=== PATIENT | male | born 1960 | race Caucasian/White ===

== ENCOUNTER 2020-04-20 14:35 | Emergency (ER) | payer MEDICARE, MEDICAID, SELFPAY ==
[2020-04-20] VITALS (29 sets, daily range): BP systolic 116–184; BP diastolic 58–103; PULSE 65–108; RESP 13–32; TEMP 36.7; O2SAT 97–100
[2020-04-20] MEDS: Naloxone 0.4 MG/ML VIAL (14:45)
--- NOTE | 2020-04-20 14:45 | DI.CT_ITS ---
EXAM: CT CHEST/ABD/PEL WO CLINICAL HISTORY: Unresponsive, trauma TECHNIQUE: COMPARISON: No exams were available for comparison FINDINGS: CT examination of the chest, abdomen, and pelvis was performed without contrast administration. No a cute fracture identified. No intrapulmonary infiltrate. No pneumothorax or hemothorax. No mediasti nal hematoma. Tracheobronchial tree appears intact. Liver, spleen, and pancreas grossly unremarkable by noncontrast criteria. Significant motion artifac t noted. Gallbladder and bile ducts grossly unremarkable. Kidneys grossly unremarkable as are the a drenals. No focal bowel pathology. No free intraperitoneal air or free intraperitoneal fluid. No e vidence of bowel obstruction. Normal appendix. No evidence of diverticulitis. Brewster catheter noted in urinary bladder. IMPRESSION: Limited scan secondary to motion and lack of IV contrast. No acute abnormality seen.
--- NOTE | 2020-04-20 14:45 | DI.CT_ITS ---
EXAM: CT HEAD CERVICAL SPINE WO CLINICAL HISTORY: Unresponsive, trauma TECHNIQUE: COMPARISON: No exams were available for comparison FINDINGS: CT examination cervical spine was performed without contrast administration. Old C6-7 anterior fusio n noted. No evidence of acute fracture or dislocation. No cervical mass or adenopathy. Tracheolary ngeal structures appear intact. Noncontrast cranial CT was performed. There is a large intraventricular hemorrhage involving predomi nantly right lateral ventricle but also with hemorrhage in left lateral ventricle 3rd ventricle and 4 th ventricle. There is mild hydrocephalus. The intraventricular hemorrhage is likely to arise from a right-sided basal ganglia hemorrhage which of appears to arise in the caudate head on the right. No calvarial fracture. Unremarkable appearance of paranasal sinuses, mastoid air cells, orbital and temporal bone structures. IMPRESSION: No cervical spine injury seen. Large intraventricular hemorrhage, probably arising in right basal ganglia, findings suggesting hydro cephalus secondary to the intra ventricular blood.
[2020-04-20] MEDS: Ondansetron 4 MG/2 ML VIAL IVP (14:54)
[2020-04-20] MEDS: Normal Saline 1,000 ML 1000 ML IV ×2 (14:54→15:40)
--- NOTE | 2020-04-20 14:55 | ED.GENADUL_ITS ---
Discharge Plan Disposition Patient Disposition: [facility] Condition: Serious Discharge Details Chief Complaint: OD/Poison Clinical Impression: Intracranial hemorrhage Primary Care Provider: Mackenzie Oneal ED Provider: Linden Hendrickson Home Meds and New Rx's Prescriptions: No Action omeprazole 40 mg capsule,delayed release(DR/EC) 40 mg PO DAILY RF: 0 ibuprofen 600 mg tablet 600 mg PO TID PRN PRNRF: 0 Medical Decision Making <EMBER Angel - Last Filed: 04/20/20 16:27> This is a 60-year-old gentleman presenting to the ER via EMS for altered mental status, last known normal time approximately 1 hour ago. Patient is a known alcoholic, has been sober for a few months until drinking again the last 2 weeks. Last drink yesterday. He did snort Ritalin today. Patient presents nonverbal, does seem to move all extremities although does not follow command. Does occasionally open his eyes but again not to command. Given the contusion on his forehead, altered mental status, will initiate a trauma work-up, obtain 2 large-bore IVs, give IV fluid, banana bag. Case was immediately discussed with Dr. Dennis. She did personally evaluate the patient, please see her note. I received a call from radiology regarding his head CT. Appears to have a large intracranial hemorrhage. Given this images were pushed to [facility] and I reached out to [facility] transfer center. I first spoke with Dr. Moreno regarding the case, neurosurgery. He wanted to be sure that coags have been drawn and addressed, at this time they are pending but not resulted. He recommends 1 g IV Keppra. I then discussed the case with Dr. Guerra, ER attending, who accepts care of the patient. All appropriate paperwork was completed As patient returned from CT plan is to intubate. Please see note from Dr. Dennis. Upon return he was no longer opening his eyes spontaneously. He did continue to withdraw from pain, moving all 4 extremities but not on command. I did once again speak with the patient's daughter, Dana, she is aware of the gravity of the situation. Patient is now intubated and awaiting transfer to [facility] for intracranial hemorrhage. Blood pressure after intubation, upon discharge, 140/63. CT of abdomen, pelvis. No acute vascular or visceral or bony injury evident in the chest. Both lungs are well aerated. The heart size is normal, old chronic healed fractures of ribs 8 and 9. Anterior wedge compression fracture of T8, chronic. No acute vascular, visceral, bony injury evident in the abdomen or pelvis. No free intraperitoneal air or fluid. A Brewster catheter is present. No evidence of diverticulitis. X-ray of chest status post intubation reveals distal tip of endotracheal tube lies 6.6 m above the liya at the level of the heads of both clavicles. NG tube placed. Right upper lobe and lower lobe patchy density, could be early foci of acute viral or atypical pneumonia versus pneumonitis versus interstitial pulmonary edema Medical Records Medical records reviewed: Yes I reviewed the patient's medical records. Imaging Data Radiologic Study: Attestation: I personally reviewed and interpreted this imaging study as follows: Imaging: CT Scan My impression: Intracranial hemorrhage including the right basal ganglia and extension into the ventricles with some suggestion of some developing hydrocephalus. No evidence of acute bony injury. I currently do not have a read for the chest, abdomen, pelvis. Lab Data Lab results reviewed: Yes I reviewed the patient's lab results. Lab results narrative: Laboratory Tests Range/Units 04/20/20 04/20/20 04/20/20 14:50 14:50 14:50 WBC (4.4-10.8) k/cumm RBC (4.50-6.00) m/cumm Hgb (13.5-17.5) g/dL Hct (40.0-50.0) % MCV (80-95) fL MCH (27.0-33.0) pg MCHC (32.0-36.0) g/dL RDW (11.8-14.1) % Plt Count (130-400) x1000/uL MPV (8.0-11.0) fL Immature Gran % % Neutrophils % Lymphocytes % Monocytes % Eosinophils % Basophils % Absolute Neutrophils (1.2-6.7) k/cumm Absolute Lymphocytes (1.2-3.4) k/cumm Absolute Monocytes (0.11-0.7) k/cumm Absolute Eosinophils (0.0-0.7) k/cumm Absolute Basophils (0.0-0.2) k/cumm Sodium (136-145) mmol/L 135 L Potassium (3.5-5.1) mmol/L 4.3 Chloride (98-107) mmol/L 99 Carbon Dioxide (21.0-32.0) mmol/L 25.6 Anion Gap (3-11) mmol/L 10.4 BUN (7-18) mg/dL 12 Creatinine (0.70-1.30) mg/dL 0.78 Estimated GFR/1.73 m2 (mL/min/1.73m2) >= 60.00 Glucose (74-106) mg/dL 102 Lactate (0.6-1.4) mmol/L 1.4 Calcium (8.5-10.1) mg/dL 9.0 Magnesium (1.8-2.4) mg/dL 1.8 Total Bilirubin (0.2-1.0) mg/dL 0.8 AST (15-37) U/L 166 H ALT (16-63) U/L 199 H Alkaline Phosphatase (46-116) U/L 80 Troponin I (<0.06) ng/mL < 0.05 Total Protein (6.4-8.2) g/dL 8.5 H Albumin (3.4-5.0) g/dL 4.3 Urine Color (Yellow) Urine Clarity (Clear) Urine pH (5-8) Ur Specific [place] (1.005-1.025) Urine Protein (Negative) mg/dL Urine Ketones (Negative) mg/dL Urine Blood (Negative) Urine Nitrite (Negative) Urine Bilirubin (Negative) Urine Urobilinogen (Up TO 0.2) EU/dL Ur Leukocyte Esterase (Negative) Urine Glucose (Negative) mg/dL Salicylates (2.8-20.0) mg/dL 3.6 Urine Opiates Screen (Negative) Urine Methadone Screen (Negative) Acetaminophen (10-30) ug/mL < 2 Ur Barbiturates Screen (Negative) Ur Tricyclics Screen (Negative) Ur Amphetamines Screen (Negative) U Benzodiazepines Scrn (Negative) Urine Cocaine Screen (Negative) Ur THC Screen (Negative) Ethyl Alcohol (<3) mg/dL < 3.0 Range/Units 04/20/20 04/20/20 04/20/20 14:50 14:50 14:50 WBC (4.4-10.8) k/cumm 6.14 RBC (4.50-6.00) m/cumm 4.55 Hgb (13.5-17.5) g/dL 15.4 Hct (40.0-50.0) % 43.8 MCV (80-95) fL 96.3 H MCH (27.0-33.0) pg 33.8 H MCHC (32.0-36.0) g/dL 35.2 RDW (11.8-14.1) % 12.5 Plt Count (130-400) x1000/uL 183 MPV (8.0-11.0) fL 9.0 Immature Gran % % 0.0 Neutrophils % 74.2 Lymphocytes % 20.2 Monocytes % 5.2 Eosinophils % 0.2 Basophils % 0.2 Absolute Neutrophils (1.2-6.7) k/cumm 4.56 Absolute Lymphocytes (1.2-3.4) k/cumm 1.24 Absolute Monocytes (0.11-0.7) k/cumm 0.32 Absolute Eosinophils (0.0-0.7) k/cumm 0.01 Absolute Basophils (0.0-0.2) k/cumm 0.01 Sodium (136-145) mmol/L Potassium (3.5-5.1) mmol/L Chloride (98-107) mmol/L Carbon Dioxide (21.0-32.0) mmol/L Anion Gap (3-11) mmol/L BUN (7-18) mg/dL Creatinine (0.70-1.30) mg/dL Estimated GFR/1.73 m2 (mL/min/1.73m2) Glucose (74-106) mg/dL Lactate (0.6-1.4) mmol/L Calcium (8.5-10.1) mg/dL Magnesium (1.8-2.4) mg/dL Total Bilirubin (0.2-1.0) mg/dL AST (15-37) U/L ALT (16-63) U/L Alkaline Phosphatase (46-116) U/L Troponin I (<0.06) ng/mL Total Protein (6.4-8.2) g/dL Albumin (3.4-5.0) g/dL Urine Color (Yellow) Yellow Urine Clarity (Clear) Clear Urine pH (5-8) 6.0 Ur Specific [place] (1.005-1.025) 1.025 Urine Protein (Negative) mg/dL Negative Urine Ketones (Negative) mg/dL 80 H Urine Blood (Negative) Negative Urine Nitrite (Negative) Negative Urine Bilirubin (Negative) Negative Urine Urobilinogen (Up TO 0.2) EU/dL 1.0 H Ur Leukocyte Esterase (Negative) Negative Urine Glucose (Negative) mg/dL Negative Salicylates (2.8-20.0) mg/dL Urine Opiates Screen (Negative) Negative Urine Methadone Screen (Negative) Negative Acetaminophen (10-30) ug/mL Ur Barbiturates Screen (Negative) Negative Ur Tricyclics Screen (Negative) Negative Ur Amphetamines Screen (Negative) Negative U Benzodiazepines Scrn (Negative) Negative Urine Cocaine Screen (Negative) Negative Ur THC Screen (Negative) Positive A Ethyl Alcohol (<3) mg/dL ECG Data Attestation: I personally reviewed and interpreted this ECG (s) as follows: Interpretation: EKG performed at 1441, reviewed and interpreted Dr. Dennis. Sinus rhythm, ventricular rate of 80. No STEMI. <Khadijah Dennis, DO - Last Filed: 04/20/20 18:21> I have seen and examined this patient from the moment of arrival to the ED and participated throughout his stay in the ED. Blood pressure hypertensive, remainder vitals within normal limits on arrival. He has a positive gag reflex, was responsive to painful stimuli and voice but did not open his eyes or speak. GCS 6. No response to Narcan 0.4 mg x 1. Patient sent directly to CT. Patient noted to have large intracranial hemorrhage right basal ganglia with extension into the ventricles. Shortly after return from CT, still with positive gag reflex and normal vitals, plan for intubation given GCS 6 in setting of intracranial hemorrhage. Patient was given 20 mg of etomidate and 80 mg of succinylcholine. Intubation first attempted by EMBER Hendrickson without visualization of the cords. I was able to intubate him on first attempt with visualization of the cords. Tube initially placed with 28cm at the teeth but diminished breath sounds noted equally on auscultation. Tube then pulled back to 23cm at the teeth and breath sounds improved. ET tube confirmed by portable chest x-ray. Suspect possibly acute cva secondary to hypertensive emergency status post acute ritalin intoxication. I discussed case and reviewed note with the PA and I agree with plan and note as documented. Medical Records Medical records reviewed: Yes I reviewed the patient's medical records. HPI <EMBER Angel - Last Filed: 04/20/20 16:27> General Mode of arrival: EMS . Date/Time Provider Initiated Documentation: 04/20/20 14:37 . Limitations to Documentation: altered mental status . Information obtained by: family (Significant other spoke with EMS) and EMS . HPI Narrative: This is a 60-year-old gentleman with history of GERD, alcohol abuse, presenting to the ER via EMS. Apparently last known normal time was approximately 1 hour ago although this timeframe is not certain. His significant other found him unresponsive. Apparently per her he has not been drinking alcohol today but has been snorting Ritalin. Unknown other drug use. Extremely limited initial HPI. I was able to speak with his daughter and power of assistant city attorney Dana Burnett. She reports that he has been sober since November, just starting to drink over the past 2-3 weeks. He does occasionally use marijuana but she is not aware of any other drug use. She is unaware of recent illness. Apparently roughly 1 week ago while intoxicated he did fall striking his head. Related Data Home Medications Medication Instructions Recorded Confirmed ibuprofen 600 mg PO TID PRN PRN 04/20/20 04/20/20 omeprazole 40 mg PO DAILY 04/20/20 04/20/20 Allergies Allergy/AdvReac Type Severity Reaction Status Date / Time No Known Allergies Allergy Unverified 04/20/20 14:47 General Stated Complaint: OD/Poison NELDA: 2 Review of Systems <EMBER Angel - Last Filed: 04/20/20 16:27> Unobtainable due to mental status PFSH <EMBER Angel - Last Filed: 04/20/20 16:27> Social History Smoking/Tobacco Use Status: Current every day Alcohol Intake: current Substance use type: marijuana and other Details: Ritalin-snorting Exam <EMBER Angel - Last Filed: 04/20/20 16:27> Const General: acute distress Orientation: obtunded (Patient does withdrawal from pain, occasionally opens eyes) Limitations: altered mental status HENWY Head: no palpable skull fracture, normocephalic and contusion (Across the forehead) General nose exam: external nose normal Mouth: oral mucosae normal and moist mucous membranes Teeth and gingiva: poor dentition Throat: posterior oropharynx normal Eyes General: appearance normal, both eyes and all related structures Alignment and Position: alignment normal Periorbital: periorbital findings normal Eyelids: eyelids normal Conjunctivae: conjunctivae normal Sclera: sclerae normal Cornea: corneas normal Pupils: PERRL Direct ophthalmoscopy: normal light reflex Neck Neck: normal visual inspection, no lymphadenopathy, trachea midline and supple Chest Chest: normal inspection of the chest and normal palpation of entire chest wall Resp Effort & Inspection: normal respiratory effort Auscultation: clear to auscultation bilaterally Cardio Rate: regular rate Rhythm: regular rhythm GI Inspection: normal to inspection Palpation: soft, not firm, no guarding and not rigid Auscultation: normal bowel sounds Back/Spine/Pelvis Back: No back tenderness Skin General skin exam: no rashes or lesions noted Neuro General: moves all extremities and other (Patient is obtunded, occasionally opens eyes.) Cognition: abnormal cognition Speech: other (Unable to assess. Extremely limited neuro exam) Extrem General: normal to inspection, capillary refill normal and no pedal edema Psych Appearance: grossly normal Mental Status: mental status grossly normal Course <Linden Hendrickson PA - Last Filed: 04/20/20 16:27> Vital Signs Vital signs: Vital Signs Pulse Oximetry 99 04/20/20 14:30 Temperature 36.7 C 04/20/20 14:35 Temperature Source Temporal Artery Scan 04/20/20 14:35 Pulse 82 04/20/20 14:35 Respiratory Rate 23 04/20/20 14:35 Respiratory Effort Non-Labored 04/20/20 14:40 Blood Pressure 184/87 H 04/20/20 14:35 Blood Pressure Position Supine 04/20/20 14:35 Pulse Oximetry 99 04/20/20 14:35 Oxygen Delivery Method Non-Rebreather 04/20/20 14:35 Oxygen Flow Rate 10 04/20/20 14:35 <Khadijah Dennis DO - Last Filed: 04/20/20 18:21> Intubation Time out performed: Yes sedative: Etomidate Mg Given: 20 paralytic: Succinylcholine Mg Given: 80 Laryngoscope: Denisha ET Tube Size: 7.5 ET Tube Uncuffed: No Tube Secured Depth (cm): 23 Tube Secured Location: teeth Tube Placement Confirmation: visualized tube passing through cords, equal breath sounds bilaterally, no breath sounds over epigastrum and confirmation by capnometry Patient Tolerated Procedure: well Intubation Complications: none Critical Care Time <EMBER Angel - Last Filed: 04/20/20 16:27> Critical Care Time Critical Care Time: Yes Total Critical Care Time: 40 Attestation: Upon my evaluation, this patient had a high probability of clinically significant, life-threatening deterioration due to their current medical conditions, which required my direct attention, intervention, and personal management. I have personally provided greater than 30 minutes of crit ical care time exclusive of the time spend on separately billable procedures. Time includes obtaining a history, examining the patient, pulse oximetry, review of laboratory data, radiology results, discussion with consultants, arranging urgent treatment with development of a management plan, evaluation of patient's response to treatment, and monitoring for potential decompensation. Interventions were performed as documented above.
[2020-04-20 14:57] LABS: Lactate 1.4 mmol/L (0.6-1.4)
[2020-04-20 15:01] LABS: Absolute Basophil Count 0.01 k/cumm (0.0-0.2); Absolute Eosinophil Count 0.01 k/cumm (0.0-0.7); Absolute Lymphocyte Count 1.24 k/cumm (1.2-3.4); Absolute Monocyte Count 0.32 k/cumm (0.11-0.7); Absolute Neutrophil Count 4.56 k/cumm (1.2-6.7); Basophils % 0.2; Eosinophils % 0.2; HCT 43.8 % (40.0-50.0); HGB 15.4 g/dL (13.5-17.5); Lymphocytes % 20.2; Mean Corp. HGB Concentration 35.2 g/dL (32.0-36.0); Mean Corpuscular Hemoglobin 33.8 pg (27.0-33.0); Mean Corpuscular Volume 96.3 fL (80-95); Monocytes % 5.2; Neutrophils % 74.2; Platelet Count 183 x1000/uL (130-400); RBC 4.55 m/cumm (4.50-6.00); RBC Distribution Width 12.5 % (11.8-14.1); White Blood Cell Count 6.14 k/cumm (4.4-10.8)
[2020-04-20 15:03] LABS: Bilirubin Negative (Negative); Blood Negative (Negative); Clarity Clear (Clear); Glucose Negative (Negative); Ketones 80 mg/dL (Negative); Leukocyte Esterase Negative (Negative); Nitrite Negative (Negative); Specific Gravity 1.025 (1.005-1.025)
[2020-04-20 15:11] LABS: Tricyclic Antidepressants Negative (Negative)
[2020-04-20 15:19] LABS: *AMPHETAMINES SCREEN URINE Negative (Negative); *BARBITURATES SCREEN URINE Negative (Negative); *BENZODIAZEPINES SCREEN URINE Negative (Negative); Cannabinoids THC POSITIVE (Negative); Cocaine Screen,Urine Negative (Negative); METHADONE URINE SCREEN Negative (Negative); OPIATES URINE SCREEN Negative (Negative)
[2020-04-20 15:20] LABS: ALT 199 U/L (16-63); AST 166 U/L (15-37); Albumin 4.3 g/dL (3.4-5.0); Alkaline Phosphatase 80 U/L (46-116); Anion Gap 10.4 mmol/L (3-11); BUN 12 mg/dL (7-18); Bilirubin, Total 0.8 mg/dL (0.2-1.0); CO2 25.6 mmol/L (21.0-32.0); CREATININE 0.78 mg/dL (0.70-1.30); Chloride 99 mmol/L (98-107); Glucose 102 mg/dL (74-106); Magnesium 1.8 mg/dL (1.8-2.4); Potassium 4.3 mmol/L (3.5-5.1); Sodium 135 mmol/L (136-145); Total Protein 8.5 g/dL (6.4-8.2)
[2020-04-20 15:21] LABS: Troponin I < 0.05 ng/mL (<0.06)
[2020-04-20 15:33] LABS: Acetaminophen < 2 ug/mL (10-30); Salicylate 3.6 mg/dL (2.8-20.0)
[2020-04-20 15:36] LABS: ETHANOL BLOOD < 3.0 mg/dL (<3)
[2020-04-20] MEDS: Succinylcholine 200 MG/10 ML VIAL 80 MG IVP (15:49)
--- NOTE | 2020-04-20 15:52 | DI.VRAD_ITS ---
Addendum created by Mohamud Singh MD on 04/20/2020 4:08:05 PM EDT THIS REPORT CONTAINS FINDINGS THAT MAY BE CRITICAL TO PATIENT CARE. The findings were verbally communicated via telephone conference with Linden Hendrickson at 4:08 PM EDTon 04/20/2020The findings were acknowledged and understood. Initial report created on 04/20/2020 3:51:52 PM EDT PROCEDURE INFORMATION: Exam: CT Head Without Contrast Exam date and time: 04/20/2020 3:18 PM Age: 60 years old Clinical indication: Other: Unresponsive, trauma TECHNIQUE: Imaging protocol: Computed tomography of the head without contrast. Radiation optimization: All CT scans at this facility use at least one of these dose optimization techniques: automated exposure control; mA and/or kV adjustment per patient size (includes targeted exams where dose is matched to clinical indication); or iterative reconstruction. COMPARISON: No relevant prior studies available. FINDINGS: What appears to be a small right basal ganglia intraparenchymal hemorrhage with extensive extension into the ventricles including extending down into the 4th ventricle most likely with some developing hydrocephalus. Periventricular deep white matter disease consistent with small vessel ischemia. No definite evidence of acute ischemia. Skull appears intact. IMPRESSION: Intra cranial hemorrhage including the right basal ganglia and extension into the ventricles with some suggestion of some developing hydrocephalus. PROCEDURE INFORMATION: Exam: CT Cervical Spine Without Contrast Exam date and time: 04/20/2020 3:18 PM Age: 60 years old Clinical indication: Other: Unresponsive, trauma TECHNIQUE: Imaging protocol: Computed tomography images of the cervical spine without contrast. Radiation optimization: All CT scans at this facility use at least one of these dose optimization techniques: automated exposure control; mA and/or kV adjustment per patient size (includes targeted exams where dose is matched to clinical indication); or iterative reconstruction. COMPARISON: No relevant prior studies available. FINDINGS: Prior anterior interbody fusion at C6-C7. Mild diffuse degenerative disc and facet disease. No evidence of acute fracture. No focal subluxation. IMPRESSION: No evidence of acute bony injury. Dictated and Authenticated by: Mohamud Singh MD. Ordering:BENOIT Cheatham MD
[2020-04-20] MEDS: PROPOFOL 500 MG/50 ML BTL 20.91 MG IVPB (16:02)
[2020-04-20] MEDS: MAGNESIUM SULFATE 8.12 MEQ, MULTIVITAMIN 10 ML, THIAMINE 100 MG, FOLIC ACID 1 MG in Nor... 168.867 MG IV (16:06)
[2020-04-20] MEDS: Etomidate 20 MG/10 ML VIAL IVP (16:08)
[2020-04-20] MEDS: levETIRAcetam 1,000 MG in Normal Saline 100 ML 400 MG IVPB (16:10)
[2020-04-20 16:14] LABS: INR 1.1 (0.9-1.1); PTT Activated 22.5 sec (21.0-31.4); Prothrombin Time 11.4 sec (9.3-11.0)
--- NOTE | 2020-04-20 16:16 | DI.VRAD_ITS ---
PROCEDURE INFORMATION: Exam: CT Chest Without Contrast Exam date and time: 04/20/2020 3:27 PM Age: 60 years old Clinical indication: Other: Unresponsive, trauma TECHNIQUE: Imaging protocol: Computed tomography of the chest without contrast. Radiation optimization: All CT scans at this facility use at least one of these dose optimization techniques: automated exposure control; mA and/or kV adjustment per patient size (includes targeted exams where dose is matched to clinical indication); or iterative reconstruction. COMPARISON: No relevant prior studies available. FINDINGS: Lungs: Both lungs are well-aerated. Pleural space: Unremarkable. No pneumothorax. No pleural effusion. Heart: The heart size is normal. Minimal coronary artery calcification is present. Aorta: Unremarkable. No aortic aneurysm. Lymph nodes: Unremarkable. No enlarged lymph nodes. Bones/joints: No acute bony injury evident in the chest. Old chronic healed fractures of the posterior and posterolateral right ribs 8 and 9 are present. An old chronic anterior wedge compression fracture of the superior endplate of T8 is present with anterior and central height loss of approximately 25%. Soft tissues: Unremarkable. IMPRESSION: 1. No acute vascular, visceral or bony injury evident in the chest. 2. Both lungs are well-aerated. 3. The heart size is normal. Minimal coronary artery calcification is present. 4. Old chronic healed fractures of the posterior and posterolateral right ribs 8 and 9 are present. 5. An old chronic anterior wedge compression fracture of the superior endplate of T8 is present with anterior and central height loss of approximately 25%. PROCEDURE INFORMATION: Exam: CT Abdomen And Pelvis Without Contrast Exam date and time: 04/20/2020 3:27 PM Age: 60 years old Clinical indication: Other: Unresponsive, trauma TECHNIQUE: Imaging protocol: Computed tomography of the abdomen and pelvis without contrast. Radiation optimization: All CT scans at this facility use at least one of these dose optimization techniques: automated exposure control; mA and/or kV adjustment per patient size (includes targeted exams where dose is matched to clinical indication); or iterative reconstruction. COMPARISON: No relevant prior studies available. FINDINGS: Liver: Normal. No mass. Gallbladder and bile ducts: Normal. No calcified stones. No ductal dilation. Pancreas: Normal. No ductal dilation. Spleen: Normal. No splenomegaly. Adrenals: Normal. No mass. Kidneys and ureters: Normal. No hydronephrosis. Stomach and bowel: Moderate distal colonic diverticulosis is present, with no evidence of acute diverticulitis. Appendix: No evidence of appendicitis. Intraperitoneal space: No free intraperitoneal air or fluid. Vasculature: No acute vascular, visceral or bony injury evident in the abdomen or pelvis. Lymph nodes: Unremarkable. No enlarged lymph nodes. Bladder: A Brewster catheter is present within the urinary bladder. Reproductive: Unremarkable as visualized. Bones/joints: An old chronic anterior wedge compression fracture of the superior endplate of L5 is present with anterior and central height loss of approximately 30-35%. Soft tissues: Unremarkable. IMPRESSION: 1. No acute vascular, visceral or bony injury evident in the abdomen or pelvis. 2. No free intraperitoneal air or fluid. 3. Moderate distal colonic diverticulosis is present, with no evidence of acute diverticulitis. 4. A Brewster catheter is present within the urinary bladder. 5. An old chronic anterior wedge compression fracture of the superior endplate of L5 is present with anterior and central height loss of approximately 30-35%. Dictated and Authenticated by: Hakan Chiang MD. Ordering:BENOIT Cheatham MD
--- NOTE | 2020-04-20 16:17 | DI.RAD_ITS ---
EXAM: XR PORTABLE CHEST AP POST LINE CLINICAL HISTORY: s/p intubation TECHNIQUE: COMPARISON: CR CHEST 2 VIEWS PA,LAT from 03/03/2015 FINDINGS: Portable AP chest was performed in supine position. Cardiac size within normal limits. Lungs are gr ossly clear. ET tube noted about 7 cm above the liya. NG tube noted in position. IMPRESSION:
--- NOTE | 2020-04-20 16:20 | DI.VRAD_ITS ---
Addendum created by Hakan Chiang MD on 04/20/2020 4:21:46 PM EDT The accompanying CT chest exam shows no evidence of abnormal lung parenchyma in the right upper and right lower lobes, however. These likely represent radiographic artifact on the chest x-ray. Initial report created on 04/20/2020 4:20:23 PM EDT PROCEDURE INFORMATION: Exam: XR Chest, 1 View Exam date and time: 04/20/2020 4:09 PM Age: 60 years old Clinical indication: Device placement; Other: S/P intubation TECHNIQUE: Imaging protocol: XR of the chest Views: 1 view. COMPARISON: No relevant prior studies available. FINDINGS: Tubes, catheters and devices: The distal tip of an endotracheal tube lies 6.6 cm above the liya at the level of the heads of both clavicles. An esophagogastric tube is present with the distal tip of the tube below the diaphragm outside the field of view of the radiograph. Lungs: Small patchy areas of increased interstitial density are seen in the right upper lobe and right lower lobe. These could represent early foci of acute viral or atypical pneumonia/pneumonitis versus interstitial pulmonary edema. Pleural space: Unremarkable. No pleural effusion. No pneumothorax. Heart/Mediastinum: Unremarkable. No cardiomegaly. Bones/joints: Plate and screw fixation metallic hardware is seen in the lower cervical spine. IMPRESSION: 1. The distal tip of an endotracheal tube lies 6.6 cm above the liya at the level of the heads of both clavicles. 2. An esophagogastric tube is present with the distal tip of the tube below the diaphragm outside the field of view of the radiograph. 3. Small patchy areas of increased interstitial density are seen in the right upper lobe and right lower lobe. These could represent early foci of acute viral or atypical pneumonia/pneumonitis versus interstitial pulmonary edema. Dictated and Authenticated by: Hakan Chiang MD. Ordering:BENOIT Cheatham MD
[2020-04-20] MEDS: Normal Saline Flush 10 ML SYR IVP (17:12)
[2020-04-20] MEDS: PROPOFOL 500 MG/50 ML BTL IVPB (18:07)
--- NOTE | 2020-04-20 18:08 | NUR.NOTE ---
versed drip not given. DART did not want to use it.Nursing Note:
--- NOTE | 2020-04-21 14:22 | NUR.NOTE ---
30 propofol started at 5/mcg and increased to 40 mcg/kg/min. 2 boluses of 20mg given.Nursing Note:
== END 2020-04-20 16:45 | disposition short-term general hospital (02) ==
PROVIDERS: Emergency Provider Physician Assistant; PCP Nurse Practitioner Family
DX: T43.631A Poisoning by methylphenidate, accidental (unintentional), initial encounter (principal); I62.9 Nontraumatic intracranial hemorrhage, unspecified; S00.83XA Contusion of other part of head, initial encounter; W19.XXXA Unspecified fall, initial encounter; F10.20 Alcohol dependence, uncomplicated; F15.10 Other stimulant abuse, uncomplicated; I10 Essential (primary) hypertension; R40.2432 Glasgow coma scale score 3-8, at arrival to emergency department
CPT/HCPCS: 31500; 36415; 36416; 51702; 71045; 71250; 80053; 80307; 82962; 93005; 96361; 96365; 96368; 96374; 96375; 96376; 99291; 70450; 72125; 74176; 80320; 80329; 81003; 83605; 83735; 84484; 85025; 85610; 85730; 93010; J1953; J2310; J2405

== ENCOUNTER 2020-06-28 16:39 | Outpatient (REF) | payer MEDICARE, MEDICAID, SELFPAY ==
[2020-06-28 17:59] LABS: HCT 41.9 % (40.0-50.0); HGB 14.1 g/dL (13.5-17.5); MCH 33.7 pg (27.0-33.0); MCHC 33.7 % (32.0-36.0); MPV 9.3 fL (8.0-11.0); Platelet Count 290 10^3/uL (130-400); RBC 4.19 10^6/uL (4.36-5.78); RDW 12.8 % (11.8-14.1); RDW-SD 47.2 fL
[2020-06-28 18:00] LABS: Anion Gap 7.3 mmol/L (3-11); BUN 10 mg/dL (7-18); CO2 29.7 mmol/L (21.0-32.0); CREATININE 0.74 mg/dL (0.70-1.30); Calcium 9.4 mg/dL (8.5-10.1); Chloride 101 mmol/L (98-107); Glucose 99 mg/dL (74-106); Potassium 4.5 mmol/L (3.5-5.1); Sodium 138 mmol/L (136-145); TSH (W/Ref FT4) 2.36 uIU/mL (0.36-3.74)
[2020-06-28 19:08] LABS: ESR 21 mm/hr (1-20)
== END 2020-06-28 16:59 ==
LOC: NCHCN 16:39
PROVIDERS: PCP Nurse Practitioner Family; Visit Provider Nurse Practitioner Family
DX: R51 Headache (principal); I10 Essential (primary) hypertension
CPT/HCPCS: 80048; 85027; 85652; 83735; 84443

== ENCOUNTER 2020-07-05 12:23 | Outpatient (REF) | payer MEDICARE, MEDICAID, SELFPAY ==
[2020-07-05 20:35] LABS: INR 1.1 (0.9-1.1); Prothrombin Time 10.9 sec (9.3-11.0)
[2020-07-05 20:56] LABS: ALT 46 U/L (16-63); AST 34 U/L (15-37); Albumin 3.7 g/dL (3.4-5.0); Alkaline Phosphatase 74 U/L (46-116); Bilirubin, Direct 0.12 mg/dL (0.00-0.20); Bilirubin, Total 0.4 mg/dL (0.2-1.0); Total Protein 7.5 g/dL (6.4-8.2)
[2020-07-08 09:11] LABS: HBs Antibody, Quant <3.1 mIU/mL (See Note); Hepatitis B Surface Ab Negative (See Note)
[2020-07-08 09:21] LABS: Hepatitis B Surface Ag Negative (Negative)
[2020-07-08 10:33] LABS: HIV-1/2 Ag & Ab Screen Negative (Negative)
[2020-07-08 10:36] LABS: Hep A Total Ab w Rflx IgM Positive (Negative)
[2020-07-08 13:45] LABS: HCV RNA Detection Quantitative 10719 IU/mL (Undetected); HCV RNA Qualitative Detected (Undetected)
[2020-07-08 14:29] LABS: Hep A Antibody IgM Negative (Negative)
[2020-07-12 14:43] LABS: ALT 36 U/L (7-55); ActiTest Grade A1; ActiTest Interpretation minimal activity; ActiTest Score 0.29; Alpha-2-Macroglobulin 448 mg/dL (100 - 280); Apoliprotein A1 124 mg/dL (>=120); Bilirubin, Total 0.3 mg/dL (<=1.2); FibroTest Interpretation advanced fibrosis; FibroTest Score 0.68; FibroTest Stage F3; GGT 73 U/L (8 - 61); Haptoglobin 172 mg/dL (30 - 200)
== END 2020-07-05 12:43 ==
LOC: NCHCN 12:23
PROVIDERS: PCP Nurse Practitioner Family; Visit Provider Family Medicine
DX: B18.2 Chronic viral hepatitis C (principal); Z11.4 Encounter for screening for human immunodeficiency virus [HIV]
CPT/HCPCS: 80076; 81596; 86706; 86709; 87340; 87389; 87522; 85610; 86704; 87521

== ENCOUNTER 2023-03-08 13:41 | Outpatient (REF) | payer MEDICARE, MEDICAID, SELFPAY ==
[2023-03-08 15:23] LABS: HCT 42.3 % (40.0-50.0); MCH 33.9 pg (27.0-33.0); MCHC 35.5 % (32.0-36.0); MCV 96 fL (80-95); MPV 9.2 fL (8.0-11.0); Platelet Count 169 10^3/uL (130-400); RBC 4.43 10^6/uL (4.36-5.78); RDW 12.6 % (11.8-14.1); RDW-SD 44.6 fL; WBC 5.03 10^3/uL (4.4-10.8)
[2023-03-08 15:34] LABS: ALT 75 U/L (16-63); AST 96 U/L (15-37); Albumin 3.4 g/dL (3.4-5.0); Alkaline Phosphatase 102 U/L (46-116); Anion Gap 7.3 mmol/L (3-11); BUN 9 mg/dL (7-18); Bilirubin, Total 0.7 mg/dL (0.2-1.0); CO2 28.7 mmol/L (21.0-32.0); CREATININE 0.9 mg/dL (0.70-1.30); Calcium 8.8 mg/dL (8.5-10.1); Calculated LDL 127 mg/dL (<100); Chloride 102 mmol/L (98-107); Cholesterol 191 mg/dL (<200); Estimated GFR 95.37 (mL/min/1.73m2); Glucose 93 mg/dL (74-106); HDL Cholesterol 46 mg/dL (40-60); Sodium 138 mmol/L (136-145); Total Protein 7.5 g/dL (6.4-8.2); Triglyceride 94 mg/dL (<150)
[2023-03-09 21:04] LABS: Hepatitis C Ab w Rflx HCV PCR Reactive (Negative)
[2023-03-10 17:17] LABS: HCV RNA Detection Quantitative 64700 IU/mL (Undetected); HCV RNA Qualitative Detected (Undetected)
== END 2023-03-08 13:42 | disposition home or self-care (01) ==
LOC: NCHCN 13:41
PROVIDERS: PCP Physician Assistant; Visit Provider Physician Assistant
DX: I10 Essential (primary) hypertension (principal); B18.2 Chronic viral hepatitis C; F10.10 Alcohol abuse, uncomplicated
CPT/HCPCS: 80053; 80061; 85027; 86803; 87522

== ENCOUNTER 2024-07-28 21:06 | Emergency (ER) | payer MEDICARE, MEDICAID, SELFPAY ==
[2024-07-28] VITALS (25 sets, daily range): BP systolic 132–163; BP diastolic 63–88; PULSE 68–90; RESP 11–27; O2SAT 91–96
--- NOTE | 2024-07-28 21:15 | RT.EKG_ITS ---
APPROVED REPORT Exam: Resting ECG Reason for Exam: baseline/screening Patient Location: E HR:83 bpm ECG Measurements Heart Rate 83 AXIS NV 172 P 85 QRSd 107 QRS 52 QT 402 T 82 QTc 472 Conclusion Sinus rhythm, rate 83 Intervals normal, no ectopy No STEMI T-wave inversion Lead aVL No priors available for comparison
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
[2024-07-28 21:38] LABS: Abs Immature Grans 0.01 10^3/uL (0.0-0.06); HCT 39.8 % (40.0-50.0); HGB 13.8 g/dL (13.5-17.5); MCH 34.7 pg (27.0-33.0); MCHC 34.7 % (32.0-36.0); MCV 100 fL (80-95); MPV 8.4 fL (8.0-11.0); Platelet Count 158 10^3/uL (130-400); RBC 3.98 10^6/uL (4.36-5.78); RDW 12.5 % (11.8-14.1); RDW-SD 46.5 fL; WBC 4.52 10^3/uL (4.4-10.8)
[2024-07-28 21:55] LABS: ALT 87 U/L (16-63); AST 110 U/L (15-37); Albumin 3.3 g/dL (3.4-5.0); Alkaline Phosphatase 96 U/L (46-116); Anion Gap 11.1 mmol/L (3-11); BUN 7 mg/dL (7-18); Bilirubin, Direct 0.2 mg/dL (0.0-0.2); Bilirubin, Total 0.29 mg/dL (0.2-1.0); CO2 23.9 mmol/L (21.0-32.0); CREATININE 0.7 mg/dL (0.70-1.30); Calcium 8.3 mg/dL (8.5-10.1); Chloride 100 mmol/L (98-107); Creatine Kinase 175 U/L (39-308); ETHANOL BLOOD 264.8 mg/dL (<10); Estimated GFR 102.25 (mL/min/1.73m2); Glucose 97 mg/dL (74-106); Lipase 160 U/L (16-77); Magnesium 2.1 mg/dL (1.8-2.4); Potassium 3.5 mmol/L (3.5-5.1); Sodium 135 mmol/L (136-145); Troponin I 9 ng/L (4-76)
[2024-07-28 22:05] LABS: Absolute Eosinophil Count 0.05 10^3/uL (0.0-0.7); Absolute Lymphocyte Count 2.08 10^3/uL (1.2-3.4); Absolute Monocyte Count 0.54 10^3/uL (0.1-0.8); Absolute Neutrophil Count 1.85 10^3/uL (1.2-6.7); Atypical Lymphocytes % 3 %; Diff Comment Manual Differential; RBC Morphology Normal
[2024-07-28 22:09] LABS: Ammonia 14 umol/L (11-32)
[2024-07-28] MEDS: MAGNESIUM SULFATE 8.12 MEQ, MULTIVITAMIN 10 ML, THIAMINE 100 MG, FOLIC ACID 1 MG in Nor... 168.867 MG IV (22:18)
--- NOTE | 2024-07-28 22:20 | NUR.NOTE ---
Nursing Note: assumed care of pt. pt was out of bed urinating in the garbage and then crawled back into bed. C collar on the floor. pt is slurring his words so bad it is hard to understand what he is saying. He said he had a little to drink tonight when asked. Asked if he snorted any ritalin he just laughed
[2024-07-28 22:22] LABS: Procalcitonin < 0.1 ng/mL
[2024-07-28] MEDS: Omnipaque 350 MG/ML 100 ML BTL IJ (22:26)
[2024-07-28] MEDS: Normal Saline Flush 10 ML SYR IVP (22:27)
[2024-07-28] MEDS: Normal Saline - Diluent 50 ML VIAL IJ (22:27)
--- OUTSIDE RECORDS SUMMARY | 2024-07-28 22:42 | XMS_ITS | Encounter Summary ---
Author Organization [facility] [place] [address] Care Team Providers Care Wind Farm Designer Name Role Phone Andrea Coker DNP Primary Care Provider Encounter Details Date Type Department Care Team (Latest Contact Info) Description 05/10/2020 1:55 PM EDT - 05/31/2020 3:15 PM EDT Hospital Encounter [facility] [place] [address] [place] [phone] Penelope Melendez MD [address] [place] [address] Chronic hepatitis C without hepatic coma; Intraventricular hemorrhage; Hypertension, unspecified type; Hemiparesis of left nondominant side due to cerebrovascular disease Discharge Disposition: Home with VNA Social History Tobacco Use Types Packs/Day Years Used Date Smoking Tobacco: Every Day Smokeless Tobacco: Never Alcohol Use Standard Drinks/Week Comments Yes 0 (1 standard drink = 0.6 oz pur e alcohol) Sex and Gender Information Value Date Recorded Sex Assigned at Not on file Gender Identity Not on file Sexual Orientation Not on file documented as of this encounter Last Filed Vital Signs Vital Sign Reading Time Taken Comments Blood Pressure 109/68 05/31/2020 10:57 AM EDT Pulse 94 05/28/2020 4:00 PM EDT Temperature 36.6 ??C (97.8 ??F) 05/31/2020 9:13 AM ED T Respiratory Rate 16 05/31/2020 9:13 AM EDT Oxygen Saturation 96% 05/31/2020 9:13 AM EDT Inhaled Oxygen Concentration - - Weight 58.8 kg (129 lb 9.6 oz) 05/25/2020 9:00 A M EDT Height 172.7 cm (5' 8) 05/10/2020 2:08 PM EDT Body Mass Index 19.71 05/10/2020 2:08 PM EDT documented in this encounter Discharge Summaries * Penelope Melendez MD - 05/31/2020 11:08 AM EDT Discharge Summary Patient Name: Yaritza Burnett Sr. Patient Age: 60 y.o. Language: [place] Race: White Ethnicity: Not nor Admit date: 05/10/2020 Discharge date and time: 05/31/2020 Attending Physician: Penelope Melendez MD Discharge Physician: PENELOPE MELENDEZ MD Follow-up Recommendations for Providers: 1. Patient needs follow-up with primary care or gastroenterology regarding definitive treatment forhepatitis C. Discharge Diagnoses (Hospital Problems) and Secondary Diagnoses (Chronic Problems): Active Hospital Problems Diagnosis ??? Hepatitis C virus infection without hepatic coma ??? Intraparenchymal hematoma of brain ??? Hypertension ??? Hemiparesis of left nondominant side due to cerebrovascular disease ??? Dysphagia due to recent cerebrovascular accident ??? SIADH (syndrome of inappropriate ADH production) ??? DVT (deep venous thrombosis) LLE ??? Superficial venous thrombosis of arm, bilateral ??? Intraventricular hemorrhage Resolved Hospital Problems No resolved problems to display. Active Non-Hospital Problems Diagnosis ??? Drug abuse ??? Pneumonia due to Haemophilus influenzae ??? Compression of brain due to spontaneous cerebral hemorrhage Operations/Major Procedures: Operations: Other Major Procedures: History of Presentation: ID: Yaritza Burnett Sr. is a 60 y.o. male who presents to [facility] with left hemiparesis (nondominant) secondary to stroke. ?? History of Present Illness: Patient is a 60-year-old right-handed male patient who is not able to tell me who his primary care providers who on 04/20/2020 was brought to [facility] with acute mental status changes. CT scan there showed very large intraventricular hemorrhage. He was transferred to [facility] for neurosurgical evaluation. ?? CT/CTA 04/20/2020 showed right caudate intraparenchymal hemorrhage with intraventricular extension; supratentorial hydrocephalus; no aneurysm or large vessel occlusion. MRI brain 04/21/2020 showed right basal ganglia hemorrhage with intraventricular extension and ventricular enlargement; no underlying mass. MRI brain 04/23/2020 showed scattered punctate central and white matter infarcts likely microembolic right greater than left; known basal ganglia hemorrhage. CT of the brain 05/01/2020 showed improvement of intraventricular hemorrhage with stable right intraparenchymal hemorrhage. MRI/MRA brain 05/03/2020 showed persistent ventriculomegaly and extensive intraventricular hemorrhage; no new changes; no changes from prior study. ?? Transthoracic echocardiogram 04/22/2020 showed normal left ventricular size and motion with ejection fraction 60%. Venous duplex bilateral lower extremities 04/29/2020 showed right was negative for DVT; left subacute/chronic nonocclusive DVT. Venous duplex bilateral upper extremity 05/01/2020 showed right acute superficial thrombosis; left nonocclusive DVT subclavian vein; acute superficial thrombus basilic vein left upper extremity. Venous duplex bilateral lower extremity 05/06/2020 showed no change. ?? He was diagnosed with SIADH and was on fluid restriction. This has since resolved. He was also treated for an H. influenzae pneumonia. Preadmission Functional Status: Max assist to dependent for ADLs. Dependent for bed mobility transfers. Social/Functional History: Patient states he is and lives in a trailer with no steps the front door. He was independent with his ambulation ADLs. He denies any bowel or bladder complaints. He states he does not drive and does not have a handicap placard. Hospital Course: Left hemiparesis (nondominant) secondary to stroke: Patient has done extremely well. At the time ofdischarge he was independent in his room. Follow-up with primary care. He has had excellent recovery. Etiology was felt to be hypertensive bleed. His blood pressure was well controlled and will be discussed further below. Hypertension: Patient came to rehab on lisinopril and amlodipine. His blood pressure medications were frequently held because of hypotension and they were eventually both discontinued. He did well off of them up until just before discharge. Couple days prior to discharge his blood pressure was again registering in the 130s and 140s systolically. He was restarted on amlodipine at 10 mg however hispressures then dropped back down into the low 100s or even less than 100 systolically. His amlodipine then was decreased to 5 mg and he will go home on that. Talked with the patient about getting a blood pressure cuff and monitor his pressures so we can better communicate with primary care. Home [facility] nursing will also be monitoring his blood pressure. Dysphagia: He did well. Modified barium swallow that showed relatively normal functioning. His dietwas advanced to mechanical soft and thin liquids. Patient however chose to be on a pur??ed diet because of poor dentition not because of swallowing difficulties. Dysphonia/cognition: He is done well. His voice volume has significantly improved. He initially presented with a very soft whisper type of voice. At this point he can have normal functioning voice sometimes needing prompting. Comprehension and expression are both supervision. Problem solving and memory are mod to max assist however. Left lower extremity nonocclusive DVT: Doppler studies done prior to coming to rehab suggested thiswas chronic. No further intervention was required. DVT prophylaxis: He continued on Lovenox 40 mg daily until his mobility improved. Hepatitis C: Patient was noted to have elevated transaminitis which was also occurring prior to coming here. Hepatitis panel was done that was positive for hepatitis C. His hepatitis C PCR showed a significant viral load at [phone]. In talk with the patient he states he was diagnosed a couple months ago with hepatitis C. Gastroenterology saw the patient and actually was able to learn he was probably diagnosed as far back as 2010. Does not appear the patient had any follow-up. He deftly should have follow-up with primary care or gastroenterology in his area to look at definitive treatment. Of note his hepatitis A antibody was also positive but the hepatitis A IgM was negative. Smoking: Patient was advised against returning to smoking. He decided to use the nicotine patch here at 21 mg daily. He should continue on that at home and taper down. He should follow-up with primary care. Rehab Course: Patient is independent to modified independent with his mobility and his ADLs. Vital Signs at Discharge: BP: 109/68, Heart Rate: 94, Temp: 36.6 ??C (97.8 ??F), Resp: 16, BMI (Calculated): 18.94 Height: 172.7 cm (5' 8) (05/10/20 1408) Weight: 58.8 kg (129 lb 9.6 oz) (05/25/20 0900) Important Studies and Lab Data: Labs: Last 3 wbc, hgb, hct plt Recent Labs 05/11/20 0652 05/09/20 0931 05/08/20 0542 WBC 5.6 7.5 8.4 HGB 13.4* 12.9* 12.6* HCT 40.6 37.8* 37.2* PLATELET 492* 506* 468* Last 3 Lytes Recent Labs 05/17/20 0654 05/11/20 0652 05/09/20 0529 NA 135 134* 136 K 4.3 3.6 4.2 CL 99 100 102 CO2 28 22 21* BUN 15 19 14 CREATININE 0.65* 0.52* 0.53* Component Latest Ref Rng & Units 05/20/2020 05/13/2020 05/12/2020 Total Protein 6.1 - 8.0 gm/dL 7.4 Albumin 3.2 - 5.2 gm/dL 3.5 AST 0 - 39 unit/L 106 (H) ALT 0 - 55 unit/L 146 (H) Alk Phos 40 - 130 unit/L 104 Total Bilirubin 0.2 - 1.3 mg/dL 0.6 Bili, Direct 0.0 - 0.3 mg/dL 0.2 Iron 45 - 160 mcg/dL 101 TIBC 250 - 450 mcg/dL 203 (L) Iron Saturation 20 - 50 % 50 25-OH Vit D Total 21 - 100 ng/mL 25-OH Vit D Interp HepB Surface Ab Quant IU/L HepB Surface Ab HCV Viral Load IU/mL 769,842 HCV Viral Load Result: 126378 IU/mL . . . Prealbumin 20 - 40 mg/dL Hepatitis A IgM Negative HepB Surface Ag Negative Hep B Core Ab Negative Hepatitis C Ab Negative Hepatitis A Ab Negative Ammonia 16 - 60 mcmol/L 14 (L) Ferritin 30 - 400 ng/mL 637 (H) Component Latest Ref Rng & Units 05/11/2020 Total Protein 6.1 - 8.0 gm/dL Albumin 3.2 - 5.2 gm/dL AST 0 - 39 unit/L ALT 0 - 55 unit/L Alk Phos 40 - 130 unit/L Total Bilirubin 0.2 - 1.3 mg/dL Bili, Direct 0.0 - 0.3 mg/dL Iron 45 - 160 mcg/dL TIBC 250 - 450 mcg/dL Iron Saturation 20 - 50 % 25-OH Vit D Total 21 - 100 ng/mL 24 25-OH Vit D Interp Insufficient HepB Surface Ab Quant IU/L <3.5 HepB Surface Ab Negative HCV Viral Load IU/mL HCV Viral Load Prealbumin 20 - 40 mg/dL 17 (L) Hepatitis A IgM Negative Negative HepB Surface Ag Negative Negative Hep B Core Ab Negative Negative Hepatitis C Ab Negative Positive (A) Hepatitis A Ab Negative Positive (A) Ammonia 16 - 60 mcmol/L Ferritin 30 - 400 ng/mL Studies: US Abdomen Complete IMPRESSION Limited study due to patient inability to perform breath holds and lie decubitus. Limitations as stated above. No acute findings appreciated. Mild atherosclerotic disease of the aorta. Common bile duct is not identified but there is no abnormal ductal dilatation. No gallstones. ?? Thank you for letting us participate in the care of this patient. For questions regarding this report, please contact the number below. ?? Electronically signed by: KEVIN MONTALVO, [facility] ([phone]), at 05/11/2020 2:50 PM ?? Kevin Montalvo, Staff Physician Electronically Signed Final Report 05/11/2020 02:57 pm EXAMINATION: XR FLUORO MODIFIED BARIUM SWALLOW ?? CLINICAL HISTORY: dysphagia ? TECHNIQUE: The examination was performed in conjunction with speech pathology. Varying consistencies of barium were administered under lateral fluoroscopic observation. ?? Fluoro time: 2 minutes ?? COMPARISON: None ?? FINDINGS: Patient has a delayed oral phase. There is spillage and delayed swallowing present but no aspiration or significant penetration with thin or soft content. ?? IMPRESSION No aspiration or penetration. Delayed swallowing and pooling in the vallecula. Signed report ?? Thank you for letting us participate in the care of this patient. For questions regarding this report, please contact the number below. Electronically signed by: HUSSEIN TYLER, [facility] ([phone]), at 05/17/2020 10:55 AM [facility] Speech Language Pathology Modified Barium Swallowing Evaluation ASSESSMENT SUMMARY: ? This patient presented with moderately oral and mild pharyngeal dysphagia. The oral phase was characterized by disorganized mastication, moderate oral residue, and delayed swallow initiation up to 20 seconds. The pharyngeal phase was typified by trace-minimal amounts of residue within the valleculae due to partial tongue base retraction and pharyngeal stripping wave. There was no penetration or aspiration seen at the time ofthis evaluation. Recommend a level two diet with thin liquids; patient would benefit from small bites/sips, extra sauces/gravies, cues to clear oral residue, and alternating solids/liquids. ?? RECOMMENDATIONS Diet recommendations Consistencies: Solids: mechanical soft diet Liquids: thin Medications: whole in pureed Compensatory strategies: small, single bites/sips, check for pocketing, alternate solids/liquids, extra sauces/gravies. ?? Patient and RN were consulted regarding these assessment results, implications, and recommendations. ? Lisa Buenrostro M.S., CCC-HOSPICE CARE SALES CONSULTANT, MBSImP Certified Cinician Speech Language Pathologist Pending Studies and Lab Data: Discharge Conditions/Prognosis: Good Discharge to: Home with home health services. Only follow-up with primary care. Updated Allergies/ADRs: No Known Allergies Immunizations Given this Hospitalization: There is no immunization history on file for this patient. Discharge Medications: Your Medications New Medications Dose Details nicotine 21 mg/24 hr Pt24 Commonly known as: NICODERM CQ Change 1 patch on the skin daily. Start taking on: June 01, 2020 1 patch Quantity: 28 patch Refills: 0 Continued medications with new dosing Dose Details amLODIPine 5 mg Tab Commonly known as: Norvasc Take 1 tablet by mouth daily. Start taking on: June 01, 2020 What changed: ?? medication strength ?? how much to take 5 mg Quantity: 30 tablet Refills: 0 Continued medications, unchanged Dose Details famotidine 40 mg Tab Commonly known as: Pepcid Take 1 tablet by mouth daily. 40 mg Quantity: 30 tablet Refills: 0 folic acid 1 mg Tab Commonly known as: Folvite Take 1 tablet by mouth daily. 1,000 mcg Quantity: 30 tablet Refills: 0 multivitamin with minerals 9 mg iron-400 mcg Tab Commonly known as: THERA-M Take 1 tablet by mouth daily. 1 tablet Refills: 0 thiamine Commonly known as: Vitamin B1 Take 1 tablet by mouth daily. 100 mg Quantity: 30 tablet Refills: 0 STOPPED Medications acetaminophen 500 mg Tab Commonly known as: Tylenol enoxaparin 40 mg/0.4 mL Syrg Commonly known as: LOVENOX lisinopriL 40 mg Tab Commonly known as: Prinivil;Zestril modafiniL 100 mg Tab Commonly known as: Provigil propranoloL 40 mg Tab Commonly known as: Inderal Silvadene 1 % Crea Generic drug: silver sulfADIAZINE TylenoL 325 mg Tab Generic drug: acetaminophen Vicodin 5-500 mg Tab Generic drug: HYDROcodone-acetaminophen Smoking Status at Discharge: Social History Tobacco Use Smoking Status Current Every Day Smoker Smokeless Tobacco Never Used Instructions Given to Patient at Discharge: There are no outpatient Patient Instructions on file for this admission. General Instructions Nursing Remember to take your medications as prescribed by the doctor Crush meds in applesauce or pudding. Remember to come for booked appointments Check your blood pressure twice a day before taking your blood pressure medications. PT: Independent with bed mobility Independent with transfers Independent walking short distances (indoors) without walker, if going longer distances than would recommend using walker On the stairs use the railings Future Appointments and Orders Future Orders Complete By Expires Referral to Home Health - at DISCHARGE [[id number] CPT(R)] As directed Process Instructions: Scheduling Instructions: Comments: DOCUMENTATION FOR VNA SERVICES (INCLUDING THOSE PATIENTS WITH MEDICARE COVERAGE REQUIRING HOME VNA SERVICES AND/OR HOSPICE SERVICES) PATIENT'S LOCATION: Yaritza Burnett . [address] [place] [address] [address] [facility] [phone] (home) Cell: No relevant phone numbers on file. Charger Operator's Name: pt's daughter In discussion with the attending physician, it is certified that this patient is under their care and that they, or a Nurse Practitioner,Clinical Nurse specialist or Physician Lawn And Garden Technician who is working directly with them, had a face to face encounter that meets the physician face to face encounter requirements with this patient on 05/31/2020 The encounter with the patient was in whole, or in part, for the following medical condition, whichis the primary reason for home health care services: Monitoring of medical condition post hospilization; med management; strengthening In discussion with the provider, it is certified that, based on their findings, the following services are medically necessary for home health services. To provide the following care/treatments with the clinical findings supporting the need for services as follows: HOME CARE ORDERS: RN ORDERS:Assess wound or incision, vital signs, cardiopulmonary status, nutrition, hydration, elimination, meds effectiveness and management; reinforce education re health issues PT ORDERS: Continue rehab for endurance, gait stability and strength with mobility and transfers. Home safety evaluation. Home exercise program if appropriate. OT: assess and continue rehab for managing ADL's. Speech HOME HEALTH CARE AGENCY: [facility] Start of care: 24-48 hours after d/c. FOR MEDICARE ONLY: (please delete this section if not Medicare) In discussion with the attending physician, it is certified that the clinical findings support thatthis patient is homebound because absences from home require considerable and taxing effort due to:Decreased strength and endurance. Please note that any additional orders needs or changes will need to be obtained from this patient's PCP: [address] / [facility] [phone] All A agencies which cover the area of patient's residence have been reviewed, either verbally glory writing, and patient/family have chosen the home health care agency noted Questions: Agency name and contact information: [facility] Patient location post discharge: Home What services are requested: Registered Nurse Physical Therapy Occupational Therapy Speech Therapy Start date: Responsible MD post discharge contact info: Andrea Coker APRN [id number] / [facility] [phone] Walker standard [EQ135 Custom] As directed Process Instructions: Scheduling Instructions: Comments: DX; gait insatiability; weakness Dispense; two wheeled walker Height; 5'8 Weight; 120lb Questions: Vendor Name/Contact information: [facility] Discharge References/Attachments Hypertension ([place]) Click refresh button immediately prior to signing DCS to ensure all lazaro are updated. PENELOPE MELENDEZ MD 05/31/2020 11:22 AM documented in this encounter Discharge Instructions * Discharge Instructions* Jessica Garcia RN - 05/31/2020 1:14 PM EDT Nursing Remember to take your medications as prescribed by the doctor Crush meds in applesauce or pudding. Remember to come for booked appointments Check your blood pressure twice a day before taking your blood pressure medications. Modified food consistency pureed food and thin liquids. PT: Independent with bed mobility Independent with transfers Independent walking short distances (indoors) without walker, if going longer distances than would recommend using walker On the stairs use the railings OT: Independent with ADL's Supervision for car transfers. * Attachments The following attachments cannot be sent through Care Everywhere. * Hypertension ([place]) documented in this encounter Medications at Time of Discharge Medication Sig Dispensed Refills Start Date End Date nicotine (NICODERM CQ) 21 mg/24 hr Patch 24 hr Change 1 patch on the skin daily. 28 patch 06/01/2020 famotidine (Pepcid) 40 mg Tablet Take 1 tablet by mouth daily. 30 tablet 05/31/2020 folic acid (Folvite) 1 mg Tablet Take 1 tablet by mouth daily. 30 tablet 05/31/2020 thiamine (Vitamin B1) Take 1 tablet by mouth daily. 30 tablet 05/31/2020 multivitamin with minerals (THERA-M) 9 mg iron-400 mcg Tablet Take 1 tablet by mouth daily. 05/31/2020 amLODIPine (Norvasc) 5 mg Tablet Take 1 tablet by mouth daily. 30 tablet 06/01/2020 nicotine (NICODERM CQ) 21 mg/24 hr Patch 24 hr Change 1 patch on the skin daily. 28 patch 06/01/2020 06/01/2020 documented as of this encounter Progress Notes * Jessica Garcia RN - 05/31/2020 3:40 PM EDT Reviewed discharge instructions with pt. and caregiver/daughter. No issues or concerns noted. Pt. is medically stable and able to discharge to home with services. Escorted to vehicle via wheelchair by staff. * Hayley Easton, RN - 05/31/2020 1:31 PM EDT Weekly follow up for wound care and skin assessment. Patients skin is warm, dry and intact per staff electronic warfare officer. When admitted, patient's Bismark score was low, now is 19, which gives him no risk for pressureinjury. Plan of care for patient to discharge home today with home health care services. * Penelope Melendez MD - 05/31/2020 11:06 AM EDT Subjective: Yaritza Burnett Sr. is a 60 y.o. male admitted to inpatient rehabilitation for left hemiparesis (nondominant) secondary to stroke. Met with patient in his room. He is ready to go home today. No new questions or complaints. The patient's medical records have been reviewed. Review of Systems Pertinent items are noted in HPI. Objective: Patient Vitals for the past 24 hrs: BP Temp Temp src Resp SpO2 05/31/20 1057 109/68 -- -- -- -- 05/31/20 0915 109/71 -- -- -- -- 05/31/20 0913 94/57 36.6 ??C (97.8 ??F) Oral 16 96 % 05/31/20 0611 112/67 37.5 ??C (99.5 ??F) Temporal -- 98 % 05/30/20 1542 123/75 36.7 ??C (98.1 ??F) Oral 16 98 % Labs Lab Results Component Value Date CREATININE 0.65 (L) 05/17/2020 BUN 15 05/17/2020 NA 135 05/17/2020 K 4.3 05/17/2020 CL 99 05/17/2020 CO2 28 05/17/2020 Lab Results Component Value Date WBC 5.6 05/11/2020 HGB 13.4 (L) 05/11/2020 MCV 100.5 (H) 05/11/2020 Lab Results Component Value Date PTT 27 04/21/2020 Lab Results Component Value Date INR 1.1 04/21/2020 INR 1.2 04/20/2020 Assessment/Plan: Hemiparesis of left nondominant side due to cerebrovascular disease [I67.9, G81.94] Patient is doing well. We will plan to discharge him home today. He will continue with home health services. Only follow-up with primary care. 2. ??Hypertension:??Rehab nursing will do vitals every shift and will adjust medication as appropriate. -Blood pressure looks controlled. -Blood pressure has been low. ??His oral intake has been low. ??We will check a BMP to assess hydration. -His blood pressure meds have been adjusted secondary to hypotension. ??Currently lisinopril is 10 mg and amlodipine is 5 mg. ??Blood pressure control looks okay -Blood pressures have actually been hypotensive in the mornings. ??His blood pressure meds amlodipine and lisinopril have been held the last 2 days for systolic blood pressure less than 100. ??Duringthe rest the day his systolic blood pressure has been generally less than 110 and certainly less than 115. ??Will discontinue amlodipine. ??Will discontinue lisinopril as well and watch him off of blood pressure medications for now. -Systolic blood pressure has been less than 130 off of medications. -Blood pressures now are rising and we will restart the amlodipine at 10 mg. -Today his blood pressures again were on the soft side and hypotensive. Initially amlodipine was held. We will decrease his dose to 5 mg. ?? 3.?Dysphagia:??Speech therapy??will assess swallow function. Consider MBS. -will order MBS -Oral intake has been poor. ??We will recheck a BMP to assess hydration. ??Still waiting on MBS. -Did well on the modified barium swallow. ??Is on mechanical soft diet and thin liquids -Patient is on a pur??ed diet by his choice because of his poor dentition. ??He is on thin liquids. ?? 4. ??Dysphonia:??Patient speech seem to be appropriate when you could hear or understand it. ??He has a very soft whisper voice. ??Speech??therapy will assess his speech-language and cognitive functioning. -Comprehension is??supervision. ??Expression is??supervision. ??Problem solving memory are mod/max assistance. ?? 5. 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 ??No further intervention. ?? 6. ??Bilateral upper extremity superficial thrombosis and left nonocclusive subclavian DVT:??Monitor. ??No further intervention. ?? 7. ??DVT prophylaxis:??Continue Lovenox 40 mg daily. -Doing well will discontinue Lovenox. ?? 8. ??Bowel and bladder:??Rehab nursing will do postvoid residuals and clean intermittent catheterization as needed. ??He will be on bowel medication. ?? 9. ??Transaminitis:??Patient's LFTs have been elevated since admission to the hospital 04/20/2020. ??At that time his AST was 107 and his ALT was 105. ??I asked patient if he had a history of any liver problems and he said he thought so. ??When I asked him if he had a history of hepatitis he said yes. ??Not clear about the accuracy of the answers. ??Will check a hepatitis screen. ??We will check an abdominal ultrasound ?? 10. ??Hepatitis C:??Hepatitis panel is pending. ??We will add hepatitis C PCR to assess viral load -Hepatitis panel was positive for hepatitis C. ??Was also positive for hepatitis a but negative forhepatitis A IgM. ??Hepatitis C PCR still pending. ??Will get GI input. -Viral load is greatly elevated. ??Appreciate gastroenterology input. ??Needs follow-up as an outpatient to consider treatment. ?? 11. ??Hemochromatosis:??GI had recommend checking iron studies and ferritin. ??The ferritin level was elevated at 637. ??Will discuss with GI tomorrow. -I discussed with Dr. Quesada of gastroenterology who felt that the patient's current iron studies did not meet criteria for hemochromatosis. ??He recommended rechecking iron studies in several weeks. ?? 12. ??Smoking:??Patient would like to retry the nicotine patch and that has been ordered at 21 mg. Assessment and plan discussed and agreed with the following team members: . Estimated date of Discharge: Today 05/31/2020 Time spent on counseling/coordination of care: Total time spent with patient: PENELOPE MELENDEZ MD 05/31/2020 * Rachele Herrera - 05/31/2020 10:53 AM EDT Patient Name: Yaritza Burnett Sr. Patient Age: 60 y.o. Birthdate: 1960 Admit date: 05/10/2020 Attending Physician: Penelope Melendez MD Pt will d/c home with RN/PT/OT/Speech services through [facility]. Pt's daughter will be here at 2:00pm to pick him up at d/c. She will bring him clothes and shoes. Provided pt with the home healthcare agencies phone number. Provided pt with handicap parking placard form and explained the process of getting the placard. Pt will go home with a walker through [facility]. Call placed to [facility] to confirm they received orders and are all set to see the pt. They plan to admit the pt tomorrow. I provided them with the pt's updated phone number and let them know that the pt said that they could call his daughter if they cannot get in touch with him. * Sharri Vale, AILEEN - 05/30/2020 2:01 PM EDT Nutrition Follow-Up Current Diet: Regular diet Level 1 Pureed; To be delivered by nursing Subjective: Pt eating well 100%, per EMR. Per intake history pt eating a wide variety of supplements and pureedfoods: B- [place] smoothie with unjury, boost pudding, 2 pureed waffles, cranberry juice, coffee and peaches. L- Ensure enlive, magic cup, boost pudding, pureed meatloaf, 4 gravy, mashed potatoes, broccoli orellana, cranberry juice, rogelio alem, chocolate ice cream. Pt has gained 9 lbs since hospitalization. Anthropometrics Recent Weights: Patient Vitals for the past 168 hrs: Weight 05/25/20 0900 58.8 kg (129 lb 9.6 oz) Intake/Output Summary (Last 24 hours) at 05/30/2020 1402 Last data filed at 05/29/2020 1700 Gross per 24 hour Intake 240 ml Output -- Net 240 ml Labs: No results for input(s): GLUCOSE in the last 168 hours. Lab Results Component Value Date NA 135 05/17/2020 K 4.3 05/17/2020 CL 99 05/17/2020 CO2 28 05/17/2020 BUN 15 05/17/2020 CREATININE 0.65 (L) 05/17/2020 GLUCOSE 101 05/17/2020 CALCIUM 9.5 05/17/2020 ESTGFR 105 05/17/2020 ?? Intervention ?? Continue regular diet as prescribed, pt upgraded back to level 1 puree diet. ?? Continue high protein, calorie snacks at meal times and at HS ?? Monitoring and Evaluation ?? Energy intake ?? Weights ?? Re-Evaluation ?? Pt set to discharge tomorrow. ?? Sharri Jasso. NOE Vale, LD Inpatient Clinical Dietitian Ext. [phone] or Vocera * Penelope Melendez MD - 05/30/2020 12:26 PM EDT Subjective: Yaritza Burnett . is a 60 y.o. male admitted to inpatient rehabilitation for left hemiparesis (nondominant) secondary to stroke. Met with patient in the therapy gym. She is doing well. The patient's medical records have been reviewed. Review of Systems Pertinent items are noted in HPI. Objective: Patient Vitals for the past 24 hrs: BP Temp Temp src Resp SpO2 05/30/20 0833 138/77 36.6 ??C (97.8 ??F) Oral 20 99 % 05/30/20 0021 146/77 36.7 ??C (98.1 ??F) Temporal 17 98 % 05/29/20 1550 147/64 36.4 ??C (97.6 ??F) Oral 16 98 % Labs Lab Results Component Value Date CREATININE 0.65 (L) 05/17/2020 BUN 15 05/17/2020 NA 135 05/17/2020 K 4.3 05/17/2020 CL 99 05/17/2020 CO2 28 05/17/2020 Lab Results Component Value Date WBC 5.6 05/11/2020 HGB 13.4 (L) 05/11/2020 MCV 100.5 (H) 05/11/2020 Lab Results Component Value Date PTT 27 04/21/2020 Lab Results Component Value Date INR 1.1 04/21/2020 INR 1.2 04/20/2020 Assessment/Plan: Hemiparesis of left nondominant side due to cerebrovascular disease [I67.9, G81.94] Patient is doing well. He is doing a trial of independent in his room. Plan is for home tomorrow. 2. ??Hypertension:??Rehab nursing will do vitals every shift and will adjust medication as appropriate. -Blood pressure looks controlled. -Blood pressure has been low. ??His oral intake has been low. ??We will check a BMP to assess hydration. -His blood pressure meds have been adjusted secondary to hypotension. ??Currently lisinopril is 10 mg and amlodipine is 5 mg. ??Blood pressure control looks okay -Blood pressures have actually been hypotensive in the mornings. ??His blood pressure meds amlodipine and lisinopril have been held the last 2 days for systolic blood pressure less than 100. ??Duringthe rest the day his systolic blood pressure has been generally less than 110 and certainly less than 115. ??Will discontinue amlodipine. ??Will discontinue lisinopril as well and watch him off of blood pressure medications for now. -Systolic blood pressure has been less than 130 off of medications. -Blood pressures now are rising and we will restart the amlodipine at 10 mg. ?? 3.?Dysphagia:??Speech therapy??will assess swallow function. Consider MBS. -will order MBS -Oral intake has been poor. ??We will recheck a BMP to assess hydration. ??Still waiting on MBS. -Did well on the modified barium swallow. ??Is on mechanical soft diet and thin liquids -Patient is on a pur??ed diet by his choice because of his poor dentition. He is on thin liquids. ?? 4. ??Dysphonia:??Patient speech seem to be appropriate when you could hear or understand it. ??He has a very soft whisper voice. ??Speech??therapy will assess his speech-language and cognitive functioning. -Comprehension is??supervision. ??Expression is??supervision. ??Problem solving memory are mod/max assistance. ?? 5. 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 ??No further intervention. ?? 6. ??Bilateral upper extremity superficial thrombosis and left nonocclusive subclavian DVT:??Monitor. ??No further intervention. ?? 7. ??DVT prophylaxis:??Continue Lovenox 40 mg daily. -Doing well will discontinue Lovenox. ?? 8. ??Bowel and bladder:??Rehab nursing will do postvoid residuals and clean intermittent catheterization as needed. ??He will be on bowel medication. ?? 9. ??Transaminitis:??Patient's LFTs have been elevated since admission to the hospital 04/20/2020. ??At that time his AST was 107 and his ALT was 105. ??I asked patient if he had a history of any liver problems and he said he thought so. ??When I asked him if he had a history of hepatitis he said yes. ??Not clear about the accuracy of the answers. ??Will check a hepatitis screen. ??We will check an abdominal ultrasound ?? 10. ??Hepatitis C:??Hepatitis panel is pending. ??We will add hepatitis C PCR to assess viral load -Hepatitis panel was positive for hepatitis C. ??Was also positive for hepatitis a but negative forhepatitis A IgM. ??Hepatitis C PCR still pending. ??Will get GI input. -Viral load is greatly elevated. ??Appreciate gastroenterology input. ??Needs follow-up as an outpatient to consider treatment. ?? 11. ??Hemochromatosis:??GI had recommend checking iron studies and ferritin. ??The ferritin level was elevated at 637. ??Will discuss with GI tomorrow. -I discussed with Dr. Quesada of gastroenterology who felt that the patient's current iron studies did not meet criteria for hemochromatosis. He recommended rechecking iron studies in several weeks. ?? 12. ??Smoking:??Patient would like to retry the nicotine patch and that has been ordered at 21 mg. Assessment and plan discussed and agreed with the following team members: . Estimated date of Discharge: 05/31/2020 Time spent on counseling/coordination of care: 15 Minutes Total time spent with patient: 15 Minutes PENELOPE MELENDEZ MD 05/30/2020 * Rachele Herrera - 05/30/2020 11:30 AM EDT Patient Name: Yaritza Burnett Sr. Patient Age: 60 y.o. Birthdate: 1960 Admit date: 05/10/2020 Attending Physician: Penelope Melendez MD Spoke with pt about the home health care agencies in his area. He said that he would like to ask his family about the different agencies. Pt's daughter called and we reviewed the d/c plan. She explained that their mother uses [facility] and they like that agency. Pt would like to use that agency. She explained that she is now picking the pt up at d/c and they plan to be here for 2:00pm. * Penelope Melendez MD - 05/29/2020 1:09 PM EDT Subjective: Yaritza Burnett Sr. is a 60 y.o. male admitted to inpatient rehabilitation for left hemiparesis (nondominant) secondary to stroke. Met with patient in his room. Bedside team conference occurred. Patient's daughter and her boyfriend participated via phone. The patient's medical records have been reviewed. Review of Systems Pertinent items are noted in HPI. Objective: Patient Vitals for the past 24 hrs: BP Temp Temp src Pulse Resp SpO2 05/29/20 0939 122/72 37.1 ??C (98.7 ??F) Temporal -- 16 97 % 05/28/20 2330 133/78 36.7 ??C (98.1 ??F) Temporal -- 15 97 % 05/28/20 1600 -- -- -- 94 -- -- 05/28/20 1525 128/72 36.8 ??C (98.3 ??F) Oral -- 16 99 % Labs Lab Results Component Value Date CREATININE 0.65 (L) 05/17/2020 BUN 15 05/17/2020 NA 135 05/17/2020 K 4.3 05/17/2020 CL 99 05/17/2020 CO2 28 05/17/2020 Lab Results Component Value Date WBC 5.6 05/11/2020 HGB 13.4 (L) 05/11/2020 MCV 100.5 (H) 05/11/2020 Lab Results Component Value Date PTT 27 04/21/2020 Lab Results Component Value Date INR 1.1 04/21/2020 INR 1.2 04/20/2020 Assessment/Plan: Hemiparesis of left nondominant side due to cerebrovascular disease [I67.9, G81.94] Toileting is supervision. He is continent of bowel and bladder. He is supervision for eating. Grooming is independent. He is set up for upper body bathing and lower body bathing. He is independent upper body dressing. He is independent lower body dressing. He is independent with footwear. Bed ability is independent. Transfers have been supervision to independent. He is ambulating modified independent with a rolling walker. He is ambulating without assistive device and supervision. He is supervision on a flight of stairs. Patient doing extremely well and plan is to move up his discharge from to 05/31/2020. 2. ??Hypertension:??Rehab nursing will do vitals every shift and will adjust medication as appropriate. -Blood pressure looks controlled. -Blood pressure has been low. ??His oral intake has been low. ??We will check a BMP to assess hydration. -His blood pressure meds have been adjusted secondary to hypotension. ??Currently lisinopril is 10 mg and amlodipine is 5 mg. ??Blood pressure control looks okay -Blood pressures have actually been hypotensive in the mornings. ??His blood pressure meds amlodipine and lisinopril have been held the last 2 days for systolic blood pressure less than 100. ??Duringthe rest the day his systolic blood pressure has been generally less than 110 and certainly less than 115. ??Will discontinue amlodipine. ??Will discontinue lisinopril as well and watch him off of blood pressure medications for now. -Systolic blood pressure has been less than 130 off of medications. ?? 3.?Dysphagia:??Speech therapy??will assess swallow function. Consider MBS. -will order MBS -Oral intake has been poor. ??We will recheck a BMP to assess hydration. ??Still waiting on MBS. -Did well on the modified barium swallow. ??Is on mechanical soft diet and thin liquids -Patient is on a pur??ed diet by his choice because of his poor dentition. He is on thin liquids. ?? 4. ??Dysphonia:??Patient speech seem to be appropriate when you could hear or understand it. ??He has a very soft whisper voice. ??Speech??therapy will assess his speech-language and cognitive functioning. -Comprehension is??supervision. ??Expression is??supervision. ??Problem solving memory are mod/max assistance. ?? 5. 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 ??No further intervention. ?? 6. ??Bilateral upper extremity superficial thrombosis and left nonocclusive subclavian DVT:??Monitor. ??No further intervention. ?? 7. ??DVT prophylaxis:??Continue Lovenox 40 mg daily. -Doing well will discontinue Lovenox. ?? 8. ??Bowel and bladder:??Rehab nursing will do postvoid residuals and clean intermittent catheterization as needed. ??He will be on bowel medication. ?? 9. ??Transaminitis:??Patient's LFTs have been elevated since admission to the hospital 04/20/2020. ??At that time his AST was 107 and his ALT was 105. ??I asked patient if he had a history of any liver problems and he said he thought so. ??When I asked him if he had a history of hepatitis he said yes. ??Not clear about the accuracy of the answers. ??Will check a hepatitis screen. ??We will check an abdominal ultrasound ?? 10. ??Hepatitis C:??Hepatitis panel is pending. ??We will add hepatitis C PCR to assess viral load -Hepatitis panel was positive for hepatitis C. ??Was also positive for hepatitis a but negative forhepatitis A IgM. ??Hepatitis C PCR still pending. ??Will get GI input. -Viral load is greatly elevated. ??Appreciate gastroenterology input. ??Needs follow-up as an outpatient to consider treatment. ?? 11. ??Hemochromatosis:??GI had recommend checking iron studies and ferritin. ??The ferritin level was elevated at 637. ??Will discuss with GI tomorrow. -I discussed with Dr. Quesada of gastroenterology who felt that the patient's current iron studies did not meet criteria for hemochromatosis. He recommended rechecking iron studies in several weeks. ?? 12. ??Smoking:??Patient would like to retry the nicotine patch and that has been ordered at 21 mg. Assessment and plan discussed and agreed with the following team members: . Estimated date of Discharge: 05/31/2020 Time spent on counseling/coordination of care: 15 Minutes Total time spent with patient: 15 Minutes PENELOPE MELENDEZ MD 05/29/2020 * Rachele Herrera - 05/29/2020 12:09 PM EDT Patient Name: Yaritza Burnett Sr. Patient Age: 60 y.o. Birthdate: 1960 Admit date: 05/10/2020 Attending Physician: Penelope Melendez MD Team meeting held with pt, pt's daughter by phone and [facility] staff. Pt's d/c date was changed to this Thursday 05/31. The pt will go home with RN/PT/OT/Speech services. The pt does not have a local PCP but would like one set up through [facility]. Family will pick him up at 2:00pm on Wednesday. Call placed to [facility] to order pt a walker. Call placed to [facility] to see which providers are accepting new pt's. The pt expressed that he was hoping that Andrea Evans DNP, FNP-C was accepting new pt's. [facility] explained that the pt is already set up with MERRILL Velasquez FNP-C As a PCP. I set up follow up appointment for 06/17/20 at 10:30am. D/c summarywill need to be faxed to this clinic. * Penelope Melendez MD - 05/28/2020 4:00 PM EDT Subjective: Yaritza Burnett Sr. is a 60 y.o. male admitted to inpatient rehabilitation for left hemiparesis (nondominant) secondary to stroke. Met with patient in his room. He is doing well. His voice is much stronger. No particular complaints today. The patient's medical records have been reviewed. Review of Systems Pertinent items are noted in HPI. Objective: Patient Vitals for the past 24 hrs: BP Temp Temp src Pulse Resp SpO2 05/28/20 1525 128/72 36.8 ??C (98.3 ??F) Oral -- 16 99 % 05/28/20 0950 110/72 36.6 ??C (97.9 ??F) Temporal -- 15 99 % 05/28/20 0243 123/80 36.7 ??C (98 ??F) Oral -- 16 100 % 05/27/20 1615 -- -- -- 98 -- -- Labs Lab Results Component Value Date CREATININE 0.65 (L) 05/17/2020 BUN 15 05/17/2020 NA 135 05/17/2020 K 4.3 05/17/2020 CL 99 05/17/2020 CO2 28 05/17/2020 Lab Results Component Value Date WBC 5.6 05/11/2020 HGB 13.4 (L) 05/11/2020 MCV 100.5 (H) 05/11/2020 Lab Results Component Value Date PTT 27 04/21/2020 Lab Results Component Value Date INR 1.1 04/21/2020 INR 1.2 04/20/2020 Assessment/Plan: Hemiparesis of left nondominant side due to cerebrovascular disease [I67.9, G81.94] Progressing well. Team conference tomorrow. Question of discharge sooner than initial assessment. Will discuss at team. 2. ??Hypertension:??Rehab nursing will do vitals every shift and will adjust medication as appropriate. -Blood pressure looks controlled. -Blood pressure has been low. ??His oral intake has been low. ??We will check a BMP to assess hydration. -His blood pressure meds have been adjusted secondary to hypotension. ??Currently lisinopril is 10 mg and amlodipine is 5 mg. ??Blood pressure control looks okay -Blood pressures have actually been hypotensive in the mornings. ??His blood pressure meds amlodipine and lisinopril have been held the last 2 days for systolic blood pressure less than 100. ??Duringthe rest the day his systolic blood pressure has been generally less than 110 and certainly less than 115. ??Will discontinue amlodipine. ??Will discontinue lisinopril as well and watch him off of blood pressure medications for now. ?? 3.?Dysphagia:??Speech therapy??will assess swallow function. Consider MBS. -will order MBS -Oral intake has been poor. ??We will recheck a BMP to assess hydration. ??Still waiting on MBS. -Did well on the modified barium swallow. ??Is on mechanical soft diet and thin liquids ?? 4. ??Dysphonia:??Patient speech seem to be appropriate when you could hear or understand it. ??He has a very soft whisper voice. ??Speech??therapy will assess his speech-language and cognitive functioning. -Comprehension is??supervision. ??Expression is??mod??assistance. ??Problem solving memory are max assistance. ?? 5. 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 ??No further intervention. ?? 6. ??Bilateral upper extremity superficial thrombosis and left nonocclusive subclavian DVT:??Monitor. ??No further intervention. ?? 7. ??DVT prophylaxis:??Continue Lovenox 40 mg daily. ?? 8. ??Bowel and bladder:??Rehab nursing will do postvoid residuals and clean intermittent catheterization as needed. ??He will be on bowel medication. ?? 9. ??Transaminitis:??Patient's LFTs have been elevated since admission to the hospital 04/20/2020. ??At that time his AST was 107 and his ALT was 105. ??I asked patient if he had a history of any liver problems and he said he thought so. ??When I asked him if he had a history of hepatitis he said yes. ??Not clear about the accuracy of the answers. ??Will check a hepatitis screen. ??We will check an abdominal ultrasound ?? 10. ??Hepatitis C:??Hepatitis panel is pending. ??We will add hepatitis C PCR to assess viral load -Hepatitis panel was positive for hepatitis C. ??Was also positive for hepatitis a but negative forhepatitis A IgM. ??Hepatitis C PCR still pending. ??Will get GI input. -Viral load is greatly elevated. ??Appreciate gastroenterology input. ??Needs follow-up as an outpatient to consider treatment. ?? 11. ??Hemochromatosis:??GI had recommend checking iron studies and ferritin. ??The ferritin level was elevated at 637. ??Will discuss with GI tomorrow. ?? 12. ??Smoking:??Patient would like to retry the nicotine patch and that has been ordered at 21 mg. Assessment and plan discussed and agreed with the following team members: . Estimated date of Discharge: 06/07/2020 Time spent on counseling/coordination of care: 15 Minutes Total time spent with patient: 15 Minutes PENELOPE MELENDEZ MD 05/28/2020 * Penelope Melendez MD - 05/27/2020 4:07 PM EDT Subjective: Yaritza Burnett . is a 60 y.o. male admitted to inpatient rehabilitation for left hemiparesis (nondominant) secondary to stroke. Met with patient in his room. Had observed him in therapy earlier. Heis overall doing well. He states he thinks his daughter has found an apartment for them to transition to. The patient's medical records have been reviewed. Review of Systems Pertinent items are noted in HPI. Objective: Patient Vitals for the past 24 hrs: BP Temp Temp src Resp SpO2 05/27/20 1520 107/64 36.5 ??C (97.7 ??F) Oral 17 100 % 05/27/20 0802 110/77 36.7 ??C (98 ??F) Oral 16 100 % 05/26/20 2232 145/76 36.8 ??C (98.3 ??F) Temporal 16 97 % Labs Lab Results Component Value Date CREATININE 0.65 (L) 05/17/2020 BUN 15 05/17/2020 NA 135 05/17/2020 K 4.3 05/17/2020 CL 99 05/17/2020 CO2 28 05/17/2020 Lab Results Component Value Date WBC 5.6 05/11/2020 HGB 13.4 (L) 05/11/2020 MCV 100.5 (H) 05/11/2020 Lab Results Component Value Date PTT 27 04/21/2020 Lab Results Component Value Date INR 1.1 04/21/2020 INR 1.2 04/20/2020 Assessment/Plan: Hemiparesis of left nondominant side due to cerebrovascular disease [I67.9, G81.94] He is progressing well. I observed him ambulating without an assistive device. He is limited by back pain. His gait was slightly wide-based 2. ??Hypertension:??Rehab nursing will do vitals every shift and will adjust medication as appropriate. -Blood pressure looks controlled. -Blood pressure has been low. ??His oral intake has been low. ??We will check a BMP to assess hydration. -His blood pressure meds have been adjusted secondary to hypotension. ??Currently lisinopril is 10 mg and amlodipine is 5 mg. ??Blood pressure control looks okay -Blood pressures have actually been hypotensive in the mornings. ??His blood pressure meds amlodipine and lisinopril have been held the last 2 days for systolic blood pressure less than 100. ??Duringthe rest the day his systolic blood pressure has been generally less than 110 and certainly less than 115. ??Will discontinue amlodipine. ??Will discontinue lisinopril as well and watch him off of blood pressure medications for now. ?? 3.?Dysphagia:??Speech therapy??will assess swallow function. Consider MBS. -will order MBS -Oral intake has been poor. ??We will recheck a BMP to assess hydration. ??Still waiting on MBS. -Did well on the modified barium swallow. ??Is on mechanical soft diet and thin liquids ?? 4. ??Dysphonia:??Patient speech seem to be appropriate when you could hear or understand it. ??He has a very soft whisper voice. ??Speech??therapy will assess his speech-language and cognitive functioning. -Comprehension is??supervision. ??Expression is??mod??assistance. ??Problem solving memory are max assistance. ?? 5. 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 ??No further intervention. ?? 6. ??Bilateral upper extremity superficial thrombosis and left nonocclusive subclavian DVT:??Monitor. ??No further intervention. ?? 7. ??DVT prophylaxis:??Continue Lovenox 40 mg daily. ?? 8. ??Bowel and bladder:??Rehab nursing will do postvoid residuals and clean intermittent catheterization as needed. ??He will be on bowel medication. ?? 9. ??Transaminitis:??Patient's LFTs have been elevated since admission to the hospital 04/20/2020. ??At that time his AST was 107 and his ALT was 105. ??I asked patient if he had a history of any liver problems and he said he thought so. ??When I asked him if he had a history of hepatitis he said yes. ??Not clear about the accuracy of the answers. ??Will check a hepatitis screen. ??We will check an abdominal ultrasound ?? 10. ??Hepatitis C:??Hepatitis panel is pending. ??We will add hepatitis C PCR to assess viral load -Hepatitis panel was positive for hepatitis C. ??Was also positive for hepatitis a but negative forhepatitis A IgM. ??Hepatitis C PCR still pending. ??Will get GI input. -Viral load is greatly elevated. ??Appreciate gastroenterology input. ??Needs follow-up as an outpatient to consider treatment. ?? 11. ??Hemochromatosis:??GI had recommend checking iron studies and ferritin. ??The ferritin level was elevated at 637. ??Will discuss with GI tomorrow. ?? 12. ??Smoking:??Patient would like to retry the nicotine patch and that has been ordered at 21 mg. Assessment and plan discussed and agreed with the following team members: . Estimated date of Discharge: 06/07/2020 Time spent on counseling/coordination of care: 15 Minutes Total time spent with patient: 15 Minutes PENELOPE MELENDEZ MD 05/27/2020 * Jesse Llamas Jr., MD - 05/25/2020 9:08 AM EDT Subjective: Yaritza Burnett Sr. is a 60 y.o. male admitted to inpatient rehabilitation for CVA with left hemiparesis. Patient has been participating in therapies and making gains. Today's only complaint was he feels things are weird with him being here and discharge plan later this month. Apparently there is some conflict between his daughter and his girlfriend. He tells me that the eventual plan is to discharge home to live with his girlfriend. he had no new physical complaints today on exam. The patient's medical records have been reviewed. Review of Systems Pertinent items are noted in HPI. Objective: Patient Vitals for the past 24 hrs: BP Temp Temp src Resp SpO2 05/24/20 2350 129/78 36.6 ??C (97.9 ??F) Temporal 17 97 % 05/24/20 1532 115/83 36.7 ??C (98 ??F) Oral 16 99 % Cachectic man awake alert no distress Speech: Volume close to normal, usually intelligible Heart: Regular rate and rhythm no murmur no gallop Lungs: Clear without wheeze rales rhonchi Abdomen: Soft nontender Labs Lab Results Component Value Date CREATININE 0.65 (L) 05/17/2020 BUN 15 05/17/2020 NA 135 05/17/2020 K 4.3 05/17/2020 CL 99 05/17/2020 CO2 28 05/17/2020 Lab Results Component Value Date WBC 5.6 05/11/2020 HGB 13.4 (L) 05/11/2020 MCV 100.5 (H) 05/11/2020 Lab Results Component Value Date PTT 27 04/21/2020 Lab Results Component Value Date INR 1.1 04/21/2020 INR 1.2 04/20/2020 Assessment/Plan: Hemiparesis of left nondominant side due to cerebrovascular disease [I67.9, G81.94] Multidisciplinary team meeting held 05/22/2020 ?? Toileting is min to max assistance per RN but contact-guard with OT. ??He is continent and incontinent of bladder. ??He is continent of bowel. ??Eating is set up. ??Grooming is set up. ??Dressing andbathing is set up supervision upper and lower body. ??Bed mobility is min assist to get out and modassist to get into bed. ??Transfers are contact-guard. ??He is ambulating contact-guard with a rolling walker 30 to 70 feet. ??He has not yet done stairs. ??He is supervision with wheelchair skills ?? 2. ??Hypertension:??Rehab nursing will do vitals every shift and will adjust medication as appropriate. Has had blood pressure meds held several times for low readings. ??Currently both amlodipine and lisinopril are on hold. Blood pressure reasonable ?? 3.?Dysphagia:??Speech therapy??will assess swallow function.?Modified barium swallow done today, 04/16/2020. ??Currently on level 2 diet with thin liquids. ?? 4. ??Dysphonia:??Patient speech seem to be appropriate when you could hear or understand it. ??He had a very soft whisper voice. ??Speech??therapy has??assessed??his speech-language and cognitive functioning. Voice is much stronger at this point -Comprehension is moderate assistance. ??Expression is max assistance. ??Problem solving memory aremax assistance. ?? 5. 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 ??No further intervention. ?? 6. ??Bilateral upper extremity superficial thrombosis and left nonocclusive subclavian DVT:??Monitor. ??No further intervention. ?? 7. ??DVT prophylaxis:??Continue Lovenox 40 mg daily. ?? 8. ??Bowel and bladder:??Rehab nursing will do postvoid residuals and clean intermittent catheterization as needed. ??He will be on bowel medication. ?? 9. ??Transaminitis:??Apparently due to hepatitis C? 10. ??Hepatitis C:??Hep C PCR??viral load [phone].?Diagnosis dates back to 2010. ??Seen in consultation by GI 05/18/2020. ??Only recommending treatment if he is able to be abstinent after dischargeand his general health improves.?They??have recommended checking iron and ferritin levels due to question in the past of hemochromatosis. Reviewed elevated ferritin with Dr Quesada-GI, he recommends recheck in 2 months after abstaining from Etoh? 11. ??Severe protein calorie malnutrition:??Dietary following, encourage po ?? 12. Hemochromatosis: Ferritin was moderately elevated at 637. I have reviewed this with Dr. Quesada from gastroenterology. He recommends repeat 2 months after discharge and abstaining from alcohol ? Assessment and plan discussed and agreed with the following team members: nursing. Estimated date of Discharge:06/07/2020 Time spent on counseling/coordination of care: 15 Minutes Total time spent with patient: 30 Minutes JESSE LLAMAS JR, MD 05/25/2020 * Jesse Llamas Jr., MD - 05/24/2020 1:13 PM EDT Subjective: Yaritza Burnett Sr. is a 60 y.o. male admitted to inpatient rehabilitation for CVA with left hemiparesis. Patient has been participating quite actively in therapy and making gains. He has no complaints today on review of systems. No new issues noted by nursing. The patient's medical records have been reviewed. Review of Systems Pertinent items are noted in HPI. Objective: Patient Vitals for the past 24 hrs: BP Temp Temp src Pulse Resp SpO2 05/24/20 0906 110/72 36.8 ??C (98.2 ??F) Oral -- 12 98 % 05/24/20 0304 122/75 36.9 ??C (98.4 ??F) Oral -- 16 98 % 05/23/20 1800 -- -- -- 86 -- -- 05/23/20 1606 105/70 36.6 ??C (97.9 ??F) Oral -- 17 97 % Awake alert no distress Speech: Voice much stronger than previous Psych: Affect appropriate, cheerful Labs Lab Results Component Value Date CREATININE 0.65 (L) 05/17/2020 BUN 15 05/17/2020 NA 135 05/17/2020 K 4.3 05/17/2020 CL 99 05/17/2020 CO2 28 05/17/2020 Lab Results Component Value Date WBC 5.6 05/11/2020 HGB 13.4 (L) 05/11/2020 MCV 100.5 (H) 05/11/2020 Lab Results Component Value Date PTT 27 04/21/2020 Lab Results Component Value Date INR 1.1 04/21/2020 INR 1.2 04/20/2020 Assessment/Plan: Hemiparesis of left nondominant side due to cerebrovascular disease [I67.9, G81.94] Multidisciplinary team meeting held 05/22/2020 Toileting is min to max assistance per RN but contact-guard with OT. He is continent and incontinent of bladder. He is continent of bowel. Eating is set up. Grooming is set up. Dressing and bathing is set up supervision upper and lower body. Bed mobility is min assist to get out and mod assist to get into bed. Transfers are contact-guard. He is ambulating contact-guard with a rolling walker 30 to70 feet. He has not yet done stairs. He is supervision with wheelchair skills 2. ??Hypertension:??Rehab nursing will do vitals every shift and will adjust medication as appropriate. Has had blood pressure meds held several times for low readings. ??Currently both amlodipine and lisinopril are on hold. Blood pressure reasonable 3.?Dysphagia:??Speech therapy??will assess swallow function.?Modified barium swallow done today, 04/16/2020. ??Currently on level 2 diet with thin liquids. ?? 4. ??Dysphonia:??Patient speech seem to be appropriate when you could hear or understand it. ??He has a very soft whisper voice. ??Speech??therapy has??assessed??his speech-language and cognitive functioning. Voice is much stronger at this point -Comprehension is moderate assistance. ??Expression is max assistance. ??Problem solving memory aremax assistance. ?? 5. 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 ??No further intervention. ?? 6. ??Bilateral upper extremity superficial thrombosis and left nonocclusive subclavian DVT:??Monitor. ??No further intervention. ?? 7. ??DVT prophylaxis:??Continue Lovenox 40 mg daily. ?? 8. ??Bowel and bladder:??Rehab nursing will do postvoid residuals and clean intermittent catheterization as needed. ??He will be on bowel medication. ?? 9. ??Transaminitis:??Apparently due to hepatitis C? 10. ??Hepatitis C:??Hep C PCR??viral load [phone].?Diagnosis dates back to 2010. ??Seen in consultation by GI 05/18/2020. ??Only recommending treatment if he is able to be abstinent after dischargeand his general health improves. ??They have recommended checking iron and ferritin levels due to question in the past of hemochromatosis. Reviewed elevated ferritin with Dr Quesada-FRANCISCO, he recommends recheck in 2 months after abstaining from Etoh ?? 11. ??Severe protein calorie malnutrition:??Dietary following, encourage po 12. Hemochromatosis: Ferritin was moderately elevated at 637. I have reviewed this with Dr. Quesada from gastroenterology. He recommends repeat 2 months after discharge and abstaining from alcohol ? Assessment and plan discussed and agreed with the following team members: Nursing, PT. Estimated date of Discharge: 06/07/2020 Time spent on counseling/coordination of care: 15 Minutes Total time spent with patient: 30 Minutes JESSE LLAMAS JR, MD 05/24/2020 * Penelope Melendez MD - 05/23/2020 4:20 PM EDT Subjective: Yaritza Burnett . is a 60 y.o. male admitted to inpatient rehabilitation for left hemiparesis (nondominant) secondary to stroke. Met with patient in his room. Had observed him and therapy earlier. The patient's medical records have been reviewed. Review of Systems Pertinent items are noted in HPI. Objective: Patient Vitals for the past 24 hrs: BP Temp Temp src Resp SpO2 05/23/20 1606 105/70 36.6 ??C (97.9 ??F) Oral 17 97 % 05/23/20 0859 116/77 36.7 ??C (98 ??F) Oral 16 98 % 05/22/20 2347 120/75 36.7 ??C (98.1 ??F) Oral 18 98 % Watched him ambulate with PT. He actually is doing quite well. Slow but good normal gait with a slightly wide base of support. Labs Lab Results Component Value Date CREATININE 0.65 (L) 05/17/2020 BUN 15 05/17/2020 NA 135 05/17/2020 K 4.3 05/17/2020 CL 99 05/17/2020 CO2 28 05/17/2020 Lab Results Component Value Date WBC 5.6 05/11/2020 HGB 13.4 (L) 05/11/2020 MCV 100.5 (H) 05/11/2020 Lab Results Component Value Date PTT 27 04/21/2020 Lab Results Component Value Date INR 1.1 04/21/2020 INR 1.2 04/20/2020 Assessment/Plan: Hemiparesis of left nondominant side due to cerebrovascular disease [I67.9, G81.94] Doing encouragingly well. 2. ??Hypertension:??Rehab nursing will do vitals every shift and will adjust medication as appropriate. -Blood pressure looks controlled. -Blood pressure has been low. ??His oral intake has been low. ??We will check a BMP to assess hydration. -His blood pressure meds have been adjusted secondary to hypotension. ??Currently lisinopril is 10 mg and amlodipine is 5 mg. ??Blood pressure control looks okay -Blood pressures have actually been hypotensive in the mornings. His blood pressure meds amlodipineand lisinopril have been held the last 2 days for systolic blood pressure less than 100. During therest the day his systolic blood pressure has been generally less than 110 and certainly less than 115. Will discontinue amlodipine. Will discontinue lisinopril as well and watch him off of blood pressure medications for now. ?? 3.?Dysphagia:??Speech therapy??will assess swallow function. Consider MBS. -will order MBS -Oral intake has been poor. ??We will recheck a BMP to assess hydration. ??Still waiting on MBS. -Did well on the modified barium swallow. ??Is on mechanical soft diet and thin liquids ?? 4. ??Dysphonia:??Patient speech seem to be appropriate when you could hear or understand it. ??He has a very soft whisper voice. ??Speech??therapy will assess his speech-language and cognitive functioning. -Comprehension is supervision. ??Expression is mod assistance. ??Problem solving memory are max assistance. ?? 5. 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 ??No further intervention. ?? 6. ??Bilateral upper extremity superficial thrombosis and left nonocclusive subclavian DVT:??Monitor. ??No further intervention. ?? 7. ??DVT prophylaxis:??Continue Lovenox 40 mg daily. ?? 8. ??Bowel and bladder:??Rehab nursing will do postvoid residuals and clean intermittent catheterization as needed. ??He will be on bowel medication. ?? 9. ??Transaminitis:??Patient's LFTs have been elevated since admission to the hospital 04/20/2020. ??At that time his AST was 107 and his ALT was 105. ??I asked patient if he had a history of any liver problems and he said he thought so. ??When I asked him if he had a history of hepatitis he said yes. ??Not clear about the accuracy of the answers. ??Will check a hepatitis screen. ??We will check an abdominal ultrasound ?? 10. ??Hepatitis C:??Hepatitis panel is pending. ??We will add hepatitis C PCR to assess viral load -Hepatitis panel was positive for hepatitis C. ??Was also positive for hepatitis a but negative forhepatitis A IgM. ??Hepatitis C PCR still pending. ??Will get GI input. -Viral load is greatly elevated. ??Appreciate gastroenterology input. ??Needs follow-up as an outpatient to consider treatment. ?? 11. ??Hemochromatosis:??GI had recommend checking iron studies and ferritin. ??The ferritin level was elevated at 637. ??Will discuss with GI tomorrow. ?? 12. ??Smoking:??Patient would like to retry the nicotine patch and that has been ordered at 21 mg. Assessment and plan discussed and agreed with the following team members: . Estimated date of Discharge: 06/07/2020 Time spent on counseling/coordination of care: 15 Minutes Total time spent with patient: 15 Minutes PENELOPE MELENDEZ MD 05/23/2020 * Sharri Vale RD - 05/23/2020 3:03 PM EDT Nutrition Follow-Up Current Diet: Regular diet Level 1 Pureed; To be delivered by nursing Subjective: Pt seen in meal group today, reports his appetite is getting better. This can be verified via the EMR with 100% intake over the past few days. Davin is receiving severalhigh protein, high calorie supplements on his trays. Yaritza has gained 4 lbs since our last follow up. Will continue to follow. Anthropometrics Recent Weights: Patient Vitals for the past 168 hrs: Weight 05/21/20 1000 56.3 kg (124 lb 3.2 oz) 05/19/20 1227 54.7 kg (120 lb 8 oz) 05/18/20 0631 54.7 kg (120 lb 8 oz) Intake/Output Summary (Last 24 hours) at 05/23/2020 1503 Last data filed at 05/23/2020 0534 Gross per 24 hour Intake 360 ml Output 450 ml Net -90 ml Labs: Recent Labs 05/17/20 0654 GLUCOSE 101 Lab Results Component Value Date NA 135 05/17/2020 K 4.3 05/17/2020 CL 99 05/17/2020 CO2 28 05/17/2020 BUN 15 05/17/2020 CREATININE 0.65 (L) 05/17/2020 GLUCOSE 101 05/17/2020 CALCIUM 9.5 05/17/2020 ESTGFR 105 05/17/2020 Intervention ?? Continue regular diet as prescribed, pt upgraded back to level 1 puree diet. ?? Continue high protein, calorie snacks at meal times and at HS ?? Monitoring and Evaluation ?? Energy intake ?? Weights ?? Re-Evaluation ?? Reassessment within??5 days? Sharri Vale RDN, LD Inpatient Clinical Dietitian Ext. [phone] or Vocera * Penelope Melendez MD - 05/22/2020 1:02 PM EDT Subjective: Yaritza Burnett . is a 60 y.o. male admitted to inpatient rehabilitation for left hemiparesis (nondominant) secondary to stroke. Met with patient in his room. Bedside team conference occurred. Patient's daughter participated via phone. The patient's medical records have been reviewed. Review of Systems Pertinent items are noted in HPI. Objective: Patient Vitals for the past 24 hrs: BP Temp Temp src Resp SpO2 05/22/20 0858 99/60 37 ??C (98.6 ??F) Oral 16 98 % 05/22/20 0108 108/66 36.9 ??C (98.4 ??F) Temporal 14 99 % 05/21/20 1553 112/74 36.6 ??C (97.8 ??F) Oral 16 99 % Labs Lab Results Component Value Date CREATININE 0.65 (L) 05/17/2020 BUN 15 05/17/2020 NA 135 05/17/2020 K 4.3 05/17/2020 CL 99 05/17/2020 CO2 28 05/17/2020 Lab Results Component Value Date WBC 5.6 05/11/2020 HGB 13.4 (L) 05/11/2020 MCV 100.5 (H) 05/11/2020 Lab Results Component Value Date PTT 27 04/21/2020 Lab Results Component Value Date INR 1.1 04/21/2020 INR 1.2 04/20/2020 Assessment/Plan: Hemiparesis of left nondominant side due to cerebrovascular disease [I67.9, G81.94] Toileting is min to max assistance per RN but contact-guard with OT. He is continent and incontinent of bladder. He is continent of bowel. Eating is set up. Grooming is set up. Dressing and bathing is set up supervision upper and lower body. Bed mobility is min assist to get out and mod assist to get into bed. Transfers are contact-guard. He is ambulating contact-guard with a rolling walker 30 to70 feet. He has not yet done stairs. He is supervision with wheelchair skills. Discussed with patient and daughter regarding discharge plans. He currently lives in one small roomthat has a shared bathroom. He does not have a kitchen although he does have a microwave and hot plate. Not clear if he has a refrigerator. Daughter lives in the same building in the third floor and would be able to assist with meals. She is hoping to get an apartment that they can all live in. 2. ??Hypertension:??Rehab nursing will do vitals every shift and will adjust medication as appropriate. -Blood pressure looks controlled. -Blood pressure has been low. ??His oral intake has been low. ??We will check a BMP to assess hydration. -His blood pressure meds have been adjusted secondary to hypotension. Currently lisinopril is 10 mgand amlodipine is 5 mg. Blood pressure control looks okay -Blood pressures have actually been hypotensive in the mornings. His blood pressure meds amlodipineand lisinopril have been held the last 2 days for systolic blood pressure less than 100. During therest the day his systolic blood pressure has been generally less than 110 and certainly less than 115. Will discontinue amlodipine. Will discontinue lisinopril as well and watch him off of blood pressure medications for now. ?? 3.?Dysphagia:??Speech therapy??will assess swallow function. Consider MBS. -will order MBS -Oral intake has been poor. ??We will recheck a BMP to assess hydration. ??Still waiting on MBS. -Did well on the modified barium swallow. Is on mechanical soft diet and thin liquids ?? 4. ??Dysphonia:??Patient speech seem to be appropriate when you could hear or understand it. ??He has a very soft whisper voice. ??Speech??therapy will assess his speech-language and cognitive functioning. -Comprehension is supervision. ??Expression is mod assistance. ??Problem solving memory are max assistance. ?? 5. 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 ??No further intervention. ?? 6. ??Bilateral upper extremity superficial thrombosis and left nonocclusive subclavian DVT:??Monitor. ??No further intervention. ?? 7. ??DVT prophylaxis:??Continue Lovenox 40 mg daily. ?? 8. ??Bowel and bladder:??Rehab nursing will do postvoid residuals and clean intermittent catheterization as needed. ??He will be on bowel medication. ?? 9. ??Transaminitis:??Patient's LFTs have been elevated since admission to the hospital 04/20/2020. ??At that time his AST was 107 and his ALT was 105. ??I asked patient if he had a history of any liver problems and he said he thought so. ??When I asked him if he had a history of hepatitis he said yes. ??Not clear about the accuracy of the answers. ??Will check a hepatitis screen. ??We will check an abdominal ultrasound ?? 10. ??Hepatitis C:??Hepatitis panel is pending. ??We will add hepatitis C PCR to assess viral load -Hepatitis panel was positive for hepatitis C. ??Was also positive for hepatitis a but negative forhepatitis A IgM. ??Hepatitis C PCR still pending. ??Will get GI input. -Viral load is greatly elevated. Appreciate gastroenterology input. Needs follow-up as an outpatient to consider treatment. ?? 11. Hemochromatosis: GI had recommend checking iron studies and ferritin. The ferritin level was elevated at 637. Will discuss with GI tomorrow. ?? 12. Smoking: Patient would like to retry the nicotine patch and that has been ordered at 21 mg. Assessment and plan discussed and agreed with the following team members: . Estimated date of Discharge: 06/07/2020 Time spent on counseling/coordination of care: 15 Minutes Total time spent with patient: 15 Minutes PENELOPE MELENDEZ MD 05/22/2020 * Rachele Herrera - 05/22/2020 11:37 AM EDT Patient Name: Yaritza Burnett Sr. Patient Age: 60 y.o. Birthdate: 1960 Admit date: 05/10/2020 Attending Physician: Penelope Melendez MD Team meeting held with pt, pt's daughter by phone and [facility] staff. D/c date continues to be 06/07/20 for now. * Penelope Melendez MD - 05/21/2020 5:40 PM EDT Subjective: Yaritza Burnett Sr. is a 60 y.o. male admitted to inpatient rehabilitation for left hemiparesis (nondominant) secondary to stroke. Met with patient in his room. He is having issues with craving cigarettes. He states he tried nicotine patch in the past and did not feel like they did much for him. The patient's medical records have been reviewed. Review of Systems Pertinent items are noted in HPI. Objective: Patient Vitals for the past 24 hrs: BP Temp Temp src Resp SpO2 Weight 05/21/20 1553 112/74 36.6 ??C (97.8 ??F) Oral 16 99 % -- 05/21/20 1000 -- -- -- -- -- 56.3 kg (124 lb 3.2 oz) 05/21/20 0820 99/66 36.4 ??C (97.5 ??F) Oral 16 98 % -- 05/21/20 0500 126/70 36.8 ??C (98.2 ??F) Tympanic -- 96 % -- Labs Lab Results Component Value Date CREATININE 0.65 (L) 05/17/2020 BUN 15 05/17/2020 NA 135 05/17/2020 K 4.3 05/17/2020 CL 99 05/17/2020 CO2 28 05/17/2020 Lab Results Component Value Date WBC 5.6 05/11/2020 HGB 13.4 (L) 05/11/2020 MCV 100.5 (H) 05/11/2020 Lab Results Component Value Date PTT 27 04/21/2020 Lab Results Component Value Date INR 1.1 04/21/2020 INR 1.2 04/20/2020 EXAMINATION: XR FLUORO MODIFIED BARIUM SWALLOW ?? CLINICAL HISTORY: dysphagia ? TECHNIQUE: The examination was performed in conjunction with speech pathology. Varying consistencies of barium were administered under lateral fluoroscopic observation. ?? Fluoro time: 2 minutes ?? COMPARISON: None ?? FINDINGS: Patient has a delayed oral phase. There is spillage and delayed swallowing present but no aspiration or significant penetration with thin or soft content. ?? IMPRESSION No aspiration or penetration. Delayed swallowing and pooling in the vallecula. Signed report ?? Thank you for letting us participate in the care of this patient. For questions regarding this report, please contact the number below. Electronically signed by: HUSSEIN TYLER, [facility] ([phone]), at 05/17/2020 10:55 AM [facility] Speech Language Pathology Modified Barium Swallowing Evaluation ASSESSMENT SUMMARY: ? This patient presented with moderately oral and mild pharyngeal dysphagia. The oral phase was characterized by disorganized mastication, moderate oral residue, and delayed swallow initiation up to 20 seconds. The pharyngeal phase was typified by trace-minimal amounts of residue within the valleculae due to partial tongue base retraction and pharyngeal stripping wave. There was no penetration or aspiration seen at the time ofthis evaluation. Recommend a level two diet with thin liquids; patient would benefit from small bites/sips, extra sauces/gravies, cues to clear oral residue, and alternating solids/liquids. ?? RECOMMENDATIONS Diet recommendations Consistencies: Solids: mechanical soft diet Liquids: thin Medications: whole in pureed Compensatory strategies: small, single bites/sips, check for pocketing, alternate solids/liquids, extra sauces/gravies. ?? Patient and RN were consulted regarding these assessment results, implications, and recommendations. ? Lisa Buenrostro M.S., CCC-HOSPICE CARE SALES CONSULTANT, [id number] Certified Cinician Speech Language Pathologist Assessment/Plan: Hemiparesis of left nondominant side due to cerebrovascular disease [I67.9, G81.94] Working with therapies. He is now doing some walking. Will observe that tomorrow. 2. ??Hypertension:??Rehab nursing will do vitals every shift and will adjust medication as appropriate. -Blood pressure looks controlled. -Blood pressure has been low. ??His oral intake has been low. ??We will check a BMP to assess hydration. -His blood pressure meds have been adjusted secondary to hypotension. Currently lisinopril is 10 mgand amlodipine is 5 mg. Blood pressure control looks okay. ?? 3.?Dysphagia:??Speech therapy??will assess swallow function. Consider MBS. -will order MBS -Oral intake has been poor. We will recheck a BMP to assess hydration. Still waiting on MBS. -Did well on the modified barium swallow. Is on mechanical soft diet and thin liquids ?? 4. ??Dysphonia:??Patient speech seem to be appropriate when you could hear or understand it. ??He has a very soft whisper voice. ??Speech??therapy will assess his speech-language and cognitive functioning. -Comprehension is moderate assistance. ??Expression is max assistance. ??Problem solving memory aremax assistance. ?? 5. 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 ??No further intervention. ?? 6. ??Bilateral upper extremity superficial thrombosis and left nonocclusive subclavian DVT:??Monitor. ??No further intervention. ?? 7. ??DVT prophylaxis:??Continue Lovenox 40 mg daily. ?? 8. ??Bowel and bladder:??Rehab nursing will do postvoid residuals and clean intermittent catheterization as needed. ??He will be on bowel medication. ?? 9. ??Transaminitis:??Patient's LFTs have been elevated since admission to the hospital 04/20/2020. ??At that time his AST was 107 and his ALT was 105. ??I asked patient if he had a history of any liver problems and he said he thought so. ??When I asked him if he had a history of hepatitis he said yes. ??Not clear about the accuracy of the answers. ??Will check a hepatitis screen. ??We will check an abdominal ultrasound ?? 10. ??Hepatitis C:??Hepatitis panel is pending. ??We will add hepatitis C PCR to assess viral load -Hepatitis panel was positive for hepatitis C. ??Was also positive for hepatitis a but negative forhepatitis A IgM. ??Hepatitis C PCR still pending. ??Will get GI input. -Viral load is greatly elevated. Appreciate gastroenterology input. Needs follow-up as an outpatient to consider treatment. 11. Hemochromatosis: GI had recommend checking iron studies and ferritin. The ferritin level was elevated at 637. Will discuss with GI tomorrow. 12. Smoking: Patient would like to retry the nicotine patch and that has been ordered at 21 mg. Assessment and plan discussed and agreed with the following team members: . Estimated date of Discharge: 06/06/2020 Time spent on counseling/coordination of care: 15 Minutes Total time spent with patient: 15 Minutes PENELOPE MELENDEZ MD 05/21/2020 * Hayley Easton, RN - 05/21/2020 12:18 PM EDT Wound consult placed on patient r/t Bismark score of 13. Per staff electronic warfare officer Jennifer, patient's skin is warm, dry and intact with no skin issues. Patient is on Isoflex standard hospital bed surface, repositioned every 2 hours, with skin assessment completed every shift. * Sharri Vale, AILEEN - 05/20/2020 3:24 PM EDT Nutrition Follow-Up Current Diet: Regular diet Level 1 Pureed; To be delivered by nursing Subjective: Pt seen in meal rounds, he reports he is hungry on occasion but often feels like he doesn't have the energy to eat. Calorie count was not completed, however, per discussion with MD and nursing patient is clearly not eating <50% of his needed calories daily. Patient states that he will continue drinking and focusing energy on high protein supplements being sent at meal times. Will add high-calorie protein shake at night. Pt weight down 3 lbs since last assessment. Anthropometrics Recent Weights: Patient Vitals for the past 168 hrs: Weight 05/19/20 1227 54.7 kg (120 lb 8 oz) 05/18/20 0631 54.7 kg (120 lb 8 oz) Intake/Output Summary (Last 24 hours) at 05/20/2020 1524 Last data filed at 05/20/2020 1400 Gross per 24 hour Intake 120 ml Output 775 ml Net -655 ml Labs: Recent Labs 05/17/20 0654 GLUCOSE 101 Lab Results Component Value Date NA 135 05/17/2020 K 4.3 05/17/2020 CL 99 05/17/2020 CO2 28 05/17/2020 BUN 15 05/17/2020 CREATININE 0.65 (L) 05/17/2020 GLUCOSE 101 05/17/2020 CALCIUM 9.5 05/17/2020 ESTGFR 105 05/17/2020 ?? Intervention ?? Continue regular diet as prescribed, pt upgraded back to level 1 puree diet. Continue high protein, calorie snacks at meal times and at HS ?? Monitoring and Evaluation ?? Energy intake Weights ?? Re-Evaluation ?? Reassessment within 3-4 days ?? Sharri Jasso. NOE Vale, LD Inpatient Clinical Dietitian Ext. [phone] or Vocera * Jesse Llamas Jr., MD - 05/20/2020 1:08 PM EDT Subjective: Yaritza Burnett Sr. is a 60 y.o. male admitted to inpatient rehabilitation for CVA with left hemiparesis. Patient continues to have poor p.o. intake and dietary and nursing will be working on strategies to help increase this. Ferritin level came back quite elevated and will be asking GI for their input.. The patient's medical records have been reviewed. Review of Systems Pertinent items are noted in HPI. Objective: Patient Vitals for the past 24 hrs: BP Temp Temp src Resp SpO2 05/20/20 0931 121/75 36.6 ??C (97.9 ??F) Oral 17 98 % 05/20/20 0155 137/74 36.6 ??C (97.9 ??F) Oral 18 98 % 05/19/20 1525 101/67 (!) 34.7 ??C (94.5 ??F) Oral 16 98 % Patient is seen in his room while he is working with physical therapy Awake alert no distress Labs Lab Results Component Value Date CREATININE 0.65 (L) 05/17/2020 BUN 15 05/17/2020 NA 135 05/17/2020 K 4.3 05/17/2020 CL 99 05/17/2020 CO2 28 05/17/2020 Lab Results Component Value Date WBC 5.6 05/11/2020 HGB 13.4 (L) 05/11/2020 MCV 100.5 (H) 05/11/2020 Lab Results Component Value Date PTT 27 04/21/2020 Lab Results Component Value Date INR 1.1 04/21/2020 INR 1.2 04/20/2020 Recent Results (from the past 24 hour(s)) Lavender Tube HOLD Result Value Ref Range Lavender Hold Sample in lab. Iron and TIBC Result Value Ref Range Iron 101 45 - 160 mcg/dL TIBC 203 (L) 250 - 450 mcg/dL Iron Saturation 50 20 - 50 % Ferritin Result Value Ref Range Ferritin 637 (H) 30 - 400 ng/mL Assessment/Plan: Hemiparesis of left nondominant side due to cerebrovascular disease [I67.9, G81.94] Participating with therapies but progress has been slow. ?2. ??Hypertension:??Rehab nursing will do vitals every shift and will adjust medication as appropriate. Has had blood pressure meds held several times for low readings. ??Will decrease lisinopril to 20 mg daily, amlodipine to 5 mg daily, continue to monitor.?BP still somewhat low. ??Will decrease lisinopril to 10 mg daily. BP control quite good today, not hypotensive. ?? 3.?Dysphagia:??Speech therapy??will assess swallow function.?Modified barium swallow done today, 04/16/2020. ??Currently on level 2 diet with thin liquids. ?? 4. ??Dysphonia:??Patient speech seem to be appropriate when you could hear or understand it. ??He has a very soft whisper voice. ??Speech??therapy has??assessed??his speech-language and cognitive functioning. -Comprehension is moderate assistance. ??Expression is max assistance. ??Problem solving memory aremax assistance. ?? 5. 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 ??No further intervention. ?? 6. ??Bilateral upper extremity superficial thrombosis and left nonocclusive subclavian DVT:??Monitor. ??No further intervention. ?? 7. ??DVT prophylaxis:??Continue Lovenox 40 mg daily. ?? 8. ??Bowel and bladder:??Rehab nursing will do postvoid residuals and clean intermittent catheterization as needed. ??He will be on bowel medication. ?? 9. ??Transaminitis:??Apparently due to hepatitis C? 10. ??Hepatitis C:??Hep C PCR??viral load 769,842. Diagnosis dates back to 2010. Seen in consultation by GI 05/18/2020. Only recommending treatment if he is able to be abstinent after discharge and his general health improves. They have recommended checking iron and ferritin levels due to question in the past of hemochromatosis. Reviewed elevated ferritin with Dr Washburn, he recommends recheck in 2 months after abstaining from Etoh ?? 11. Severe protein calorie malnutrition: Dietary following, encourage po ?? Assessment and plan discussed and agreed with the following team members: nursing, GI, dietary, PT. Estimated date of Discharge:06/06/2020 Time spent on counseling/coordination of care: 15 Minutes Total time spent with patient: 30 Minutes JESSE LLAMAS JR, MD 05/20/2020 * Farzana Decker RN - 05/19/2020 12:29 PM EDT Patient is still not eating well. Mostly Ensre and Magic Cups consumed over the weekend. Breakfast was refused and patient also refused to get up for meal group. Patient remains lethargic and would prefer to be in bed most of the time. Patient did communicate more this shift then previously recorded. His medications had to be crushed due to inability to manage an appropriate swallowing technique.Will continue to monitor and advise the oncoming shift. * Jesse Llamas Jr., MD - 05/19/2020 11:11 AM EDT Subjective: Yaritza Burnett is a 60 y.o. male admitted to inpatient rehabilitation for CVA with left hemiparesis. He has no specific complaints today on review of systems. He was seen yesterday by gastroenterology in consultation and they are not recommending treatment for his hep C while he is an inpatient. The patient's medical records have been reviewed. Review of Systems Pertinent items are noted in HPI. Objective: Cachectic man awake alert no distress Patient Vitals for the past 24 hrs: BP Temp Temp src Resp SpO2 05/19/20 0914 108/68 36.7 ??C (98.1 ??F) Oral 12 98 % 05/19/20 0132 111/69 36.6 ??C (97.9 ??F) Oral 18 97 % 05/18/20 1547 100/67 36.6 ??C (97.9 ??F) Oral 17 99 % Labs Lab Results Component Value Date CREATININE 0.65 (L) 05/17/2020 BUN 15 05/17/2020 NA 135 05/17/2020 K 4.3 05/17/2020 CL 99 05/17/2020 CO2 28 05/17/2020 Lab Results Component Value Date WBC 5.6 05/11/2020 HGB 13.4 (L) 05/11/2020 MCV 100.5 (H) 05/11/2020 Lab Results Component Value Date PTT 27 04/21/2020 Lab Results Component Value Date INR 1.1 04/21/2020 INR 1.2 04/20/2020 Assessment/Plan: Hemiparesis of left nondominant side due to cerebrovascular disease [I67.9, G81.94] Participating with therapies but progress has been slow. ?2. ??Hypertension:??Rehab nursing will do vitals every shift and will adjust medication as appropriate. Has had blood pressure meds held several times for low readings. ??Will decrease lisinopril to 20 mg daily, amlodipine to 5 mg daily, continue to monitor. BP still somewhat low. Will decrease lisinopril to 10 mg daily. BP control quite good today, not hypotensive. ?? 3.?Dysphagia:??Speech therapy??will assess swallow function.?Modified barium swallow done today, 04/16/2020. ??Currently on level 2 diet with thin liquids. ?? 4. ??Dysphonia:??Patient speech seem to be appropriate when you could hear or understand it. ??He has a very soft whisper voice. ??Speech??therapy has??assessed??his speech-language and cognitive functioning. -Comprehension is moderate assistance. ??Expression is max assistance. ??Problem solving memory aremax assistance. ?? 5. 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 ??No further intervention. ?? 6. ??Bilateral upper extremity superficial thrombosis and left nonocclusive subclavian DVT:??Monitor. ??No further intervention. ?? 7. ??DVT prophylaxis:??Continue Lovenox 40 mg daily. ?? 8. ??Bowel and bladder:??Rehab nursing will do postvoid residuals and clean intermittent catheterization as needed. ??He will be on bowel medication. ?? 9. ??Transaminitis:??Apparently due to hepatitis C? 10. ??Hepatitis C:??Hep C PCR viral load 769,842. Diagnosis dates back to 2010. Seen in consultation by GI 05/18/2020. Only recommending treatment if he is able to be abstinent after discharge and hisgeneral health improves. I have recommended checking iron and ferritin levels due to question in the past of hemochromatosis 11. Severe protein calorie malnutrition: Dietary following Assessment and plan discussed and agreed with the following team members: Nursing. Estimated date of Discharge: 06/06/2020 Time spent on counseling/coordination of care: 15 Minutes Total time spent with patient: 30 Minutes JESSE LLAMAS JR, MD 05/19/2020 * Jesse Llamas Jr., MD - 05/18/2020 9:43 AM EDT Subjective: Yaritza Burnett Sr. is a 60 y.o. male admitted to inpatient rehabilitation for CVA with left hemiparesis. Yesterday during therapy he had of a discomfort. Unclear if this was chest or upper abdomen. By the time I got to evaluate him it had passed and reexam was unremarkable. Today he denies any chest pain, abdominal pain, no shortness of breath. No other issues noted by nursing. The patient's medical records have been reviewed. Review of Systems Pertinent items are noted in HPI. Objective: Patient Vitals for the past 24 hrs: BP Temp Temp src Resp SpO2 Weight 05/18/20 0904 102/68 36.6 ??C (97.9 ??F) Oral 12 98 % -- 05/18/20 0631 -- -- -- -- -- 54.7 kg (120 lb 8 oz) 05/18/20 0002 97/63 36.6 ??C (97.8 ??F) Oral 16 97 % -- 05/17/20 1552 112/74 37.1 ??C (98.7 ??F) Oral 16 98 % -- 05/17/20 1157 112/75 36.9 ??C (98.4 ??F) Temporal 20 97 % -- 05/17/20 1145 96/70 37.1 ??C (98.8 ??F) Oral 22 99 % -- Awake alert no distress Speech: Voice a soft whisper barely audible Heart: Regular rate and rhythm no murmur no gallop Lungs: Clear without wheeze rales or rhonchi Abdomen: Soft nontender Labs Lab Results Component Value Date CREATININE 0.65 (L) 05/17/2020 BUN 15 05/17/2020 NA 135 05/17/2020 K 4.3 05/17/2020 CL 99 05/17/2020 CO2 28 05/17/2020 Lab Results Component Value Date WBC 5.6 05/11/2020 HGB 13.4 (L) 05/11/2020 MCV 100.5 (H) 05/11/2020 Lab Results Component Value Date PTT 27 04/21/2020 Lab Results Component Value Date INR 1.1 04/21/2020 INR 1.2 04/20/2020 Component Value Ref Range & Units Status HCV Viral Load 769,842 IU/mL Final HCV Viral Load Final Result: [id number] IU/mL Assessment/Plan: Hemiparesis of left nondominant side due to cerebrovascular disease [I67.9, G81.94] ?? Participating with therapies but progress has been slow. ?? 2. ??Hypertension:??Rehab nursing will do vitals every shift and will adjust medication as appropriate. Has had blood pressure meds held several times for low readings. Will decrease lisinopril to 20 mg daily, amlodipine to 5 mg daily, continue to monitor. BP still somewhat low. Will decrease lisinopril to 10 mg daily ?? 3.?Dysphagia:??Speech therapy??will assess swallow function. Modified barium swallow done today,04/16/2020. Currently on level 2 diet with thin liquids. ?? 4. ??Dysphonia:??Patient speech seem to be appropriate when you could hear or understand it. ??He has a very soft whisper voice. ??Speech??therapy has assessed his speech-language and cognitive functioning. -Comprehension is moderate assistance. ??Expression is max assistance. ??Problem solving memory aremax assistance. ?? 5. 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 ??No further intervention. ?? 6. ??Bilateral upper extremity superficial thrombosis and left nonocclusive subclavian DVT:??Monitor. ??No further intervention. ?? 7. ??DVT prophylaxis:??Continue Lovenox 40 mg daily. ?? 8. ??Bowel and bladder:??Rehab nursing will do postvoid residuals and clean intermittent catheterization as needed. ??He will be on bowel medication. ?? 9. ??Transaminitis:??Apparently due to hepatitis C ?? 10. ??Hepatitis C: Hep C PCR viral load 769,842. Await GI input after that is back for treatment. Suspect will be treated as outpatient if needed. ?? Assessment and plan discussed and agreed with the following team members: Nursing. Estimated date of Discharge: 06/06/2020 Time spent on counseling/coordination of care: 15 Minutes Total time spent with patient: 30 Minutes JESSE LLAMAS JR, MD 05/18/2020 * Sharri Vale, RD - 05/17/2020 4:52 PM EDT Nutrition Follow-Up Current Diet: Regular diet Level 2 Mechanically Altered; To be delivered by nursing Subjective: Pt seen in his room where he is laying in bed. He reports he is trying to eat but it is difficult and he does not like the altered food consistency. He has been upgraded to a level 2 with thin liquids. This real estate underwriter hopes this will improve his intake. He has an open Ensure Enlive and Magic Cup at the bedside. Anthropometrics Recent Weights: Patient Vitals for the past 168 hrs: Weight 05/12/20 1917 56.2 kg (123 lb 14.4 oz) Intake/Output Summary (Last 24 hours) at 05/17/2020 1653 Last data filed at 05/17/2020 1400 Gross per 24 hour Intake 480 ml Output 450 ml Net 30 ml Labs: Recent Labs 05/17/20 0654 GLUCOSE 101 Lab Results Component Value Date NA 135 05/17/2020 K 4.3 05/17/2020 CL 99 05/17/2020 CO2 28 05/17/2020 BUN 15 05/17/2020 CREATININE 0.65 (L) 05/17/2020 GLUCOSE 101 05/17/2020 CALCIUM 9.5 05/17/2020 ESTGFR 105 05/17/2020 Intervention Initiated 3 day calorie count to assess intake Monitoring and Evaluation Energy intake Re-Evaluation Reassessment within 3-4 days Sharri Vale RDN, LD Inpatient Clinical Dietitian Ext. [phone] or Vocera * Jesse Llamas Jr., MD - 05/17/2020 9:52 AM EDT Subjective: Yaritza Burnett Sr. is a 60 y.o. male admitted to inpatient rehabilitation for CVA with left hemiparesis. Patient has no particular complaints today. He did well on his modified barium swallow today. Nurses have noted borderline low blood pressures the last few mornings so we are decreasing his lisinopril and amlodipine today. No other issues noted by nursing. The patient's medical records have been reviewed. Review of Systems Pertinent items are noted in HPI. Objective: Patient Vitals for the past 24 hrs: BP Temp Temp src Resp SpO2 05/17/20 0943 102/64 37.1 ??C (98.8 ??F) Temporal 16 98 % 05/17/20 0110 118/79 36.4 ??C (97.5 ??F) Temporal 16 97 % 05/16/20 1616 119/75 36.4 ??C (97.5 ??F) Oral 18 98 % 05/16/20 1412 113/75 -- -- -- 98 % 05/16/20 1008 110/69 -- -- -- 97 % 05/16/20 1007 118/80 -- -- -- 98 % Awake alert no distress Speech: No dysarthria but very soft whispering voice Heart: Regular rate and rhythm no murmur no gallop Lungs: Clear without wheeze rales or rhonchi Labs Lab Results Component Value Date CREATININE 0.65 (L) 05/17/2020 BUN 15 05/17/2020 NA 135 05/17/2020 K 4.3 05/17/2020 CL 99 05/17/2020 CO2 28 05/17/2020 Lab Results Component Value Date WBC 5.6 05/11/2020 HGB 13.4 (L) 05/11/2020 MCV 100.5 (H) 05/11/2020 Lab Results Component Value Date PTT 27 04/21/2020 Lab Results Component Value Date INR 1.1 04/21/2020 INR 1.2 04/20/2020 Assessment/Plan: Hemiparesis of left nondominant side due to cerebrovascular disease [I67.9, G81.94] Participating with therapies but progress has been slow. 2. ??Hypertension:??Rehab nursing will do vitals every shift and will adjust medication as appropriate. Has had blood pressure meds held several times for low readings. Will decrease lisinopril to 20 mg daily, amlodipine to 5 mg daily, continue to monitor ?? 3.?Dysphagia:??Speech therapy??will assess swallow function. Modified barium swallow done today,04/16/2020. Currently on level 2 diet with thin liquids. 4. ??Dysphonia:??Patient speech seem to be appropriate when you could hear or understand it. ??He has a very soft whisper voice. ??Speech??therapy has assessed his speech-language and cognitive functioning. -Comprehension is moderate assistance. ??Expression is max assistance. ??Problem solving memory aremax assistance. ?? 5. 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 ??No further intervention. ?? 6. ??Bilateral upper extremity superficial thrombosis and left nonocclusive subclavian DVT:??Monitor. ??No further intervention. ?? 7. ??DVT prophylaxis:??Continue Lovenox 40 mg daily. ?? 8. ??Bowel and bladder:??Rehab nursing will do postvoid residuals and clean intermittent catheterization as needed. ??He will be on bowel medication. ?? 9. ??Transaminitis:??Apparently due to hepatitis C 10. ??Hepatitis C: Hep C PCR pending. Await GI input after that is back for treatment. Suspect willbe treated as outpatient if needed. Assessment and plan discussed and agreed with the following team members: Nursing. Estimated date of Discharge: 06/06/2020 Time spent on counseling/coordination of care: 15 Minutes Total time spent with patient: 30 Minutes JESSE LLAMAS JR, MD 05/17/2020 * Lisa Buenrostro, HOSPICE CARE SALES CONSULTANT - 05/17/2020 8:41 AM EDT [facility] Speech Language Pathology Modified Barium Swallowing Evaluation HISTORY: Yaritza Burnett Sr. is a 60 y.o. male who was referred for a modified barium swallowing evaluation to assess his safety during PO intake and to identify the compensatory strategies and/or food/liquid consistencies which would enhance swallowing safety. Yaritza Burnett Sr. has a past medical history of DVT (deep venous thrombosis) LLE (05/02/2020), ETOH abuse, Hemochromatosis, Hypertension, Intraparenchymal hematoma of brain (05/10/2020), Intraventricular hemorrhage (04/20/2020), SIADH (syndrome of inappropriate ADH production) (05/02/2020), and Superficial venous thrombosis of arm, bilateral (05/02/2020). GENERAL OBSERVATIONS: This patient presented as alert, motivated, and able to understand the questions and directions related to this assessment. EVALUATION: Speech: Intelligible for conversation Voice: Significantly hypophonic Language: Functional for general conversation. Cognition: Patient presents with significant cognitive impairments; patient scored a 12/50 on the Brief Cognitive Assessment Tool. Oral Motor Functioning: This patient???s lingual and bilabial ROM and coordination were WFL. Lingual strength and speed is mildly reduced. Pt has a couple of teeth in poor condition. Oral motor functioning was judged to be adequate to support speech and swallowing. SWALLOWING ABILITY This patient was seated with 90 degrees of hip flexion and positioned for lateral projection. He was presented with thin liquid, pureed, ground food, soft solids and bread consistencies. Presentationamounts ranged from level tsp to single sips for liquids and tsp amounts for non-liquids. The following was reflective of this patient???s swallowing functioning. Oral Phase: Impaired for soft solids, ground meat, and bread consistencies. Lip closure, lingual motion, and tongue control during bolus hold were WNL. Bolus preparation/mastication for solids was disorganized and prolonged likely due, in part, to missing and poor condition of dentition. Initiationof the pharyngeal swallow occurred at the valleculae with solids after 6-20 seconds and inconsistently at the pyriform sinus with liquids. Presentations of ground were swallowed after 20 seconds. Trials of ground meat also resulted in minimal to no clearance of the bolus from the oral cavity. The patient required multiple attempts to clear the oral cavity and was asked to expectorate the remainder of the residue. He was able to clear presentation of soft with multiple swallows. Normal oral transit time = within 1-2 seconds. Pharyngeal Phase: Pharyngeal phase of the swallow was assessed to be WFL for all consistencies.Softpalate elevation, laryngeal elevation, anterior hyoid excursion, epiglottic movement, laryngeal vestibular closure, and the esophogeal sphincter opening were WNL across trials. Presentations of soft solids, ground meat and bread consistencies resulted in trace-min amounts of residue within the valleculae due to partially reduced tongue base retraction characterized by a narrow column of contrast between the tongue base and pharyngeal wall and a partial pharyngeal stripping wave. This residue was cleared with a dry swallow. There was no aspiration or penetration seen at the time of this evaluation. Pharyngeal contraction and esophogeal clearance were not assessed during this study. Pharyngeal delay - norm less than 1 second Pharyngeal transit time - norm 1 sec. Penetration-Aspiration Scale (RosenporshakPHIL., et al. 1996). Patient score in BOLD text 1. Material does not enter airway 2. Material enters the airway, remains above the vocal folds, and is ejected from the airway. 3. Material enters the airway, remains above the vocal folds, and is not ejected from the airway. 4 Material enters the airway, contacts the vocal folds, and is ejected from the airway. 5. Material enters the airway, contacts the vocal folds, and is not ejected from the airway. 6. Material enters the airway, passes below the vocal folds, and is ejected into the larynx or out of the airway. 7. Material enters the airway, passes below the vocal folds, and is not ejected from the trachea despite effort. 8. Material enters the airway, passes below the vocal folds, and no effort is made to eject. ASSESSMENT SUMMARY: This patient presented with moderately oral and mild pharyngeal dysphagia. The oral phase was characterized by disorganized mastication, moderate oral residue, and delayed swallow initiation up to 20seconds. The pharyngeal phase was typified by trace-minimal amounts of residue within the valleculae due to partial tongue base retraction and pharyngeal stripping wave. There was no penetration or aspiration seen at the time of this evaluation. Recommend a level two diet with thin liquids; patientwould benefit from small bites/sips, extra sauces/gravies, cues to clear oral residue, and alternating solids/liquids. RECOMMENDATIONS Diet recommendations Consistencies: Solids: mechanical soft diet Liquids: thin Medications: whole in pureed Compensatory strategies: small, single bites/sips, check for pocketing, alternate solids/liquids, extra sauces/gravies. Patient and RN were consulted regarding these assessment results, implications, and recommendations. Lisa Buenrostro M.S., CCC-HOSPICE CARE SALES CONSULTANT, [facility] Certified Cinician Speech Language Pathologist * Penelope Melendez MD - 05/16/2020 5:26 PM EDT Subjective: Yaritza Burnett Sr. is a 60 y.o. male admitted to inpatient rehabilitation for left hemiparesis (nondominant) secondary to stroke. Met with patient in his room. Participating with therapy. The patient's medical records have been reviewed. Review of Systems Pertinent items are noted in HPI. Objective: Patient Vitals for the past 24 hrs: BP Temp Temp src Resp SpO2 05/16/20 1616 119/75 36.4 ??C (97.5 ??F) Oral 18 98 % 05/16/20 1412 113/75 -- -- -- 98 % 05/16/20 1008 110/69 -- -- -- 97 % 05/16/20 1007 118/80 -- -- -- 98 % 05/16/20 0953 102/72 -- -- -- 99 % 05/16/20 0818 145/89 36.7 ??C (98.1 ??F) Oral 16 98 % 05/16/20 0104 124/76 36.7 ??C (98.1 ??F) Oral 15 98 % Labs Lab Results Component Value Date CREATININE 0.52 (L) 05/11/2020 BUN 19 05/11/2020 NA 134 (L) 05/11/2020 K 3.6 05/11/2020 CL 100 05/11/2020 CO2 22 05/11/2020 Lab Results Component Value Date WBC 5.6 05/11/2020 HGB 13.4 (L) 05/11/2020 MCV 100.5 (H) 05/11/2020 Lab Results Component Value Date PTT 27 04/21/2020 Lab Results Component Value Date INR 1.1 04/21/2020 INR 1.2 04/20/2020 Assessment/Plan: Hemiparesis of left nondominant side due to cerebrovascular disease [I67.9, G81.94] Continues with therapy. Going slow. Doing okay off of Provigil. 2. ??Hypertension:??Rehab nursing will do vitals every shift and will adjust medication as appropriate. -Blood pressure looks controlled. -Blood pressure has been low. ??His oral intake has been low. ??We will check a BMP to assess hydration. ?? 3.?Dysphagia:??Speech therapy??will assess swallow function. Consider MBS. -will order MBS -Oral intake has been poor. We will recheck a BMP to assess hydration. Still waiting on MBS. ?? 4. ??Dysphonia:??Patient speech seem to be appropriate when you could hear or understand it. ??He has a very soft whisper voice. Speech therapy will assess his speech-language and cognitive functioning. -Comprehension is moderate assistance. Expression is max assistance. Problem solving memory are maxassistance. ?? 5. 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 ??No further intervention. ?? 6. ??Bilateral upper extremity superficial thrombosis and left nonocclusive subclavian DVT:??Monitor. ??No further intervention. ?? 7. ??DVT prophylaxis:??Continue Lovenox 40 mg daily. ?? 8. ??Bowel and bladder:??Rehab nursing will do postvoid residuals and clean intermittent catheterization as needed. ??He will be on bowel medication. ?? 9. ??Transaminitis:??Patient's LFTs have been elevated since admission to the hospital 04/20/2020. ??At that time his AST was 107 and his ALT was 105. ??I asked patient if he had a history of any liver problems and he said he thought so. ??When I asked him if he had a history of hepatitis he said yes. ??Not clear about the accuracy of the answers. ??Will check a hepatitis screen. ??We will check an abdominal ultrasound ?? 10. ??Hepatitis C:??Hepatitis panel is pending. ??We will add hepatitis C PCR to assess viral load -Hepatitis panel was positive for hepatitis C. ??Was also positive for hepatitis a but negative forhepatitis A IgM. ??Hepatitis C PCR still pending. ??Will get GI input. Assessment and plan discussed and agreed with the following team members: . Estimated date of Discharge: 06/06/2020 Time spent on counseling/coordination of care: 15 Minutes Total time spent with patient: 15 Minutes PENELOPE MELENDEZ MD 05/16/2020 * Penelope Melendez MD - 05/15/2020 1:30 PM EDT Subjective: Yaritza Burnett Sr. is a 60 y.o. male admitted to inpatient rehabilitation for left hemiparesis (nondominant) secondary to stroke. Met with patient in his room. Bedside team conference occurred. His daughter participated via phone. Patient without any new complaints. The patient's medical records have been reviewed. Review of Systems Pertinent items are noted in HPI. Objective: Patient Vitals for the past 24 hrs: BP Temp Temp src Resp SpO2 05/15/20 0800 110/80 36.3 ??C (97.4 ??F) Oral 16 98 % 05/14/20 2344 151/81 36.8 ??C (98.2 ??F) Oral 15 98 % Labs Lab Results Component Value Date CREATININE 0.52 (L) 05/11/2020 BUN 19 05/11/2020 NA 134 (L) 05/11/2020 K 3.6 05/11/2020 CL 100 05/11/2020 CO2 22 05/11/2020 Lab Results Component Value Date WBC 5.6 05/11/2020 HGB 13.4 (L) 05/11/2020 MCV 100.5 (H) 05/11/2020 Lab Results Component Value Date PTT 27 04/21/2020 Lab Results Component Value Date INR 1.1 04/21/2020 INR 1.2 04/20/2020 Assessment/Plan: Hemiparesis of left nondominant side due to cerebrovascular disease [I67.9, G81.94] Toileting is dependent. She is continent and incontinent of both bowel and bladder. Bathing is set up. Grooming is min assist. Bathing upper and lower body is initially max assist but now was min assist. Upper body dressing initially was max assist but now with set up. Lower body dressing initiallywas dependent but now is max assist. He was max assist for footwear initially but now with set up. Bed mobility mod assist for supine to sit independent for sit to supine. Transfers were dependent initially but now are mod to max assist. Sit to stand required assist of 2 but now is mod assist of 1.He is taken 4 steps in the parallel bars x2. Wheelchair mobility is min mod assistance for 50 feet. He is not having issues with drowsiness or sleepiness. We will trial him off Provigil. 2. ??Hypertension:??Rehab nursing will do vitals every shift and will adjust medication as appropriate. -Blood pressure looks controlled. -Blood pressure has been low. ??His oral intake has been low. ??We will check a BMP to assess hydration. ?? 3.?Dysphagia:??Speech therapy??will assess swallow function. Consider MBS. -will order MBS ?? 4. ??Dysphonia:??Patient speech seem to be appropriate when you could hear or understand it. ??He has a very soft whisper voice. Speech therapy will assess his speech-language and cognitive functioning. -Comprehension is moderate assistance. Expression is max assistance. Problem solving memory are maxassistance. ?? 5. 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 ??No further intervention. ?? 6. ??Bilateral upper extremity superficial thrombosis and left nonocclusive subclavian DVT:??Monitor. ??No further intervention. ?? 7. ??DVT prophylaxis:??Continue Lovenox 40 mg daily. ?? 8. ??Bowel and bladder:??Rehab nursing will do postvoid residuals and clean intermittent catheterization as needed. ??He will be on bowel medication. ?? 9. ??Transaminitis:??Patient's LFTs have been elevated since admission to the hospital 04/20/2020. ??At that time his AST was 107 and his ALT was 105. ??I asked patient if he had a history of any liver problems and he said he thought so. ??When I asked him if he had a history of hepatitis he said yes. ??Not clear about the accuracy of the answers. ??Will check a hepatitis screen. ??We will check an abdominal ultrasound ?? 10. ??Hepatitis C:??Hepatitis panel is pending. ??We will add hepatitis C PCR to assess viral load -Hepatitis panel was positive for hepatitis C. Was also positive for hepatitis a but negative for hepatitis A IgM. Hepatitis C PCR still pending. Will get GI input. Assessment and plan discussed and agreed with the following team members: . Estimated date of Discharge:06/06/20 Time spent on counseling/coordination of care: 15 Minutes Total time spent with patient: 15 Minutes PENELOPE MELENDEZ MD 05/15/2020 * Rachele Herrera - 05/15/2020 11:41 AM EDT Patient Name: Yaritza Burnett Sr. Patient Age: 60 y.o. Birthdate: 1960 Admit date: 05/10/2020 Attending Physician: Penelope Melendez MD Team meeting held with pt, pt's daughter and [facility] staff. His d/c date was set for 06/07/20. He will need a handicap placard at d/c. * Penelope Melendez MD - 05/14/2020 7:10 PM EDT Subjective: Yaritza Burnett Sr. is a 60 y.o. male admitted to inpatient rehabilitation for left hemiparesis (nondominant) secondary to stroke. Met with patient in his room. Doing okay. No particular complaints. The patient's medical records have been reviewed. Review of Systems Pertinent items are noted in HPI. Objective: Patient Vitals for the past 24 hrs: BP Temp Temp src Pulse Resp SpO2 05/14/20 0700 100/70 36.7 ??C (98.1 ??F) Oral -- -- -- 05/14/20 0230 130/62 36.6 ??C (97.9 ??F) Oral 86 12 97 % Labs Lab Results Component Value Date CREATININE 0.52 (L) 05/11/2020 BUN 19 05/11/2020 NA 134 (L) 05/11/2020 K 3.6 05/11/2020 CL 100 05/11/2020 CO2 22 05/11/2020 Lab Results Component Value Date WBC 5.6 05/11/2020 HGB 13.4 (L) 05/11/2020 MCV 100.5 (H) 05/11/2020 Lab Results Component Value Date PTT 27 04/21/2020 Lab Results Component Value Date INR 1.1 04/21/2020 INR 1.2 04/20/2020 Component Latest Ref Rng & Units 05/11/2020 HepB Surface Ab Quant IU/L <3.5 HepB Surface Ab Negative Hepatitis A IgM Negative Negative HepB Surface Ag Negative Negative Hep B Core Ab Negative Negative Hepatitis C Ab Negative Positive (A) Hepatitis A Ab Negative Positive (A) Assessment/Plan: Hemiparesis of left nondominant side due to cerebrovascular disease [I67.9, G81.94] Initial team conference tomorrow. 2. ??Hypertension:??Rehab nursing will do vitals every shift and will adjust medication as appropriate. -Blood pressure looks controlled. -Blood pressure has been low. His oral intake has been low. We will check a BMP to assess hydration. ?? 3.?Dysphagia:??Speech therapy??will assess swallow function. Consider MBS. ?? 4. ??Dysphonia:??Patient speech seem to be appropriate when you could hear or understand it. ??He has a very soft whisper voice. ??His therapy will assess his speech-language and cognitive functioning. ?? 5. 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 ??No further intervention. ?? 6. ??Bilateral upper extremity superficial thrombosis and left nonocclusive subclavian DVT:??Monitor. ??No further intervention. ?? 7. ??DVT prophylaxis:??Continue Lovenox 40 mg daily. ?? 8. ??Bowel and bladder:??Rehab nursing will do postvoid residuals and clean intermittent catheterization as needed. ??He will be on bowel medication. ?? 9. ??Transaminitis:??Patient's LFTs have been elevated since admission to the hospital 04/20/2020. ??At that time his AST was 107 and his ALT was 105. ??I asked patient if he had a history of any liver problems and he said he thought so. ??When I asked him if he had a history of hepatitis he said yes. ??Not clear about the accuracy of the answers. ??Will check a hepatitis screen. ??We will check an abdominal ultrasound ?? 10. ??Hepatitis C:??Hepatitis panel is pending. ??We will add hepatitis C PCR to assess viral load -Hepatitis panel was positive for hepatitis C. Was also positive for hepatitis a but negative for hepatitis A IgM. Hepatitis C PCR still pending. Will get GI input. Assessment and plan discussed and agreed with the following team members: . Estimated date of Discharge: To be determined Time spent on counseling/coordination of care: 15 Minutes Total time spent with patient: 15 Minutes PENELOPE MELENDEZ MD 05/14/2020 * Rachele Herrera - 05/14/2020 3:09 PM EDT Patient Name: Yaritza Burnett . Patient Age: 60 y.o. Birthdate: 1960 Admit date: 05/10/2020 Attending Physician: Penelope Melendez MD Attempted to call pt's daughter Susanna to invite her to attend pt's team meeting by phone. I received a message saying that the pt's voicemail box is full. I was unable to leave a message. * Jessica Wilder RN - 05/13/2020 11:37 PM EDT When HS meds given, pt ate container of apple sauce and chocolate ice cream. He needed to be moris these foods. * Penelope Melendez MD - 05/13/2020 5:20 PM EDT Subjective: Yaritza Burnett Sr. is a 60 y.o. male admitted to inpatient rehabilitation for left hemiparesis (nondominant) secondary to stroke. Met with patient in his room. He is awake alert. The patient's medical records have been reviewed. Review of Systems Pertinent items are noted in HPI. Objective: Patient Vitals for the past 24 hrs: BP Temp Temp src Pulse Resp SpO2 Weight 05/13/20 1550 121/70 36.7 ??C (98.1 ??F) Oral -- 18 99 % -- 05/13/20 1100 90/75 -- -- -- -- -- -- 05/13/20 0900 100/70 36.6 ??C (97.8 ??F) Oral -- 16 98 % -- 05/12/20 2325 128/75 36.5 ??C (97.7 ??F) Oral 87 16 96 % -- 05/12/20 1917 -- -- -- -- -- -- 56.2 kg (123 lb 14.4 oz) Labs Lab Results Component Value Date CREATININE 0.52 (L) 05/11/2020 BUN 19 05/11/2020 NA 134 (L) 05/11/2020 K 3.6 05/11/2020 CL 100 05/11/2020 CO2 22 05/11/2020 Lab Results Component Value Date WBC 5.6 05/11/2020 HGB 13.4 (L) 05/11/2020 MCV 100.5 (H) 05/11/2020 Lab Results Component Value Date PTT 27 04/21/2020 Lab Results Component Value Date INR 1.1 04/21/2020 INR 1.2 04/20/2020 Assessment/Plan: Hemiparesis of left nondominant side due to cerebrovascular disease [I67.9, G81.94] Therapies ongoing. Team conference midweek. 2. ??Hypertension:??Rehab nursing will do vitals every shift and will adjust medication as appropriate. -Blood pressure looks controlled. -Blood pressure has been low. His oral intake has been low. We will check a BMP to assess hydration. ?? 3.?Dysphagia:??Speech therapy??will assess swallow function. Consider MBS. ?? 4. ??Dysphonia:??Patient speech seem to be appropriate when you could hear or understand it. ??He has a very soft whisper voice. ??His therapy will assess his speech-language and cognitive functioning. ?? 5. 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 ??No further intervention. ?? 6. ??Bilateral upper extremity superficial thrombosis and left nonocclusive subclavian DVT:??Monitor. ??No further intervention. ?? 7. ??DVT prophylaxis:??Continue Lovenox 40 mg daily. ?? 8. ??Bowel and bladder:??Rehab nursing will do postvoid residuals and clean intermittent catheterization as needed. ??He will be on bowel medication. ?? 9. ??Transaminitis:??Patient's LFTs have been elevated since admission to the hospital 04/20/2020. ??At that time his AST was 107 and his ALT was 105. ??I asked patient if he had a history of any liver problems and he said he thought so. ??When I asked him if he had a history of hepatitis he said yes. ??Not clear about the accuracy of the answers. ??Will check a hepatitis screen. ??We will check an abdominal ultrasound ?? 10. Probable hepatitis C: Hepatitis panel is pending. We will add hepatitis C PCR to assess viral load. Assessment and plan discussed and agreed with the following team members: . Estimated date of Discharge: To be determined Time spent on counseling/coordination of care: 15 Minutes Total time spent with patient: 15 Minutes PENELOPE MELENDEZ MD 05/13/2020 * Sharri Vale, RD - 05/13/2020 12:58 PM EDT Nutrition Assessment Reason for Assessment: Prioritization of Care Yaritza Burnett Sr. Age:60 y.o. Sex: Male Admitting Diagnosis: Hemiparesis of left nondominant side due to cerebrovascular disease [I67.9, G81.94] Anthropometrics Current Weight: Weight: 56.2 kg (123 lb 14.4 oz) Height: Ht Readings from Last 1 Encounters: 05/10/20 172.7 cm (5' 8) Body mass index is 18.84 kg/m??. Diet History Current Diet: Regular diet Level 2 Mechanically Altered Nutrition Support: Food/Nutrition Related Hx: Pt seen in his room where he was undergoing an assessment with HOSPICE CARE SALES CONSULTANT. Pt appears thin and malnourished. Pt has dysphonia and struggles with the volume of his voice which is very low. Pt mostly responds with yes/no answers but is able to tell me that he has always been thin and that his UBW is 155 lbs. (20% weight loss in an unspecified period of time). Per nursing report patient needs complete help with feeding, however, per MICROFILM MACHINE OPERATOR report pt does well with self feeding, however, he requires extra time between bites and chews slowly. HOSPICE CARE SALES CONSULTANT will continue to monitor. Allergies: No Known Allergies Past Medical History: Diagnosis Date ??? DVT (deep venous thrombosis) LLE 05/02/2020 ??? ETOH abuse ??? Hemochromatosis ??? Hypertension ??? Intraparenchymal hematoma of brain 05/10/2020 ??? Intraventricular hemorrhage 04/20/2020 Admitted 04/20/2020 [email or web address]@ Extended Emergency Contact Information Primary Emergency Contact: Ervin Burnettsa Mobile Relation: Child Right caudate and IVH Antithrombotic stroke prevention N/A Statin therapy N/A Blood Pressure goals/control Glycemic control No results found for: HA1C Smoking/tobacco Social History Tobacco Use Smoking Status Current Every Day Smoker V ??? SIADH (syndrome of inappropriate ADH production) 05/02/2020 2/2 ICH ??? Superficial venous thrombosis of arm, bilateral 05/02/2020 Labs: Recent Labs 05/11/20 0652 GLUCOSE 105 Lab Results Component Value Date NA 134 (L) 05/11/2020 K 3.6 05/11/2020 CL 100 05/11/2020 CO2 22 05/11/2020 BUN 19 05/11/2020 CREATININE 0.52 (L) 05/11/2020 GLUCOSE 105 05/11/2020 CALCIUM 8.9 05/11/2020 ESTGFR 115 05/11/2020 Lab Results Component Value Date HA1C 5.4 05/03/2020 Nutrition Related Problems Intake/Digestive/Other Problems: Swallowing problem , pt on level 2 dysphagia diet Physical & Mental Status: dysphonia Nutrition Focused Physical Exam: Pt observed during NFPE as follows: Body fat loss Orbital: moderate Triceps: moderate Ribcage: not assessed Muscle mass loss Temples: Severe Clavicles: Not observed Shoulder: Not observed Scapula: Not observed Thigh: Severe Calf: Severe Estimated Nutrition Requirements Energy Requirements: [id number] Jeor x 1.1-1.3 AF/SF. Protein Requirements: 68-82 gms using 1-1.2 gm/kg Upper-end IBW. Nutrition Diagnosis Statements Involuntary weight loss related to: HPI evidenced by: pt with 20% significant weight loss in unknown time period, pt reports UBW of 155 lbs, BMI 18, pt requiring level 2 diet which can cause patientsto eat less Nutrition Status Patient meets criteria for severe malnutrition in context of acute illness as evidenced by less than<75% estimated energy requirement for >7 days, 20% weight loss in an unspecified period of time, and severe loss of fat/muscle mass based on nutrition-focused physical exam: Severe loss of muscle in the temples, thighs and calves. Level of Care High Intervention Recommend regular level 2 diet as prescribed with diet advancement as medically able Patient agreeable to supplementation of high calorie protein foods which can easily be managed as follows: Ensure Enlive 8 oz on trays BID at L,D providing 350 kcal and 20g protein per serving [place]/banana smoothie at breakfast with 1 scoop Unjury protein powder to provide 350 kcal and 30g protein Magic cups at L, D to provide 210 kcal and 9g protein per serving Monitoring and Evaluation Intake of meals and supplements Weights Goal of Therapy Demonstrate improvement in PO intake Re-Evaluation Reassessment within 3-4 days Sharri Vale RDN, LD Inpatient Clinical Dietitian Ext. [phone] or Vocera * Marquita Webber RN - 05/12/2020 10:14 PM EDT Patient OOB for supper for one hour. Is able to drink from cup by himself, but needs help with feeding. Unable to assess if patient is alert & oriented x 3, he appears at times to understand, then will say random comments that does not make sense. Attempted to get out of wheel chair, stated he wanted to get up and do things in the room. got a call from significant other Shwetha, per daughter Susanna, when asked if she was his girlfriend he stated no and shook his head no. Got irritated when being fed. When doing oral care he stated don't piss me off. When MICROFILM MACHINE OPERATOR would ask question, he would look at her, then look away and not answer. Repositioned often, minimum of 2 hours. * Jessica Wilder RN - 05/12/2020 2:44 PM EDT Pt assisted with washing his hair today. MICROFILM MACHINE OPERATOR reports having black specks in the sink after washing his hair that look like coffee grounds. Sink had already been cleaned so unable to assess. I saw nothing on his scalp or in his hair other than dandruff. * Penelope Melendez MD - 05/12/2020 12:28 PM EDT Subjective: Yaritza Burnett . is a 60 y.o. male admitted to inpatient rehabilitation for left hemiparesis (nondominant) secondary to stroke. Met with patient in his room. Continues with a soft whisper. He againreconfirmed that he does have a history of hepatitis. When I asked him what type he stated hepatitis C diagnosed a few months ago. The patient's medical records have been reviewed. Review of Systems Pertinent items are noted in HPI. Objective: Patient Vitals for the past 24 hrs: BP Temp Temp src Resp SpO2 05/12/20 0912 117/73 36.9 ??C (98.5 ??F) Temporal -- 98 % 05/11/20 2300 124/72 37 ??C (98.6 ??F) Oral 14 92 % 05/11/20 1600 122/77 36.8 ??C (98.2 ??F) Oral 16 98 % Labs Lab Results Component Value Date CREATININE 0.52 (L) 05/11/2020 BUN 19 05/11/2020 NA 134 (L) 05/11/2020 K 3.6 05/11/2020 CL 100 05/11/2020 CO2 22 05/11/2020 Lab Results Component Value Date WBC 5.6 05/11/2020 HGB 13.4 (L) 05/11/2020 MCV 100.5 (H) 05/11/2020 Lab Results Component Value Date PTT 27 04/21/2020 Lab Results Component Value Date INR 1.1 04/21/2020 INR 1.2 04/20/2020 Assessment/Plan: Hemiparesis of left nondominant side due to cerebrovascular disease [I67.9, G81.94] Therapy eval's ongoing. Team conference later in the week. He is awake and alert. May not need Provigil but would like to wait until team conference before deciding about withdrawing it. 2. ??Hypertension:??Rehab nursing will do vitals every shift and will adjust medication as appropriate. -Blood pressure looks controlled. ?? 3.?Dysphagia:??Speech therapy??will assess swallow function. Consider MBS. ?? 4. ??Dysphonia:??Patient speech seem to be appropriate when you could hear or understand it. ??He has a very soft whisper voice. ??His therapy will assess his speech-language and cognitive functioning. ?? 5. 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 ??No further intervention. ?? 6. ??Bilateral upper extremity superficial thrombosis and left nonocclusive subclavian DVT:??Monitor. ??No further intervention. ?? 7. ??DVT prophylaxis:??Continue Lovenox 40 mg daily. ?? 8. ??Bowel and bladder:??Rehab nursing will do postvoid residuals and clean intermittent catheterization as needed. ??He will be on bowel medication. ?? 9. Transaminitis: Patient's LFTs have been elevated since admission to the hospital 04/20/2020. At that time his AST was 107 and his ALT was 105. I asked patient if he had a history of any liver problems and he said he thought so. When I asked him if he had a history of hepatitis he said yes. Not clear about the accuracy of the answers. Will check a hepatitis screen. We will check an abdominal ultrasound 10. Probable hepatitis C: Hepatitis panel is pending. We will add hepatitis C PCR to assess viral load. Assessment and plan discussed and agreed with the following team members: . Estimated date of Discharge: To be determined Time spent on counseling/coordination of care: 15 Minutes Total time spent with patient: 15 Minutes PENELOPE MELENDEZ MD 05/12/2020 * Marquita Webber RN - 05/11/2020 10:23 PM EDT Patient took only bites at meal, stated I'm not hungry. Drank 680cc of fluids this shift. Took pills with apple sauce. Several food options offered. Educated on importance of eating. Repositioned often. On Isoflex gel low air loss bed. * Penelope Melendez MD - 05/11/2020 1:28 PM EDT Subjective: Yaritza Burnett . is a 60 y.o. male admitted to inpatient rehabilitation for left hemiparesis (nondominant) secondary to stroke. Met with patient in his room. His voice is still a soft whisper. The patient's medical records have been reviewed. Review of Systems Pertinent items are noted in HPI. Objective: Patient Vitals for the past 24 hrs: BP Temp Temp src Resp SpO2 Height Weight 05/11/20 0854 120/76 36.7 ??C (98 ??F) Oral 14 99 % -- -- 05/10/20 2358 142/82 36.7 ??C (98 ??F) Temporal 18 98 % -- -- 05/10/20 1408 118/72 36.9 ??C (98.5 ??F) Temporal 18 99 % 172.7 cm (5' 8) 56.5 kg (124 lb 9.6 oz) Labs Lab Results Component Value Date CREATININE 0.52 (L) 05/11/2020 BUN 19 05/11/2020 NA 134 (L) 05/11/2020 K 3.6 05/11/2020 CL 100 05/11/2020 CO2 22 05/11/2020 Lab Results Component Value Date WBC 5.6 05/11/2020 HGB 13.4 (L) 05/11/2020 MCV 100.5 (H) 05/11/2020 Lab Results Component Value Date PTT 27 04/21/2020 Lab Results Component Value Date INR 1.1 04/21/2020 INR 1.2 04/20/2020 Assessment/Plan: Hemiparesis of left nondominant side due to cerebrovascular disease [I67.9, G81.94] Therapy eval's ongoing. Bedside team conference mid next week. 2. Hypertension: Rehab nursing will do vitals every shift and will adjust medication as appropriate. -Blood pressure looks controlled. ?? 3. Dysphagia: Speech therapy will assess swallow function. Consider MBS. ?? 4. Dysphonia: Patient speech seem to be appropriate when you could hear or understand it. He has a very soft whisper voice. His therapy will assess his speech-language and cognitive functioning. ?? 5. Left lower extremity nonocclusive DVT: Duplex study suggests that chronic. No further intervention. ?? 6. Bilateral upper extremity superficial thrombosis and left nonocclusive subclavian DVT: Monitor. No further intervention. ?? 7. DVT prophylaxis: Continue Lovenox 40 mg daily. ?? 8. Bowel and bladder: Rehab nursing will do postvoid residuals and clean intermittent catheterization as needed. He will be on bowel medication. 9. Transaminitis: Patient's LFTs have been elevated since admission to the hospital 04/20/2020. At that time his AST was 107 and his ALT was 105. I asked patient if he had a history of any liver problems and he said he thought so. When I asked him if he had a history of hepatitis he said yes. Not clear about the accuracy of the answers. Will check a hepatitis screen. We will check an abdominal ultrasound. Bilirubins are normal. We will check an ammonia level as well. Assessment and plan discussed and agreed with the following team members: . Estimated date of Discharge: To be determined Time spent on counseling/coordination of care: 15 Minutes Total time spent with patient: 30 Minutes PENELOPE MELENDEZ MD 05/11/2020 documented in this encounter H&P Notes * Penelope Melendez MD - 05/10/2020 4:15 PM EDT History and Physical Exam Post-Admission Physician Evaluation Problem List: Active Hospital Problems Diagnosis ??? Intraparenchymal hematoma of brain ??? Hypertension ??? Hemiparesis of left nondominant side due to cerebrovascular disease ??? Dysphagia due to recent cerebrovascular accident ??? SIADH (syndrome of inappropriate ADH production) ??? DVT (deep venous thrombosis) LLE ??? Superficial venous thrombosis of arm, bilateral ??? Intraventricular hemorrhage Resolved Hospital Problems No resolved problems to display. Active Non-Hospital Problems Diagnosis ??? Drug abuse ??? Pneumonia due to Haemophilus influenzae ??? Compression of brain due to spontaneous cerebral hemorrhage ID: Yaritza Burnett . is a 60 y.o. male who presents to [facility] with left hemiparesis (nondominant) secondary to stroke. History of Present Illness: Patient is a 60-year-old right-handed male patient who is not able to tell me who his primary care providers who on 04/20/2020 was brought to [facility] with acute mental status changes. CT scan there showed very large intraventricular hemorrhage. He was transferred to [facility] for neurosurgical evaluation. CT/CTA 04/20/2020 showed right caudate intraparenchymal hemorrhage with intraventricular extension; supratentorial hydrocephalus; no aneurysm or large vessel occlusion. MRI brain 04/21/2020 showed right basal ganglia hemorrhage with intraventricular extension and ventricular enlargement; no underlying mass. MRI brain 04/23/2020 showed scattered punctate central and white matter infarcts likely microembolic right greater than left; known basal ganglia hemorrhage. CT of the brain 05/01/2020 showed improvement of intraventricular hemorrhage with stable right intraparenchymal hemorrhage. MRI/MRA brain 05/03/2020 showed persistent ventriculomegaly and extensive intraventricular hemorrhage; no new changes; no changes from prior study. Transthoracic echocardiogram 04/22/2020 showed normal left ventricular size and motion with ejection fraction 60%. Venous duplex bilateral lower extremities 04/29/2020 showed right was negative for DVT; left subacute/chronic nonocclusive DVT. Venous duplex bilateral upper extremity 05/01/2020 showed right acute superficial thrombosis; left nonocclusive DVT subclavian vein; acute superficial thrombus basilic vein left upper extremity. Venous duplex bilateral lower extremity 05/06/2020 showed no change. He was diagnosed with SIADH and was on fluid restriction. This has since resolved. He was also treated for an H. influenzae pneumonia. Preadmission Functional Status: Max assist to dependent for ADLs. Dependent for bed mobility transfers. Social/Functional History: Patient states he is and lives in a trailer with no steps the front door. He was independent with his ambulation ADLs. He denies any bowel or bladder complaints. He states he does not drive and does not have a handicap placard. Past Medical and Surgical History: Past Medical History: Diagnosis Date ??? DVT (deep venous thrombosis) LLE 05/02/2020 ??? ETOH abuse ??? Hemochromatosis ??? Hypertension ??? Intraparenchymal hematoma of brain 05/10/2020 ??? Intraventricular hemorrhage 04/20/2020 Admitted 04/20/2020 @ADDRESSFULL@ Extended Emergency Contact Information Primary Emergency Contact: Susanna Burnett Mobile Relation: Child Right caudate and IVH Antithrombotic stroke prevention N/A Statin therapy N/A Blood Pressure goals/control Glycemic control No results found for: HA1C Smoking/tobacco Social History Tobacco Use Smoking Status Current Every Day Smoker V ??? SIADH (syndrome of inappropriate ADH production) 05/02/2020 2/2 ICH ??? Superficial venous thrombosis of arm, bilateral 05/02/2020 Past Surgical History: Procedure Laterality Date ??? HERNIA REPAIR ??? LUMBAR PUNCTURE 05/03/2020 ??? PRO PERM OCCLUSION/EMBOLIZATION, PERCUT, WELDING ROD COATER N/A 04/22/2020 @TRANSCATHETER OCCLUSION/EMBOLIZATION FOR TUMOR DESTRUCTION performed by Ronda Garrison MD at [facility] Immunizations: There is no immunization history on file for this patient. Prior To Admission Medications: Medications Prior to Admission Medication Sig Dispense Refill Last Dose ??? amLODIPine (Norvasc) 10 mg Tablet Take 1 tablet by mouth daily. 90 tablet 3 05/10/2020 at Unknown time ??? enoxaparin (LOVENOX) 40 mg/0.4 mL Syringe Inject 0.4 mLs subcutaneously every evening. For DVT ppx 05/09/2020 at Unknown time ??? famotidine (Pepcid) 40 mg Tablet Take 1 tablet by mouth daily. 30 tablet 12 05/10/2020 at Unknown time ??? folic acid (Folvite) 1 mg Tablet Take 1 tablet by mouth daily. 90 tablet 3 05/10/2020 at Unknowntime ??? lisinopriL (Prinivil;Zestril) 40 mg Tablet Take 1 tablet by mouth daily. 90 tablet 3 05/10/2020 at Unknown time ??? modafiniL (Provigil) 100 mg Tablet Take 1 tablet by mouth 2 times daily. 05/10/2020 at Unknown time ??? multivitamin with minerals (THERA-M) 9 mg iron-400 mcg Tablet Take 1 tablet by mouth daily. 05/10/2020 at Unknown time ??? thiamine (Vitamin B1) Take 1 tablet by mouth daily. 05/10/2020 at Unknown time ??? acetaminophen (Tylenol) 500 mg Tablet Take 1 tablet by mouth every 6 hours as needed for Pain. 30 tablet 1 Unknown at Unknown time ??? propranoloL (Inderal) 40 mg Tablet Take 1 tablet by mouth every 8 hours as needed. Unknown at Unknown time Allergies: No Known Allergies Review of Systems: Negative supports mentioned above Physical Exam: Last Set of Vitals and range of vitals over past 24 hours: Last value Range last 24 hrs Temperature Temp: 36.9 ??C (98.5 ??F) Temp: [36.4 ??C (97.5 ??F)-37 ??C (98.6 ??F)] Heart Rate Heart Rate: [72-74] Blood Pressure BP: 118/72 BP: (116-137)/(59-83) Respiratory Rate Resp: 18 Resp: [16-18] SpO2 SpO2: 99 % SpO2: [96 %-99 %] Body mass index is 18.95 kg/m??. HEENT: Atraumatic normocephalic sclera are clear nonicteric conjunctiva clear noninjected oropharynx is pink moist intact. Neck: Supple with a full range of motion. Cardiovascular: Regular rate and rhythm and no murmur. Pulmonary: Lungs are clear to auscultation percussion. No wheezes rales or rhonchi. Genital: Normal circumcised male. Rectal: Not indicated this time. Extremities: No gross deformity or significant edema. Skin: No pressure sores or open wounds or rashes. Neuro: Patient is awake and alert. He is a very soft voice or whisper. Difficult to hear. Follows commands well. Cranial nerves II through XII are otherwise intact. Strength of his right upper and lower extremity was 5/5 throughout. Strength of the left upper extremity shows a weak curtain hemmer automatic. Biceps andtriceps were both 4/5. Left lower extremity hamstrings 4-/5. Quadriceps 1/5. Dorsiflexion 3/5. Deeptendon reflexes were +2 and plantar responses were downgoing. Laboratory (Last 24 Hours): No results found for this or any previous visit (from the past 24 hour(s)). Microbiology: Blood Cultures: Urine Cultures: Radiology: CXR - CT - Ultrasound - MRI - Other Studies: EKG - Echocardiogram - Vascular Studies - Pulmonary Report - Endoscopy - Assessment: 1. Left hemiparesis (nondominant) secondary to stroke with ambulatory and ADL dysfunction: Patient will require a comprehensive integrated interdisciplinary acute inpatient rehabilitation program. Their preadmission documentation and transfer materials were reviewed and they are consistent with theinformation that was read. They will require physical therapy for bed mobility, transfers, ambulation et cetera. Occupational therapy for functional mobility, dressing, bathing etc. Rehab nursing forpain control, wound management, follow through with therapies etc. 2. Hypertension: Rehab nursing will do vitals every shift and will adjust medication as appropriate. 3. Dysphagia: Speech therapy will assess swallow function. Consider MBS. 4. Dysphonia: Patient speech seem to be appropriate when you could hear or understand it. He has a very soft whisper voice. His therapy will assess his speech-language and cognitive functioning. 5. Left lower extremity nonocclusive DVT: Duplex study suggests that chronic. No further intervention. 6. Bilateral upper extremity superficial thrombosis and left nonocclusive subclavian DVT: Monitor. No further intervention. 7. DVT prophylaxis: Continue Lovenox 40 mg daily. 8. Bowel and bladder: Rehab nursing will do postvoid residuals and clean intermittent catheterization as needed. He will be on bowel medication. Plan: ?? Admit to acute inpatient rehabilitation ?? DVT Prophylaxis ?? If currently a smoker - advised about smoking cessation and will provide smoking cessation material and support. ?? Pneumovax and Influenza Immunizations given as needed. ?? Discussed Advanced Directives and Code Status. The patient wishesto be Full Code. Rehab Goals: 1. Independent bed mobility 2. Modified independent transfers 3. Modified independent ADLs 4. Modified independent ambulation 5. Independent bowel bladder management Estimated Length of Stay: 4 to 6 weeks Disposition: Home with home health services versus outpatient. Patient does not have a living well desires to be a full code. A copy of this document will be sent to the patient's Primary Care Physician and/or Referring Physician. PENELOPE MELENDEZ MD 05/10/2020 documented in this encounter Miscellaneous Notes * Consult Note - Brien Quesada MD - 05/18/2020 11:30 AM EDT Patient Name: Yaritza Burnett Sr. Patient Age: 60 y.o. Birthdate: 1960 Admit date: 05/10/2020 Attending Physician: Penelope Melendez MD Subjective: Yaritza Burnett Sr., is a 60 y.o. patient with elevated transaminases, positive for hepatitis C witha PCR count of [phone] international unit/mL. GI service is asked for an opinion. Have information in EMR and pertinent outside information scanned into EMR reviewed. Mr. Burnett is known for tobaccoism, alcoholism, hypertension and drug abuse. He suffered a massive intracerebral bleed April 20 with left hemiparesis, he had been admitted to [facility] May 10 for rehabilitation. May 12, AST was 106 and ALT 146. Recent abdominal ultrasound describes a coarse liver parenchyma. According to scanned material hepatitis C is known at least since 2010. Ferritin at that time was with 597 ng/mL just mildly elevated. (Upper limit of normal 365). A diagnosis of hemochromatosis was given. I cannot find on what additional information this diagnosis had been based on. Review of Systems: Not collected. Patient Active Problem List Diagnosis Code ??? Intraventricular hemorrhage I61.5 ??? Compression of brain due to spontaneous cerebral hemorrhage G93.5, I61.9 ??? SIADH (syndrome of inappropriate ADH production) E22.2 ??? Dysphagia due to recent cerebrovascular accident I69.391 ??? Drug abuse F19.10 ??? Pneumonia due to Haemophilus influenzae J14 ??? DVT (deep venous thrombosis) LLE I82.409 ??? Superficial venous thrombosis of arm, bilateral I82.613 ??? Intraparenchymal hematoma of brain S06.360A ??? Hypertension I10 ??? Hemiparesis of left nondominant side due to cerebrovascular disease I67.9, G81.94 Past Surgical History: Procedure Laterality Date ??? HERNIA REPAIR ??? LUMBAR PUNCTURE 05/03/2020 ??? PRO PERM OCCLUSION/EMBOLIZATION, PERCUT, WELDING ROD COATER N/A 04/22/2020 @TRANSCATHETER OCCLUSION/EMBOLIZATION FOR TUMOR DESTRUCTION performed by Ronda Garrison MD at [facility] No current facility-administered medications on file prior to encounter. Current Outpatient Medications on File Prior to Encounter Medication Sig Dispense Refill ??? amLODIPine (Norvasc) 10 mg Tablet Take 1 tablet by mouth daily. 90 tablet 3 ??? enoxaparin (LOVENOX) 40 mg/0.4 mL Syringe Inject 0.4 mLs subcutaneously every evening. For DVT ppx ??? famotidine (Pepcid) 40 mg Tablet Take 1 tablet by mouth daily. 30 tablet 12 ??? folic acid (Folvite) 1 mg Tablet Take 1 tablet by mouth daily. 90 tablet 3 ??? lisinopriL (Prinivil;Zestril) 40 mg Tablet Take 1 tablet by mouth daily. 90 tablet 3 ??? modafiniL (Provigil) 100 mg Tablet Take 1 tablet by mouth 2 times daily. ??? multivitamin with minerals (THERA-M) 9 mg iron-400 mcg Tablet Take 1 tablet by mouth daily. ??? thiamine (Vitamin B1) Take 1 tablet by mouth daily. ??? acetaminophen (Tylenol) 500 mg Tablet Take 1 tablet by mouth every 6 hours as needed for Pain. 30 tablet 1 ??? propranoloL (Inderal) 40 mg Tablet Take 1 tablet by mouth every 8 hours as needed. No Known Allergies No family history on file. Social History Tobacco Use ??? Smoking status: Current Every Day Smoker ??? Smokeless tobacco: Never Used Substance Use Topics ??? Alcohol use: Yes ??? Drug use: Yes : Results for orders placed during the hospital encounter of 04/20/20 XR Abdomen 1 view (Generic) Narrative EXAMINATION: XR ABDOMEN 1 VIEW (GENERIC) CLINICAL HISTORY: s/p DHT placement 60-year-old male TECHNIQUE: A single supine view of the upper abdomen. COMPARISON: 04/25/2020 FINDINGS: Exchange of enteric tube with Dobbhoff type catheter, wire remains in place, tip overlying the expected location of the gastric body. Multiple overlying leads. Air-filled loops of small bowel prominent are prominent, with air-filled loops of surrounding colon. Impression 1. Enteric tube exchange, Dobbhoff tip, as above. 2. Prominent loops of air-filled bowel, supine only view. Thank you for letting us participate in the care of this patient. For questions regarding this report, please contact the number below. Electronically signed by: Casey Grove [facility] ([phone]), at 04/26/2020 12:51 PM Results for orders placed during the hospital encounter of 05/10/20 US Abdomen Complete Narrative Abdominal (Signed Final 05/11/2020 02:57 pm) PATIENT INFO: ID #: [id number] : [birth year] (60 yrs)(M) Name: YARITZA BURNETT Visit Date: 05/11/2020 02:27 pm PERFORMED BY: Performed By: Bailey Zaragoza RDMS Attending: Kevin Montalvo MD Referred By: PENELOPE MELENDEZ Location: [place] SERVICE(S) PROVIDED: [facility] - Abdominal Complete Survey - [id number] INDICATIONS: persistant elevated LFTs ------ LIVER: ------ Right Lobe Length: 16.0 cm Echogenicity/Echotexture: Coarse parenchyma GALLBLADDER: Cholelithiasis: No stones visualized Focal Tenderness: Negative sonographic Ortiz's sign BILIARY TRACT: Intrahepatic Ducts: Normal Extrahepatic Ducts: Not visualized --------- PANCREAS: --------- Head: Normal Tail: Poorly visualized due to overlying bowel Body: Normal ------- SPLEEN: ------- Size (cm) L: 8.0 AP: 4.4 TV: 2.4 Vol (ml): 44.9 Comment: limited visualization RIGHT KIDNEY: Size (cm) L: 10.0 AP: 4.1 TV: 4.3 Cortical Thickness: Normal Cortical Echogenicity: Normal Hydronephrosis: No sonographic evidence LEFT KIDNEY: Size (cm) L: 10.0 AP: 6.1 TV: 4.5 Cortical Thickness: Normal Cortical Echogenicity: Normal Hydronephrosis: No sonographic evidence Comment: Limited visualization ------ AORTA: ------ Measurements (cm): Proximal AP: 1.9 Mid AP: 1.8 Comment: Normal in caliber where visualized ---- IVC: ---- Normal in caliber where visualized Impression Limited study due to patient inability to perform breath holds and lie decubitus. Limitations as stated above. No acute findings appreciated. Mild atherosclerotic disease of the aorta. Common bile duct is not identified but there is no abnormal ductal dilatation. No gallstones. Thank you for letting us participate in the care of this patient. For questions regarding this report, please contact the number below. Electronically signed by: KEVIN MONTALVO, [facility] ([phone]), at 05/11/2020 2:50 PM Kevin Montalvo, Staff Physician Electronically Signed Final Report 05/11/2020 02:57 pm WBC Date Value Ref Range Status 05/11/2020 5.6 4.0 - 9.5 x10(3)/mcL Final 05/09/2020 7.5 4.0 - 9.5 x10(3)/mcL Final 05/08/2020 8.4 4.0 - 9.5 x10(3)/mcL Final Hemoglobin Date Value Ref Range Status 05/11/2020 13.4 (L) 13.7 - 16.5 gm/dL Final 05/09/2020 12.9 (L) 13.7 - 16.5 gm/dL Final 05/08/2020 12.6 (L) 13.7 - 16.5 gm/dL Final Hematocrit Date Value Ref Range Status 05/11/2020 40.6 40.5 - 48.5 % Final 05/09/2020 37.8 (L) 40.5 - 48.5 % Final 05/08/2020 37.2 (L) 40.5 - 48.5 % Final MCV Date Value Ref Range Status 05/11/2020 100.5 (H) 82.9 - 93.1 fL Final 05/09/2020 99.0 (H) 82.9 - 93.1 fL Final 05/08/2020 98.9 (H) 82.9 - 93.1 fL Final Platelets Date Value Ref Range Status 05/11/2020 492 (H) 145 - 357 x10(3)/mcL Final 05/09/2020 506 (H) 145 - 357 x10(3)/mcL Final 05/08/2020 468 (H) 145 - 357 x10(3)/mcL Final AST Date Value Ref Range Status 05/12/2020 106 (H) 0 - 39 unit/L Final 05/11/2020 136 (H) 0 - 39 unit/L Final 05/09/2020 73 (H) 0 - 39 unit/L Final ALT Date Value Ref Range Status 05/12/2020 146 (H) 0 - 55 unit/L Final 05/11/2020 164 (H) 0 - 55 unit/L Final 05/09/2020 118 (H) 0 - 55 unit/L Final Alk Phos Date Value Ref Range Status 05/12/2020 104 40 - 130 unit/L Final 05/11/2020 105 40 - 130 unit/L Final 05/09/2020 90 40 - 130 unit/L Final Total Bilirubin Date Value Ref Range Status 05/12/2020 0.6 0.2 - 1.3 mg/dL Final 05/11/2020 0.6 0.2 - 1.3 mg/dL Final 05/09/2020 0.5 0.2 - 1.3 mg/dL Final Bili, Direct Date Value Ref Range Status 05/12/2020 0.2 0.0 - 0.3 mg/dL Final 05/09/2020 0.2 0.0 - 0.3 mg/dL Final 05/09/2020 0.2 0.0 - 0.3 mg/dL Final Albumin Date Value Ref Range Status 05/12/2020 3.5 3.2 - 5.2 gm/dL Final 05/11/2020 3.4 3.2 - 5.2 gm/dL Final 05/09/2020 3.2 3.2 - 5.2 gm/dL Final Total Protein Date Value Ref Range Status 05/12/2020 7.4 6.1 - 8.0 gm/dL Final 05/11/2020 7.4 6.1 - 8.0 gm/dL Final 05/09/2020 6.8 6.1 - 8.0 gm/dL Final PT Date Value Ref Range Status 04/21/2020 12.9 (H) 9.4 - 12.5 sec Final INR Date Value Ref Range Status 04/21/2020 1.1 Final Comment: An INR <2.0 indicates adequate procoagulant activity for hemostasis in most patients without underlying bleeding disorders, though the INR may not adequately reflect hemostatic capacity in patients with liver disease and synthetic impairment. The recommended target INR range for therapeutic anticoagulation is 2.0 - 3.0 for most applications, though lower and higher ranges may be appropriate depending on clinical circumstances. PTT Date Value Ref Range Status 04/21/2020 27 25 - 37 sec Final Comment: The PTT is NOT appropriate for heparin monitoring. Use the Anti-Xa level for heparin monitoring (HEP UFH) or LMWH monitoring (HEP LMW). A PTT less than 37 seconds generally indicates adequate hemostasis. Data Review: Lab Results Component Value Date WBC 5.6 05/11/2020 HGB 13.4 (L) 05/11/2020 HCT 40.6 05/11/2020 MCV 100.5 (H) 05/11/2020 Lab Results Component Value Date NA 135 05/17/2020 K 4.3 05/17/2020 CO2 28 05/17/2020 @BRIEFABLCREATINE@ Lab Results Component Value Date ALT 146 (H) 05/12/2020 AST 106 (H) 05/12/2020 PHOS 2.8 05/09/2020 BILITOT 0.6 05/12/2020 Objective: BP 102/68 (BP Location (NBP): Right arm, Patient Position: Sitting) Pulse 86 Temp 36.6 ??C (97.9 ??F) (Oral) Resp 12 Ht 172.7 cm (5' 8) Wt 54.7 kg (120 lb 8 oz) SpO2 98% BMI 18.32 kg/m?? BP Readings from Last 3 Encounters: 05/18/20 102/68 05/10/20 121/69 Wt Readings from Last 3 Encounters: 05/18/20 54.7 kg (120 lb 8 oz) 05/08/20 53.4 kg (117 lb 11.6 oz) 05/03/20 55.5 kg (122 lb 5.7 oz) Body mass index is 18.32 kg/m??. Assessment and Plan: Mr. Burnett is a cachectic 60 years old patient with a long history of significant unphysiologic lifestyle habits. He is known for chronic hepatitis C at least since 2010. Chronic liver disease may be assumed, certainly not yet decompensated liver cirrhosis based on available information. There is no urgent need for hepatitis C therapy which however shall be considered if patient recovers well from the recent event and he remains alcohol and drug free. Regarding the prior diagnosis of hemochromatosis recommend to check ferritin and iron studies. Thank you for that consultation. * Initial Assessments - Rachele Herrera - 05/13/2020 2:34 PM EDT Office of Care Management Initial Assessment Rachele Herrera reviewed record and discussed patient with Care Team. Source of Information: Chart Review (attemped to see pt but he was unavailable) Introduced self/reviewed role; services accepted. Reason for Hospitalization: Reason for Admission as Stated by Patient: I don't know Past Medical History: Diagnosis Date ??? DVT (deep venous thrombosis) LLE 05/02/2020 ??? ETOH abuse ??? Hemochromatosis ??? Hypertension ??? Intraparenchymal hematoma of brain 05/10/2020 ??? Intraventricular hemorrhage 04/20/2020 Admitted 04/20/2020 @ADDRESSFULL@ Extended Emergency Contact Information Primary Emergency Contact: Susanna Burnett Mobile Relation: Child Right caudate and IVH Antithrombotic stroke prevention N/A Statin therapy N/A Blood Pressure goals/control Glycemic control No results found for: HA1C Smoking/tobacco Social History Tobacco Use Smoking Status Current Every Day Smoker V ??? SIADH (syndrome of inappropriate ADH production) 05/02/2020 2/2 ICH ??? Superficial venous thrombosis of arm, bilateral 05/02/2020 Hospitalizations Within the Past 30 Days: 04/20-05/10 [facility] Anticipated Length Of Stay (If known): Expected Length of Hospitalization: 4 to 6 weeks Current Decision-Making Capacity: Pt has capacity to make decisions related to healthcare at baseline. Advance Care Planning: On file Current Functional Ability: Needs assistance. Functional Status Prior to Admission: Per H&P Max assist to dependent for ADLs. Dependent for bed mobility transfers. Home Environment: Pt lives in [place], [place]. Pt lives in small room in boarding home. He did not use any DME before coming to the hospital (per chart review) Social & Family Supports/Community Resources/Identified primary caregiver: Susanna Burnett (Child) [phone] (M) Yoko Sanchez (Significant) [phone] (M) Hussein Burnett (Child) [phone] (M) Behavioral Health History: Not known Substance Use/Abuse: ETOH abuse per chart. Health/Prescription Coverage: Primary Insurance: MEDICARE Secondary Insurance: MEDICAID [place] Primary Care Provider: None None Patient/Caregiver Goals of Treatment: Return home with home health care services. Potential Needs for Transition of Care: Rehab/SNF: TBD Home Health: TBD DME:TBD Transportation: Check closer to d/c. Assessment: 60 y.o. male who presents to [facility] with left hemiparesis (nondominant) secondary to stroke. Plan: Return home with home health care services. A member of the Care Management team will continue to monitor progress, follow for continuity of care and assist with transition of care planning. Rachele Herrera documented in this encounter Plan of Treatment Not on file documented as of this encounter Procedures Procedure Name Priority Date/Time Associated Diagnosis Comments HC VENIPUNCTURE Routine 05/20/2020 6:57 AM EDT HC FERRITIN, SERUM Routine 05/20/2020 6: 57 AM EDT LAVENDER TUBE HOLD Routine 05/20/2020 6: 57 AM EDT XR FLUORO BARIUM SWALLOW (MODIFIED/VIDEO SWALLOW PHARYNX) Routine 05/17/2020 8:30 AM EDT HC VENIPUNCTURE Routine 05/17/2020 6:54 AM EDT BLUE TUBE HOLD Routine 05/17/2020 6:54 AM EDT LAVENDER TUBE HOLD Routine 05/17/2020 6: 54 AM EDT HC VENIPUNCTURE Routine 05/13/2020 6:26 AM EDT GOLD TUBE HOLD Routine 05/13/2020 6:26 AM EDT LAVENDER TUBE HOLD Routine 05/13/2020 6: 26 AM EDT LAVENDER TUBE HOLD Routine 05/12/2020 6: 50 AM EDT HC AMMONIA, PLASMA Routine 05/12/2020 6: 50 AM EDT HC VENIPUNCTURE Routine 05/12/2020 6:50 AM EDT GOLD TUBE HOLD Routine 05/12/2020 6:50 AM EDT BLUE TUBE HOLD Routine 05/12/2020 6:50 AM EDT LAVENDER TUBE HOLD Routine 05/12/2020 6: 50 AM EDT US ABDOMEN COMPLETE Routine 05/11/2020 2 :30 PM EDT HEMOGRAM Routine 05/11/2020 6:52 AM EDT DIFFERENTIAL, AUTOMATED Routine 05/11/2020 6:52 AM EDT HEPATITIS C ANTIBODY Routine 05/11/2020 6:52 AM EDT HEPATITIS A ANTIBODY, IGM Routine 05/11/2020 6:52 AM EDT HEPATITIS A ANTIBODY, TOTAL Routine 05/11/2020 6:52 AM EDT HEPATITIS B CORE ANTIBODY, TOTAL Routine 05/11/2020 6:52 AM EDT HC VITAMIN D TOTAL-25 HYDROXY Routine 05/11/2020 6:52 AM EDT HEPATITIS B SURFACE ANTIBODY Routine 05/11/2020 6:52 AM EDT HEPATITIS B SURFACE ANTIGEN Routine 05/11/2020 6:52 AM EDT HC VENIPUNCTURE Routine 05/11/2020 6:52 AM EDT HC PREALBUMIN, SERUM Routine 05/11/2020 6:52 AM EDT COMPREHENSIVE METABOLIC PANEL Routine 05/11/2020 6:52 AM EDT BLUE TUBE HOLD Routine 05/11/2020 6:52 AM EDT documented in this encounter Results * (ABNORMAL) Ferritin (05/20/2020 6:57 AM EDT) [facility] Signature Ferritin 637(H) 30 - 400 ng/mL [facility] Comment: Pediatric reference ranges not verified at [facility], interpret with caution. Reference ranges for females greater than 50 years of age approach values for men, i.e., 30-400 ng/mL. Blood specimen (specimen) 05/20/2020 6:57 AM EDT 05/20/2020 7:24 AM EDT Narrative Resulting Agency Comment Spec In Lab Jesse Llamas Jr., MD CHEMISTRY MARZENA PEDRAZA Performing Organization Address [facility] de Phone Number [facility] [address] [place] [address] * (ABNORMAL) Iron and TIBC (05/20/2020 6:57 AM EDT) Iron 101 45 - 160 mcg/dL [facility] TIBC 203(L) 250 - 450 mcg/dL [facility] Iron Saturation 50 20 - 50 % [facility] Blood specimen (specimen) 05/20/2020 6:57 AM EDT 05/20/2020 7:24 AM EDT Narrative Resulting Agency Comment Spec In Lab Jesse Llamas Jr., MD CHEMISTRY MARZENA PEDRAZA Performing Organization Address [facility] de Phone Number [facility] [address] [place] [address] * Lavender Tube HOLD (05/20/2020 6:57 AM EDT) Lavender Hold Sample in lab. [facility] Blood specimen (specimen) Venous Draw / Unknown 05/20/2020 6:57 AM EDT 05/20/2020 9:53 AM EDT Jesse Llamas Jr., MD HEMATOLOGY ORD ERABLES Performing Organization Address [facility] de Phone Number [facility] [address] [place] [address] * XR Fluoro Modified Barium Swallow (05/17/2020 8:30 AM EDT) Anatomical Region Laterality Modality N/A Computed Radiogr aphy Impressions 05/17/2020 10:55 AM EDT No aspiration or penetration. Delayed swallowing and pooling in the vallecula. Signed report Thank you for letting us participate in the care of this patient. For questions regarding this report, please contact the number below. ? Electronically signed by: HUSSEIN TYLER, [facility] ([phone]), at 05/17/2020 10:55 AM Narrative 05/17/2020 10:55 AM EDT EXAMINATION: XR FLUORO MODIFIED BARIUM SWALLOW CLINICAL HISTORY: dysphagia TECHNIQUE: The examination was performed in conjunction with speech pathology. ??Varying consistencies of barium were administered under lateral fluoroscopic observation. Fluoro time: 2 minutes COMPARISON: None FINDINGS: Patient has a delayed oral phase. There is spillage and delayed swallowing present but no aspiration or significant penetration with thin or soft content. Procedure Note Hussein Tyler MD - 05/17/2020 EXAMINATION: XR FLUORO MODIFIED BARIUM SWALLOW CLINICAL HISTORY: dysphagia TECHNIQUE: The examination was performed in conjunction with speech pathology.Varying consistencies of barium were administered under lateral fluoroscopic observation. Fluoro time: 2 minutes COMPARISON: None FINDINGS: Patient has a delayed oral phase. There is spillage and delayedswallowing present but no aspiration or significant penetration with thin or softcontent. IMPRESSION No aspiration or penetration. Delayed swallowing and pooling in the vallecula. Signed report Thank you for letting us participate in the care of this patient. Forquestions regarding this report, please contact the number below. Electronically signed by: HUSSEIN TYLER, [facility]([phone]), at 05/17/2020 10:55 AM Penelope Melendez MD IM FLUORO ORDERABLE S * (ABNORMAL) Basic Metabolic Panel (non-fasting) (05/17/2020 6:54 AM EDT) Glucose 101 65 - 199 mg/dL [facility] Comment:Diabetes: >=200 mg/d L plus symptoms Blood Urea Nitrogen 15 10 - 20 mg/dL [facility] Creatinine 0.65(L) 0.80 - 1.50 mg/dL [facility] Sodium 135 135 - 145 mmol/L [facility] Potassium 4.3 3.5 - 5.0 mmol/L [facility] Comment: Please note: ??Patients with WBC >100,000 may have falsely elevated Potassium levels. ??For accurate Potassium quantification in these patients send serum separator tube (gold top) for subsequent determinations. ??Contact the Clinical Chemistry Laboratory if there are any questions. Chloride 99 98 - 107 mmol/L [facility] Carbon Dioxide 28 22 - 31 mmol/L [facility] Anion Gap 8 5 - 15 mmol/L [facility] Calcium 9.5 8.5 - 10.5 mg/dL [facility] Est Glomerular Filtration Rate 105 >=60 mL/min/1. 73 m?? [facility] Comment: The eGFR was calculated using the CKD-EPI equation. As with all creatinine based estimates of kidney function, eGFR values calculated with the CKD-EPI equation are not accurate in patients with acute kidney failure, extremes of body mass or the acutely ill. [email or web address]/[facility] eGFR 122 >=60 mL/min/1. 73 m?? [facility] Comment: The eGFR was calculated using the CKD-EPI equation. As with all creatinine based estimates of kidney function, eGFR values calculated with the CKD-EPI equation are not accurate in patients with acute kidney failure, extremes of body mass or the acutely ill. http://Jalbum/[facility] Blood specimen (specimen) 05/17/2020 6:54 AM EDT 05/17/2020 7:30 AM EDT Narrative Resulting Agency Comment Spec In Lab Penelope Melendez MD CHEMISTRY ORDERABLES [facility] [address] [place] [address] * Lavender Tube HOLD (05/17/2020 6:54 AM EDT) Lavender Hold Sample in lab. [facility] Blood specimen (specimen) Venous Draw / Unknown 05/17/2020 6:54 AM EDT 05/17/2020 9:24 AM EDT Penelope Melendez MD HEMATOLOGY ORDERABLE S Performing Organization Address [facility] Co de Phone Number [facility] [address] [place] [address] * Blue Tube HOLD (05/17/2020 6:54 AM EDT) Blue Hold Sample in lab. [facility] Blood specimen (specimen) Venous Draw / Unknown 05/17/2020 6:54 AM EDT 05/17/2020 9:25 AM EDT Penelope Melendez MD HEMATOLOGY ORDERABLE S Performing Organization Address [facility] Phone Number [facility] [address] [place] [address] * Hepatitis C RNA, quantitative, PCR (05/13/2020 6:26 AM EDT) HCV Viral Load 769,842 IU/mL [facility] HCV Viral Load Result: [id number] IU/mL Indication for Study: Hepatitis C Infection Analysis: The Francis RealTime HCV assay is an in vitro reverse sand mill operator facing sand polymerase chain reaction (RT-PCR)for the quantitation of hepatitis C viral (HCV) RNA in human serum or plasma (EDTA) from HCV-infected individuals. Sample: plasma (0.7 mL minimum volume) Method: [employer] RealTime HCV Assay Linear Range: 12 IU/mL - 100,000,000IU/mL Note: The [employer] RealTime HCV Assay has been approved by the U.S. Food and Drug Administration. [facility] Comment: [VERIFIED DATE]05.18.20 Verified By:Indira Garcia (Electronic Signature) Blood specimen (specimen) 05/13/2020 6:26 AM EDT 05/17/2020 3:27 PM EDT Narrative Resulting Agency Comment Spec In Lab Penelope Melendez MD MOLECULAR ORDERABLES Performing Organization Address City/[facility] Co de Phone Number [facility] [place] [address] * Lavender Tube HOLD (05/13/2020 6:26 AM EDT) Lavender Hold Sample in lab. [facility] Blood specimen (specimen) No Charge / Unknown 05/13/2020 6:26 AM EDT 05/13/2020 7:32 AM EDT Penelope Melendez MD HEMATOLOGY ORDERABLE S Performing Organization Address City/[facility] Co de Phone Number [facility] [address] [place] [address] * Gold Tube HOLD (05/13/2020 6:26 AM EDT) Gold Hold Sample in lab. [facility] Blood specimen (specimen) Venous Draw / Unknown 05/13/2020 6:26 AM EDT 05/13/2020 7:31 AM EDT Penelope Melendez MD CHEMISTRY ORDERABLES Performing Organization Address [facility] Co de Phone Number [facility] [address] [place] [address] * Lavender Tube HOLD (05/12/2020 6:50 AM EDT) Lavender Hold Sample in lab. [facility] Blood specimen (specimen) Venous Draw / Unknown 05/12/2020 6:50 AM EDT 05/12/2020 6:59 AM EDT Penelope Melendez MD HEMATOLOGY ORDERABLE S Performing Organization Address [facility] Co de Phone Number [facility] [address] [place] [address] * (ABNORMAL) Ammonia (05/12/2020 6:50 AM EDT) Ammonia 14(L) 16 - 60 mcmol/L [facility] Blood specimen (specimen) 05/12/2020 6:50 AM EDT 05/12/2020 6:59 AM EDT Narrative Resulting Agency Comment Spec In Lab Penelope Melendez MD CHEMISTRY ORDERABLES Performing Organization Address [facility] Co de Phone Number [facility] [address] [place] [address] * (ABNORMAL) Hepatic Function Panel (05/12/2020 6:50 AM EDT) Protein, Total 7.4 6.1 - 8.0 gm/dL [facility] Albumin 3.5 3.2 - 5.2 gm/dL [facility] Aspartate Aminotransferase 106(H) 0 - 39 unit/L [facility] Alanine Aminotransferase 146(H) 0 - 55 unit/L [facility] Alkaline Phosphatase 104 40 - 130 unit/L [facility] Bilirubin, Total 0.6 0.2 - 1.3 mg/dL [facility] Bilirubin, Direct 0.2 0.0 - 0.3 mg/dL [facility] Blood specimen (specimen) 05/12/2020 6:50 AM EDT 05/12/2020 6:59 AM EDT Narrative Resulting Agency Comment Spec In Lab Penelope Melendez MD CHEMISTRY ORDERABLES Performing Organization Address [facility] Co de Phone Number [facility] [address] [place] [address] * Lavender Tube HOLD (05/12/2020 6:50 AM EDT) Lavender Hold Sample in lab. [facility] Blood specimen (specimen) No Charge / Unknown 05/12/2020 6:50 AM EDT 05/12/2020 7:11 AM EDT Penelope Melendez MD HEMATOLOGY ORDERABLE S Performing Organization Address [facility] Co de Phone Number [facility] [address] [place] [address] * Gold Tube HOLD (05/12/2020 6:50 AM EDT) Gold Hold Sample in lab. [facility] Blood specimen (specimen) Venous Draw / Unknown 05/12/2020 6:50 AM EDT 05/12/2020 7:08 AM EDT Penelope Melendez MD CHEMISTRY ORDERABLES Performing Organization Address [facility] Co de Phone Number [facility] [address] [place] [address] * Blue Tube HOLD (05/12/2020 6:50 AM EDT) Blue Hold Sample in lab. [facility] Blood specimen (specimen) Venous Draw / Unknown 05/12/2020 6:50 AM EDT 05/12/2020 7:08 AM EDT Penelope Melendez MD HEMATOLOGY ORDERABLE S Performing Organization Address [facility] Phone Number [facility] [address] [place] [address] * US Abdomen Complete (05/11/2020 2:30 PM EDT) Anatomical Region Laterality Modality Abdomen, Vascular Ultrasound 05/11/2020 2:27 PM EDT Impressions 05/11/2020 2:58 PM EDT ?? Limited study due to patient inability to perform breath holds and lie decubitus. Limitations as stated above. No acute findings appreciated. Mild atherosclerotic disease of the aorta. Common bile duct is not identified but there is no abnormal ductal dilatation. No gallstones. Thank you for letting us participate in the care of this patient. For questions regarding this report, please contact the number below. Electronically signed by: KEVIN MONTALVO, [facility] ([phone]), at 05/11/2020 2:50 PM ? Kevin Montalvo, Staff Physician Electronically Signed Final Report ?? 05/11/2020 02:57 pm Narrative 05/11/2020 2:58 PM EDT Abdominal ? (Signed Final 05/11/2020 02:57 pm) PATIENT INFO: ID #: ? [id number] ?: ??[birth year] (60 yrs)(M) Name: ? YARITZA Ceja BURNETT ? Visit Date: 05/11/2020 02:27 pm PERFORMED BY: Performed By: ? Bailey Zaragoza RDMS Attending: ?Asad CORTES, Kevin Fox Referred By: ?PENELOPE MELENDEZ Location: ? [place] SERVICE(S) PROVIDED: ??UABD - Abdominal Complete Survey - [id number] INDICATIONS: ??persistant elevated LFTs ------ LIVER: ------ Right Lobe Length: ?? 16.0 ?? cm Echogenicity/Echotexture: ?? Coarse parenchyma GALLBLADDER: Cholelithiasis: ?No stones visualized Focal Tenderness: ?Negative sonographic Ortiz's sign BILIARY TRACT: Intrahepatic Ducts: ?? Normal Extrahepatic Ducts: ?? Not visualized --------- PANCREAS: --------- Head: ? Normal Tail: ? Poorly visualized due to overlying bowel Body: ? Normal ------- SPLEEN: ------- Size (cm) ?L: ??8.0 ? AP: ??4.4 ? TV: ??2.4 Vol (ml): ?44.9 Comment: ?limited visualization RIGHT KIDNEY: Size (cm) ?L: ??10.0 ?AP: ??4.1 ? TV: ??4.3 Cortical Thickness: ?Normal Cortical Echogenicity: ?? Normal Hydronephrosis: ?No sonographic evidence LEFT KIDNEY: Size (cm) ?L: ??10.0 ?AP: ??6.1 ? TV: ??4.5 Cortical Thickness: ?Normal Cortical Echogenicity: ?? Normal Hydronephrosis: ?No sonographic evidence Comment: ?Limited visualization ------ AORTA: ------ Measurements (cm): Proximal ? AP: ?? 1.9 Mid ?AP: ?? 1.8 Comment: ?Normal in caliber where visualized ---- IVC: ---- Normal in caliber where visualized Procedure Note Kevin Montalvo MD - 05/11/2020 Abdominal (Signed Final 05/11/2020 02:57 pm) PATIENT INFO: ID #: [id number] : [birth year] (60 yrs)(M) Name: YARITZA BURNETT Visit Date: 05/11/2020 02:27 pm PERFORMED BY: Performed By: Bailey Zaragoza RDMS Attending: Kevin Montalvo MD Referred By: PENELOPE MELENDEZ Location: [facility] SERVICE(S) PROVIDED: [facility] - Abdominal Complete Survey - [id number] INDICATIONS: persistant elevated LFTs ------ LIVER: ------ Right Lobe Length: 16.0 cm Echogenicity/Echotexture: Coarse parenchyma GALLBLADDER: Cholelithiasis: No stones visualized Focal Tenderness: Negative sonographic Otriz's sign BILIARY TRACT: Intrahepatic Ducts: Normal Extrahepatic Ducts: Not visualized --------- PANCREAS: --------- Head: Normal Tail: Poorly visualized due to overlying bowel Body: Normal ------- SPLEEN: ------- Size (cm) L: 8.0 AP: 4.4 TV: 2.4 Vol (ml): 44.9 Comment: limited visualization RIGHT KIDNEY: Size (cm) L: 10.0 AP: 4.1 TV: 4.3 Cortical Thickness: Normal Cortical Echogenicity: Normal Hydronephrosis: No sonographic evidence LEFT KIDNEY: Size (cm) L: 10.0 AP: 6.1 TV: 4.5 Cortical Thickness: Normal Cortical Echogenicity: Normal Hydronephrosis: No sonographic evidence Comment: Limited visualization ------ AORTA: ------ Measurements (cm): Proximal AP: 1.9 Mid AP: 1.8 Comment: Normal in caliber where visualized ---- IVC: ---- Normal in caliber where visualized IMPRESSION Limited study due to patient inability to perform breath holds and lie decubitus. Limitations as stated above. No acute findings appreciated. Mild atherosclerotic disease of the aorta. Common bile duct is not identified but there is no abnormal ductal dilatation. No gallstones. Thank you for letting us participate in the care of this patient. For questions regarding this report, please contact the number below. Electronically signed by: KEVIN MONTALVO, [facility] ([phone]), at 05/11/2020 2:50 PM Kevin Montalvo, Staff Physician Electronically Signed Final Report 05/11/2020 02:57 pm Penelope Melendez MD [facility] GEN ORDERABLE S * (ABNORMAL) Hepatitis A Antibody, Total (05/11/2020 6:52 AM EDT) Hepatitis A ANTIBODY, TOTAL Positive(A ) Negative [facility] Blood specimen (specimen) Venous Draw / Unknown 05/11/2020 6:52 AM EDT 05/11/2020 7:12 AM EDT Narrative Resulting Agency Comment Spec In Lab Penelope Melendez MD CHEMISTRY ORDERABLES Performing Organization Address [facility] Co de Phone Number [facility] [address] [place] [address] * (ABNORMAL) Hepatitis C Antibody (05/11/2020 6:52 AM EDT) Hepatitis C Antibody Positive(A ) Negative [facility] Blood specimen (specimen) Venous Draw / Unknown 05/11/2020 6:52 AM EDT 05/11/2020 7:12 AM EDT Narrative Resulting Agency Comment Spec In Lab Penelope Melendez MD CHEMISTRY ORDERABLES Performing Organization Address [facility] Co de Phone Number [facility] [address] [place] [address] * Hepatitis B Core Antibody, Total (05/11/2020 6:52 AM EDT) Hepatitis B Core Antibody Negative Negative [facility] Blood specimen (specimen) Venous Draw / Unknown 05/11/2020 6:52 AM EDT 05/11/2020 7:12 AM EDT Narrative Resulting Agency Comment Spec In Lab Penelope Melendez MD CHEMISTRY ORDERABLES Performing Organization Address [facility] Phone Number [facility] [address] [place] [address] * Hepatitis B Surface Antigen (05/11/2020 6:52 AM EDT) Hepatitis B Surface Antigen Negative Negative [facility] Blood specimen (specimen) Venous Draw / Unknown 05/11/2020 6:52 AM EDT 05/11/2020 7:12 AM EDT Narrative Resulting Agency Comment Spec In Lab Penelope Melendez MD CHEMISTRY ORDERABLES Performing Organization Address [facility] [address] [place] [address] * Hepatitis B Surface Antibody (05/11/2020 6:52 AM EDT) Hepatitis B Surface Antibody, Quantitative <3.5 IU/L [facility] Comment: HepB Surface Ab Quant: Unvaccinated: < 8.5 IU/L Vaccinated: > 11.5 IU/L Hepatitis B Surface Antibody Negative [facility] Comment: Patient is presumed to be not vaccinated or immune to HBV infection. Expected Results: Vaccinated: Positive Unvaccinated: Negative Blood specimen (specimen) Venous Draw / Unknown 05/11/2020 6:52 AM EDT 05/11/2020 7:12 AM EDT Narrative Resulting Agency Comment Spec In Lab Penelope Melendez MD CHEMISTRY ORDERABLES Performing Organization Address [facility] [address] [place] [address] * Hepatitis A Antibody, IgM (05/11/2020 6:52 AM EDT) Hepatitis A Antibody, IgM Negative Negative [facility] Blood specimen (specimen) Venous Draw / Unknown 05/11/2020 6:52 AM EDT 05/11/2020 7:12 AM EDT Narrative Resulting Agency Comment Spec In Lab Penelope Melendez MD CHEMISTRY ORDERABLES [facility] [address] [place] [address] * Differential, Automated (05/11/2020 6:52 AM EDT) Pathologist [facility] Neutrophil % 47.8 % [facility] Neutrophil Absolute 2.70 1.70 - 6.10 x10(3)/[facility] Lymph % 34.5 % [facility] Lymphocytes Abs 2.0 0.9 - 3.2 x10(3)/[facility] Monocyte % 14.5 % [facility] Monocyte Abs 0.8 0.3 - 0.9 x10(3)/[facility] Eos % 2.3 % [facility] Eosinophils Abs 0.1 0.0 - 0.4 x10(3)/[facility] Basophil % 0.5 % [facility] Baso Absolute 0.0 0.0 - 0.1 x10(3)/[facility] Immature Gran % 0.40 % [facility] Comment: Immature granulocytes(IG's)percentage and absolute count will include metamyelocytes, myelocytes, and promyelocytes. Blood smears from CBCs yielding IG's will be scanned manually for concordance. If this scan disagrees with the automated IG or if promyelocytes are noted, a manual differential will be performed. Immature Gran Absolute 0.02 0.00 - 0.04 x10(3)/[facility] Blood specimen (specimen) 05/11/2020 6:52 AM EDT 05/11/2020 7:12 AM EDT Narrative Resulting Agency Comment Spec In Lab Penelope Melendez MD HEMATOLOGY ORDERABLE S Performing Organization Address City/[facility]/ZIP Co de Phone Number [facility] [address] [place] [address] * (ABNORMAL) Hemogram (05/11/2020 6:52 AM EDT) White Blood Cell 5.6 4.0 - 9.5 x10(3)/mc L [facility] Red Blood Cell 4.04(L) 4.58 - 5.54 x10(6)/mc L [facility] Hemoglobin 13.4(L) 13.7 - 16.5 gm/dL [facility] Hematocrit 40.6 40.5 - 48.5 % [facility] Mean Cell Volume 100.5(H) 82.9 - 93.1 fL [facility] Mean Cell Hemoglobin 33.2(H) 27.5 - 32.1 pg [facility] Mean Cell Hemoglobin Concentration 33.0 32.0 - 35.7 gm/dL [facility] Platelet 492(H) 145 - 357 x10(3)/mc L [facility] RDW Standard Deviation 49.6(H) 36.0 - 45.0 fL [facility] RDW coefficient of variation 13.7 11.4 - 13.8 % [facility] Mean Platelet Volume 9.1 7.6 - 12.9 fL [facility] NRBC% auto 0.0 % [facility] NRBC Absolute 0.000 0.000 - 0.000 x10(3)/mc L [facility] Blood specimen (specimen) 05/11/2020 6:52 AM EDT 05/11/2020 7:12 AM EDT Narrative Resulting Agency Comment Spec In Lab Penelope Melendez MD HEMATOLOGY ORDERABLE S Performing Organization Address City/[facility]/ZIP Co de Phone Number [facility] [address] [place] [address] * (ABNORMAL) Prealbumin (05/11/2020 6:52 AM EDT) Prealbumin 17(L) 20 - 40 mg/dL [facility] Comment: Prealbumin levels are generally lower in the pediatric population; adult concentrations are usually attained near puberty. Blood specimen (specimen) 05/11/2020 6:52 AM EDT 05/11/2020 7:12 AM EDT Narrative Resulting Agency Comment Spec In Lab Penelope Melendez MD CHEMISTRY ORDERABLES Performing Organization Address [facility] de Phone Number [facility] [address] [place] [address] * Vitamin D, 25-Hydroxy (05/11/2020 6:52 AM EDT) Pathologist [facility] [place] Vitamin D Total 25 OH 24 21 - 100 ng/mL [facility] Comment: Please note, effective March 27, 2020, additional result field for Vitamin D Interpretation, and updated flagging notification. Vit D Interp Insufficient [facility] Blood specimen (specimen) 05/11/2020 6:52 AM EDT 05/11/2020 7:12 AM EDT Narrative Resulting Agency Comment Spec In Lab Penelope Melendez MD CHEMISTRY ORDERABLES Performing Organization Address [facility] Phone Number [facility] [address] [place] [address] * (ABNORMAL) Comprehensive metabolic panel (non-fasting) (05/11/2020 6:52 AM EDT) Glucose 105 65 - 199 mg/dL [facility] Comment:Diabetes: >=200 mg/d L plus symptoms Blood Urea Nitrogen 19 10 - 20 mg/dL [facility] Creatinine 0.52(L) 0.80 - 1.50 mg/dL [facility] Sodium 134(L) 135 - 145 mmol/L [facility] Potassium 3.6 3.5 - 5.0 mmol/L [facility] Comment: Please note: ??Patients with WBC >100,000 may have falsely elevated Potassium levels. ??For accurate Potassium quantification in these patients send serum separator tube (gold top) for subsequent determinations. ??Contact the Clinical Chemistry Laboratory if there are any questions. Chloride 100 98 - 107 mmol/L [facility] Carbon Dioxide 22 22 - 31 mmol/L [facility] Anion Gap 12 5 - 15 mmol/L [facility] Calcium 8.9 8.5 - 10.5 mg/dL [facility] Protein, Total 7.4 6.1 - 8.0 gm/dL [facility] Albumin 3.4 3.2 - 5.2 gm/dL [facility] Aspartate Aminotransferase 136(H) 0 - 39 unit/L [facility] Alanine Aminotransferase 164(H) 0 - 55 unit/L [facility] Alkaline Phosphatase 105 40 - 130 unit/L [facility] Bilirubin, Total 0.6 0.2 - 1.3 mg/dL [facility] Est Glomerular Filtration Rate 115 >=60 mL/min/1. 73 m?? [facility] Comment: The eGFR was calculated using the CKD-EPI equation. As with all creatinine based estimates of kidney function, eGFR values calculated with the CKD-EPI equation are not accurate in patients with acute kidney failure, extremes of body mass or the acutely ill. [email or web address] CITYnkf eGFR 133 >=60 mL/min/1. 73 m?? [facility] Comment: The eGFR was calculated using the CKD-EPI equation. As with all creatinine based estimates of kidney function, eGFR values calculated with the CKD-EPI equation are not accurate in patients with acute kidney failure, extremes of body mass or the acutely ill. [email or web address] Blood specimen (specimen) 05/11/2020 6:52 AM EDT 05/11/2020 7:12 AM EDT Narrative Resulting Agency Comment Spec In Lab Penelope Melendez MD CHEMISTRY ORDERABLES [facility] [address] [place] [address] * Blue Tube HOLD (05/11/2020 6:52 AM EDT) Blue Hold Sample in lab. [facility] Blood specimen (specimen) Venous Draw / Unknown 05/11/2020 6:52 AM EDT 05/11/2020 7:53 AM EDT Penelope Melendez MD HEMATOLOGY ORDERABLE S [facility] [address] [place] [address] documented in this encounter Visit Diagnoses Diagnosis Chronic hepatitis C without hepatic coma Intraventricular hemorrhage Intracerebral hemorrhage Hypertension, unspecified type Hemiparesis of left nondominant side due to cerebrovascular disease Intraventricular hemorrhage Intracerebral hemorrhage Intraparenchymal hematoma of brain Dysphagia due to recent cerebrovascular accident Dysphagia, late effect of cerebrovascular disease SIADH (syndrome of inappropriate ADH production) Other disorders of neurohypophysis Hypertension Unspecified essential hypertension DVT (deep venous thrombosis) LLE Acute venous embolism and thrombosis of unspecified deep vessels of lower extremity Superficial venous thrombosis of arm, bilateral Hemiparesis of left nondominant side due to cerebrovascular disease Hepatitis C virus infection without hepatic coma documented in this encounter Admitting Diagnoses Diagnosis Hemiparesis of left nondominant side due to cerebrovascular disease documented in this encounter Administered Medications Inactive Administered Medications - up to 3 most recent administrations Medication Order MAR Action Action Date Dose Rate Site acetaminophen (Tylenol) tablet 487.5 mg 487.5 mg (rounded from 500 mg), Oral, EVERY 6 HOURS PRN, Starting on Wed05/10/20 at 1624, Until Wed05/31/20 at 1750, Pain, Maximum dose of acetaminophen is 4000 mg from all sources in 24 hours., Routine Given 05/29/2020 8:32 PM EDT 487.5 mg Given 05/29/2020 9:46 AM EDT 487.5 mg Given 05/28/2020 6:51 PM EDT 487.5 mg amLODIPine (Norvasc) tablet 10 mg 10 mg, Oral, DAILY, First dose on 05/11/20 at 0900, Until Discontinued, Hold for Systolic Blood Pressure less than 100 or Heart Rate less than 50, Routine Given 05/15/2020 9:00 AM EDT 10 mg Given 05/12/2020 9:14 AM EDT 10 mg Given 05/11/2020 9:10 AM EDT 10 mg amLODIPine (Norvasc) tablet 10 mg 10 mg, Oral, DAILY, First dose on [place] 05/30/20 at 1315, Until Discontinued, Hold for Systolic bBP LESS than 100 OR Heart rate less than 50., Routine Given 05/30/2020 2:08 PM EDT 10 mg amLODIPine (Norvasc) tablet 5 mg 5 mg, Oral, DAILY, First dose (after last modification) on Wed05/17/20 at 1045, Until Discontinued, Hold for Systolic Blood Pressure less than 100 or Heart Rate less than 50, Routine Given 05/20/2020 9:32 AM EDT 5 mg Given 05/19/2020 9:22 AM EDT 5 mg Given 05/18/2020 9:14 AM EDT 5 mg amLODIPine (Norvasc) tablet 5 mg 5 mg, Oral, DAILY, First dose (after last modification) on 06/01/20 at 0900, Until Discontinued, Hold for Systolic bBP LESS than 100 OR Heart rate less than 50., Routine docusate sodium (Colace) capsule 100 mg 100 mg, Oral, 2 TIMES DAILY, First dose on Wed05/10/20 at 2100, Until Discontinued, Routine Given 05/14/2020 9:01 PM EDT 100 mg Given 05/14/2020 8:14 AM EDT 100 mg Given 05/13/2020 9:31 PM EDT 100 mg docusate sodium (Colace) capsule 100 mg 100 mg, Oral, 2 TIMES DAILY PRN, Starting on Wed05/15/20 at 1400, Until Wed05/31/20 at 1750, Constipation, Routine Given 05/28/2020 3:21 PM EDT 100 mg enoxaparin (LOVENOX) injection 40 mg 40 mg, Subcutaneous, NIGHTLY, First dose (after last modification) on Wed05/10/20 at 2100, Until Discontinued, Routine Given 05/28/2020 8:09 PM EDT 40 mg Given 05/27/2020 8:07 PM EDT 40 mg Given 05/26/2020 8:27 PM EDT 40 mg famotidine (Pepcid) tablet 40 mg 40 mg, Oral, DAILY, First dose on 05/11/20 at 0900, Until Discontinued, Routine Given 05/31/2020 10:09 AM EDT 40 mg Given 05/30/2020 10:05 AM EDT 40 mg Given 05/29/2020 9:44 AM EDT 40 mg folic acid (Folvite) tablet 1,000 mcg 1,000 mcg (1 mg), Oral, DAILY, First dose on 05/11/20 at 0900, Until Discontinued, Routine Given 05/31/2020 9:17 AM EDT 1,000 mcg Given 05/30/2020 10:05 AM EDT 1,000 mcg Given 05/29/2020 9:44 AM EDT 1,000 mcg lisinopriL (Prinivil;Zestril) tablet 20 mg 20 mg, Oral, DAILY, First dose (after last modification) on Wed05/17/20 at 1045, Until Discontinued, Hold for Systolic Blood Pressure less than 100, Routine Given 05/20/2020 9:31 AM EDT 20 mg Given 05/19/2020 9:23 AM EDT 20 mg Given 05/18/2020 9:13 AM EDT 20 mg lisinopriL (Prinivil;Zestril) tablet 40 mg 40 mg, Oral, DAILY, First dose on Wed05/11/20 at 0900, Until Discontinued, Hold for Systolic Blood Pressure less than 100, Routine Given 05/15/2020 9:02 AM EDT 40 mg Given 05/12/2020 9:14 AM EDT 40 mg Given 05/11/2020 9:11 AM EDT 40 mg modafiniL (Provigil) tablet 100 mg 100 mg, Oral, 2 TIMES DAILY, First dose on 05/11/20 at 0700, Until Discontinued, Routine Given 05/15/2020 12:09 PM EDT 100 mg Given 05/15/2020 6:40 AM EDT 100 mg Given 05/14/2020 11:23 AM EDT 100 mg multivitamin with minerals (THERA-M) tablet 1 tablet 1 tablet, Oral, DAILY, First dose on 05/11/20 at 0900, Until Discontinued, Routine Given 05/31/2020 9:17 AM EDT 1 tablet Given 05/30/2020 10:05 AM EDT 1 tablet Given 05/29/2020 9:44 AM EDT 1 tablet naloxone (NARCAN) injection 0.2 mg 0.2 mg, Intravenous, EVERY 2 MIN PRN, Starting on Wed05/10/20 at 1623, Until Wed05/31/20 at 1750, Opioid Reversal, Naloxone (NARCAN) 0.2 mg = 0.2 mL Intravenous PRN RESP RATE <10 OR SEDATION >/=3, Clinician Dir. IF PATIENT ON OPIOIDS NEEDED FOR RESPIRATORY RATE LESS THAN 10 OR PARSECO 4 OR MINIMALLY RESPONSIVE TO VERBAL OR PHYSICAL STIMULATION, Routine naloxone (NARCAN) injection 1 mg/mL 2 mg 2 mg, Intra-nasally with adaptor , EVERY 2 MIN PRN, Starting on Wed05/10/20 at 1623, Until Wed05/31/20 at 1750, Opioid Reversal, naloxone (NARCAN) 2 mg = 2 mL Nasally PRN RESP < 10/SEDATATION SCALE >/=3,Clinician Dir IF ON AN OPIOID naloxone (NARCAN) 0.2 mg IV PRN RESP RATE <10 OR PASERO 4, Routine nicotine (NICODERM CQ) 21 mg/24 hr patch 21 mg 21 mg (1 patch), Transdermal, DAILY, First dose on Wed05/22/20 at 0900, Until Discontinued, Routine Patch Applied 05/31/2020 9:16 AM EDT 21 mg 04- Shoulder (Right) Patch Applied 05/30/2020 10:05 AM EDT 21 mg 06- Back Upper (Right) Patch Applied 05/29/2020 9:44 AM EDT 21 mg 03- Shoulder (Left) nicotine (NICODERM CQ) 21 mg/24 hr patch Patch Removal Transdermal, NIGHTLY, First dose on Wed05/22/20 at 1745, Until Discontinued, Remove nicotine 21 mg/24 hr patch nicotine (NICODERM CQ) 21 mg/24 hr patch Patch Verification Transdermal, 2 TIMES DAILY, First dose on Wed05/22/20 at 0545, Until Discontinued, Verify nicotine 21 mg/24 hr patch senna (Senokot) tablet 17.2 mg 17.2 mg, Oral, NIGHTLY, First dose on Wed05/10/20 at 2100, Until Discontinued, Routine Given 05/14/2020 9:01 PM EDT 17.2 mg Given 05/13/2020 9:25 PM EDT 17.2 mg Given 05/12/2020 8:21 PM EDT 17.2 mg senna (Senokot) tablet 17.2 mg 17.2 mg, Oral, NIGHTLY PRN, Starting on Wed05/15/20 at 1400, Until Wed05/31/20 at 1750, Constipation, Routine thiamine (Vitamin B1) tablet 100 mg 100 mg, Oral, DAILY, First dose on 05/11/20 at 0900, Until Discontinued, Routine Given 05/31/2020 9:17 AM EDT 100 mg Given 05/30/2020 10:06 AM EDT 100 mg Given 05/29/2020 9:44 AM EDT 100 mg documented in this encounter Active and Recently Administered Medications Times are shown in EDT. Scheduled Medication Order 05/29/2020 05/30/2020 05/31/2020 amLODIPine (Norvasc) tablet 10 mg (CANCELED) 10 mg, Oral, DAILY, First dose on [place] 05/30/20 at 1315, Until Discontinued, Hold for Systolic bBP LESS than 100 OR Heart rate less than 50., Routine 1408 (Given - Provider: Jennifer Giles RN) 0900 (Not Given - Provider: Jessica Garcia RN - Reason: Order parameters not met) amLODIPine (Norvasc) tablet 5 mg 5 mg, Oral, DAILY, First dose (after last modification) on 06/01/20 at 0900, Until Discontinued, Hold for Systolic bBP LESS than 100 OR Heart rate less than 50., Routine famotidine (Pepcid) tablet 40 mg 40 mg, Oral, DAILY, First dose on 05/11/20 at 0900, Until Discontinued, Routine 0944 (Given - Provider: Jennifer Giles RN) 1005 (Given - Provider: Slime Bishop RN) 1009 (Given - Provider: Jessica Garcia RN - Comment: medication not avail) folic acid (Folvite) tablet 1,000 mcg 1,000 mcg (1 mg), Oral, DAILY, First dose on 05/11/20 at 0900, Until Discontinued, Routine 0944 (Given - Provider: Jennifer Giles RN) 1005 (Given - Provider: Slime Bishop RN) 0917 (Given - Provider: Jessica Garcia RN) multivitamin with minerals (THERA-M) tablet 1 tablet 1 tablet, Oral, DAILY, First dose on 05/11/20 at 0900, Until Discontinued, Routine 0944 (Given - Provider: Jennifer Giles RN) 1005 (Given - Provider: Slime Bishop RN) 0917 (Given - Provider: Jessica Garcia RN) nicotine (NICODERM CQ) 21 mg/24 hr patch 21 mg(Linked Group 1) 21 mg (1 patch), Transdermal, DAILY, First dose on Wed05/22/20 at 0900, Until Discontinued, Routine 0944 (Patch Applied - Provider: Jennifer Giles RN) 1005 (Patch Applied - Provider: Slime Bishop RN) 0916 (Patch Applied - Provider: Jessica Garcia RN) nicotine (NICODERM CQ) 21 mg/24 hr patch Patch Removal(Linked Group 1) Transdermal, NIGHTLY, First dose on Wed05/22/20 at 1745, Until Discontinued, Remove nicotine 21 mg/24 hr patch 2100 (Patch Removed - Provider: Jessica Wilder RN) 2099 (Patch Removed - Provider: Sheryl Singh RN) nicotine (NICODERM CQ) 21 mg/24 hr patch Patch Verification(Linked Group 1) Transdermal, 2 TIMES DAILY, First dose on Wed05/22/20 at 0545, Until Discontinued, Verify nicotine 21 mg/24 hr patch 0900 (Patch (dose and location) verified - Provider: Jennifer Giles RN)2099 (Patch (dose and location) verified - Provider: Jessica Wilder RN) 09 (Patch (dose and location) verified - Provider: Slime Bishop RN)2099 (Patch (dose and location) verified - Provider: Sheryl Singh RN) 09 (Patch (dose and location) verified - Provider: Jessica Garcia RN) thiamine (Vitamin B1) tablet 100 mg 100 mg, Oral, DAILY, First dose on Wed05/11/20 at 0900, Until Discontinued, Routine 0944 (Given - Provider: Jennifer Giles RN) 1006 (Given - Provider: Slime Bishop RN) 0917 (Given - Provider: Jessica Garcia RN) PRN Medication Order 05/29/2020 05/30/2020 05/31/2020 acetaminophen (Tylenol) tablet 487.5 mg 487.5 mg (rounded from 500 mg), Oral, EVERY 6 HOURS PRN, Starting on Wed05/10/20 at 1624, Until Wed05/31/20 at 1750, Pain, Maximum dose of acetaminophen is 4000 mg from all sources in 24 hours., Routine 945 (Given - Provider: Jennifer Giles RN)2031 (Given - Provider: Jessica Wilder RN - Comment: headache) alum-mag hydroxide-simeth (Maalox) (40 mg-40 mg-4 mg/mL) oral liquid 30 mL 30 mL, Oral, EVERY 4 HOURS PRN, Starting on Wed05/10/20 at 1623, Until Wed05/31/20 at 1750, Heartburn, Indigestion, Routine bisacodyL (Dulcolax) suppository 10 mg 10 mg, Rectal, DAILY PRN, Starting on Wed05/10/20 at 1623, Until Wed05/31/20 at 1750, Constipation, Administer if needed per patient's routine or if no bowel movement within 48 hours to achieve: 1) One bowel movement at least every 48 hours, AND 2) Without straining., Routine bisacodyl EC (Dulcolax) tablet 10 mg 10 mg, Oral, DAILY PRN, Starting on Wed05/10/20 at 1623, Until Wed05/31/20 at 1750, Constipation, Administer if needed per patient's routine or if no bowel movement within 48 hours to achieve: 1) One bowel movement at least every 48 hours, AND 2) Without straining., Routine docusate sodium (Colace) capsule 100 mg 100 mg, Oral, 2 TIMES DAILY PRN, Starting on Wed05/15/20 at 1400, Until Wed05/31/20 at 1750, Constipation, Routine naloxone (NARCAN) injection 0.2 mg(Linked Group 2) 0.2 mg, Intravenous, EVERY 2 MIN PRN, Starting on Wed05/10/20 at 1623, Until Wed05/31/20 at 1750, Opioid Reversal, Naloxone (NARCAN) 0.2 mg = 0.2 mL Intravenous PRN RESP RATE <10 OR SEDATION >/=3, Clinician Dir. IF PATIENT ON OPIOIDS NEEDED FOR RESPIRATORY RATE LESS THAN 10 OR PARSECO 4 OR MINIMALLY RESPONSIVE TO VERBAL OR PHYSICAL STIMULATION, Routine naloxone (NARCAN) injection 1 mg/mL 2 mg(Linked Group 2) 2 mg, Intra-nasally with adaptor , EVERY 2 MIN PRN, Starting on Wed05/10/20 at 1623, Until Wed05/31/20 at 1750, Opioid Reversal, naloxone (NARCAN) 2 mg = 2 mL Nasally PRN RESP < 10/SEDATATION SCALE >/=3,Clinician Dir IF ON AN OPIOID naloxone (NARCAN) 0.2 mg IV PRN RESP RATE <10 OR PASERO 4, Routine senna (Senokot) tablet 17.2 mg 17.2 mg, Oral, NIGHTLY PRN, Starting on Wed05/15/20 at 1400, Until Wed05/31/20 at 1750, Constipation, Routine Linked Groups Order Group 1: nicotine (NICODERM CQ) 21 mg/24 hr patch 21 mgJump to med 21 mg (1 patch), Transdermal, DAILY, First dose on Wed05/22/20 at 0900, Until Discontinued, Routine And nicotine (NICODERM CQ) 21 mg/24 hr patch Patch VerificationJump to med Transdermal, 2 TIMES DAILY, First dose on Wed05/22/20 at 0545, Until Discontinued, Verify nicotine 21 mg/24 hr patch And nicotine (NICODERM CQ) 21 mg/24 hr patch Patch RemovalJump to med Transdermal, NIGHTLY, First dose on Wed05/22/20 at 1745, Until Discontinued, Remove nicotine 21 mg/24 hr patch Group 2: naloxone (NARCAN) injection 1 mg/mL 2 mgJump to med 2 mg, Intra-nasally with adaptor , EVERY 2 MIN PRN, Starting on Wed05/10/20 at 1623, Until Wed05/31/20 at 1750, Opioid Reversal, naloxone (NARCAN) 2 mg = 2 mL Nasally PRN RESP < 10/SEDATATION SCALE >/=3,Clinician Dir IF ON AN OPIOID naloxone (NARCAN) 0.2 mg IV PRN RESP RATE <10 OR PASERO 4, Routine Or naloxone (NARCAN) injection 0.2 mgJump to med 0.2 mg, Intravenous, EVERY 2 MIN PRN, Starting on Wed05/10/20 at 1623, Until Wed05/31/20 at 1750, Opioid Reversal, Naloxone (NARCAN) 0.2 mg = 0.2 mL Intravenous PRN RESP RATE <10 OR SEDATION >/=3, Clinician Dir. IF PATIENT ON OPIOIDS NEEDED FOR RESPIRATORY RATE LESS THAN 10 OR PARSECO 4 OR MINIMALLY RESPONSIVE TO VERBAL OR PHYSICAL STIMULATION, Routine documented in this encounter Additional Health Concerns Infection Onset Date Last Indicated Resolved Time Rule Out Hepatitis A 05/11/2020 05/11/2020 020 11:41 AM EDT documented as of this encounter Care Teams [employer] Relationship 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
--- OUTSIDE RECORDS SUMMARY | 2024-07-28 22:42 | XMS_ITS | Clinical Summary ---
Author Organization [facility] [place] [address] Care Team Providers Care Welding Engineer Name Role Phone Andrea Coker DNP Primary Care Provider [phone] Allergies No known active allergies Medications Medication Sig Dispensed Refills Start Date End Date Status famotidine (Pepcid) 40 mg Tablet Take 1 tablet by mouth daily. 30 tablet 05/31/2020 Active folic acid (Folvite) 1 mg Tablet Take 1 tablet by mouth daily. 30 tablet 05/31/2020 Active thiamine (Vitamin B1) Take 1 tablet by mouth daily. 30 tablet 05/31/2020 Active multivitamin with minerals (THERA-M) 9 mg iron-400 mcg Tablet Take 1 tablet by mouth daily. 05/31/2020 Active amLODIPine (Norvasc) 5 mg Tablet Take 1 tablet by mouth daily. 30 tablet 06/01/2020 Active nicotine (NICODERM CQ) 21 mg/24 hr Patch 24 hr Change 1 patch on the skin daily. 28 patch 06/01/2020 Active Active Problems Problem Noted Date Diagnosed Date Hepatitis C virus infection without hepatic coma 05/31/2020 Intraparenchymal hematoma of brain 05/10/2020 Hypertension 05/10/2020 Hemiparesis of left nondomin ant side due to cerebrovascular disease 05/10/2020 SIADH (syndrome of inappropriate ADH production) 05/02/2020 Overview (05/02/2020): 2/2 ICH Dysphagia due to recent cerebrovascular accident 05/02/2020 Drug abuse 05/02/2020 Pneumonia due to Haemophilus influenzae 05/02/20 20 DVT (deep venous thrombosis) LLE 05/02/2020 Superficial venous thrombosis of arm, bilateral 05/02/2020 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 Admitted 04/20/2020 @ADDRESSFULL@ Extended Emergency Contact Information Primary Emergency Contact: Susanna Burnett Mobile Relation: Child Antithrombotic stroke prevention Statin therapy Blood Pressure goals/control Glycemic control No results found for: HA1C Smoking/tobacco Social History Tobacco Use Smoking Status Current Every Day Smoker VTE ppx Fluids Nutrition NPO diet (Give Meds) Discharge barriers (eg., guardianship, advance directive, insurance) Mobility Last BM 04/25/20 Review standing lab orders Educational packet given and specific education provided today NIHSS (approx 36 hour post t-PA and intervention) Intraventricular hemorrhage 04/20/2020 Overview (05/07/2020): Admitted 04/20/2020 @ADDRESSFULL@ Extended Emergency Contact Information Primary Emergency Contact: Susanna Burnett Mobile Relation: Child Right caudate and IVH Antithrombotic stroke prevention N/A Statin therapy N/A Blood Pressure goals/control Glycemic control No results found for: HA1C Smoking/tobacco Social History Tobacco Use Smoking Status Current Every Day Smoker VTE ppx Fluids Nutrition NPO diet (Give Meds) Discharge barriers (eg., guardianship, advance directive, insurance) Mobility Last BM 04/30/20 Review standing lab orders Educational packet given and specific education provided today Needs, patient not able to absorb now NIHSS (approx 36 hour post t-PA and intervention) N/A Social History Tobacco Use Types Packs/Day Years Used Date Smoking Tobacco: Every Day Smokeless Tobacco: Never Alcohol Use Standard Drinks/Week Comments Yes 0 (1 standard drink = 0.6 oz pur e alcohol) Sex and Gender Information Value Date Recorded Sex Assigned at Not on file Gender Identity Not on file Sexual Orientation Not on file Last Filed Vital Signs Vital Sign Reading [...] Mass Index 19.71 05/10/2020 2:08 PM EDT Plan of Treatment Health Maintenance Due Date Last Done Comments CT Colonography 1959 Colonoscopy 1959 Colorectal Cancer Screening 1959 FIT DNA 1959 FIT 1959 Sigmoidoscopy (10 year) with FIT yearly 1959 Sigmoidoscopy 1959 Pneumoccocal Vaccine: 65+ (1 of 2 - PCV) 1965 HIV screen 1977 Tdap adult 1978 Tetanus vaccine 1978 Zoster vaccine (1 of 2) 2009 Covid-19 Vaccine (1 - season) 2024 Influenza (Flu) vaccine (1 o f 1 - Influenza standard series) 07/23/2024 Lipid Screening 05/03/2025 05/03/2020 Procedures Procedure Name Priority Date/Time Associated Diagnosis Comments LIPID PANEL (NO REFLEX) Routine 05/03/2020 1:14 AM EDT from Last 3 Months or Most Recently Relevant to Health Maintenance Results * Lipid Panel (No Reflex) (05/03/2020 1:14 AM EDT) Cholesterol, Total 138 mg/dL [facility] Comment: Lower Risk: <200 mg/dL Average Risk: 200-239 mg/dL Higher Risk: >dv=988 mg/dL Triglyceride 150 mg/dL [facility] Comment: Average Risk/Lower Risk: <150 mg/dL Borderline High Risk: 150-199 mg/dL High Risk: 200-499 mg/dL Very High Risk: >lh=376 mg/dL HDL Cholesterol 30 mg/dL [facility] Comment: Males: ?? Higher Risk: <40 mg/dL Females: ?? HIgher Risk: <50 mg/dL LDL Cholesterol 78 mg/dL [facility] Comment: Lowest Risk: <100 mg/dL Lower Risk: 100-129 mg/dL Borderline High Risk: 130-159 mg/dL High Risk: 160-189 mg/dL Very High Risk: >qb=405 mg/dL Cholesterol/HDL Ratio 4.6 ratio [facility] Lipid Interpretation See Note [facility] Comment: Lipid management should be guided by a patient? s ASCVD risk, goals and preferences. ACC/AHA Guidelines recommend high intensity statin if clinical ASCVD or LDL greater than or equal to 190 mg/dL. http://Edvert.com/MRF-KDU-Yymwwkxvi Adults aged 40-75 with LDL 70-189 mg/dL should have their 10 year ASCVD risk estimated with the ACC/AHA ASCVD risk drapery estimator http://tools.acc.org/NOBUC-Jdbs-Nhbjrezlq/ Statin should be discussed if risk greater than or equal to 7.5% in non-diabetics. With diabetes, moderate intensity statin is recommended if risk less than 7.5%, high intensity if risk greater than or equal to 7.5%. Annual lipid monitoring on statins is not necessary. Evaluate secondary causes of Triglycerides greater than 500 mg/dL or LDL greater than 190 mg/dL: See table 6 of ACC/AHA Guideline. Lifestyle modification is a critical component of ASCVD risk reduction. 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 Advance Directives and Livin g Will 05/08/2020 3:20 PM 05/08/2020 * Full Code (Latest Code Status on File) Date Activated Date Inactivated Comments 05/10/2020 4:13 PM 05/31/2020 5:55 PM Question Answer Comments Does patient have capacity to make decision: Yes * Full Code Date Activated Date Inactivated Comments 04/20/2020 10:31 PM 05/10/2020 1:55 PM Question Answer Comments Does patient have capacity to make decision: No Code Status decision being made per: Attending o f Record Care Teams Welding Engineer Relationship Specialty Start Date End Date Andrea Coker DNP PCP - General Family Medicine 05/10/20
--- OUTSIDE RECORDS SUMMARY | 2024-07-28 22:42 | XMS_ITS | Encounter Summary ---
Author Organization [facility] [place] [address] Care Team Providers Care Cognos Analyst Name Role Phone Andrea Coker Dylonsarita DNP Primary Care Provider [phone] Encounter Details Date Type Department Care Team (Latest Contact Info) Description 05/11/2020 1:30 PM EDT - 05/11/2020 11:59 PM EDT Hospital Encounter Ultrasound at [address] [id number] Discharge Disposition: Home Social History Tobacco Use Types Packs/Day Years Used Date Smoking Tobacco: Every Day Smokeless Tobacco: Never Alcohol Use Standard Drinks/Week Comments Yes 0 (1 standard drink = 0.6 oz pur e alcohol) Sex and Gender Information Value Date Recorded Sex Assigned at Not on file Gender Identity Not on file Sexual Orientation Not on file documented as of this encounter Medications at Time of Discharge [...] the skin daily. 28 patch 06/01/2020 06/01/2020 acetaminophen (Tylenol) 500 mg Tablet Take 1 tablet by mouth every 6 hours as needed for Pain. 30 tablet 1 05/09/2020 05/31/2020 amLODIPine (Norvasc) 10 mg Tablet Take 1 tablet by mouth daily. 90 tablet 3 05/10/2020 05/31/2020 enoxaparin (LOVENOX) 40 mg/0.4 mL Syringe Inject 0.4 mLs subcutaneously every evening. For DVT ppx 05/09/2020 05/31/2020 famotidine (Pepcid) 40 mg Tablet Take 1 tablet by mouth daily. 30 tablet 12 05/10/2020 05/31/2020 folic acid (Folvite) 1 mg Tablet Take 1 tablet by mouth daily. 90 tablet 3 05/10/2020 05/31/2020 lisinopriL (Prinivil;Zestril) 40 mg Tablet Take 1 tablet by mouth daily. 90 tablet 3 05/10/2020 05/31/2020 modafiniL (Provigil) 100 mg Tablet Take 1 tablet by mouth 2 times daily. 05/09/2020 05/31/2020 multivitamin with minerals (THERA-M) 9 mg iron-400 mcg Tablet Take 1 tablet by mouth daily. 05/10/2020 05/31/2020 propranoloL (Inderal) 40 mg Tablet Take 1 tablet by mouth every 8 hours as needed. 05/09/2020 05/31/2020 thiamine (Vitamin B1) Take 1 tablet by mouth daily. 05/10/2020 05/31/2020 documented as of this encounter Plan of Treatment Not on file documented as of this encounter Procedures Procedure Name Priority Date/Time Associated Diagnosis Comments US ABDOMEN COMPLETE Routine 05/11/2020 2 :30 PM EDT documented in this encounter Results * US Abdomen Complete (05/11/2020 2:30 PM [...] contact the number below. Electronically signed by: VALERIE KAMARA, [facility] ([phone]), at 05/11/2020 2:50 PM ? Valerie Kamara, Staff Physician Electronically Signed Final Report ?? 05/11/2020 02:57 pm Narrative 05/11/2020 2:58 PM EDT Abdominal ? (Signed Final 05/11/2020 02:57 pm) PATIENT INFO: ID #: ? [id number] ?: ??[birth year] (60 yrs)(M) Name: ? YARITZA BURNETT ? Visit Date: 05/11/2020 02:27 pm PERFORMED BY: Performed By: ? Bailey Zaragoza RDMS Attending: ?Asad CORTES, Valerie Fox Referred By: ?PENELOPE MELENDEZ Location: ? [facility] SERVICE(S) PROVIDED: ??[facility] - Abdominal Complete Survey - [id number] ?[id number] INDICATIONS: ??persistant elevated LFTs ------ LIVER: ------ [...] Normal in caliber where visualized Procedure Note Valerie Kamara MD - 05/11/2020 Abdominal (Signed Final 05/11/2020 02:57 pm) PATIENT INFO: ID #: [id number] : [birth year] (60 yrs)(M) Name: YARITZA BURNETT Visit Date: 05/11/2020 02:27 pm PERFORMED BY: Performed By: Bailey Zaragoza RDMS Attending: Valerie Kamara MD Referred By: PENELOPE MELENDEZ Location: [facility] SERVICE(S) PROVIDED: [facility] - Abdominal Complete Survey - [id number] INDICATIONS: persistant elevated LFTs ------ LIVER: ------ [...] contact the number below. Electronically signed by: VALERIE KAMARA, [facility] ([phone]), at 05/11/2020 2:50 PM Valerie Kamara, Staff Physician Electronically Signed Final Report 05/11/2020 02:57 pm Penelope Melendez MD IMG US GEN ORDERABLE S documented in this encounter Visit Diagnoses Not on filedocumented in this encounter Additional Health Concerns Infection Onset Date Last Indicated Resolved Time Rule Out Hepatitis A 05/11/2020 05/11/2020 020 11:41 AM EDT documented as of this encounter Care Teams Cognos Analyst Relationship 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
[2024-07-28 22:45] LABS: COVID-19 PCR Negative (Negative); Influenza A PCR Negative (Negative); Influenza B PCR Negative (Negative); RSV PCR Negative (Negative)
--- OUTSIDE RECORDS SUMMARY | 2024-07-28 22:45 | XMS_ITS | Encounter Summary ---
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 Role Phone Andrea Coker DNP Primary Care Provider [phone] Reason for Visit * Reason Comments Hospital Transfer Altered Mental Status found down at home * Auth/Cert Specialty Diagnoses / Procedures Referred By Contac t Referred To Contact Diagnoses Intraventricular hemorrhage patient found unresponsive Referral ID Status Reason Start Date Expiration Date Visits Re quested Visits Authorized [id number] 1 1 Encounter Details Date Type Department Care Team (Latest Contact Info) Description 04/20/2020 5:24 PM EDT - 05/10/2020 12:42 PM EDT Hospital Encounter [address] [place] [address] Raul Krishnan MD [facility] [place] [address] Jana Trinh MD [facility] [place] [address] Casey Jiménez MD [facility] [place] [address] Patricia Arias MD [facility] [address] Nontraumatic intracerebral hemorrhage, unspecified cerebral location, unspecified laterality; Intraventricular hemorrhage; Deep vein thrombosis (DVT) of left lower extremity, unspecified chronicity, unspecified vein Discharge Disposition: Rehab Center in a Facility Social History Tobacco Use Types Packs/Day Years [...] Sign Reading Time Taken Comments Blood Pressure 121/69 05/10/2020 7:20 AM EDT Pulse 72 05/10/2020 7:20 AM EDT Temperature 36.6 ??C (97.9 ??F) 05/10/2020 7:20 AM ED T Respiratory Rate 16 05/10/2020 7:20 AM EDT Oxygen Saturation 97% 05/10/2020 7:20 AM EDT Inhaled Oxygen Concentration - - Weight 53.4 kg (117 lb 11.6 oz) 05/08/2020 5:35 AM EDT Height 168 cm (5' 6.14) 04/20/2020 11: 00 PM EDT Body Mass Index 18.92 04/20/2020 11:00 PM EDT documented in this encounter Discharge Summaries * Melissa Cohen MD - 05/10/2020 11:24 AM EDT Images from the original note were not included. Discharge Summary Patient Name: Ollie Burnett Sr. Patient Age: 60 y.o. Language: [place]orese Race: White Ethnicity: Not nor Admit date: 04/20/2020 Discharge date and time: 05/09/2012:26 PM Attending Physician: Casey Jiménez MD Discharge Physician: Dr. Pizano Follow-up Recommendations for Providers: -Stroke clinic follow-up will be made for 4-6 weeks -Patient will be discharged with new anti-hypertensive medications (Amlodipine and Propanolol) -Please wean off modafinil has alertness improves. Inpatient Provider Contact Information: For questions regarding this document or issues related to this hospitalization on the Neurology Service, please contact the author(s) of this discharge summary through the [facility] Respiratory Therapy Assistant . Discharge Diagnoses: Right caudate + intraventricular hemorrhage s/p EVD in setting of HTN and drugabuse Active Hospital Problems Diagnosis ??? SIADH (syndrome of inappropriate ADH production) ??? Dysphagia as late effect of cerebrovascular disease ??? Drug abuse ??? Pneumonia due to Haemophilus influenzae ??? DVT (deep venous thrombosis) LLE ??? Superficial venous thrombosis of arm, bilateral ??? 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 Intraventricular hemorrhage Resolved Hospital Problems No resolved problems to display. Past medical History: History reviewed. No pertinent past medical history. Active Non Hospital Problems: There are no active non-hospital problems to display for this patient. History of Presentation: Ollie Burnett Sr. is a 60 y.o. male with a past medical history of ETOH abuse and hemochromatosis presenting to [facility] today with spontaneous ICH. Per [facility], he was last known normal around 1400 today and was found down by after reportedly snorting Ritalin. He was reportedly brought to OSH unresponsive but initially maintaining airway. Initial vital signs: 159/65, HR 81, RR 18, 100% on NRB mask, afebrile. Per chart review, he had a poor neuro exam and was subsequently intubated. Of note, he reportedly has an old contusion on his forehead about 1 week old per family. ?? Intracranial imaging revealed right caudate ICH with massive intraventricular extension and casted right lateral, 3rd, and 4th ventricles. Emergent EVD was placed in ED. He was then admitted to the Neurocritical Care team for close neurologic monitoring. Patient was rapid-tested for COVID in ED prior to admission to the unit and was noted to be negative. Physical Exam at Admission: Vitals: Temp: [36.4 ??C (97.5 ??F)-37.3 ??C (99.1 ??F)] Heart Rate: [72-89] Resp: [12-19] BP: (94-137)/(51-72) SpO2: [97 %-100 %] Heart Rate from SpO2: [72 bpm-94 bpm] Gen: Patient of apparent stated age, well nourished, well developed, awake, alert, NAD Neck: Supple, no meningismus Ext: No edema. No bony deformity Neuro Exam: MS: Awake, eyes closed Follows simple commands on RUE CN: PERRL, EOMI, visual lazaro full + VOR, + corneals No facial asymmetry Hearing intact to voice + cough, + gag Motor: Normal bulk and tone RUE: squeezes hand on command, antigravity purposeful strength LUE: withdraws from noxious stimuli, localizes RLE: withdraws from noxious stimuli, localizes LLE: antigravity purposeful strength Sensation: withdraws from noxious stimuli throughout Reflexes: DTRs 2+ R, 2+ L Biceps 2+ R, 2+ L Brachioradialis 2+ R, 2+ L Triceps 2+ R, 2+ L Patellar 2+ R, 2+ L Achilles tendon Toes - R down, L down Coordination: Unable to assess, no tremor Gait: Unable to assess ?? NIH Stroke Scale: (bold applicable choices) NIH Stroke Scale at Initial Evaluation: ?? 1.a. Level of consciousness: 0-Alert 1-Not alert, but arousable with minimal stimulation 2-Not alert, requires repeat stimulation to attend 3-Coma 1.b. Ask patient the month and their age: 0-Answers both correctly 1-Answers one correctly 2-Both incorrect 1.c. Ask patient to open and close eyes: 0-Obeys both correctly 1-Obeys one correctly 2-Both incorrect 2. Best gaze (horizontal eye movement): 0-Normal 1-Partial gaze palsy 2-Forced deviation 3. Visual field testin-No visual field loss 1-Partial hemianopia 2-Complete hemianopia 3-Bilateral hemianopia (blind including cortical blindness) 4. Facial paresis (Ask patient to show teeth or raise eyebrows and close eyes tightly): 0-Normal symmetrical movement 1-Minor paralysis (flattened nasolabial fold, asymmetry on smiling) 2-Partial paralysis (total or near paralysis of lower face) 3-Complete paralysis of one or both sides (absence of facial movement in the upper and lower face) 5. Motor function right arm: 0-Normal (extends arm 90 degrees for 10 seconds without drift) 1-Drift 2-Some effort against gravity 3-No effort against gravity 4-No movement UT-Untestable (Joint fused or limb amputated) 5. Motor function- left arm: 0-Normal (extends arm 90 degrees for 10 seconds without drift) 1-Drift 2-Some effort against gravity 3-No effort against gravity (but baseline) 4-No movement UT-Untestable (Joint fused or limb amputated) 6. Motor function right le-Normal (extends leg 30 degrees for 5 seconds without drift) 1-Drift 2-Some effort against gravity 3-No effort against gravity 4-No movement UT-Untestable (Joint fused or limb amputated) 6. Motor function-left le-Normal (extends leg 30 degrees for 5 seconds without drift) 1-Drift 2-Some effort against gravity 3-No effort against gravity 4-No movement UT-Untestable (Joint fused or limb amputated) 7. Limb ataxia: 0-No ataxia 1-Present in one limb 2-Present in two limbs 8. Sensory (Use pinprick to test arms, legs, trunk and face compare side to side): 0-Normal 1-Mild to moderate decrease in sensation 2-Severe to total sensory loss 9. Best language (describe picture, name items, read sentences): 0-No aphasia 1-Mild to moderate aphasia 2-Severe aphasia 3-Mute 10. Dysarthria (read several words): 0-Normal articulation 1-Mild to moderate slurring of words 2-Near unintelligible or unable to speak UT-Intubated or other physical barrier 11. Extinction and inattention: 0-Normal 1-Inattention or extinction to bilateral simultaneous in one of the sensory modalities 2-Severe tae-inattention or tae-inattention to more than one modality ?? TOTAL SCORE: 13 ? ICH Score: GCS 2: 3-4 1: 5-12 0: 13-15 ICH volume 1: > 30 cm3 0: < 30 cm3 Interventricular hemorrhage 1: yes 0: no Infratentorial origin of ICH 1: yes 0: no Age 1: > 80 years 0: < 80 years TOTAL 3 ?? Interpretation: ICH score 0 1 2 3 4 5 6 30 day mortality No mortality 13% 26% 72% 97% 100% Estimated 100% Hospital Course:: Ollie Burnett Sr. is a 60 y.o. male who was admitted to the neurology service for further evaluation of intraventricular hemorrhage found on OSH CT scan. #ICH Davin was admitted to NCCU with neurosurgery consulting. Intubated at OSH prior to arrival. EVD was placed in the ED at [facility] on arrival. Neuro exam on admission showed conjugate gaze, not following commands, not localizing, +withdrawal X4 to noxious stimuli and strong spontaneous cough. CTA head unrevealing for underlying aneurysm or vascular malformation. EEG unrevealing for any epileptiform activity. DSA performed on 04/22, unrevealing for underlying etiology. Repeat MRI on 04/23 showed new punctate foci of slow diffusion scattered throughout the right>left cortical cerebri. ICPs remained stable, EVD was weaned over 10 days. Serial head CTs showed improvement of intraventricular blood and improved supratentorial hydrocephalus. EVD removed on 04/30. Pt had waxing and waning mental status as well as left sided weakness throughout hospitalization. On 05/01 pt was started on modafinil to help with alertness. TTE showed EF 60%, no LV WMA, no PFO noted with agitated saline. Most likely etiology of hemorrhage was hypertension/vasospasm secondary to drug abuse. #SIADH On HD#8, pt noted to be dumping large amounts of urine and became hyponatremic. Urine and serum studies suggested SIADH. Pt placed on fluid restriction and fludrocortisone with improvement in sodium.Medications weaned off, no further issues. #Dysphagia NGT placed for nutrition and medication use. Cleared for puree/thin liquids 05/05 Patient increased his oral intake of food and diet advanced to dysphagia soft. NGT removed 05/08 and he was tolerating a diet well with excellent PO intake. #Drug abuse, withdrawal concern - MVI, thiamine, and folate given. COMPLETED 04/25??PHB protocol for ETOH withdrawal and he had no evidence of substance withdrawal throughout the extent of his hospital stay #H.Flu PNA Pt had LP on 05/03 for persistent fevers with no other clear source and uptrending WBC count, tachycardia. This was unrevealing. Repeat blood cultures, UA, CXR COVID19 negative. Treated with short course of ceftriaxone and vanc. Respiratory cx showed h.flu, for which he was treated with 7 day courseof Zosyn. CXR and O2 sat showed improvement. #DVTs, superficial thrombus, fevers Pt had several low grade fevers on 04/30-05/02. DVT studies showed focal sub-acute to chronic left lower extremity DVT non-occlusive thrombus. Anticoagulation contraindicated at this time. This was monitored with repeat duplex on 05/06 was stable. Also, BUE DVT studies performed on 05/01, pt had notableredness and swelling for RUE. This showed acute superficial thrombus in R, no evidence of DVT or IJthrombus and a focal non-occlusive DVT in the left subclavian vein (of note had left SC central line in ICU) and an acute, superficial thrombus in the basilic vein of LUE. Repeat DVT studies were performed on 05/06 and showed stability of the clots and continued with DVT ppx and SCDs. #Leukocytosis #Infectious NOS Upon transfer to the stroke service, Davin had waxing/waning mental status with fevers and elevated WCC. A full infectious work-up including blood cultures, CBC/LFTs/BMP/LP all of which were negative.After the LP, he was empirically started on piperacillin/tazobactam in addition to vancomycin. Afterwards his white count normalized and his mental status cleared and his antibiotic course was completed 05/09. #Cigarette Smoker (2 PPD per daughter). NRT with Nicotine patch 21mg/day initiated 05/02/2020 and then decreased to 14mg/day Patient was evaluated by rehabilitation services and deemed appropriate for Rehab. Operations & Procedures: EVD DSA Dobhoff tube Consultations: 1. PT/OT/SL Diagnostic Tests & Neuroimaging: Date Study Results 04/23 MRI wwout ??IMPRESSION 1. Scattered punctate cortical and white matter acute infarcts, likely microembolic, RIGHT greater than LEFT. 2. Redemonstrated large amount of intraventricular hemorrhage dissecting from the RIGHT caudate head and globus pallidus, with persistent hydrocephalus and regional mass effect as described above. 04/21 MRI brain wwout IMPRESSION Right basal ganglia parenchymal hemorrhage with intraventricular extension and ventricular enlargement. No evidence of underlying parenchymal enhancing mass. 04/20 CT Head and CTA head HEAD CT: ?? There is a 1.5 cm high attenuation intraparenchymal hemorrhage involving the right caudate head (axial series 2 image 22) with intraventricular extension of hemorrhage. There is extensive high attenuation blood products within the right lateral ventricle, crossing the foramen of Monro into the inferior left lateral ventricle with dependently layering blood products in the posterior ventricles. Blood products are present within the dilated third ventricle, cerebral aqueduct and fourth ventricle. The overall volume of intraparenchymal and intraventricular blood products is unchanged when compared to the earlier examination allowing for redistribution within the ventricular system. ?? Unchanged ventriculomegaly. There is low-attenuation within the periventricular white matter, concerning for transependymal CSF flow in the setting of hydrocephalus. Basal cisterns are patent. ?? Orbits are unremarkable. Endotracheal and enteric tube are present. Mucosal thickening of the anterior ethmoid sinuses. There are retained secretions within the posterior nasopharynx and oropharynx. Multiple sites of dental caries and advanced endodontal disease involving maxillary and mandibular teeth. Mastoid air cells are clear. No suspicious osseous lesions. No calvarial fracture. There is a 6 mm exophytic nodule within the left face (axial series 4 image 21). There is a 7 mm rounded nodule within the posterior superficial left parotid gland (axial series 3 image 17). ?? CT ANGIOGRAM OF THE [place]: ?? Mild narrowing of the bilateral cavernous ICAs due to atherosclerotic disease. Normal anterior cerebral arteries. Normal anterior communicating artery. Normal right and left middle cerebral arteries. Left posterior communicating artery is patent. The right posterior communicating artery is diminutive but patent. Normal posterior cerebral arteries. Normal basilar artery. Small caliber of the intradural vertebral arteries which are patent. ?? No aneurysm. No evidence of arteriovenous malformation in the region of hemorrhage. ?? IMPRESSION Head CT: 1. Right caudate intraparenchymal hemorrhage with intraventricular extension of blood products. 2. Supratentorial hydrocephalus and transependymal CSF flow. 3. Advanced dental caries and endodontal disease. ?? CT angiogram of the [place]: 1. No aneurysm or evidence of AVM. 2. No large vessel occlusion. 05/01 CT head ??IMPRESSION 1. Improvement of intraventricular hemorrhage and roughly stable adjacent right intraparenchymal periventricular hemorrhage. 2. Similar appearance of right to left subfalcine herniation. 3. No new hemorrhage. 04/22 TTE ??SUMMARY: ?? 1. The left ventricular chamber size is normal. Left ventricular wall thickness is normal. There are no left ventricular segmental wall motion abnormalities. There is normal global left ventricular systolic function. Ejection fraction is estimated to be 60%. 2. The right ventricle is normal in size. Right ventricular global systolic function is normal. 3. There is no hemodynamically significant valve disease. 4. Pulmonary artery hypertension could not be assessed due to inadequate tricuspid regurgitation jet. 5. There is no evidence of a patent foramen ovale with agitated saline contrast. 6. See remainder of report for additional findings. 04/29 BLE DVT Interpretation: ?? RIGHT: ??No evidence of lower extremity deep venous thrombosis. ?? LEFT: Focal sub-acute to chronic lower extremity deep venous non-occlusive thrombosis. ?? Comparison: ?? No previous study in our vascular lab database for comparison. 05/01 BUE DVT Interpretation: ?? Right: Acute, superficial thrombus in the median cubital vein just distal to the antecubital fossa. No evidence of upper extremity deep venous thrombus. No evidence of internal jugular vein thrombus. ? Left: Focal, non-occlusive deep venous thrombosis in the subclavian vein. Acute, superficial thrombus in the basilic vein of the upper arm. ?? Comparison: ??No previous study in our vascular lab database for comparison. Labs: Lipid Panel Lab Results Component Value Date CHLPL 138 05/03/2020 HDL 30 05/03/2020 CHOLHDL 4.6 05/03/2020 TRIG 150 05/03/2020 LDLCHOL 78 05/03/2020 Lab Results Component Value Date HA1C 5.4 05/03/2020 Pending Studies and Lab Data: The patient will need the following test completed on: 04/20/2020 1. IR Arteriogram Cerebral Diagnosis: Authorizing Provider: Jana Trinh MD Vital Signs at Discharge: BP: 132/70, Heart Rate: 68, Temp: 36.6 ??C (97.9 ??F), Resp: 16, Height: 168 cm (5' 6.14) (04/20/20 2300) Weight: 53.4 kg (117 lb 11.6 oz) (05/08/20 0535) Functional and Cognitive Status: Needs assistance Physical Exam at Discharge: Vitals: Temp: [36.4 ??C (97.5 ??F)-37 ??C (98.6 ??F)] Heart Rate: [72-74] Resp: [16] BP: (116-137)/(59-83) SpO2: [96 %-98 %] Heart Rate from SpO2: [63 bpm-74 bpm] Gen: Appears older than stated age, thin. Awakens to voice Neuro Exam: MS: Alert, speaking in a whisper but understandable Follows simple appendicular and midline commands CN: PERRL, right gaze preference, tracks examiner across room No facial asymmetry, poor dentition Hearing grossly intact to voice, deformity of left external ear noted Motor: Normal bulk and tone RUE: 5/5 LUE: 3/5 RLE: 5/5 LLE: 2/5 Sensation: Withdraws from noxious stimulus in left LE Reflexes: Babinski down on right, UP on left Coordination: not assessed Gait: Unable to assess Discharge Conditions/Prognosis: Stable Discharge to: Rehab Updated Allergies/ADRs: No Known Allergies Immunizations Given this Hospitalization: There is no immunization history on file for this patient. Discharge Medications: Your Medications New Medications Dose Details amLODIPine 10 mg Tab Commonly known as: Norvasc Take 1 tablet by mouth daily. Start taking on: May 10, 2020 10 mg Quantity: 90 tablet Refills: 3 enoxaparin 40 mg/0.4 mL Syrg Commonly known as: LOVENOX Inject 0.4 mLs subcutaneously every evening. For DVT ppx 40 mg Refills: 0 famotidine 40 mg Tab Commonly known as: Pepcid Take 1 tablet by mouth daily. Start taking on: May 10, 2020 40 mg Quantity: 30 tablet Refills: 12 folic acid 1 mg Tab Commonly known as: Folvite Take 1 tablet by mouth daily. Start taking on: May 10, 2020 1,000 mcg Quantity: 90 tablet Refills: 3 lisinopriL 40 mg Tab Commonly known as: Prinivil;Zestril Take 1 tablet by mouth daily. Start taking on: May 10, 2020 40 mg Quantity: 90 tablet Refills: 3 modafiniL 100 mg Tab Commonly known as: Provigil Take 1 tablet by mouth 2 times daily. 100 mg Refills: 0 multivitamin with minerals 9 mg iron-400 mcg Tab Commonly known as: THERA-M Take 1 tablet by mouth daily. Start taking on: May 10, 2020 1 tablet Refills: 0 propranoloL 40 mg Tab Commonly known as: Inderal Take 1 tablet by mouth every 8 hours as needed. 40 mg Refills: 0 thiamine Commonly known as: Vitamin B1 Take 1 tablet by mouth daily. Start taking on: May 10, 2020 100 mg Refills: 0 Continued medications with new dosing Dose Details acetaminophen 500 mg Tab Commonly known as: Tylenol Take 1 tablet by mouth every 6 hours as needed for Pain. What changed: ?? medication strength ?? See the new instructions. 500 mg Quantity: 30 tablet Refills: 1 STOPPED Medications Silvadene 1 % Crea Generic drug: silver sulfADIAZINE Vicodin 5-500 mg Tab Generic drug: HYDROcodone-acetaminophen Smoking Status at Discharge: Social History Tobacco Use Smoking Status Current Every Day Smoker SECONDARY STROKE PREVENTION: Preventative measure Antithrombotic agent for stroke prevention (aspirin,clopidogrel, ticagrelor, therapeutic anticoagulation etc...) was not initiated due to IVH. If documented history of atrial fibrillation/flutter, anticoagulation therapy was not prescribed due to No afib seen for stroke prevention. Cholesterol-lowering medication (including statins) was not prescribed due to not indicated Smoking cessation: If patient smoked within the past year, smoking cessation counseling was performed. Nicotine supplements were provided to the patient/caregiver. Education: Stroke information packet provided to patient and/or family, which included personal modifiable risk factors for stroke, stroke warning signs and symptoms, how to activate EMS for stroke, and need for follow-up after discharge was performed. Modified Fenwick Score (MRS) on discharge Score Description 0 No symptoms at all 1 No significant disability despite symptoms; able to carry out all usual duties and activities 2 Slight disability; unable to carry out all previous activities, but able to look after own affairs without assistance 3 Moderate disability; requiring some help, but able to walk without assistance 4 Moderately severe disability; unable to walk without assistance 5 Severe disability; bedridden, incontinent and requiring constant nursing care and attention 6 Total Score: 4 NIH Stroke Scale at Discharge Evaluation: 1.a. Level of consciousness: 0-Alert 1-Not alert, but arousable with minimal stimulation 2-Not alert, requires repeat stimulation to attend 3-Coma 1.b. Ask patient the month and their age: 0-Answers both correctly 1-Answers one correctly 2-Both incorrect 1.c. Ask patient to open and close eyes: 0-Obeys both correctly 1-Obeys one correctly 2-Both incorrect 2. Best gaze (horizontal eye movement): 0-Normal 1-Partial gaze palsy 2-Forced deviation 3. Visual field testin-No visual field loss 1-Partial hemianopia 2-Complete hemianopia 3-Bilateral hemianopia (blind including cortical blindness) 4. Facial paresis (Ask patient to show teeth or raise eyebrows and close eyes tightly): 0-Normal symmetrical movement 1-Minor paralysis (flattened nasolabial fold, asymmetry on smiling) 2-Partial paralysis (total or near paralysis of lower face) 3-Complete paralysis of one or both sides (absence of facial movement in the upper and lower face) 5. Motor function right arm: 0-Normal (extends arm 90 degrees for 10 seconds without drift) 1-Drift 2-Some effort against gravity 3-No effort against gravity 4-No movement 9-Untestable (Joint fused or limb amputated) 5. Motor function- left arm: 0-Normal (extends arm 90 degrees for 10 seconds without drift) 1-Drift 2-Some effort against gravity 3-No effort against gravity 4-No movement 9-Untestable (Joint fused or limb amputated) 6. Motor function right le-Normal (extends leg 30 degrees for 5 seconds without drift) 1-Drift 2-Some effort against gravity 3-No effort against gravity 4-No movement 9-Untestable (Joint fused or limb amputated) 6. Motor function-left le-Normal (extends leg 30 degrees for 5 seconds without drift) 1-Drift 2-Some effort against gravity 3-No effort against gravity 4-No movement 9-Untestable (Joint fused or limb amputated) 7. Limb ataxia: 0-No ataxia 1-Present in one limb 2-Present in two limbs 8. Sensory (Use pinprick to test arms, legs, trunk and face compare side to side): 0-Normal 1-Mild to moderate decrease in sensation 2-Severe to total sensory loss 9. Best language (describe picture, name items, read sentences): 0-No aphasia 1-Mild to moderate aphasia 2-Severe aphasia 3-Mute 10. Dysarthria (read several words): 0-Normal articulation 1-Mild to moderate slurring of words 2-Near unintelligible or unable to speak 9-Intubated or other physical barrier 11. 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 - maintain bowel reg FEN/ - SIADH - maintain euvolemia, I=O - Goal Na 135-145, K > 4, Mg > 1 - ICU potassium repletion protocol - Fludricort Heme - - goal Hgb > 7, INR < 1.5, Platelets > 50k - SCDs, SQH for DVT ppx Endo - - goal glucose 120-180 --> No ISS ID - H.Flu PNA - for temp > 101F --> UA, CXR, blood cx, sputum cx - Tylenol PRN - Ceftriaxone Day 04/04 Core: Code status: FULL Lines: PIVs, midline Tubes: [place], flexiseal Drains: EVD Glu: SSI Positioning: HOB>30 YES Mouth care ordered YES GI ppx: H2B DVT ppx: SQH Skin integrity: Intact Family communication: Pending PT/OT: Consulted Dispo - ICU //////////////////////////////////////////////////////////////////////////////// //////////////////// /////////////////////////////////////////////////Attestation: IS PATIENT CRITICALLY ILL ? Is there a high potential of sudden, clinically significant, or life threatening deterioration? No Fanny Zaldivar MD 04/29/2020 4:16 PM * Isi Abdi, RD - 04/29/2020 12:52 PM EDT Nutrition Progress Note Ollie Burnett Sr. is a 60 y.o. male admitted with right BG bleed and IVH with HC (s/p EVD), relevant medical history includes ETOH abuse and hemochromatosis. Reason for intervention: ICU Tube-feeding Nutrition Recommendations: For a more concentrated formula, suggest Nutren 2.0. Goal rate would be 45 ml/hr plus 4 scoops protein powder daily (2 scoops BID). Rate adjusted to compensate for unplanned time off TFs 2/2 treatments, procedures, etc At goal: 900 ml, 1900 calories, 99 grams protein, 623 ml water from formula + 200 ml with protein powder administration and 100% RDIs for vitamins and minerals. Monitor Mg and Phos at least twice weekly please. Monitor hydration status on above TFs as they are concentrated. Pt may need additional fluids depending on IVFs, med flushes, etc. Biweekly weights appreciated. Paged [phone] about the above. All Active TF Orders: Promote with a goal rate of 85 ml per hour. This rate is calculated to compensate for unplanned time off feedings due to potential procedures, etc. At goal, this will provide 1700 ml formula, 1700 calories, 106 grams protein, 1426 ml water from formula + 0 ml water from protein powder administration and 100% of RDI's for vitamins and minerals. Enteral access: OGT Oxygen Therapy/airway: O2 Device: None (Room air) Lab Results Component Value Date NA 134 (L) 04/29/2020 K 3.6 04/29/2020 CL 98 04/29/2020 CO2 23 04/29/2020 BUN 21 (H) 04/29/2020 CREATININE 0.57 (L) 04/29/2020 GFRAA 128 04/29/2020 MAGNESIUM 0.85 04/29/2020 CALCIUM 8.8 04/29/2020 PHOS 3.8 04/29/2020 AST 69 (H) 04/22/2020 ALT 84 (H) 04/22/2020 ALKPHOS 50 04/22/2020 BILITOT 0.9 04/22/2020 BILIDIR 0.5 (H) 04/22/2020 IRON 96 04/21/2020 No results found for: POCGLU Skin Status: Shift Pressure Injury Prevention Occiput: No Injury Thoracic Spine: No Injury Sacral: No Injury Ischial - left: No Injury Ischial - right: No Injury Heel - left: No Injury Heel - right: No Injury Elbow - left: No Injury Elbow - right: No Injury Device Sites: NGT, O2 sat monitor, oxygen tubing, IV sites, ECG Leads, Flexiseal Other Sites: EVD Relevant medications: pepcid, folvite, MVI with minerals, bowel meds, thiamine, liquid tylenol, others noted. Last Bowel Movement: 04/28/20 I/O from last 2 shifts: Intake/Output Summary (Last 24 hours) at 04/29/2020 1252 Last data filed at 04/29/2020 1200 Gross per 24 hour Intake 2713 ml Output 3768 ml Net -1055 ml Admit Weight: 62.6 kg Estimated body mass index is 21.83 kg/m?? as calculated from the following: Height as of this encounter: 168 cm (5' 6.14). Weight as of this encounter: 61.6 kg (135 lb 12.9 oz). Bryant Body Weight: n/a Usual Body Weight: n/a Wt Readings from Last 10 Encounters: 04/29/20 61.6 kg (135 lb 12.9 oz) Patient Vitals for the past 168 hrs: Weight 04/29/20 0429 61.6 kg (135 lb 12.9 oz) 04/27/20 2100 66 kg (145 lb 8.1 oz) 04/23/20 0100 65.6 kg (144 lb 10 oz) Assessment: Nutrition intake and intake history/Interview: n/a Estimated needs: Calories: 3751-3864 (25-30 kcal/kg) Protein: 99 grams (1.5 g/kg) Average tube feeding provision over past 3 days; 1363mL vs daily goal volume of 1700 mL formula (80% of goal) Tolerance or barriers to meeting needs:tolerating well now, however team would like to concentrate feeds. Nutrition Focused Physical Exam (NFPE): Not performed Protein-calorie Malnutrition: Not identified (Cora, JPEN J Parenteral Enteral Nutr. 2012 March; 36(3): [phone]) Nutrition to continue to follow up while inpatient JEANETTE LÓPEZ Pager #:[phone] * Rachele Cole MSW - 04/29/2020 11:57 AM EDT Recent notes reviewed and case discussed with NCC Team and Neurosurgery. Patient remains extubated and at times is able to follow commands and respond appropriately. PT andOT will hopefully see him today VISUAL TRAINING AIDE contacted patient's daughter, Susanna, who voiced appreciation for the call as she had been getting different reports from the nurses and I'm not sure who to believe. VISUAL TRAINING AIDE provided education on waxing/waning mental status and explained frequency of neuro checks while in ICU. Susanna reports she is hoping to have a 1 pm virtual visit with patient today but has not heard back from the coordinator on what she needs to download. VISUAL TRAINING AIDE agreed to send email to see if we could confirm time of visit and details. Susanna also expressed interest in visiting with patient. VISUAL TRAINING AIDE explained current visitor guideline. Discussed need for rehab and Susanna was unsure of her preference between [facility] and [facility] and would like patient to be able to express his preferences. She was agreeable to both referrals being sent out at this time. (Rn-CM informed) Spoke to Neurosurgery later who feels it is likely that patient will need a guardian appointed as he may not clear before transition to rehab. VISUAL TRAINING AIDE will discuss further with NCC team after they finishrounding Office of Case Management- Social Work Note KYE Ch, [facility] Pager [phone] * Cassandra Mejía RN - 04/29/2020 10:22 AM EDT OFFICE OF CARE MANAGEMENT Roll Line Operator Follow-up Note Patient plan of care discussed in multidisciplinary rounds and assessment for continuing care and discharge needs. [facility]: Day 8 Per Lisa Mckay's note dated 04/29/2020: ID: Ollie Burnett . is a 60 y.o. male with spontaneous R BG IPH with IVH leading to hydrocephalus s/p L EVD placement. ??INTERVAL Hx: -Neurologically stable -EVD open at 20 cm H2O -Febrile; Tmax 38.9 C. VISUAL TRAINING AIDE Rachele Cole and I talked with pt's daughter Susanna Burnett today; updates provided. Rachele is working with NCCU nursing to set up video chat for Susanna and Ollie (pt). We also talked about Ollie's potential need for acute/snf rehab at discharge, pending PT/OT evaluations. ?? I reviewed the different levels of rehab including SNF, swing, acute and LTAC with the Susanna. ?? I have requested that the Susanna provide at least three choices for referral. She chose two: 1. [facility] Acute Rehabilitation and Sub-Acute (Swing) Rehab Levels of Care [address] [place] [address] ?? 2. [facility] ([facility]) [address] [place] [address] ?? [phone] ?? Expected date of discharge: Possibly within one week. Transportation to be determined. Note routed to Director Experimental Medicine who will communicate referrals to facilities and provide any required information. Patient continues to require hospitalization NCCU level of care. Roll Line Operator to follow with team and family to assist with discharge needs when patient ready for discharge. Cassandra Mejía RN NCCU and [facility] [phone] Pager # [phone] * Lisa Mckay APRN - 04/29/2020 8:54 AM EDT NEUROSURGERY PROGRESS NOTE ID: Ollie Burnett Sr. is a 60 y.o. male with spontaneous R BG IPH with IVH leading to hydrocephalus s/p L EVD placement. INTERVAL Hx: -Neurologically stable -EVD open at 20 cm H2O -Febrile; Tmax 38.9 C MEDICATIONS: Scheduled Meds: ??? famotidine 40 mg Per NG tube Daily ??? fludrocortisone 0.1 mg Oral Daily ??? acetaminophen 1,000 mg Oral Q6H JOSE ??? valproic acid 500 mg Oral Q8H JOSE ??? propranolol 40 mg Oral Q8H JOSE ??? cefTRIAXone 2 g Intravenous Q24H ??? lisinopriL 20 mg Oral Daily ??? amLODIPine 10 mg Oral Daily ??? polyethylene glycol (MIRALAX)oral powder 17 g Oral Daily ??? magnesium hydroxide 10 mL Oral Nightly ??? heparin (Porcine) 5,000 Units Subcutaneous Q8H JOSE ??? thiamine 100 mg Oral Daily ??? folic acid 1 mg Oral Daily ??? multivitamin with minerals 1 tablet Oral Daily ??? senna-docusate 2 tablet Oral BID Continuous Infusions: ??? tube feeding diet 85 mL/hr at 04/28/20 0600 PRN: albuteroL, 2 puff, Q6H PRN Potassium supplement in solution, 20-60 mEq, Q4H PRN labetalol, 10-20 mg, Q15 Min PRN bisacodyL, 10 mg, Daily PRN fentaNYL (PF), 25 mcg, Q30 Min PRN EXAM: Temp: [36.5 ??C (97.7 ??F)-38.9 ??C (102 ??F)] Heart Rate: [73-101] Resp: [14-27] BP: (127-175)/(52-80) SpO2: [96 %-100 %] Heart Rate from SpO2: [70 bpm-97 bpm] I/O: Intake/Output Summary (Last 24 hours) at 04/29/2020 0854 Last data filed at 04/29/2020 0800 Gross per 24 hour Intake 2514.2 ml Output 3209 ml Net -694.8 ml Drains: L frontal EVD @ 20 cm H2O, output = 45 cc x 24h (bloody output) ICPs 4-14 NEURO: Awake, alert. Eyes open spontaneously. Intermittently cooperative with exam. Does not answer orientation questions. PERRL MOTOR: RUE: Follows commands, thumbs up LUE: Moves spontaneously, not following commands RLE: Follow commands, wiggles toes LLE: Moves spontaneously, not following commands LABS: Recent Labs 04/29/20 0019 04/28/20 0430 04/27/20 0215 WBC 9.6* 8.4 7.0 HGB 12.1* 13.1* 11.3* PLATELET 264 244 189 Recent Labs 04/29/20 0019 04/28/20 1652 04/28/20 1053 04/28/20 0430 04/27/20 0215 NA 134* 134* 130* 131* < > 133* K 3.6 -- -- 4.1 -- 3.8 CL 98 -- -- 98 -- 99 CO2 23 -- -- 20* -- 23 BUN 21* -- -- 17 -- 12 CREATININE 0.57* -- -- 0.43* -- 0.42* < > = values in this interval not displayed. No results for input(s): PT, INR in the last 72 hours. IMAGING: MRI brain wo 04/23 1. Scattered punctate cortical and white matter acute infarcts, likely microembolic, RIGHT greater than LEFT. 2. Redemonstrated large amount of intraventricular hemorrhage dissecting from the RIGHT caudate head and globus pallidus, with persistent hydrocephalus and regional mass effect as described above. CT head 04/22 IMPRESSION No significant interval change. MRI brain 04/21 IMPRESSION Right basal ganglia parenchymal hemorrhage with intraventricular extension and ventricular enlargement. No evidence of underlying parenchymal enhancing mass. CTH 04/27: IMPRESSION 1. Grossly stable right basal ganglia hemorrhage with intraventricular extension with some interval redistribution of the hemorrhage within the third and fourth ventricle. Unchanged lateral ventriculomegaly with stable right to left midline shift. 2. Scattered punctate cortical infarcts corresponding to recent MR. No new large territorial infarct. Assessment: Ollie Burnett Sr. is a 60 y.o. male with R BG IPH with IVH leading to hydrocephalus s/p L EVD placement. DSA 04/22 without aneurysm or vascular malformation. With change in neuro exam post DSA and having been started on phenobarbital for ETOH withdrawal, repeat CT head stable. MRI with tiny scattered acute infarcts does not provide explanation for change in exam. Patient was extubated on 04/26. Today patient continues to follow commands in the right and is not cooperative with left side examination. Problem List: Possible cerebral salt wasting Hyponatremia UTI S/p EVD placement on 04/20 R BG IPH IVH Hydrocephalus Brain compression Cerebral edema Encephalopathy, improving Respiratory failure, resolved Feeding difficulty Plan: -Q1 neuro checks -SBP<160 -EVD open at 20 cm H2O, monitor output hourly -ICP monitoring hourly. Call Neurosurgery for ICP>20mmHg for >15 minutes without stimulation -DVT ppx: SCDs; SQH okay -Keppra 500 mg BID for seizure ppx -Follow-up on CSF cx: NGTD -Continue Florinef, Q6 lytes -Daily weight checks -Advance diet as tolerated -Further care per Neuro ICU For questions please call NSGY pager [phone] Lisa Mckay APRN 04/29/2020 8:54 AM Clinical Documentation Improvement: Active Hospital Problems Diagnosis ??? 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 Intraventricular hemorrhage Resolved Hospital Problems No resolved problems to display. * Rajiv Xavier MD - 04/28/2020 3:19 PM EDT NEUROCRITICAL CARE PROGRESS NOTE Date of Admission: 04/20/2020 5:24 PM LOS: 8 ICU LOS: 7d 16h 24 Hour Events: -remains extubated -lethargic yesterday evening--stat head CT, 3rd and 4th appear open -left frontal EVD raised -Hyponatremic, fludrocortisone started -Sedation weaned -Nicardipine overnight Active Medications: ??? niCARdipine Stopped (04/28/20 0952) ??? tube feeding diet 85 mL/hr at 04/28/20 0600 ??? famotidine 40 mg Per NG tube Daily ??? potassium, sodium phosphates 3 g Per NG tube Q4H JOSE ??? fludrocortisone 0.1 mg Oral Daily ??? propranolol 20 mg Oral BID ??? lisinopriL 20 mg Oral Daily ??? amLODIPine 10 mg Oral Daily ??? cefTRIAXone 2 g Intravenous Q24H ??? polyethylene glycol (MIRALAX)oral powder 17 g Oral Daily ??? magnesium hydroxide 10 mL Oral Nightly ??? heparin (Porcine) 5,000 Units Subcutaneous Q8H JOSE ??? thiamine 100 mg Oral Daily ??? folic acid 1 mg Oral Daily ??? multivitamin with minerals 1 tablet Oral Daily ??? senna-docusate 2 tablet Oral BID ??? levETIRAcetam 500 mg Intravenous 2 times per day hydrALAZINE, albuteroL, Potassium supplement in solution, labetalol, enalaprilat, bisacodyL, [DISCONTINUED] acetaminophen OR acetaminophen OR [DISCONTINUED] acetaminophen, fentaNYL (PF) Vitals: Vital Sign Ranges: Last value Range last 24 hrs Temperature Temp: 37.5 ??C (99.5 ??F) Temp: [36.6 ??C (97.9 ??F)-38.1 ??C (100.6 ??F)] Heart Rate Heart Rate: 80 Heart Rate: [72-106] Blood Pressure BP: 149/65 BP: (127-199)/(52-79) Respiratory Rate Resp: 21 Resp: [18-25] SpO2 SpO2: 98 % SpO2: [95 %-98 %] Art BP BP (Arterial Line): 135/52 BP (Arterial Line): -- Intake/Output: I/O / 0701 - / 0700 / 0701 - 04/27 0700 / 0701 - 04/28 0700 / 0701 - 04/29 0700 P.O. 0 0 0 I.V. (mL/kg/hr) 2436.2 (1.5) 2518 (1.6) 993 (0.6) 126.2 (0.2) Blood Other 60 150 NG/GT 866 1223 1700 484 IV Piggyback 200 150 Total Intake(mL/kg) 3502.2 (53.4) 3741 (57) 2753 (41.7) 910.2 (13.8) Urine (mL/kg/hr) 2925 (1.9) 1175 (0.7) 675 (0.4) 775 (1.4) Emesis/NG output 0 0 Other 194 163 137 37 Stool 0 350 0 Total Output(mL/kg) 3119 (47.5) 1338 (20.4) 1162 (17.6) 812 (12.3) Net +383.2 +2403 +1591 +98.2 Urine Occurrence 8 x 4 x Stool Occurrence 2 x 0 x Emesis Occurrence 0 x 0 x Lines/Drains/Airways: Percutaneous Central Line - Triple Lumen 04/20/20 2050 subclavian vein, left (Active) Indication/Daily Review of Necessity Medications known to cause phlebitis (vasopressors, concentrated electrolytes, TPN, chemotherapy) 04/22/2020 8:00 AM Site Preparation/Maintenance dressing: dry and intact 04/22/2020 8:00 AM Needleless Connector change due 04/25/20 04/22/2020 4:00 AM Securement sutures, secured with 04/22/2020 8:00 AM Distal Patency/Maintenance needleless connector changed 04/22/2020 4:00 AM Medial Patency/Maintenance needleless connector changed 04/22/2020 4:00 AM Proximal Patency/Maintenance needleless connector changed 04/22/2020 4:00 AM Phlebitis 0-->no symptoms 04/22/2020 2:00 PM Infiltration 0-->no symptoms 04/22/2020 2:00 PM Site Signs/Symptoms no redness;no warmth;no swelling;no pain 04/22/2020 8:00 AM Peripheral IV Line - Single Lumen 04/20/20 1817 median cubital vein (antecubital fossa), left 18 gauge (Active) Indication/Daily Review of Necessity medication therapy continuous 04/22/2020 8:00 AM Site Preparation/Maintenance dressing: dry and intact 04/22/2020 8:00 AM Securement catheter stabilization device, secured with 04/22/2020 8:00 AM Patency/Maintenance flushed without difficulty;blood return, able to obtain;alcohol impregnated capapplied 04/22/2020 8:00 AM Phlebitis 0-->no symptoms 04/22/2020 12:00 PM Infiltration 0-->no symptoms 04/22/2020 12:00 PM Site Signs/Symptoms no redness;no warmth;no swelling;no pain;no palpable cord;no streak formation;no drainage 04/21/2020 8:00 PM Peripheral IV Line - Single Lumen 04/20/20 1831 median cubital vein (antecubital fossa), right 18 gauge (Active) Indication/Daily Review of Necessity medication therapy intermittent 04/22/2020 8:00 AM Site Preparation/Maintenance dressing: dry and intact 04/22/2020 8:00 AM Securement catheter stabilization device, secured with 04/22/2020 8:00 AM Patency/Maintenance flushed without difficulty;blood return, able to obtain;alcohol impregnated capapplied 04/22/2020 8:00 AM Phlebitis 0-->no symptoms 04/22/2020 2:00 PM Infiltration 0-->no symptoms 04/22/2020 2:00 PM Site Signs/Symptoms no swelling;no warmth;no redness;no pain;no palpable cord;no streak formation;no drainage 04/21/2020 8:00 PM External Catheter 04/21/20 1823 (Active) Securement secured to upper leg with adhesive device 04/21/2020 8:00 PM Skin no redness;no breakdown;penis/scrotum cleansed with soap and water;skin barrier applied 04/21/2020 8:00 PM Tolerance no signs/symptoms of discomfort 04/21/2020 8:00 PM Urine Output (mL) 120 04/22/2020 6:00 AM Naso/Oral Tube 04/20/20 1800 center mouth (Active) Placement Check Methods distal length tube measured 04/21/2020 8:00 PM Catheter Depth (cm) 60 cm 04/22/2020 8:00 AM Tolerance no adverse signs/symptoms 04/22/2020 8:00 AM Securement taped to ETT 04/22/2020 8:00 AM Clamp Status/Tolerance unclamped 04/22/2020 8:00 AM Suction Setting/Drainage Method low suction;continuous setting 04/22/2020 8:00 AM Drainage Color brown, light 04/21/2020 7:54 AM Drainage Consistency thin 04/21/2020 7:54 AM Insertion Site Appearance no warmth;no redness;no tenderness;no skin breakdown;no drainage 04/21/2020 7:54 AM Flush/Irrigation flushed with;water;flushed with ease 04/21/2020 8:00 PM Tube Intake (mL) 0 04/22/2020 12:00 PM General Intake (mL) 0 04/22/2020 8:00 AM General Output (mL) 0 04/22/2020 2:00 PM EVD (External Ventricular Drain) 04/20/201999 (Active) Distance Above Site (cm H2O) 0.1 m (3.94) 04/22/2020 8:00 AM Ventricular Drainage red 04/22/2020 8:00 AM Insertion Site dressing dry and intact 04/22/2020 8:00 AM Insertion Site Drainage dried 04/22/2020 8:00 AM Interventions open;zeroed 04/22/2020 8:00 AM General Output (mL) 26 04/22/2020 2:00 PM ETT Airway (Active) Airway Size Verification 7.5 mm 04/22/2020 11:15 AM Site center of mouth 04/22/2020 11:15 AM Appearance clean 04/22/2020 11:15 AM Tube Securement endotracheal (ET) tube swenson 04/22/2020 11:15 AM Tube Reference Point teeth 04/22/2020 11:15 AM Airway Tube Secured At (cm) 26 04/22/2020 11:15 AM Cuff Pressure (cm H2O/mLH2O) 24 04/22/2020 6:35 AM Tube Securement Date 04/20/20 04/22/2020 4:16 AM Bite Block none 04/22/2020 4:16 AM Manual Resuscitator at bedside Yes 04/22/2020 11:15 AM Arterial Line 04/20/202047 other (see comments) radial artery, left (Active) Dressing dressing dry and intact 04/22/2020 8:00 AM Arterial Catheter Securement catheter securement device utilized 04/22/2020 8:00 AM Lumen Patency/Care flushed without difficulty 04/22/2020 8:00 AM Phlebitis 0-->no symptoms 04/22/2020 2:00 PM Infiltration 0-->no symptoms 04/22/2020 2:00 PM Waveform normal 04/22/2020 8:00 AM Site Signs/Symptoms no redness;no swelling;no warmth;no pain 04/22/2020 8:00 AM Incision 04/22/20 0938 Right wrist non-laparascopic puncture (Active) Labs: No results found for: PHART, PO2ART, [id number] Recent Labs 04/28/20 0430 WBC 8.4 RBC 3.90* HGB 13.1* HCT 37.3* MCV 95.6* MCH 33.6* MCHC 35.1 PLATELET 244 RDWCV 12.3 Recent Labs 04/28/20 1053 04/28/20 0430 NA 130* 131* K -- 4.1 CL -- 98 CO2 -- 20* BUN -- 17 CREATININE -- 0.43* GLUCOSE -- 149 Imaging: No new Physical Exam: Gen Extubated, sitting upright in bed, NAD Neuro Eyes open spontaneously, requires stimulation for exam, oriented to person PERRL +Corneals +Cough MOTOR: RUE: squeezes, thumbs up to command LUE: follows, wiggles RLE: wiggles toes to command LLE: follows, wiggles COR RRR PUL Clear ABD soft. Mildly distended EXT cool, pulses present ASSESSMENT & PLAN: 60 year-old man with Right BG bleed and IVH with hydrocephalus (s/p EVD). # Neuro-?? > spontaneous??ICH: R caudate IPH with IVH > ETOH/substance abuse: UDS + cannabinoids and oxycodone - q2h neuro checks, VS - Keppra 500mg BID (received 1Gm load) - HOB > 30 deg -??EVD open/raised to 20 cmH2O, trend ICP/CPP; mgt per NSY - Stroke Neurology consult - analgesia: PRN Tylenol, Fentanyl -wean off precedex as tolerated ?? # CV - - SBP goal < 160 -norvac at 10, lisinopril 20 -nicardipine gtt prn -has prn labetalol ? # Pulm - -pulmonary toilet - Hflu PNA--c/w ceftriaxone ?? # GI - - resume enteral nutrition post extubation via NGT - IMPREGNATOR eval post-extubation -??maintain??bowel reg - GI ppx: pepcid IVP ?? # FEN/ - - hyponatremia. Serum/urine osm reviewed, possible SIADH vs HAT COPYIST, Fludrocortisone started by neurosurgery. Trial of fluid restriction yesterday without sig improvement in Na ?? # Heme - > hemochromatosis - goal Hgb > 7, INR < 1.5, Platelets > 100k -??daily CBC, check iron=96 - DVT ppx: SCDs - SQH ?? # Endo - - goal glucose 120-180 --> ISS??PRN # ID - - Low grade fever, will weathers-culture. -H Flu in sputum, CXR (04/28) without infiltrate. C/w ceftriaxone ?? # ICU Bundle Feeding: enteral feeds Analgesia: PRN Tylenol Sedation: None Thromboprophylaxis: SQH/SCDs ?? HOB > 30 degrees Ulcer prophylaxis: H2B Glycemic Control: goal glucose 120-180, ISS PRN SBT: yes ?? Bowel Reg: RBO Indwelling Catheters/Lines/Tubes: PIV x2, OGT (04/20), brewster (04/20-), ETT (04/20), left frontal EVD(04/20)--have d/c'd central line and zaira. De-escalate Antibiotics: Pending culture data ?? Code Status - Full Code ?? Dispo - ICU //////////////////////////////////////////////////////////////////////////////// //// Attestation: IS PATIENT CRITICALLY ILL ? Is there a high potential of sudden, clinically significant, or life threatening deterioration? YES Is there a need for direct personal assessment and management to treat/prevent multiple vital organfailure/deterioration? NO If this patient is not critically ill, the reason for continued hospitalization is: Intracerebral hemorrhage Intraventricular hemorrhage Altered mental status Alcohol withdrawal Hyponatremia I personally performed 25 minutes of aggregate care time exclusive of procedures and teaching. Thisincludes time spent during direct patient evaluation and reassessment, interpreting diagnostic tests, directing life and/or organ supporting interventions and documentation on the unit. * Alida Villarreal MD - 04/28/2020 8:18 AM EDT NEUROSURGERY PROGRESS NOTE ID: Ollie Burnett . is a 60 y.o. male with spontaneous R BG IPH with IVH leading to hydrocephalus s/p L EVD placement. INTERVAL Hx: Not as brisk and following commands in the left after 12 AM. Also not as verbal. This morning after some stimulation briskly followed commands on the right, was cursing when requested to follow commands on the left. MEDICATIONS: Scheduled Meds: ??? famotidine 40 mg Per NG tube Daily ??? potassium, sodium phosphates 3 g Per NG tube Q4H JOSE ??? lisinopriL 20 mg Oral Daily ??? amLODIPine 10 mg Oral Daily ??? cefTRIAXone 2 g Intravenous Q24H ??? polyethylene glycol (MIRALAX)oral powder 17 g Oral Daily ??? magnesium hydroxide 10 mL Oral Nightly ??? heparin (Porcine) 5,000 Units Subcutaneous Q8H JOSE ??? thiamine 100 mg Oral Daily ??? folic acid 1 mg Oral Daily ??? multivitamin with minerals 1 tablet Oral Daily ??? senna-docusate 2 tablet Oral BID ??? levETIRAcetam 500 mg Intravenous 2 times per day Continuous Infusions: ??? niCARdipine 7.5 mg/hr (04/28/20 0600) ??? tube feeding diet 85 mL/hr at 04/28/20 0600 PRN: hydrALAZINE, 5 mg, Q4H PRN albuteroL, 2 puff, Q6H PRN Potassium supplement in solution, 20-60 mEq, Q4H PRN labetalol, 10-20 mg, Q15 Min PRN enalaprilat, 1.25 mg, Q6H PRN bisacodyL, 10 mg, Daily PRN acetaminophen, 975 mg, Q6H PRN fentaNYL (PF), 25 mcg, Q30 Min PRN EXAM: Temp: [36.6 ??C (97.9 ??F)-38.1 ??C (100.6 ??F)] Heart Rate: [72-106] Resp: [14-25] BP: (137-199)/(58-85) SpO2: [95 %-99 %] Heart Rate from SpO2: [62 bpm-103 bpm] I/O: Intake/Output Summary (Last 24 hours) at 04/28/2020 0818 Last data filed at 04/28/2020 0800 Gross per 24 hour Intake 2641 ml Output 1228 ml Net 1413 ml Drains: L frontal EVD @ 10 cm H2O, output = 125 cc x 24h (bloody output) ICPs 3-11 NEURO: AOx1 (self) E3 M6 V3 PERRL MOTOR: RUE: follows commands, thumbs up LUE: No M6 but moves spontaneously RLE: follow commands, wiggles toes LLE: No M6 but moves spontaneously LABS: Recent Labs 04/28/20 0430 04/27/20 0215 04/26/20 0150 WBC 8.4 7.0 8.5 HGB 13.1* 11.3* 11.6* PLATELET 244 189 157 Recent Labs 04/28/20 0430 04/27/20 2224 04/27/20 1430 04/27/20 0215 04/26/20 0640 04/26/20 0150 NA 131* 133* 133* < > 133* -- 136 K 4.1 -- -- -- 3.8 3.6 3.7 CL 98 -- -- -- 99 -- 103 CO2 20* -- -- -- 23 -- 25 BUN 17 -- -- -- 12 -- 13 CREATININE 0.43* -- -- -- 0.42* -- 0.43* < > = values in this interval not displayed. No results for input(s): PT, INR in the last 72 hours. IMAGING: MRI brain wo 04/23 1. Scattered punctate cortical and white matter acute infarcts, likely microembolic, RIGHT greater than LEFT. 2. Redemonstrated large amount of intraventricular hemorrhage dissecting from the RIGHT caudate head and globus pallidus, with persistent hydrocephalus and regional mass effect as described above. CT head 04/22 IMPRESSION No significant interval change. MRI brain 04/21 IMPRESSION Right basal ganglia parenchymal hemorrhage with intraventricular extension and ventricular enlargement. No evidence of underlying parenchymal enhancing mass. CTH 04/27: IMPRESSION 1. Grossly stable right basal ganglia hemorrhage with intraventricular extension with some interval redistribution of the hemorrhage within the third and fourth ventricle. Unchanged lateral ventriculomegaly with stable right to left midline shift. 2. Scattered punctate cortical infarcts corresponding to recent MR. No new large territorial infarct. Assessment: Ollie Burnett Sr. is a 60 y.o. male with R BG IPH with IVH leading to hydrocephalus s/p L EVD placement. DSA 04/22 without aneurysm or vascular malformation. With change in neuro exam post DSA and having been started on phenobarbital for ETOH withdrawal, repeat CT head stable. MRI with tiny scattered acute infarcts does not provide explanation for change in exam. Patient was extubated on 04/26. Today patient continues to follow commands in the right and is not cooperative with left side examination. Problem List: Possible cerebral salt wasting Hyponatremia UTI S/p EVD placement on 04/20 R BG IPH IVH Hydrocephalus Brain compression Cerebral edema Encephalopathy, improving Respiratory failure, resolved Feeding difficulty Plan: -Q1 neuro checks -SBP<160 -EVD open at 20 cm H2O, monitor output -ICP monitoring hourly. Call Neurosurgery for ICP>20mmHg for >15mins without stimulation -DVT ppx: SCDs; SQH -Keppra 500 mg BID for seizure ppx -Follow-up on CSF cx: NGTD -? Start fludrocortisone -q6 lytes -Daily weight checks -Minimize sedation -CTH from yesterday revealed significant interventricular hemorrhage burden but without change frombefore For questions please call NSGY pager [phone] Saad Guaman DO 04/28/2020 8:18 AM Clinical Documentation Improvement: Active Hospital Problems Diagnosis ??? 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 Intraventricular hemorrhage Resolved Hospital Problems No resolved problems to display. * Harry Malloy, RN - 04/28/2020 8:06 AM EDT OUTCOME EVALUATION NOTE: OUTCOME SUMMARY: -Worsening neuro exam in AM. Pt increasingly lethargic at 0000, Precedex off. Requiring significantpainful stimuli to arouse and not following commands on LUE/LLE. Exam variable in AM hours but pt remains lethargic and follows commands intermittently. -Strong cough. Does expectorate but swallows sputum before it can be assessed. No O2 demands overnight. -Slightly tachycardic to 110 with Precedex off. Started on Nicardipine for SBP refractory to Labetalol/Fentanyl/Hydralazine. -UOP decreased overnight but still more than adequate. Na continues to be low, 131 in AM. -Updated DTR Susanna in AM. She reiterated that she would like nrs to help facilitate a video callwith pt at 1300 today. Discussed this in report with oncoming RN. PLAN MOVING FORWARD: -Q2hr neuro exams -EVD open at 10cm, ICP Q1hr, Drain Q2hr -Q6hr Na -Keep SBP <160 -Assist family with virtual visit * Cecille Amaya RN - 04/27/2020 7:49 PM EDT OUTCOME EVALUATION NOTE: OUTCOME SUMMARY: Neuro exam remains unchanged, however patient continues to be lethargic despite beginning to wean Precedex. EVD remains open @ 10, ICPS <10 and drainage 3-20mL Q2. NSGY notified for outputs <10mL. CT pending to assess for changes. PRNs given to maintain SBP goals. Condom catheter removed after it was not effectively catching urine, briefs used intermittently and linen changed frequently. Daughter updated, requested for video call with patient tomorrow @ 1300. Message passed along to oncoming RN. PLAN MOVING FORWARD: Head CT SBP <160 Q6 Sodium Q1 ICPS/Q2 drainage INDIVIDUALIZED FALL PREVENTION INTERVENTIONS: Patient-specific fall risk factors per assessment: [current deficits]: Generalized weakness, EVD, IV lines Assistance [level of assistance required for transfers and ambulation]: X2 assist Supervision [direct monitoring required during toileting and ADLs]: X2 assist Surveillance [continuous indirect monitoring]: Purposeful Gerry padron monitoring * Rajiv Xavier MD - 04/27/2020 11:28 AM EDT NEUROCRITICAL CARE PROGRESS NOTE Date of Admission: 04/20/2020 5:24 PM LOS: 7 ICU LOS: 6d 13h 24 Hour Events: -extubated -neuro exam improved -left frontal EVD remains open @10 -Hyponatremic Active Medications: ??? dexmedetomidine 0.4 mcg/kg/hr (04/27/20 0600) ??? tube feeding diet 85 mL/hr at 04/27/20 0600 ??? potassium, sodium phosphates 3 g Per NG tube Q4H JOSE ??? [START ON 04/28/2020] lisinopriL 20 mg Oral Daily ??? lisinopriL 10 mg Oral Once ??? amLODIPine 10 mg Oral Daily ??? cefTRIAXone 2 g Intravenous Q24H ??? polyethylene glycol (MIRALAX)oral powder 17 g Oral Daily ??? magnesium hydroxide 10 mL Oral Nightly ??? heparin (Porcine) 5,000 Units Subcutaneous Q8H JOSE ??? thiamine 100 mg Oral Daily ??? folic acid 1 mg Oral Daily ??? multivitamin with minerals 1 tablet Oral Daily ??? senna-docusate 2 tablet Oral BID ??? famotidine 20 mg Intravenous 2 times per day ??? levETIRAcetam 500 mg Intravenous 2 times per day hydrALAZINE, albuteroL, Potassium supplement in solution, labetalol, enalaprilat, bisacodyL, [DISCONTINUED] acetaminophen OR acetaminophen OR [DISCONTINUED] acetaminophen, fentaNYL (PF) Vitals: Vital Sign Ranges: Last value Range last 24 hrs Temperature Temp: 37.5 ??C (99.5 ??F) Temp: [36.5 ??C (97.7 ??F)-37.5 ??C (99.5 ??F)] Heart Rate Heart Rate: 73 Heart Rate: [67-85] Blood Pressure BP: 156/70 BP: (124-188)/(61-90) Respiratory Rate Resp: 21 Resp: [13-28] SpO2 SpO2: 97 % SpO2: [93 %-100 %] Art BP BP (Arterial Line): 135/52 BP (Arterial Line): -- Intake/Output: I/O / 0701 - /04 0700 06/04 0701 - 06/05 0700 06/05 0701 - / 0700 06/06 0701 - /07 0700 P.O. 0 0 0 I.V. (mL/kg/hr) 2958.8 (1.9) 2436.2 (1.5) 2518 (1.6) 131 (0.4) Blood 0 Other 0 60 NG/GT 4965 249 8373 125 IV Piggyback 600 200 Total Intake(mL/kg) 5087.8 (77.6) 3502.2 (53.4) 3741 (57) 316 (4.8) Urine (mL/kg/hr) 3500 (2.2) 2925 (1.9) 1175 (0.7) 175 (0.6) Emesis/NG output 0 0 Other 100 194 163 20 Stool 0 0 0 Blood Total Output(mL/kg) 3600 (54.9) 3119 (47.5) 1338 (20.4) 195 (3) Net +1487.8 +383.2 +2403 +121 Urine Occurrence 8 x 1 x Stool Occurrence 1 x 2 x 0 x Emesis Occurrence 0 x 0 x Lines/Drains/Airways: Percutaneous Central Line - Triple Lumen 04/20/202049 subclavian vein, left (Active) Indication/Daily Review of Necessity Medications known to cause phlebitis (vasopressors, concentrated electrolytes, TPN, chemotherapy) 04/22/2020 8:00 AM Site Preparation/Maintenance dressing: dry and intact 04/22/2020 8:00 AM Needleless Connector change due 04/25/20 04/22/2020 4:00 AM Securement sutures, secured with 04/22/2020 8:00 AM Distal Patency/Maintenance needleless connector changed 04/22/2020 4:00 AM Medial Patency/Maintenance needleless connector changed 04/22/2020 4:00 AM Proximal Patency/Maintenance needleless connector changed 04/22/2020 4:00 AM Phlebitis 0-->no symptoms 04/22/2020 2:00 PM Infiltration 0-->no symptoms 04/22/2020 2:00 PM Site Signs/Symptoms no redness;no warmth;no swelling;no pain 04/22/2020 8:00 AM Peripheral IV Line - Single Lumen 04/20/20 1817 median cubital vein (antecubital fossa), left 18 gauge (Active) Indication/Daily Review of Necessity medication therapy continuous 04/22/2020 8:00 AM Site Preparation/Maintenance dressing: dry and intact 04/22/2020 8:00 AM Securement catheter stabilization device, secured with 04/22/2020 8:00 AM Patency/Maintenance flushed without difficulty;blood return, able to obtain;alcohol impregnated capapplied 04/22/2020 8:00 AM Phlebitis 0-->no symptoms 04/22/2020 12:00 PM Infiltration 0-->no symptoms 04/22/2020 12:00 PM Site Signs/Symptoms no redness;no warmth;no swelling;no pain;no palpable cord;no streak formation;no drainage 04/21/2020 8:00 PM Peripheral IV Line - Single Lumen 04/20/20 1831 median cubital vein (antecubital fossa), right 18 gauge (Active) Indication/Daily Review of Necessity medication therapy intermittent 04/22/2020 8:00 AM Site Preparation/Maintenance dressing: dry and intact 04/22/2020 8:00 AM Securement catheter stabilization device, secured with 04/22/2020 8:00 AM Patency/Maintenance flushed without difficulty;blood return, able to obtain;alcohol impregnated capapplied 04/22/2020 8:00 AM Phlebitis 0-->no symptoms 04/22/2020 2:00 PM Infiltration 0-->no symptoms 04/22/2020 2:00 PM Site Signs/Symptoms no swelling;no warmth;no redness;no pain;no palpable cord;no streak formation;no drainage 04/21/2020 8:00 PM External Catheter 04/21/20 1823 (Active) Securement secured to upper leg with adhesive device 04/21/2020 8:00 PM Skin no redness;no breakdown;penis/scrotum cleansed with soap and water;skin barrier applied 04/21/2020 8:00 PM Tolerance no signs/symptoms of discomfort 04/21/2020 8:00 PM Urine Output (mL) 120 04/22/2020 6:00 AM Naso/Oral Tube 04/20/20 1800 center mouth (Active) Placement Check Methods distal length tube measured 04/21/2020 8:00 PM Catheter Depth (cm) 60 cm 04/22/2020 8:00 AM Tolerance no adverse signs/symptoms 04/22/2020 8:00 AM Securement taped to ETT 04/22/2020 8:00 AM Clamp Status/Tolerance unclamped 04/22/2020 8:00 AM Suction Setting/Drainage Method low suction;continuous setting 04/22/2020 8:00 AM Drainage Color brown, light 04/21/2020 7:54 AM Drainage Consistency thin 04/21/2020 7:54 AM Insertion Site Appearance no warmth;no redness;no tenderness;no skin breakdown;no drainage 04/21/2020 7:54 AM Flush/Irrigation flushed with;water;flushed with ease 04/21/2020 8:00 PM Tube Intake (mL) 0 04/22/2020 12:00 PM General Intake (mL) 0 04/22/2020 8:00 AM General Output (mL) 0 04/22/2020 2:00 PM EVD (External Ventricular Drain) 04/20/201999 (Active) Distance Above Site (cm H2O) 0.1 m (3.94) 04/22/2020 8:00 AM Ventricular Drainage red 04/22/2020 8:00 AM Insertion Site dressing dry and intact 04/22/2020 8:00 AM Insertion Site Drainage dried 04/22/2020 8:00 AM Interventions open;zeroed 04/22/2020 8:00 AM General Output (mL) 26 04/22/2020 2:00 PM ETT Airway (Active) Airway Size Verification 7.5 mm 04/22/2020 11:15 AM Site center of mouth 04/22/2020 11:15 AM Appearance clean 04/22/2020 11:15 AM Tube Securement endotracheal (ET) tube swenson 04/22/2020 11:15 AM Tube Reference Point teeth 04/22/2020 11:15 AM Airway Tube Secured At (cm) 26 04/22/2020 11:15 AM Cuff Pressure (cm H2O/mLH2O) 24 04/22/2020 6:35 AM Tube Securement Date 04/20/20 04/22/2020 4:16 AM Bite Block none 04/22/2020 4:16 AM Manual Resuscitator at bedside Yes 04/22/2020 11:15 AM Arterial Line 04/20/202047 other (see comments) radial artery, left (Active) Dressing dressing dry and intact 04/22/2020 8:00 AM Arterial Catheter Securement catheter securement device utilized 04/22/2020 8:00 AM Lumen Patency/Care flushed without difficulty 04/22/2020 8:00 AM Phlebitis 0-->no symptoms 04/22/2020 2:00 PM Infiltration 0-->no symptoms 04/22/2020 2:00 PM Waveform normal 04/22/2020 8:00 AM Site Signs/Symptoms no redness;no swelling;no warmth;no pain 04/22/2020 8:00 AM Incision 04/22/20 0938 Right wrist non-laparascopic puncture (Active) Labs: No results found for: PHART, PO2ART, HXL1CFF Recent Labs 04/27/20 0215 WBC 7.0 RBC 3.37* HGB 11.3* HCT 33.0* MCV 97.9* MCH 33.5* MCHC 34.2 PLATELET 189 RDWCV 12.3 Recent Labs 04/27/20 0635 04/27/20 0215 NA 129* 133* K -- 3.8 CL -- 99 CO2 -- 23 BUN -- 12 CREATININE -- 0.42* GLUCOSE -- 137 Imaging: No new Physical Exam: Gen Extubated, NAD Neuro Eyes open to voice, awakens easily oriented to person PERRL +Corneals +Cough MOTOR: RUE: squeezes, thumbs up to command LUE: follows, wiggles RLE: wiggles toes to command LLE: follows, wiggles COR RRR PUL Clear ABD soft. Mildly distended EXT cool, pulses present ASSESSMENT & PLAN: 60 year-old man with Right BG bleed and IVH with hydrocephalus (s/p EVD). # Neuro-?? > spontaneous??ICH: R caudate IPH with IVH > ETOH/substance abuse: UDS + cannabinoids and oxycodone - q2h neuro checks, VS - Keppra 500mg BID (received 1Gm load) - HOB > 30 deg -??EVD open at??[id number], trend ICP/CPP; mgt per NSY - Stroke Neurology consult - analgesia: PRN Tylenol, Fentanyl -wean off precedex as tolerated ?? # CV - - SBP goal < 160 -norvac at 10, will increase lisinopril to 20 -has prn labetalol ? # Pulm - -pulmonary toilet - Hflu PNA--c/w ceftriaxone ?? # GI - - resume enteral nutrition post extubation via NGT - IMPREGNATOR eval post-extubation -??maintain??bowel reg - GI ppx: pepcid IVP ?? # FEN/ - - hyponatremia. Serum/urine osm reviewed, possible SIADH, Will trial fluid restriction and repeat Na today. ?? # Heme - > hemochromatosis - goal Hgb > 7, INR < 1.5, Platelets > 100k -??daily CBC, check iron=96 - DVT ppx: SCDs - SQH ?? # Endo - - goal glucose 120-180 --> ISS??PRN # ID - - H Flu in sputum, CXR without infiltrate. C/w ceftriaxone ?? # ICU Bundle Feeding: enteral feeds Analgesia: PRN Tylenol Sedation: None Thromboprophylaxis: SQH/SCDs ?? HOB > 30 degrees Ulcer prophylaxis: H2B Glycemic Control: goal glucose 120-180, ISS PRN SBT: yes ?? Bowel Reg: RBO Indwelling Catheters/Lines/Tubes: PIV x2, OGT (04/20), brewster (04/20-), ETT (04/20), left frontal EVD(04/20)--have d/c'd central line and zaira. De-escalate Antibiotics: Pending culture data ?? Code Status - Full Code ?? Dispo - ICU //////////////////////////////////////////////////////////////////////////////// //// Attestation: IS PATIENT CRITICALLY ILL ? Is there a high potential of sudden, clinically significant, or life threatening deterioration? YES Is there a need for direct personal assessment and management to treat/prevent multiple vital organfailure/deterioration? NO If this patient is not critically ill, the reason for continued hospitalization is: Intracerebral hemorrhage Intraventricular hemorrhage Altered mental status Alcohol withdrawal Hyponatremia I personally performed 25 minutes of aggregate care time exclusive of procedures and teaching. Thisincludes time spent during direct patient evaluation and reassessment, interpreting diagnostic tests, directing life and/or organ supporting interventions and documentation on the unit. * Harry Malloy, RN - 04/27/2020 8:39 AM EDT OUTCOME EVALUATION NOTE: OUTCOME SUMMARY: -Neuro exam improved overnight. Pt conversing appropriately but remains intermittently confused andconsistently attempts to pull at L/T/D. Starting to move LUE/LLE more consistently and following commands well. ICPs stable, EVD drsg changed r/t dislodgement and dried drainage. -Weaned off O2 in AM, O2 sat >95% on RA. -Continues to by hypertensive, requiring Labetalol PRN x4. -Voiding large amts clear yellow urine. Condom catheter left off for several hours r/t skin irritation. Back on in AM for specimen collection and urinary diversion. Changed bed linens x7 overnight. -Updated DTR Susanna in AM. They would like to video call with pt today if possible. Notified oncoming RN. PLAN MOVING FORWARD: -Q2hr neuro exams -Keep SBP <160 -EVD open at 10cm, measure ICPs hourly and drainage Q2hrs -Frequent reorientation for confusion. -Attempt accurate urine monitoring for low Na and high output. * Saad Guaman, DO - 04/27/2020 8:02 AM EDT NEUROSURGERY PROGRESS NOTE ID: Ollie Burnett Sr. is a 60 y.o. male with spontaneous R BG IPH with IVH leading to hydrocephalus s/p L EVD placement. INTERVAL Hx: Much more awake this morning Following commands in all 4 extremities, less so in the left lower extremity Per report was conversive with the nurse overnight MEDICATIONS: Scheduled Meds: ??? potassium, sodium phosphates 3 g Per NG tube Q4H JOSE ??? lisinopriL 10 mg Oral Daily ??? amLODIPine 10 mg Oral Daily ??? cefTRIAXone 2 g Intravenous Q24H ??? polyethylene glycol (MIRALAX)oral powder 17 g Oral Daily ??? magnesium hydroxide 10 mL Oral Nightly ??? heparin (Porcine) 5,000 Units Subcutaneous Q8H JOSE ??? thiamine 100 mg Oral Daily ??? folic acid 1 mg Oral Daily ??? multivitamin with minerals 1 tablet Oral Daily ??? senna-docusate 2 tablet Oral BID ??? famotidine 20 mg Intravenous 2 times per day ??? levETIRAcetam 500 mg Intravenous 2 times per day Continuous Infusions: ??? sodium chloride 0.9% 75 mL/hr (04/27/20599) ??? dexmedetomidine 0.4 mcg/kg/hr (04/27/20599) ??? tube feeding diet 85 mL/hr at 04/27/20599 PRN: hydrALAZINE, 5 mg, Q4H PRN albuteroL, 2 puff, Q6H PRN Potassium supplement in solution, 20-60 mEq, Q4H PRN labetalol, 10-20 mg, Q15 Min PRN enalaprilat, 1.25 mg, Q6H PRN bisacodyL, 10 mg, Daily PRN acetaminophen, 975 mg, Q6H PRN fentaNYL (PF), 25 mcg, Q30 Min PRN EXAM: Temp: [36.5 ??C (97.7 ??F)-37.4 ??C (99.3 ??F)] Heart Rate: [67-85] Resp: [13-28] BP: (124-188)/(61-90) SpO2: [93 %-100 %] Heart Rate from SpO2: [58 bpm-83 bpm] I/O: Intake/Output Summary (Last 24 hours) at 04/27/2020 0802 Last data filed at 04/27/2020 0600 Gross per 24 hour Intake 3566 ml Output 1271 ml Net 2295 ml Drains: L frontal EVD @ 10 cm H2O, output = 155cc x 24h (bloody output) ICPs 3-11 NEURO: E4 M6 V2 PERRL MOTOR: RUE: follows commands, thumbs up LUE: follows commands , thumbs up RLE: follow commands, wiggles toes LLE: Follows commands, wiggles toes LABS: Recent Labs 04/27/20 0215 04/26/20 0150 04/25/20 0110 WBC 7.0 8.5 11.3* HGB 11.3* 11.6* 12.0* PLATELET 189 157 141* Recent Labs 04/27/20 0635 04/27/20 0215 04/26/20 0640 04/26/20 0150 04/25/20 0110 NA 129* 133* -- 136 138 K -- 3.8 3.6 3.7 3.7 CL -- 99 -- 103 104 CO2 -- 23 -- 25 24 BUN -- 12 -- 13 14 CREATININE -- 0.42* -- 0.43* 0.43* No results for input(s): PT, INR in the last 72 hours. IMAGING: MRI brain wo 04/23 1. Scattered punctate cortical and white matter acute infarcts, likely microembolic, RIGHT greater than LEFT. 2. Redemonstrated large amount of intraventricular hemorrhage dissecting from the RIGHT caudate head and globus pallidus, with persistent hydrocephalus and regional mass effect as described above. CT head 04/22 IMPRESSION No significant interval change. MRI brain 04/21 IMPRESSION Right basal ganglia parenchymal hemorrhage with intraventricular extension and ventricular enlargement. No evidence of underlying parenchymal enhancing mass. Assessment: Ollie Burnett Sr. is a 60 y.o. male with R BG IPH with IVH leading to hydrocephalus s/p L EVD placement. DSA 04/22 without aneurysm or vascular malformation. With change in neuro exam post DSA and having been started on phenobarbital for ETOH withdrawal, repeat CT head stable. MRI with tiny scattered acute infarcts does not provide explanation for change in exam. Patient was extubated on 04/26. Today patient is much more awake and following commands. Problem List: UTI S/p EVD placement on 04/20 R BG IPH IVH Hydrocephalus Brain compression Cerebral edema Encephalopathy, improving Respiratory failure, resolved Feeding difficulty Plan: -Q1 neuro checks -SBP<160 -EVD open at 10 cm H2O, monitor output -ICP monitoring hourly. Call Neurosurgery for ICP>20mmHg for >15mins without stimulation -DVT ppx: SCDs; SQH -Keppra 500 mg BID for seizure ppx -Follow-up on CSF cx: NGTD -No new Rec For questions please call NSGY pager [phone] Saad Guaman DO 04/27/2020 8:02 AM Clinical Documentation Improvement: Active Hospital Problems Diagnosis ??? 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 Intraventricular hemorrhage Resolved Hospital Problems No resolved problems to display. Associated attestation - Jana Trinh MD - 04/27/2020 11:00 AM EDT I saw and examined the patient independently. I agree with Dr. Guaman's assessment and plan. Mr. Burnett is neurologically improved. He is now extubated and following commands briskly. He is confused and conversant. We will continue EVD today, will likely try to wean the EVD over the next few days if he remains clinically stable. * Isi Abdi RD - 04/26/2020 4:00 PM EDT Nutrition Progress Note Ollie Burnett Sr. is a 60 y.o. male admitted with right BG bleed and IVH with HC (s/p EVD), relevant medical history includes ETOH abuse and hemochromatosis. Reason for intervention: ICU Tube-feeding Nutrition Recommendations: If unable to advance diet, then continue enteral feeds at goal rate, limiting holds as able. Patient has only averaged 53% of goal volumes the last 3 days. Monitor Mg and Phos at least twice weekly please. Biweekly weights appreciated. All Active TF Orders: Promote with a goal rate of 85 ml per hour. This rate is calculated to compensate for unplanned time off feedings due to potential procedures, etc. At goal, this will provide 1700 ml formula, 1700 calories, 106 grams protein, 1426 ml water from formula + 0 ml water from protein powder administration and 100% of RDI's for vitamins and minerals. Enteral access: OGT Oxygen Therapy/airway: O2 Device: Ventilator Lab Results Component Value Date NA 136 04/26/2020 K 3.6 04/26/2020 CL 103 04/26/2020 CO2 25 04/26/2020 BUN 13 04/26/2020 CREATININE 0.43 (L) 04/26/2020 GFRAA 144 04/26/2020 MAGNESIUM 0.78 04/26/2020 CALCIUM 7.9 (L) 04/26/2020 PHOS 3.1 04/26/2020 AST 69 (H) 04/22/2020 ALT 84 (H) 04/22/2020 ALKPHOS 50 04/22/2020 BILITOT 0.9 04/22/2020 BILIDIR 0.5 (H) 04/22/2020 IRON 96 04/21/2020 No results found for: POCGLU Skin Status: Shift Pressure Injury Prevention Occiput: No Injury Thoracic Spine: No Injury Sacral: No Injury Ischial - left: No Injury Ischial - right: No Injury Heel - left: No Injury Heel - right: No Injury Elbow - left: No Injury Elbow - right: No Injury Device Sites: ETT, OG, O2 sat monitor, wrist restraints, IV sites Other Sites: EVD Relevant medications: pepcid, folvite, MVI with minerals, bowel meds, thiamine, liquid tylenol, others noted. Last Bowel Movement: 04/25/20 I/O from last 2 shifts: Intake/Output Summary (Last 24 hours) at 04/26/2020 1600 Last data filed at 04/26/2020 1400 Gross per 24 hour Intake 1560 ml Output 2483 ml Net -923 ml Admit Weight: 62.6 kg Estimated body mass index is 23.24 kg/m?? as calculated from the following: Height as of this encounter: 168 cm (5' 6.14). Weight as of this encounter: 65.6 kg (144 lb 10 oz). Bryant Body Weight: n/a Usual Body Weight: n/a Wt Readings from Last 10 Encounters: 04/23/20 65.6 kg (144 lb 10 oz) Patient Vitals for the past 168 hrs: Weight 04/23/20 0100 65.6 kg (144 lb 10 oz) 04/22/20 0400 65.9 kg (145 lb 4.5 oz) 04/20/20 2102 62.6 kg (138 lb) Assessment: Nutrition intake and intake history/Interview: n/a Estimated needs: Calories: 8795-9097 (25-30 kcal/kg) Protein: 99 grams (1.5 g/kg) Average tube feeding provision over past 3 days; 903mL vs daily goal volume of 1700 mL formula (53%of goal) Tolerance or barriers to meeting needs: holds on TFs. Nutrition Focused Physical Exam (NFPE): Not performed Protein-calorie Malnutrition: Not identified (Cora, JPEN J Parenteral Enteral Nutr. 2011; 36(3): 273-83) Nutrition to continue to follow up while inpatient JEANETTE LÓPEZ Pager #:[phone] * Rajiv Xavier MD - 04/26/2020 3:42 PM EDT NEUROCRITICAL CARE PROGRESS NOTE Date of Admission: 04/20/2020 5:24 PM LOS: 6 ICU LOS: 5d 17h 24 Hour Events: -improved neuro exam; more alert and now moving LUE -Passed SBT, extubated today -sputum grew HFLU -left frontal EVD @10 -several BM overnight Active Medications: ??? sodium chloride 0.9% 75 mL/hr (04/25/202011) ??? dexmedetomidine 0.8 mcg/kg/hr (04/26/20 0732) ??? tube feeding diet Stopped (04/25/20 1400) ??? lisinopriL 10 mg Oral Daily ??? amLODIPine 10 mg Oral Daily ??? cefTRIAXone 2 g Intravenous Q24H ??? polyethylene glycol (MIRALAX)oral powder 17 g Oral Daily ??? magnesium hydroxide 10 mL Oral Nightly ??? heparin (Porcine) 5,000 Units Subcutaneous Q8H JOSE ??? thiamine 100 mg Oral Daily ??? folic acid 1 mg Oral Daily ??? multivitamin with minerals 1 tablet Oral Daily ??? senna-docusate 2 tablet Oral BID ??? chlorhexidine 15 mL Oral BID ??? famotidine 20 mg Intravenous 2 times per day ??? levETIRAcetam 500 mg Intravenous 2 times per day albuteroL, Potassium supplement in solution, labetalol, enalaprilat, bisacodyL, [DISCONTINUED] acetaminophen OR acetaminophen OR [DISCONTINUED] acetaminophen, fentaNYL (PF) Vitals: Vital Sign Ranges: Last value Range last 24 hrs Temperature Temp: 37 ??C (98.6 ??F) Temp: [36.5 ??C (97.7 ??F)-38 ??C (100.4 ??F)] Heart Rate Heart Rate: 80 Heart Rate: [61-96] Blood Pressure BP: 140/71 BP: (134-188)/(63-98) Respiratory Rate Resp: 20 Resp: [18-32] SpO2 SpO2: 100 % SpO2: [93 %-100 %] Art BP BP (Arterial Line): 135/52 BP (Arterial Line): -- Intake/Output: I/O 06/02 0701 - 06/03 0700 06/03 0701 - /04 0700 06/04 0701 - / 0700 06/05 0701 - 06/ 0700 P.O. 0 0 0 I.V. (mL/kg/hr) 2339.1 (1.5) 2958.8 (1.9) 2436.2 (1.5) Blood 0 0 Other 0 0 NG/GT 943 1529 866 175 IV Piggyback 941 600 200 Total Intake(mL/kg) 4223.1 (64.4) 5087.8 (77.6) 3502.2 (53.4) 175 (2.7) Urine (mL/kg/hr) 2215 (1.4) 3500 (2.2) 2925 (1.9) 600 (1.1) Emesis/NG output 0 0 Other 193 100 194 61 Stool 0 0 0 Blood 0 Total Output(mL/kg) 2408 (36.7) 3600 (54.9) 3119 (47.5) 661 (10.1) Net +1815.1 +1487.8 +383.2 -486 Urine Occurrence 3 x Stool Occurrence 0 x 1 x 2 x Emesis Occurrence 0 x 0 x Lines/Drains/Airways: Percutaneous Central Line - Triple Lumen 04/20/202049 subclavian vein, left (Active) Indication/Daily Review of Necessity Medications known to cause phlebitis (vasopressors, concentrated electrolytes, TPN, chemotherapy) 04/22/2020 8:00 AM Site Preparation/Maintenance dressing: dry and intact 04/22/2020 8:00 AM Needleless Connector change due 04/25/20 04/22/2020 4:00 AM Securement sutures, secured with 04/22/2020 8:00 AM Distal Patency/Maintenance needleless connector changed 04/22/2020 4:00 AM Medial Patency/Maintenance needleless connector changed 04/22/2020 4:00 AM Proximal Patency/Maintenance needleless connector changed 04/22/2020 4:00 AM Phlebitis 0-->no symptoms 04/22/2020 2:00 PM Infiltration 0-->no symptoms 04/22/2020 2:00 PM Site Signs/Symptoms no redness;no warmth;no swelling;no pain 04/22/2020 8:00 AM Peripheral IV Line - Single Lumen 04/20/201816 median cubital vein (antecubital fossa), left 18 gauge (Active) Indication/Daily Review of Necessity medication therapy continuous 04/22/2020 8:00 AM Site Preparation/Maintenance dressing: dry and intact 04/22/2020 8:00 AM Securement catheter stabilization device, secured with 04/22/2020 8:00 AM Patency/Maintenance flushed without difficulty;blood return, able to obtain;alcohol impregnated capapplied 04/22/2020 8:00 AM Phlebitis 0-->no symptoms 04/22/2020 12:00 PM Infiltration 0-->no symptoms 04/22/2020 12:00 PM Site Signs/Symptoms no redness;no warmth;no swelling;no pain;no palpable cord;no streak formation;no drainage 04/21/2020 8:00 PM Peripheral IV Line - Single Lumen 04/20/20 1831 median cubital vein (antecubital fossa), right 18 gauge (Active) Indication/Daily Review of Necessity medication therapy intermittent 04/22/2020 8:00 AM Site Preparation/Maintenance dressing: dry and intact 04/22/2020 8:00 AM Securement catheter stabilization device, secured with 04/22/2020 8:00 AM Patency/Maintenance flushed without difficulty;blood return, able to obtain;alcohol impregnated capapplied 04/22/2020 8:00 AM Phlebitis 0-->no symptoms 04/22/2020 2:00 PM Infiltration 0-->no symptoms 04/22/2020 2:00 PM Site Signs/Symptoms no swelling;no warmth;no redness;no pain;no palpable cord;no streak formation;no drainage 04/21/2020 8:00 PM External Catheter 04/21/20 1823 (Active) Securement secured to upper leg with adhesive device 04/21/2020 8:00 PM Skin no redness;no breakdown;penis/scrotum cleansed with soap and water;skin barrier applied 04/21/2020 8:00 PM Tolerance no signs/symptoms of discomfort 04/21/2020 8:00 PM Urine Output (mL) 120 04/22/2020 6:00 AM Naso/Oral Tube 04/20/20 1800 center mouth (Active) Placement Check Methods distal length tube measured 04/21/2020 8:00 PM Catheter Depth (cm) 60 cm 04/22/2020 8:00 AM Tolerance no adverse signs/symptoms 04/22/2020 8:00 AM Securement taped to ETT 04/22/2020 8:00 AM Clamp Status/Tolerance unclamped 04/22/2020 8:00 AM Suction Setting/Drainage Method low suction;continuous setting 04/22/2020 8:00 AM Drainage Color brown, light 04/21/2020 7:54 AM Drainage Consistency thin 04/21/2020 7:54 AM Insertion Site Appearance no warmth;no redness;no tenderness;no skin breakdown;no drainage 04/21/2020 7:54 AM Flush/Irrigation flushed with;water;flushed with ease 04/21/2020 8:00 PM Tube Intake (mL) 0 04/22/2020 12:00 PM General Intake (mL) 0 04/22/2020 8:00 AM General Output (mL) 0 04/22/2020 2:00 PM EVD (External Ventricular Drain) 04/20/201999 (Active) Distance Above Site (cm H2O) 0.1 m (3.94) 04/22/2020 8:00 AM Ventricular Drainage red 04/22/2020 8:00 AM Insertion Site dressing dry and intact 04/22/2020 8:00 AM Insertion Site Drainage dried 04/22/2020 8:00 AM Interventions open;zeroed 04/22/2020 8:00 AM General Output (mL) 26 04/22/2020 2:00 PM ETT Airway (Active) Airway Size Verification 7.5 mm 04/22/2020 11:15 AM Site center of mouth 04/22/2020 11:15 AM Appearance clean 04/22/2020 11:15 AM Tube Securement endotracheal (ET) tube swenson 04/22/2020 11:15 AM Tube Reference Point teeth 04/22/2020 11:15 AM Airway Tube Secured At (cm) 26 04/22/2020 11:15 AM Cuff Pressure (cm H2O/mLH2O) 24 04/22/2020 6:35 AM Tube Securement Date 04/20/20 04/22/2020 4:16 AM Bite Block none 04/22/2020 4:16 AM Manual Resuscitator at bedside Yes 04/22/2020 11:15 AM Arterial Line 04/20/202047 other (see comments) radial artery, left (Active) Dressing dressing dry and intact 04/22/2020 8:00 AM Arterial Catheter Securement catheter securement device utilized 04/22/2020 8:00 AM Lumen Patency/Care flushed without difficulty 04/22/2020 8:00 AM Phlebitis 0-->no symptoms 04/22/2020 2:00 PM Infiltration 0-->no symptoms 04/22/2020 2:00 PM Waveform normal 04/22/2020 8:00 AM Site Signs/Symptoms no redness;no swelling;no warmth;no pain 04/22/2020 8:00 AM Incision 04/22/20 0938 Right wrist non-laparascopic puncture (Active) Labs: No results found for: PHART, PO2ART, [id number] Recent Labs 04/26/20 0150 WBC 8.5 RBC 3.46* HGB 11.6* HCT 33.8* MCV 97.7* MCH 33.5* MCHC 34.3 PLATELET 157 RDWCV 12.6 Recent Labs 04/26/20 0640 04/26/20 0150 NA -- 136 K 3.6 3.7 CL -- 103 CO2 -- 25 BUN -- 13 CREATININE -- 0.43* GLUCOSE -- 105 Imaging: KUB 04/26 Exchange of enteric tube with Dobbhoff type catheter, wire remains in place, tip overlying the expected location of the gastric body. Multiple overlying leads. ?? Air-filled loops of small bowel prominent are prominent, with air-filled loops of surrounding colon. ?? IMPRESSION 1. Enteric tube exchange, Dobbhoff tip, as above. 2. Prominent loops of air-filled bowel, supine only view. Physical Exam: Gen intubated, no sedation Neuro Eyes open to voice PERRL +Corneals +Cough MOTOR: RUE: squeezes, thumbs up to command LUE: withdraws to stimulation RLE: wiggles toes to command LLE: withdraws to stimulation COR RRR PUL Clear ABD soft. Mildly distended EXT cool, pulses present ASSESSMENT & PLAN: 60 year-old man with Right BG bleed and IVH with hydrocephalus (s/p EVD). # Neuro-?? > spontaneous??ICH: R caudate IPH with IVH > ETOH/substance abuse: UDS + cannabinoids and oxycodone - q2h neuro checks, VS - cvEEG-replaced, will discuss D/C with neurosurgical team - Keppra 500mg BID (received 1Gm load) - HOB > 30 deg -??EVD open at??[id number], trend ICP/CPP; mgt per NSY - obtain STAT NCHCT for any change in neuro status - MRI ??brain done 04/23 - Stroke Neurology consult - analgesia: PRN Tylenol, Fentanyl -weaned off of precedex today ?? # CV - - SBP goal < 160 -increase norvasc, wean nicardipine for SBP >160 -add lisinopril ?- labetalol, hydralazine prn ? # Pulm - -??Passed SBT, extubated earlier today, appears to be tolerating - Hflu PNA--c/w ceftriaxone ?? # GI - - resume enteral nutrition post extubation via NGT - IMPREGNATOR eval post-extubation -??maintain??bowel reg - GI ppx: pepcid IVP ?? # FEN/ - - maintain euvolemia - avoid hypotonic fluids - Goal Na 135-145, K > 4, Mg > 1 - ICU potassium repletion protocol - external catheter in place ?? # Heme - > hemochromatosis - goal Hgb > 7, INR < 1.5, Platelets > 100k -??daily CBC, check iron=96 - DVT ppx: SCDs - SQH ?? # Endo - - goal glucose 120-180 --> ISS??PRN # ID - - H Flu in sputum, CXR without infiltrate. Started on broad spectrum and will narrow depending on our nomogram. Follow up culture data from 04/23 ?? # ICU Bundle Feeding: enteral feeds Analgesia: PRN Tylenol Sedation: None Thromboprophylaxis: SQH/SCDs ?? HOB > 30 degrees Ulcer prophylaxis: H2B Glycemic Control: goal glucose 120-180, ISS PRN SBT: yes ?? Bowel Reg: RBO Indwelling Catheters/Lines/Tubes: PIV x2, OGT (04/20), brewster (04/20-), ETT (04/20), left frontal EVD(04/20)--have d/c'd central line and zaira. De-escalate Antibiotics: Pending culture data ?? Code Status - Full Code ?? Dispo - ICU //////////////////////////////////////////////////////////////////////////////// //// Attestation: IS PATIENT CRITICALLY ILL ? Is there a high potential of sudden, clinically significant, or life threatening deterioration? YES Is there a need for direct personal assessment and management to treat/prevent multiple vital organfailure/deterioration? YES If this patient is not critically ill, the reason for continued hospitalization is n/a. PATIENT IS CRITICALLY ILL WITH THESE DIAGNOSES BEING MANAGED BY [facility] TEAM: Intracerebral hemorrhage Intraventricular hemorrhage Altered mental status Alcohol withdrawal Intubated for airway protection I personally performed 30 minutes of aggregate critical care time exclusive of procedures and teaching. This includes time spent during direct patient evaluation and reassessment, interpreting diagnostic tests, directing life and/or organ supporting interventions and documentation on the unit. * Dean Sharp APRN - 04/26/2020 7:25 AM EDT NEUROSURGERY PROGRESS NOTE ID: Ollie Burnett SrTony is a 60 y.o. male with spontaneous R BG IPH with IVH leading to hydrocephalus s/p L EVD placement. INTERVAL Hx: - LEFT frontal EVD open at 10 cm H2O - Neuro stable - Now following commands in LUE MEDICATIONS: Scheduled Meds: ??? [START ON 04/26/2020] amLODIPine 10 mg Oral Daily ??? cefTRIAXone 2 g Intravenous Q24H ??? polyethylene glycol (MIRALAX)oral powder 17 g Oral Daily ??? magnesium hydroxide 10 mL Oral Nightly ??? heparin (Porcine) 5,000 Units Subcutaneous Q8H JOSE ??? thiamine 100 mg Oral Daily ??? folic acid 1 mg Oral Daily ??? multivitamin with minerals 1 tablet Oral Daily ??? senna-docusate 2 tablet Oral BID ??? chlorhexidine 15 mL Oral BID ??? famotidine 20 mg Intravenous 2 times per day ??? levETIRAcetam 500 mg Intravenous 2 times per day Continuous Infusions: ??? sodium chloride 0.9% 75 mL/hr (04/25/20 1651) ??? dexmedetomidine 0.6 mcg/kg/hr (04/25/20 1447) ??? tube feeding diet Stopped (04/25/20 1400) PRN: albuteroL, 6 puff, Q6H PRN Potassium supplement in solution, 20-60 mEq, Q4H PRN labetalol, 10-20 mg, Q15 Min PRN enalaprilat, 1.25 mg, Q6H PRN bisacodyL, 10 mg, Daily PRN acetaminophen, 975 mg, Q6H PRN fentaNYL (PF), 25 mcg, Q30 Min PRN EXAM: Temp: [36.5 ??C (97.7 ??F)-37.7 ??C (99.9 ??F)] Heart Rate: [63-115] Resp: [18-32] BP: (147-176)/(65-95) SpO2: [94 %-100 %] Heart Rate from SpO2: [63 bpm-114 bpm] I/O: Intake/Output Summary (Last 24 hours) at 04/25/20202003 Last data filed at 04/25/2020 1800 Gross per 24 hour Intake 5540.2 ml Output 2926 ml Net 2614.2 ml Drains: L frontal EVD @ 10 cm H2O, output = 94cc x 24h ICPs 6-12 NEURO: Intubated. Off sedation. Eyes do not open to voice or noxious stimuli PERRL MOTOR: RUE: follows simple commands LUE: follows simple commands RLE: follow simple commands LLE: withdrawals to noxious stimuli LABS: Recent Labs 04/25/20 0110 04/24/20 0215 04/23/20 0350 WBC 11.3* 10.1* 9.2 HGB 12.0* 12.3* 11.7* PLATELET 141* 143* 124* Recent Labs 04/25/20 0110 04/24/20 1130 04/24/20 0215 04/23/20 0350 NA 138 -- 138 -- 140 K 3.7 3.7 3.4* < > 3.8 CL 104 -- 102 -- 107 CO2 24 -- 26 -- 26 BUN 14 -- 9* -- 10 CREATININE 0.43* -- 0.45* -- 0.36* < > = values in this interval not displayed. No results for input(s): PT, INR in the last 72 hours. IMAGING: MRI brain wo 04/23 1. Scattered punctate cortical and white matter acute infarcts, likely microembolic, RIGHT greater than LEFT. 2. Redemonstrated large amount of intraventricular hemorrhage dissecting from the RIGHT caudate head and globus pallidus, with persistent hydrocephalus and regional mass effect as described above. CT head 04/22 IMPRESSION No significant interval change. MRI brain 04/21 IMPRESSION Right basal ganglia parenchymal hemorrhage with intraventricular extension and ventricular enlargement. No evidence of underlying parenchymal enhancing mass. Assessment: This is a 60 y.o. male with R BG IPH with IVH leading to hydrocephalus s/p L EVD placement. DSA 04/22 without aneurysm or vascular malformation. With change in neuro exam post DSA and having been started on phenobarbital for ETOH withdrawal, repeat CT head stable. MRI with tiny scattered acute infarcts does not provide explanation for change in exam. Problem List: R BG IPH with IVH Hydrocephalus Plan: -Q1 neuro checks -SBP<160 -EVD open at 10 cm H2O, monitor output -ICP monitoring hourly. Call Neurosurgery for ICP>20mmHg for >15mins without stimulation -DVT ppx: SCDs; SQH -Stroke neurology following -Keppra 500 mg BID for seizure ppx -follow-up vEEG -Follow-up on CSF cx: NGTD -Rest of care per [facility] For questions please call [email or web address] pager [phone] Andres Goddard MD 04/25/2020 8:04 PM Clinical Documentation Improvement: Active Hospital Problems Diagnosis ??? 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 Intraventricular hemorrhage Resolved Hospital Problems No resolved problems to display. * Nella Forrest RT - 04/25/2020 11:15 PM EDT AMV Protocol: Yes SBT Protocol: Yes SBT: Passed Vent Settings: Ventilator Mode: PS/CPAP PEEP Set: 5 FiO2: 25 % PSV: 8 Ventilator Measurements: Resp: 25 Vt Spontaneous: 509 Ve: 13.3 SpO2: 99 % EtCO2: 29 mmHg Airway: 7.5 @ 26 cm at the Teeth. Skin Integrity: WDL MDI Inhaled Medications: Albuterol Breath Sounds: rhonchi Secretions: mod thick yates Assessment / Events / Plan of the Day: Received pt on PSV 8/5 25%. Passed SBT w/o incident. Pt following commands and expected to extubate in morning. RT Aletha * Tai Pineda RCP - 04/25/2020 4:18 PM EDT AMV Protocol: Yes SBT Protocol: Yes Vent Settings: Ventilator Mode: PS/CPAP PEEP Set: 5 FiO2: 40 % PSV: 8 Ventilator Measurements: Resp: (!) 32 Vt Spontaneous: 509 Ve: 11.4 SpO2: 100 % EtCO2: 27 mmHg Airway: 7.5 @ 26 cm at the Teeth. Skin Integrity: WDL MDI Inhaled Medications: Albuterol Breath Sounds: Diminshed/rhonchi/insp wheeze Secretions: mod amount thick yates Assessment / Events / Plan of the Day: Pt remains on PSV today, alb 6p ordered PRN. Plan top SBT and assess for extubation in morning. Tai Pineda RCP * Rajiv Xavier MD - 04/25/2020 2:52 PM EDT NEUROCRITICAL CARE PROGRESS NOTE Date of Admission: 04/20/2020 5:24 PM LOS: 5 ICU LOS: 4d 16h 24 Hour Events: -waxing and waning neuro exam -Remains intubated for airway protection -sputum grew HFLU -left frontal EVD @10 --required several flushes overnight -MRI done -cvEEG replaced Active Medications: ??? dexmedetomidine 0.6 mcg/kg/hr (04/25/20 1447) ??? tube feeding diet Stopped (04/25/20 1400) ??? fentaNYL Stopped (04/24/20 1200) ??? sodium chloride 0.9% 75 mL/hr (04/25/20 0638) ??? [START ON 04/26/2020] amLODIPine 10 mg Oral Daily ??? cefTRIAXone 2 g Intravenous Q24H ??? polyethylene glycol (MIRALAX)oral powder 17 g Oral Daily ??? heparin (Porcine) 5,000 Units Subcutaneous Q8H JOSE ??? thiamine 100 mg Oral Daily ??? folic acid 1 mg Oral Daily ??? multivitamin with minerals 1 tablet Oral Daily ??? shift total and Settings verification 1 each Intravenous 2 Times Daily - Shift Total ??? senna-docusate 2 tablet Oral BID ??? chlorhexidine 15 mL Oral BID ??? famotidine 20 mg Intravenous 2 times per day ??? levETIRAcetam 500 mg Intravenous 2 times per day albuteroL, Potassium supplement in solution, labetalol, enalaprilat, magnesium hydroxide, bisacodyL, [DISCONTINUED] acetaminophen OR acetaminophen OR [DISCONTINUED] acetaminophen, fentaNYL (PF) Vitals: Vital Sign Ranges: Last value Range last 24 hrs Temperature Temp: 36.6 ??C (97.9 ??F) Temp: [36.5 ??C (97.7 ??F)-37.7 ??C (99.9 ??F)] Heart Rate Heart Rate: 84 Heart Rate: [63-115] Blood Pressure BP: 164/73 BP: (164)/(73) Respiratory Rate Resp: 26 Resp: [18-31] SpO2 SpO2: 100 % SpO2: [94 %-100 %] Art BP BP (Arterial Line): 135/52 BP (Arterial Line): (90-181)/(36-71) Intake/Output: I/O 06/01 0701 - 06/02 0700 06/02 0701 - 06/03 0700 06/03 0701 - 06/04 0700 06/04 0701 - 06/05 0700 P.O. 0 0 0 0 I.V. (mL/kg/hr) 2903 (1.8) 2339.1 (1.5) 2958.8 (1.9) 1044.2 (2) Blood 0 0 Other 0 0 0 NG/GT 638 006 4728 866 IV Piggyback 100 941 600 Total Intake(mL/kg) 3610 (55) 4223.1 (64.4) 5087.8 (77.6) 1910.2 (29.1) Urine (mL/kg/hr) 1000 (0.6) 2215 (1.4) 3500 (2.2) 950 (1.8) Emesis/NG output 0 0 0 Other 280 193 100 20 Stool 0 0 0 Blood 0 Total Output(mL/kg) 1280 (19.5) 2408 (36.7) 3600 (54.9) 970 (14.8) Net +2330 +1815.1 +1487.8 +940.2 Urine Occurrence 6 x 3 x Stool Occurrence 0 x 0 x 1 x Emesis Occurrence 0 x 0 x 0 x Lines/Drains/Airways: Percutaneous Central Line - Triple Lumen 04/20/202049 subclavian vein, left (Active) Indication/Daily Review of Necessity Medications known to cause phlebitis (vasopressors, concentrated electrolytes, TPN, chemotherapy) 04/22/2020 8:00 AM Site Preparation/Maintenance dressing: dry and intact 04/22/2020 8:00 AM Needleless Connector change due 04/25/20 04/22/2020 4:00 AM Securement sutures, secured with 04/22/2020 8:00 AM Distal Patency/Maintenance needleless connector changed 04/22/2020 4:00 AM Medial Patency/Maintenance needleless connector changed 04/22/2020 4:00 AM Proximal Patency/Maintenance needleless connector changed 04/22/2020 4:00 AM Phlebitis 0-->no symptoms 04/22/2020 2:00 PM Infiltration 0-->no symptoms 04/22/2020 2:00 PM Site Signs/Symptoms no redness;no warmth;no swelling;no pain 04/22/2020 8:00 AM Peripheral IV Line - Single Lumen 04/20/20 1817 median cubital vein (antecubital fossa), left 18 gauge (Active) Indication/Daily Review of Necessity medication therapy continuous 04/22/2020 8:00 AM Site Preparation/Maintenance dressing: dry and intact 04/22/2020 8:00 AM Securement catheter stabilization device, secured with 04/22/2020 8:00 AM Patency/Maintenance flushed without difficulty;blood return, able to obtain;alcohol impregnated capapplied 04/22/2020 8:00 AM Phlebitis 0-->no symptoms 04/22/2020 12:00 PM Infiltration 0-->no symptoms 04/22/2020 12:00 PM Site Signs/Symptoms no redness;no warmth;no swelling;no pain;no palpable cord;no streak formation;no drainage 04/21/2020 8:00 PM Peripheral IV Line - Single Lumen 04/20/20 1831 median cubital vein (antecubital fossa), right 18 gauge (Active) Indication/Daily Review of Necessity medication therapy intermittent 04/22/2020 8:00 AM Site Preparation/Maintenance dressing: dry and intact 04/22/2020 8:00 AM Securement catheter stabilization device, secured with 04/22/2020 8:00 AM Patency/Maintenance flushed without difficulty;blood return, able to obtain;alcohol impregnated capapplied 04/22/2020 8:00 AM Phlebitis 0-->no symptoms 04/22/2020 2:00 PM Infiltration 0-->no symptoms 04/22/2020 2:00 PM Site Signs/Symptoms no swelling;no warmth;no redness;no pain;no palpable cord;no streak formation;no drainage 04/21/2020 8:00 PM External Catheter 04/21/20 1823 (Active) Securement secured to upper leg with adhesive device 04/21/2020 8:00 PM Skin no redness;no breakdown;penis/scrotum cleansed with soap and water;skin barrier applied 04/21/2020 8:00 PM Tolerance no signs/symptoms of discomfort 04/21/2020 8:00 PM Urine Output (mL) 120 04/22/2020 6:00 AM Naso/Oral Tube 04/20/20 1800 center mouth (Active) Placement Check Methods distal length tube measured 04/21/2020 8:00 PM Catheter Depth (cm) 60 cm 04/22/2020 8:00 AM Tolerance no adverse signs/symptoms 04/22/2020 8:00 AM Securement taped to ETT 04/22/2020 8:00 AM Clamp Status/Tolerance unclamped 04/22/2020 8:00 AM Suction Setting/Drainage Method low suction;continuous setting 04/22/2020 8:00 AM Drainage Color brown, light 04/21/2020 7:54 AM Drainage Consistency thin 04/21/2020 7:54 AM Insertion Site Appearance no warmth;no redness;no tenderness;no skin breakdown;no drainage 04/21/2020 7:54 AM Flush/Irrigation flushed with;water;flushed with ease 04/21/2020 8:00 PM Tube Intake (mL) 0 04/22/2020 12:00 PM General Intake (mL) 0 04/22/2020 8:00 AM General Output (mL) 0 04/22/2020 2:00 PM EVD (External Ventricular Drain) 04/20/201999 (Active) Distance Above Site (cm H2O) 0.1 m (3.94) 04/22/2020 8:00 AM Ventricular Drainage red 04/22/2020 8:00 AM Insertion Site dressing dry and intact 04/22/2020 8:00 AM Insertion Site Drainage dried 04/22/2020 8:00 AM Interventions open;zeroed 04/22/2020 8:00 AM General Output (mL) 26 04/22/2020 2:00 PM ETT Airway (Active) Airway Size Verification 7.5 mm 04/22/2020 11:15 AM Site center of mouth 04/22/2020 11:15 AM Appearance clean 04/22/2020 11:15 AM Tube Securement endotracheal (ET) tube swenson 04/22/2020 11:15 AM Tube Reference Point teeth 04/22/2020 11:15 AM Airway Tube Secured At (cm) 26 04/22/2020 11:15 AM Cuff Pressure (cm H2O/mLH2O) 24 04/22/2020 6:35 AM Tube Securement Date 04/20/20 04/22/2020 4:16 AM Bite Block none 04/22/2020 4:16 AM Manual Resuscitator at bedside Yes 04/22/2020 11:15 AM Arterial Line 04/20/202047 other (see comments) radial artery, left (Active) Dressing dressing dry and intact 04/22/2020 8:00 AM Arterial Catheter Securement catheter securement device utilized 04/22/2020 8:00 AM Lumen Patency/Care flushed without difficulty 04/22/2020 8:00 AM Phlebitis 0-->no symptoms 04/22/2020 2:00 PM Infiltration 0-->no symptoms 04/22/2020 2:00 PM Waveform normal 04/22/2020 8:00 AM Site Signs/Symptoms no redness;no swelling;no warmth;no pain 04/22/2020 8:00 AM Incision 04/22/20 0938 Right wrist non-laparascopic puncture (Active) Labs: Lab Results Component Value Date pH Art 7.48 (H) 04/25/2020 pO2 Art 93 04/25/2020 pCO2 Art 32 (L) 04/25/2020 Recent Labs 04/25/20 0110 WBC 11.3* RBC 3.54* HGB 12.0* HCT 34.8* MCV 98.3* MCH 33.9* MCHC 34.5 PLATELET 141* RDWCV 12.7 Recent Labs 04/25/20 0110 NA 138 K 3.7 CL 104 CO2 24 BUN 14 CREATININE 0.43* GLUCOSE 200* Imaging: KUB 6/4 Mildly dilated air-filled loops of small bowel with relative paucity of gas seen in the colon. Findings may represent a developing diffuse small bowel ileus, however, a distal small bowel obstruction is not excluded. Physical Exam: Gen intubated, no sedation Neuro Eyes open to voice PERRL +Corneals +Cough MOTOR: RUE: squeezes, thumbs up to command LUE: flicker to no movement to stimulation RLE: wiggles toes to command LLE: withdraws to stimulation COR RRR PUL Clear ABD soft. Mildly distended EXT cool, pulses present ASSESSMENT & PLAN: 60 year-old man with Right BG bleed and IVH with hydrocephalus (s/p EVD). # Neuro-?? > spontaneous??ICH: R caudate IPH with IVH > ETOH/substance abuse: UDS + cannabinoids and oxycodone - q2h neuro checks, VS - cvEEG-replaced, will discuss D/C with neurosurgical team - Keppra 500mg BID (received 1Gm load) - HOB > 30 deg -??EVD open at??[id number], trend ICP/CPP; mgt per NSY - obtain STAT NCHCT for any change in neuro status - MRI ??brain done 04/23 - Stroke Neurology consult - analgesia: PRN Tylenol, Fentanyl ?? # CV - - SBP goal < 160 -increase norvasc, wean nicardipine for SBP >160 ?- labetalol, hydralazine prn ? # Pulm - -??Intubated for airway protection - fluctuating mental status and increase in secretions preclude extubation. Started on V/Z for GNR in sputum, then narrowed to ceftriaxone today ?? # GI - - resume enteral nutrition - IMPREGNATOR eval post-extubation -??maintain??bowel reg - GI ppx: pepcid IVP while intubated ?? # FEN/ - - maintain euvolemia - avoid hypotonic fluids - Goal Na 135-145, K > 4, Mg > 1 - ICU potassium repletion protocol - external catheter in place ?? # Heme - > hemochromatosis - goal Hgb > 7, INR < 1.5, Platelets > 100k -??daily CBC, check iron=96 - DVT ppx: SCDs - SQH ?? # Endo - - goal glucose 120-180 --> ISS??PRN # ID - - H Flu in sputum, CXR without infiltrate. Started on broad spectrum and will narrow depending on our nomogram. Follow up culture data from 04/23 ?? # ICU Bundle Feeding: NPO for extubation) Analgesia: PRN Tylenol Sedation: None Thromboprophylaxis: SQH/SCDs ?? HOB > 30 degrees Ulcer prophylaxis: H2B Glycemic Control: goal glucose 120-180, ISS PRN SBT: yes ?? Bowel Reg: RBO Indwelling Catheters/Lines/Tubes: PIV x2, OGT (04/20), brewster (04/20-), ETT (04/20), left frontal EVD(04/20)--have d/c'd central line and zaira. De-escalate Antibiotics: Pending culture data ?? Code Status - Full Code ?? Dispo - ICU //////////////////////////////////////////////////////////////////////////////// //// Attestation: IS PATIENT CRITICALLY ILL ? Is there a high potential of sudden, clinically significant, or life threatening deterioration? YES Is there a need for direct personal assessment and management to treat/prevent multiple vital organfailure/deterioration? YES If this patient is not critically ill, the reason for continued hospitalization is n/a. PATIENT IS CRITICALLY ILL WITH THESE DIAGNOSES BEING MANAGED BY [facility] TEAM: Intracerebral hemorrhage Intraventricular hemorrhage Altered mental status Alcohol abuse Intubated for airway protection I personally performed 31 minutes of aggregate critical care time exclusive of procedures and teaching. This includes time spent during direct patient evaluation and reassessment, interpreting diagnostic tests, directing life and/or organ supporting interventions and documentation on the unit. * Rachele Cole MSW - 04/25/2020 11:54 AM EDT Patient remains in NCCU. He continues on the ventilator and per team, no extubation today. VISUAL TRAINING AIDE contacted patient's daughter, Susanna, to offer support and assess her understanding of patient's condition. Unfortunately, Susanna was at the store, so conversation was very short. She reports she has been getting good updates when she calls in and denies any specific questions or concerns at this time. VISUAL TRAINING AIDE reminded her of the availability of social work and case management throughout patient's stay and encouraged her to reach out if any concerns/needs arise VISUAL TRAINING AIDE to follow up on Wednesday if patient remains in ICU Office of Case Management- Social Work Note KYE Ch, [facility] Pager [phone] * Shelley Santana PA - 04/25/2020 7:51 AM EDT NEUROSURGERY PROGRESS NOTE ID: Ollie Burnett Sr. is a 60 y.o. male with spontaneous R BG IPH with IVH leading to hydrocephalus s/p L EVD placement. INTERVAL Hx: - vEEG started OVN - EVD flushed x3 OVN - LEFT frontal EVD open at 10 cm H2O MEDICATIONS: Scheduled Meds: ??? potassium, sodium phosphates 3 g Per NG tube Q4H JOSE ??? piperacillin-tazobactam 3.375 g Intravenous Q8H ??? amLODIPine 5 mg Oral Daily ??? heparin (Porcine) 5,000 Units Subcutaneous Q8H JOSE ??? PHENobarbitaL 0.36 mg/kg/dose (Bryant) Oral BID Followed by ??? PHENobarbitaL 0.18 mg/kg/dose (Bryant) Oral BID ??? thiamine 100 mg Oral Daily ??? folic acid 1 mg Oral Daily ??? multivitamin with minerals 1 tablet Oral Daily ??? shift total and Settings verification 1 each Intravenous 2 Times Daily - Shift Total ??? senna-docusate 2 tablet Oral BID ??? chlorhexidine 15 mL Oral BID ??? famotidine 20 mg Intravenous 2 times per day ??? levETIRAcetam 500 mg Intravenous 2 times per day Continuous Infusions: ??? dexmedetomidine 0.6 mcg/kg/hr (04/25/20 0450) ??? tube feeding diet 85 mL/hr at 04/24/20 2000 ??? NORepinephrine Stopped (04/25/20 0100) ??? fentaNYL Stopped (04/24/20 1200) ??? niCARdipine Stopped (04/25/20 0503) ??? sodium chloride 0.9% 75 mL/hr (04/25/20 0638) PRN: Potassium supplement in solution, 20-60 mEq, Q4H PRN PHENobarbitaL, 3 mg/kg/dose (Bryant), Q30 Min PRN labetalol, 10-20 mg, Q15 Min PRN enalaprilat, 1.25 mg, Q6H PRN magnesium hydroxide, 10 mL, Nightly PRN bisacodyL, 10 mg, Daily PRN acetaminophen, 975 mg, Q6H PRN Or acetaminophen, 975 mg, Q6H PRN Or acetaminophen, 975 mg, Q6H PRN fentaNYL (PF), 25 mcg, Q30 Min PRN polyethylene glycol (MIRALAX)oral powder, 17 g, Daily PRN EXAM: Temp: [36.5 ??C (97.7 ??F)-38 ??C (100.4 ??F)] Heart Rate: [71-120] Resp: [18-31] BP: -- SpO2: [94 %-99 %] Heart Rate from SpO2: [71 bpm-120 bpm] I/O: Intake/Output Summary (Last 24 hours) at 04/25/2020 0751 Last data filed at 04/25/2020 0600 Gross per 24 hour Intake 5087.8 ml Output 3600 ml Net 1487.8 ml Drains: L frontal EVD @ 10 cm H2O, output = 100 cc x 24h ICPs 5-15 NEURO: Intubated. Off sedation Eyes do not open to voice or noxious stimuli PERRL MOTOR: RUE: follows simple commands LUE: withdraws to noxious stimuli RLE: follow simple commands LLE: withdrawals to noxious stimuli LABS: Recent Labs 04/25/20 0110 04/24/20 0215 04/23/20 0350 WBC 11.3* 10.1* 9.2 HGB 12.0* 12.3* 11.7* PLATELET 141* 143* 124* Recent Labs 04/25/20 0110 04/24/20 1130 04/24/20 0215 04/23/20 0350 NA 138 -- 138 -- 140 K 3.7 3.7 3.4* < > 3.8 CL 104 -- 102 -- 107 CO2 24 -- 26 -- 26 BUN 14 -- 9* -- 10 CREATININE 0.43* -- 0.45* -- 0.36* < > = values in this interval not displayed. No results for input(s): PT, INR in the last 72 hours. IMAGING: MRI brain wo 04/23 1. Scattered punctate cortical and white matter acute infarcts, likely microembolic, RIGHT greater than LEFT. 2. Redemonstrated large amount of intraventricular hemorrhage dissecting from the RIGHT caudate head and globus pallidus, with persistent hydrocephalus and regional mass effect as described above. CT head 04/22 IMPRESSION No significant interval change. MRI brain 04/21 IMPRESSION Right basal ganglia parenchymal hemorrhage with intraventricular extension and ventricular enlargement. No evidence of underlying parenchymal enhancing mass. Assessment: This is a 60 y.o. male with R BG IPH with IVH leading to hydrocephalus s/p L EVD placement. DSA 04/22 without aneurysm or vascular malformation. With change in neuro exam post DSA and having been started on phenobarbital for ETOH withdrawal, repeat CT head stable. MRI with tiny scattered acute infarcts does not provide explanation for change in exam. Problem List: R BG IPH with IVH Hydrocephalus Plan: -Q1 neuro checks -SBP<160 -EVD open at 10 cm H2O, monitor output -ICP monitoring hourly. Call Neurosurgery for ICP>20mmHg for >15mins without stimulation -DVT ppx: SCDs; SQH -Stroke neurology following -Keppra 500 mg BID for seizure ppx -follow-up vEEG -Follow-up on CSF cx: NGTD -Rest of care per NCCU For questions please call NSGY pager [phone] EMBER Herrera 04/25/2020 7:51 AM Clinical Documentation Improvement: Active Hospital Problems Diagnosis ??? 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 Intraventricular hemorrhage Resolved Hospital Problems No resolved problems to display. * Nella Forrest RT - 04/25/2020 3:47 AM EDT AMV Protocol: Yes SBT Protocol: Yes SBT: no performed due to sedation Vent Settings: Ventilator Mode: PS/CPAP PEEP Set: 5 FiO2: (S) 25 % PSV: (S) 10 Ventilator Measurements: Resp: 21 Vt Spontaneous: 509 Ve: 13.4 SpO2: 97 % EtCO2: 30 mmHg Airway: 7.5 @ 26 cm at the Teeth. Skin Integrity: WDL Breath Sounds: diminished bilaterally Secretions: moderate thick yellow Assessment / Events / Plan of the Day: Received pt on PSV 10/5 30%. Decreased FiO2 to 25%. @ 21:58 increased PS to 12 due to RR>30. Sedation increased and able to wean PS to 8 cmH20. RT Aletha * Rajiv Xavier MD - 04/24/2020 4:49 PM EDT NEUROCRITICAL CARE PROGRESS NOTE Date of Admission: 04/20/2020 5:24 PM LOS: 4 ICU LOS: 3d 18h 24 Hour Events: -waxing and waning neuro exam -Remains intubated for airway protection, though did pass an SBT -Increased sputum -left frontal EVD @10 (ICP3-10; 180/24 hr) -MRI done Active Medications: ??? dexmedetomidine 0.5 mcg/kg/hr (04/24/20 1614) ??? tube feeding diet 147 mL/hr at 04/24/20 1400 ??? NORepinephrine 0 mcg/min (04/23/20 0800) ??? fentaNYL Stopped (04/24/20 1200) ??? niCARdipine 2.5 mg/hr (04/24/20 0645) ??? sodium chloride 0.9% 75 mL/hr (04/23/20 0600) ??? piperacillin-tazobactam 3.375 g Intravenous Q8H ??? vancomycin 1 g Intravenous Q8H ??? [START ON 04/25/2020] Vancomycin Level - MAR Order Reminder NOT APPLICABLE Once ??? amLODIPine 5 mg Oral Daily ??? heparin (Porcine) 5,000 Units Subcutaneous Q8H JOSE ??? PHENobarbitaL 0.36 mg/kg/dose (Bryant) Oral BID Followed by ??? [START ON 04/25/2020] PHENobarbitaL 0.18 mg/kg/dose (Bryant) Oral BID ??? thiamine 100 mg Oral Daily ??? folic acid 1 mg Oral Daily ??? multivitamin with minerals 1 tablet Oral Daily ??? shift total and Settings verification 1 each Intravenous 2 Times Daily - Shift Total ??? senna-docusate 2 tablet Oral BID ??? chlorhexidine 15 mL Oral BID ??? famotidine 20 mg Intravenous 2 times per day ??? levETIRAcetam 500 mg Intravenous 2 times per day Potassium supplement in solution, PHENobarbitaL, labetalol, enalaprilat, magnesium hydroxide, bisacodyL, acetaminophen OR acetaminophen OR acetaminophen, fentaNYL (PF), polyethylene glycol (MIRALAX)oral powder Vitals: Vital Sign Ranges: Last value Range last 24 hrs Temperature Temp: 37.5 ??C (99.5 ??F) Temp: [36.5 ??C (97.7 ??F)-38.3 ??C (100.9 ??F)] Heart Rate Heart Rate: 92 Heart Rate: [76-120] Blood Pressure BP: 153/50 BP: (153)/(50) Respiratory Rate Resp: 23 Resp: [17-44] SpO2 SpO2: 99 % SpO2: [94 %-100 %] Art BP BP (Arterial Line): 130/51 BP (Arterial Line): (112-179)/(37-76) Intake/Output: I/O 04/21 07 - 04/22 0700 04/22 07 - 04/23 0700 04/23 07 - 04/24 0700 04/24 07 - 04/25 0700 P.O. 0 0 0 0 I.V. (mL/kg/hr) 3646.8 (2.3) 2903 (1.8) 2339.1 (1.5) 886.8 (1.4) Blood 0 0 0 Other 80 0 0 0 NG/GT 311 607 943 150 IV Piggyback 11.8 100 941 50 Total Intake(mL/kg) 4049.6 (61.5) 3610 (55) 4223.1 (64.4) 1086.8 (16.6) Urine (mL/kg/hr) 1045 (0.7) 1000 (0.6) 2215 (1.4) 1475 (2.3) Emesis/NG output 0 0 0 0 Other 253 280 193 49 Stool 0 0 0 Blood 0 Total Output(mL/kg) 1298 (19.7) 1280 (19.5) 2408 (36.7) 1524 (23.2) Net +2751.6 +2330 +1815.1 -437.2 Urine Occurrence 6 x 6 x 3 x Stool Occurrence 0 x 0 x 0 x Emesis Occurrence 0 x 0 x 0 x 0 x Lines/Drains/Airways: Percutaneous Central Line - Triple Lumen 04/20/20 205 subclavian vein, left (Active) Indication/Daily Review of Necessity Medications known to cause phlebitis (vasopressors, concentrated electrolytes, TPN, chemotherapy) 04/22/2020 8:00 AM Site Preparation/Maintenance dressing: dry and intact 04/22/2020 8:00 AM Needleless Connector change due 04/25/20 04/22/2020 4:00 AM Securement sutures, secured with 04/22/2020 8:00 AM Distal Patency/Maintenance needleless connector changed 04/22/2020 4:00 AM Medial Patency/Maintenance needleless connector changed 04/22/2020 4:00 AM Proximal Patency/Maintenance needleless connector changed 04/22/2020 4:00 AM Phlebitis 0-->no symptoms 04/22/2020 2:00 PM Infiltration 0-->no symptoms 04/22/2020 2:00 PM Site Signs/Symptoms no redness;no warmth;no swelling;no pain 04/22/2020 8:00 AM Peripheral IV Line - Single Lumen 04/20/20 1817 median cubital vein (antecubital fossa), left 18 gauge (Active) Indication/Daily Review of Necessity medication therapy continuous 04/22/2020 8:00 AM Site Preparation/Maintenance dressing: dry and intact 04/22/2020 8:00 AM Securement catheter stabilization device, secured with 04/22/2020 8:00 AM Patency/Maintenance flushed without difficulty;blood return, able to obtain;alcohol impregnated capapplied 04/22/2020 8:00 AM Phlebitis 0-->no symptoms 04/22/2020 12:00 PM Infiltration 0-->no symptoms 04/22/2020 12:00 PM Site Signs/Symptoms no redness;no warmth;no swelling;no pain;no palpable cord;no streak formation;no drainage 04/21/2020 8:00 PM Peripheral IV Line - Single Lumen 04/20/20 1831 median cubital vein (antecubital fossa), right 18 gauge (Active) Indication/Daily Review of Necessity medication therapy intermittent 04/22/2020 8:00 AM Site Preparation/Maintenance dressing: dry and intact 04/22/2020 8:00 AM Securement catheter stabilization device, secured with 04/22/2020 8:00 AM Patency/Maintenance flushed without difficulty;blood return, able to obtain;alcohol impregnated capapplied 04/22/2020 8:00 AM Phlebitis 0-->no symptoms 04/22/2020 2:00 PM Infiltration 0-->no symptoms 04/22/2020 2:00 PM Site Signs/Symptoms no swelling;no warmth;no redness;no pain;no palpable cord;no streak formation;no drainage 04/21/2020 8:00 PM External Catheter 04/21/20 1823 (Active) Securement secured to upper leg with adhesive device 04/21/2020 8:00 PM Skin no redness;no breakdown;penis/scrotum cleansed with soap and water;skin barrier applied 04/21/2020 8:00 PM Tolerance no signs/symptoms of discomfort 04/21/2020 8:00 PM Urine Output (mL) 120 04/22/2020 6:00 AM Naso/Oral Tube 04/20/20 1800 center mouth (Active) Placement Check Methods distal length tube measured 04/21/2020 8:00 PM Catheter Depth (cm) 60 cm 04/22/2020 8:00 AM Tolerance no adverse signs/symptoms 04/22/2020 8:00 AM Securement taped to ETT 04/22/2020 8:00 AM Clamp Status/Tolerance unclamped 04/22/2020 8:00 AM Suction Setting/Drainage Method low suction;continuous setting 04/22/2020 8:00 AM Drainage Color brown, light 04/21/2020 7:54 AM Drainage Consistency thin 04/21/2020 7:54 AM Insertion Site Appearance no warmth;no redness;no tenderness;no skin breakdown;no drainage 04/21/2020 7:54 AM Flush/Irrigation flushed with;water;flushed with ease 04/21/2020 8:00 PM Tube Intake (mL) 0 04/22/2020 12:00 PM General Intake (mL) 0 04/22/2020 8:00 AM General Output (mL) 0 04/22/2020 2:00 PM EVD (External Ventricular Drain) 04/20/201999 (Active) Distance Above Site (cm H2O) 0.1 m (3.94) 04/22/2020 8:00 AM Ventricular Drainage red 04/22/2020 8:00 AM Insertion Site dressing dry and intact 04/22/2020 8:00 AM Insertion Site Drainage dried 04/22/2020 8:00 AM Interventions open;zeroed 04/22/2020 8:00 AM General Output (mL) 26 04/22/2020 2:00 PM ETT Airway (Active) Airway Size Verification 7.5 mm 04/22/2020 11:15 AM Site center of mouth 04/22/2020 11:15 AM Appearance clean 04/22/2020 11:15 AM Tube Securement endotracheal (ET) tube swenson 04/22/2020 11:15 AM Tube Reference Point teeth 04/22/2020 11:15 AM Airway Tube Secured At (cm) 26 04/22/2020 11:15 AM Cuff Pressure (cm H2O/mLH2O) 24 04/22/2020 6:35 AM Tube Securement Date 04/20/20 04/22/2020 4:16 AM Bite Block none 04/22/2020 4:16 AM Manual Resuscitator at bedside Yes 04/22/2020 11:15 AM Arterial Line 04/20/202047 other (see comments) radial artery, left (Active) Dressing dressing dry and intact 04/22/2020 8:00 AM Arterial Catheter Securement catheter securement device utilized 04/22/2020 8:00 AM Lumen Patency/Care flushed without difficulty 04/22/2020 8:00 AM Phlebitis 0-->no symptoms 04/22/2020 2:00 PM Infiltration 0-->no symptoms 04/22/2020 2:00 PM Waveform normal 04/22/2020 8:00 AM Site Signs/Symptoms no redness;no swelling;no warmth;no pain 04/22/2020 8:00 AM Incision 04/22/20 0938 Right wrist non-laparascopic puncture (Active) Labs: No results found for: PHART, PO2ART, VFA4VYC Recent Labs 04/24/20 0215 WBC 10.1* RBC 3.69* HGB 12.3* HCT 36.4* MCV 98.6* MCH 33.3* MCHC 33.8 PLATELET 143* RDWCV 12.6 Recent Labs 04/24/20 1130 04/24/20 0215 NA -- 138 K 3.7 3.4* CL -- 102 CO2 -- 26 BUN -- 9* CREATININE -- 0.45* GLUCOSE -- 163 Imaging: CT 04/22 The large right basal ganglia hemorrhage that decompresses into the ventricular system is not significantly changed in size. Blood continues to cast the lateral third and fourth ventricles with moderate dilatation of the lateral and third ventricles. Left frontal approach ventricular catheter is in place. Physical Exam: Gen intubated, no sedation Neuro Eyes open to voice PERRL +Corneals +Cough MOTOR: RUE: squeezes, thumbs up to command LUE: flicker to no movement to stimulation RLE: wiggles toes to command LLE: withdraws to stimulation COR RRR PUL Clear ABD soft EXT cool, pulses present ASSESSMENT & PLAN: 60 year-old man with Right BG bleed and IVH with HC (s/p EVD). Neuro exam worsened, not moving leftarm, only withdraws left leg. CT obtained for neuroworsening showed no change # Neuro-?? > spontaneous??ICH: R caudate IPH with IVH > ETOH/substance abuse: UDS + cannabinoids and oxycodone - q1h neuro checks, VS - cvEEG--d/c'd-- can follow clinical exam - Keppra 500mg BID (received 1Gm load) - HOB > 30 deg -??EVD open at??[id number], trend ICP/CPP; mgt per NSY - obtain STAT NCHCT for any change in neuro status - MRI ??brain done 04/24 - Stroke Neurology consult - analgesia: PRN Tylenol, Fentanyl ?? # CV - - SBP goal < 160 -add norvasc, wean nicardipine for SBP >160 ?- labetalol, hydralazine prn ? # Pulm - -??Intubated for airway protection - passed SBT today; however, fluctuating mental status and increase in secretions preclude extubation. Started on V/Z for GNR in sputum. ?? # GI - - resume enteral nutrition - IMPREGNATOR eval post-extubation -??maintain??bowel reg - GI ppx: pepcid IVP while intubated ?? # FEN/ - - maintain euvolemia - avoid hypotonic fluids - Goal Na 135-145, K > 4, Mg > 1 - ICU potassium repletion protocol - external catheter in place ?? # Heme - > hemochromatosis - goal Hgb > 7, INR < 1.5, Platelets > 100k -??daily CBC, check iron=96 - DVT ppx: SCDs - SQH ?? # Endo - - goal glucose 120-180 --> ISS??PRN # ID - -low grade fever, GNR (H Flu)in sputum, CXR without infiltrate. Started on broad spectrum and will narrow depending on our nomogram. Follow up culture data from 04/23 ?? # ICU Bundle Feeding: NPO for extubation) Analgesia: PRN Tylenol Sedation: None Thromboprophylaxis: SQH/SCDs ?? HOB > 30 degrees Ulcer prophylaxis: H2B Glycemic Control: goal glucose 120-180, ISS PRN SBT: yes ?? Bowel Reg: RBO Indwelling Catheters/Lines/Tubes: PIV x2, OGT (04/20), brewster (04/20-), ETT (04/20), left frontal EVD(04/20)--have d/c'd central line and zaira. De-escalate Antibiotics: Pending culture data ?? Code Status - Full Code ?? Dispo - ICU //////////////////////////////////////////////////////////////////////////////// //// Attestation: IS PATIENT CRITICALLY ILL ? Is there a high potential of sudden, clinically significant, or life threatening deterioration? YES Is there a need for direct personal assessment and management to treat/prevent multiple vital organfailure/deterioration? YES If this patient is not critically ill, the reason for continued hospitalization is n/a. PATIENT IS CRITICALLY ILL WITH THESE DIAGNOSES BEING MANAGED BY [facility] TEAM: Intracerebral hemorrhage Intraventricular hemorrhage Altered mental status Alcohol abuse Intubated for airway protection I personally performed 33 minutes of aggregate critical care time exclusive of procedures and teaching. This includes time spent during direct patient evaluation and reassessment, interpreting diagnostic tests, directing life and/or organ supporting interventions and documentation on the unit. * Tyson Krishnan RCP - 04/24/2020 2:20 PM EDT AMV Protocol: Yes SBT Protocol: Yes Vent Settings: Ventilator Mode: PS/CPAP PEEP Set: 5 FiO2: 30 % PSV: 10 Ventilator Measurements: Resp: 24 Vt Spontaneous: 504 Ve: 13.4 SpO2: 99 % EtCO2: 33 mmHg Airway: 7.5 @ 26 cm at the Teeth. Skin Integrity: WDL Breath Sounds: diminished bilat with upper airway rhonchi clearing with suctioning Secretions: moderate pale yellow Assessment / Events / Plan of the Day: Continued on PSV, no extubation secondary to variable MS. Nomajor changes to vent support, continue current vent protocol TYSON KRISHNAN RCP * Isi Abdi RD - 04/24/2020 10:52 AM EDT Nutrition Progress Note Ollie Burnett Sr. is a 60 y.o. male admitted with right BG bleed and IVH with HC (s/p EVD), relevant medical history includes ETOH abuse and hemochromatosis. Reason for intervention: ICU Tube-feeding Nutrition Recommendations: Continue enteral feeds at goal rate, limiting holds as able. Continue to monitor K, Mg and Phos daily and replenish as needed - pt at higher risk for refeeding syndrome. Biweekly weights appreciated. I was not able to discuss with patient's provider. Team paged with nutrition recommendations. Pager# [phone]. All Active TF Orders: Promote with a goal rate of 85 ml per hour. This rate is calculated to compensate for unplanned time off feedings due to potential procedures, etc. At goal, this will provide 1700 ml formula, 1700 calories, 106 grams protein, 1426 ml water from formula + 0 ml water from protein powder administration and 100% of RDI's for vitamins and minerals. Enteral access: OGT Oxygen Therapy/airway: O2 Device: Ventilator Lab Results Component Value Date NA 138 04/24/2020 K 3.4 (L) 04/24/2020 CL 102 04/24/2020 CO2 26 04/24/2020 BUN 9 (L) 04/24/2020 CREATININE 0.45 (L) 04/24/2020 GFRAA 142 04/24/2020 MAGNESIUM 0.84 04/24/2020 CALCIUM 8.1 (L) 04/24/2020 PHOS 1.8 (L) 04/24/2020 AST 69 (H) 04/22/2020 ALT 84 (H) 04/22/2020 ALKPHOS 50 04/22/2020 BILITOT 0.9 04/22/2020 BILIDIR 0.5 (H) 04/22/2020 IRON 96 04/21/2020 Lab Results Component Value Date POCGLU 135 04/24/2020 Skin Status: Shift Pressure Injury Prevention Occiput: No Injury Thoracic Spine: No Injury Sacral: No Injury Ischial - left: No Injury Ischial - right: No Injury Heel - left: No Injury Heel - right: No Injury Elbow - left: No Injury Elbow - right: No Injury Device Sites: ETT, OG, O2 sat monitor, oxygen tubing, SCD's/venodynes, IV sites, ECG Leads, BP Cuff Other Sites: condom cath, EVD drain Relevant medications: pepcid, folvite, MVI with minerals, phenobarbital, bowel meds, thiamine, liquid tylenol, others noted. Last Bowel Movement: 04/19/20 I/O from last 2 shifts: Intake/Output Summary (Last 24 hours) at 04/24/2020 1052 Last data filed at 04/24/2020 0800 Gross per 24 hour Intake 3594 ml Output 2171 ml Net 1423 ml Admit Weight: 62.6 kg Estimated body mass index is 23.24 kg/m?? as calculated from the following: Height as of this encounter: 168 cm (5' 6.14). Weight as of this encounter: 65.6 kg (144 lb 10 oz). Bryant Body Weight: n/a Usual Body Weight: n/a Wt Readings from Last 10 Encounters: 04/23/20 65.6 kg (144 lb 10 oz) Patient Vitals for the past 168 hrs: Weight 04/23/20 0100 65.6 kg (144 lb 10 oz) 04/22/20 0400 65.9 kg (145 lb 4.5 oz) 04/20/20 2102 62.6 kg (138 lb) Assessment: Nutrition intake and intake history/Interview: n/a Estimated needs: Calories: 8848-2372 (25-30 kcal/kg) Protein: 99 grams (1.5 g/kg) Average tube feeding provision over past 2 days; 620mL vs daily goal volume of 1700 mL formula (36%of goal) Tolerance or barriers to meeting needs: holds on TFs, intermittent pressor use. Nutrition Focused Physical Exam (NFPE): Not performed Protein-calorie Malnutrition: Not identified (Chip garcia al, JPEN J Parenteral Enteral Nutr. 2012 March; 36(3): 273-83) Nutrition to continue to follow up while inpatient JEANETTE LÓPEZ Pager #:[phone] * Shelley Santana PA - 04/24/2020 6:59 AM EDT NEUROSURGERY PROGRESS NOTE ID: Ollie Burnett Sr. is a 60 y.o. male with spontaneous R BG IPH with IVH leading to hydrocephalus s/p L EVD placement. INTERVAL Hx: - TMax 38.6 with fever work-up sent. Started on vanc/zosyn. - MRI Brain shows small scattered acute infarcts - LEFT frontal EVD open at 10 cm H2O MEDICATIONS: Scheduled Meds: ??? piperacillin-tazobactam 3.375 g Intravenous Q8H ??? vancomycin 1 g Intravenous Q8H ??? [START ON 04/25/2020] Vancomycin Level - MAR Order Reminder NOT APPLICABLE Once ??? amLODIPine 5 mg Oral Daily ??? heparin (Porcine) 5,000 Units Subcutaneous Q8H JOSE ??? PHENobarbitaL 0.36 mg/kg/dose (Bryant) Oral BID Followed by ??? [START ON 04/25/2020] PHENobarbitaL 0.18 mg/kg/dose (Bryant) Oral BID ??? thiamine 100 mg Oral Daily ??? folic acid 1 mg Oral Daily ??? multivitamin with minerals 1 tablet Oral Daily ??? shift total and Settings verification 1 each Intravenous 2 Times Daily - Shift Total ??? senna-docusate 2 tablet Oral BID ??? chlorhexidine 15 mL Oral BID ??? famotidine 20 mg Intravenous 2 times per day ??? levETIRAcetam 500 mg Intravenous 2 times per day Continuous Infusions: ??? tube feeding diet 85 mL/hr at 04/24/20 1213 ??? NORepinephrine 0 mcg/min (04/23/20 0800) ??? fentaNYL 0 mcg/hr (04/23/20 0800) ??? niCARdipine 2.5 mg/hr (04/24/20 0645) ??? sodium chloride 0.9% 75 mL/hr (04/23/20 0600) PRN: Potassium supplement in solution, 20-60 mEq, Q4H PRN PHENobarbitaL, 3 mg/kg/dose (Bryant), Q30 Min PRN labetalol, 10-20 mg, Q15 Min PRN enalaprilat, 1.25 mg, Q6H PRN magnesium hydroxide, 10 mL, Nightly PRN bisacodyL, 10 mg, Daily PRN acetaminophen, 975 mg, Q6H PRN Or acetaminophen, 975 mg, Q6H PRN Or acetaminophen, 975 mg, Q6H PRN fentaNYL (PF), 25 mcg, Q30 Min PRN polyethylene glycol (MIRALAX)oral powder, 17 g, Daily PRN EXAM: Temp: [36.5 ??C (97.7 ??F)-38.6 ??C (101.4 ??F)] Heart Rate: [76-120] Resp: [17-44] BP: (153)/(50) SpO2: [94 %-100 %] Heart Rate from SpO2: [76 bpm-121 bpm] I/O: Intake/Output Summary (Last 24 hours) at 04/24/2020 1245 Last data filed at 04/24/2020 0800 Gross per 24 hour Intake 3240 ml Output 1845 ml Net 1395 ml Drains: L frontal EVD @ 10 cm H2O, output = 193 cc x 24h ICPs 4-12 NEURO: Intubated, recently received dose of fentanyl Eyes do not open to voice or noxious stimuli PERRL MOTOR: RUE: localizes to noxious stimuli (reported to give thumbs up to command prior to fentanyl) LUE: flaccid RLE: localizes to noxious stimuli (reported to weakly wiggles toes to command) LLE: withdrawals to noxious stimuli LABS: Recent Labs 04/24/20 0215 04/23/20 0350 04/22/20 0050 WBC 10.1* 9.2 7.7 HGB 12.3* 11.7* 11.9* PLATELET 143* 124* 129* Recent Labs 04/24/20 1130 04/24/20 0215 04/23/20 1000 04/23/20 0350 04/22/20 0050 NA -- 138 -- 140 -- 138 K 3.7 3.4* 4.0 3.8 < > 3.3* CL -- 102 -- 107 -- 103 CO2 -- 26 -- 26 -- 24 BUN -- 9* -- 10 -- 10 CREATININE -- 0.45* -- 0.36* -- 0.54* < > = values in this interval not displayed. No results for input(s): PT, INR in the last 72 hours. IMAGING: MRI brain wo 04/23 1. Scattered punctate cortical and white matter acute infarcts, likely microembolic, RIGHT greater than LEFT. 2. Redemonstrated large amount of intraventricular hemorrhage dissecting from the RIGHT caudate head and globus pallidus, with persistent hydrocephalus and regional mass effect as described above. CT head 04/22 IMPRESSION No significant interval change. MRI brain 04/21 IMPRESSION Right basal ganglia parenchymal hemorrhage with intraventricular extension and ventricular enlargement. No evidence of underlying parenchymal enhancing mass. Assessment: This is a 60 y.o. male with R BG IPH with IVH leading to hydrocephalus s/p L EVD placement. DSA 04/22 without aneurysm or vascular malformation. With change in neuro exam post DSA and having been started on phenobarbital for ETOH withdrawal, repeat CT head stable. MRI with tiny scattered acute infarcts does not provide explanation for change in exam. Problem List: R BG IPH with IVH Hydrocephalus Plan: -Q1 neuro checks -SBP<160 -EVD open at 10 cm H2O, monitor output -ICP monitoring hourly. Call Neurosurgery for ICP>20mmHg for >15mins without stimulation -DVT ppx: SCDs; SQH -Stroke neurology consult -Keppra 500 mg BID for seizure ppx -vEEG and AEDs per NCCU -Follow-up on CSF cx -Extubate as able per NCCU For questions please call NSGY pager [phone] EMBER Herrera 04/24/2020 12:45 PM Clinical Documentation Improvement: Active Hospital Problems Diagnosis ??? 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 Intraventricular hemorrhage Resolved Hospital Problems No resolved problems to display. * Myah Vleiz, KRYSTAL - 04/23/2020 8:17 PM EDT AMV Protocol: Yes SBT Protocol: Yes SBT: Passed SBT Assessment: Initial Vent Settings: PSV 8/5/30% Initial Measurements: HR:106 RR: 20 VT: 571 MV: 10.3 SpO2: 95 ETCO2: 32 RASS (Bonilla Agitation-Sedation Scale): -3-->moderate sedation Settings for SBT, if other than Protocol: CPAP SBT Vent Settings: FiO2: 30% and PEEP: 5 30 minute measurements: HR: 113 RR: 24 VT: 618 MV: 13.9 SpO2: 96 ETCO2: 33 Vent Settings: Ventilator Mode: PS/CPAP PEEP Set: 5 FiO2: 30 % PSV: (S) 8 Ventilator Measurements: Resp: 22 Vt Spontaneous: 618 Ve: 13.9 SpO2: 95 % EtCO2: 30 mmHg Airway: 7.5 @ 26 cm at the Teeth. Skin Integrity: WDL Breath Sounds: Diminished Secretions: Large thick yates Assessment / Events / Plan of the Day: Pt transported to MRI without incident. Pt required suctioning for large thick yates secretions a few times this shift, FiO2 was increased to 30% for desaturations without improvement post suctioning. Pt passed SBT and was replaced on PSV 8/30%. Will continue to monitor, awaiting possible extubation today, mental status has improved significantly. MYAH VELIZ, SCREENER AND BLENDER OPERATOR * Rajiv Xavier MD - 04/23/2020 12:58 PM EDT NEUROCRITICAL CARE PROGRESS NOTE Date of Admission: 04/20/2020 5:24 PM LOS: 3 ICU LOS: 2d 14h 24 Hour Events: -s/p DSA 04/22 negative for aneurysm or AVM -left frontal EVD @10 (ICP3-10; 180/24 hr) -Neuro exam worsened 04/22 afternoon, repeat head CT unchanged -Phenobarb load for etoh withdrawal, held for change in neuro exam -cvEEG no seizures Active Medications: ??? tube feeding diet 0 mL/hr at 04/23/20 0958 ??? NORepinephrine 0 mcg/min (04/23/20 0800) ??? fentaNYL 0 mcg/hr (04/23/20 0800) ??? niCARdipine Stopped (04/23/20 0938) ??? sodium chloride 0.9% 75 mL/hr (04/23/20 0600) ??? potassium phosphate 15 mmol Intravenous Q4H ??? heparin (Porcine) 5,000 Units Subcutaneous Q8H JOSE ??? PHENobarbitaL 0.72 mg/kg/dose (Bryant) Oral BID Followed by ??? [START ON 04/24/2020] PHENobarbitaL 0.36 mg/kg/dose (Bryant) Oral BID Followed by ??? [START ON 04/25/2020] PHENobarbitaL 0.18 mg/kg/dose (Bryant) Oral BID ??? thiamine 100 mg Oral Daily ??? folic acid 1 mg Oral Daily ??? multivitamin with minerals 1 tablet Oral Daily ??? shift total and Settings verification 1 each Intravenous 2 Times Daily - Shift Total ??? sodium chloride 0.9 % (flush) 5 mL Intravenous BID ??? senna-docusate 2 tablet Oral BID ??? chlorhexidine 15 mL Oral BID ??? famotidine 20 mg Intravenous 2 times per day ??? levETIRAcetam 500 mg Intravenous 2 times per day PHENobarbitaL, sodium chloride 0.9 % (flush), lidocaine, labetalol, enalaprilat, magnesium hydroxide, bisacodyL, acetaminophen OR acetaminophen OR acetaminophen, potassium chloride in water OR potassium chloride in water OR potassium chloride in water, fentaNYL (PF), polyethylene glycol (MIRALAX)oral powder Vitals: Vital Sign Ranges: Last value Range last 24 hrs Temperature Temp: 37.5 ??C (99.5 ??F) Temp: [36.4 ??C (97.5 ??F)-37.5 ??C (99.5 ??F)] Heart Rate Heart Rate: 84 Heart Rate: [59-91] Blood Pressure BP: 145/57 BP: (145)/(57) Respiratory Rate Resp: 21 Resp: [10-21] SpO2 SpO2: 95 % SpO2: [92 %-100 %] Art BP BP (Arterial Line): 142/50 BP (Arterial Line): (110-172)/(39-64) Intake/Output: I/O 04/20 07 - 04/21 0700 04/21 07 - 04/22 0700 06 07 - 04/23 0700 06/ 0701 - 03 0700 P.O. 0 0 0 I.V. (mL/kg/hr) 1395 3646.8 (2.3) 2903 (1.8) 495.1 (1.3) Blood 0 0 Other 80 0 0 NG/GT 311 607 272 IV Piggyback 11.8 100 356 Total Intake(mL/kg) 1395 (22.3) 4049.6 (61.5) 3610 (55) 1123.1 (17.1) Urine (mL/kg/hr) 2250 1045 (0.7) 1000 (0.6) 825 (2.1) Emesis/NG output 0 0 0 Other 252 253 280 59 Stool 0 0 Blood 0 Total Output(mL/kg) 2502 (40) 1298 (19.7) 1280 (19.5) 884 (13.5) Net -1107 +2751.6 +2330 +239.1 Urine Occurrence 6 x 6 x 0 x Stool Occurrence 0 x 0 x Emesis Occurrence 0 x 0 x 0 x Lines/Drains/Airways: Percutaneous Central Line - Triple Lumen 04/20/202049 subclavian vein, left (Active) Indication/Daily Review of Necessity Medications known to cause phlebitis (vasopressors, concentrated electrolytes, TPN, chemotherapy) 04/22/2020 8:00 AM Site Preparation/Maintenance dressing: dry and intact 04/22/2020 8:00 AM Needleless Connector change due 04/25/20 04/22/2020 4:00 AM Securement sutures, secured with 04/22/2020 8:00 AM Distal Patency/Maintenance needleless connector changed 04/22/2020 4:00 AM Medial Patency/Maintenance needleless connector changed 04/22/2020 4:00 AM Proximal Patency/Maintenance needleless connector changed 04/22/2020 4:00 AM Phlebitis 0-->no symptoms 04/22/2020 2:00 PM Infiltration 0-->no symptoms 04/22/2020 2:00 PM Site Signs/Symptoms no redness;no warmth;no swelling;no pain 04/22/2020 8:00 AM Peripheral IV Line - Single Lumen 04/20/20 1817 median cubital vein (antecubital fossa), left 18 gauge (Active) Indication/Daily Review of Necessity medication therapy continuous 04/22/2020 8:00 AM Site Preparation/Maintenance dressing: dry and intact 04/22/2020 8:00 AM Securement catheter stabilization device, secured with 04/22/2020 8:00 AM Patency/Maintenance flushed without difficulty;blood return, able to obtain;alcohol impregnated capapplied 04/22/2020 8:00 AM Phlebitis 0-->no symptoms 04/22/2020 12:00 PM Infiltration 0-->no symptoms 04/22/2020 12:00 PM Site Signs/Symptoms no redness;no warmth;no swelling;no pain;no palpable cord;no streak formation;no drainage 04/21/2020 8:00 PM Peripheral IV Line - Single Lumen 04/20/20 1831 median cubital vein (antecubital fossa), right 18 gauge (Active) Indication/Daily Review of Necessity medication therapy intermittent 04/22/2020 8:00 AM Site Preparation/Maintenance dressing: dry and intact 04/22/2020 8:00 AM Securement catheter stabilization device, secured with 04/22/2020 8:00 AM Patency/Maintenance flushed without difficulty;blood return, able to obtain;alcohol impregnated capapplied 04/22/2020 8:00 AM Phlebitis 0-->no symptoms 04/22/2020 2:00 PM Infiltration 0-->no symptoms 04/22/2020 2:00 PM Site Signs/Symptoms no swelling;no warmth;no redness;no pain;no palpable cord;no streak formation;no drainage 04/21/2020 8:00 PM External Catheter 04/21/20 1823 (Active) Securement secured to upper leg with adhesive device 04/21/2020 8:00 PM Skin no redness;no breakdown;penis/scrotum cleansed with soap and water;skin barrier applied 04/21/2020 8:00 PM Tolerance no signs/symptoms of discomfort 04/21/2020 8:00 PM Urine Output (mL) 120 04/22/2020 6:00 AM Naso/Oral Tube 04/20/20 1800 center mouth (Active) Placement Check Methods distal length tube measured 04/21/2020 8:00 PM Catheter Depth (cm) 60 cm 04/22/2020 8:00 AM Tolerance no adverse signs/symptoms 04/22/2020 8:00 AM Securement taped to ETT 04/22/2020 8:00 AM Clamp Status/Tolerance unclamped 04/22/2020 8:00 AM Suction Setting/Drainage Method low suction;continuous setting 04/22/2020 8:00 AM Drainage Color brown, light 04/21/2020 7:54 AM Drainage Consistency thin 04/21/2020 7:54 AM Insertion Site Appearance no warmth;no redness;no tenderness;no skin breakdown;no drainage 04/21/2020 7:54 AM Flush/Irrigation flushed with;water;flushed with ease 04/21/2020 8:00 PM Tube Intake (mL) 0 04/22/2020 12:00 PM General Intake (mL) 0 04/22/2020 8:00 AM General Output (mL) 0 04/22/2020 2:00 PM EVD (External Ventricular Drain) 04/20/201999 (Active) Distance Above Site (cm H2O) 0.1 m (3.94) 04/22/2020 8:00 AM Ventricular Drainage red 04/22/2020 8:00 AM Insertion Site dressing dry and intact 04/22/2020 8:00 AM Insertion Site Drainage dried 04/22/2020 8:00 AM Interventions open;zeroed 04/22/2020 8:00 AM General Output (mL) 26 04/22/2020 2:00 PM ETT Airway (Active) Airway Size Verification 7.5 mm 04/22/2020 11:15 AM Site center of mouth 04/22/2020 11:15 AM Appearance clean 04/22/2020 11:15 AM Tube Securement endotracheal (ET) tube swenson 04/22/2020 11:15 AM Tube Reference Point teeth 04/22/2020 11:15 AM Airway Tube Secured At (cm) 26 04/22/2020 11:15 AM Cuff Pressure (cm H2O/mLH2O) 24 04/22/2020 6:35 AM Tube Securement Date 04/20/20 04/22/2020 4:16 AM Bite Block none 04/22/2020 4:16 AM Manual Resuscitator at bedside Yes 04/22/2020 11:15 AM Arterial Line 04/20/202047 other (see comments) radial artery, left (Active) Dressing dressing dry and intact 04/22/2020 8:00 AM Arterial Catheter Securement catheter securement device utilized 04/22/2020 8:00 AM Lumen Patency/Care flushed without difficulty 04/22/2020 8:00 AM Phlebitis 0-->no symptoms 04/22/2020 2:00 PM Infiltration 0-->no symptoms 04/22/2020 2:00 PM Waveform normal 04/22/2020 8:00 AM Site Signs/Symptoms no redness;no swelling;no warmth;no pain 04/22/2020 8:00 AM Incision 04/22/20 0938 Right wrist non-laparascopic puncture (Active) Labs: No results found for: PHART, PO2ART, [id number] Recent Labs 04/23/20 0350 WBC 9.2 RBC 3.43* HGB 11.7* HCT 34.3* MCV 100.0* MCH 34.1* MCHC 34.1 PLATELET 124* RDWCV 13.0 Recent Labs 04/23/20 1000 04/23/20 0350 NA -- 140 K 4.0 3.8 CL -- 107 CO2 -- 26 BUN -- 10 CREATININE -- 0.36* GLUCOSE -- 146 Imaging: CT 04/22 The large right basal ganglia hemorrhage that decompresses into the ventricular system is not significantly changed in size. Blood continues to cast the lateral third and fourth ventricles with moderate dilatation of the lateral and third ventricles. Left frontal approach ventricular catheter is in place. Physical Exam: Gen intubated, no sedation Neuro Eyes open to voice PERRL +Corneals +Cough MOTOR: RUE: squeezes, thumbs up to command LUE: no movement to stimulation RLE: wiggles toes to command LLE: withdraws to stimulation COR RRR PUL Clear ABD soft EXT cool, pulses present ASSESSMENT & PLAN: 60 year-old man with Right BG bleed and IVH with HC (s/p EVD). Neuro exam worsened, not moving leftarm, only withdraws left leg. CT obtained for neuroworsening showed no change # Neuro-?? > spontaneous??ICH: R caudate IPH with IVH > ETOH/substance abuse: UDS + cannabinoids and oxycodone - q1h neuro checks, VS - cvEEG--no seizures, will consider d/c if extubated and can follow clinical exam - Keppra 500mg BID (received 1Gm load) - HOB > 30 deg -??EVD open at??[id number], trend ICP/CPP - obtain STAT NCHCT for any change in neuro status -DSA negative - MRI ??brain pending - Stroke Neurology consult - analgesia: PRN Tylenol, Fentanyl - PHB load per protocol for ETOH withdrawal, held for change in exam ?? # CV - - SBP goal < 160 ?- labetalol, hydralazine for SBP >??160 ?- if frequent use of PRNs, start nicardipine gtt - troponin neg - TTE with bubble study ?? # Pulm - -??Intubated for airway protection - passed SBT today, will wean to extubate after MRI ?? # GI - - NPO for extubation - IMPREGNATOR eval post-extubation -??maintain??bowel reg - GI ppx: pepcid IVP while intubated - consult Nutrition for TF recs ?? # FEN/ - - maintain euvolemia - avoid hypotonic fluids - Goal Na 135-145, K > 4, Mg > 1 - ICU potassium repletion protocol - external catheter in place ?? # Heme - > hemochromatosis - goal Hgb > 7, INR < 1.5, Platelets > 100k -??daily CBC, check iron=96 - DVT ppx: SCDs - SQH ?? # Endo - - goal glucose 120-180 --> ISS??PRN # ID - - for temp > 38.4 C --> UA, CXR, blood cx, sputum cx - tylenol PRN - Rapid COVID test:??negative ?? # ICU Bundle Feeding: NPO for extubation) Analgesia: PRN Tylenol Sedation: None Thromboprophylaxis: SQH/SCDs ?? HOB > 30 degrees Ulcer prophylaxis: H2B Glycemic Control: goal glucose 120-180, ISS PRN SBT: N/A ?? Bowel Reg: RBO Indwelling Catheters/Lines/Tubes: PIV x2, left radial art (04/20), LSC TLC (04/20), OGT (04/20), brewster(04/20-), ETT (04/20), left frontal EVD (04/20) De-escalate Antibiotics: N/A ?? Code Status - Full Code ?? Dispo - ICU //////////////////////////////////////////////////////////////////////////////// //// Attestation: IS PATIENT CRITICALLY ILL ? Is there a high potential of sudden, clinically significant, or life threatening deterioration? YES Is there a need for direct personal assessment and management to treat/prevent multiple vital organfailure/deterioration? YES If this patient is not critically ill, the reason for continued hospitalization is n/a. PATIENT IS CRITICALLY ILL WITH THESE DIAGNOSES BEING MANAGED BY [facility] TEAM: Intracerebral hemorrhage Intraventricular hemorrhage Altered mental status Alcohol abuse Intubated for airway protection I personally performed 32 minutes of aggregate critical care time exclusive of procedures and teaching. This includes time spent during direct patient evaluation and reassessment, interpreting diagnostic tests, directing life and/or organ supporting interventions and documentation on the unit. * Casey Quintanilla RCP - 04/23/2020 10:19 AM EDT Respiratory Mechanical Ventilation Note AM protocol with SBT. Vent settings: Mode: Pressure Support/CPAP PS Above PEEP (cm H2O): 8 Set PEEP (cm H2O): 5 Set FiO2: 21 % Vent Measurements: Tidal Volume Measured Exp.: 566 Mean Airway Pressure (cm H2O): 8.7 Minute Ventilation Total Exhaled (L/min): 11.1 Resp: 20 SpO2: 92 % Airway: 7.5 mm ETT, 26 cm @ Teeth/Gum. Lung sounds: Diminished and Clear Secretions: None noted. Assessment: Upon exam this AM pt was awake and reactive to cares per base line from previous exams.Pt had the above noted OETT in place with no observed oral facial break down. Pt had good bilateralchest rise. Pt care was transferred to [facility] Avi @ 1200, BIOMEDICAL ENGINEERING PROFESSORYen Quintanilla received pt care back at 1600. Upon exam this Afternoon pt was on above ntoed vents settings. Pt reportedly maintained well with no events. Plan per team to maintain current settings, possible extubation in the AM. Plan: Extubation. Respiratory Pager# [phone] * Shelley Santana PA - 04/23/2020 7:18 AM EDT NEUROSURGERY PROGRESS NOTE ID: Ollie Burnett Sr. is a 60 y.o. male with spontaneous R BG IPH with IVH leading to hydrocephalus s/p L EVD placement. INTERVAL Hx: - DSA yesterday showed no aneurysm or vascular malformation - Change in neuro exam post DSA and being started on phenobarbital for ETOH withdrawal. CT Head stable. MRI pending. Further doses of phenobarbital held. - vEEG without evidence of seizure - LEFT frontal EVD open at 10 cm H2O MEDICATIONS: Scheduled Meds: ??? potassium phosphate 15 mmol Intravenous Q4H ??? magnesium sulfate 2 g Intravenous Once ??? PHENobarbitaL 0.72 mg/kg/dose (Bryant) Oral BID Followed by ??? [START ON 04/24/2020] PHENobarbitaL 0.36 mg/kg/dose (Bryant) Oral BID Followed by ??? [START ON 04/25/2020] PHENobarbitaL 0.18 mg/kg/dose (Bryant) Oral BID ??? thiamine 100 mg Oral Daily ??? folic acid 1 mg Oral Daily ??? multivitamin with minerals 1 tablet Oral Daily ??? shift total and Settings verification 1 each Intravenous 2 Times Daily - Shift Total ??? sodium chloride 0.9 % (flush) 5 mL Intravenous BID ??? senna-docusate 2 tablet Oral BID ??? chlorhexidine 15 mL Oral BID ??? famotidine 20 mg Intravenous 2 times per day ??? levETIRAcetam 500 mg Intravenous 2 times per day Continuous Infusions: ??? NORepinephrine Stopped (04/22/20 1948) ??? tube feeding diet 50 mL/hr at 04/23/20 0600 ??? fentaNYL Stopped (04/22/20 1400) ??? niCARdipine Stopped (04/22/20 1734) ??? sodium chloride 0.9% 75 mL/hr (04/23/20 0600) ??? propofoL Stopped (04/22/20 1300) PRN: PHENobarbitaL, 3 mg/kg/dose (Bryant), Q30 Min PRN sodium chloride 0.9 % (flush), 5-20 mL, Q1 Min PRN lidocaine, 0.3 mL, Once PRN labetalol, 10-20 mg, Q15 Min PRN enalaprilat, 1.25 mg, Q6H PRN magnesium hydroxide, 10 mL, Nightly PRN bisacodyL, 10 mg, Daily PRN acetaminophen, 975 mg, Q6H PRN Or acetaminophen, 975 mg, Q6H PRN Or acetaminophen, 975 mg, Q6H PRN potassium chloride in water, 20 mEq, Q1H PRN Or potassium chloride in water, 20 mEq, Q1H PRN Or potassium chloride in water, 20 mEq, Q1H PRN fentaNYL (PF), 25 mcg, Q30 Min PRN polyethylene glycol (MIRALAX)oral powder, 17 g, Daily PRN EXAM: Temp: [35.4 ??C (95.7 ??F)-37.4 ??C (99.3 ??F)] Heart Rate: [59-93] Resp: [10-19] BP: (145)/(57) SpO2: [94 %-100 %] Heart Rate from SpO2: [59 bpm-93 bpm] I/O: Intake/Output Summary (Last 24 hours) at 04/23/2020 0718 Last data filed at 04/23/2020 0600 Gross per 24 hour Intake 3610 ml Output 1280 ml Net 2330 ml Drains: L frontal EVD @ 10 cm H2O, output = 180 cc x 24h ICPs 4-13 NEURO: Intubated, off sedation Eyes open to voice PERRL MOTOR: RUE: thumbs up to command LUE: flaccid RLE: weakly wiggles toes to command LLE: withdrawals to noxious stimuli LABS: Recent Labs 04/23/2034904/22/204904/21/2099 WBC 9.2 7.7 8.4 HGB 11.7* 11.9* 14.0 PLATELET 124* 129* 147 Recent Labs 04/23/2034904/22/20201004/22/204904/21/2099 NA 140 -- 138 141 K 3.8 3.0* 3.3* 4.1 CL 107 -- 103 105 CO2 26 -- 24 22 BUN 10 -- 10 9* CREATININE 0.36* -- 0.54* 0.54* Recent Labs 05/31/20 0100 05/30/20 1820 PT 12.9* 14.3* INR 1.1 1.2 IMAGING: MRI brain wo 04/[address] head 04/22 IMPRESSION No significant interval change. MRI brain 04/21 IMPRESSION Right basal ganglia parenchymal hemorrhage with intraventricular extension and ventricular enlargement. No evidence of underlying parenchymal enhancing mass. Assessment: This is a 60 y.o. male with R BG IPH with IVH leading to hydrocephalus s/p L EVD placement. DSA 04/22 without aneurysm or vascular malformation. With change in neuro exam post DSA and having been started on phenobarbital for ETOH withdrawal, repeat CT head stable. Neuro exam stable this AM as compared to post DSA. Problem List: R BG IPH with IVH Hydrocephalus Plan: -Q1 neuro checks -SBP<160 -EVD open at 10 cm H2O, monitor output -ICP monitoring hourly. Call Neurosurgery for ICP>20mmHg for >15mins without stimulation -DVT ppx: SCDs; ok to start SQH -Stroke neurology consult -Keppra 500 mg BID for seizure ppx -vEEG and AEDs per NCCU -MRI Brain wo pending -Extubate as able per NCCU For questions please call [facility] pager [phone] EMBER Herrera 04/23/2020 7:18 AM Clinical Documentation Improvement: Active Hospital Problems Diagnosis ??? Intraventricular hemorrhage Resolved Hospital Problems No resolved problems to display. * Myah Veliz, SCREENER AND BLENDER OPERATOR - 04/22/2020 7:53 PM EDT AMV Protocol: Yes SBT Protocol: Yes SBT: Passed SBT Assessment: Initial Vent Settings: PSV 8/5/30% Initial Measurements: HR:93 RR: 18 VT: 502 MV: 8.1 SpO2: 100 ETCO2: 40 RASS (Bonilla Agitation-Sedation Scale): -2-->light sedation Settings for SBT, if other than Protocol: CPAP SBT Vent Settings: FiO2: 30% and PEEP: 5 30 minute measurements: HR: 81 RR: 18 VT: 488 MV: 8.2 SpO2: 100 ETCO2: 38 Assessment during SBT: Unchanged Vent Settings: Ventilator Mode: PS/CPAP PEEP Set: 5 FiO2: 21 % PSV: (S) 8 Ventilator Measurements: Resp: 17 Vt Spontaneous: 488 Ve: 8.9 SpO2: 96 % EtCO2: 37 mmHg Airway: 7.5 @ 26 cm at the Teeth. Skin Integrity: WDL Breath Sounds: Diminished Secretions: Small thick yates Assessment / Events / Plan of the Day: Pt received on PSV 8/5/30%, Pt was able to pass SBT on CPAP 5/ 30%, post SBT was placed on PSV 8/5/21%. Awaiting possible MRI today for mental status/neuro exam. MYAH VELIZ, KRYSTAL * Isi Abdi RD - 04/22/2020 4:11 PM EDT Nutrition Progress Note Ollie Burnett Sr. is a 60 y.o. male admitted with right BG bleed and IVH with HC (s/p EVD), relevant medical history includes ETOH abuse and hemochromatosis. Reason for intervention: ICU Tube-feeding Nutrition Recommendations: Promote with a goal rate of 85 ml per hour. This rate is calculated to compensate for unplanned time off feedings due to potential procedures, etc. At goal, this will provide 1700 ml formula, 1700 calories, 106 grams protein, 1426 ml water from formula + 0 ml water from protein powder administration and 100% of RDI's for vitamins and minerals. Labs: monitor Mg and Phos daily, replenish as needed. I was not able to discuss with patient's provider. Team paged with nutrition recommendations. Pager# [phone]. All Active TF Orders: Tubefeeding Orders (From admission, onward) Start Dose/Rate Route Frequency Ordered Stop 04/21/20 1145 tube feeding diet Promote at 50 ml/hr 1,200 mL Per NG tube CONTINUOUS 04/21/20 1151 This rate is calculated to compensate for unplanned time off feedings due to potential procedures, etc. At goal, this will provide 1000 ml formula, 1000 calories, 62.5 grams protein, 839 ml water from formula + 0 ml water from protein powder administration and 100% of RDI's for vitamins and minerals. Enteral access: OGT Oxygen Therapy/airway: O2 Device: Ventilator Lab Results Component Value Date NA 138 04/22/2020 K 3.3 (L) 04/22/2020 CL 103 04/22/2020 CO2 24 04/22/2020 BUN 10 04/22/2020 CREATININE 0.54 (L) 04/22/2020 GFRAA 131 04/22/2020 MAGNESIUM 0.86 04/22/2020 CALCIUM 7.9 (L) 04/22/2020 PHOS 1.9 (L) 04/22/2020 AST 69 (H) 04/22/2020 ALT 84 (H) 04/22/2020 ALKPHOS 50 04/22/2020 BILITOT 0.9 04/22/2020 BILIDIR 0.5 (H) 04/22/2020 IRON 96 04/21/2020 No results found for: POCGLU Skin Status: Shift Pressure Injury Prevention Occiput: No Injury Thoracic Spine: No Injury Sacral: No Injury Ischial - left: No Injury Ischial - right: No Injury Heel - left: No Injury Heel - right: No Injury Elbow - left: No Injury Elbow - right: No Injury Device Sites: O2 sat monitor, IV sites, ECG Leads, BP Cuff, SCD's/venodynes Other Sites: EVD Relevant medications: pepcid, folvite, MVI with minerals, phenobarbital, bowel meds, thiamine, liquid tylenol, others noted. 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 as calculated from the following: Height as of this encounter: 168 cm (5' 6.14). Weight as of this encounter: 65.9 kg (145 lb 4.5 oz). Bryant Body Weight: n/a Usual Body Weight: n/a Wt Readings from Last 10 Encounters: 04/22/20 65.9 kg (145 lb 4.5 oz) Assessment: Nutrition intake and intake history/Interview: n/a Estimated needs: Calories: 1796-2123 (25-30 kcal/kg) Protein: 99 grams (1.5 g/kg) Tolerance or barriers to meeting needs: n/a Nutrition Focused Physical Exam (NFPE): Not performed Protein-calorie Malnutrition: Not identified (Cora, GERBER J Parenteral Enteral Nutr. 2012 March; 36(3): 273-83) Nutrition to continue to follow up while inpatient JEANETTE LÓPEZ Pager #:[phone] * Rajiv Xavier MD - 04/22/2020 3:27 PM EDT NEUROCRITICAL CARE PROGRESS NOTE Date of Admission: 04/20/2020 5:24 PM LOS: 2 ICU LOS: 1d 17h 24 Hour Events: -s/p DSA today -left frontal EVD @10 (ICP4-17; 253/24 hr) -Neuro exam unchanged Active Medications: ??? NORepinephrine Stopped (04/22/20 1239) ??? tube feeding diet Stopped (04/22/20 0328) ??? fentaNYL Stopped (04/22/20 1400) ??? niCARdipine 10 mg/hr (04/22/20 1509) ??? sodium chloride 0.9% 75 mL/hr (04/22/20 0039) ??? propofoL Stopped (04/22/20 1300) ??? PHENobarbitaL 3 mg/kg/dose (Bryant) Intravenous Q3H ??? [START ON 04/23/2020] PHENobarbitaL 0.72 mg/kg/dose (Bryant) Oral BID Followed by ??? [START ON 04/24/2020] PHENobarbitaL 0.36 mg/kg/dose (Bryant) Oral BID Followed by ??? [START ON 04/25/2020] PHENobarbitaL 0.18 mg/kg/dose (Bryant) Oral BID ??? thiamine 100 mg Oral Daily ??? folic acid 1 mg Oral Daily ??? multivitamin with minerals 1 tablet Oral Daily ??? shift total and Settings verification 1 each Intravenous 2 Times Daily - Shift Total ??? sodium chloride 0.9 % (flush) 5 mL Intravenous BID ??? senna-docusate 2 tablet Oral BID ??? chlorhexidine 15 mL Oral BID ??? famotidine 20 mg Intravenous 2 times per day ??? levETIRAcetam 500 mg Intravenous 2 times per day PHENobarbitaL, sodium chloride 0.9 % (flush), lidocaine, labetalol, enalaprilat, magnesium hydroxide, bisacodyL, acetaminophen OR acetaminophen OR acetaminophen, potassium chloride in water OR potassium chloride in water OR potassium chloride in water, fentaNYL (PF), polyethylene glycol (MIRALAX)oral powder Vitals: Vital Sign Ranges: Last value Range last 24 hrs Temperature Temp: 36.4 ??C (97.5 ??F) Temp: [35.4 ??C (95.7 ??F)-36.9 ??C (98.4 ??F)] Heart Rate Heart Rate: 65 Heart Rate: [59-103] Blood Pressure BP: 145/57 BP: (145-147)/(54-57) Respiratory Rate Resp: 12 Resp: [10-24] SpO2 SpO2: 96 % SpO2: [94 %-100 %] Art BP BP (Arterial Line): 139/55 BP (Arterial Line): (107-170)/(40-82) Intake/Output: I/O 04/19 701 - 04/20 0704/20 0704/21 07 - 04/22 0700 04/22 07 - 04/23 0700 P.O. 0 0 I.V. (mL/kg/hr) 1395 3646.8 (2.3) 947 (1.7) Blood 0 Other 80 0 NG/GT 311 100 IV Piggyback 11.8 Total Intake(mL/kg) 1395 (22.3) 4049.6 (61.5) 1047 (15.9) Urine (mL/kg/hr) 2250 1045 (0.7) 0 (0) Emesis/NG output 0 Other 252 253 156 Total Output(mL/kg) 2502 (40) 1298 (19.7) 156 (2.4) Net -1107 +2751.6 +891 Urine Occurrence 6 x 3 x Emesis Occurrence 0 x Lines/Drains/Airways: Percutaneous Central Line - Triple Lumen 04/20/202049 subclavian vein, left (Active) Indication/Daily Review of Necessity Medications known to cause phlebitis (vasopressors, concentrated electrolytes, TPN, chemotherapy) 04/22/2020 8:00 AM Site Preparation/Maintenance dressing: dry and intact 04/22/2020 8:00 AM Needleless Connector change due 04/25/20 04/22/2020 4:00 AM Securement sutures, secured with 04/22/2020 8:00 AM Distal Patency/Maintenance needleless connector changed 04/22/2020 4:00 AM Medial Patency/Maintenance needleless connector changed 04/22/2020 4:00 AM Proximal Patency/Maintenance needleless connector changed 04/22/2020 4:00 AM Phlebitis 0-->no symptoms 04/22/2020 2:00 PM Infiltration 0-->no symptoms 04/22/2020 2:00 PM Site Signs/Symptoms no redness;no warmth;no swelling;no pain 04/22/2020 8:00 AM Peripheral IV Line - Single Lumen 04/20/20 1817 median cubital vein (antecubital fossa), left 18 gauge (Active) Indication/Daily Review of Necessity medication therapy continuous 04/22/2020 8:00 AM Site Preparation/Maintenance dressing: dry and intact 04/22/2020 8:00 AM Securement catheter stabilization device, secured with 04/22/2020 8:00 AM Patency/Maintenance flushed without difficulty;blood return, able to obtain;alcohol impregnated capapplied 04/22/2020 8:00 AM Phlebitis 0-->no symptoms 04/22/2020 12:00 PM Infiltration 0-->no symptoms 04/22/2020 12:00 PM Site Signs/Symptoms no redness;no warmth;no swelling;no pain;no palpable cord;no streak formation;no drainage 04/21/2020 8:00 PM Peripheral IV Line - Single Lumen 04/20/20 1831 median cubital vein (antecubital fossa), right 18 gauge (Active) Indication/Daily Review of Necessity medication therapy intermittent 04/22/2020 8:00 AM Site Preparation/Maintenance dressing: dry and intact 04/22/2020 8:00 AM Securement catheter stabilization device, secured with 04/22/2020 8:00 AM Patency/Maintenance flushed without difficulty;blood return, able to obtain;alcohol impregnated capapplied 04/22/2020 8:00 AM Phlebitis 0-->no symptoms 04/22/2020 2:00 PM Infiltration 0-->no symptoms 04/22/2020 2:00 PM Site Signs/Symptoms no swelling;no warmth;no redness;no pain;no palpable cord;no streak formation;no drainage 04/21/2020 8:00 PM External Catheter 04/21/20 1823 (Active) Securement secured to upper leg with adhesive device 04/21/2020 8:00 PM Skin no redness;no breakdown;penis/scrotum cleansed with soap and water;skin barrier applied 04/21/2020 8:00 PM Tolerance no signs/symptoms of discomfort 04/21/2020 8:00 PM Urine Output (mL) 120 04/22/2020 6:00 AM Naso/Oral Tube 04/20/20 1800 center mouth (Active) Placement Check Methods distal length tube measured 04/21/2020 8:00 PM Catheter Depth (cm) 60 cm 04/22/2020 8:00 AM Tolerance no adverse signs/symptoms 04/22/2020 8:00 AM Securement taped to ETT 04/22/2020 8:00 AM Clamp Status/Tolerance unclamped 04/22/2020 8:00 AM Suction Setting/Drainage Method low suction;continuous setting 04/22/2020 8:00 AM Drainage Color brown, light 04/21/2020 7:54 AM Drainage Consistency thin 04/21/2020 7:54 AM Insertion Site Appearance no warmth;no redness;no tenderness;no skin breakdown;no drainage 04/21/2020 7:54 AM Flush/Irrigation flushed with;water;flushed with ease 04/21/2020 8:00 PM Tube Intake (mL) 0 04/22/2020 12:00 PM General Intake (mL) 0 04/22/2020 8:00 AM General Output (mL) 0 04/22/2020 2:00 PM EVD (External Ventricular Drain) 04/20/201999 (Active) Distance Above Site (cm H2O) 0.1 m (3.94) 04/22/2020 8:00 AM Ventricular Drainage red 04/22/2020 8:00 AM Insertion Site dressing dry and intact 04/22/2020 8:00 AM Insertion Site Drainage dried 04/22/2020 8:00 AM Interventions open;zeroed 04/22/2020 8:00 AM General Output (mL) 26 04/22/2020 2:00 PM ETT Airway (Active) Airway Size Verification 7.5 mm 04/22/2020 11:15 AM Site center of mouth 04/22/2020 11:15 AM Appearance clean 04/22/2020 11:15 AM Tube Securement endotracheal (ET) tube swenson 04/22/2020 11:15 AM Tube Reference Point teeth 04/22/2020 11:15 AM Airway Tube Secured At (cm) 26 04/22/2020 11:15 AM Cuff Pressure (cm H2O/mLH2O) 24 04/22/2020 6:35 AM Tube Securement Date 04/20/20 04/22/2020 4:16 AM Bite Block none 04/22/2020 4:16 AM Manual Resuscitator at bedside Yes 04/22/2020 11:15 AM Arterial Line 04/20/202047 other (see comments) radial artery, left (Active) Dressing dressing dry and intact 04/22/2020 8:00 AM Arterial Catheter Securement catheter securement device utilized 04/22/2020 8:00 AM Lumen Patency/Care flushed without difficulty 04/22/2020 8:00 AM Phlebitis 0-->no symptoms 04/22/2020 2:00 PM Infiltration 0-->no symptoms 04/22/2020 2:00 PM Waveform normal 04/22/2020 8:00 AM Site Signs/Symptoms no redness;no swelling;no warmth;no pain 04/22/2020 8:00 AM Incision 04/22/20 0938 Right wrist non-laparascopic puncture (Active) Labs: No results found for: PHART, PO2ART, [id number] Recent Labs 04/22/20 0050 WBC 7.7 RBC 3.54* HGB 11.9* HCT 35.7* MCV 100.8* MCH 33.6* MCHC 33.3 PLATELET 129* RDWCV 12.7 Recent Labs 04/22/20 0050 NA 138 K 3.3* CL 103 CO2 24 BUN 10 CREATININE 0.54* GLUCOSE 189 Imaging: No new imaging Physical Exam: Gen Sedated, intubated Neuro Eyes closed to voice and stimulation PERRL +Corneals +Cough MOTOR: RUE: squeezes to command LUE: squeezes to command RLE: wiggles toes to command LLE: wiggles toes to command ASSESSMENT & PLAN: 60 [id number] man with Right BG bleed and IVH with HC (s/p EVD). Neuro exam is improving. # Neuro-?? > spontaneous??ICH: R caudate IPH with IVH > ETOH/substance abuse: UDS + cannabinoids and oxycodone - q1h neuro checks, VS - cvEEG - Keppra 500mg BID (received 1Gm load) - HOB > 30 deg -??EVD open at??[id number], trend ICP/CPP - obtain STAT NCHCT for any change in neuro status -DSA negative - MRI ??brain w&wo for etiology of bleed: grossly negative - MVI, thiamine, and folate given substance abuse - Stroke Neurology consult - analgesia: PRN Tylenol, Fentanyl - start PHB protocol for ETOH withdrawal ?? # CV - - SBP goal < 140 ?- labetalol, hydralazine for SBP >??140 ?- if frequent use of PRNs, start nicardipine gtt - troponin neg - TTE with bubble study ?? # Pulm - -??Intubated for airway protection - goal O2 sats > 92%: wean vent support and work towards SBT - chest PT/pulm toileting - IS at bedside - WTE ?? # GI - - NPO diet (Give Meds) - start TF - IMPREGNATOR eval post-extubation -??maintain??bowel reg - GI ppx: pepcid IVP while intubated - consult Nutrition for TF recs ?? # FEN/ - - maintain euvolemia - avoid hypotonic fluids - Goal Na 135-145, K > 4, Mg > 1 - ICU potassium repletion protocol - external catheter in place ?? # Heme - > hemochromatosis - goal Hgb > 7, INR < 1.5, Platelets > 100k -??daily CBC, check iron=96 - DVT ppx: SCDs - hold SQH until PBD #2, confer with NSGY ?? # Endo - - goal glucose 120-180 --> ISS??PRN # ID - - for temp > 38.4 C --> UA, CXR, blood cx, sputum cx - tylenol PRN - Rapid COVID test:??negative ?? # ICU Bundle Feeding: NPO diet (Give Meds) Analgesia: PRN Tylenol, Fentanyl drip Sedation: Propofol drip (paused) Thromboprophylaxis: SCDs ?? HOB > 30 degrees Ulcer prophylaxis: H2B Glycemic Control: goal glucose 120-180, ISS PRN SBT: N/A ?? Bowel Reg: RBO Indwelling Catheters/Lines/Tubes: PIV x2, left radial art (04/20), LSC TLC (04/20), OGT (04/20), brewster(04/20-), ETT (04/20), left frontal EVD (04/20) De-escalate Antibiotics: N/A ?? Code Status - Full Code ?? Dispo - ICU //////////////////////////////////////////////////////////////////////////////// //// Attestation: IS PATIENT CRITICALLY ILL ? Is there a high potential of sudden, clinically significant, or life threatening deterioration? YES Is there a need for direct personal assessment and management to treat/prevent multiple vital organfailure/deterioration? YES If this patient is not critically ill, the reason for continued hospitalization is n/a. PATIENT IS CRITICALLY ILL WITH THESE DIAGNOSES BEING MANAGED BY [facility] TEAM: Intracerebral hemorrhage Intraventricular hemorrhage Altered mental status Alcohol abuse Intubated for airway protection I personally performed 31 minutes of aggregate critical care time exclusive of procedures and teaching. This includes time spent during direct patient evaluation and reassessment, interpreting diagnostic tests, directing life and/or organ supporting interventions and documentation on the unit. * Stormy Oliver, RN - 04/22/2020 10:50 AM EDT TR Band: Applied at: 1051 Balloon volume: 7cc * Casey Quintanilla RCP - 04/22/2020 9:41 AM EDT Respiratory Mechanical Ventilation Note AMV with SBT, production shift supervisor reported past SBT. Vent settings: Mode: Pressure Support/CPAP PS Above PEEP (cm H2O): 10 Set PEEP (cm H2O): 5 Set FiO2: 30 % Vent Measurements: Tidal Volume Measured Exp.: 609 Mean Airway Pressure (cm H2O): 7.9 Minute Ventilation Total Exhaled (L/min): 7.1 Resp: 16 SpO2: 100 % Airway: 7.5 mm ETT, cm @ 26 Teeth/Gum. OETT was secure in place with no observed oral facial break down. Lung sounds: Diminished Secretions: None noted. Assessment: Upon exam this AM pt was awake and reactive to cares. Pt had the above noted OETT in place. Pt had good bilateral chest rise with diminished breath sounds and no observed work of breathing. Pt maintained well t/o the afternoon. Pt had no ventilatory changes t/o the shift. Pt had a procedure preformed under sedation later this AM. Pt returned from procedure sedated, pt was transitionedto VC for the early afternoon. Pt was then transitioned to PSV, pt tolerated transport to CT later this afternoon well. Plan: Maintain current vent settings. Respiratory Pager# [phone] * Storym Oliver RN - 04/22/2020 9:38 AM EDT [facility] Name: OLLIE Ceja HORTENCIA GUTIERRES. Date of : 1960 AGE: 60 y.o. [address]: [address] [place] [address] [address] [place] [address] (home) Mobile: No relevant phone numbers on file. Referring Provider: Unknown REASON FOR VISIT: Order Questions Answers Is the patient on anticoagulant / anitplatelet therapy ? No Reason for exam and clinical history: spontaneous IPH, access for vascular lesion (DSA only) Does patient require sedation? GA No Known Allergies Pertinent PMH: Patient Active Problem List Diagnosis Code ??? Intraventricular hemorrhage I61.5 Date/Procedure Meds given/comments 04/22/20: Cerebral Angiogram ICU and ANES Laboratory Results: Lab Results Component Value Date INR 1.1 04/21/2020 Lab Results Component Value Date CREATININE 0.54 (L) 04/22/2020 Lab Results Component Value Date K 3.3 (L) 04/22/2020 Lab Results Component Value Date PLATELET 129 (L) 04/22/2020 * Anat Ibarra RCP - 04/22/2020 4:21 AM EDT AMV Protocol: Yes SBT Protocol: Yes SBT: Passed Vent Settings: Ventilator Mode: PS/CPAP PEEP Set: 5 FiO2: 30 % PSV: (S) 10 Ventilator Measurements: Resp: 18 Vt Spontaneous: 700 Ve: 13.5 SpO2: 100 % EtCO2: 39 mmHg Airway: 7.5 @ 26 cm at the Teeth. Skin Integrity: WDL Breath Sounds: Rhonchi clears with suctioning Secretions: Thick cloudy Assessment / Events / Plan of the Day: Stable overnight on PSV - Oral ETT secured with anchorfast. Ambu bag by bed. Large amounts of secretions suctioned early in the shift. Small amounts noted during third assessment. SBT done - passing results, no issues to report. Continue vent support with goalof extubation. Anat Ibarra RCP * Lisa Mckay APRN - 04/22/2020 1:12 AM EDT NEUROSURGERY PROGRESS NOTE ID: Ollie Burnett Sr. is a 60 y.o. male with spontaneous R BG IPH with IVH leading to hydrocephalus s/p L EVD placement. INTERVAL Hx: -MRI completed -RHYS overnight; neurologically stable MEDICATIONS: Scheduled Meds: ??? potassium phosphate 15 mmol Intravenous Once ??? multivitamin with minerals 1 tablet Oral Daily ??? thiamine 100 mg Intravenous Daily ??? folic acid 1 mg Intravenous Daily ??? shift total and Settings verification 1 each Intravenous 2 Times Daily - Shift Total ??? sodium chloride 0.9 % (flush) 5 mL Intravenous BID ??? senna-docusate 2 tablet Oral BID ??? chlorhexidine 15 mL Oral BID ??? famotidine 20 mg Intravenous 2 times per day ??? levETIRAcetam 500 mg Intravenous 2 times per day Continuous Infusions: ??? tube feeding diet Stopped (04/22/20327) ??? fentaNYL 75 mcg/hr (04/22/20 0600) ??? niCARdipine 5 mg/hr (04/22/20 0225) ??? sodium chloride 0.9% 75 mL/hr (04/22/20 0039) ??? propofoL Stopped (04/22/20 0545) PRN: sodium chloride 0.9 % (flush), 5-20 mL, Q1 Min PRN lidocaine, 0.3 mL, Once PRN labetalol, 10-20 mg, Q15 Min PRN enalaprilat, 1.25 mg, Q6H PRN magnesium hydroxide, 10 mL, Nightly PRN bisacodyL, 10 mg, Daily PRN acetaminophen, 975 mg, Q6H PRN Or acetaminophen, 975 mg, Q6H PRN Or acetaminophen, 975 mg, Q6H PRN potassium chloride in water, 20 mEq, Q1H PRN Or potassium chloride in water, 20 mEq, Q1H PRN Or potassium chloride in water, 20 mEq, Q1H PRN fentaNYL (PF), 25 mcg, Q30 Min PRN polyethylene glycol (MIRALAX)oral powder, 17 g, Daily PRN EXAM: Temp: [36.4 ??C (97.5 ??F)-37.2 ??C (99 ??F)] Heart Rate: [69-103] Resp: [11-24] BP: (147)/(54) SpO2: [97 %-100 %] Heart Rate from SpO2: [69 bpm-103 bpm] I/O: Intake/Output Summary (Last 24 hours) at 04/22/2020 0736 Last data filed at 04/22/2020 0600 Gross per 24 hour Intake 4049.59 ml Output 1298 ml Net 2751.59 ml Drains: L frontal EVD @ 10 cm H2O, output = 253 cc x 24h ICPs 4-17 NEURO: Intubated, off sedation Eyes open to voice PERRL +Corneals +Cough MOTOR: RUE: thumbs up to command LUE: thumbs up to command RLE: wiggles toes to command LLE: wiggles toes to command LABS: Recent Labs 04/22/204904/21/209904/20/20 1820 WBC 7.7 8.4 5.3 HGB 11.9* 14.0 12.5* PLATELET 129* 147 133* Recent Labs 04/22/204904/21/209904/20/20 1820 NA 138 141 138 K 3.3* 4.1 4.1 CL 103 105 104 CO2 24 22 21* BUN 10 9* 10 CREATININE 0.54* 0.54* 0.51* Recent Labs 04/21/209904/20/20 1820 PT 12.9* 14.3* INR 1.1 1.2 IMAGING: MRI brain 04/21 IMPRESSION Right basal ganglia parenchymal hemorrhage with intraventricular extension and ventricular enlargement. No evidence of underlying parenchymal enhancing mass. Assessment: This is a 60 y.o. male with R BG IPH with IVH leading to hydrocephalus s/p L EVD placement. Neuro improving. Will need formal DSA for further workup. Problem List: R BG IPH with IVH Hydrocephalus Plan: -Q1 neuro checks -SBP<160 -EVD open at 10 cm H2O, monitor output -ICP monitoring hourly. Call Neurosurgery for ICP>20mmHg for >15mins without stimulation -SCDs for DVT ppx, hold AP/AC -Stroke neurology consult -Keppra 500 mg BID for seizure ppx -VEEG and AEDs per NCCU -DSA pending; please hold tube feeds -Extubate as able per ICU For questions please call NSGY pager [phone] Lisa Mckay, PITCH FILLER 04/22/2020 7:36 AM Clinical Documentation Improvement: Active Hospital Problems Diagnosis ??? Intraventricular hemorrhage Resolved Hospital Problems No resolved problems to display. * Casey Quintanilla RCP - 04/21/2020 11:06 AM EDT Respiratory Mechanical Ventilation Note AMV protocol with SBT. Vent settings: Mode: Volume Control Tidal Volume Set: 510 Resp. Rate Set: 15 Set PEEP (cm H2O): 5 Set FiO2: 30 % VT/K Vent Measurements: Peak Inspiratory Pressure: 21 Tidal Volume Measured Exp.: 502 Resp: 16 Mean Airway Pressure (cm H2O): 7.9 Minute Ventilation Total Exhaled (L/min): 7.6 Plateau Pressure (cm H2O): 12 PEEP Total (cmH2O): 6 cmH20 Airway: 8 mm ETT, 26 cm @ teeth/gum. OETT was secure in place with no observed oral facial break down. Lung sounds: Clear Secretions: None noted. Assessment: Upon exam this AM pt was minimally responsive to cares. Pt had the above noted OETT in place. Pt had good bilateral chest rise with clear breath sounds t/o. Pt was on the above noted ventsettings. Pt lydia transport to MRI well no events observed. Pt was transitioned to PSV 10/5 post MRI transportpt lydia PS well t/o the afternoon. Plan: Transition to PSV. Respiratory Pager# [phone] * Rashida Felix MD - 04/21/2020 10:41 AM EDT ICU PROGRESS NOTE DOA: 04/20/2020 Room: [facility] Length of Stay: 1 ICU Length of Stay 12h Ollie Burnett Sr. ( ) is a 60 y.o. male with a past medical history of ETOH abuse andhemochromatosis presenting to [facility] today with spontaneous ICH. Per [facility] communication, he was last known normal around 1400 today and was found down by after reportedly snorting Ritalin. He was reportedly brought to OSH unresponsive but initially maintaining airway. Initial vital signs: 159/65, HR 81, RR 18, 100% on NRB mask, afebrile. Per chart review, he had a poor neuro exam and was subsequently intubated. Of note, he reportedly has an old contusion on his forehead about 1 week old per family. ?? Intracranial imaging revealed right caudate ICH with massive intraventricular extension and casted right lateral, 3rd, and 4th ventricles. Emergent EVD was placed in ED. He was then admitted to the Neurocritical Care team for close neurologic monitoring. Patient was rapid-tested for COVID in ED prior to admission to the unit and was noted to be negative. 24hr events: EVD placed, 15 L boluses for euvolemia, not requiring nicardipine Medications: Scheduled Meds: ??? multivitamin with minerals 1 tablet Oral Daily ??? thiamine 100 mg Intravenous Daily ??? folic acid 1 mg Intravenous Daily ??? sodium chloride 0.9 % (flush) 5 mL Intravenous BID ??? senna-docusate 2 tablet Oral BID ??? chlorhexidine 15 mL Oral BID ??? famotidine 20 mg Intravenous 2 times per day ??? levETIRAcetam 500 mg Intravenous 2 times per day Continuous Infusions: ??? niCARdipine Stopped (04/21/20 0904) ??? sodium chloride 0.9% 100 mL/hr (04/21/20 0855) ??? propofoL Stopped (04/21/20 0400) PRN Meds:.sodium chloride 0.9 % (flush), lidocaine, labetalol, enalaprilat, magnesium hydroxide, bisacodyL, acetaminophen OR acetaminophen OR acetaminophen, potassium chloride in water ORpotassium chloride in water OR potassium chloride in water, fentaNYL (PF), polyethylene glycol ( MIRALAX)oral powder Vitals: Temp: [36.4 ??C (97.5 ??F)-37.3 ??C (99.1 ??F)] Heart Rate: [72-89] Resp: [12-19] BP: (94-137)/(51-72) SpO2: [99 %-100 %] Heart Rate from SpO2: [72 bpm-94 bpm] Ventilator Settings: Physical Exam: Intubated, no sedation Cardiac: RRR Pulm: CTAB, no W/R/R GI: S/NT/ND, BS+ MSK: WWP, no C/C/E Neuro Exam: MS: Awake, CN: PERRL, Motor: Normal bulk and tone throughout RUE FC LUE withdraws ?FC RLE FC LLE withdraws I/Os: Intake/Output Summary (Last 24 hours) at 04/21/2020 1042 Last data filed at 04/21/2020 1000 Gross per 24 hour Intake 2553 ml Output 2952 ml Net -399 ml Labs: Last 3 wbc, hgb, hct plt Recent Labs 04/21/20 0100 04/20/20 1820 WBC 8.4 5.3 HGB 14.0 12.5* HCT 39.9* 36.5* PLATELET 147 133* Last 3 LFTs Recent Labs 04/21/20 0100 04/20/20 1820 AST 102* 107* ALT 110* 105* ALKPHOS 62 53 BILITOT 0.5 0.7 BILIDIR 0.2 0.3 Last Ca, Mg, Phos Recent Labs 04/21/20 0100 CALCIUM 8.1* PHOS 3.9 Imaging/Studies: CT/CTA Assessment/Plan: Neuro - - Keppra BID - Q1 neurochecks - EVD open at 10 - MRI Brain ordered - eeg in place, no seizure - MVT, thiamine, folate - stroke consult - Continue high intensity statin - PT/OT/IMPREGNATOR - Analgesia: prn acetaminophen - Home meds: none CV - - BP parameters as above - labetalol, hydralazine or Cardene infusion for SBP > 140 - if MAP sustained < 65, IVF, consider pressors - TTE ordered Pulm - - VC 30%, PEEP 5 RR16 TV 510 - SBBT to PS today - Goal PaO2 > 60, paCO2 35-45, O2 sats > 92% - VAP precautions GI - - TF today, hold at 0400 for extubation tomorrow - maintain bowel reg - GI ppx with H2B FEN/ - - maintain euvolemia, I=O - Goal Na 135-145, K > 4, Mg > 1 - ICU potassium repletion protocol - d/c brewster Heme - - goal Hgb > 7, INR < 1.5, Platelets > 50k - SCDs - known hemachromatosis Endo - - goal glucose 120-180 --> ISS ID - - for temp > 101F --> UA, CXR, blood cx, sputum cx - tylenol PRN - covid negative Core: Code status: full Lines: PIV x 2, L rad A-lilnne, L SCL Tubes: ETT 8-0 26 teeth Drains: condom cath Glu: SSI Positioning: HOB>30 YES Mouth care ordered YES GI ppx: H2B DVT ppx: SQH Skin integrity: Intact Family communication: PT/OT: Dispo - ICU //////////////////////////////////////////////////////////////////////////////// //// Attestation: critically ill, requiring vent wean and SBP monitoring for IVH, EVD monitoring IS PATIENT CRITICALLY ILL ? Is there a high potential of sudden, clinically significant, or life threatening deterioration? YES Is there a need for direct personal assessment and management to treat/prevent multiple vital organfailure/deterioration? YES If this patient is not critically ill, the reason for continued hospitalization is n/a. PATIENT IS CRITICALLY ILL WITH THESE DIAGNOSES BEING MANAGED BY CCS TEAM: IVH Respiratory failure I personally performed 50 minutes of aggregate critical care time exclusive of procedures and teaching. This includes time spent during direct patient evaluation and reassessment, interpreting diagnostic tests, directing life and/or organ supporting interventions and documentation on the unit. Rashida Felix MD 04/21/2020 10:42 AM * Lillian Cervantes MD - 04/21/2020 8:10 AM EDT NEUROSURGERY PROGRESS NOTE ID: Ollie Burnett SrTony is a 60 y.o. male with spontaneous R BG IPH with IVH leading to hydrocephalous s/p L EVD placement. INTERVAL Hx: -VEEG started -Repeat CTH completed -NAEON MEDICATIONS: Scheduled Meds: ??? multivitamin with minerals 1 tablet Oral Daily ??? thiamine 100 mg Intravenous Daily ??? folic acid 1 mg Intravenous Daily ??? sodium chloride 0.9 % (flush) 5 mL Intravenous BID ??? senna-docusate 2 tablet Oral BID ??? chlorhexidine 15 mL Oral BID ??? famotidine 20 mg Intravenous 2 times per day ??? levETIRAcetam 500 mg Intravenous 2 times per day Continuous Infusions: ??? niCARdipine 2.5 mg/hr (04/21/20 8998) ??? sodium chloride 0.9% 100 mL/hr (04/21/20 9277) ??? propofoL Stopped (04/21/20 0400) PRN: sodium chloride 0.9 % (flush), 5-20 mL, Q1 Min PRN lidocaine, 0.3 mL, Once PRN labetalol, 10-20 mg, Q15 Min PRN enalaprilat, 1.25 mg, Q6H PRN magnesium hydroxide, 10 mL, Nightly PRN bisacodyL, 10 mg, Daily PRN acetaminophen, 975 mg, Q6H PRN Or acetaminophen, 975 mg, Q6H PRN Or acetaminophen, 975 mg, Q6H PRN potassium chloride in water, 20 mEq, Q1H PRN Or potassium chloride in water, 20 mEq, Q1H PRN Or potassium chloride in water, 20 mEq, Q1H PRN fentaNYL (PF), 25 mcg, Q30 Min PRN polyethylene glycol (MIRALAX)oral powder, 17 g, Daily PRN EXAM: Temp: [36.4 ??C (97.5 ??F)-37.3 ??C (99.1 ??F)] Heart Rate: [72-89] Resp: [12-19] BP: (94-137)/(51-72) SpO2: [99 %-100 %] Heart Rate from SpO2: [72 bpm-94 bpm] I/O: Intake/Output Summary (Last 24 hours) at 04/21/2020 0814 Last data filed at 04/21/2020 0754 Gross per 24 hour Intake 1984 ml Output 2714 ml Net -730 ml Drains: L frontal EVD output = 102 cc ICPs 5-9 NEURO: Intubated, off sedation Eyes closed, frown to stim PERRL +Corneals +Cough MOTOR: RUE: squeezes and let go LUE: squeezes and let go RLE: follows commands (wiggles toes) LLE: follows commands (wiggles toes) LABS: Recent Labs 04/21/20 0100 04/20/20 1820 WBC 8.4 5.3 HGB 14.0 12.5* PLATELET 147 133* Recent Labs 04/21/20 0100 04/20/20 1820 NA 141 138 K 4.1 4.1 CL 105 104 CO2 22 21* BUN 9* 10 CREATININE 0.54* 0.51* Recent Labs 04/21/20 0100 04/20/20 1820 PT 12.9* 14.3* INR 1.1 1.2 IMAGING: [facility] 04/21 IMPRESSION 1. New left frontal approach ventriculostomy terminating near the foramen of Aguilar, with mildly decreased LEFT ventricular caliber. 2. Right caudate head hemorrhage with extensive intraventricular extension redemonstrated, with mildly decreased midline shift. Assessment: 60 y.o. male with R BG IPH with IVH leading to hydrocephalous s/p L EVD placement. Problem List: R BG IPH with IVH [place] Plan: -q1 neuro checks -SBP<140 -EVD open at 10cm -SCDs for DVT ppx, hold AP/AC -Stroke neurology consult -VEEG and AEDs per NCCU -MRI brain w/wo For question please call NSGY pager [phone] LILLIAN CERVANTES MD 04/21/2020 8:14 AM Clinical Documentation Improvement: Active Hospital Problems Diagnosis ??? Intraventricular hemorrhage Resolved Hospital Problems No resolved problems to display. Associated attestation - Jana Trinh MD - 04/21/2020 10:18 AM EDT I saw and examined the patient independently. I agree with Dr. Cervantes's assessment and plan. Mr Batista is improved neurologically with EVD placement. He is following commands x 4, not yet opening eyes. Plan for MRI/MRA and DSA for work-up. We will keep EVD @ 10 cm H20 for now. Appreciate neurology help with VEEG. * Parish Garcia - 04/21/2020 12:55 AM EDT PRELIM EEG: Mild generalized slowing slightly more on Left. No epileptiform abnormalities or seizures seen. CORRECTION: Generalized slowing only. No asymmetry seen. Jayjay Garcia MD * Prateek Kevin RT - 04/21/2020 12:04 AM EDT AMV Protocol: Yes SBT Protocol: Yes Vent Settings: Ventilator Mode: VC Tidal Volume Set: (S) 510 Resp Rate Set: 14 PEEP Set: 5 FiO2: (S) 50 % Ventilator Measurements: Resp: 14 Vt Exhaled: 510 PIP: 15 MAP: 8 Plateau Press: 12 Ve: 7.1 PEEP: 5 cmH20 SpO2: 100 % EtCO2: 37 mmHg Airway: 8.0 @ 23 cm at the Teeth. Skin Integrity: WDL Breath Sounds: Diminished Secretions: N/A Assessment / Events: Received patient in VCV 500/x12/+5/100%, patient has ongoing AMS and does not follow commands. 2204: CT trip occurred without complication 2228: Patient transferred to ICU Plan: Continue to support patient within AMV protocol. RT Ciera * Beronica Veloz, SCREENER AND BLENDER OPERATOR - 04/20/2020 11:56 PM EDT AMV Protocol: Yes SBT Protocol: Yes SBT: Not performed/Excluded: Unable to wean or do SBT do to sedation and ventilation requirements. Vent Settings: Ventilator Mode: VC Tidal Volume Set: (S) 510 Resp Rate Set: 14 PEEP Set: 5 FiO2: (S) 50 % Ventilator Measurements: Resp: 14 Vt Exhaled: 510 PIP: 15 MAP: 8 Plateau Press: 12 Ve: 7.1 PEEP: 5 cmH20 SpO2: 100 % EtCO2: 37 mmHg Airway: 8.0 @ 26 cm at the Teeth. Skin Integrity: WDL Breath Sounds: Secretions: Assessment / Events / Plan of the Day: Patient received from ED on VCV 14 Vt 500 +7 90% (23:10) VT changed to 510 (8 cc/kg) PEEP to decreased to 5 and FIO2 decreased to 50% PEER SPECIALIST/RN aware. ETT tube advanced from 23 to 26 @ teeth post CXR's (01:00) AB.34 39 226 21 (01:06) Post ABG RR increased to 16 and FIO2 decreased to 40% RN/PEER SPECIALIST aware. Unable to tolerate sedation wean do to agitation and biting ET tube. Cough reflex intact. Left on VCV do to sedation needs and ventilation requirements. (04:15) Patient went to CT scan tolerated well without event. Current vent settings: VC 16 Vt 510 FIO2 40% PEEP + 5 Plan to titrate sedation and manage within AMV protocol. Plan for MRI during day. BERONICA VELOZ RRT * Petty Sharp RCP - 04/20/2020 6:24 PM EDT Vent Settings: Ventilator Mode: VC Tidal Volume Set: 500 Resp Rate Set: 12 PEEP Set: 5 FiO2: 100 % Ventilator Measurements: Resp: 12 Vt Exhaled: 501 PIP: 18 MAP: 8 Plateau Press: Ve: 6 PEEP: SpO2: 100 % EtCO2: 15 mmHg Airway: 8.0 @ 23 cm at the Teeth. Skin Integrity: WDL Breath Sounds: Clear Assessment / Events / Plan of the Day: Pt brought in from OSH intubated, sedated and placed on above settings. Will continue to monitor closely. PETTY SHARP RCP documented in this encounter H&P Notes * Jacob Wilson PA - 04/20/2020 10:59 PM EDT NEUROCRITICAL CARE HISTORY & PHYSICAL Date of Admission: 04/20/2020 5:24 PM HPI: Ollie Burnett Sr. is a 60 y.o. male with a past medical history of ETOH abuse and hemochromatosis presenting to [facility] today with spontaneous ICH. Per Transfer Center communication, he was last known normal around 1400 today and was found down by after reportedly snorting Ritalin. He was reportedly brought to OSH unresponsive but initially maintaining airway. Initial vital signs: 159/65, HR 81, RR 18, 100% on NRB mask, afebrile. Per chart review, he had a poor neuro exam and was subsequently intubated. Of note, he reportedly has an old contusion onhis forehead about 1 week old per family. Intracranial imaging revealed right caudate ICH with massive intraventricular extension and casted right lateral, 3rd, and 4th ventricles. Emergent EVD was placed in ED. He was then admitted to the Neurocritical Care team for close neurologic monitoring. Patient was rapid-tested for COVID in ED prior to admission to the unit and was noted to be negative. ROS: Unable to obtain d/t patient intubated and sedated. Please see HPI for pertinent positive. No past medical history on file. No past surgical history on file. Social History Tobacco Use ??? Smoking status: Not on file Substance Use Topics ??? Alcohol use: Not on file Medications Prior to Admission Medication Sig Dispense Refill Last Dose ??? hydroCODone-acetaminophen (VICODIN) 5-500 mg per tablet 1-2 Tablet(s), PO, Q8H ??? acetaminophen (TYLENOL) 325 mg tablet 325m-2 Tablet(s), PO, Q4-6H,PRN ??? silver sulfADIAZINE (SILVADENE) 1 % cream 1 Appl(s), Top, BID Vital Sign Ranges: Last value Range last 24 hrs Temperature Temp: 36.6 ??C (97.9 ??F) Temp: [36.4 ??C (97.5 ??F)-36.6 ??C (97.9 ??F)] Heart Rate Heart Rate: 77 Heart Rate: [72-83] Blood Pressure BP: 112/67 BP: (94-137)/(51-72) Respiratory Rate Resp: 14 Resp: [12-17] SpO2 SpO2: 100 % SpO2: [99 %-100 %] Art BP BP (Arterial Line): 134/74 BP (Arterial Line): (111-143)/(64-75) Lines/Drains/Airways: Labs: Recent Results (from the past 24 hour(s)) COVID-19 PCR Result Value Ref Range Rapid SARS-CoV-2 RNA Not Detected Not Detected SARS-CoV-2 Source PEER SPECIALIST Swab Urinalysis with reflex Culture Result Value Ref Range Glucose UA Negative Negative mg/dL Protein UA Negative Negative mg/dL Bilirubin UA Negative Negative mg/dL Urobilinogen UA Normal Normal mg/dL pH UA 5.5 5.0 - 8.0 Blood UA Large (A) Negative mg/dL Ketones UA 40 (A) Negative mg/dL Nitrite UA Negative Negative Leukocytes UA Negative Negative mcL Appearance UA Clear Clear Spec [place] UA >=1.030 (A) 1.006 - 1.030 Color UA Yellow Yellow Culture Reflexed No Urinalysis Microscopic Exam Result Value Ref Range RBC UA 48 (H) 0 - 3 /HPF WBC UA 1 0 - 3 /HPF Squam Epith UA 1 <=4 /HPF BLOOD GAS 2 VENOUS Result Value Ref Range pH Michael 7.29 (CRIT) 7.32 - 7.42 pCO2 Michael 47 41 - 51 mmHg pO2 Michael 129 (H) 25 - 40 mmHg HCO3 Michael 22.1 mmol/L BE Michael -4.5 mmol/L Hgb Blood Gas 13.4 (L) 13.7 - 16.5 gm/dL O2HB Michael 96.6 % COHB Michael 1.0 % METHB Michael 0.3 <=1.5 % Na Whole Blood 134 (L) 135 - 145 mmol/L K Whole Blood 4.0 3.5 - 5.0 mmol/L ICa Whole Blood 1.10 (L) 1.15 - 1.33 mmol/L CL Whole Blood 107 98 - 107 mmol/L Gluc Whole Bld 86 65 - 199 mg/dL Lactate WB 1.2 0.5 - 2.2 mmol/L BGas Source Venous Rapid Drug Screen, Urine (TIM Request) Result Value Ref Range TIM Conf Requested No TIM Requested See Comment Rapid Drug Screen w/o Confirmation, Urine Result Value Ref Range U Barbiturates Screen None Detected None Detected U Benzodiazepines Screen Presumptive Pos (A) None Detected U Cocaine Screen None Detected None Detected U Methadone Metabolites Screen None Detected None Detected U Opiate Screen None Detected None Detected U Cannabinoid Screen Presumptive Pos (A) None Detected U Oxycodone Screen Presumptive Pos (A) None Detected U Buprenorphine Screen None Detected None Detected U Fentanyl Screen Presumptive Pos (A) None Detected U Tricyclics Screen None Detected None Detected U Ethanol Screen None Detected None Detected U Amphetamines Screen None Detected None Detected U Adulterants Screen None Detected None Detected Basic Metabolic Panel (non-fasting) Result Value Ref Range Glucose Lvl 92 65 - 199 mg/dL BUN 10 10 - 20 mg/dL Creatinine 0.51 (L) 0.80 - 1.50 mg/dL Sodium 138 135 - 145 mmol/L Potassium 4.1 3.5 - 5.0 mmol/L Chloride 104 98 - 107 mmol/L CO2 21 (L) 22 - 31 mmol/L Anion Gap 13 5 - 15 mmol/L Calcium 7.4 (L) 8.5 - 10.5 mg/dL eGFR 116 >=60 mL/min/1.73 m?? eGFR 134 >=60 mL/min/1.73 m?? Magnesium Result Value Ref Range Magnesium 0.77 0.69 - 1.07 mmol/L Phosphorus Result Value Ref Range Phosphorus 3.3 2.5 - 4.5 mg/dL Prothrombin Time Result Value Ref Range PT 14.3 (H) 9.4 - 12.5 sec INR 1.2 APTT Result Value Ref Range PTT 28 25 - 37 sec Hepatic Function Panel Result Value Ref Range Total Protein 5.8 (L) 6.1 - 8.0 gm/dL Albumin 3.3 3.2 - 5.2 gm/dL AST 107 (H) 0 - 39 unit/L ALT 105 (H) 0 - 55 unit/L Alk Phos 53 40 - 130 unit/L Total Bilirubin 0.7 0.2 - 1.3 mg/dL Bili, Direct 0.3 0.0 - 0.3 mg/dL ABO/Rh Typing Result Value Ref Range ABORh Type AB Pos Antibody screen Result Value Ref Range Ab Screen Interp Negative Expires at 2359 on: 04/23/2020 Hemogram Result Value Ref Range WBC 5.3 4.0 - 9.5 x10(3)/mcL RBC 3.70 (L) 4.58 - 5.54 x10(6)/mcL Hemoglobin 12.5 (L) 13.7 - 16.5 gm/dL Hematocrit 36.5 (L) 40.5 - 48.5 % MCV 98.6 (H) 82.9 - 93.1 fL MCH 33.8 (H) 27.5 - 32.1 pg MCHC 34.2 32.0 - 35.7 gm/dL Platelets 133 (L) 145 - 357 x10(3)/mcL RDWSD 45.1 (H) 36.0 - 45.0 fL RDWCV 12.5 11.4 - 13.8 % MPV 9.2 7.6 - 12.9 fL nRBC % Auto 0.0 % nRBC Abs Auto 0.000 0.000 - 0.000 x10(3)/mcL Differential, Automated Result Value Ref Range Neutrophils % 75.8 % Neutr Abs (ANC) 4.01 1.70 - 6.10 x10(3)/mcL Lymphocytes % 18.9 % Lymphocytes Abs 1.0 0.9 - 3.2 x10(3)/mcL Monocytes % 4.7 % Monocyte Abs 0.2 (L) 0.3 - 0.9 x10(3)/mcL Eosinophils % 0.0 % Eosinophils Abs 0.0 0.0 - 0.4 x10(3)/mcL Basophils % 0.2 % Basophils Abs 0.0 0.0 - 0.1 x10(3)/mcL Immature Gran % 0.40 % Fide Gran Abs 0.02 0.00 - 0.04 x10(3)/mcL Gold Tube HOLD Result Value Ref Range Gold Hold Sample in lab. Lee Tube Hold Result Value Ref Range Lee Hold Sample in lab. ABORH Recheck Status Result Value Ref Range ABORH Type Recheck Completed POCT Glucose Result Value Ref Range POC Glucose 87 65 - 199 mg/dL Imaging: EXAMINATION: CT HEAD WO CONTRAST And CT ANGIOGRAM [place] 04/20/2020 ?? CLINICAL HISTORY: Altered mental status ?? COMPARISON: Outside institution head CT 04/20/2020 at 1522 hours ?? FINDINGS: HEAD CT: ?? There is a 1.5 cm high attenuation intraparenchymal hemorrhage involving the right caudate head (axial series 2 image 22) with intraventricular extension of hemorrhage. There is extensive high attenuation blood products within the right lateral ventricle, crossing the foramen of [place]ro into the inferior left lateral ventricle with dependently layering blood products in the posterior ventricles. Blood products are present within the dilated third ventricle, cerebral aqueduct and fourth ventricle. The overall volume of intraparenchymal and intraventricular blood products is unchanged when compared to the earlier examination allowing for redistribution within the ventricular system. ?? Unchanged ventriculomegaly. There is low-attenuation within the periventricular white matter, concerning for transependymal CSF flow in the setting of hydrocephalus. Basal cisterns are patent. ?? Orbits are unremarkable. Endotracheal and enteric tube are present. Mucosal thickening of the anterior ethmoid sinuses. There are retained secretions within the posterior nasopharynx and oropharynx. Multiple sites of dental caries and advanced endodontal disease involving maxillary and mandibular teeth. Mastoid air cells are clear. No suspicious osseous lesions. No calvarial fracture. There is a 6 mm exophytic nodule within the left face (axial series 4 image 21). There is a 7 mm rounded nodule within the posterior superficial left parotid gland (axial series 3 image 17). ?? CT ANGIOGRAM OF THE [place]: ?? Mild narrowing of the bilateral cavernous ICAs due to atherosclerotic disease. Normal anterior cerebral arteries. Normal anterior communicating artery. Normal right and left middle cerebral arteries. Left posterior communicating artery is patent. The right posterior communicating artery is diminutive but patent. Normal posterior cerebral arteries. Normal basilar artery. Small caliber of the intradural vertebral arteries which are patent. ?? No aneurysm. No evidence of arteriovenous malformation in the region of hemorrhage. ?? IMPRESSION Head CT: 1. Right caudate intraparenchymal hemorrhage with intraventricular extension of blood products. 2. Supratentorial hydrocephalus and transependymal CSF flow. 3. Advanced dental caries and endodontal disease. ?? CT angiogram of the [place]: 1. No aneurysm or evidence of AVM. 2. No large vessel occlusion. EKG: No results found for this or any previous visit. Physical Exam: Physical Exam Vitals signs and nursing note reviewed. Constitutional: Appearance: Normal appearance. He is well-developed. Interventions: He is sedated and intubated. HENT: Head: Normocephalic. Eyes: General: Gaze aligned appropriately. Neck: Musculoskeletal: Neck supple. Cardiovascular: Rate and Rhythm: Normal rate and regular rhythm. Heart sounds: Normal heart sounds. Pulmonary: Effort: Pulmonary effort is normal. He is intubated. Breath sounds: Normal breath sounds. Abdominal: General: Abdomen is flat. Bowel sounds are decreased. Palpations: Abdomen is soft. Genitourinary: Comments: Brewster catheter in place Skin: General: Skin is warm and dry. Neurological: Mental Status: He is unresponsive. GCS: GCS eye subscore is 1. GCS verbal subscore is 1. GCS motor subscore is 4. Motor: Abnormal muscle tone present. Comments: Exam off sedation: Intubated PERRL, conjugate gaze Not following commands No attempt to localize BUE Withdraws x4 to noxious stim (weaker LUE) Strong spontaneous cough DH NIH STROKE SCALE ASSESSMENT & PLAN: Ollie Burnett Sr. is a 60 y.o. male presenting with spontaneous right caudate ICH with intraventricular extension in the setting of substance abuse (snorting Ritalin). ICH score III (GCS, IVH) # Neuro- > spontaneous ICH/IVH > ETOH/substance abuse: UDS + cannabinoids, bupenorphrine, and oxycodone - q1h neuro checks, VS - HOB > 30 deg - EVD open at [id number], trend ICP/CPP - obtain STAT NCHCT for any change in neuro status - if unclear etiology of ICH, plan for MRI brain w&wo - Anticipate formal angio to r/o vascular etiology: CTA COW negative. - Poor exam and increased tone with eyelid tremors: place on cEEG and continue keppra 500mg BID (patient was given 1Gm Keppra in ED) - MVI, thiamine, and folate given substance abuse # CV - - obtain baseline EKG - SBP goal < 160 - labetalol, hydralazine for SBP > 160 - if frequent use of PRNs, start nicardipine gtt - Check Troponin: if elevated trend q6h or until down trends # Pulm - - Intubated for airway protection - goal O2 sats > 92%: wean vent support and work towards SBT - chest PT/pulm toileting - IS at bedside # GI - - NPO diet (Hold Meds) - maintain bowel reg - GI ppx: pepcid IVP while intubated - consult Nutrition for TF recs # FEN/ - - maintain euvolemia, - avoid hypotonic fluids - Goal Na 135-145, K > 4, Mg > 1 - ICU potassium repletion protocol - NS while NPO # Heme - - goal Hgb > 7, INR < 1.5, Platelets > 100k - Hemachromatosis: daily CBC, check iron level - DVT ppx: SCDs - hold SQH until PBD #2 # Endo - - goal glucose 120-180 --> ISS PRN # ID - - for temp > 38.4 C --> UA, CXR, blood cx, sputum cx - tylenol PRN - Rapid COVID test: negative # ICU Bundle Feeding: NPO diet (Hold Meds) Analgesia: PRN fentanyl/ tylenol Sedation: Propofol Thromboprophylaxis: SCDs HOB > 30 degrees Ulcer prophylaxis: Pepcid Glycemic Control: goal glucose 120-180, ISS SBT: If able Bowel Reg: RBO Indwelling Catheters/Lines/Tubes: ETT, PIV, Brewster, left SC TLC, Radial A-Line De-escalate Antibiotics: N/A Code Status - Full Code Dispo - ICU //////////////////////////////////////////////////////////////////////////////// //// Attestation: IS PATIENT CRITICALLY ILL ? Is there a high potential of sudden, clinically significant, or life threatening deterioration? YES Is there a need for direct personal assessment and management to treat/prevent multiple vital organfailure/deterioration? YES If this patient is not critically ill, the reason for continued hospitalization is n/a. PATIENT IS CRITICALLY ILL WITH THESE DIAGNOSES BEING MANAGED BY CCS TEAM: Spontaneous ICH with intraventricular extension Hydrocephalus requiring EVD placement Ventilator management HTN I personally performed 40 minutes of aggregate critical care time exclusive of procedures and teaching. This includes time spent during direct patient evaluation and reassessment, interpreting diagnostic tests, directing life and/or organ supporting interventions and documentation on the unit. EMBER Ramon 04/20/2020 NCCU Team Pager #[phone] Associated attestation - Rashida Felix MD - 05/08/2020 11:22 AM EDT I have examined and evaluated this patient and agree with the note as written. * Obey Moreno MD - 04/20/2020 6:23 PM EDT Neurosurgery H&P / Consultation CC/Mechanism of Injury: IVH s/p snorting Ritalin Neurosurgery Attending: Flynn MORRISON: Asked by Raul Krishnan MD to see Ollie Ceja Hortencia Gutierres., a 60 y.o. male with PMH significant for EtOHabuse. Patient seen in transfer from OSH. Patient was found down earlier today. Per reports has a h/o EtOHabuse but may have stopped drinking. He may be snorting Ritalin. Intubated at OSH. GCS 3T on arrival. Taken to CT. No family available. Medical History: No past medical history on file. Surgical History: No past surgical history on file. Medications: (Not in a hospital admission) Allergies: No Known Allergies Family History: No family history on file. Social History: Social History Tobacco Use ??? Smoking status: Not on file Substance Use Topics ??? Alcohol use: Not on file ??? Drug use: Not on file Review of Systems: Physical Exam: Vital Signs: Patient Vitals for the past 24 hrs: Temp Pulse Resp BP SpO2 04/20/20 1725 -- -- 12 -- -- 04/20/20 1800 36.4 ??C (97.5 ??F) -- 12 -- -- 04/20/20 1815 -- 72 12 137/72 100 % BMI: GEN:NAD NEURO: Intubated on minimal sedation PERRL. MOTOR: No response to noxious Labs: No results for input(s): NA, K, CL, CO2, BUN, CREATININE, GLUCOSE in the last 72 hours. No results for input(s): WBC, HGB, PLATELET in the last 72 hours. No results for input(s): PT, INR in the last 72 hours. No results for input(s): AST, ALT, BILITOT, ALKPHOS, ALB, PROT, LIPASE, AMYLASE in the last 72 hours. Radiology: Head CT 04/20/2020: Compared to OSH CT from same date. Right lateral, third, and fourth vent IVH with obstruction and hydrocephalus. No evidence of vascular malformation on CTA. Films personally reviewed / reviewed with radiologist Impression: Ollie Burnett Sr. is a 60 y.o. male with IVH He has a poor neurological exam likely due to his hydrocephalus. There is strong indication for EVD placement for hydro management. No familyor POA available at listed number. Not treating hydrocephalus could be fatal. EVD will be placed due to medical necessity without consent. Problem List: IVH Respiratory failure Plan: - EVD placement - NCCU admission - Neuro checks: q1h - Seizure prophylaxis: Keppra 1g IV load; 500mg BID maintenance - DSA when able - goal SBP < 160 - anti-HTN: hydralazine, labetalol, nicardipine gtt PRN Discussed with Dr. Trinh. There are no hospital problems to display for this patient. Obey Moreno MD 04/20/2020 Associated attestation - Jana Trinh MD - 04/21/2020 10:35 AM EDT I have seen and examined the patient, providing weiss components as outlined below. I have reviewed the resident???s note; my evaluation of the patient is below: 60 y.o. gentleman with history of etoh abuse, ? Ritalin use presents after being found down with right basal ganglia hemorrhage and extensive IVH. His ventricles are large and there is evidence of transependymal flow. On exam, he is intubated, unresponsive, but has intact brainstem reflexes. We will admit for EVD placement, close neuro monitoring and further work-up with CTA, MRI and possible angiogram. His family was unable to be reached for consent so we will proceed with CSF diversion due tomedical necessity. documented in this encounter Procedure Notes * Melissa Cohen MD - 05/03/2020 4:50 PM EDTProcedure(s): LUMBAR PUNCTURE Neurology Procedure Note: Date: 05/03/20 Patient: Ollie Burnett Sr. : 1960 Procedure: lumbar puncture (diagnostic) Indications: Fevers Risk and benefits were explained to the patient and consent was obtained. Time out was preformed Patient was positioned on his left side in a position and then upright. The skin was prepped with iodine and draped in sterile fashion. 3cc lidocaine were used to numb the skin and insertion site. A 20-g 3.5 spinal needle was inserted into the space between L4 and L5. multiple attempts was made. Opening pressure 23 cm H2O was obtained Clear CSF was obtained and sent for cell count, protein, glucose, culture. A total of 15cc spinal fluid was removed. Patient tolerated the procedure well. There were no immediate complications observed. Patient will be monitored for headache. Blood Loss <1cc Melissa Cohen MD Neurology Resident * Thor Marx MD - 05/03/2020 11:58 AM EDTAssociated Order(s): EEG AWAKE, ASLEEP, DROWSY [facility] Department of Neurology Routine Outpatient EEG Report Name of the Patient: Ollie Burnett Sr. Date of : 1960 Date of Service: 05/03/2020 Referring physician: Lu Niño MD Interpreting physician: Thor Marx MD, Deon Presley MD BRIEF HISTORY: Ollie Burnett Sr. is a 60 y.o. year old patient with Right IPH with IVH, who is less responsive today. MEDICATIONS: Current Facility-Administered Medications Medication Dose Route Frequency Provider Last Rate Last Dose ??? nicotine (NICODERM CQ) 21 mg/24 hr patch 21 mg 1 patch Transdermal Daily Lu Niño MD 21 mg at 05/03/20 0850 And ??? nicotine (NICODERM CQ) 21 mg/24 hr patch Patch Verification 1 patch Transdermal BID Lu Niño MD And ??? nicotine (NICODERM CQ) 21 mg/24 hr patch Patch Removal 1 patch Transdermal Daily Lu Niño MD ??? enoxaparin (LOVENOX) injection 40 mg 40 mg Subcutaneous QPM Lu Niño MD 40 mg at 05/02/20 1637 ??? free water bolus 200 mL 200 mL Per NG tube 4 Times Daily Lu Niño MD 200 mL at 05/03/20 0900 ??? amLODIPine (Norvasc) tablet 10 mg 10 mg Per NG tube Daily Jana Oneill PITCH FILLER 10 mg at 05/03/20 0850 ??? folic acid (Folvite) tablet 1,000 mcg 1 mg Per NG tube Daily Jana Oneill PITCH FILLER 1,000 mcg at 05/03/20 0850 ??? lisinopriL (Prinivil;Zestril) tablet 40 mg 40 mg Per NG tube Daily Jana Oneill PITCH FILLER 40 mg at 05/03/20 0850 ??? modafiniL (Provigil) tablet 100 mg 100 mg Per NG tube BID Jana Oneill PITCH FILLER 100 mg at 05/03/20 1149 ??? propranolol (Inderal) (4 mg/mL) oral liquid 40 mg 40 mg Per NG tube Q8H JOSE Jana Oneill PITCH FILLER 40 mg at 05/03/20 0530 ??? thiamine (Vitamin B1) tablet 100 mg 100 mg Per NG tube Daily Jana Oneill PITCH FILLER 100 mg at 05/03/20 0850 ??? tube feeding diet 1,080 mL Per NG tube Continuous Lynnette Khan PITCH FILLER 45 mL/hr at 139 1,080 mL at 05/02/20 2139 ??? famotidine (Pepcid) tablet 40 mg 40 mg Per NG tube Daily Lu Niño MD 40 mg at 05/03/20 0850 ??? albuteroL 90 mcg/actuation inhaler 2 puff 2 puff Inhalation Q6H PRN Lu Niño MD ??? multivitamin with minerals (THERA-M) tablet 1 tablet 1 tablet Oral Daily Lu Niño MD 1 tablet at 05/03/20 0850 ??? labetalol (NORMODYNE,TRANDATE) injection 10-20 mg 10-20 mg Intravenous Q15 Min PRN Lu Niño MD 10 mg at 05/01/202201 METHODS: A 21 channel digitized electroencephalogram [place] [facility] [place] The 10/20 international system of electrode placement was used and bipolar and referential electrode montages were recorded. In addition to EEG the patient was monitored for EKG and lateral/vertical eye movements. Video was recorded during the session. The duration of the recording was 73 minutes. DIE CUTTER DIAMOND'S REPORT: Performed by: CM Patient was not sleep deprived. Patient's mental state during recording was stable. Sleep was not attained. Photic stimulation was not performed. Hyperventilation was not performed. Effort was n/a Movement and other artifact was not significant Comments: ELECTROENCEPHALOGRAPHER'S REPORT: Background The background was a mixture of delta, beta, and to a lesser extent, theta and alpha. There was a very mild asymmetry with somewhat lower frequencies seen on the right hemisphere. There was moderate anterior-posterior gradient. Sleep Stage II sleep was not obtained. Hyperventilation Hyperventilation was not performed. Photic Stimulation Photic stimulation was not performed. Abnormal EEG Activity Occasional sharp waves at T4, rare sharp waves at T3. EKG EKG revealed normal sinus rhythm. PRIOR EEG: No previous EEG reports were available. INTERPRETATION: This EEG is abnormal due to right greater than left sharp waves, as well as diffuse slowing, more pronounced in the right hemisphere. CLINICAL CORRELATION: This EEG demonstrates focal cerebral dysfunction in the right hemisphere, with a cortical irritability and propensity for seizures in this region, consistent with known intraparenchymal hemorrhage location. There is also a diffuse cerebral dysfunction of non-specific etiology. No seizures seen. Neurology Attending I have personally reviewed the EEG, and I agree with the details as written. The above report was formulated in discussion with me at the time of EEG reading, and I agree with it as documented. Thor Marx MD [place] [address] Pager: [phone], #[phone] Email: [email or web address] [facility] Deon Presley MD Clinical Neurophysiology Fellow Pager: [phone] 05/03/2020 * Thor Marx MD - 04/23/2020 10:53 AM EDT [facility] Department of Neurology Critical Care Continuous EEG Report Patient: Ollie Burnett Sr., [id number] Date: 04/23/20 Start Time: 04/22 07:38 End Time: 04/23 07:38 Fellow: Jayjay Garcia MD Attending: Thor Marx MD History: 60 yo M with right intraparenchymal hemorrhage with intraventricular extension. EEG to evaluate for seizures. Methods: A 21 channel digitized electroencephalogram was performed in the Neurologic Critical Care Unit by the [facility] Clinical Neurophysiology Laboratory. The 10/20 international system of electrode placement was used and bipolar and referential electrode montages were recorded. Video was recorded during the session. Background Symmetry Mild asymmetry (<50% amplitude, 0.5-1/s freq.) Continuity Continuous Breach Present Absent PDR Present 6-7Hz Background EEG Frequency Theta AP Gradient Present Present Variability Present Reactivity Present Voltage Normal Stage II Sleep Transients Absent Periodic/Rhythmic Patterns No Sporadic Epileptiform Discharges Prevalence Rare (<1/h) T4 sharp waves seen Interpretation Abnormal EEG due to the presence of: 1. Continuous generalized arrhythmic theta slowing, R>L. 2. Rare sharp waves seen on right (T4). 3. Sharply contoured theta discharges seen in left temporal lobe. Event of left arm stiffness around 3.30pm. No abnormal EEG correlate seen but shortly after leads were also taken off as patient was taken for head imaging. Clinical Correlation EEG suggestive of bi-temporal irritability which could raise risk of seizures and diffuse non-specific encephalopathy, with focal dysfunction on right in keeping with underlying structural abnormality. Overall, improvement in EEG since previous day. Parish Garcia MD [employer] Fellow #[phone] Neurology Attending I have personally reviewed the EEG, and I agree with the details as written. The above report was formulated in discussion with me at the time of EEG reading, and I agree with it as documented. Thor Marx MD Department [place] [address] Pager: [phone], #[phone] Email: [email or web address] [place] * Thor Marx MD - 04/22/2020 11:11 AM EDT [facility] Department of Neurology Critical Care Continuous EEG Report Patient: Ollie Burnett Sr., [id number] Date: 04/22/20 Start Time: 04/21 07:38 End Time: 04/22 07:38 Fellow: Jayjay Garcia MD Attending: Thor Marx MD History: 60 yo M with right intraparenchymal hemorrhage with intraventricular extension. EEG to evaluate for seizures. Methods: A 21 channel digitized electroencephalogram was performed in the Neurologic Critical Care Unit by the [facility] Clinical Neurophysiology Laboratory. The 10/20 international system of electrode placement was used and bipolar and referential electrode montages were recorded. Video was recorded during the session. Background Symmetry Mild asymmetry (<50% amplitude, 0.5-1/s freq.) Continuity Continuous Breach Present Absent PDR Present 6-7Hz Background EEG Frequency Theta AP Gradient Present Present Variability Present Reactivity Present Voltage Normal Stage II Sleep Transients Absent Periodic/Rhythmic Patterns No Sporadic Epileptiform Discharges Prevalence Rare (<1/h) T4 sharp waves seen Interpretation Abnormal EEG due to the presence of: 1. Continuous generalized arrhythmic theta slowing, R>L. 2. Rare sharp waves seen on right (T4). 3. Sharply contoured theta discharges seen in left temporal lobe. Clinical Correlation EEG suggestive of bi-temporal irritability which could raise risk of seizures. Overall, diffuse non-specific encephalopathy, with focal dysfunction on right in keeping with underlying structural abnormality. Parish Garcia MD [employer] Fellow #[phone] Neurology Attending I have personally reviewed the EEG, and I agree with the details as written. The above report was formulated in discussion with me at the time of EEG reading, and I agree with it as documented. Thor Marx MD [place] [address] Pager: [phone], #[phone] Email: [email or web address] [place] * Parish Garcia - 04/21/2020 11:26 AM EDT [facility] Department of Neurology Critical Care Continuous EEG Report Patient: Ollie Burnett ., [id number] Date: 04/21/20 Start Time: 04/21 00:39 End Time: 04/21 07:38 Fellow: Jayjay Garcia MD Attending: Sussy Lomeli MD History: 60 yo M with right intraparenchymal hemorrhage with intraventricular extension. EEG to evaluate for seizures. Methods: A 21 channel digitized electroencephalogram was performed in the Neurologic Critical Care Unit by the [facility] Clinical Neurophysiology Laboratory. The 10/20 international system of electrode placement was used and bipolar and referential electrode montages were recorded. Video was recorded during the session. Background Symmetry Symmetric Continuity Continuous Breach Present Absent PDR Present 6-7Hz Background EEG Frequency Theta AP Gradient Present Present Variability Present Reactivity Present Voltage Normal Stage II Sleep Transients Absent Periodic/Rhythmic Patterns No Sporadic Epileptiform Discharges Prevalence Rare (<1/h) T4 sharp waves seen Interpretation Abnormal EEG due to the presence of: 1. Continuous generalized arrhythmic theta slowing. 2. Rare sharp waves seen on right (T4). Clinical Correlation EEG suggestive of focal irritability on right keeping with underlying structural abnormality which could raise risk of seizures. Overall, diffuse non specific encephalopathy seen. Parish Garcia MD Associated attestation - Sussy Lomeli MD - 04/22/2020 4:20 PM EDT Epilepsy Attending I was the attending physician supervising the fellow in the above care. The videoEEG was reviewed in detail by me together with the fellow. I agree with above report. Sussy Lomeli MD Professor of Neurology [facility] Epilepsy [place] * Obey Moreno MD - 04/20/2020 7:34 PM EDTProcedure(s): TWIST DRILL HOLE, IMPLANT VENTRICULAR OR ICP MONITOR. CATH. Pre-Procedure Diagnose(s): Intraventricular hemorrhage Post-Procedure Diagnose(s): Intraventricular hemorrhage NEUROSURGERY PROCEDURE NOTE DATE OF PROCEDURE: 04/20/2020 ATTENDING SURGEON(S): Flynn RESIDENT SURGEON(S): Obey Moreno MD PREOPERATIVE DIAGNOSIS: IVH POSTOPERATIVE DIAGNOSIS: Same NAME OF OPERATION/PROCEDURE: Twist drill bur hole for placement of ventriculostomy on the left ANESTHESIA: Local anesthetic with lidocaine and epinephrine INDICATIONS FOR PROCEDURE: After multiple attempts to reach family at listed number there was no answer. Due the life threatening nature of the patient's condition it was decided to proceed under medical necessity without consent. Risks included but are not limited to infection, bleeding, CSF leak, injury to surrounding structures, weakness, paralysis, pain, scar, failure to improve symptoms, need for further surgery, coma, and . OPERATIVE FINDINGS: 1. Successful placement of ventricular catheter 2. 1 pass(es) DESCRIPTION OF PROCEDURE: After informed consent was obtained, patient's head was positioned in supine position. Hair around the area of of interest was clipped with electric clippers on the left side. Kocker's point was thenidentified and marked with a marking pen. Formal time out was completed. Preoperative antibiotics were given. Patient was prepped and draped in the usual sterile fashion. After skin was infiltrated with local anesthetic agent, a #15 blade was used to make a skin incision. Periosteum was further dissected with the back of the 15 blade. Twist drill was then used to make the bur hole craniotomy at Kocker's point. Bone chips were then removed with Adson's. Surgical cavity was irrigated with saline.The meninges were then incised with a sharp end of the trocar. Ventriculostomy catheter was then inserted to the depth of 6 centimeters. When the stylette was removed fluid was noted from the distal end of the ventricular catheter. The catheter was then tunneled in the posterior lateral direction. It was secured in place with 3-0 nylon suture. The incision was closed with skin natalya. The ventricular catheter was secured to the scalp with skin natalya. Drapes were removed. Scalp was cleaned with Ray-Rosalie sponge. Sterile dressing consisting of ointment and Tegaderm was applied. This marked andthe procedure. ESTIMATED BLOOD LOSS: Minimal COMPLICATIONS: None SPECIMENS: None IMPLANTS: Medtronic Leonid ventricular catheter INSTRUMENT COUNT: All instrument counts were correct at the end of the procedure. documented in this encounter ED Notes * Vivek Rascon RN - 04/20/2020 9:58 PM EDT Contents of EVD collection vessel have NOT been emptied since EVD was placed. Contents reflect total collection since EVD was placed. * Vivek Rascon RN - 04/20/2020 9:54 PM EDT Pt to CT 3. * Vivek Rascon RN - 04/20/2020 9:07 PM EDT Pt to ED 23 via EMS as hospital transfer from [facility]. Pt reportedly in normal state of health earliertoday. found pt down and unresponsive ~[address] at OSH shows large right sided ICH. Pt may have been snorting ritalin prior to being found down. Also positive for ETOH. Currently intubated, sedated on propofol at 50 mcg/kg/min. 65 mg mannitol infused. 1 gm keppra infused. Left radial a-line placed. Left sub-clavicular central placed. EVD placed. Vitals WDL. Family members at pt bedside. See RT note for vent settings. * Vivek Rascon RN - 04/20/2020 8:45 PM EDT 2 pt family members to visit pt. * Raul Krishnan MD - 04/20/2020 6:14 PM EDT Patient Name: Ollie Burnett Sr. Patient Age: 60 y.o. Birthdate: 1960 Admit date: 04/20/2020 Attending Physician: Raul Krishnan MD ED ATTENDING ATTESTATION NOTE The patient was seen in conjunction with Dr. Paz, the resident physician. I have independentlyperformed the weiss portions of the history and physical exam. I have reviewed all diagnostic studiespersonally including CT scan showing an IVH. Brief Summary: 60-year-old male sent from an outside hospital with an intraventricular hemorrhage. Intubated prior to transport and currently sedated on a propofol drip. Is hemodynamically stable with some movement of upper and lower extremities as well as spontaneous eye opening. ET tube in place.Pupils reactive bilateral. Bilateral breath sounds. Regular Cardiac exam. No evidence of trauma. Neurosurgery at the bedside. Mannitol given; going for CT/CTA followed by EVD and admission to the ICU. Raul Krishnan MD 04/20/20 1815 Raul Krishnan MD 04/22/20 1211 * Kike Horton MD - 04/20/2020 5:36 PM EDT Ollie Burnett Sr. is an 60 y.o. male who presents to the ED with: Chief Complaint Patient presents with ??? Hospital Transfer ??? Altered Mental Status found down at home HPI Ollie Burnett Sr. is a 60 y.o. male who presents to the Emergency Department in transfer after presenting to outside hospital for altered mental status. He was found to have a very large intraventricular hemorrhage, and was intubated for airway protection. He received 1 g of IV Keppra. He was intubated at outside hospital utilizing succinyl choline and etomidate without difficulty, with first-pass success. He was started on propofol for postintubation sedation. According to [facility], prior to transfer the patient was noted to move all 4 extremities spontaneously, and did have a cough and a gag reflex. Upon arrival, the patient was intubated, sedated on propofol. He did have a notable cough, and gag upon arrival. He was spontaneously moving his right upper extremity, bilateral lower extremities. Nomovement was noted of the left upper extremity however he was sedated utilizing propofol. Review of Systems: Review of Systems Unable to perform ROS: Intubated Patient Vitals for the past 8 hrs: BP Temp Temp src Pulse Resp SpO2 Height Weight 04/20/20 2310 -- -- -- -- 14 100 % -- -- 04/20/20 2300 -- -- -- 75 14 100 % 168 cm (5' 6.14) -- 04/20/200 -- -- -- 77 14 100 % -- -- 04/20/202114 112/67 -- -- 77 14 100 % -- -- 04/20/202101 -- -- -- -- -- -- -- 62.6 kg (138 lb) 04/20/202099 112/64 -- -- 75 14 100 % -- -- 04/20/202044 108/62 36.6 ??C (97.9 ??F) -- 76 14 100 % -- -- 04/20/202029 94/60 -- -- 77 14 100 % -- -- 04/20/202014 114/60 -- -- 78 14 100 % -- -- 04/20/201999 122/68 -- -- 79 14 100 % -- -- 04/20/20 194 106/61 -- -- 78 14 100 % -- -- 04/20/201932 -- -- -- -- 14 100 % -- -- 04/20/201929 101/55 -- -- 78 14 100 % -- -- 04/20/20 1915 110/51 -- -- 78 14 100 % -- -- 04/20/20 1900 121/54 -- -- 83 14 99 % -- -- 04/20/20 1845 124/55 -- -- 83 14 100 % -- -- 04/20/20 1830 133/62 -- -- 82 17 100 % -- -- 04/20/20 1815 137/72 -- -- 72 12 100 % -- -- 04/20/20 1800 -- 36.4 ??C (97.5 ??F) Axillary -- 12 -- -- -- 04/20/20 1725 -- -- -- -- 12 -- -- -- I have reviewed the vital signs, which demonstrates patient is hemodynamically stable, afebrile, saturating well on the ventilator and oxygen. Physical Exam: Physical Exam Vitals signs and nursing note reviewed. Constitutional: Comments: Patient intubated, sedated. HENT: Head: Normocephalic. Right Ear: External ear normal. Left Ear: External ear normal. Nose: Nose normal. Mouth/Throat: Mouth: Mucous membranes are moist. Eyes: General: No scleral icterus. Right eye: No discharge. Left eye: No discharge. Conjunctiva/sclera: Conjunctivae normal. Pupils: Pupils are equal, round, and reactive to light. Neck: Comments: Trachea midline Cardiovascular: Rate and Rhythm: Normal rate and regular rhythm. Pulses: Normal pulses. Comments: Radial, DP pulses 2+, symmetrical bilaterally. Pulmonary: Comments: Symmetrical breath sounds. Ventilator breath sounds. Abdominal: General: There is no distension. Palpations: Abdomen is soft. Musculoskeletal: General: No signs of injury. Right lower leg: No edema. Left lower leg: No edema. Skin: General: Skin is warm and dry. Capillary Refill: Capillary refill takes less than 2 seconds. Neurological: Comments: Pupils 3 mm, 2 mm, equal and reactive, round. Withdrawal to painful stimuli of right upper extremity, right lower extremity, left lower extremity. No withdrawal noted to left upper extremity sedation. Cough, gag noted. ED Course: - Patient was evaluated and discussed with Dr. Krishnan. - Medications, allergies, past medical history, surgical history, family history, and social history were reviewed ED Course as of Apr 21 10 Sat April 20, 2020 1833 Family contact attempted for procedural consent. Unable to contact family. Central venous and Arterial Lines will be placed for medical necessity. Medications niCARdipine 0.2 mg/mL (standard Adult and Pedi greater than 20 kg) infusion (0 mg/hr Intravenous Stopped 04/20/201899) fentaNYL (PF) 50 mcg/mL injection ( Not Given 04/20/20 185) sodium chloride 0.9 % (flush) flush 5 mL (5 mLs Intravenous Given 04/20/202354) sodium chloride 0.9 % (flush) flush 5-20 mL (has no administration in time range) lidocaine (XYLOCAINE) 10 mg/mL (1 %) injection 3 mg (has no administration in time range) labetalol (NORMODYNE,TRANDATE) injection 10-20 mg (has no administration in time range) enalaprilat (VASOTEC) injection (has no administration in time range) niCARdipine 0.2 mg/mL (standard Adult and Pedi greater than 20 kg) infusion (has no administration in time range) senna-docusate (Pericolace) 8.6-50 mg per tablet 2 tablet (2 tablets Oral Given 04/20/202354) magnesium hydroxide (Milk of Magnesia) (240 mg/mL) oral liquid 10 mL (has no administration in timerange) bisacodyL (Dulcolax) suppository 10 mg (has no administration in time range) acetaminophen (Tylenol) tablet 975 mg (has no administration in time range) Or acetaminophen (Tylenol) (32.02 mg/mL) oral liquid 975 mg (has no administration in time range) Or acetaminophen (Tylenol) suppository 975 mg (has no administration in time range) sodium chloride 0.9% infusion (100 mL/hr Intravenous Rate/Dose Change 04/20/202299) chlorhexidine (PERIDEX) 0.12 % oral solution 15 mL (15 mLs Oral Given 04/20/202354) propofol (DIPRIVAN) infusion (30 mcg/kg/min ?? 62.6 kg Intravenous Rate/Dose Change 04/20/202353) potassium chloride 20 mEq in 100 mL (has no administration in time range) Or potassium chloride 20 mEq in 100 mL (has no administration in time range) Or potassium chloride 20 mEq in 100 mL (has no administration in time range) fentaNYL (PF) 50mcg/mL injection (has no administration in time range) polyethylene glycoL (Miralax) packet 17 g (has no administration in time range) famotidine (PEPCID) injection 20 mg (20 mg Intravenous Given 04/20/202354) levETIRAcetam (KEPPRA) 500 mg in sodium chloride 0.82% 100 mL (500 mg Intravenous New Bag 5/30/20 2355) iohexoL (OMNIPAQUE) 350 mg/mL solution 0-200 mL (65 mLs Intravenous Given 04/20/20 1743) ceFAZolin (Ancef) 2g in dextrose 5% 100 mL (2 g Intravenous Given 04/20/20 1804) mannitol (50 grams and over) 100 g/500 mL (20%) infusion (65 g Intravenous New Bag 04/20/20 181) levETIRAcetam (KEPPRA) 1,000 mg in sodium chloride (ISO-OSM) 100 mL (1,000 mg Intravenous Given 04/20/201939) propofol (DIPRIVAN) 10 mg/mL bolus injection (Sedation) (3.1 mg Intravenous Given 04/20/202121) - I performed the following procedure(s): adult medical resuscitation. Assessment and Plan: MDM: 60 y.o. male who presents for altered mental status, intraventricular hemorrhage. Neurosurgerywas consulted in patient's care upon arrival. At the request, the patient was started on 1 g of mannitol per kilogram. Estimated weight of 65 kg was utilized for sedation as well as mannitol dosing. Subclavian central access as well as arterial line was placed, and the patient was started on nicardipine for blood pressure control. IVD was placed by neurosurgery in the emergency department. He will be admitted to the ICU post IVD placement. Central access, arterial line, IVDU was placed in the emergency department. The patient was startedon nicardipine drip to maintain blood pressure control. Additionally, he received mannitol, and Keppra as well as Ancef. He remained stable in the emergency department will be admitted to the ICU with neurosurgery. Assessment:60 y.o. male with intraventricular hemorrhage Plan: - Admit to ICU with neurosurgery for further evaluation and treatment. Kike Paz MD Resident 04/21/20 0010 Associated attestation - Raul Krishnan MD - 04/22/2020 12:11 PM EDT I have discussed the details of the case with Dr. Paz and agree with the assessment and plan as described in the resident note above unless noted otherwise below. documented in this encounter Miscellaneous Notes * Plan of Care - Scarlett Krishnan, RN - 05/10/2020 3:43 AM EDT Problem: Patient Care Overview Goal: Plan of Care Review Outcome: Ongoing (Interventions Implemented as Appropriate) 05/09/20 1312 05/09/201999 Coping/Psychosocial Plan Of Care Reviewed With -- patient Plan of Care Review Progress improving -- OUTCOME EVALUATION NOTE: ?? OUTCOME SUMMARY: Pt is alert and oriented to self, place and time occasionally. VSS. Pt denied pain at beginning of shift, when RN attempted to reposition pt, he complained stating ow indicating knees but would notgive a number, nonverbal scale used. When reassessed, pt stated no pain. Incontinence care providedas needed. Receiving scheduled Zosyn. Encouraged fluid intake when in room, pt would take sips of boost. Safety maintained. Pt was cooperative with staff. Will continue to monitor. ?? PLAN MOVING FORWARD: Continue to work with PT/OT, encourage fluid/nutrition intake, discharge planning ?? INDIVIDUALIZED FALL PREVENTION INTERVENTIONS: ?? Patient-specific fall risk factors per assessment: generalized weakness, IV abx infusing, hospital environment/equipment, mechanical lift, confusion ?? Assistance: 2 assist, Mechanical Lift ?? Supervision: Hands on ?? Surveillance: Bed locked in low position, call burnett within reach, purposeful hourly rounding, clutter free environment, bed alarm on ?? Patient-specific fall prevention interventions for sensory deficits provided: N/A ?? CPG GOAL OUTCOME EVALUATION:? Continue care plan as documented. Goal: Individualization & Mutuality Outcome: Ongoing (Interventions Implemented as Appropriate) 04/22/20 0742 05/08/20 1502 Mutuality/Individual Preferences What Anxieties, Fears or Concerns Do You Have About Your Health or Care? -- nothing What Questions Do You Have About Your Health or Care? -- do we know how I'm doing? What Information Would Help Us Give You More Personalized Care? ANTHONY -- Goal: Fall Prevention-Safe Patient Handling Outcome: Ongoing (Interventions Implemented as Appropriate) 05/08/20 0800 05/09/20199905/10/20 0200 Matias Fall Risk History of Falling -- 25 -- Secondary Diagnosis -- 15 -- Ambulatory Aids -- 0 -- Intravenous Therapy/Heparin/Saline Lock -- 20 -- Gait/Transferring -- 0 -- Mental Status -- 15 -- Score -- 75 -- OTHER Matias Fall Risk -- High -- Restraint Interventions Safety Promotion/Fall Prevention -- -- activity supervised;nonskid shoes/slippers when out of bed;safety round/check completed Positioning Body Position -- -- supine Daily Care Interventions Self-Care Promotion BADL personal objects within reach;meal setup provided -- -- Activity Activity Type -- activity adjusted per tolerance -- Activity Assistance Provided -- assistance, 2 people -- Assistive Device Utilized -- mechanical lift -- Goal: Infection Control Outcome: Ongoing (Interventions Implemented as Appropriate) 05/09/20199905/10/20 0200 Safety Interventions Isolation Precautions -- standard precautions maintained Infection Prevention -- environmental surveillance performed;single patient room provided Coping Strategies Supportive Measures active listening utilized;decision-making supported;positive reinforcement provided;self-care encouraged;verbalization of feelings encouraged -- Goal: Discharge Needs Assessment Outcome: Ongoing (Interventions Implemented as Appropriate) 04/22/20 0741 04/24/20 0249 04/28/20 1552 Discharge Needs Assessment Concerns To Be Addressed -- adjustment to diagnosis/illness concerns;basic needs concerns;cognitive/perceptual concerns;compliance issue concerns;coping/stress concerns;decision making concerns;discharge planning concerns;employment/school concerns;financial/insurance concerns;home safety concerns;medication concerns -- Readmission Within The Last 30 Days -- no previous admission in last 30 days -- Provider Choice List(s) Given -- yes -- Current Discharge Risk lives alone -- -- Discharge Disposition -- -- still a patient Goal: Interdisciplinary Rounds/Family Conf Outcome: Ongoing (Interventions Implemented as Appropriate) 05/10/20 0321 Interdisciplinary Rounds/Family Conf Participants field nurse case manager;nursing;patient;physical therapy;physician;occupational therapy Problem: Stroke (Hemorrhagic) (Adult) Goal: Signs and Symptoms of Listed Potential Problems Will be Absent, Minimized or Managed (Stroke) Signs and symptoms of listed potential problems will be absent, minimized or managed by discharge/transition of care (reference Stroke (Hemorrhagic) (Adult) CPG). Outcome: Ongoing (Interventions Implemented as Appropriate) 05/06/20 0639 Stroke (Hemorrhagic) Problems Assessed (Stroke (Hemorrhagic)) all Problems Present (Stroke (Hemorrhagic)) bladder/bowel dysfunction;communication impairment;motor/sensory impairment * Plan of Care - Dai Davis RN - 05/09/2020 7:25 PM EDT Problem: Patient Care Overview Goal: Plan of Care Review Problem: Patient Care Overview Goal: Plan of Care Review Outcome: Ongoing (Interventions Implemented as Appropriate) ? 05/08/20 2200 05/09/20 0643 Plan of Care Review Progress -- progress towards functional goals is fair Coping/Psychosocial Plan Of Care Reviewed With patient -- OUTCOME EVALUATION NOTE: ?? OUTCOME SUMMARY: ?? Pt is alert and oriented to person and place. Neuro wax and weens throughtout day. Towards end of sh, patient more alert, awake, able to converse without problem. Patient tolerated more PO intake with both lunch and dinner. Midline pulled out accidentally and new IV placed. VSS see charting. Patient able to have family skype meeting today. Patient still receiving IV zosyn, still tolerating taking pills w food. Incontinent of both stool and urine requiring multiple bed changes throughout day.Otherwise no s/s of distress ?? PLAN MOVING FORWARD: ??Eat more food, more calories, discharge planning INDIVIDUALIZED FALL PREVENTION INTERVENTIONS: ?? Patient-specific fall risk factors per assessment: acute pain, recent surgery, generalized weakness, hospital environment/surgery Assistance: Full assist, 2 person w lift ?? Supervision: Eyes on, Arms reach, Hands on ?? Surveillance: Bed locked in low position, call burnett within reach, purposeful hourly rounding, clutter free environment, bed alarm on ?? Patient-specific fall prevention interventions for sensory deficits provided: No ?? CPG GOAL OUTCOME EVALUATION: ?? Continue care plan as documented. * Plan of Care - Dai Davis RN - 05/09/2020 1:12 PM EDT Problem: Patient Care Overview Goal: Plan of Care Review 05/09/20 1312 Coping/Psychosocial Plan Of Care Reviewed With patient Plan of Care Review Progress improving * Plan of Care - Scarlett Krishnan RN - 05/09/2020 6:32 AM EDT Problem: Patient Care Overview Goal: Plan of Care Review Outcome: Ongoing (Interventions Implemented as Appropriate) 05/06/20 0639 05/08/201999 Coping/Psychosocial Plan Of Care Reviewed With -- patient Plan of Care Review Progress improving -- OUTCOME EVALUATION NOTE: ?? OUTCOME SUMMARY: Pt is alert and oriented to self only last night, VSS. No complaints of pain. Incontinent of urine throughout shift. First Neuro exam pupils were unequal. R pupil was greater than L. MD notified, notconcerned unless unreactive and other changes noted. The other two neuros, pupils were equal. Pt would attempt to scoot to bottom of bed rails stating the need to urinate and was attempting to stand up. Incontinence care, linen change provided as needed. Receiving scheduled Zosyn. Encouraged fluid intake when in room. Safety maintained. Cooperation was intermittent with staff, declining vital with NET APPLICATIONS DEVELOPER then accepting with RN. Will continue to monitor. ?? PLAN MOVING FORWARD: Continue to work with PT/OT, encourage fluid/nutrition intake, discharge planning ?? INDIVIDUALIZED FALL PREVENTION INTERVENTIONS: ?? Patient-specific fall risk factors per assessment: IV abx infusing, hospital environment/equipment,mechanical lift, confusion ?? Assistance: 2 assist, Mechanical Lift ?? Supervision: Hands on ?? Surveillance: Bed locked in low position, call burnett within reach, purposeful hourly rounding, clutter free environment, bed/chair alarm on ?? Patient-specific fall prevention interventions for sensory deficits provided: N/A ?? CPG GOAL OUTCOME EVALUATION: ?? Continue care plan as documented. ?? * Plan of Care - Damien Francis PT - 05/08/2020 3:43 PM EDT Physical Therapy Note Treatment Number PT: 6 Patient profile: Ollie Burnett Sr. is a 60 y.o. right handed male admitted on 04/20/[address] Jana Trinh MD transferred from [facility] ED after being found down with altered MS, Head CT howing IVH and hydrocephalus with poor neurological exam requiring intubation. COVID tested in ED and was negative. Emergent EVD placed for hydrocephalus and admitted to Neuro ICU. 04/22/20 CT angiogram without evidence of aneurysm or AVM. vEEG to evaluate for seizures. MRI complete showing small scattered acute infarct. Social History: Info obtained from chart & SW note as patient non-verbal with ETT on ventilatorday of eval. Lives in [place], [place]. Live in a tiny room @ a boarding home, no stove or refridgerator in his room, shared BR with other tenants @ home. He lives in ground floor room- no stairs. He uses public transport to get to store. Susanna lives in same building and reports he has multiple falls & doesn't always keep up with personal care Precautions/Special Considerations: Lines: L & RUE IV lines Activity Orders: act as tolerated, up with assist Mobility and Positioning Recommendations: ?? Pt can be mechanically lifted bed >< chair. Subjective: pt with hypophonic voice, stating I want to regarding standing up Objective: Patient seen for physical therapy and demonstrated the following: Pain: no c/o's Vital Signs: Stable on RA In chair upon arrival this session ?? Cognition ?? Eyes open during entire session ?? Alert ?? Conversing appropriately but with hypophonic voice today ?? Increase conversation compared to prior session ?? Bed mobility ?? Not performed this session ?? Therex ?? Ankle pumps B ?? Heel slides AAROM on B sides ?? SLR AAROM on B sides ?? Supine hip abd B sides ?? Transfers ?? Pt in chair and brought to the side of the bed with railing up and bed elevated ?? B knee blocks with hand over hand assistance to put both UE's on bed railing ?? Use of momentum and cuing ?? Pt able to stand x3 reps with modAx2 and maintain standing ~60s each time ?? Patient requested urinal and SUPERVISOR [employer]ING able to hold for patient to appropriately urinate ?? Was incontinent of bowel but SUPER[employer] able to assist with clean up ?? Sitting balance ?? With L sided lean sitting on edge of chair but able to maintain with cgA Education: Pt reminded where he is and importance of therapy Assessment: Ollie Burnett Sr. was seen today for physical therapy treatment session for continuation of POC. Patient alert during session with increased conversation. Able to demonstrate ability to perform sit to stands this session with initiation of movement. Would benefit from intensive skilledrehab upon discharge. Pt will benefit from ongoing therapeutic interventions to achieve therapy goals. Discharge Recommendations: Based on the current findings, Anticipated Discharge Disposition: inpatient acute rehabilitation when medically ready for hospital discharge. Consult Recommendations: CM for d/c planning Equipment needs: TBD @ rehab facility; ongoing assessments. Physical Therapy Goals: To be achieved by 06-10-20: ONGOING ?? 1. Pt able to stay alert with eyes open for entire therapy session & follow commands. 2. Pt to demonstrate understanding of self-assist exercises (R side helping L). 3. Pt. to perform bed mobility with min A. 4. Pt able to hold his head up and turn head s><s with cues, scanning both sides, able to track. 5. Pt able to tolerated mechanical lift transfers bed >< chair or tolerate ICU bed-chair position with supports on his L. 6. Pt able to maintain midline sitting balance with R arm to lean on with CGA x 1. 7. Pt able to move sit >< stand with 2 person assist, ^ WB on L side to stimulate return. 8. Pt able to stand-pivot transfer with 2 assist. 9. Pt to propel wheelchair x 20 ft. using any limbs independently and with supervision and verbal cues for steering & scanning L. 10. Pt will tolerate progression towards upright with stable vital signs. Plan: Therapy Frequency: 2-4 times/wk for as outlined in initial evaluation. Patient agrees with plan as stated. Time IN / OUT: 9190-7046 Total Evaluation Minutes, Physical Therapy: 31(PAUL x1; TEF x1) Damien Francis PT Pager: [phone] Physical Therapy Inpatient Rehabilitation Department * Plan of Care - Miguel Mendez, ANNA - 05/08/2020 3:13 PM EDT Problem: Patient Care Overview Goal: Plan of Care Review Outcome: Ongoing (Interventions Implemented as Appropriate) 05/06/20 0639 05/08/20 1000 Coping/Psychosocial Plan Of Care Reviewed With -- patient Plan of Care Review Progress improving -- Goal: Individualization & Mutuality Outcome: Ongoing (Interventions Implemented as Appropriate) 05/08/20 1502 Mutuality/Individual Preferences What Anxieties, Fears or Concerns Do You Have About Your Health or Care? nothing What Questions Do You Have About Your Health or Care? do we know how I'm doing? Goal: Fall Prevention-Safe Patient Handling Outcome: Ongoing (Interventions Implemented as Appropriate) 05/08/20 0805/08/20 1000 05/08/20 1200 Polly Fall Risk History of Falling -- 25 -- Secondary Diagnosis -- 15 -- Ambulatory Aids -- 0 -- Intravenous Therapy/Heparin/Saline Lock -- 20 -- Gait/Transferring -- 20 -- Mental Status -- 15 -- Score -- 95 -- OTHER Matias Fall Risk -- High -- Restraint Interventions Safety Promotion/Fall Prevention -- -- -- Positioning Body Position -- -- -- Daily Care Interventions Self-Care Promotion BADL personal objects within reach;meal setup provided -- -- Activity Activity Type -- -- stand at bedside Activity Assistance Provided -- -- assistance, 2 people Assistive Device Utilized -- -- gait belt 05/08/20 1437 05/08/20 1500 Matias Fall Risk History of Falling -- -- Secondary Diagnosis -- -- Ambulatory Aids -- -- Intravenous Therapy/Heparin/Saline Lock -- -- Gait/Transferring -- -- Mental Status -- -- Score -- -- OTHER Matias Fall Risk -- -- Restraint Interventions Safety Promotion/Fall Prevention -- safety round/check completed;nonskid shoes/slippers when out ofbed;activity supervised Positioning Body Position up in chair -- Daily Care Interventions Self-Care Promotion -- -- Activity Activity Type -- -- Activity Assistance Provided -- -- Assistive Device Utilized -- -- Goal: Infection Control Outcome: Ongoing (Interventions Implemented as Appropriate) 05/08/20 0805/08/20 1500 Safety Interventions Isolation Precautions -- standard precautions maintained Infection Prevention -- environmental surveillance performed Coping Strategies Supportive Measures verbalization of feelings encouraged -- Goal: Discharge Needs Assessment Outcome: Ongoing (Interventions Implemented as Appropriate) 04/22/20 0741 04/24/20 0249 04/28/20 1552 Discharge Needs Assessment Concerns To Be Addressed -- adjustment to diagnosis/illness concerns;basic needs concerns;cognitive/perceptual concerns;compliance issue concerns;coping/stress concerns;decision making concerns;discharge planning concerns;employment/school concerns;financial/insurance concerns;home safety concerns;medication concerns -- Readmission Within The Last 30 Days -- no previous admission in last 30 days -- Provider Choice List(s) Given -- yes -- Current Discharge Risk lives alone -- -- Discharge Disposition -- -- still a patient Goal: Interdisciplinary Rounds/Family Conf Outcome: Ongoing (Interventions Implemented as Appropriate) 04/28/20 1552 Interdisciplinary Rounds/Family Conf Participants patient;nursing;physician OUTCOME EVALUATION NOTE: OUTCOME SUMMARY: Pt is alert and oriented to self, place and intermittently time. VSS. OOB to chair with 2 person assist and mechanical lift. Worked with PT/OT did exercises and sat at the edge of the bed. Incontinence care provided, linens changed, dressed, complete bed bath. Complains of headache pain with tylenol with good effect. Receiving scheduled Zosyn. Pt is much more alert throughout the day compared to yesterday, more engaged in conversation. DHT removed, pt encouraged during meals, drinks a lot of milk/boost. Pt had family zoom meeting today and began to get emotional. Reassurance provided, per team pt medically ready for discharge pending placement in rehab? Safety maintained. Cooperative with staff. Will continue to monitor. PLAN MOVING FORWARD: Discharge planning ongoing Control pain Work with PT/OT Encourage eating, independence with meals, and water intake INDIVIDUALIZED FALL PREVENTION INTERVENTIONS: Patient-specific fall risk factors per assessment: Hospital setting, mechanical lift, IV tubing, moderately impaired Assistance: 2 assist, Mechanical Lift Supervision: Hands on Surveillance: Bed locked in low position, call burnett within reach, purposeful hourly rounding, clutter free environment, bed/chair alarm on, family at bedside Patient-specific fall prevention interventions for sensory deficits provided: N/A CPG GOAL OUTCOME EVALUATION: Continue care plan as documented. * Plan of Care - Kathryn Urban OTA - 05/08/2020 11:47 AM EDT Occupational Therapy Treatment Note Treatment Number OT: 5 Patient Dx: Ollie Burnett Sr. is a 60 y.o. male with R BG IPH with IVH leading to hydrocephalus s/p L EVD placement. DSA 04/22 without aneurysm or vascular malformation. With change in neuro exam postDSA and having been started on phenobarbital for ETOH withdrawal, repeat CT head stable. MRI with tiny scattered acute infarcts does not provide explanation for change in exam. Patient was extubated on 04/26. Precautions/Special Considerations: fall risk, up with assist, activity as tolerated, SBP <160, L hemiplegia Interval History, per MD note 05/08 - SBP 115-150mmHg, HR 60-70s on RA - LFT downtrending, WCC wnl -Last Bowel Movement: 05/08/20 Social History: Patient lives in a boarding home on the ground level with no WILLI. Home Setup: TBD DME: TBD Baseline ADL/Mobility: Pt was unable to provide details regarding social history or prior level of functioning secondary to somnolence. S: I need to pee while I am standing Pt with hypophonic speech, stated upon standing up O: Patient seen for skilled OT treatment, and demonstrated the following: ?? Self-care & Functional Mobility: ?? Pt received in chair working with PT ?? Pt practiced UB stroke exercises while seated, using RUE hand over hand for AAROM of LUE, cues and gestures ?? Pt handed chap stick, able to grasp in LUE, but switched to RUE to apply, pt able to place cap back on holding with LUE ?? Stood 3x from recliner, using bed rail, with mod Ax2, gait belt, good initiation, assist to keepLUE on bed rail. Pt asking to pee while standing, rest breaks required ?? Pt able to urinate while standing after urinal placed ?? Cognition: ?? Behavior / Mood: alert and cooperative ?? Alert and oriented to: person ?? Follows commands: 1 step, requires increased time and requires repetition ?? Attention: distractible, difficulty attending to task/directions and requires cues to redirect ?? Safety awareness: decreased insight into deficits, impulsive and moderate impairment ?? Vision: R inattention, improved ability to track to the Left today ?? Endurance: Decreased activity tolerance ?? Vitals: Stable per Masimo ?? Strength/ROM: L hemiplegia Pain: No complaints of pain. Education: Pt/family/caregiver education ongoing regarding: Role of occupational therapy/rehabilitation, Transfers, ADL, Exercise, Positioning, Safety, Precautions/Protocol, Balance, Recommendations and Discharge planning. Staff Communication: Patient status, treatment, and mobility recommendations discussed with nursing/other staff. ASSESSMENT: Pt was seen for skilled OT treatment to progress plan of care. Pt received in chair agreeable to work with therapy, continues to show increasing levels of alertness and ability to participate. Preformed lite ADL tasks and then sit<>stand with use of bed rail, Mod Ax2, gait belt. Recommend inpatient rehab placement upon discharge for continued skilled therapy to reach functional goals. Pt will benefit from ongoing therapeutic interventions to achieve Pt's and therapy goals. Anticipated Discharge Disposition: inpatient rehabilitation facility Equipment Recommendations: TBD Daily schedule / Staff Recommendations: ?? Utilize upright chair position using bed features or transfer to recliner chair as appropriate with mechanical lift ?? Encourage participation in ADL's by providing verbal cues and physical assist as needed Occupational Therapy Goals: To be achieved by May 24, 2020. Pt will effectively utilize compensatory strategies to achieve orientation x4 with min assist. Pt will maintain attention during simple tasks for >5 minutes with <3 verbal cues. Pt will be able to consistently track/scan to the L to locate items for self care task with <3 verbal cues. Pt will complete 1 grooming task with min assist and min cues. Pt will demonstrate fair seated balance at EOB for participation in self care tasks. Pt will participate in UE strength/ROM/coordination exercises as appropriate for improved participation in daily tasks. Goals in progress Therapy Frequency: 2-4 times/wk Total Evaluation Minutes, Occupational Therapy: 24(2x schm) Pager: [phone] CHRISTOPHER Sanchez Occupational Therapy Rehabilitation Department * Plan of Care - Zahra Panda RN - 05/08/2020 4:25 AM EDT Problem: Patient Care Overview Goal: Plan of Care Review Outcome: Ongoing (Interventions Implemented as Appropriate) 05/06/20 0639 05/07/201944 Coping/Psychosocial Plan Of Care Reviewed With -- patient Plan of Care Review Progress improving -- OUTCOME EVALUATION NOTE: OUTCOME SUMMARY: Patient alert, disoriented to time and situation overnight, no C/O pain, weight shift assistance provided, incontinence care performed, tube feeding resumed overnight (see MAR). No acute events to report, safety maintained. Patient resting comfortably between care. Will continue to monitor. PLAN MOVING FORWARD: Pending rehab placement, Encourage PO intake, DHT removal, weight shift assistance INDIVIDUALIZED FALL PREVENTION INTERVENTIONS: Patient-specific fall risk factors per assessment: Impaired mobility, Safety awareness, hospital environment Assistance: 2 assist, Mechanical Lift, w/ Q2hr turns Supervision: Hands on Surveillance: Bed locked in low position, call burnett within reach, purposeful hourly rounding, clutter free environment, bed/chair alarm on Patient-specific fall prevention interventions for sensory deficits provided: N/A CPG GOAL OUTCOME EVALUATION: Continue care plan as documented. * Plan of Care - Miguel Mendez RN - 05/07/2020 4:14 PM EDT Problem: Patient Care Overview Goal: Plan of Care Review Outcome: Ongoing (Interventions Implemented as Appropriate) 05/06/20 0639 05/07/20 0800 Coping/Psychosocial Plan Of Care Reviewed With -- patient Plan of Care Review Progress improving -- Goal: Individualization & Mutuality Outcome: Ongoing (Interventions Implemented as Appropriate) 04/22/20 0742 05/07/20 1603 Mutuality/Individual Preferences What Anxieties, Fears or Concerns Do You Have About Your Health or Care? ANTHONY -- What Questions Do You Have About Your Health or Care? -- am i getting better? What Information Would Help Us Give You More Personalized Care? ANTHONY -- Goal: Fall Prevention-Safe Patient Handling Outcome: Ongoing (Interventions Implemented as Appropriate) 05/06/20 2130 05/07/20 0800 05/07/20 1200 Matias Fall Risk History of Falling -- 25 -- Secondary Diagnosis -- 15 -- Ambulatory Aids -- 0 -- Intravenous Therapy/Heparin/Saline Lock -- 20 -- Gait/Transferring -- 0 -- Mental Status -- 15 -- Score -- 75 -- OTHER Matias Fall Risk High -- -- Restraint Interventions Safety Promotion/Fall Prevention -- -- -- Positioning Body Position -- -- independent Activity Activity Type -- activity adjusted per tolerance -- Activity Assistance Provided -- assistance, 2 people -- Assistive Device Utilized -- mechanical lift -- 05/07/20 1400 Matias Fall Risk History of Falling -- Secondary Diagnosis -- Ambulatory Aids -- Intravenous Therapy/Heparin/Saline Lock -- Gait/Transferring -- Mental Status -- Score -- OTHER Matias Fall Risk -- Restraint Interventions Safety Promotion/Fall Prevention safety round/check completed;nonskid shoes/slippers when out of bed;activity supervised Positioning Body Position -- Activity Activity Type -- Activity Assistance Provided -- Assistive Device Utilized -- Goal: Infection Control Outcome: Ongoing (Interventions Implemented as Appropriate) 05/07/20 0800 05/07/20 1400 Safety Interventions Isolation Precautions -- standard precautions maintained Infection Prevention -- environmental surveillance performed Coping Strategies Supportive Measures active listening utilized;decision-making supported;goal setting facilitated;positive reinforcement provided;problem solving facilitated;relaxation techniques promoted;self-care encouraged;verbalization of feelings encouraged -- Goal: Discharge Needs Assessment Outcome: Ongoing (Interventions Implemented as Appropriate) 04/22/20 0741 04/24/20 0249 04/28/20 1552 Discharge Needs Assessment Concerns To Be Addressed -- adjustment to diagnosis/illness concerns;basic needs concerns;cognitive/perceptual concerns;compliance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 accomodation. Asked family to call back during the day as visiting hours are [phone] therefore day discharge coordinator would have to make the exception. Also informed family that [employer] would most likely make the final decision. Family seemed satisfied with update and information on visitation and stated she will call later today. PLAN MOVING FORWARD: Continue to monitor Neuro status. Transfer to lower level of care when appropraite Discuss family visitation Have MD call patients daughter Susanna for update INDIVIDUALIZED FALL PREVENTION INTERVENTIONS: Patient-specific fall risk factors per assessment: [current deficits]: Confused. Severe decrease instrength/mobilization. Multiple lines and tubes. Incontinence. Unfamiliar environment. Assistance [level of assistance required for transfers and ambulation]: Total Assist x2 Supervision [direct monitoring required during toileting and ADLs]: Total Assist Surveillance [continuous indirect monitoring]: Garrett Monitor. Bed alarm. Patient-specific fall prevention interventions for sensory deficits provided, if applicable: [X] Yes CPG GOAL OUTCOME EVALUATION: Goal: Fall Prevention-Safe Patient Handling Outcome: Ongoing (Interventions Implemented as Appropriate) 05/03/20199905/05/20 2200 05/06/20 0615 Matias Fall Risk History of Falling -- 25 -- Secondary Diagnosis -- 15 -- Ambulatory Aids -- 0 -- Intravenous Therapy/Heparin/Saline Lock -- 20 -- Gait/Transferring -- 0 -- Mental Status -- 15 -- Score -- 75 -- OTHER Matias Fall Risk -- High -- Restraint Interventions Safety Promotion/Fall Prevention -- -- activity supervised;fall prevention program maintained;nonskid shoes/slippers when out of bed;safety round/check completed Positioning Body Position -- -- side-lying, left;upper extremity elevated, left;with 2- person assist Activity Activity Type -- -- activity adjusted per tolerance;activity encouraged Activity Assistance Provided -- -- assistance, 2 people Assistive Device Utilized mechanical lift -- -- Goal: Infection Control Outcome: Ongoing (Interventions Implemented as Appropriate) 05/05/20 0715 05/06/20 0615 Safety Interventions Isolation Precautions -- standard precautions maintained Infection Prevention -- environmental surveillance performed;rest/sleep promoted;single patient room provided Coping Strategies Supportive Measures positive reinforcement provided -- Goal: Discharge Needs Assessment Outcome: Ongoing (Interventions Implemented as Appropriate) 04/22/20 0741 04/24/20 0249 04/28/20 1552 Discharge Needs Assessment Concerns To Be Addressed -- adjustment to diagnosis/illness concerns;basic needs concerns;cognitive/perceptual concerns;compliance issue concerns;coping/stress concerns;decision making concerns;discharge planning concerns;employment/school concerns;financial/insurance concerns;home safety concerns;medication concerns -- Readmission Within The Last 30 Days -- no previous admission in last 30 days -- Provider Choice List(s) Given -- yes -- Current Discharge Risk lives alone -- -- Discharge Disposition -- -- still a patient Problem: Stroke (Hemorrhagic) (Adult) Goal: Signs and Symptoms of Listed Potential Problems Will be Absent, Minimized or Managed (Stroke) Signs and symptoms of listed potential problems will be absent, minimized or managed by discharge/transition of care (reference Stroke (Hemorrhagic) (Adult) CPG). Outcome: Ongoing (Interventions Implemented as Appropriate) 05/06/20 0639 Stroke (Hemorrhagic) Problems Assessed (Stroke (Hemorrhagic)) all Problems Present (Stroke (Hemorrhagic)) bladder/bowel dysfunction;communication impairment;motor/sensory impairment * Plan of Care - Ector Ramirez RN - 05/05/2020 4:16 PM EDT Problem: Skin Integrity Impairment, Risk/Actual (Adult) Goal: Identify Related Risk Factors and Signs and Symptoms Related risk factors and signs and symptoms are identified upon initiation of Human Response Clinical Practice Guideline (CPG) Outcome: Ongoing (Interventions Implemented as Appropriate) 04/22/20 0742 Skin Integrity Impairment, Risk/Actual Skin Integrity Impairment, Risk/Actual: Related Risk Factors age extremes Signs and Symptoms (Skin Integrity Impairment) edema Goal: Skin Integrity/Wound Healing Patient will demonstrate the desired outcomes by discharge/transition of care. Outcome: Ongoing (Interventions Implemented as Appropriate) 04/22/20 0742 Skin Integrity Impairment, Risk/Actual (Adult) Skin Integrity/Wound Healing making progress toward outcome Problem: Patient Care Overview Goal: Plan of Care Review Outcome: Ongoing (Interventions Implemented as Appropriate) 05/02/20 1726 05/04/201999 Coping/Psychosocial Plan Of Care Reviewed With -- patient Plan of Care Review Progress progress toward functional goals as expected -- OUTCOME EVALUATION NOTE: OUTCOME SUMMARY: Pt. becoming more alert, oriented to self and place, speech still garbled with weakness on the left, mittens to RUE Hand. Breathing spontaneously in room air and maintaining oxygenation. Hemodynamically stable, K 3.2; same replaced, NSR mainatined, IVF D/C, vanc trough taken with same WNL. Condom catheter insitu on free drain, abhishek urine adequate. Skin has scattered bruising. Seen by SPT, DH tube still instiu however TF held, pt tolerating pureed diet. Hygiene needs met. Daughter updated; Casemanager informed about concerns with visitation, same called pt daughter. PLAN MOVING FORWARD: Q2hrly neuros Q2hrly vitals Maintain safety Monitor I/O INDIVIDUALIZED FALL PREVENTION INTERVENTIONS: Patient-specific fall risk factors per assessment: hospital environment/ device Assistance: 1-2 assist, Mechanical Lift, Q2hr turns Supervision: Hands on Surveillance: Bed locked in low position, call burnett within reach, purposeful hourly rounding, clutter free environment, bed/chair alarm on, Patient-specific fall prevention interventions for sensory deficits provided: Yes CPG GOAL OUTCOME EVALUATION: Continue care plan as documented. Goal: Fall Prevention-Safe Patient Handling Outcome: Ongoing (Interventions Implemented as Appropriate) 05/03/20199905/05/20 0715 05/05/20 1400 Matias Fall Risk History of Falling -- 25 -- Secondary Diagnosis -- 15 -- Ambulatory Aids -- 0 -- Intravenous Therapy/Heparin/Saline Lock -- 20 -- Gait/Transferring -- 0 -- Mental Status -- 15 -- Score -- 75 -- OTHER Matias Fall Risk -- High -- Restraint Interventions Safety Promotion/Fall Prevention -- -- fall prevention program maintained;safety round/check completed;nonskid shoes/slippers when out of bed Positioning Body Position -- -- side-lying, right Activity Activity Type -- activity adjusted per tolerance -- Activity Assistance Provided assistance, 2 people -- -- Assistive Device Utilized mechanical lift -- -- Goal: Infection Control Outcome: Ongoing (Interventions Implemented as Appropriate) 05/05/20 0715 05/05/20 1400 Safety Interventions Isolation Precautions -- standard precautions maintained Infection Prevention -- single patient room provided;rest/sleep promoted Coping Strategies Supportive Measures positive reinforcement provided -- Problem: Stroke (Hemorrhagic) (Adult) Goal: Signs and Symptoms of Listed Potential Problems Will be Absent, Minimized or Managed (Stroke) Signs and symptoms of listed potential problems will be absent, minimized or managed by discharge/transition of care (reference Stroke (Hemorrhagic) (Adult) CPG). Outcome: Ongoing (Interventions Implemented as Appropriate) 05/02/20 0800 Stroke (Hemorrhagic) Problems Assessed (Stroke (Hemorrhagic)) all Problems Present (Stroke (Hemorrhagic)) fever;communication impairment;motor/sensory impairment * Plan of Care - Meaghan Preston, CHEN - 05/05/2020 10:41 AM EDT Speech Therapy Note Patient Profile: R Caudate hemorrhage 60 Y M with substance abuse admitted with R sided subcortical hemorrhage with IV extension. S/p EVD. Mentation slightly improved. Left sided weakness +, some movements+ On antibiotics for leucocytosis, unclear source of infection. Hydration. ?? Interval History: Yesterday pt noted to be more alert, speech remained difficult to understand but was following directions better. As per Neurology, improvement secondary to antibiotic tx for infection of unclear source, WBC trending down, pt w/ improved speech, cognition, and L side UE movements this AM. Subjective: My mouth feels gross Pt w/ large amounts of thick mucous sloughing off of upper palate w/ oral care prior to PO trials. Pt awake, following simple directions, speech intelligibility improved, responding to basic questions accurately. Objective: Pt seen for dysphagia management and demonstrated the following: Pain: pt denies Respiratory Status: Room air Current Diet: NPO w/ DHT Feeding / Oral Care Status: Pt is dependent Cognitive-Linguistic Status: Alert, oriented to self, able to retain some orientation information about place and situation given to him earlier by Neurology, pt was unaware previously that he had had a stroke Command Following: Follows single step commands, Requires repetition Positioning: HOB at 80 degrees Oral / Laryngeal Mechanism Clinical Assessment: oral ROM and sensation appear intact; extensive oral care provided, pt w/ good oral control, some missing teeth; voice quality WFL Bolus Presentation(s): ?? Ice chips ?? Thin liquid via spoon, via straw ?? [place] thickened liquid via spoon, via straw ?? Puree ?? Jello Oral Preparatory Phase: active opening and closing on utensils w/o spillage; bolus cohesion and A-Ppropulsion appear adequate at this time for amounts and consistencies provided when pt is fed and aspiration precautions are maintained Pharyngeal Phase: swallow initiation appears prompt; initially throat clearing noted during oral care, significant amount of thick phlegm brought up from mouth and throat; once cleared; pt did not demonstrate further throat clearing or coughing when aspiration precautions were maintained Esophageal Phase: no overt concerns noted at this time, PO trials were limited Education: Pt educated re: IMPREGNATOR role and basic aspiration precautions. Pt voicing understanding though likely remains limited and would continue w/ pt being a total feed / supervised w/ all PO at thistime until mental status clears further. Discussed w/ RN and Neuro Team before and after session. Assessment: Pt was seen today for a follow-up IMPREGNATOR visit. Pt AMS much improved, as his ability to remain alert and aware of bolus in mouth and throat. Basic oral motor ROM appear intact as does sensation; speech intelligibility improving. Mild oropharyngeal dysphagia noted due to generalized weakness, AMS (not back to baseline). Pt will benefit from continued therapeutic interventions to achieve therapy goals. Diagnosis: s/s mild oropharyngeal dysphagia secondary to deconditioning, fluctuating levels of alertness throughout day Recommendations: Diet: Puree, Thin liquids; suggest establishing pt's ability to remain alert and eat safely and adequately 24 hours prior to removal of DHT PO medications: crushed in bite of puree with approval from pharmacist Aspiration Precautions: One to one direct supervision during all PO intake to ensure feeding strategies are followed Feed only when alert Needs verbal cues to use recommended strategies Upright position during meals and for at least 30 mins following Small sips and bites while eating Slow rate; swallow between bites Check oral cavity frequently for pocketing used controlled straw sips (pinched straw method) Excellent oral care Speech Therapy Goals: Pt will tolerate least restrictive diet without evidence of dysphagia / aspiration. Pt / caregiver will be independent with aspiration precautions, diet modifications, and safe swallowing strategies. Plan: Therapy Frequency: 2-4 times/wk Pt./family are in agreement with treatment plan. Total Evaluation Minutes, Speech Language Pathology: 45 Meaghan Preston MA, [facility] Pager: [phone] Speech-Language Pathology Inpatient Rehabilitation Medicine * Plan of Care - Alana Hernandez RN - 05/04/2020 7:29 PM EDT Problem: Patient Care Overview Goal: Plan of Care Review Outcome: Ongoing (Interventions Implemented as Appropriate) 05/02/20 1726 05/04/20 0800 Coping/Psychosocial Plan Of Care Reviewed With -- patient Plan of Care Review Progress progress toward functional goals as expected -- OUTCOME EVALUATION NOTE: OUTCOME SUMMARY: Lethargic to alert, ANTHONY orientation. Non-purposeful movement in RUE, LUE, and RLE. Withdraws to pain in LLE. PERRLA, AVSS. Safety maintained. Condom cath in place. PLAN MOVING FORWARD: Q2 nc/vitals INDIVIDUALIZED FALL PREVENTION INTERVENTIONS: Patient-specific fall risk factors per assessment: Medical devices, hospital environment Assistance: Bedrest w/ Q2hr turns Supervision: Hands on Surveillance: Bed locked in low position, call burnett within reach, purposeful hourly rounding, clutter free environment, bed/chair alarm on Patient-specific fall prevention interventions for sensory deficits provided: Yes CPG GOAL OUTCOME EVALUATION: Continue care plan as documented. * Consult Note - Rylee Greer RN - 05/04/2020 11:16 AM EDT Life Safety Program Daily Assessment Note Ollie Burnett Sr. who is a 60 y.o.male is being followed by the Life Safety Program and the Neurosurgery service. Admission Date/Time: 04/20/2020 Hospital Day 14 days Problem List: Active Hospital Problems Diagnosis ??? SIADH (syndrome of inappropriate ADH production) ??? Dysphagia as late effect of cerebrovascular disease ??? Drug abuse ??? Pneumonia due to Haemophilus influenzae ??? DVT (deep venous thrombosis) LLE ??? Superficial venous thrombosis of arm, bilateral ??? 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 Intraventricular hemorrhage Resolved Hospital Problems No resolved problems to display. Transferred from Critical Care on: 05/01/20 Intake/Output Summary (Last 24 hours) at 05/04/2020 1116 Last data filed at 05/04/2020 1000 Gross per 24 hour Intake 3321 ml Output 1850 ml Net 1471 ml Laboratory: Lab Results Component Value Date WBC 16.0 (H) 05/04/2020 Hemoglobin 12.6 (L) 05/04/2020 Hematocrit 39.1 (L) 05/04/2020 Platelets 441 (H) 05/04/2020 Potassium 3.5 05/04/2020 Calcium 8.6 05/04/2020 CO2 26 05/04/2020 BUN 32 (H) 05/04/2020 Creatinine 0.65 (L) 05/04/2020 Current Medications: Infusions: ??? tube feeding diet 1,080 mL (05/03/20 2231) Scheduled medications: ??? free water bolus 300 mL Per NG tube 4 Times Daily ??? IV Vitamin and Mineral Replacement (banana bag) Intravenous Once ??? piperacillin-tazobactam 3.375 g Intravenous Q8H ??? vancomycin 750 mg Intravenous Q8H ??? nicotine 1 patch Transdermal Daily And ??? Patch Verification 1 patch Transdermal BID And ??? nicotine 1 patch Transdermal Daily ??? enoxaparin 40 mg Subcutaneous QPM ??? amLODIPine 10 mg Per NG tube Daily ??? folic acid 1 mg Per NG tube Daily ??? lisinopriL 40 mg Per NG tube Daily ??? modafiniL 100 mg Per NG tube BID ??? propranolol 40 mg Per NG tube Q8H JOSE ??? thiamine 100 mg Per NG tube Daily ??? famotidine 40 mg Per NG tube Daily ??? multivitamin with minerals 1 tablet Oral Daily PRN Medications: senna-docusate, acetaminophen, albuteroL, labetalol Assessment: Per documentation GCS waxing/waning between 6-9 overnight, overnight LSRN aware and following. On assessment this AM GCS 12, PERRL w/ R deviated gaze, followed commands in RLE, purposeful on RUE, withdrew on LUE/LLE. Incomprehensible speech. VSS on RA Plan: Continued Assessment indicated because of patient condition Connected w/ bedside RN, encouraged to reach out with any changes or concerns Rylee Greer RN 11:16 AM May 04, 2020 * Plan of Care - Jessie Moseley RN - 05/04/2020 5:00 AM EDT Problem: Patient Care Overview Goal: Plan of Care Review Outcome: Ongoing (Interventions Implemented as Appropriate) 05/02/20 1726 05/03/20 0715 Coping/Psychosocial Plan Of Care Reviewed With -- patient Plan of Care Review Progress progress toward functional goals as expected -- OUTCOME SUMMARY: ?? Patient obtunded entire shift. Needed noxious painful stimuli to withdraw. Seemed to improve a little by the end of the shift. Opened eyes to sternal rub at 0400. Right hand squeezes, but seems to bereflex rather than to command. Mitt applied because patient pulled at DHT with right arm. Non rebreather removed per charge due to it being on since 11 am, and patients worsening respiratory status. Improved when mask taken off. There were no orders for nonrebreather management and non were placed when this was questioned at the start of PM shift. MRI completed at start of shift. TF restarted at 45 ml/hr. Tmax of 38.4. Tylenol given, and temperature normalized. Otherwise VSS. PLAN MOVING FORWARD: ?? Q2hly neuros Q2hrly vitals Maintain safety Monitor I/O ?? INDIVIDUALIZED FALL PREVENTION INTERVENTIONS: ?? Patient-specific fall risk factors per assessment: hospital device/ environment ?? Assistance: 1-2 assist, Mechanical Lift, w/ Q2hr turns ?? Supervision: Hands on ?? Surveillance: Bed locked in low position, call burnett within reach, purposeful hourly rounding, clutter free environment, bed/chair alarm on, ?? Patient-specific fall prevention interventions for sensory deficits provided: Yes ?? CPG GOAL OUTCOME EVALUATION: ?? Continue care plan as documented. * Plan of Care - Ector Ramirez RN - 05/03/2020 6:47 PM EDT Problem: Skin Integrity Impairment, Risk/Actual (Adult) Goal: Identify Related Risk Factors and Signs and Symptoms Related risk factors and signs and symptoms are identified upon initiation of Human Response Clinical Practice Guideline (CPG) Outcome: Ongoing (Interventions Implemented as Appropriate) 04/22/20 0742 Skin Integrity Impairment, Risk/Actual Skin Integrity Impairment, Risk/Actual: Related Risk Factors age extremes Signs and Symptoms (Skin Integrity Impairment) edema Goal: Skin Integrity/Wound Healing Patient will demonstrate the desired outcomes by discharge/transition of care. Outcome: Ongoing (Interventions Implemented as Appropriate) 04/22/20 0742 Skin Integrity Impairment, Risk/Actual (Adult) Skin Integrity/Wound Healing making progress toward outcome Problem: Patient Care Overview Goal: Plan of Care Review Outcome: Ongoing (Interventions Implemented as Appropriate) 05/02/20 1726 05/03/20 0715 Coping/Psychosocial Plan Of Care Reviewed With -- patient Plan of Care Review Progress progress toward functional goals as expected -- OUTCOME EVALUATION NOTE: OUTCOME SUMMARY: Pt taken over lethargic with GCS (E4, V1, M5), PERRLA, at 930am pt became unresponsive and MD notified, CT done, Ativan given and EEG done. MD ordered NRB at 12L and same asked to continue. During CTpt became responsive however 1220 pt was unresponsive again, MD and LIFE SAFETY informed, TF stopped, IVF started at 100ml/hr, blood cultures taken. Remains somnulent to end of shift. Maintaining saturations, suction prn. Febrile; fan ordered and bath given MD informed; 6pm temp 37.1. hygiene needsmet. Antibiotics ordered and initiated. Condom catheter insitu on free drain with yellow urine noted. LP done, pt remain 2hrs flat as per MD orders. Skin dry and intact. PLAN MOVING FORWARD: Q2hly neuros Q2hrly vitals Maintain safety Monitor I/O INDIVIDUALIZED FALL PREVENTION INTERVENTIONS: Patient-specific fall risk factors per assessment: hospital device/ environment Assistance: 1-2 assist, Mechanical Lift, w/ Q2hr turns Supervision: Hands on Surveillance: Bed locked in low position, call burnett within reach, purposeful hourly rounding, clutter free environment, bed/chair alarm on, Patient-specific fall prevention interventions for sensory deficits provided: Yes CPG GOAL OUTCOME EVALUATION: Continue care plan as documented. Goal: Fall Prevention-Safe Patient Handling Outcome: Ongoing (Interventions Implemented as Appropriate) 04/30/20 1800 05/01/20 1800 05/03/20 0715 Polly Fall Risk History of Falling -- -- 25 Secondary Diagnosis -- -- 15 Ambulatory Aids -- -- 0 Intravenous Therapy/Heparin/Saline Lock -- -- 0 Gait/Transferring -- -- 20 Mental Status -- -- 15 Score -- -- 75 OTHER Matias Fall Risk -- -- High Restraint Interventions Safety Promotion/Fall Prevention -- -- -- Positioning Body Position -- -- -- Activity Activity Type -- -- -- Activity Assistance Provided -- assistance, 2 people -- Assistive Device Utilized mechanical lift -- -- 05/03/20 1200 05/03/20 1600 05/03/20 1800 Matias Fall Risk History of Falling -- -- -- Secondary Diagnosis -- -- -- Ambulatory Aids -- -- -- Intravenous Therapy/Heparin/Saline Lock -- -- -- Gait/Transferring -- -- -- Mental Status -- -- -- Score -- -- -- OTHER Matias Fall Risk -- -- -- Restraint Interventions Safety Promotion/Fall Prevention -- -- fall prevention program maintained;safety round/check completed;nonskid shoes/slippers when out of bed Positioning Body Position side-lying, right -- -- Activity Activity Type -- activity adjusted per tolerance -- Activity Assistance Provided -- -- -- Assistive Device Utilized -- -- -- Goal: Infection Control Outcome: Ongoing (Interventions Implemented as Appropriate) 05/03/2071405/03/201799 Safety Interventions Isolation Precautions -- standard precautions maintained Infection Prevention -- single patient room provided;rest/sleep promoted Coping Strategies Supportive Measures positive reinforcement provided -- Problem: Stroke (Hemorrhagic) (Adult) Goal: Signs and Symptoms of Listed Potential Problems Will be Absent, Minimized or Managed (Stroke) Signs and symptoms of listed potential problems will be absent, minimized or managed by discharge/transition of care (reference Stroke (Hemorrhagic) (Adult) CPG). Outcome: Ongoing (Interventions Implemented as Appropriate) 05/02/20 0800 Stroke (Hemorrhagic) Problems Assessed (Stroke (Hemorrhagic)) all Problems Present (Stroke (Hemorrhagic)) fever;communication impairment;motor/sensory impairment * Plan of Care - [place], Brenda, PT - 05/03/2020 1:10 PM EDT 05/03/20 1309 Rehab Evaluation Document Type contact Total Evaluation Minutes, Physical Therapy 0 Evaluation Not Performed Comment Life safety called this AM. Pt with decreased neurlogic status. PTto hold and f/u next week, as appropriate. * Plan of Care - Kathryn Urban OTA - 05/03/2020 9:18 AM EDT 05/03/20 0916 Rehab Evaluation Document Type contact Total Evaluation Minutes, Occupational Therapy 0 Evaluation Not Performed Comment Attempted to see pt this AM, pt received in bed somnolent and unable to be aroused to stimulus, RN notified Clinical Impression Therapy Frequency 2-4 times/wk Anticipated Discharge Disposition inpatient rehabilitation facility * Plan of Care - Joan Domínguez RN - 05/03/2020 5:10 AM EDT Problem: Patient Care Overview Goal: Plan of Care Review Outcome: Ongoing (Interventions Implemented as Appropriate) 05/02/20 1726 05/02/201999 Coping/Psychosocial Plan Of Care Reviewed With -- patient Plan of Care Review Progress progress toward functional goals as expected -- OUTCOME EVALUATION NOTE: OUTCOME SUMMARY: Pt doesn't seem to want to perform neuro assessment but is consistent with following commands with RUE . PLAN MOVING FORWARD: Reposition q2h, neuro Q2 INDIVIDUALIZED FALL PREVENTION INTERVENTIONS: Patient-specific fall risk factors per assessment: [current deficits]: ams Assistance [level of assistance required for transfers and ambulation]:x2 Supervision [direct monitoring required during toileting and ADLs]: Full Surveillance [continuous indirect monitoring]: tami Patient-specific fall prevention interventions for sensory deficits provided, if applicable: CPG GOAL OUTCOME EVALUATION: Goal: Fall Prevention-Safe Patient Handling Outcome: Ongoing (Interventions Implemented as Appropriate) 04/30/20 1800 05/01/20 1800 05/02/20 1800 Matias Fall Risk History of Falling -- -- -- Secondary Diagnosis -- -- -- Ambulatory Aids -- -- -- Intravenous Therapy/Heparin/Saline Lock -- -- -- Gait/Transferring -- -- -- Mental Status -- -- -- Score -- -- -- OTHER Matias Fall Risk -- -- -- Restraint Interventions Safety Promotion/Fall Prevention -- -- -- Positioning Body Position -- -- -- Activity Activity Type -- -- activity adjusted per tolerance;bedrest Activity Assistance Provided -- assistance, 2 people -- Assistive Device Utilized mechanical lift -- -- 05/02/20199905/03/20399 Mtaias Fall Risk History of Falling 25 -- Secondary Diagnosis 15 -- Ambulatory Aids 0 -- Intravenous Therapy/Heparin/Saline Lock 20 -- Gait/Transferring 0 -- Mental Status 15 -- Score 75 -- OTHER Matias Fall Risk High -- Restraint Interventions Safety Promotion/Fall Prevention -- safety round/check completed Positioning Body Position weight shift assistance provided -- Activity Activity Type -- -- Activity Assistance Provided -- -- Assistive Device Utilized -- -- Goal: Infection Control Outcome: Ongoing (Interventions Implemented as Appropriate) 05/02/20199905/03/20399 Safety Interventions Isolation Precautions -- standard precautions maintained Infection Prevention environmental surveillance performed -- Coping Strategies Supportive Measures goal setting facilitated -- * Plan of Care - Susanna Plaza RN - 05/02/2020 5:28 PM EDT Problem: Patient Care Overview Goal: Plan of Care Review Outcome: Ongoing (Interventions Implemented as Appropriate) 05/02/20 1726 Coping/Psychosocial Plan Of Care Reviewed With patient Plan of Care Review Progress progress toward functional goals as expected OUTCOME EVALUATION NOTE: OUTCOME SUMMARY: Spiked fever today. Neurology team with Dr. To aware. Increased antihypertensive medications with improved BP control noted. Right hand PIV removed by VAS RN as patient noted to have clots in his right arm. Per neuro team patient also has blood clots in his left arm. Right upper arm midline catheter remains intact with excellent blood return noted. Neuro assessments generally unchanged. However after patient received his midafinil medication he was noted to be more awake in bed. PT worked with patient. See their note for more information. Flexiseal removed. No further stool throughout the shift. Tolerating tube feeds with no residuals noted. Additional free water added to DHT fluids. PLAN MOVING FORWARD: Continue to closely monitor waxing and waning of neuro assessments. Notify if changed. May need repeat CT or MRI if warranted. INDIVIDUALIZED FALL PREVENTION INTERVENTIONS: Patient-specific fall risk factors per assessment: [current deficits]: As noted in EMR. Assistance [level of assistance required for transfers and ambulation]: As noted in EMR. Supervision [direct monitoring required during toileting and ADLs]: Eyes on hands on and as noted in EMR. Surveillance [continuous indirect monitoring]: Purposeful hourly rounding and as noted in EMR. Patient-specific fall prevention interventions for sensory deficits provided, if applicable: As noted in EMR. CPG GOAL OUTCOME EVALUATION: Goal: Individualization & Mutuality Outcome: Ongoing (Interventions Implemented as Appropriate) 04/22/20 0742 Mutuality/Individual Preferences What Anxieties, Fears or Concerns Do You Have About Your Health or Care? ANTHONY What Questions Do You Have About Your Health or Care? ANTHONY What Information Would Help Us Give You More Personalized Care? ANTHONY Goal: Fall Prevention-Safe Patient Handling Outcome: Ongoing (Interventions Implemented as Appropriate) 04/30/20 1800 05/01/20 1800 05/02/20 0800 Matias Fall Risk History of Falling -- -- 25 Secondary Diagnosis -- -- 15 Ambulatory Aids -- -- 0 Intravenous Therapy/Heparin/Saline Lock -- -- 20 Gait/Transferring -- -- 20 Mental Status -- -- 15 Score -- -- 95 OTHER Matias Fall Risk -- -- High Restraint Interventions Safety Promotion/Fall Prevention -- -- safety round/check completed;nonskid shoes/slippers when outof bed;activity supervised;fall prevention program maintained Positioning Body Position -- -- -- Activity Activity Type -- -- activity adjusted per tolerance;bedrest Activity Assistance Provided -- assistance, 2 people -- Assistive Device Utilized mechanical lift -- -- 05/02/20 1200 Matias Fall Risk History of Falling -- Secondary Diagnosis -- Ambulatory Aids -- Intravenous Therapy/Heparin/Saline Lock -- Gait/Transferring -- Mental Status -- Score -- OTHER Matias Fall Risk -- Restraint Interventions Safety Promotion/Fall Prevention -- Positioning Body Position side-lying, left Activity Activity Type -- Activity Assistance Provided -- Assistive Device Utilized -- Goal: Infection Control Outcome: Ongoing (Interventions Implemented as Appropriate) 05/01/20 2105 05/02/20 0800 Safety Interventions Isolation Precautions -- standard precautions maintained Infection Prevention -- environmental surveillance performed;rest/sleep promoted Coping Strategies Supportive Measures goal setting facilitated -- Goal: Discharge Needs Assessment Outcome: Ongoing (Interventions Implemented as Appropriate) 04/22/20 0741 04/24/20 0249 04/28/20 1552 Discharge Needs Assessment Readmission Within The Last 30 Days -- no previous admission in last 30 days -- Provider Choice List(s) Given -- yes -- Current Discharge Risk lives alone -- -- Discharge Disposition -- -- still a patient Goal: Interdisciplinary Rounds/Family Conf Outcome: Ongoing (Interventions Implemented as Appropriate) 04/28/20 1552 Interdisciplinary Rounds/Family Conf Participants patient;nursing;physician Problem: Stroke (Hemorrhagic) (Adult) Goal: Signs and Symptoms of Listed Potential Problems Will be Absent, Minimized or Managed (Stroke) Signs and symptoms of listed potential problems will be absent, minimized or managed by discharge/transition of care (reference Stroke (Hemorrhagic) (Adult) CPG). Outcome: Ongoing (Interventions Implemented as Appropriate) 05/02/20 0800 Stroke (Hemorrhagic) Problems Assessed (Stroke (Hemorrhagic)) all Problems Present (Stroke (Hemorrhagic)) fever;communication impairment;motor/sensory impairment * Plan of Care - Leonard Deleon, PT - 05/02/2020 2:14 PM EDT Physical Therapy Note Treatment Number PT: 4 Patient profile: Ollie Burnett SrTony is a 60 y.o. right handed male admitted on 04/20/[address] Jana Trinh MD transferred from [facility] ED after being found down with altered MS, Head CT howing IVH and hydrocephalus with poor neurological exam requiring intubation. COVID tested in ED and was negative. Emergent EVD placed for hydrocephalus and admitted to Neuro ICU. 04/22/20 CT angiogram without evidence of aneurysm or AVM. vEEG to evaluate for seizures. MRI complete showing small scattered acute infarct. Interval History: Neuro exam improved,Extubated 04/26, EVD remains, ICP less than 20, gradually more alert and following commands. 04/30 EVD clamped overnight, head CT 05/01, EVD discontinued 05/01, transferred from ICU to Neuro special care unit. Social History: Info obtained from chart & SW note as patient non-verbal with ETT on day of . Lives in [place], [place]. Live in a tiny room @ a boarding home, no stove or refridgerator in his room, shared BR with other tenants @ home. He lives in ground floor room- no stairs. He uses public transport to get to store. Susanna lives in same building and reports he has multiple falls & doesn't always keep up with personal care Precautions/Special Considerations: Lines: tube feeds with dobhnelida, brewster, flexiseal, L & RUE IV lines, (R) wrist soft restraint Activity Orders: act as tolerated, up with assist Diet: NPO, tube feedings Mobility and Positioning Recommendations: ?? Pt. to utilize bed into chair position with staff/nursing. ?? Pt can be mechanically lifted bed >< chair. ?? Hasn't followed commands to stand (max A x 2 on 05/01 to stand) Subjective: Pt opening eyes only a few times today but not talking today, very sleepy. Objective: Patient seen for physical therapy and demonstrated the following: Pain: no c/o's Vital Signs: HR=93 SpO2=95% RA TQ=823/73 ?? Patient resting in bed when I arrived, sleepy, aroused when rolled (RN going to remove flexiseal) ?? Patient assisted OOB to R side, assisted with sitting balance initially then he was able to maintain balance once on his own. Unfortunately closes eyes again-not much stamina today. ?? He has R gaze preference so assisted to rotate his head to midline/towards L but eyes not following. ?? While sitting washed his back and armpits and changed brandon top as he was sweaty. ?? Wiped his face with cool cloth and he did open eyes briefly again. He did hold balance again, very close supervision. ?? Sitting encouraged him to talk and move, he lifted R arm as if he had an itch but didn't make itto his head, not moving L side at all or following any commands. ?? Sit > supine: max A x 2, lifted towards HOB, positioned w/ pillows including a pillow to helpturn head to neutral, R wrist restraint applied. ?? Pt left in bed with HOB raised, tube feeds running with IV team entering room following therapy visit. Education: Pt reminded where he is and importance of therapy, expect he'll need reminders as he's not very responsive today; sleepy. Assessment: Ollie Burnett Sr. was seen today for physical therapy treatment session for continuation of POC. He's now extubated but not speaking much, has EVD out but sleepy today, only aroused withgross movements (rolling, sitting, balance EOB) Continued R gaze preference, continued L sided weakness, max assist for all mobility but he did briefly hold static sitting balance EOB today. Should move to a room with mechanical ceiling lift in it. Pt will benefit from ongoing therapeutic interventions to achieve therapy goals. Discharge Recommendations: Based on the current findings, Anticipated Discharge Disposition: inpatient acute rehabilitation when medically ready for hospital discharge. Consult Recommendations: CM for d/c planning Equipment needs: TBD @ rehab facility; ongoing assessments. Physical Therapy Goals: To be achieved by 05-11-20: ONGOING ?? 1. Pt able to stay alert with eyes open for entire therapy session & follow commands. 2. Pt to demonstrate understanding of self-assist exercises (R side helping L). 3. Pt. to perform bed mobility with min A. 4. Pt able to hold his head up and turn head s><s with cues, scanning both sides, able to track. 5. Pt able to tolerated mechanical lift transfers bed >< chair or tolerate ICU bed-chair position with supports on his L. 6. Pt able to maintain midline sitting balance with R arm to lean on with CGA x 1. 7. Pt able to move sit >< stand with 2 person assist, ^ WB on L side to stimulate return. 8. Pt able to stand-pivot transfer with 2 assist. 9. Pt to propel wheelchair x 20 ft. using any limbs independently and with supervision and verbal cues for steering & scanning L. 10. Pt will tolerate progression towards upright with stable vital signs. Plan: Therapy Frequency: 2-4 times/wk for as outlined in initial evaluation. Patient agrees with plan as stated. Time IN / OUT: 10:50-11:34 Total Evaluation Minutes, Physical Therapy: 44(TE-F x 3) LEONARD DELEON, PT Pager: [phone] Physical Therapy Inpatient Rehabilitation Department * Consult Note - Meagan Gomes RN - 05/02/2020 11:33 AM EDT Certified Wound Care Nurse Rounding Note Situation: Asked to see Ollie Burnett Sr. by nursing for low ludmila. No injuries are documented. Background: eD-H notes reviewed for history, admitting diagnosis and active problem list. Rounded on patient, discussed patient with RN. Reviewed assessment of all bony prominences and under devices for pressure ulcer development, ability to turn/reposition and if there are any barriers due to patient condition for routine care, turning schedules and or pressure ulcer prevention. RN reports the patient is tolerating every 2 hour turns/repositions using pillows and does not have any skin concerns at this time. ? Issues/concerns identified: NONE ? Current Wound Care Recommendations reviewed: Follow hospital standard for pressure injury prevention and skin care. Refer to adult/pediatric pressure ulcer prevention job aid in the clinical policy library. ? ? RN verbalized understanding and denied any skin/wound care issues. Wound care consult will be completed at this time. If the above plan of care is not effective or the patient develops new skin issues/concerns please reconsult. ? Discussed with RN: Susanna ? Please contact Meagan Gomes RN on pager [phone] or the wound care team at [phone] or pager [phone] with skin and wound care concerns or questions. * Plan of Care - Jes-Meaghan Guardado SLP - 05/02/2020 9:19 AM EDT Speech Therapy Note Patient Profile: ??? Compression of brain due to spontaneous cerebral hemorrhage ? 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 If he was thirsty but no other verbal or physical responses to questions or directions. Objective: Pt seen for dysphagia management and demonstrated the following: Pain: no overt s/s pain, pt does not respond to ? Re: pain Respiratory Status: Room air Current Diet: NPO diet (Give Meds), DHT Feeding / Oral Care Status: Pt is dependent Cognitive-Linguistic Status: confused and drowsy Command Following: Does not follow commands accurately Positioning: HOB at 80 degrees Oral / Laryngeal Mechanism Clinical Assessment: pt not responding to directions; opens mouth slightly to swab w/ oral care / stimulation to lips; when swab placed on tongue, pt bites down hard (phasic bite), dids not release for 30 seconds, release achieved only w/ clinician message of TMJ area andgentle pushing down of chin; no active sucking or other response to moist swab in mouth. No response to ice chip placed on lower lip or in anterior sucli Bolus Presentation(s): ?? Judged not safe for PO trials at this time Oral Preparatory Phase: NA Pharyngeal Phase: NA Esophageal Phase: NA Education: Unable to educate pt due to AMS. Discussed pt w/ RN before and after session. Assessment: Pt was seen today for a follow-up IMPREGNATOR visit. Pt reportedly has some periods when he is a bit more responsive but in general has not been judged alert or aware enough for PO trials to attempt more than oral care and small ice chips. Pt will benefit from continued therapeutic interventions to achieve therapy goals. Diagnosis: Severe dysphagia secondary to AMS Recommendations: Consider Goals of Care / Pallative Care consult at this time Diet: NPO PO medications: IV or other alternative means only Aspiration Precautions: Excellent oral care Speech Therapy Goals: Pt will initiate swallows within 1-2 given thermal / gustatory stimulation Pt will demonstrate effortful swallows with good execution Plan: Therapy Frequency: 1-3 times/wk Pt unable to give informed agreement with plan at this time due to decreased MS. Total Evaluation Minutes, Speech Language Pathology: 15 Meaghan Preston MA, [facility] Pager: [phone] Speech-Language Pathology Inpatient Rehabilitation Medicine * Plan of Care - Joan Domínguez RN - 05/02/2020 5:08 AM EDT Problem: Patient Care Overview Goal: Plan of Care Review Outcome: Ongoing (Interventions Implemented as Appropriate) 04/25/20182104/30/202199 Coping/Psychosocial Plan Of Care Reviewed With -- daughter Plan of Care Review Progress progress toward functional goals as expected -- OUTCOME EVALUATION NOTE: OUTCOME SUMMARY: Pt will follow commands But seems to not be as cooperative as night progressed. TF at goal. SR on monitor. labetalol given to keep sbp <160 PLAN MOVING FORWARD: Keep sbp <160, reposition q2h INDIVIDUALIZED FALL PREVENTION INTERVENTIONS: Patient-specific fall risk factors per assessment: [current deficits]: L weaker than R Assistance [level of assistance required for transfers and ambulation]: x2 Supervision [direct monitoring required during toileting and ADLs]: full Surveillance [continuous indirect monitoring]: tami Patient-specific fall prevention interventions for sensory deficits provided, if applicable: CPG GOAL OUTCOME EVALUATION: Goal: Fall Prevention-Safe Patient Handling Outcome: Ongoing (Interventions Implemented as Appropriate) 04/30/20179905/01/20179905/01/202104 Matias Fall Risk History of Falling -- -- 25 Secondary Diagnosis -- -- 15 Ambulatory Aids -- -- 0 Intravenous Therapy/Heparin/Saline Lock -- -- 20 Gait/Transferring -- -- 0 Mental Status -- -- 15 Score -- -- 75 OTHER Matias Fall Risk -- -- High Restraint Interventions Safety Promotion/Fall Prevention -- -- -- Positioning Body Position -- weight shift assistance provided -- Activity Activity Type -- -- -- Activity Assistance Provided -- assistance, 2 people -- Assistive Device Utilized mechanical lift -- -- 05/01/20213305/02/20399 Matias Fall Risk History of Falling -- -- Secondary Diagnosis -- -- Ambulatory Aids -- -- Intravenous Therapy/Heparin/Saline Lock -- -- Gait/Transferring -- -- Mental Status -- -- Score -- -- OTHER Matias Fall Risk -- -- Restraint Interventions Safety Promotion/Fall Prevention -- safety round/check completed Positioning Body Position -- -- Activity Activity Type activity adjusted per tolerance -- Activity Assistance Provided -- -- Assistive Device Utilized -- -- Goal: Infection Control Outcome: Ongoing (Interventions Implemented as Appropriate) 05/01/20210405/01/20213305/02/20399 Safety Interventions Isolation Precautions -- -- standard precautions maintained Infection Prevention -- rest/sleep promoted -- Coping Strategies Supportive Measures goal setting facilitated -- -- * Plan of Care - Rich Leonard M, PT - 05/01/2020 10:10 AM EDT Physical Therapy Note Treatment Number PT: 3 Patient profile: Ollie Burnett Sr. is a 60 y.o. right handed male admitted on 04/20/[address] Jana Trinh MD transferred from [facility] ED after being found down with altered MS, Head CT howing IVH and hydrocephalus with poor neurological exam requiring intubation. COVID tested in ED and was negative. Emergent EVD placed for hydrocephalus and admitted to Neuro ICU. 04/22/20 CT angiogram without evidence of aneurysm or AVM. vEEG to evaluate for seizures. MRI complete showing small scattered acute infarct. Interval History: Neuro exam improved,Extubated 04/26, EVD remains, ICP less than 20, gradually more alert and following commands. 04/30 EVD clamped overnight, will have head CT and may get EVD discontinued. Social History: Info obtained from chart & SW note as patient non-verbal with ETT on of eval. Lives in [place], [place]. Live in a tiny room @ a boarding home, no stove or refridgerator in his room, shared BR with other tenants @ home. He lives in ground floor room- no stairs. He uses public transport to get to store. Susanna lives in same building and reports he has multiple falls & doesn't always keep up with personal care Precautions/Special Considerations: EVD in place, RN to clamp for mobility Lines: tube feeds with dobhoff, brewster, flexiseal, L anticubital IV, L subclavian line, R IV lines, (R) wrist soft restraint Activity Orders: act as tolerated, up with assist Diet: NPO, tube feedings Mobility and Positioning Recommendations: ?? Pt. to utilize ICU bed into chair position with staff/nursing. ?? Pt can be mechanically lifted bed >< chair. Subjective: Pt opening eyes but not talking today; quiet, sleepy affect. Objective: Patient seen for physical therapy and demonstrated the following: Pain: no c/o's Vital Signs: HR=80 SpO2=97% RA AD=479/81 ?? Patient resting in bed when I arrived, able to arouse to participate, EVD clamped. ?? Patient moved into full bed-chair position with footboard removed and feet on floor, assisted tosit forwards & encouraged him to pull with bed railings: he did grab both railings but max A tosit up and maintain balance. ?? Assist to scoot forwards and pillow's placed behind his back for support: worked on ex's but he showed no initiation. Moving UE's more spontaneous than either LE. ?? He tends to close his eyes, able to keep aroused to stand. ?? Sit > stand: from end of bed with max A x 2, he was able to hold some wt but not standing very erect. ?? Pt left in bed/chair position reclined with soft wrist restraints back on R wrist following visit. Education: Pt reminded where he is and why(poor orientation) in addition to purpose of therapy while in the hospital and anticipate he'll need reminders each visit, not sure he'd retain. Assessment: Ollie Ceja Hortencia Gutierres. was seen today for physical therapy treatment session for continuation of POC. He's now extubated but not speaking much today but is able to speak, he's sleep today butable to arouse and keep eyes open, continues with L sided weakness, max assist to lean forward awayfrom bed, poor postural control, tried standing but again required 2 assist. He closed his eyes so returned to comfortable position in bed with soft wrist restraint on R hand. Continues to be dependent for all tasks currently. Pt will benefit from ongoing therapeutic interventions to achieve therapy goals. Discharge Recommendations: Based on the current findings, Anticipated Discharge Disposition: inpatient rehabilitation facility, swing bed, half-way facility when medically ready for hospital discharge. Consult Recommendations: CM for d/c planning Equipment needs: TBD @ rehab facility; ongoing assessments. Physical Therapy Goals: To be achieved by 05-11-20: ONGOING ?? 1. Pt able to stay alert with eyes open for entire therapy session & follow commands. 2. Pt to demonstrate understanding of self-assist exercises (R side helping L). 3. Pt. to perform bed mobility with min A. 4. Pt able to hold his head up and turn head s><s with cues, scanning both sides, able to track. 5. Pt able to tolerated mechanical lift transfers bed >< chair or tolerate ICU bed-chair position with supports on his L. 6. Pt able to maintain midline sitting balance with R arm to lean on with CGA x 1. 7. Pt able to move sit >< stand with 2 person assist, ^ WB on L side to stimulate return. 8. Pt able to stand-pivot transfer with 2 assist. 9. Pt to propel wheelchair x 20 ft. using any limbs independently and with supervision and verbal cues for steering & scanning L. 10. Pt will tolerate progression towards upright with stable vital signs. Plan: Therapy Frequency: 2-4 times/wk for as outlined in initial evaluation. Patient agrees with plan as stated. Time IN / OUT: 9:40-10:10 Total Evaluation Minutes, Physical Therapy: 30(TE-F x 2) LEONARD DELEON PT Pager: [phone] Physical Therapy Inpatient Rehabilitation Department * Plan of Care - Alison Arevalo OT - 05/01/2020 9:40 AM EDT Occupational Therapy Treatment Note Treatment Number OT: 3 Patient Dx: Ollie Burnett Sr. is a 60 y.o. male with R BG IPH with IVH leading to hydrocephalus s/p L EVD placement. DSA 04/22 without aneurysm or vascular malformation. With change in neuro exam postDSA and having been started on phenobarbital for ETOH withdrawal, repeat CT head stable. MRI with tiny scattered acute infarcts does not provide explanation for change in exam. Patient was extubated on 04/26. Precautions/Special Considerations: fall risk, up with assist, activity as tolerated, SBP <160, EVD (RN to clamp for activity), L hemiplegia Interval History: -RHYS OVN. Neurologically stable -EVD clamped Social History: Patient lives in a boarding home on the ground level with no WILLI. Home Setup: TBD DME: TBD Baseline ADL/Mobility: Pt was unable to provide details regarding social history or prior level of functioning secondary to somnolence. S: Pt presented as lethargic with minimal verbalizations. O: Patient seen for skilled OT treatment, and demonstrated the following: ?? Self-care: Pt engaged in seated balance activities in bed chair position. He continues to require dependent assist with self care activities. ?? Functional Mobility: Bed chair position initiated to increase alertness and engage Pt in seated balance activities and UE/LE exercises. ?? Cognition: ?? Behavior / Mood: alert, cooperative and confused ?? Alert and oriented to: person ?? Follows commands: 1 step and 50% of the time ?? Attention: distractible, difficulty attending to task/directions and requires cues to redirect ?? Safety awareness: decreased insight into deficits, impulsive and moderate impairment ?? Vision: R gaze preference ?? Endurance: Fair ?? Vitals: SpO2 97%, HR 82 bpm, BP 145/81 ?? Strength/ROM: L hemiplegia Pain: No complaints of pain. Education: Pt/family/caregiver education ongoing regarding: Role of occupational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 Neurology will continue to follow. - Urgent CTH for acute changes in mental status - SBP < 160 - Continue keppra 500 mg BID - HOLD anticoagulation and antiplatelet - EVD management as per NSGY - PT/OT/IMPREGNATOR Protocol for Delirious Patients: - Orientation: ?- Provide visual (magnification devices, etc.) as needed ?- Provide hearing aids as needed ?- Utilize cues such as calendars and clocks ?- Keep the date on the whiteboard accurate ?- Encourage communication and re-orient patient frequently ?- Have familiar objects from patient's home present in the room ?- Attempt consistency in nursing staff ?- Allow television during the day with daily news ?- Provide a current copy of the newspaper ?- Non-verbal music - Environment: ?- Ambulate or mobilize patient early and often ?- Out of bed to chair with meals ?- Monitor frequency of bowel movements ?- Limit excess noise (staff, equipment, visitors at night, etc.) ?- Sleep hygiene (dim light at nighttime, bright during the day) - Medications ?- Treat pain ?- Minimize deliriogenic medications (anticholinergics, narcotics, sedatives, ?histamine blockers, corticosteroids) Lu Niño MD PGY3 Neurology Resident 04/29/2020 Vascular Neurology Pager [phone] Standard [facility] [place]: This screen is to be used to document a Swallow Screen prior to ingestion of water and /or oral medications for patients with possible stroke (Ischemic or Hemorrhagic). Exclusion Criteria: A swallow screen is not to be performed on patients who: ?? have a decreased level of consciousness. ?? are not able to follow simple commands. ?? are hypoxic, or have increasing O2 needs or may need to be intubated. ?? have a G/J tube for nutrition. ?? have a recent history of a swallowing disorder *These patients should remain NPO (HOLD MEDS) and the physician notified for further orders. Swallow Screen Using Water: None of the Exclusion Criteria as mentioned above is present? Patient is alert and sitting upright? Able to close lips and tongue is midline? Able to cough, manage oral secretions with dry voice? ONLY IF ABOVE ALL YES, Able to swallow 30 ml of water without coughing, displaying a wet voice or choking? Repeat Twice. ??? If YES to all responses, proceed with water and oral medications as well as diet as medical provider deems appropriate. Consider IMPREGNATOR consult for full evaluation and diet recommendations. ??? If NO to any of the responses, stop immediately, keep patient NPO and notify physician. * Plan of Care - Celia Crowley RN - 04/28/2020 4:07 PM EDT Problem: Patient Care Overview Goal: Plan of Care Review Outcome: Ongoing (Interventions Implemented as Appropriate) 04/28/20 08 Coping/Psychosocial Plan Of Care Reviewed With patient OUTCOME EVALUATION NOTE: OUTCOME SUMMARY: Patient initially very lethargic and disoriented x4, following minimal commands. Patient was febrile to 38.1C - blood and urine cultures ordered and sent and PRN tylenol was given. Patient now following commands, moving right side > left, alert to self only, pupils 4/brisk. EVD raised to 20 above per neurosurgery. Remains on RA. SBP goal < 160, nicardipine off since 949. Tube feeds continued at goal. Flexiseal remains in place. Condom cath on. Patient in bedchair position most of the day. Sister updated. PLAN MOVING FORWARD: Continue q2hr neuro checks Maintain SBP < 160 Follow up with cultures Goal: Fall Prevention-Safe Patient Handling Outcome: Ongoing (Interventions Implemented as Appropriate) 04/26/20199904/28/20 0804/28/20 1200 Matias Fall Risk History of Falling -- 25 -- Secondary Diagnosis -- 15 -- Ambulatory Aids -- 0 -- Intravenous Therapy/Heparin/Saline Lock -- 20 -- Gait/Transferring -- 0 -- Mental Status -- 15 -- Score -- 75 -- OTHER Matias Fall Risk -- High -- Restraint Interventions Safety Promotion/Fall Prevention -- -- -- Positioning Body Position -- -- neutral body alignment;neutral head position;side-lying, right;weight shift assistance provided;with 2-person assist Activity Activity Type -- -- activity adjusted per tolerance;activity encouraged Activity Assistance Provided -- -- assistance, 2 people Assistive Device Utilized mechanical lift -- -- 04/28/20 1400 Polly Fall Risk History of Falling -- Secondary Diagnosis -- Ambulatory Aids -- Intravenous Therapy/Heparin/Saline Lock -- Gait/Transferring -- Mental Status -- Score -- OTHER Matias Fall Risk -- Restraint Interventions Safety Promotion/Fall Prevention activity supervised Positioning Body Position -- Activity Activity Type -- Activity Assistance Provided -- Assistive Device Utilized -- Goal: Infection Control Outcome: Ongoing (Interventions Implemented as Appropriate) 04/28/20 0800 04/28/20 1400 Safety Interventions Isolation Precautions -- standard precautions maintained Infection Prevention -- environmental surveillance performed;rest/sleep promoted;single patient room provided Coping Strategies Supportive Measures relaxation techniques promoted -- Goal: Discharge Needs Assessment Outcome: Ongoing (Interventions Implemented as Appropriate) 04/28/20 1552 Discharge Needs Assessment Discharge Disposition still a patient Goal: Interdisciplinary Rounds/Family Conf Outcome: Ongoing (Interventions Implemented as Appropriate) 04/28/20 1552 Interdisciplinary Rounds/Family Conf Participants patient;nursing;physician * Plan of Care - Zane Gaviria RN - 04/25/2020 6:28 PM EDT Problem: Patient Care Overview Goal: Plan of Care Review Outcome: Ongoing (Interventions Implemented as Appropriate) 04/25/20 1822 Coping/Psychosocial Plan Of Care Reviewed With patient Plan of Care Review Progress progress toward functional goals as expected OUTCOME EVALUATION NOTE: OUTCOME SUMMARY: Neuro labile, but consistently following command on the right upper with a thumbs up and right lower to wiggle toes. Pt intermittently following on the LUE which is an improvement today. Pt continuesto be on 0.6 of precedex for etoh withdrawal management. VSS. Requiring PRN labatolol x1 to maintain SBP <160. Pt continues to have thin yates secretions from ETT requiring lavage and added albuterol neb. Abdomen distended, KUB obtained, bowel regimen advanced, x2 bowel movements with lots of gas today. PLAN MOVING FORWARD: Neuro q2, precedex for WD management * Plan of Care - Emelina Valdez SLP - 04/25/2020 9:08 AM EDT Speech-Language Pathology Contact Note Pt remains on ventilator support, sedation increased. IMPREGNATOR will sign off at this point, please reconsult upon successful extubation. Thank you. Emelina Valdez, MS, [facility]-IMPREGNATOR Inpatient Rehabilitation Medicine pager:# [phone] * Plan of Care - Zane Gaviria RN - 04/24/2020 6:03 PM EDT Problem: Patient Care Overview Goal: Plan of Care Review Outcome: Ongoing (Interventions Implemented as Appropriate) 04/24/20 6183 Coping/Psychosocial Plan Of Care Reviewed With patient Plan of Care Review Progress progress toward functional goals as expected OUTCOME EVALUATION NOTE: OUTCOME SUMMARY: Pt neuro exam labile throughout the shift, at bed pt follows on right upper and lower, thumbs up squeeze and wiggles toes. Left side at start of shift was only WD to pain, however throughout the shift started localizing with the left upper. Pt became increasingly restless. Due to concerns for alcohol WD, the team decided to start precedex. After precedex was started @ 0.5 pt stopped following commands and was only localizing in all four extremities. Team made aware, no CT was ordered and the precedex was decrease to 0.3. EVD putting out clear/pink fluid, ICP <20 throughout the shift. pt required nicardipine @ 2.5 throughout the day, however once precedex was started and restlessness subsided the nicardipine was weaned off. D/t neuro exam and thick yates secretions plans to extubate whereheld and will be reevaluated tomorrow. Condom cath used with adequate UOP. K replaced. Pt sat in chair position with PT and OT today . PLAN MOVING FORWARD: Monitor neuro q1 INDIVIDUALIZED FALL PREVENTION INTERVENTIONS: Patient-specific fall risk factors per assessment: [current deficits]: IPH with IVH Assistance [level of assistance required for transfers and ambulation]: Hands on Supervision [direct monitoring required during toileting and ADLs]: q2 hr turns Surveillance [continuous indirect monitoring]:hourly rounding 30 min visual checks bed alarm bed inlow locked position Patient-specific fall prevention interventions for sensory deficits provided, if applicable: yes CPG GOAL OUTCOME EVALUATION: * Consult Note - Labbie, [place], [employer] - 04/24/2020 12:22 PM EDT Images from the original note were not included. VAS into place IV. Spoke to RN regarding patient central line, sub clavian. It has some redness, however it looks irritated skin. Does look appear to be infected, no signs of drainage at this time. Patient has multiple areas of redness on his skin. * Plan of Care - Rich Leonard M, PT - 04/24/2020 11:25 AM EDT Physical Therapy Evaluation Patient profile: Ollie Burnett Sr. is a 60 y.o. right handed male admitted on 04/20/[address] Jana Trinh MD transferred from OSH ED after being found down with altered MS, Head CT howing IVH and hydrocephalus with poor neurological exam requiring intubation. COVID tested in ED and was negative. Emergent EVD placed for hydrocephalus and admitted to Neuro ICU. 04/22/20 CT angiogram without evidence of aneurysm or AVM. vEEG to evaluate for seizures. MRI complete showing small scattered acute infarct. Patient with the following active problems: History reviewed. No pertinent past medical history. Past Surgical History: Procedure Laterality Date ??? PRO PERM OCCLUSION/EMBOLIZATION, PERCUT, BUDGET OFFICER N/A 04/22/2020 @TRANSCATHETER OCCLUSION/EMBOLIZATION FOR TUMOR DESTRUCTION performed by Ronda Garrison MD at [facility] There are no active non-hospital problems to display for this patient. Social History: Info obtained from chart & SW note as patient non-verbal with ETT on ventilatorcurrently. Lives in [place], [place]. Live in a tiny room @ a boarding home, no stove or refridgerator in his room, shared BR with other tenants @ home. He lives in ground floor room- no stairs. He uses public transport to get to store. Susanna lives in same building and reports he has multiple falls & doesn't always keep up with personal care Precautions/Special Considerations: EVD in place, RN to clamp for mobility Lines: ETT on vent, tube feeds with OGT, brewster, L anticubital IV, L A-line, L subclavian line, R IVlines, R wrist soft restraint Activity Orders: act as tolerated, up with assist Diet: NPO, tube feedings Mobility and Positioning Recommendations: ?? Pt. to utilize ICU bed into chair position with staff/nursing. Subjective: non-verbal/ETT on ventilator. Objective: Pt seen for evaluation today. Pain: no obvious signs Vital Signs: RJ=455 SpO2=98% BP= 121/44 Vent: PS/CPAP 5/10/30% Mental Status: sleepy, can open eyes briefly, awake and giving thumbs up or nodding to answer questions, following a few simple commands but mostly sleepy and requiring constant stimulation. Skin: multiple tatoos, EVD, L A-line, L subclavian line, R UE IV's Musculoskeletal: ROM: PROM WFL, no volitional mvt on L side Strength: flaccid L side, he's moving R side to simple commands: squeezing hand, gave thumbs up, held facecloth, lifting arm, kicked foot up, tapped R foot, lifted knee up(R LE) Bed Mobility: Supine > Sit: Moved ICU bed to full bed-chair position using bed controls, dependent x 2 to lifttowards HOB and reposition in sidelying with pillow supports @ end of session. Transfers: not able to stay aroused long enough to participate standing, anticipate max A due to poor sitting balance & L hemiparesis Gait: not evaluated today Balance: Sitting Static: poor-falling towards L , poor head control Sitting Dynamic: poor-dependent Standing Static: poor- difficulty sitting & L hemiparesis. Therex: Patient encouraged to wipe his face with facecloth: [id number] assist but he did hold cloth in R hand, he gave thumbs up with R thumb, he did squeeze R hand, kicked foot up((R)LAQ), tapped R foot, lifted knee up/R hip flexion. Education: patient has been educated on Role of therapy and needs reinforcement. Pt not too alert and wouldn't think he'll retain. Patient status, treatment, and mobility recommendations discussed with nursing. Assessment: Ollie Burnett Sr. was seen today for physical therapy evaluation. Patient presents intubated resting in ICU bed in L sidelying when I entered room, dependent for positioning and ICU bed moved into full bed-chair position, pt leaning towards his L with poor sitting balance requiring assist or positioning with pillow supports, pt not holding head up, required constant stimulation to stay awake otherwise would shut his eyes, he did nod his head yes a few times, he did give thumbs up Rhand, ETT so non-verbal, he's moving R side to commands but not L side-hemiparesis, dependent for positioning and all aspects of mobility currently. The pt would benefit from skilled therapy services while in the hospital to maximize functional abilities. Discharge Recommendations: Based on the current findings, Anticipated Discharge Disposition: inpatient rehabilitation facility, swing bed, half-way facility when medically ready for hospital discharge. Consult Recommendations: CM for d/c referrals Equipment needs: TBD @ rehab facility; ongoing Goals: To be achieved by 05-11-20: 1. Pt able to stay alert with eyes open for entire therapy session & follow commands. 2. Pt to demonstrate understanding of self-assist exercises (R side helping L). 3. Pt. to perform bed mobility with min A. 4. Pt able to hold his head up and turn head s><s with cues, scanning both sides, able to track. 5. Pt able to tolerated mechanical lift transfers bed >< chair or tolerate ICU bed-chair position with supports on his L. 6. Pt able to maintain midline sitting balance with R arm to lean on with CGA x 1. 7. Pt able to move sit >< stand with 2 person assist, ^ WB on L side to stimulate return. 8. Pt able to stand-pivot transfer with 2 assist. 9. Pt to propel wheelchair x 20 ft. using any limbs independently and with supervision and verbal cues for steering & scanning L. 10. Pt will tolerate progression towards upright with stable vital signs. Plan: Therapy Frequency: 2-4 times/wk for therapy including balance training, neuromuscular re-education, patient/family education, postural re-education, range of motion, strengthening, transfer training and wheelchair managment/propulsion training. Patient/family understand and agree with plan as stated above. 2017 PT Evaluation Code Rationale: ?? Diagnosis & Pertinent Co-Morbidities, personal factors, and present illness affecting Plan of Care: (see above); Additional personal factors or co- morbidities that impact plan: ?? Total # of Factors: 0 1-2 3+ x ?? Examination of body system impairments, functional limitations and behaviors, and/or participation restrictions. Addressing 1-2 elements Addressing 3 + elements Addressing 4 + elements x ?? Clinical presentation: See assessment above. Stable/Uncomplicated Evolving/Fluctuating Symptoms Unstable/Unpredictable x ?? Clinical decision making of high complexity based on pt's functional performance as outlined in this evaluation. Time IN / OUT: 10:45-11:25 Total Evaluation Minutes, Physical Therapy: 40(EV) LEONARD DELEON, PT Pager: [phone] Physical Therapy Inpatient Rehabilitation Department * Plan of Care - Emelina Valdez, IMPREGNATOR - 04/24/2020 11:00 AM EDT Speech-Language Pathology Contact Note Pt remains on ventilator support, IMPREGNATOR will monitor for appropriateness. Please page if needed sooner. Emelina Valdez MS, [facility]-IMPREGNATOR Inpatient Rehabilitation Medicine pager:# [phone] * Plan of Care - Alison Arevalo OT - 04/24/2020 10:45 AM EDT Occupational Therapy Evaluation Patient profile: Ollie Burnett Sr. is a 60 y.o. male admitted on 04/20/2020 with history of ETOH abuse, ? Ritalin use presents from OSH after being found down with right basal ganglia hemorrhage and extensive IVH leading to hydrocephalus s/p L EVD placement. Neuro exam worsened, not moving left arm, only withdraws left leg. CT obtained for neuroworsening showed no change. History reviewed. No pertinent past medical history. Past Surgical History: Procedure Laterality Date ??? PRO PERM OCCLUSION/EMBOLIZATION, PERCUT, BUDGET OFFICER N/A 04/22/2020 @TRANSCATHETER OCCLUSION/EMBOLIZATION FOR TUMOR DESTRUCTION performed by Ronda Garrison MD at [facility] Social History: Patient lives in a boarding home on the ground level with no WILLI. Home Setup: TBD DME: TBD Baseline ADL/Mobility: Pt was unable to provide details regarding social history or prior level of functioning secondary to somnolence. Precautions/Special Considerations: fall risk, up with assist, activity as tolerated, SBP <160, EVD (RN to clamp for activity), ventilator support, L hemiplegia Subjective: Somnolent - max cues to alert; Inconsistent head nodding Objective: Seen today for OT evaluation. Cognitive Status/Behavior: ?? Behavior / Mood: impaired task initiation and lethargic ?? Alert and oriented to: person ?? Follows commands: 1 step and 25% of the time ?? Attention: difficulty attending to task/directions and requires cues to redirect ?? Safety awareness: difficult to assess General Recommendations for Patients with Confusion: Orientation / Communication: - Provide visual (magnification devices, etc.) as needed - Provide hearing aids as needed - Utilize cues such as calendars and clocks - Keep the date on the whiteboard accurate - Encourage communication and re-orient patient frequently - Have familiar objects from patient's home present in the room - Attempt consistency in nursing staff - Provide a current copy of the newspaper - Non-verbal music if comforting - Restrict visitors to 2-3 at a time - Provide brief, clear instructions and direction, from one source at a time - Avoid elaborate details or explanation of event or circumstance - Allow frequent rests; - Daytime naps encouraged unless interferes with nighttime pattern -Environment: - Ambulate or mobilize patient early and often - Out of bed to chair with meals - Turn off TV if others are in the room - Ensure consistent cues for night / day cycle - Monitor frequency of bowel movements - Limit excess noise (staff, equipment, visitors at night, etc.) - Sleep hygiene (dim light at nighttime, bright during the day Vision & Perception: ?? difficult to assess Communication: non-verbal; Intubated and somnolent; inconsistent head nods and/or thumbs up Range of motion, strength, coordination: Hand dominance: right L hemiplegia; tone RUE Sensation: difficult to assess Activities of Daily Living: Self-feeding: Dependent Grooming: Dependent Dressing: Dependent Bathing: Dependent Toileting: Transfer: Dependent Hygiene: Dependent Functional Mobility: Supine to sit: Dependent Sit to stand: Dependent Ambulation: Dependent Stand to sit: Dependent Sit to supine: Dependent Balance: Sitting balance: Poor Standing balance: Not assessed Vitals: Ventilator PS/CPAP PEEP 5, PSV 10, FiO2 30% SpO2 98% Heart Rate 108 Blood Pressure 121/44 Pain: Difficult to assess. No overt signs of pain. Skin: at high risk for skin breakdown Education: patient have been educated on Role of occupational therapy/rehabilitation, Transfers, ADL, Exercise, Positioning, Safety, Precautions/Protocol, Balance, Recommendations and Discharge planning and needs reinforcement. for understanding. Patient status, treatment, and mobility recommendations discussed with nursing. Assessment: Pt has been seen for occupational therapy evaluation. Ollie Ceja Hortencia Gutierres. presents with the following performance skill deficits and client factors: decreased activity tolerance, decreasedflexibility/ROM, decreased strength, decreased sitting/standing balance, cognitive deficits, decreased motor control, decreased postural control, deconditioning and compromised mobility status. Theseperformance deficits have led to activity limitations and participation restrictions in the following areas of occupation: dressing, bathing, grooming, toileting, self-feeding, transfers/mobility andcommunity mobility. Pt presented intubated and intermittently able follow simple single step instruction such as thumbs up, nodding, or use of RUE in 1/4 trials. Full bed chair was initiated to increase alertness. He was provided hand over hand assist for washing face, but Pt's participation was limited by lethargy. Physical assist needed for L head turn. Recommend inpatient rehab placement upon discharge for continued skilled therapy to reach functional goals. Pt would benefit from further inpatient OT interventions to address performance deficits and maximize participation and independence with occupations of daily living. Equipment needs at discharge: TBD Anticipated Discharge Disposition: inpatient rehabilitation facility Other Recommendations: ?? Utilize upright chair position using bed features or transfer to recliner chair as appropriate with mechanical lift ?? Encourage participation in ADL's by providing verbal cues and physical assist as needed Other Recommendations: No other consults recommended at this time Goals: To be achieved by May 24, 2020. Pt will effectively utilize compensatory strategies to achieve orientation x4 with min assist. Pt will maintain attention during simple tasks for >5 minutes with <3 verbal cues. Pt will be able to consistently track/scan to the L to locate items for self care task with <3 verbal cues. Pt will complete 1 grooming task with min assist and min cues. Pt will demonstrate fair seated balance at EOB for participation in self care tasks. Pt will participate in UE strength/ROM/coordination exercises as appropriate for improved participation in daily tasks. Plan: OT: Therapy Frequency: 2-4 times/wk Planned OT interventions: Role of occupational therapy/rehabilitation, Transfers, Assistive device/technique, Adaptive equipment training, ADL, Exercise, Breathing exercises, Positioning, Safety, Precautions/Protocol, Functional Mobility, Activity pacing/Energy conservation, Balance, Recommendations, Family training and Discharge planning. Total Evaluation Minutes, Occupational Therapy: 40 2016 OT Evaluation Code Rationale: ?? Diagnosis & Pertinent Co-Morbidities affecting Plan of Care: see PMHx ?? Occupational Profile & Client History: Brief Expanded Extensive X ?? Assessment of Occupational Performance: 1-3 performance deficits 3-5 performance deficits 5 + performance deficits X ?? Clinical Decision Making: Low Moderate High X Clinical decision making of high complexity using standardized patient assessment instrument and measurable assessment of functional outcome. Pager: [phone] Alison Arevalo OT 04/25/2020 Occupational Therapy Rehabilitation Department * Plan of Care - Arden Michaud RN - 04/24/2020 4:01 AM EDT Problem: Skin Integrity Impairment, Risk/Actual (Adult) Goal: Identify Related Risk Factors and Signs and Symptoms Related risk factors and signs and symptoms are identified upon initiation of Human Response Clinical Practice Guideline (CPG) Outcome: Ongoing (Interventions Implemented as Appropriate) 04/22/20 0742 Skin Integrity Impairment, Risk/Actual Skin Integrity Impairment, Risk/Actual: Related Risk Factors age extremes Signs and Symptoms (Skin Integrity Impairment) edema Goal: Skin Integrity/Wound Healing Patient will demonstrate the desired outcomes by discharge/transition of care. Outcome: Ongoing (Interventions Implemented as Appropriate) 04/22/20 0742 Skin Integrity Impairment, Risk/Actual (Adult) Skin Integrity/Wound Healing making progress toward outcome Problem: Patient Care Overview Goal: Plan of Care Review Outcome: Ongoing (Interventions Implemented as Appropriate) 04/23/20 0547 04/23/201999 Coping/Psychosocial Plan Of Care Reviewed With -- patient Plan of Care Review Progress no change -- OUTCOME EVALUATION NOTE: OUTCOME SUMMARY: Pt continues to be able to follow commands overnight. He has 5/5 strengths on his right upper and lower extremities. His upper and lower left extremities have been a flicker of movement consistently.He has been able to follow commands. Pupils have been equal,round,reactive overnight. VS stable with minimal nicardipine in order to keep SBP's below 160 per goal. MRI was completed overnight. Pt continues to have copious secreations and a strong cough. Pt continues to be ventilated at 21% Fio2. Nosedation has been infused overnight. Due to increased temp and secreations. Pip/tazo ordered along with chest xray. PLAN MOVING FORWARD: Plan to extubate pt in the am. Continue to monitor tempertures closely for increase fevers. MonitorEVD drainage closely as well as ICP's. Follow up with team for further treatment. Maintain safety of pt. INDIVIDUALIZED FALL PREVENTION INTERVENTIONS: Patient-specific fall risk factors per assessment: [current deficits]: bedrest Assistance [level of assistance required for transfers and ambulation]: 2 assist with all reposition Supervision [direct monitoring required during toileting and ADLs]: 1-2 assist with all ADL's as needed Surveillance [continuous indirect monitoring]: Telemetry, Masimo, hourly rounding. Hourly neuro checks Patient-specific fall prevention interventions for sensory deficits provided, if applicable: [X] Yes CPG GOAL OUTCOME EVALUATION: Goal: Individualization & Mutuality Outcome: Ongoing (Interventions Implemented as Appropriate) 04/22/20 0742 Mutuality/Individual Preferences What Anxieties, Fears or Concerns Do You Have About Your Health or Care? ANTHONY What Questions Do You Have About Your Health or Care? ANTHONY What Information Would Help Us Give You More Personalized Care? ANTHONY Goal: Fall Prevention-Safe Patient Handling Outcome: Ongoing (Interventions Implemented as Appropriate) 04/23/20199904/24/20199 Matias Fall Risk History of Falling 25 -- Secondary Diagnosis 15 -- Ambulatory Aids 0 -- Intravenous Therapy/Heparin/Saline Lock 20 -- Gait/Transferring 0 -- Mental Status 15 -- Score 75 -- OTHER Matias Fall Risk High -- Restraint Interventions Safety Promotion/Fall Prevention -- activity supervised;fall prevention program maintained;muscle strengthening facilitated;nonskid shoes/slippers when out of bed;safety round/check completed Positioning Body Position -- lower extremity elevated, left;lower extremity elevated, right;upper extremity elevated, left;upper extremity elevated, right;weight shift assistance provided Activity Activity Type -- bedrest Activity Assistance Provided -- assistance, 2 people Goal: Infection Control Outcome: Ongoing (Interventions Implemented as Appropriate) 04/23/20199904/24/20199 Safety Interventions Isolation Precautions -- standard precautions maintained Infection Prevention -- environmental surveillance performed;equipment surfaces disinfected;personal protective equipment utilized;rest/sleep promoted;single patient room provided Coping Strategies Supportive Measures active listening utilized;decision-making supported;goal setting facilitated;positive reinforcement provided;problem solving facilitated;relaxation techniques promoted;self-care encouraged;self-reflection promoted;self-responsibility promoted;verbalization of feelings encouraged-- Goal: Discharge Needs Assessment Outcome: Ongoing (Interventions Implemented as Appropriate) 04/22/20 0741 04/24/20 0249 Discharge Needs Assessment Concerns To Be Addressed -- adjustment to diagnosis/illness concerns;basic needs concerns;cognitive/perceptual concerns;compliance issue concerns;coping/stress concerns;decision making concerns;discharge planning concerns;employment/school concerns;financial/insurance concerns;home safety concerns;medication concerns Readmission Within The Last 30 Days -- no previous admission in last 30 days Provider Choice List(s) Given -- yes Current Discharge Risk lives alone -- Goal: Interdisciplinary Rounds/Family Conf Outcome: Ongoing (Interventions Implemented as Appropriate) 04/23/20 0547 Interdisciplinary Rounds/Family Conf Participants patient;advanced practice nurse;nursing Problem: Stroke (Hemorrhagic) (Adult) Goal: Signs and Symptoms of Listed Potential Problems Will be Absent, Minimized or Managed (Stroke) Signs and symptoms of listed potential problems will be absent, minimized or managed by discharge/transition of care (reference Stroke (Hemorrhagic) (Adult) CPG). Outcome: Ongoing (Interventions Implemented as Appropriate) 04/23/20 0900 Stroke (Hemorrhagic) Problems Assessed (Stroke (Hemorrhagic)) all Problems Present (Stroke (Hemorrhagic)) acute neurologic deterioration * Consult Note - Hussein Carnes [facility] - 04/24/2020 3:50 AM EDT Clinical Pharmacist Note-Vanc Ollie Burnett Sr. [id number] 1960 Ollie Burnett Sr. is a 60 y.o. male who is starting antibiotic therapy which includes intravenous vancomycin. Today is day 1 of treatment. Based on a review of the patient???s chart and/or conversation with the patient???s providers vancomycin is being used for empiric coverage with a targeted goal of 15 - 20 mcg/mL. The following Pharmacokinetic data has been evaluated: Wt Readings from Last 1 Encounters: 04/23/20 65.6 kg (144 lb 10 oz) Ht Readings from Last 1 Encounters: 04/20/20 168 cm (5' 6.14) No results found for: BRYN Creatinine (mg/dL) Date Value 04/24/2020 0.45 (L) Estimated Creatinine Clearance: 156.3 mL/min (A) (based on SCr of 0.45 mg/dL (L)). (Cockcroft &Gault calculation) After a review of this information the following pharmacokinetic parameters have been estimated: Half-Life (T1/2) = 5.3 hours Elimination rate (Ke) = 0.1289 hr-1 Volume of distribution (Vd) = 46 Liters Dosing recommendations: ??? Based on this information a dose of 1,500 mg NOW, followed by 1,000 mg every 8 hours, to start at 12:00 (time) on 04/24/2020 should achieve an estimated trough level of 15 - 20 mcg/mL. Monitoring recommendations: ??? A new steady state level should be achieved after 4 half-lives. I suggest rechecking a vancomycin trough level (30 minutes prior to a scheduled dose) at 11:30 (time) on 04/25/2020. We will continue to monitor the patient as long as he/she remains on vancomycin therapy. Please watch SCr, BUN and fluid status closely. Please page the care area pharmacist with any questions you may have. Alternately, during off-hours you may call [phone] to contact a pharmacist. HUSSEIN CARNES RPH * Plan of Care - Tammi Alexander RN - 04/23/2020 7:31 PM EDT Problem: Patient Care Overview Goal: Plan of Care Review Outcome: Ongoing (Interventions Implemented as Appropriate) OUTCOME EVALUATION NOTE: OUTCOME SUMMARY: 1600-Episode of air in EVD tubing, NCCU team and Neurosurgery notified and at bedside. Lethargic to alert, PERRL, pt remains intubated, Tmax 38.6, blood/sputum/CSF/urine cultures sent, EVD open @ 10, ICP 5-10, SBP<160, on/off nicardipine throughout shift (see MAR), 500cc bolus [id number] for low MAP, daughter updated by phone. PLAN MOVING FORWARD: Monitor Neuro MRI Manage EVD INDIVIDUALIZED FALL PREVENTION INTERVENTIONS: Patient-specific fall risk factors per assessment: N/A Assistance: Bedrest w/ Q2hr turns Supervision: Hands on Surveillance: Bed locked in low position, call burnett within reach, purposeful hourly rounding, clutter free environment, bed alarm on Patient-specific fall prevention interventions for sensory deficits provided: N/A CPG GOAL OUTCOME EVALUATION: Continue care plan as documented. * Plan of Care - Leonard Deleon, PT - 04/23/2020 1:27 PM EDT Physical Therapy Contact note I spoke with OT who spoke with GRAIN ELEVATOR MAN in room, GRAIN ELEVATOR MAN having difficulty arousing patient, team reports earlier he was responsive and passed SBT, possible extubation today. Plan to monitor and if appropriate tomorrow will plan to evaluate. Hospital day #3 after being found down with page HURT and found to have IVH, hydrocephalus: EVD placed. DSA yesterday didn't show any aneurysm or AVM and head CT stable, vEEG not showing seizures, on phenobarbital for ETOH withdrawals. Appreciate referral, continue to monitor his status, once he's able to participate will intervene. Pager #[phone] * Initial Assessments - Rachele Cole MSW - 04/23/2020 10:46 AM EDT Office of Care Management Initial Assessment KYE Kiran reviewed record and discussed patient with Care Team. Source of Information: Patient's daughter, Susanna [phone] Introduced self/reviewed role; services accepted. Reason for Hospitalization: Reason for Admission as Stated by Patient: sedated Per Neurosurgery H&P: abuse, ? Ritalin use presents after being found down with right basal ganglia hemorrhage and extensive IVH. His ventricles are large and there is evidence of transependymal flow. On exam, he is intubated, unresponsive, but has intact brainstem reflexes History reviewed. No pertinent past medical history. Hospitalizations Within the Past 30 Days: no recent admissions Anticipated Length Of Stay (If known): Expected Length of Hospitalization: 2 weeks or more Current Decision-Making Capacity: intubated and sedated Advance Care Planning: No AD on file at time of assessment. Patient has 5 adult children who would be surrogate decision makers. Susanna reports she has family consensus to act as the primary contact Current Coping/Education/Information Needs: Susanna was wondering what patient's current brain function is. VISUAL TRAINING AIDE encouraged her to ask the team this afternoon when she talks to them Current Functional Ability: intubated, sedated. Passed SBT Functional Status Prior to Admission: Independent but struggling with ADLs/IADLs. Susanna reports patient does not use any DME, but has had multiple falls his feet don't work well and that he does not keep up with his personal care He is independent in using public transport to get to the store. Home Environment: lives in a tiny room in a boarding home. No stove/fridge in room. Shared bathroom with other tenants. Ground floor room- no stairs Social & Family Supports/Community Resources: Susanna reports patient has a total of 6 children(5 are adult and the youngest, a 6 mo, was placed in an open adoption). Susanna lives in the same building as patient and is his main support Behavioral Health History: Susanna feels that patient may have some depression/anxiety but he has never acknowledged it or been treated for it Substance Use/Abuse: Susanna acknowledges that patient abuses alcohol. She reports he did quit in November for a few months, but has recently been drinking again She reports he drinks to the point of intoxication and often falls. She reports he smokes 2 ppd and occasionally smokes marijuana. She reports sometimes he hangs out with bad influences and that's when he'll snort ritalin or percocet Other Pertinent/Service Specific Information: Susanna reports patient did recently establish care with a PCP after many years of absence Health/Prescription Coverage: Primary Insurance: MEDICARE Secondary Insurance: MEDICAID [place] Prescription Coverage: yes Preferred Pharmacy: [facility] Other: Primary Care Provider: None None Patient/Caregiver Goals of Treatment: Wake up and get better Potential Needs for Transition of Care: Rehab/SNF: yes, no choices obtained currently Home Health: no DME: no Dialysis: no Community Resources: ? Substance abuse resources (possible) and LTC Medicaid Transportation: TBD Other: Anticipated Barriers to Discharge/Special Considerations: Multiple potential barriers including substance abuse, lack of formal POA; basic Medicaid only, andunsafe functional status prior to admission Assessment: 60 yom with active alcohol abuse residing in a boarding home currently intubated and sedated after large stroke. Daughter acting as surrogate. Patient will likely need rehab Plan: Discuss prognosis with NCC and NS Teams to determine if it is anticipated that patient will need a Guardian Have RN-CM follow up with Susanna as patient improves to discuss rehab options Assess psychosocial needs once patient awake (referral for BIT, LT Medicaid, etc) A member of the Care Management team will continue to monitor progress, follow for continuity of care and assist with transition of care planning. KYE Kiran Pager: [phone] * Plan of Care - Emelina Valdez, IMPREGNATOR - 04/23/2020 9:09 AM EDT Speech-Language Pathology Contact Note Pt remains on ventilator support, passed SBT again this AM. IMPREGNATOR will hold assessment until successful extubation, please page if needed sooner. Emelina Valdez MS, [facility]-IMPREGNATOR Inpatient Rehabilitation Medicine pager:# [phone] * Plan of Care - Pratima Ward RN - 04/23/2020 5:59 AM EDT Problem: Patient Care Overview Goal: Plan of Care Review Outcome: Ongoing (Interventions Implemented as Appropriate) 04/23/20 0547 Coping/Psychosocial Plan Of Care Reviewed With patient Plan of Care Review Progress no change OUTCOME EVALUATION NOTE: OUTCOME SUMMARY: Neuro checks remained unchanged from when I first arrived to care for the patient. NCC provider Eddie Seduardo at the bedside many times overnight to evaluate neuro status of the patient. Phenobarb held overnight and no improvement of checks noted. EEG remained free of seizure activity. EVD remained patent and ICP remained WDL. Pt passed SBT this AM. Levo stopped for BP and no additional meds givento meet SBP goals. Pt did have some occasional spiked in BP when stimulated but was able to come down within a few minutes of the stimulation stopping. Tube feeds restarted at goal overnight, noted to be tolerating well at this time. Brewster remained in place and patent with adequate urine output noted. Right radial site remained CDI with no issues noted. Labs send and K+ and Phos being replaced. PLAN MOVING FORWARD: MRI to be done this morning due to non-improving neuro assessment. Continue to monitor ICP/EVD output hourly. Recheck K+ after replacements completed. INDIVIDUALIZED FALL PREVENTION INTERVENTIONS: Patient-specific fall risk factors per assessment: [current deficits]: Weakness, confusion, medications Assistance [level of assistance required for transfers and ambulation]: Full cares Supervision [direct monitoring required during toileting and ADLs]: Full cares Surveillance [continuous indirect monitoring]: Hourly rounding, continuous EEG monitoring, continuous heart monitoring Patient-specific fall prevention interventions for sensory deficits provided, if applicable: [X] Yes Goal: Fall Prevention-Safe Patient Handling Outcome: Ongoing (Interventions Implemented as Appropriate) 04/22/20199904/23/20399 Matias Fall Risk History of Falling 25 -- Secondary Diagnosis 15 -- Ambulatory Aids 0 -- Intravenous Therapy/Heparin/Saline Lock 20 -- Gait/Transferring 0 -- Mental Status 15 -- Score 75 -- OTHER Matias Fall Risk High -- Restraint Interventions Safety Promotion/Fall Prevention -- activity supervised;fall prevention program maintained Positioning Body Position -- neutral body alignment;supine;weight shift assistance provided;with 2-person assist Activity Activity Type -- bedrest Activity Assistance Provided -- assistance, 2 people Goal: Infection Control Outcome: Ongoing (Interventions Implemented as Appropriate) 04/22/20199904/23/20399 Safety Interventions Isolation Precautions -- standard precautions maintained Infection Prevention -- environmental surveillance performed;rest/sleep promoted;single patient room provided Coping Strategies Supportive Measures positive reinforcement provided -- Goal: Discharge Needs Assessment Outcome: Ongoing (Interventions Implemented as Appropriate) 04/23/20 05 Discharge Needs Assessment Concerns To Be Addressed care coordination/care conferences Goal: Interdisciplinary Rounds/Family Conf Outcome: Ongoing (Interventions Implemented as Appropriate) 04/23/20 05 Interdisciplinary Rounds/Family Conf Participants patient;advanced practice nurse;nursing * Plan of Care - Zane Gaviria RN - 04/22/2020 7:03 PM EDT Problem: Patient Care Overview Goal: Plan of Care Review Outcome: Ongoing (Interventions Implemented as Appropriate) 04/22/20 4327 Coping/Psychosocial Plan Of Care Reviewed With patient Plan of Care Review Progress progress toward functional goals as expected OUTCOME EVALUATION NOTE: OUTCOME SUMMARY: Pt went to IR for DSA, L radial site CDI with TR band removed per protocol with no issues of bleeding, when he returned sedation was weaned off, pt left side was no responding to commands. Pt continued to have neuro changes, and a stat head CT was done. No changes on the CT. Pt also started on the withdrawal protocol and al thought pt was not scoring, team wanted the doses of phenobarbital to be given due to seizure risk. Night NCCT wants to hold the 1900 dose. EVD output went from red to pink throughout the day. EVD output 25-6 every 2 hours, ICP 6-13. Pt on nicardipine at the start of the shift. Post IR required levo, after sedation weaned off, pt required lio again, then once phenobarbital doses where given, levo was restarted @ 2. Pt incontinent of urine, skin grossly intact. PLAN MOVING FORWARD: Monitor neuro q2 Restart TF overnight. * Plan of Care - Leonard Deleon PT - 04/22/2020 1:17 PM EDT Physical Therapy Contact note 04/22/20 1010 Rehab Evaluation Document Type contact Total Evaluation Minutes, Physical Therapy 0 Evaluation Not Performed patient unavailable for evaluation Evaluation Not Performed Comment Patient off unit for IR, possible extubation later today, plan to f/u tomorrow Referral received, plan to evaluate once patient appropriate & available. * Brief Op Note - Gustavo Luevano MD - 04/22/2020 11:04 AM EDT INTERVENTIONAL RADIOLOGY BRIEF PROCEDURE NOTE Patient Name: Ollie Burnett . : 1960 Case Date: 04/22/2020 Operators: Attending: Ronda Garrison MD All Staff: Gustavo Luevano MD Staff No Staff Documented Post-operative diagnosis/Indication: ICH Name of Procedure Performed: Diagnostic cerebral angiogram Description of the procedure: R radial access (5fr) Angiography of L ICA, L ECA, R ICA, R ECA, R vert TR band closure Findings of the procedure: No aneurysm or vascular malformation EBL: <10 mL Specimens: None Complications: No immediate Plan/Disposition: Return to ICU for ICH care. TR band removal per protocol FULL PROCEDURE NOTE TO FOLLOW IN IMAGE REPORT * Plan of Care - Emelina Valdez IMPREGNATOR - 04/22/2020 9:12 AM EDT Speech-Language Pathology Contact Note Consult received, chart reviewed, pt remains on ventilator support and apparently scheduled for procedure in IR. Passed SBT this AM. IMPREGNATOR will monitor for appropriateness, please page if needed sooner. Emelina Valdez MS, [facility]-IMPREGNATOR Inpatient Rehabilitation Medicine pager:# [phone] * Plan of Care - Jayda Davis RN - 04/22/2020 7:46 AM EDT Problem: Patient Care Overview Goal: Plan of Care Review Outcome: Ongoing (Interventions Implemented as Appropriate) 04/21/20 1654 04/21/201999 Coping/Psychosocial Plan Of Care Reviewed With -- patient Plan of Care Review Progress improving -- OUTCOME EVALUATION NOTE: OUTCOME SUMMARY: Pt started on fentanyl for pain management. Propofol paused at 0545, able to tolerate ETT without sedation. Passed SBT Nicardipine(2.5-5mg) to maintain SBP <140 Incontinent of urine PLAN MOVING FORWARD: Q1 neuro, SBP<140 INDIVIDUALIZED FALL PREVENTION INTERVENTIONS: Patient-specific fall risk factors per assessment: [current deficits]: weakness Assistance [level of assistance required for transfers and ambulation]: x2 turn and reposition Supervision [direct monitoring required during toileting and ADLs]: Hands on Surveillance [continuous indirect monitoring]: Tele, masimo, purposeful rounding Patient-specific fall prevention interventions for sensory deficits provided, if applicable: [X] Yes CPG GOAL OUTCOME EVALUATION: * Plan of Care - Samuel Gómez RN - 04/21/2020 5:07 PM EDT Problem: Patient Care Overview Goal: Plan of Care Review Outcome: Ongoing (Interventions Implemented as Appropriate) 04/21/20 1654 Coping/Psychosocial Plan Of Care Reviewed With patient;family Plan of Care Review Progress improving OUTCOME EVALUATION NOTE: OUTCOME SUMMARY: Neuro: Following commands, strength R>L. Pupils reactive to light. Will give thumbs up w/ RUE, squeeze hands w/ BUE, will move toes to commands on BLE. ICPs 8-15, drainage clear/pink. Open at 10cm H2O per order. Some dried drainage noted around dressing following MRI, NSGY aware, drainage outlined. Brewster discontinued on return from MRI. Adequate UOP. Afebrile. Prop gtt @ 20, NS gtt @ 100. cEEG remains in place. TF started at 1600, running at 10ml/hr. MRI completed. PLAN MOVING FORWARD: Q1h neuro and vital signs Possible extubation tomorrow Bladder scan at 1999 * Consult Note - Fanny Paz I - 04/21/2020 2:02 PM EDT Neurology Vascular Consult Note Patient name: Ollie Burnett Sr. Date of : 1960 PCP: None Onset of symptoms (if witnessed): 04/20 Last known well: 04/20 at 1400 Stroke Alert Activated: NA Neurology at Bedside: NA Was IV tPA given greater than 60 minutes after time of hospital arrival: No CC: Intraparenchymal Hemorrhage HPI: Ollie Burnett Sr. is a 60 y.o. man with a PMH of EtOH abuse and hemochromatosis who is admitted toNCCU for spontaneous ICH. Neurology has been consulted for additional management and workup of hemorrhage. Patient was in his usual state of health at 1400 on 04/20. He was later found down by his afterreportedly snorting Ritalin. He was unresponsive but initially maintaining airway. On arrival at OSH, he had a poor neuro exam and was intubated for airway protection. CT head showed a right caudate ICH with intraventricular extension. EVD was placed emergently in the ED and he was admitted to NCCU for close monitoring. Since arriving the NCCU and weaning on sedation, he is predominantly moving his RUE on command and wiggles toes on command bilaterally. His LUE does localize but not a vigorously. Rapid COVID was negative. Current Medications: Scheduled Meds: ??? multivitamin with minerals 1 tablet Oral Daily ??? thiamine 100 mg Intravenous Daily ??? folic acid 1 mg Intravenous Daily ??? sodium chloride 0.9 % (flush) 5 mL Intravenous BID ??? senna-docusate 2 tablet Oral BID ??? chlorhexidine 15 mL Oral BID ??? famotidine 20 mg Intravenous 2 times per day ??? levETIRAcetam 500 mg Intravenous 2 times per day Continuous Infusions: ??? tube feeding diet ??? niCARdipine Stopped (04/21/20 0904) ??? sodium chloride 0.9% 100 mL/hr (04/21/20 0855) ??? propofoL 20 mcg/kg/min (04/21/20 1211) PRN Meds:.sodium chloride 0.9 % (flush), lidocaine, labetalol, enalaprilat, magnesium hydroxide, bisacodyL, acetaminophen OR acetaminophen OR acetaminophen, potassium chloride in water ORpotassium chloride in water OR potassium chloride in water, fentaNYL (PF), polyethylene glycol ( MIRALAX)oral powder Past Medical & Surgical History: History reviewed. No pertinent past medical history. History reviewed. No pertinent surgical history. Home Medications: No current facility-administered medications on file prior to encounter. Current Outpatient Medications on File Prior to Encounter Medication Sig Dispense Refill ??? hydroCODone-acetaminophen (VICODIN) 5-500 mg per tablet 1-2 Tablet(s), PO, Q8H ??? acetaminophen (TYLENOL) 325 mg tablet 325m-2 Tablet(s), PO, Q4-6H,PRN ??? silver sulfADIAZINE (SILVADENE) 1 % cream 1 Appl(s), Top, BID Allergy: No Known Allergies Family History: History reviewed. No pertinent family history. Social History: Unable to confirm due to mental status Social History Socioeconomic History ??? Marital status: Single Spouse name: Not on file ??? Number of children: Not on file ??? Years of education: Not on file ??? Highest education level: Not on file Occupational History ??? Not on file Social Needs ??? Financial resource strain: Not on file ??? Food insecurity Worry: Not on file Inability: Not on file ??? Transportation needs Medical: Not on file Non-medical: Not on file Tobacco Use ??? Smoking status: Not on file Substance and Sexual Activity ??? Alcohol use: Not on file ??? Drug use: Not on file ??? Sexual activity: Not on file Lifestyle ??? Physical activity Days per week: Not on file Minutes per session: Not on file ??? Stress: Not on file Relationships ??? Social connections Talks on phone: Not on file Gets together: Not on file Attends roman catholic service: Not on file Active member of club or organization: Not on file Attends meetings of clubs or organizations: Not on file Relationship status: Not on file ??? Intimate partner violence Fear of current or ex partner: Not on file Emotionally abused: Not on file Physically abused: Not on file Forced sexual activity: Not on file Other Topics Concern ??? Not on file Social History Narrative ??? Not on file Review of systems: Unable to assess due to mental status Physical Exam: Vitals: Temp: [36.4 ??C (97.5 ??F)-37.3 ??C (99.1 ??F)] Heart Rate: [72-89] Resp: [12-19] BP: (94-137)/(51-72) SpO2: [97 %-100 %] Heart Rate from SpO2: [72 bpm-94 bpm] Gen: Patient of apparent stated age, well nourished, well developed, awake, alert, NAD Neck: Supple, no meningismus Ext: No edema. No bony deformity Neuro Exam: MS: Awake, eyes closed Follows simple commands on RUE CN: PERRL, EOMI, visual lazaro full + VOR, + corneals No facial asymmetry Hearing intact to voice + cough, + gag Motor: Normal bulk and tone RUE: squeezes hand on command, antigravity purposeful strength LUE: withdraws from noxious stimuli, localizes RLE: withdraws from noxious stimuli, localizes LLE: antigravity purposeful strength Sensation: withdraws from noxious stimuli throughout Reflexes: DTRs 2+ R, 2+ L Biceps 2+ R, 2+ L Brachioradialis 2+ R, 2+ L Triceps 2+ R, 2+ L Patellar 2+ R, 2+ L Achilles tendon Toes - R down, L down Coordination: Unable to assess, no tremor Gait: Unable to assess NIH Stroke Scale: (bold applicable choices) NIH Stroke Scale at Initial Evaluation: 1.a. Level of consciousness: 0-Alert 1-Not alert, but arousable with minimal stimulation 2-Not alert, requires repeat stimulation to attend 3-Coma 1.b. Ask patient the month and their age: 0-Answers both correctly 1-Answers one correctly 2-Both incorrect 1.c. Ask patient to open and close eyes: 0-Obeys both correctly 1-Obeys one correctly 2-Both incorrect 2. Best gaze (horizontal eye movement): 0-Normal 1-Partial gaze palsy 2-Forced deviation 3. Visual field testin-No visual field loss 1-Partial hemianopia 2-Complete hemianopia 3-Bilateral hemianopia (blind including cortical blindness) 4. Facial paresis (Ask patient to show teeth or raise eyebrows and close eyes tightly): 0-Normal symmetrical movement 1-Minor paralysis (flattened nasolabial fold, asymmetry on smiling) 2-Partial paralysis (total or near paralysis of lower face) 3-Complete paralysis of one or both sides (absence of facial movement in the upper and lower face) 5. Motor function right arm: 0-Normal (extends arm 90 degrees for 10 seconds without drift) 1-Drift 2-Some effort against gravity 3-No effort against gravity 4-No movement UT-Untestable (Joint fused or limb amputated) 5. Motor function- left arm: 0-Normal (extends arm 90 degrees for 10 seconds without drift) 1-Drift 2-Some effort against gravity 3-No effort against gravity (but baseline) 4-No movement UT-Untestable (Joint fused or limb amputated) 6. Motor function right le-Normal (extends leg 30 degrees for 5 seconds without drift) 1-Drift 2-Some effort against gravity 3-No effort against gravity 4-No movement UT-Untestable (Joint fused or limb amputated) 6. Motor function-left le-Normal (extends leg 30 degrees for 5 seconds without drift) 1-Drift 2-Some effort against gravity 3-No effort against gravity 4-No movement UT-Untestable (Joint fused or limb amputated) 7. Limb ataxia: 0-No ataxia 1-Present in one limb 2-Present in two limbs 8. Sensory (Use pinprick to test arms, legs, trunk and face compare side to side): 0-Normal 1-Mild to moderate decrease in sensation 2-Severe to total sensory loss 9. Best language (describe picture, name items, read sentences): 0-No aphasia 1-Mild to moderate aphasia 2-Severe aphasia 3-Mute 10. Dysarthria (read several words): 0-Normal articulation 1-Mild to moderate slurring of words 2-Near unintelligible or unable to speak UT-Intubated or other physical barrier 11. Extinction and inattention: 0-Normal 1-Inattention or extinction to bilateral simultaneous in one of the sensory modalities 2-Severe tae-inattention or tae-inattention to more than one modality TOTAL SCORE: 13 ICH Score: GCS 2: 3-4 1: 5-12 0: 13-15 ICH volume 1: > 30 cm3 0: < 30 cm3 Interventricular hemorrhage 1: yes 0: no Infratentorial origin of ICH 1: yes 0: no Age 1: > 80 years 0: < 80 years TOTAL 3 Interpretation: ICH score 0 1 2 3 4 5 6 30 day mortality No mortality 13% 26% 72% 97% 100% Estimated 100% Labs: Recent Results (from the past 24 hour(s)) COVID-19 PCR Result Value Ref Range Rapid SARS-CoV-2 RNA Not Detected Not Detected SARS-CoV-2 Source [facility] [employer]IST Swab Urinalysis with reflex Culture Result Value Ref Range Glucose UA Negative Negative mg/dL Protein UA Negative Negative mg/dL Bilirubin UA Negative Negative mg/dL Urobilinogen UA Normal Normal mg/dL pH UA 5.5 5.0 - 8.0 Blood UA Large (A) Negative mg/dL Ketones UA 40 (A) Negative mg/dL Nitrite UA Negative Negative Leukocytes UA Negative Negative mcL Appearance UA Clear Clear Spec [place] UA >=1.030 (A) 1.006 - 1.030 Color UA Yellow Yellow Culture Reflexed No Urinalysis Microscopic Exam Result Value Ref Range RBC UA 48 (H) 0 - 3 /HPF WBC UA 1 0 - 3 /HPF Squam Epith UA 1 <=4 /HPF BLOOD GAS 2 VENOUS Result Value Ref Range pH Michael 7.29 (CRIT) 7.32 - 7.42 pCO2 Michael 47 41 - 51 mmHg pO2 Michael 129 (H) 25 - 40 mmHg HCO3 Michael 22.1 mmol/L BE Michael -4.5 mmol/L Hgb Blood Gas 13.4 (L) 13.7 - 16.5 gm/dL O2HB Michael 96.6 % COHB Michael 1.0 % METHB Michael 0.3 <=1.5 % Na Whole Blood 134 (L) 135 - 145 mmol/L K Whole Blood 4.0 3.5 - 5.0 mmol/L ICa Whole Blood 1.10 (L) 1.15 - 1.33 mmol/L CL Whole Blood 107 98 - 107 mmol/L Gluc Whole Bld 86 65 - 199 mg/dL Lactate WB 1.2 0.5 - 2.2 mmol/L BGas Source Venous Rapid Drug Screen, Urine (TIM Request) Result Value Ref Range TIM Conf Requested No TIM Requested See Comment Rapid Drug Screen w/o Confirmation, Urine Result Value Ref Range U Barbiturates Screen None Detected None Detected U Benzodiazepines Screen Presumptive Pos (A) None Detected U Cocaine Screen None Detected None Detected U Methadone Metabolites Screen None Detected None Detected U Opiate Screen None Detected None Detected U Cannabinoid Screen Presumptive Pos (A) None Detected U Oxycodone Screen Presumptive Pos (A) None Detected U Buprenorphine Screen None Detected None Detected U Fentanyl Screen Presumptive Pos (A) None Detected U Tricyclics Screen None Detected None Detected U Ethanol Screen None Detected None Detected U Amphetamines Screen None Detected None Detected U Adulterants Screen None Detected None Detected Basic Metabolic Panel (non-fasting) Result Value Ref Range Glucose Lvl 92 65 - 199 mg/dL BUN 10 10 - 20 mg/dL Creatinine 0.51 (L) 0.80 - 1.50 mg/dL Sodium 138 135 - 145 mmol/L Potassium 4.1 3.5 - 5.0 mmol/L Chloride 104 98 - 107 mmol/L CO2 21 (L) 22 - 31 mmol/L Anion Gap 13 5 - 15 mmol/L Calcium 7.4 (L) 8.5 - 10.5 mg/dL eGFR 116 >=60 mL/min/1.73 m?? eGFR 134 >=60 mL/min/1.73 m?? Magnesium Result Value Ref Range Magnesium 0.77 0.69 - 1.07 mmol/L Phosphorus Result Value Ref Range Phosphorus 3.3 2.5 - 4.5 mg/dL Prothrombin Time Result Value Ref Range PT 14.3 (H) 9.4 - 12.5 sec INR 1.2 APTT Result Value Ref Range PTT 28 25 - 37 sec Hepatic Function Panel Result Value Ref Range Total Protein 5.8 (L) 6.1 - 8.0 gm/dL Albumin 3.3 3.2 - 5.2 gm/dL AST 107 (H) 0 - 39 unit/L ALT 105 (H) 0 - 55 unit/L Alk Phos 53 40 - 130 unit/L Total Bilirubin 0.7 0.2 - 1.3 mg/dL Bili, Direct 0.3 0.0 - 0.3 mg/dL ABO/Rh Typing Result Value Ref Range ABORh Type AB Pos Antibody screen Result Value Ref Range Ab Screen Interp Negative Expires at 2359 on: 04/23/2020 Hemogram Result Value Ref Range WBC 5.3 4.0 - 9.5 x10(3)/mcL RBC 3.70 (L) 4.58 - 5.54 x10(6)/mcL Hemoglobin 12.5 (L) 13.7 - 16.5 gm/dL Hematocrit 36.5 (L) 40.5 - 48.5 % MCV 98.6 (H) 82.9 - 93.1 fL MCH 33.8 (H) 27.5 - 32.1 pg MCHC 34.2 32.0 - 35.7 gm/dL Platelets 133 (L) 145 - 357 x10(3)/mcL RDWSD 45.1 (H) 36.0 - 45.0 fL RDWCV 12.5 11.4 - 13.8 % MPV 9.2 7.6 - 12.9 fL nRBC % Auto 0.0 % nRBC Abs Auto 0.000 0.000 - 0.000 x10(3)/mcL Differential, Automated Result Value Ref Range Neutrophils % 75.8 % Neutr Abs (ANC) 4.01 1.70 - 6.10 x10(3)/mcL Lymphocytes % 18.9 % Lymphocytes Abs 1.0 0.9 - 3.2 x10(3)/mcL Monocytes % 4.7 % Monocyte Abs 0.2 (L) 0.3 - 0.9 x10(3)/mcL Eosinophils % 0.0 % Eosinophils Abs 0.0 0.0 - 0.4 x10(3)/mcL Basophils % 0.2 % Basophils Abs 0.0 0.0 - 0.1 x10(3)/mcL Immature Gran % 0.40 % Fide Gran Abs 0.02 0.00 - 0.04 x10(3)/mcL Gold Tube HOLD Result Value Ref Range Gold Hold Sample in lab. Lee Tube Hold Result Value Ref Range Lee Hold Sample in lab. ABORH Recheck Status Result Value Ref Range ABORH Type Recheck Completed Troponin Result Value Ref Range Troponin-T <0.01 0.00 - 0.00 ng/mL POCT Glucose Result Value Ref Range POC Glucose 87 65 - 199 mg/dL Basic Metabolic Panel (non-fasting) Result Value Ref Range Glucose Lvl 89 65 - 199 mg/dL BUN 9 (L) 10 - 20 mg/dL Creatinine 0.54 (L) 0.80 - 1.50 mg/dL Sodium 141 135 - 145 mmol/L Potassium 4.1 3.5 - 5.0 mmol/L Chloride 105 98 - 107 mmol/L CO2 22 22 - 31 mmol/L Anion Gap 14 5 - 15 mmol/L Calcium 8.1 (L) 8.5 - 10.5 mg/dL eGFR 113 >=60 mL/min/1.73 m?? eGFR 131 >=60 mL/min/1.73 m?? Magnesium Result Value Ref Range Magnesium 0.85 0.69 - 1.07 mmol/L Phosphorus Result Value Ref Range Phosphorus 3.9 2.5 - 4.5 mg/dL Hepatic Function Panel Result Value Ref Range Total Protein 6.6 6.1 - 8.0 gm/dL Albumin 3.5 3.2 - 5.2 gm/dL AST 102 (H) 0 - 39 unit/L ALT 110 (H) 0 - 55 unit/L Alk Phos 62 40 - 130 unit/L Total Bilirubin 0.5 0.2 - 1.3 mg/dL Bili, Direct 0.2 0.0 - 0.3 mg/dL APTT Result Value Ref Range PTT 27 25 - 37 sec Prothrombin Time Result Value Ref Range PT 12.9 (H) 9.4 - 12.5 sec INR 1.1 Iron and TIBC Result Value Ref Range Iron 96 45 - 160 mcg/dL TIBC 201 (L) 250 - 450 mcg/dL Iron Saturation 48 20 - 50 % BLOOD GAS 2 ARTERIAL Result Value Ref Range pH Art 7.34 (L) 7.35 - 7.45 pCO2 Art 39 35 - 45 mmHg pO2 Art 226 (H) 85 - 104 mmHg HCO3 Art 20.5 20.0 - 26.0 mmol/L BE Art -5.3 (L) -3.0 - 3.0 mmol/L Hgb Blood Gas 14.2 13.7 - 16.5 gm/dL O2HB Art 98.2 (H) 94.0 - 97.0 % COHB Art 0.5 % METHB Art 0.5 <=1.5 % Na Whole Blood 136 135 - 145 mmol/L K Whole Blood 3.8 3.5 - 5.0 mmol/L ICa Whole Blood 1.14 (L) 1.15 - 1.33 mmol/L CL Whole Blood 104 98 - 107 mmol/L Gluc Whole Bld 77 65 - 199 mg/dL Lactate WB 0.6 0.5 - 2.2 mmol/L FIO2 Art 50 % PF Ratio Art 452 Hemogram Result Value Ref Range WBC 8.4 4.0 - 9.5 x10(3)/mcL RBC 4.07 (L) 4.58 - 5.54 x10(6)/mcL Hemoglobin 14.0 13.7 - 16.5 gm/dL Hematocrit 39.9 (L) 40.5 - 48.5 % MCV 98.0 (H) 82.9 - 93.1 fL MCH 34.4 (H) 27.5 - 32.1 pg MCHC 35.1 32.0 - 35.7 gm/dL Platelets 147 145 - 357 x10(3)/mcL RDWSD 45.7 (H) 36.0 - 45.0 fL RDWCV 12.7 11.4 - 13.8 % MPV 8.9 7.6 - 12.9 fL nRBC % Auto 0.0 % nRBC Abs Auto 0.000 0.000 - 0.000 x10(3)/mcL Differential, Automated Result Value Ref Range Neutrophils % 58.5 % Neutr Abs (ANC) 4.91 1.70 - 6.10 x10(3)/mcL Lymphocytes % 31.6 % Lymphocytes Abs 2.7 0.9 - 3.2 x10(3)/mcL Monocytes % 9.4 % Monocyte Abs 0.8 0.3 - 0.9 x10(3)/mcL Eosinophils % 0.1 % Eosinophils Abs 0.0 0.0 - 0.4 x10(3)/mcL Basophils % 0.2 % Basophils Abs 0.0 0.0 - 0.1 x10(3)/mcL Immature Gran % 0.20 % Fide Gran Abs 0.02 0.00 - 0.04 x10(3)/mcL Diagnostic Tests and Imaging: Head CT w/out: IMPRESSION 1. New left frontal approach ventriculostomy terminating near the foramen of Aguilar, with mildly decreased LEFT ventricular caliber. 2. Right caudate head hemorrhage with extensive intraventricular extension redemonstrated, with mildly decreased midline shift. Swallow Screen Results: FAILED (Any Exclusion criteria or NO responses) Time 1430 Assessment and Plan: Ollie Burnett Sr. is a 60 y.o. man with a PMH of EtOH abuse and hemochromatosis who is admitted toNCCU for spontaneous ICH of the right caudated with IVH. Neurology has been consulted for additional management and workup of hemorrhage. The likely etiology of this stroke is unclear, this may be a ischemic infarct with hemorrhagic transformation or primary hemorrhagic stroke. Location of bleed is consistent with a hypertensive hemorrhage. He should undergo MRI brain with SWI sequencing to assess for underlying pathology, including underlying mass or CAA. SBP should be maintained < 160 systolic and antiplatelet/anticoagulation s hould be held. Thrombolytics were considered and not given secondary to Specify reason: hemorrhage . - MRI Brain with SWI sequencing - SBP < 160 - Continue keppra 500 mg BID - HOLD anticoagulation and antiplatelet - EVD management as per NSGY - PT/OT/IMPREGNATOR Fanny Paz MD PGY3 Neurology Resident 04/21/2020 Vascular Neurology Pager [phone] Standard [facility] [place]: This screen is to be used to document a Swallow Screen prior to ingestion of water and /or oral medications for patients with possible stroke (Ischemic or Hemorrhagic). Exclusion Criteria: A swallow screen is not to be performed on patients who: ?? have a decreased level of consciousness. ?? are not able to follow simple commands. ?? are hypoxic, or have increasing O2 needs or may need to be intubated. ?? have a G/J tube for nutrition. ?? have a recent history of a swallowing disorder *These patients should remain NPO (HOLD MEDS) and the physician notified for further orders. Swallow Screen Using Water: None of the Exclusion Criteria as mentioned above is present? Patient is alert and sitting upright? Able to close lips and tongue is midline? Able to cough, manage oral secretions with dry voice? ONLY IF ABOVE ALL YES, Able to swallow 30 ml of water without coughing, displaying a wet voice or choking? Repeat Twice. ??? If YES to all responses, proceed with water and oral medications as well as diet as medical provider deems appropriate. Consider IMPREGNATOR consult for full evaluation and diet recommendations. ??? If NO to any of the responses, stop immediately, keep patient NPO and notify physician. Associated attestation - Thor Garcia MD - 04/22/2020 7:20 AM EDT Images from the original note were not included. I have seen and examined Ollie Burnett Sr. with the neurology team on 04/21/2020 and agree with the assessment and plan as below. R Caudate + intraventricular hemorrhage s/p EVD 60 Y M with h/o drug abuse, alcohol use admitted with hemorrhage brain. Intubated and sedated Equal pupils. R LE voluntary movements +. Line Runner to command. No significant vascular lesions on CTA. UDS + EVD pressure normal. Close neurologic monitoring. Thor Garcia MD Department of Neurology [facility] * Plan of Care - Meaghan Preston SLP - 04/21/2020 11:09 AM EDT Speech-Language Pathology Consult Note Order received. Pt remains on vent at this time. IMPREGNATOR team will continue to monitor. Meaghan Preston MA [facility]-IMPREGNATOR Inpatient Rehabilitation Medicine pager:# [phone] * Plan of Care - Iveth Valencia RN - 04/21/2020 5:42 AM EDT OUTCOME EVALUATION NOTE: OUTCOME SUMMARY: Patient arrived to the ICU at approx 2300, sedated and intubated EVD in place open at 10cm H2O On and off nicardipine for SBP<140 Localizes in the upper ext and withdraws in the lowers Patient placed on continuous EEG for ? Seizure Follow up CT head obtained 500mL bolus NS given for episode of hypotension PLAN MOVING FORWARD: MRI INDIVIDUALIZED FALL PREVENTION INTERVENTIONS: Patient-specific fall risk factors per assessment: [current deficits]: Weakness, ETT, OGT, EEG leads, EKG leads, monitor cables, brewster catheter, SCDs, IV tubing, A line Assistance [level of assistance required for transfers and ambulation]: 2 person assist Supervision [direct monitoring required during toileting and ADLs]: Purposeful rounding, RN/NET APPLICATIONS DEVELOPER assist Surveillance [continuous indirect monitoring]: Tami monitor Patient-specific fall prevention interventions for sensory deficits provided, if applicable: [X] Yes CPG GOAL OUTCOME EVALUATION: * ED Procedure Note - Jeffery Valente MD - 04/20/2020 8:21 PM EDT Arterial Line Placement Procedure Note Indication for Procedure: Arterial line was placed for invasive blood pressure monitoring, arterialblood gases and access. Procedure Diagnosis: intraventricular hemorrhage w/ need for tight BP control on vasoactive medications Location of Procedure: Emergency Department. Risks and Benefits: The risks and benefits of this procedure were not reviewed and informed consentnot applicable. Time Out: Prior to the start of the procedure, the patient's identity, intended procedure, site/side, correct patient positioning and presence of the site caroline was confirmed as applicable. The medical history and chart were reviewed to rule out potential contraindications to the planned procedure. Hand Hygiene: The deboner did perform hand hygiene prior to arterial line insertion. Procedure Prep: Sterile draping was applied. Skin was prepped with chlorhexidine. Full barrier precautions were used. Procedure Details: A 20 gauge, 2 inch catheter was placed in the left radial artery and secured with suture. Tegaderm was applied. Ultrasound was used for guidance. Guide wire was used in this procedure. The guide wire had a diameter of .018 inches. There were 2 attempts. Findings: There were no procedure complications. Blood was drawn with ease. Good wave form. Procedure Comments: First attempt showed intraluminal needle tip with no flash and difficulty advancing wire. Needle was withdrawn without evidence of bleeding or hematoma, pressure held for 1 minuteprior to attempting at a more proximal site on the radial artery. Associated attestation - Raul Krishnan MD - 04/22/2020 12:12 PM EDT ED ATTENDING ATTESTATION NOTE I supervised the resident for the above procedure, but was not present during the weiss portions. Forthe purposed of billing, the resident performed the procedure. * ED Procedure Note - Jeffery Valente MD - 04/20/2020 8:21 PM EDT Images from the original note were not included. Central Line Placement Procedure Note Items highlighted in red are State Reported items for central line compliance documentation. Family was not able to be reached by phone prior to procedure, central line and arterial line placed emergently for delivery of vasoactive medications as well as need for additional vascular access and need to give vesicant medications. Risks and Benefits reviewed: no. Informed Consent obtained: no Reason for insertion: new central line Time out performed and documented: yes Hand Hygiene performed: Yes Skin prepped with: chlorhexidine Skin prep agent completely dry at time of first puncture: yes 3 ml of 1% lidocaine was used for local anesthesia. Sterile drape: large sterile drape used Mask/eye shield: mask/eye shield used Large sterile gown: large sterile gown used Sterile gloves: sterile gloves used Cap worn: cap worn Ultrasound guidance used for insertion: Yes Kit type used: An 18 Ga. X 2.5 inch needle was placed in vein after blood return identified. Guidedby a 0.032 inch diameter guide wire, a 7 Fr., 3 lumen Catheter 20 cm in length antibiotic impregnated catheter was inserted using the Seldinger Technique. Catheter type: CVL Tunneled/Non Tunneled: non tunneled Insertion Site: sublavian Insertion Side: left Number of attempts: 1 Insertion successful: Yes Catheter sutured at the skin at: 20 cm . Sterile dressing: Chlorhexidine Tegaderm Findings: Patient tolerated procedure well., Blood returned appropriately., using transducer tubingthe cannulated vessel was confirmed to be arterial prior to dilation. Complications: No Complications. Chest X-ray ordered: yes Patient location at time of insertion: ED Procedure Comments: Successful left subclavian central line, confirmed by XR. Post-procedure thoracic ultrasound shows lung sliding in the most dependent anterior superior chest segment without evidence of lung point sign/ptx. Images were stored and uploaded to secure review platform ([email or web address]). I performed the following procedure(s): central venous access. Ultrasound short axis confirmation of wire in the subclavian vein in short axis: Associated attestation - Raul Krishnan MD - 04/22/2020 12:12 PM EDT ED ATTENDING ATTESTATION NOTE I was present for and supervised the weiss portions of the procedure and was immediately available for the entire procedure. documented in this encounter Plan of Treatment Not on file documented as of this encounter Procedures Procedure Name Priority Date/Time Associated Diagnosis Comments HEMOGRAM Routine 05/09/2020 9:31 AM EDT DIFFERENTIAL, AUTOMATED Routine 05/09/2020 9:31 AM EDT HC VENIPUNCTURE Routine 05/09/2020 9:31 AM EDT HEPATIC FUNCTION PANEL Routine 0 9:31 AM EDT HC PHOSPHORUS, SERUM Routine 05/09/2020 5:29 AM EDT HC MAGNESIUM, SERUM Routine 05/09/2020 5 :29 AM EDT HEPATIC FUNCTION PANEL Routine 0 5:29 AM EDT HC VENIPUNCTURE Routine 05/09/2020 5:29 AM EDT HEMOGRAM Routine 05/08/2020 5:42 AM EDT DIFFERENTIAL, AUTOMATED Routine 05/08/2020 5:42 AM EDT HC CBC,PLT & AUTO DIFF Routine 0 5:42 AM EDT HC PHOSPHORUS, SERUM Routine 05/08/2020 5:42 AM EDT HC MAGNESIUM, SERUM Routine 05/08/2020 5 :42 AM EDT HEPATIC FUNCTION PANEL Routine 0 5:42 AM EDT HC VENIPUNCTURE Routine 05/08/2020 5:42 AM EDT HEMOGRAM Routine 05/07/2020 4:42 AM EDT DIFFERENTIAL, AUTOMATED Routine 05/07/2020 4:42 AM EDT HC CBC,PLT & AUTO DIFF Routine 0 4:42 AM EDT HC PHOSPHORUS, SERUM Routine 05/07/2020 4:42 AM EDT HC MAGNESIUM, SERUM Routine 05/07/2020 4 :42 AM EDT HEPATIC FUNCTION PANEL Routine 0 4:42 AM EDT HC VENIPUNCTURE Routine 05/07/2020 4:42 AM EDT DUPLEX FOR DVT BILAT LEGS Routine 05/06/2020 1:12 PM EDT Deep vein thrombosis (DVT) of left lower extremity, unspecified chronicity, unspecified vein HEMOGRAM Routine 05/06/2020 6:13 AM EDT DIFFERENTIAL, AUTOMATED Routine 05/06/2020 6:13 AM EDT HC CBC,PLT & AUTO DIFF Routine 0 6:13 AM EDT HC PHOSPHORUS, SERUM Routine 05/06/2020 6:13 AM EDT HC MAGNESIUM, SERUM Routine 05/06/2020 6 :13 AM EDT HEPATIC FUNCTION PANEL Routine 0 6:13 AM EDT HC VENIPUNCTURE Routine 05/06/2020 6:13 AM EDT HC VENIPUNCTURE Timed 05/05/2020 9:57 AM EDT HEMOGRAM Routine 05/05/2020 6:19 AM EDT DIFFERENTIAL, AUTOMATED Routine 05/05/2020 6:19 AM EDT HC CBC,PLT & AUTO DIFF Routine 0 6:19 AM EDT HC PHOSPHORUS, SERUM Routine 05/05/2020 6:19 AM EDT HC MAGNESIUM, SERUM Routine 05/05/2020 6 :19 AM EDT HEPATIC FUNCTION PANEL Routine 0 6:19 AM EDT HC VENIPUNCTURE Routine 05/05/2020 6:19 AM EDT HC L-LACTATE Routine 05/04/2020 10:41 AM EDT SCAN, PERIPHERAL BLOOD Routine 0 2:05 AM EDT HEMOGRAM Routine 05/04/2020 2:05 AM EDT DIFFERENTIAL, AUTOMATED Routine 05/04/2020 2:05 AM EDT HC CBC,PLT & AUTO DIFF Routine 0 2:05 AM EDT HC PHOSPHORUS, SERUM Routine 05/04/2020 2:05 AM EDT HC MAGNESIUM, SERUM Routine 05/04/2020 2 :05 AM EDT HC VENIPUNCTURE Routine 05/04/2020 2:05 AM EDT BASIC METABOLIC PANEL Routine 05/04/2020 2:05 AM EDT MRI HEAD ANGIOGRAM WO CONTRAST Routine 05/03/2020 9:32 PM EDT MRI BRAIN WO CONTRAST STAT 05/03/2020 9:32 PM EDT BODY FLUID HOLD Routine 05/03/2020 4:40 PM EDT HC CSF CELL CT W/ DIFFERENTIAL Routine 05/03/2020 4:40 PM EDT CSF CELL COUNT Routine 05/03/2020 4:40 PM EDT CSF DESC 4 Routine 05/03/2020 4:40 PM EDT CSF DESC 3 Routine 05/03/2020 4:40 PM EDT CSF DESC 2 Routine 05/03/2020 4:40 PM EDT CSF DESC 1 Routine 05/03/2020 4:40 PM EDT CSF CELL COUNT 2ND COUNT Routine 05/03/2020 4:40 PM EDT IRON STAIN, BODY FLUID Routine 0 4:40 PM EDT HC PROTEIN, CSF Routine 05/03/2020 4:40 PM EDT HC GLUCOSE, CSF Routine 05/03/2020 4:40 PM EDT HC PCH MO-ENTEROVIRUS AMPLIFIED PROBE Routine 05/03/2020 4:36 PM EDT HC CRYPTOCOCCAL ANTIGEN Routine 05/03/2020 4:36 PM EDT HC BUDGET OFFICER CULTURE Routine 05/03/2020 4:36 PM EDT HC FUNGUS CULTURE, MISC SOURCE Routine 05/03/2020 4:36 PM EDT XR CHEST ONE VIEW Routine 05/03/2020 1:5 9 PM EDT BLOOD GAS ARTERIAL POC Routine 0 1:06 PM EDT HC BLOOD CULTURE- STAT 05/03/2020 12: 42 PM EDT HC BLOOD CULTURE- STAT 05/03/2020 12: 32 PM EDT ZEEG AWAKE, ASLEEP, DROWSY STAT 05/03/2020 11:[address] HEAD WO CONTRAST (GENERIC) STAT 05/03/2020 10:07 AM EDT LIPID PANEL (NO REFLEX) Routine 05/03/2020 1:14 AM EDT HEMOGRAM Routine 05/03/2020 1:14 AM EDT DIFFERENTIAL, AUTOMATED Routine 05/03/2020 1:14 AM EDT HC CBC,PLT & AUTO DIFF Routine 0 1:14 AM EDT HC PHOSPHORUS, SERUM Routine 05/03/2020 1:14 AM EDT HC VENIPUNCTURE Routine 05/03/2020 1:14 AM EDT HEMOGLOBIN A1C Routine 05/03/2020 1:14 AM EDT BASIC METABOLIC PANEL Routine 05/03/2020 1:14 AM EDT HEMOGRAM Routine 05/02/2020 3:32 AM EDT DIFFERENTIAL, AUTOMATED Routine 05/02/2020 3:32 AM EDT HC VENIPUNCTURE Routine 05/02/2020 3:32 AM EDT HC PHOSPHORUS, SERUM Routine 05/02/2020 3:32 AM EDT HC MAGNESIUM, SERUM Routine 05/02/2020 3 :32 AM EDT HC AMMONIA, PLASMA Routine 05/02/2020 3: 32 AM EDT BASIC METABOLIC PANEL Routine 05/02/2020 3:32 AM EDT LAVENDER TUBE HOLD Routine 05/02/2020 1: 40 AM EDT HC THYROID STIMULATING HORMONE, SERUM Routine 05/01/2020 7:00 PM EDT HC FOLATE, SERUM Routine 05/01/2020 7:00 PM EDT HC VITAMIN B12 SERUM Routine 05/01/2020 7:00 PM EDT HEPATIC FUNCTION PANEL Routine 0 7:00 PM EDT URINALYSIS MICROSCOPIC EXAM Routine 05/01/2020 6:58 PM EDT URINALYSIS WITH REFLEX CULTURE Routine 05/01/2020 6:58 PM EDT HC POTASSIUM Routine 05/01/2020 12:35 PM EDT DUPLEX FOR DVT BILAT ARM Routine 05/01/2020 10:31 AM EDT Intraventricular hemorrhage CT HEAD WO CONTRAST (GENERIC) Routine 05/01/2020 8:56 AM EDT SCAN, PERIPHERAL BLOOD Routine 0 12:37 AM EDT HEMOGRAM Routine 05/01/2020 12:37 AM EDT DIFFERENTIAL, AUTOMATED Routine 05/01/2020 12:37 AM EDT HC CBC,PLT & AUTO DIFF Routine 0 12:37 AM EDT HC PHOSPHORUS, SERUM Routine 05/01/2020 12:37 AM EDT HC MAGNESIUM, SERUM Routine 05/01/2020 1 2:37 AM EDT BASIC METABOLIC PANEL Routine 05/01/2020 12:37 AM EDT HEMOGRAM Routine 04/30/2020 12:13 AM EDT DIFFERENTIAL, AUTOMATED Routine 04/30/2020 12:13 AM EDT HC CBC,PLT & AUTO DIFF Routine 0 12:13 AM EDT HC MAGNESIUM, SERUM Routine 04/30/2020 1 2:13 AM EDT BASIC METABOLIC PANEL Routine 04/30/2020 12:13 AM EDT HC SODIUM Routine 04/29/2020 3:47 PM EDT DUPLEX FOR DVT BILAT LEGS Routine 04/29/2020 10:31 AM EDT Nontraumatic intracerebral hemorrhage, unspecified cerebral location, unspecified laterality HEMOGRAM Routine 04/29/2020 12:19 AM EDT DIFFERENTIAL, AUTOMATED Routine 04/29/2020 12:19 AM EDT HC CBC,PLT & AUTO DIFF Routine 0 12:19 AM EDT HC PHOSPHORUS, SERUM Routine 04/29/2020 12:19 AM EDT HC MAGNESIUM, SERUM Routine 04/29/2020 1 2:19 AM EDT BASIC METABOLIC PANEL Routine 04/29/2020 12:19 AM EDT HC SODIUM Timed 04/28/2020 4:52 PM EDT HC SODIUM Routine 04/28/2020 10:53 AM EDT XR CHEST ONE VIEW Routine 04/28/2020 10: 51 AM EDT URINALYSIS MICROSCOPIC EXAM Routine 04/28/2020 10:06 AM EDT URINALYSIS WITH REFLEX CULTURE Routine 04/28/2020 10:06 AM EDT HC BLOOD CULTURE- STAT 04/28/2020 9:4 5 AM EDT HC BLOOD CULTURE- STAT 04/28/2020 9:4 0 AM EDT HEMOGRAM Routine 04/28/2020 4:30 AM EDT DIFFERENTIAL, AUTOMATED Routine 04/28/2020 4:30 AM EDT HC CBC,PLT & AUTO DIFF Routine 0 4:30 AM EDT HC PHOSPHORUS, SERUM Routine 04/28/2020 4:30 AM EDT HC MAGNESIUM, SERUM Routine 04/28/2020 4 :30 AM EDT BASIC METABOLIC PANEL Routine 04/28/2020 4:30 AM EDT HC SODIUM Routine 04/27/2020 10:[address] HEAD WO CONTRAST (GENERIC) STAT 04/27/2020 8:17 PM EDT HC SODIUM Routine 04/27/2020 2:30 PM EDT HC SODIUM, URINE Routine 04/27/2020 6:58 AM EDT HC OSMOLALITY URINE Routine 04/27/2020 6 :58 AM EDT HC SODIUM Routine 04/27/2020 6:35 AM EDT HEMOGRAM Routine 04/27/2020 2:15 AM EDT DIFFERENTIAL, AUTOMATED Routine 04/27/2020 2:15 AM EDT HC CBC,PLT & AUTO DIFF Routine 0 2:15 AM EDT HC PHOSPHORUS, SERUM Routine 04/27/2020 2:15 AM EDT OSMOLALITY Routine 04/27/2020 2:15 AM EDT HC MAGNESIUM, SERUM Routine 04/27/2020 2 :15 AM EDT BASIC METABOLIC PANEL Routine 04/27/2020 2:15 AM EDT XR ABDOMEN 1 VIEW Routine 04/26/2020 12: 19 PM EDT EXTUBATE Routine 04/26/2020 9:04 AM EDT HC POTASSIUM Routine 04/26/2020 6:40 AM EDT HEMOGRAM Routine 04/26/2020 1:50 AM EDT DIFFERENTIAL, AUTOMATED Routine 04/26/2020 1:50 AM EDT HC CBC,PLT & AUTO DIFF Routine 0 1:50 AM EDT HC PHOSPHORUS, SERUM Routine 04/26/2020 1:50 AM EDT HC MAGNESIUM, SERUM Routine 04/26/2020 1 :50 AM EDT BASIC METABOLIC PANEL Routine 04/26/2020 1:50 AM EDT XR ABDOMEN 1 VIEW STAT 04/25/2020 2:2 6 PM EDT BLOOD GAS ARTERIAL POC Routine 0 2:09 PM EDT POCT GLUCOSE Routine 04/25/2020 1:43 PM EDT HEMOGRAM Routine 04/25/2020 1:10 AM EDT DIFFERENTIAL, AUTOMATED Routine 04/25/2020 1:10 AM EDT HC CBC,PLT & AUTO DIFF Routine 0 1:10 AM EDT HC PHOSPHORUS, SERUM Routine 04/25/2020 1:10 AM EDT HC MAGNESIUM, SERUM Routine 04/25/2020 1 :10 AM EDT BASIC METABOLIC PANEL Routine 04/25/2020 1:10 AM EDT POCT GLUCOSE Routine 04/24/2020 11:33 AM EDT HC POTASSIUM Routine 04/24/2020 11:30 AM EDT POCT GLUCOSE Routine 04/24/2020 7:40 AM EDT XR CHEST ONE VIEW Routine 04/24/2020 5:3 5 AM EDT HEMOGRAM Routine 04/24/2020 2:15 AM EDT DIFFERENTIAL, AUTOMATED Routine 04/24/2020 2:15 AM EDT HC CBC,PLT & AUTO DIFF Routine 0 2:15 AM EDT HC PHOSPHORUS, SERUM Routine 04/24/2020 2:15 AM EDT HC MAGNESIUM, SERUM Routine 04/24/2020 2 :15 AM EDT BASIC METABOLIC PANEL Routine 04/24/2020 2:15 AM EDT MRI BRAIN WWO CONTRAST (GENERIC) Routine 04/23/2020 10:41 PM EDT HC BLOOD CULTURE- Routine 04/23/2020 5:2 0 PM EDT HC BLOOD CULTURE- Routine 04/23/2020 5:2 0 PM EDT XR CHEST ONE VIEW Routine 04/23/2020 4:3 8 PM EDT HC URINALYSIS ROUTINE Routine 04/23/2020 3:27 PM EDT URINE HOLD Routine 04/23/2020 3:27 PM EDT CSF CELL COUNT Routine 04/23/2020 3:19 PM EDT CSF DESC 1 Routine 04/23/2020 3:19 PM EDT CSF CELL COUNT 2ND COUNT Routine 04/23/2020 3:19 PM EDT HC GRAM STAIN FOR BACTERIA Routine 04/23/2020 3:19 PM EDT HC GRAM STAIN FOR BACTERIA Routine 04/23/2020 3:19 PM EDT HC AMMONIA, PLASMA Routine 04/23/2020 2: 00 PM EDT HC POTASSIUM Routine 04/23/2020 10:00 AM EDT HEMOGRAM Routine 04/23/2020 3:50 AM EDT DIFFERENTIAL, AUTOMATED Routine 04/23/2020 3:50 AM EDT HC CBC,PLT & AUTO DIFF Routine 0 3:50 AM EDT HC PHOSPHORUS, SERUM Routine 04/23/2020 3:50 AM EDT HC MAGNESIUM, SERUM Routine 04/23/2020 3 :50 AM EDT BASIC METABOLIC PANEL Routine 04/23/2020 3:50 AM EDT HC POTASSIUM Routine 04/22/2020 8:[address] HEAD WO CONTRAST (GENERIC) STAT 04/22/2020 4:54 PM EDT ECHO COMPLETE Routine 04/22/2020 1:23 PM EDT Nontraumatic intracerebral hemorrhage, unspecified cerebral location, unspecified laterality IR ARTERIOGRAM CEREBRAL Routine 04/22/2020 11:01 AM EDT Perm Occlusion/Embolization , Alana, Communications Billing Analyst ([id number]) 04/22/2020 8:54 AM EDT Spontaneous IPH, access for vascular lesion (DSA only) HEMOGRAM Routine 04/22/2020 12:50 AM EDT DIFFERENTIAL, AUTOMATED Routine 04/22/2020 12:50 AM EDT HC CBC,PLT & AUTO DIFF Routine 0 12:50 AM EDT HC PHOSPHORUS, SERUM Routine 04/22/2020 12:50 AM EDT HC MAGNESIUM, SERUM Routine 04/22/2020 1 2:50 AM EDT HEPATIC FUNCTION PANEL Routine 0 12:50 AM EDT BASIC METABOLIC PANEL Routine 04/22/2020 12:50 AM EDT MRI BRAIN WWO CONTRAST (GENERIC) Routine 04/21/2020 2:[address] HEAD WO CONTRAST (GENERIC) Routine 04/21/2020 4:34 AM EDT BLOOD GAS ARTERIAL POC Routine 0 1:00 AM EDT HEMOGRAM Routine 04/21/2020 1:00 AM EDT DIFFERENTIAL, AUTOMATED Routine 04/21/2020 1:00 AM EDT HC IRON BINDING CAPACITY Routine 04/21/2020 1:00 AM EDT HC PARTIAL THROMBOPLASTIN TIME Routine 04/21/2020 1:00 AM EDT HC PROTHROMBIN TIME Routine 04/21/2020 1 :00 AM EDT HC CBC,PLT & AUTO DIFF Routine 0 1:00 AM EDT HC PHOSPHORUS, SERUM Routine 04/21/2020 1:00 AM EDT HC MAGNESIUM, SERUM Routine 04/21/2020 1 :00 AM EDT HEPATIC FUNCTION PANEL Routine 0 1:00 AM EDT BASIC METABOLIC PANEL Routine 04/21/2020 1:00 AM EDT XR CHEST ONE VIEW STAT 04/20/2020 11: 25 PM EDT POCT GLUCOSE Routine 04/20/2020 10:[address] HEAD WO CONTRAST (GENERIC) Routine 04/20/2020 10:12 PM EDT XR CHEST ONE VIEW STAT 04/20/2020 8:2 8 PM EDT ABORH RECHECK STATUS STAT 04/20/2020 6:20 PM EDT LEE TUBE HOLD STAT 04/20/2020 6:20 PM EDT HEMOGRAM STAT 04/20/2020 6:20 PM EDT DIFFERENTIAL, AUTOMATED STAT 04/20/2020 6:20 PM EDT GOLD TUBE HOLD STAT 04/20/2020 6:20 PM EDT ABO/RH TYPING STAT 04/20/2020 6:20 PM EDT HC PARTIAL THROMBOPLASTIN TIME STAT 04/20/2020 6:20 PM EDT HC PROTHROMBIN TIME STAT 04/20/2020 6 :20 PM EDT HC CBC,PLT & AUTO DIFF STAT 0 6:20 PM EDT ANTIBODY SCREEN STAT 04/20/2020 6:20 PM EDT HC ANTIBODY DETECTION,CAPTURE-R STAT 04/20/2020 6:20 PM EDT TROPONIN STAT 04/20/2020 6:20 PM EDT HC PHOSPHORUS, SERUM STAT 04/20/2020 6:20 PM EDT HC MAGNESIUM, SERUM STAT 04/20/2020 6 :20 PM EDT HEPATIC FUNCTION PANEL STAT 0 6:20 PM EDT BASIC METABOLIC PANEL STAT 04/20/2020 6:20 PM EDT RAPID DRUG SCREEN, URINE STAT 04/20/2020 6:10 PM EDT RAPID DRUG SCREEN W/O CONFIRMATION, URINE STAT 04/20/2020 6:10 PM EDT XR CHEST ONE VIEW STAT 04/20/2020 6:0 9 PM EDT BLOOD GAS VENOUS POC Routine 04/20/2020 6:09 PM EDT RAPID COVID-19 PCR ([facility]) STAT 04/20/2020 6:08 PM EDT URINALYSIS MICROSCOPIC EXAM STAT 04/20/2020 6:08 PM EDT URINALYSIS WITH REFLEX CULTURE STAT 04/20/2020 6:[address] [place] W CONTRAST STAT 04/20/2020 5:[address] HEAD WO CONTRAST (GENERIC) STAT 04/20/2020 5:48 PM EDT FILM LIBRARY STORAGE ONLY DX CHEST STAT 04/20/2020 5:01 PM EDT FILM LIBRARY STORAGE ONLY CT CHEST ABDOMEN PELVIS STAT 04/20/2020 4:16 PM EDT FILM LIBRARY STORAGE ONLY CT HEAD AND SPINE STAT 04/20/2020 4:15 PM EDT documented in this encounter Results * Differential, Automated (05/09/2020 9:31 AM EDT) Neutrophil % 56.0 % [facility] Neutrophil Absolute 4.18 1.70 - 6.10 x10(3)/[facility] [place] [place] Lymph % 29.3 % [facility] Lymphocytes Abs 2.2 0.9 - 3.2 x10(3)/[facility] Monocyte % 11.0 % [facility] [place] Monocyte Abs 0.8 0.3 - 0.9 x10(3)/[facility] Eos % 2.5 % [facility] Eosinophils Abs 0.2 0.0 - 0.4 x10(3)/[facility] [place] [place] Basophil % 0.7 % [facility] [place] Baso Absolute 0.0 0.0 - 0.1 x10(3)/[facility] [place] [place] Immature Gran % 0.50 % [facility] Comment: Immature granulocytes(IG's)percentage and absolute count will include metamyelocytes, myelocytes, and promyelocytes. Blood smears from CBCs yielding IG's will be scanned manually for concordance. If this scan disagrees with the automated IG or if promyelocytes are noted, a manual differential will be performed. Immature Gran Absolute 0.04 0.00 - 0.04 x10(3)/[facility] [place] [place] Blood specimen (specimen) 05/09/2020 9:31 AM EDT 05/09/2020 10:01 AM EDT Narrative Resulting Agency Comment Spec In Lab Lu Niño MD HEMATOLOGY ORDERABLE S [facility] [place] [address] * (ABNORMAL) Hemogram (05/09/2020 9:31 AM EDT) White Blood Cell 7.5 4.0 - 9.5 x10(3)/ L [facility] Red Blood Cell 3.82(L) 4.58 - 5.54 x10(6)/mc L [facility] Hemoglobin 12.9(L) 13.7 - 16.5 gm/dL [facility] Hematocrit 37.8(L) 40.5 - 48.5 % [facility] Mean Cell Volume 99.0(H) 82.9 - 93.[address] [facility] Mean Cell Hemoglobin 33.8(H) 27.5 - 32.[address] [facility] Mean Cell Hemoglobin Concentration 34.1 32.0 - 35.7 gm/dL [facility] Platelet 506(H) 145 - 357 x10(3)/mc L [facility] RDW Standard Deviation 47.4(H) 36.0 - 45.0 [facility] RDW coefficient of variation 13.3 11.4 - 13.8 % [facility] Mean Platelet Volume 9.1 7.6 - 12.9 [facility] NRBC% auto 0.0 % [facility] NRBC Absolute 0.000 0.000 - 0.000 x10(3)/mc L [facility] Blood specimen (specimen) 05/09/2020 9:31 AM EDT 05/09/2020 10:01 AM EDT Narrative Resulting Agency Comment Spec In Lab Lu Niño MD HEMATOLOGY ORDERABLE S [facility] [place] [address] * (ABNORMAL) Hepatic Function Panel (05/09/2020 9:31 AM EDT) Protein, Total 6.8 6.1 - 8.0 gm/dL [facility] Albumin 3.2 3.2 - 5.2 gm/dL [facility] Aspartate Aminotransferase 73(H) 0 - 39 unit/L [facility] Alanine Aminotransferase 118(H) 0 - 55 unit/L [facility] Alkaline Phosphatase 90 40 - 130 unit/L [facility] Bilirubin, Total 0.5 0.2 - 1.3 mg/dL [facility] Bilirubin, Direct 0.2 0.0 - 0.3 mg/dL [facility] Blood specimen (specimen) 05/09/2020 9:31 AM EDT 05/09/2020 10:01 AM EDT Narrative Resulting Agency Comment Spec In Lab Casey Jiménez MD CHEMISTRY ORDERABL ES Performing Organization Address City/[facility]/ZIP Co de Phone Number [facility] [place] [address] * (ABNORMAL) Hepatic Function Panel (05/09/2020 5:29 AM EDT) Protein, Total 7.1 6.1 - 8.0 gm/dL [facility] Albumin 3.3 3.2 - 5.2 gm/dL [facility] Aspartate Aminotransferase Not Perf 0 - 39 [facility] Comment: Unable to quantitate due to sample hemolysis. ??Sample redraw suggested. Called by: DUNIA, Read back by: Herrera Garcia, Date/Time:05/09/20 07:46. Alanine Aminotransferase 122(H) 0 - 55 unit/L [facility] Alkaline Phosphatase 92 40 - 130 unit/L [facility] Bilirubin, Total 0.6 0.2 - 1.3 mg/dL [facility] Bilirubin, Direct 0.2 0.0 - 0.3 mg/dL [facility] Blood specimen (specimen) 05/09/2020 5:29 AM EDT 05/09/2020 6:54 AM EDT Narrative Resulting Agency Comment Spec In Lab Lynnette Khan APRN CHEMISTRY ORDERAB LES Performing Organization Address City/[facility]/ZIP Co de Phone Number [facility] [place] [address] * Phosphorus (05/09/2020 5:29 AM EDT) Phosphorus 2.8 2.5 - 4.5 mg/dL [facility] Blood specimen (specimen) 05/09/2020 5:29 AM EDT 05/09/2020 6:54 AM EDT Narrative Resulting Agency Comment Spec In Lab Lynnette Louisa [place] PITCH FILLER CHEMISTRY ORDERAB LES Performing Organization Address [facility] Co de Phone Number [facility] [place] [address] * Magnesium (05/09/2020 5:29 AM EDT) [facility] Magnesium 0.85 0.69 - 1.07 mmol/L [facility] Blood specimen (specimen) 05/09/2020 5:29 AM EDT 05/09/2020 6:54 AM EDT Narrative Resulting Agency Comment Spec In Lab Lynnette Khan PITCH FILLER CHEMISTRY ORDERAB LES Performing Organization Address [facility] Co de Phone Number [facility] [place] [address] * (ABNORMAL) Basic Metabolic Panel (non-fasting) (05/09/2020 5:29 AM EDT) Pathologist [facility] Glucose Not Perf 65 - 199 [facility] Comment: Sample improperly processed prior to receipt. Diabetes: >=200 mg/dL plus symptoms Blood Urea Nitrogen 14 10 - 20 mg/dL [facility] Creatinine 0.53(L) 0.80 - 1.50 mg/dL [facility] Sodium 136 135 - 145 mmol/L [facility] Potassium 4.2 3.5 - 5.0 mmol/L [facility] Comment: Please note: ??Patients with WBC >100,000 may have falsely elevated Potassium levels. ??For accurate Potassium quantification in these patients send serum separator tube (gold top) for subsequent determinations. ??Contact the Clinical Chemistry Laboratory if there are any questions. Chloride 102 98 - 107 mmol/L [facility] Carbon Dioxide 21(L) 22 - 31 mmol/L [facility] Anion Gap 13 5 - 15 mmol/L [facility] Calcium 8.6 8.5 - 10.5 mg/dL [facility] Est Glomerular Filtration Rate 114 >=60 mL/min/1. 73 m?? [facility] Comment: The eGFR was calculated using the CKD-EPI equation. As with all creatinine based estimates of kidney function, eGFR values calculated with the CKD-EPI equation are not accurate in patients with acute kidney failure, extremes of body mass or the acutely ill. [email or web address]ul[facility] eGFR 132 >=60 mL/min/1. 73 m?? [facility] Comment: The eGFR was calculated using the CKD-EPI equation. As with all creatinine based estimates of kidney function, eGFR values calculated with the CKD-EPI equation are not accurate in patients with acute kidney failure, extremes of body mass or the acutely ill. [email or web address]/DHMCnkf Blood specimen (specimen) 05/09/2020 5:29 AM EDT 05/09/2020 6:54 AM EDT Narrative Resulting Agency Comment Spec In Lab Lynnette Khan APRN CHEMISTRY ORDERAB LES Performing Organization Address City/State/[facility] Co de Phone Number [facility] [place] [address] * Differential, Automated (05/08/2020 5:42 AM EDT) Neutrophil % 60.4 % [facility] Neutrophil Absolute 5.04 1.70 - 6.10 x10(3)/[facility] Lymph % 26.8 % [facility] Lymphocytes Abs 2.2 0.9 - 3.2 x10(3)/[facility] Monocyte % 9.2 % [facility] Monocyte Abs 0.8 0.3 - 0.9 x10(3)/[facility] Eos % 2.5 % [facility] Eosinophils Abs 0.2 0.0 - 0.4 x10(3)/[facility] Basophil % 0.6 % [facility] Baso Absolute 0.0 0.0 - 0.1 x10(3)/[facility] Immature Gran % 0.50 % [facility] Comment: Immature granulocytes(IG's)percentage and absolute count will include metamyelocytes, myelocytes, and promyelocytes. Blood smears from CBCs yielding IG's will be scanned manually for concordance. If this scan disagrees with the automated IG or if promyelocytes are noted, a manual differential will be performed. Immature Gran Absolute 0.04 0.00 - 0.04 x10(3)/[facility] Blood specimen (specimen) 05/08/2020 5:42 AM EDT 05/08/2020 5:52 AM EDT Narrative Resulting Agency Comment Spec In Lab Lynnette Khan APRN HEMATOLOGY ORDERA BLES [facility] [place] [address] * (ABNORMAL) Hemogram (05/08/2020 5:42 AM EDT) White Blood Cell 8.4 4.0 - 9.5 x10(3)/mc L [facility] Red Blood Cell 3.76(L) 4.58 - 5.54 x10(6)/mc L [facility] Hemoglobin 12.6(L) 13.7 - 16.5 gm/dL [facility] Hematocrit 37.2(L) 40.5 - 48.5 % [facility] Mean Cell Volume 98.9(H) 82.9 - 93.[address] [facility] Mean Cell Hemoglobin 33.5(H) 27.5 - 32.[address] [facility] Mean Cell Hemoglobin Concentration 33.9 32.0 - 35.7 gm/dL [facility] Platelet 468(H) 145 - 357 x10(3)/mc L [facility] RDW Standard Deviation 47.8(H) 36.0 - 45.[address] [facility] RDW coefficient of variation 13.2 11.4 - 13.8 % [facility] Mean Platelet Volume 9.1 7.6 - 12.[address] [facility] NRBC% auto 0.0 % [facility] NRBC Absolute 0.000 0.000 - 0.000 x10(3)/mc L [facility] Blood specimen (specimen) 05/08/2020 5:42 AM EDT 05/08/2020 5:52 AM EDT Narrative Resulting Agency Comment Spec In Lab Lynnette Khan APRN HEMATOLOGY ORDERA BLES Performing Organization Address City/State/[facility] Co de Phone Number [facility] [place] [address] * (ABNORMAL) Hepatic Function Panel (05/08/2020 5:42 AM EDT) Protein, Total 6.7 6.1 - 8.0 gm/dL [facility] Albumin 2.9(L) 3.2 - 5.2 gm/dL [facility] Aspartate Aminotransferase 88(H) 0 - 39 unit/L [facility] Alanine Aminotransferase 144(H) 0 - 55 unit/L [facility] Alkaline Phosphatase 94 40 - 130 unit/L [facility] Bilirubin, Total 0.6 0.2 - 1.3 mg/dL [facility] Bilirubin, Direct 0.2 0.0 - 0.3 mg/dL [facility] Blood specimen (specimen) 05/08/2020 5:42 AM EDT 05/08/2020 5:52 AM EDT Narrative Resulting Agency Comment Spec In Lab Lynnette C Erin PITCH FILLER CHEMISTRY ORDERAB LES Performing Organization Address [facility]/ZIP Co de Phone Number [facility] [place] [place] [address] * Phosphorus (05/08/2020 5:42 AM EDT) Phosphorus 2.8 2.5 - 4.5 mg/dL [facility] Blood specimen (specimen) 05/08/2020 5:42 AM EDT 05/08/2020 5:52 AM EDT Narrative Resulting Agency Comment Spec In Lab Lynnette Khan PITCH FILLER CHEMISTRY ORDERAB LES Performing Organization Address [facility] Co de Phone Number [facility] [place] [place] [address] * Magnesium (05/08/2020 5:42 AM EDT) Pathologist [facility] Magnesium 0.87 0.69 - 1.07 mmol/L [facility] Blood specimen (specimen) 05/08/2020 5:42 AM EDT 05/08/2020 5:52 AM EDT Narrative Resulting Agency Comment Spec In Lab Lynnette Khan PITCH FILLER CHEMISTRY ORDERAB LES Performing Organization Address [facility] Co de Phone Number [facility] [place] [address] * (ABNORMAL) Basic Metabolic Panel (non-fasting) (05/08/2020 5:42 AM EDT) Glucose 139 65 - 199 mg/dL [facility] Comment:Diabetes: >=200 mg/d L plus symptoms Blood Urea Nitrogen 18 10 - 20 mg/dL [facility] Creatinine 0.49(L) 0.80 - 1.50 mg/dL [facility] Sodium 137 135 - 145 mmol/L [facility] Potassium 3.7 3.5 - 5.0 mmol/L [facility] Comment: Please note: ??Patients with WBC >100,000 may have falsely elevated Potassium levels. ??For accurate Potassium quantification in these patients send serum separator tube (gold top) for subsequent determinations. ??Contact the Clinical Chemistry Laboratory if there are any questions. Chloride 103 98 - 107 mmol/L [facility] Carbon Dioxide 23 22 - 31 mmol/L [facility] Anion Gap 11 5 - 15 mmol/L [facility] Calcium 8.5 8.5 - 10.5 mg/dL [facility] Est Glomerular Filtration Rate 118 >=60 mL/min/1. 73 m?? [facility] Comment: The eGFR was calculated using the CKD-EPI equation. As with all creatinine based estimates of kidney function, eGFR values calculated with the CKD-EPI equation are not accurate in patients with acute kidney failure, extremes of body mass or the acutely ill. http://[facility] eGFR 137 >=60 mL/min/1. 73 m?? [facility] Comment: The eGFR was calculated using the CKD-EPI equation. As with all creatinine based estimates of kidney function, eGFR values calculated with the CKD-EPI equation are not accurate in patients with acute kidney failure, extremes of body mass or the acutely ill. http://[facility] Blood specimen (specimen) 05/08/2020 5:42 AM EDT 05/08/2020 5:52 AM EDT Narrative Resulting Agency Comment Spec In Lab Lynnette Khan PITCH FILLER CHEMISTRY ORDERAB LES [facility] [place] [address] * Differential, Automated (05/07/2020 4:42 AM EDT) Neutrophil % 63.7 % [facility] Neutrophil Absolute 4.65 1.70 - 6.10 x10(3)/[facility] Lymph % 23.0 % [facility] Lymphocytes Abs 1.7 0.9 - 3.2 x10(3)/[facility] Monocyte % 10.1 % [facility] Monocyte Abs 0.7 0.3 - 0.9 x10(3)/[facility] Eos % 2.3 % [facility] Eosinophils Abs 0.2 0.0 - 0.4 x10(3)/[facility] Basophil % 0.4 % [facility] Baso Absolute 0.0 0.0 - 0.1 x10(3)/[facility] Immature Gran % 0.50 % [facility] Comment: Immature granulocytes(IG's)percentage and absolute count will include metamyelocytes, myelocytes, and promyelocytes. Blood smears from CBCs yielding IG's will be scanned manually for concordance. If this scan disagrees with the automated IG or if promyelocytes are noted, a manual differential will be performed. Immature Gran Absolute 0.04 0.00 - 0.04 x10(3)/[facility] Blood specimen (specimen) 05/07/2020 4:42 AM EDT 05/07/2020 5:03 AM EDT Narrative Resulting Agency Comment Spec In Lab Lynnette Khan APRN HEMATOLOGY ORDERA BLES [facility] [place] [address] * (ABNORMAL) Hemogram (05/07/2020 4:42 AM EDT) White Blood Cell 7.3 4.0 - 9.5 x10(3)/ L [facility] Red Blood Cell 3.76(L) 4.58 - 5.54 x10(6)/ L [facility] Hemoglobin 12.7(L) 13.7 - 16.5 gm/dL [facility] Hematocrit 37.6(L) 40.5 - 48.5 % [facility] Mean Cell Volume 100.0(H) 82.9 - 93.[address] [facility] Mean Cell Hemoglobin 33.8(H) 27.5 - 32.[address] [facility] Mean Cell Hemoglobin Concentration 33.8 32.0 - 35.7 gm/dL [facility] Platelet 471(H) 145 - 357 x10(3)/mc L [facility] RDW Standard Deviation 47.6(H) 36.0 - 45.[address] [facility] RDW coefficient of variation 13.1 11.4 - 13.8 % [facility] Mean Platelet Volume 9.2 7.6 - 12.[address] [facility] NRBC% auto 0.0 % [facility] NRBC Absolute 0.000 0.000 - 0.000 x10(3)/mc L [facility] Blood specimen (specimen) 05/07/2020 4:42 AM EDT 05/07/2020 5:03 AM EDT Narrative Resulting Agency Comment Spec In Lab Lynnette Khan APRN HEMATOLOGY ORDERA BLES [facility] [place] [place] [address] * (ABNORMAL) Hepatic Function Panel (05/07/2020 4:42 AM EDT) Protein, Total 7.0 6.1 - 8.0 gm/dL [facility] Albumin 3.1(L) 3.2 - 5.2 gm/dL [facility] Aspartate Aminotransferase 151(H) 0 - 39 unit/L [facility] Alanine Aminotransferase 173(H) 0 - 55 unit/L [facility] Alkaline Phosphatase 89 40 - 130 unit/L [facility] Bilirubin, Total 0.8 0.2 - 1.3 mg/dL [facility] Bilirubin, Direct 0.3 0.0 - 0.3 mg/dL [facility] Blood specimen (specimen) 05/07/2020 4:42 AM EDT 05/07/2020 5:03 AM EDT Narrative Resulting Agency Comment Spec In Lab Lynnette Khan PITCH FILLER CHEMISTRY ORDERAB LES Performing Organization Address [facility] Co de Phone Number [facility] [place] [address] * Phosphorus (05/07/2020 4:42 AM EDT) Phosphorus 3.0 2.5 - 4.5 mg/dL [facility] Blood specimen (specimen) 05/07/2020 4:42 AM EDT 05/07/2020 5:03 AM EDT Narrative Resulting Agency Comment Spec In Lab Lynnette Cornellmont PITCH FILLER CHEMISTRY ORDERAB LES Performing Organization Address [facility] de Phone Number [facility] [place] [address] * Magnesium (05/07/2020 4:42 AM EDT) Magnesium 0.81 0.69 - 1.07 mmol/L [facility] Blood specimen (specimen) 05/07/2020 4:42 AM EDT 05/07/2020 5:03 AM EDT Narrative Resulting Agency Comment Spec In Lab Lynnette Cornellmont PITCH FILLER CHEMISTRY ORDERAB LES Performing Organization Address [facility] Co de Phone Number [facility] [place] [address] * (ABNORMAL) Basic Metabolic Panel (non-fasting) (05/07/2020 4:42 AM EDT) Glucose 101 65 - 199 mg/dL [facility] Comment:Diabetes: >=200 mg/d L plus symptoms Blood Urea Nitrogen 18 10 - 20 mg/dL [facility] Creatinine 0.46(L) 0.80 - 1.50 mg/dL [facility] Sodium 138 135 - 145 mmol/L [facility] Potassium 3.4(L) 3.5 - 5.0 mmol/L [facility] Comment: Please note: ??Patients with WBC >100,000 may have falsely elevated Potassium levels. ??For accurate Potassium quantification in these patients send serum separator tube (gold top) for subsequent determinations. ??Contact the Clinical Chemistry Laboratory if there are any questions. Chloride 106 98 - 107 mmol/L [facility] Carbon Dioxide 23 22 - 31 mmol/L [facility] Anion Gap 9 5 - 15 mmol/L [facility] Calcium 8.5 8.5 - 10.5 mg/dL [facility] Est Glomerular Filtration Rate 121 >=60 mL/min/1. 73 m?? [facility] Comment: The eGFR was calculated using the CKD-EPI equation. As with all creatinine based estimates of kidney function, eGFR values calculated with the CKD-EPI equation are not accurate in patients with acute kidney failure, extremes of body mass or the acutely ill. http://[facility] eGFR 140 >=60 mL/min/1. 73 m?? [facility] Comment: The eGFR was calculated using the CKD-EPI equation. As with all creatinine based estimates of kidney function, eGFR values calculated with the CKD-EPI equation are not accurate in patients with acute kidney failure, extremes of body mass or the acutely ill. http://[facility] Blood specimen (specimen) 05/07/2020 4:42 AM EDT 05/07/2020 5:03 AM EDT Narrative Resulting Agency Comment Spec In Lab Lynnette Khan PITCH FILLER CHEMISTRY ORDERAB LES [facility] [place] [address] * Duplex Study for DVT, Bilat legs (05/06/2020 1:12 PM EDT) VB Text Report Department: Vascular Surgery Lab Patient: [id number] (OLLIE BURNETT) CPT: 75323 ICD10: I82.532;I82.402 Referring Physician: JANA ONEILL ?? Phone: Indications: ??History of left popliteal vein thrombus. Change? ICD10 Diagnosis Code: I82.402 Findings: RIGHT: Patent common femoral vein and popliteal vein with spontaneous, respirophasic Doppler waveforms that respond normally to augmentation maneuvers. The common femoral vein, saphenofemoral junction, femoral vein through the thigh and popliteal vein are fully compressible. Patent posterior tibial and peroneal veins with no evidence of thrombus. LEFT: Focal sub-acute to chronic non-occlusive popliteal vein thrombus. No identifiable change when compared to the previous exam 04/29/20. Patent common femoral vein and popliteal vein with spontaneous, respirophasic Doppler waveforms that respond normally to augmentation maneuvers. The common femoral vein, saphenofemoral junction and femoral vein through the thigh are fully compressible. Patent posterior tibial and peroneal veins with no evidence of thrombus. Interpretation: RIGHT: ??No evidence of lower extremity deep vein thrombosis. LEFT: Focal sub-acute to chronic non-occlusive lower extremity deep vein thrombosis. Comparison: No identifiable change when compared to the previous exam on 04/29/20. Electronically Signed by: JANA RESENDIZ on 2020-05-08 12:41:42 PM [facility] VB Text Report End of Report [facility] 05/06/2020 1:12 PM EDT Jana Snow APRN VASCULAR ORDERABLE S [facility] * (ABNORMAL) Differential, Automated (05/06/2020 6:13 AM EDT) Neutrophil % 75.5 % [facility] Neutrophil Absolute 7.35(H) 1.70 - 6.10 x10(3)/mc L [facility] Lymph % 14.0 % [facility] Lymphocytes Abs 1.4 0.9 - 3.2 x10(3)/mc L [facility] Monocyte % 8.1 % [facility] Monocyte Abs 0.8 0.3 - 0.9 x10(3)/[facility] LABORATORY Eos % 1.4 % [facility] Eosinophils Abs 0.1 0.0 - 0.4 x10(3)/[facility] Basophil % 0.6 % [facility] Baso Absolute 0.1 0.0 - 0.1 x10(3)/[facility] LAB[facility]ORY Immature Gran % 0.40 % [facility] Comment: Immature granulocytes(IG's)percentage and absolute count will include metamyelocytes, myelocytes, and promyelocytes. Blood smears from CBCs yielding IG's will be scanned manually for concordance. If this scan disagrees with the automated IG or if promyelocytes are noted, a manual differential will be performed. Immature Gran Absolute 0.04 0.00 - 0.04 x10(3)/[facility] Blood specimen (specimen) 05/06/2020 6:13 AM EDT 05/06/2020 6:18 AM EDT Narrative Resulting Agency Comment Spec In Lab Jana Snow APRN HEMATOLOGY ORDERAB LES Performing Organization Address City/State/[facility] Co de Phone Number [facility] [place] [address] * (ABNORMAL) Hemogram (05/06/2020 6:13 AM EDT) White Blood Cell 9.7(H) 4.0 - 9.5 x10(3)/[facility] Red Blood Cell 3.59(L) 4.58 - 5.54 x10(6)/[facility] Hemoglobin 12.0(L) 13.7 - 16.5 gm/dL [facility] Hematocrit 36.4(L) 40.5 - 48.5 % [facility] Mean Cell Volume 101.4(H) 82.9 - 93.[address] [facility] Mean Cell Hemoglobin 33.4(H) 27.5 - 32.[address] [facility] Mean Cell Hemoglobin Concentration 33.0 32.0 - 35.7 gm/dL [facility] Platelet 447(H) 145 - 357 x10(3)/mc L [facility] RDW Standard Deviation 49.1(H) 36.0 - 45.[address] [facility] RDW coefficient of variation 13.1 11.4 - 13.8 % [facility] Mean Platelet Volume 9.3 7.6 - 12.[address] [facility] NRBC% auto 0.0 % [facility] NRBC Absolute 0.000 0.000 - 0.000 x10(3)/mc L [facility] Blood specimen (specimen) 05/06/2020 6:13 AM EDT 05/06/2020 6:18 AM EDT Narrative Resulting Agency Comment Spec In Lab Jana Snow APRN HEMATOLOGY ORDERAB LES Performing Organization Address City/State/[facility] Co de Phone Number [facility] [place] [address] * (ABNORMAL) Hepatic Function Panel (05/06/2020 6:13 AM EDT) Protein, Total 6.7 6.1 - 8.0 gm/dL [facility] Albumin 3.0(L) 3.2 - 5.2 gm/dL [facility] Aspartate Aminotransferase 105(H) 0 - 39 unit/L [facility] Comment:result rechecked-dixie Alanine Aminotransferase 120(H) 0 - 55 unit/L [facility] Alkaline Phosphatase 75 40 - 130 unit/L [facility] Bilirubin, Total 0.8 0.2 - 1.3 mg/dL [facility] Bilirubin, Direct 0.3 0.0 - 0.3 mg/dL [facility] Blood specimen (specimen) 05/06/2020 6:13 AM EDT 05/06/2020 6:18 AM EDT Narrative Resulting Agency Comment Spec In Lab Lynnette Khan PITCH FILLER CHEMISTRY ORDERAB LES Performing Organization Address [facility]/ZIP Co de Phone Number [facility] [place] [address] * Phosphorus (05/06/2020 6:13 AM EDT) Phosphorus 2.8 2.5 - 4.5 mg/dL [facility] Blood specimen (specimen) 05/06/2020 6:13 AM EDT 05/06/2020 6:18 AM EDT Narrative Resulting Agency Comment Spec In Lab Lynnette Khan PITCH FILLER CHEMISTRY ORDERAB LES Performing Organization Address [facility] Co de Phone Number [facility] [place] [address] * Magnesium (05/06/2020 6:13 AM EDT) Magnesium 0.83 0.69 - 1.07 mmol/L [facility] Blood specimen (specimen) 05/06/2020 6:13 AM EDT 05/06/2020 6:18 AM EDT Narrative Resulting Agency Comment Spec In Lab Lynnette Khan PITCH FILLER CHEMISTRY ORDERAB LES Performing Organization Address [facility] Co de Phone Number [facility] [place] [address] * (ABNORMAL) Basic Metabolic Panel (non-fasting) (05/06/2020 6:13 AM EDT) Glucose 109 65 - 199 mg/dL [facility] Comment:Diabetes: >=200 mg/d L plus symptoms Blood Urea Nitrogen 17 10 - 20 mg/dL [facility] Creatinine 0.49(L) 0.80 - 1.50 mg/dL [facility] Sodium 143 135 - 145 mmol/L [facility] Potassium 3.4(L) 3.5 - 5.0 mmol/L [facility] Comment: Please note: ??Patients with WBC >100,000 may have falsely elevated Potassium levels. ??For accurate Potassium quantification in these patients send serum separator tube (gold top) for subsequent determinations. ??Contact the Clinical Chemistry Laboratory if there are any questions. Chloride 109(H) 98 - 107 mmol/L [facility] Carbon Dioxide 23 22 - 31 mmol/L [facility] Anion Gap 11 5 - 15 mmol/L [facility] Calcium 8.3(L) 8.5 - 10.5 mg/dL [facility] Est Glomerular Filtration Rate 118 >=60 mL/min/1. 73 m?? [facility] Comment: The eGFR was calculated using the CKD-EPI equation. As with all creatinine based estimates of kidney function, eGFR values calculated with the CKD-EPI equation are not accurate in patients with acute kidney failure, extremes of body mass or the acutely ill. http://[facility] eGFR 137 >=60 mL/min/1. 73 m?? [facility] Comment: The eGFR was calculated using the CKD-EPI equation. As with all creatinine based estimates of kidney function, eGFR values calculated with the CKD-EPI equation are not accurate in patients with acute kidney failure, extremes of body mass or the acutely ill. http://[facility] Blood specimen (specimen) 05/06/2020 6:13 AM EDT 05/06/2020 6:18 AM EDT Narrative Resulting Agency Comment Spec In Lab Lynnette Khan PITCH FILLER CHEMISTRY ORDERAB LES [facility] [place] [address] * Vancomycin, trough (05/05/2020 9:57 AM EDT) Vancomycin, Trough 9.2 mg/L [facility] Comment: Therapeutic range for complicated infections such as bacteremia, endocarditis, osteomyelitis, meningitis, and hospital-acquired pneumonia caused by S. aureus: 15-20 mg/L Therapeutic range for other indications: 10-15 mg/L Toxic: >20 mg/L Reference: Vancomycin Therapeutic Monitoring: Review and Recommendations from the ASHP, IDSA and SIDP Task Force. ??Am J [employer]yst [employer]. 2009; 66:82-98 Blood specimen (specimen) 05/05/2020 9:57 AM EDT 05/05/2020 10:19 AM EDT Narrative Resulting Agency Comment Spec In Lab Casey Jiménez MD CHEMISTRY ORDERABL ES [facility] [place] [address] * (ABNORMAL) Differential, Automated (05/05/2020 6:19 AM EDT) Neutrophil % 75.8 % [facility] Neutrophil Absolute 10.16(H) 1.70 - 6.10 x10(3)/mc L [facility] Lymph % 15.4 % [facility] Lymphocytes Abs 2.1 0.9 - 3.2 x10(3)/mc L [facility] Monocyte % 7.2 % [facility] Monocyte Abs 1.0(H) 0.3 - 0.9 x10(3)/mc L [facility] Eos % 0.9 % [facility] Eosinophils Abs 0.1 0.0 - 0.4 x10(3)/mc L [facility] Basophil % 0.2 % [facility] Baso Absolute 0.0 0.0 - 0.1 x10(3)/mc L [facility] Immature Gran % 0.50 % [facility] Comment: Immature granulocytes(IG's)percentage and absolute count will include metamyelocytes, myelocytes, and promyelocytes. Blood smears from CBCs yielding IG's will be scanned manually for concordance. If this scan disagrees with the automated IG or if promyelocytes are noted, a manual differential will be performed. Immature Gran Absolute 0.07(H) 0.00 - 0.04 x10(3)/ L [facility] Blood specimen (specimen) 05/05/2020 6:19 AM EDT 05/05/2020 6:46 AM EDT Narrative Resulting Agency Comment Spec In Lab Jana Snow PITCH FILLER HEMATOLOGY ORDERAB LES [facility] [place] [address] * (ABNORMAL) Hemogram (05/05/2020 6:19 AM EDT) White Blood Cell 13.4(H) 4.0 - 9.5 x10(3)/[facility] Red Blood Cell 3.57(L) 4.58 - 5.54 x10(6)/[facility] Hemoglobin 12.0(L) 13.7 - 16.5 gm/dL [facility] Hematocrit 37.0(L) 40.5 - 48.5 % [facility] Mean Cell Volume 103.6(H) 82.9 - 93.[address] [facility] Mean Cell Hemoglobin 33.6(H) 27.5 - 32.[address] [facility] Mean Cell Hemoglobin Concentration 32.4 32.0 - 35.7 gm/dL [facility] Platelet 389(H) 145 - 357 x10(3)/[facility] RDW Standard Deviation 50.3(H) 36.0 - 45.0 [facility] RDW coefficient of variation 13.2 11.4 - 13.8 % [facility] Mean Platelet Volume 9.1 7.6 - 12.9 [facility] NRBC% auto 0.0 % [facility] NRBC Absolute 0.000 0.000 - 0.000 x10(3)/ L [facility] Blood specimen (specimen) 05/05/2020 6:19 AM EDT 05/05/2020 6:46 AM EDT Narrative Resulting Agency Comment Spec In Lab Jana Snow PITCH FILLER HEMATOLOGY ORDERAB LES Performing Organization Address [facility] Co de Phone Number [facility] [place] [address] * (ABNORMAL) Phosphorus (05/05/2020 6:19 AM EDT) Pathologist [facility] Phosphorus 2.2(L) 2.5 - 4.5 mg/dL [facility] Blood specimen (specimen) 05/05/2020 6:19 AM EDT 05/05/2020 6:46 AM EDT Narrative Resulting Agency Comment Spec In Lab Lynnette C Erin PITCH FILLER CHEMISTRY ORDERAB LES Performing Organization Address [facility] Co de Phone Number [facility] [place] [address] * Magnesium (05/05/2020 6:19 AM EDT) [facility] Magnesium 0.87 0.69 - 1.07 mmol/L [facility] Blood specimen (specimen) 05/05/2020 6:19 AM EDT 05/05/2020 6:46 AM EDT Narrative Resulting Agency Comment Spec In Lab Lynnette Khan PITCH FILLER CHEMISTRY ORDERAB LES Performing Organization Address [facility] Co de Phone Number [facility] [place] [address] * (ABNORMAL) Hepatic Function Panel (05/05/2020 6:19 AM EDT) Protein, Total 6.3 6.1 - 8.0 gm/dL [facility] Albumin 2.8(L) 3.2 - 5.2 gm/dL [facility] Aspartate Aminotransferase 53(H) 0 - 39 unit/L [facility] Alanine Aminotransferase 93(H) 0 - 55 unit/L [facility] Alkaline Phosphatase 70 40 - 130 unit/L [facility] Bilirubin, Total 0.5 0.2 - 1.3 mg/dL [facility] Bilirubin, Direct 0.1 0.0 - 0.3 mg/dL [facility] Blood specimen (specimen) 05/05/2020 6:19 AM EDT 05/05/2020 6:46 AM EDT Narrative Resulting Agency Comment Spec In Lab Lynnette Khan PITCH FILLER CHEMISTRY ORDERAB LES [facility] [place] [address] * (ABNORMAL) Basic Metabolic Panel (non-fasting) (05/05/2020 6:19 AM EDT) Glucose 135 65 - 199 mg/dL [facility] Comment:Diabetes: >=200 mg/d L plus symptoms Blood Urea Nitrogen 22(H) 10 - 20 mg/dL [facility] Creatinine 0.45(L) 0.80 - 1.50 mg/dL [facility] Sodium 146(H) 135 - 145 mmol/L [facility] Potassium 3.2(L) 3.5 - 5.0 mmol/L [facility] Comment: Please note: ??Patients with WBC >100,000 may have falsely elevated Potassium levels. ??For accurate Potassium quantification in these patients send serum separator tube (gold top) for subsequent determinations. ??Contact the Clinical Chemistry Laboratory if there are any questions. Chloride 111(H) 98 - 107 mmol/L [facility] Carbon Dioxide 24 22 - 31 mmol/L [facility] Anion Gap 11 5 - 15 mmol/L [facility] Calcium 8.3(L) 8.5 - 10.5 mg/dL [facility] Est Glomerular Filtration Rate 122 >=60 mL/min/1. 73 m?? [facility] Comment: The eGFR was calculated using the CKD-EPI equation. As with all creatinine based estimates of kidney function, eGFR values calculated with the CKD-EPI equation are not accurate in patients with acute kidney failure, extremes of body mass or the acutely ill. http://[facility] eGFR 142 >=60 mL/min/1. 73 m?? [facility] Comment: The eGFR was calculated using the CKD-EPI equation. As with all creatinine based estimates of kidney function, eGFR values calculated with the CKD-EPI equation are not accurate in patients with acute kidney failure, extremes of body mass or the acutely ill. http://[facility] [facility] Blood specimen (specimen) 05/05/2020 6:19 AM EDT 05/05/2020 6:46 AM EDT Narrative Resulting Agency Comment Spec In Lab Lynnette Khan PITCH FILLER CHEMISTRY ORDERAB LES Performing Organization Address [facility]/ZIP Co de Phone Number [facility] [place] [address] * Lactate, whole blood, send to lab ([facility]) (05/04/2020 10:41 AM EDT) Lactate WB 1.5 0.5 - 2.2 mmol/L [facility] Blood specimen (specimen) 05/04/2020 10:41 AM EDT 05/04/2020 10:46 AM EDT Narrative Resulting Agency Comment Spec In Lab Jana Snow PITCH FILLER CHEMISTRY ORDERABL ES Performing Organization Address City/[facility]/ZIP Co de Phone Number [facility] [place] [address] * Scan, Peripheral Blood (05/04/2020 2:05 AM EDT) Plat estimate Increased [facility] RBC Morphology Abnormal [facility] Macrocyte 6-10 /HPF [facility] Blood specimen (specimen) 05/04/2020 2:05 AM EDT 05/04/2020 2:33 AM EDT Narrative Resulting Agency Comment Spec In Lab Jana Snow PITCH FILLER HEMATOLOGY ORDERAB LES Performing Organization Address City/[facility]/ZIP [place] [address] * (ABNORMAL) Differential, Automated (05/04/2020 2:05 AM EDT) Neutrophil % 74.4 % [facility] Neutrophil Absolute 11.86(H) 1.70 - 6.10 x10(3)/[facility] Lymph % 15.8 % [facility] Lymphocytes Abs 2.5 0.9 - 3.2 x10(3)/[facility] Monocyte % 8.5 % [facility] Monocyte Abs 1.4(H) 0.3 - 0.9 x10(3)/[facility] Eos % 0.1 % [facility] Eosinophils Abs 0.0 0.0 - 0.4 x10(3)/[facility] Basophil % 0.4 % [facility] Baso Absolute 0.1 0.0 - 0.1 x10(3)/[facility] Immature Gran % 0.80 % [facility] Comment: Immature granulocytes(IG's)percentage and absolute count will include metamyelocytes, myelocytes, and promyelocytes. Blood smears from CBCs yielding IG's will be scanned manually for concordance. If this scan disagrees with the automated IG or if promyelocytes are noted, a manual differential will be performed. Immature Gran Absolute 0.13(H) 0.00 - 0.04 x10(3)/ L [facility] Blood specimen (specimen) 05/04/2020 2:05 AM EDT 05/04/2020 2:33 AM EDT Narrative Resulting Agency Comment Spec In Lab Jana Snow PITCH FILLER HEMATOLOGY ORDERAB LES Performing Organization Address City/[facility]/ZIP Co de Phone Number [facility] [place] [address] * (ABNORMAL) Hemogram (05/04/2020 2:05 AM EDT) Pathologist [facility] White Blood Cell 16.0(H) 4.0 - 9.5 x10(3)/mc L [facility] Red Blood Cell 3.72(L) 4.58 - 5.54 x10(6)/mc L [facility] Hemoglobin 12.6(L) 13.7 - 16.5 gm/dL [facility] Hematocrit 39.1(L) 40.5 - 48.5 % [facility] Mean Cell Volume 105.1(H) 82.9 - 93.[address] [facility] Mean Cell Hemoglobin 33.9(H) 27.5 - 32.[address] [facility] Mean Cell Hemoglobin Concentration 32.2 32.0 - 35.7 gm/dL [facility] Platelet 441(H) 145 - 357 x10(3)/ L [facility] RDW Standard Deviation 53.4(H) 36.0 - 45.0 [facility] RDW coefficient of variation 13.8 11.4 - 13.8 % [facility] Mean Platelet Volume 9.2 7.6 - 12.9 [facility] NRBC% auto 0.0 % [facility] NRBC Absolute 0.000 0.000 - 0.000 x10(3)/[facility] Blood specimen (specimen) 05/04/2020 2:05 AM EDT 05/04/2020 2:33 AM EDT Narrative Resulting Agency Comment Spec In Lab Jana Snow PITCH FILLER HEMATOLOGY ORDERAB LES [facility] [place] [place] [address] * Phosphorus (05/04/2020 2:05 AM EDT) Pathologist [facility] Phosphorus 3.2 2.5 - 4.5 mg/dL [facility] Blood specimen (specimen) 05/04/2020 2:05 AM EDT 05/04/2020 2:33 AM EDT Narrative Resulting Agency Comment Spec In Lab Lynnette Khan PITCH FILLER CHEMISTRY ORDERAB LES Performing Organization Address [facility] Co de Phone Number [facility] [place] [address] * Magnesium (05/04/2020 2:05 AM EDT) Magnesium 0.90 0.69 - 1.07 mmol/L [facility] Blood specimen (specimen) 05/04/2020 2:05 AM EDT 05/04/2020 2:33 AM EDT Narrative Resulting Agency Comment Spec In Lab Lynnette Khan PITCH FILLER CHEMISTRY ORDERAB LES Performing Organization Address City/[facility] Co de Phone Number [facility] [place] [address] * (ABNORMAL) Basic Metabolic Panel (non-fasting) (05/04/2020 2:05 AM EDT) Glucose 186 65 - 199 mg/dL [facility] Comment:Diabetes: >=200 mg/d L plus symptoms Blood Urea Nitrogen 32(H) 10 - 20 mg/dL [facility] Creatinine 0.65(L) 0.80 - 1.50 mg/dL [facility] Sodium 148(H) 135 - 145 mmol/L [facility] Potassium 3.5 3.5 - 5.0 mmol/L [facility] Comment: Please note: ??Patients with WBC >100,000 may have falsely elevated Potassium levels. ??For accurate Potassium quantification in these patients send serum separator tube (gold top) for subsequent determinations. ??Contact the Clinical Chemistry Laboratory if there are any questions. Chloride 111(H) 98 - 107 mmol/L [facility] Carbon Dioxide 26 22 - 31 mmol/L [facility] Anion Gap 11 5 - 15 mmol/L [facility] Calcium 8.6 8.5 - 10.5 mg/dL [facility] Est Glomerular Filtration Rate 105 >=60 mL/min/1. 73 m?? [facility] Comment: The eGFR was calculated using the CKD-EPI equation. As with all creatinine based estimates of kidney function, eGFR values calculated with the CKD-EPI equation are not accurate in patients with acute kidney failure, extremes of body mass or the acutely ill. http://[facility] eGFR 122 >=60 mL/min/1. 73 m?? [facility] Comment: The eGFR was calculated using the CKD-EPI equation. As with all creatinine based estimates of kidney function, eGFR values calculated with the CKD-EPI equation are not accurate in patients with acute kidney failure, extremes of body mass or the acutely ill. http://[facility] Blood specimen (specimen) 05/04/2020 2:05 AM EDT 05/04/2020 2:33 AM EDT Narrative Resulting Agency Comment Spec In Lab Lynnette Khan APRN CHEMISTRY ORDERAB LES [facility] [place] [address] * (ABNORMAL) Hepatic Function Panel (05/04/2020 2:05 AM EDT) Protein, Total 6.9 6.1 - 8.0 gm/dL [facility] Albumin 3.2 3.2 - 5.2 gm/dL [facility] Aspartate Aminotransferase 100(H) 0 - 39 unit/L [facility] Comment:result rechecked-dixie Alanine Aminotransferase 137(H) 0 - 55 unit/L [facility] Alkaline Phosphatase 76 40 - 130 unit/L [facility] Bilirubin, Total 0.8 0.2 - 1.3 mg/dL [facility] Bilirubin, Direct 0.3 0.0 - 0.3 mg/dL [facility] Blood specimen (specimen) 05/04/2020 2:05 AM EDT 05/04/2020 2:33 AM EDT Narrative Resulting Agency Comment Spec In Lab Jana Snow PITCH FILLER CHEMISTRY ORDERABL ES [facility] [place] [address] * MRI Brain wo Contrast (05/03/2020 9:32 PM EDT) Anatomical Region Laterality Modality Head Magnetic Resonan ce Impressions 05/04/2020 8:57 AM EDT No new intracranial hemorrhage, worsening ventriculomegaly, or new cerebral infarction. 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 MRA generally lacks sufficient spatial resolution to evaluate for vasculitis. No evidence for vasculitis on the cerebral angiogram of 04/22/2020. Thank you for letting us participate in the care of this patient. For questions regarding this report, please contact the number below. ? Electronically signed by: Juan Carlos Diggs [facility] ([phone]), at 05/04/2020 8:57 AM Narrative 05/04/2020 8:57 AM EDT EXAMINATION: MRI BRAIN WO CONTRAST, MRI ANGIOGRAM HEAD WO CONTRAST (GENERIC) CLINICAL HISTORY: Altered mental status; Ataxia, stroke suspected Patient with right caudate ICH, scattered punctate cortical and white matter acute infarcts, increased somnolence w unremarkable CT head. 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 3-D [id number] MRA of the head is performed COMPARISON: CT head of 05/03/2020 FINDINGS: MRI brain: There is no change in the size of the intracerebral hemorrhage within the right shields radiata and centrum semiovale. The extensive intraventricular blood is similar in extent to that present on the CT of 05/03/2020. There is moderate ventriculomegaly similar to that present on the CT. The tract from a ventricular catheter placed via left frontal approach is surrounded by T2 prolongation similar in extent to the area of hypoattenuation evident on the CT in the same location. There is a small focus of T2 prolongation and decreased diffusion in the right centrum semiovale ovale (series 4, image 18) consistent with recent white matter infarction, unchanged in size from the MRI of 04/23/2020. No other recent infarction is evident. Many of the foci of hyperintense signal on diffusion-weighted imaging identified as infarcts on the MRI of 04/23/2020 and differential that includes small infarcts but also subarachnoid blood; these other foci are no longer evident on diffusion-weighted imaging. 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 MRA head: This portion the study is moderately marred by patient motion. The intracranial arteries are of normal course and caliber without focal stenosis or occlusion. Procedure Note Juan Carlos Diggs MD - 05/04/2020 EXAMINATION: MRI BRAIN WO CONTRAST, MRI ANGIOGRAM HEAD WO CONTRAST(GENERIC) CLINICAL HISTORY: Altered mental status; Ataxia, stroke suspected Patient with right caudate ICH, scattered punctate cortical and whitematter acute infarcts, increased somnolence w unremarkable CT head. Please assessfor new infarcts / abnls (accession [id number]), Multiple embolic infarcts notedafter intraventricular hemorrhage, hx of drug abuse - question vasculitis vsother etiology (accession [id number]) TECHNIQUE: MRI of the brain performed without intravenous contrast administration.3-D [id number] MRA of the head is performed COMPARISON: CT head of 05/03/2020 FINDINGS: MRI brain: There is no change in the size of the intracerebral hemorrhage within theright shields radiata and centrum semiovale. The extensive intraventricular bloodis similar in extent to that present on the CT of 05/03/2020. There ismoderate ventriculomegaly similar to that present on the CT. The tract from aventricular catheter placed via left frontal approach is surrounded by [id number] similar in extent to the area of hypoattenuation evident on the CT in thesame location. There is a small focus of T2 prolongation and decreased diffusion in theright centrum semiovale ovale (series 4, image 18) consistent with recent whitematter infarction, unchanged in size from the MRI of 04/23/2020. No other recent infarction is evident. Many of the foci of hyperintense signal on diffusion-weighted imaging identified as infarcts on the MRI of 04/23/2020and differential that includes small infarcts but also subarachnoid blood;these other foci are no longer evident on diffusion-weighted imaging.Susceptibility weighted imaging suggests the presence of low signal intensity materialabout the brainstem likely representing hemosiderosis. MRA head: This portion the study is moderately marred by patient motion.The intracranial arteries are of normal course and caliber without focalstenosis or occlusion. IMPRESSION No new intracranial hemorrhage, worsening ventriculomegaly, or newcerebral infarction. 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 MRAgenerally lacks sufficient spatial resolution to evaluate for vasculitis. Noevidence for vasculitis on the cerebral angiogram of 04/22/2020. Thank you for letting us participate in the care of this patient. Forquestions regarding this report, please contact the number below. Electronically signed by: Juan Carlos Diggs [facility]([phone]), at 05/04/2020 8:57 AM Jana Snow APRN [facility] ORDERABLES * MRI Angiogram Head wo Contrast (Generic) (05/03/2020 9:32 PM EDT) Anatomical Region Laterality Modality Head Magnetic Resonan ce Impressions 05/04/2020 8:57 AM EDT No new intracranial hemorrhage, worsening ventriculomegaly, or new cerebral infarction. 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 MRA generally lacks sufficient spatial resolution to evaluate for vasculitis. No evidence for vasculitis on the cerebral angiogram of 04/22/2020. Thank you for letting us participate in the care of this patient. For questions regarding this report, please contact the number below. ? Narrative 05/04/2020 8:57 AM EDT EXAMINATION: MRI BRAIN WO CONTRAST, MRI ANGIOGRAM HEAD WO CONTRAST (GENERIC) CLINICAL HISTORY: Altered mental status; Ataxia, stroke suspected Patient with right caudate ICH, scattered punctate cortical and white matter acute infarcts, increased somnolence w unremarkable CT head. 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 3-D sjhl-ry-ghidir MRA of the head is performed COMPARISON: CT head of 05/03/2020 FINDINGS: MRI brain: There is no change in the size of the intracerebral hemorrhage within the right shields radiata and centrum semiovale. The extensive intraventricular blood is similar in extent to that present on the CT of 05/03/2020. There is moderate ventriculomegaly similar to that present on the CT. The tract from a ventricular catheter placed via left frontal approach is surrounded by T2 prolongation similar in extent to the area of hypoattenuation evident on the CT in the same location. There is a small focus of T2 prolongation and decreased diffusion in the right centrum semiovale ovale (series 4, image 18) consistent with recent white matter infarction, unchanged in size from the MRI of 04/23/2020. No other recent infarction is evident. Many of the foci of hyperintense signal on diffusion-weighted imaging identified as infarcts on the MRI of 04/23/2020 and differential that includes small infarcts but also subarachnoid blood; these other foci are no longer evident on diffusion-weighted imaging. 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 MRA head: This portion the study is moderately marred by patient motion. The intracranial arteries are of normal course and caliber without focal stenosis or occlusion. Procedure Note Juan Carlos Diggs MD - 05/04/2020 EXAMINATION: MRI BRAIN WO CONTRAST, MRI ANGIOGRAM HEAD WO CONTRAST(GENERIC) CLINICAL HISTORY: Altered mental status; Ataxia, stroke suspected Patient with right caudate ICH, scattered punctate cortical and whitematter acute infarcts, increased somnolence w unremarkable CT head. Please assessfor new infarcts / abnls (accession [id number]), Multiple embolic infarcts notedafter intraventricular hemorrhage, hx of drug abuse - question vasculitis vsother etiology (accession [id number]) TECHNIQUE: MRI of the brain performed without intravenous contrast administration.3-D [id number] MRA of the head is performed COMPARISON: CT head of 05/03/2020 FINDINGS: MRI brain: There is no change in the size of the intracerebral hemorrhage within theright shields radiata and centrum semiovale. The extensive intraventricular bloodis similar in extent to that present on the CT of 05/03/2020. There ismoderate ventriculomegaly similar to that present on the CT. The tract from aventricular catheter placed via left frontal approach is surrounded by [id number] similar in extent to the area of hypoattenuation evident on the CT in thesame location. There is a small focus of T2 prolongation and decreased diffusion in theright centrum semiovale ovale (series 4, image 18) consistent with recent whitematter infarction, unchanged in size from the MRI of 04/23/2020. No other recent infarction is evident. Many of the foci of hyperintense signal on diffusion-weighted imaging identified as infarcts on the MRI of 04/23/2020and differential that includes small infarcts but also subarachnoid blood;these other foci are no longer evident on diffusion-weighted imaging.Susceptibility weighted imaging suggests the presence of low signal intensity materialabout the brainstem likely representing hemosiderosis. MRA head: This portion the study is moderately marred by patient motion.The intracranial arteries are of normal course and caliber without focalstenosis or occlusion. IMPRESSION No new intracranial hemorrhage, worsening ventriculomegaly, or newcerebral infarction. 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 MRAgenerally lacks sufficient spatial resolution to evaluate for vasculitis. Noevidence for vasculitis on the cerebral angiogram of 04/22/2020. Thank you for letting us participate in the care of this patient. Forquestions regarding this report, please contact the number below. Electronically signed by: Juan Carlos Diggs [facility]([phone]), at 05/04/2020 8:57 AM Jana Forde Edy PITCH [facility]ILLER IMG MRI ORDERABLES * Iron Stain, Body Fluid (05/03/2020 4:40 PM EDT) Iron Stain BF Type CSF [facility] Body Fluid Iron Stain, Fld See Comment [facility] Comment:Siderocytes Present Cerebrospinal fluid specimen (specimen) Other / Unknown 05/03/2020 4:40 PM EDT 05/03/2020 4:50 PM EDT Narrative Resulting Agency Comment Spec In Lab Joan Guadarrama MD HEMATOLOGY ORDERABL ES [facility] [place] [address] * CSF Cell Count 2nd count (05/03/2020 4:40 PM EDT) Tube # 2nd count [address] [facility] RBC CSF CT #2 6000 /mcl [facility] Cerebrospinal fluid specimen (specimen) 05/03/2020 4:40 PM EDT 05/03/2020 4:50 PM EDT Narrative Resulting Agency Comment Spec In Lab Melissa Cohen MD BODY FLUIDS AND STOO LS ORDERABLES [facility] [place] [address] * (ABNORMAL) CSF Cell Count (05/03/2020 4:40 PM EDT) Tube # counted [address] [facility] AUTO NUC CSF CT 26(H) 0 - 5 /mcl [facility] Comment: If Nucleated CSF CT result equals Zero, no smear is made and no Differential is performed. If Nucleated CSF CT result is 1-5 / mcL, a smear is made and scanned but no results are reported unless abnormalities are noted. If Nucleated CSF CT result is 6 /mcL or greater, a smear is made and manual differential is performed and reported. Nucleated CSF CT results on a CSF fluid must be correlated with clinical condition. RBC CSF CT 9,000 /mcl [facility] Segmented Neutrophils, CSF 2 % [facility] Lymphocyte, CSF 61 % [facility] Macrophage CSF 37 % [facility] Comment:Hemosiderin suspecte d-to be confirmed by iron stain. Total Cells, CSF 65 Cells [facility] Cerebrospinal fluid specimen (specimen) 05/03/2020 4:40 PM EDT 05/03/2020 4:50 PM EDT Narrative Resulting Agency Comment Spec In Lab Melissa Cohen MD BODY FLUIDS AND STOO LS ORDERABLES Performing Organization Address City/[facility] Co de Phone Number [facility] [place] [address] * CSF DESC 4 (05/03/2020 4:40 PM EDT) Tube Num CSF [address] [facility] Color, CSF 4 Red Colorless [facility] Appearance, CSF [address] [facility] Total Vol, CSF [address] [facility] Cerebrospinal fluid specimen (specimen) 05/03/2020 4:40 PM EDT 05/03/2020 4:50 PM EDT Narrative Resulting Agency Comment Spec In Lab Melissa Cohen MD BODY FLUIDS AND STOO LS ORDERABLES [facility] [place] [address] * CSF DESC 3 (05/03/2020 4:40 PM EDT) Tube Num CSF [address] [facility] Color, CSF 3 Red Colorless [facility] Appearance, CSF [address] [facility] Total Vol, CSF [address] [facility] Cerebrospinal fluid specimen (specimen) 05/03/2020 4:40 PM EDT 05/03/2020 4:50 PM EDT Narrative Resulting Agency Comment Spec In Lab Melissa Cohen MD BODY FLUIDS AND STOO LS ORDERABLES Performing Organization Address [facility] Co de Phone Number [facility] [place] [address] * CSF DESC 2 (05/03/2020 4:40 PM EDT) Tube Num CSF #[address] [facility] Color, CSF 2 Red-brown Colorless [facility] Appearance, CSF [address] [facility] Total Vol, CSF [address] [facility] Cerebrospinal fluid specimen (specimen) 05/03/2020 4:40 PM EDT 05/03/2020 4:50 PM EDT Narrative Resulting Agency Comment Spec In Lab Melissa Cohen MD BODY FLUIDS AND STOO LS ORDERABLES Performing Organization Address City/[facility] Co de Phone Number [facility] [place] [address] * CSF DESC 1 (05/03/2020 4:40 PM EDT) Tube Num CSF #[address] [facility] Color, CSF Red Colorless [facility] Appearance, CSF Hazy Clear [facility] Total Vol, CSF 3.[address] [facility] Cerebrospinal fluid specimen (specimen) 05/03/2020 4:40 PM EDT 05/03/2020 4:50 PM EDT Narrative Resulting Agency Comment Spec In Lab Melissa Cohen MD BODY FLUIDS AND STOO LS ORDERABLES Performing Organization Address [facility] Co de Phone Number [facility] [place] [address] * Body Fluid HOLD Cerebrospinal Fluid (05/03/2020 4:40 PM EDT) HOLD, FLD Sample in lab. [facility] Comment: Collection date/time has been modified to: 16:40:00. ??Previous collection date/time: 16:35:00. Corrected from Sample in lab. [NA] on 05/03/20 16:51:24 EDT by Adilia Joseph Body fluid specimen (specimen) 05/03/2020 4:40 PM EDT 05/03/2020 4:50 PM EDT Casey Jiménez MD BODY FLUIDS AND ST OOLS ORDERABLES Performing Organization Address [facility] [facility] Co de Phone Number [facility] [place] [address] * Glucose Level CSF (05/03/2020 4:40 PM EDT) Glucose, CSF 77 mg/dL [facility] Comment:CSF at equilibrium e quals approximately 60-80% of plasma glucose. Cerebrospinal fluid specimen (specimen) 05/03/2020 4:40 PM EDT 05/03/2020 4:50 PM EDT Narrative Resulting Agency Comment Spec In Lab Casey Jiménez MD BODY FLUIDS AND ST OOLS ORDERABLES Performing Organization Address [facility]/ZIP Co de Phone Number [facility] [place] [place] [address] * Protein Level CSF (05/03/2020 4:40 PM EDT) Protein, CSF 43 15 - 45 mg/dL [facility] Comment: If CSF red cells are due to traumatic tap, the measured CSF Total Protein will be increased by approximately 1 mg/dL for every 1000 RBC/UL, assuming normal serum protein, hematocrit and peripheral RBC Xanthochromia Marked [facility] Cerebrospinal fluid specimen (specimen) 05/03/2020 4:40 PM EDT 05/03/2020 4:50 PM EDT Narrative Resulting Agency Comment Spec In Lab Casey Jiménez MD BODY FLUIDS AND ST OOLS ORDERABLES [facility] [place] [place] [address] * Enterovirus PCR, CSF (05/03/2020 4:36 PM EDT) ENTV PCR Negative Negative [facility] Cerebrospinal fluid specimen (specimen) 05/03/2020 4:36 PM EDT 05/03/2020 5:06 PM EDT Narrative Resulting Agency Comment Spec In Lab Casey Jiménez MD MICROBIOLOGY - GEN ERAL ORDERABLES Performing Organization Address City/[facility]/ZIP Co de Phone Number [facility] [place] [address] * Cryptococcal Antigen CSF ([facility]) (05/03/2020 4:36 PM EDT) Cryptococcal Antigen, CSF Negative Negative [facility] Cerebrospinal fluid specimen (specimen) 05/03/2020 4:36 PM EDT 05/03/2020 5:35 PM EDT Narrative Resulting Agency Comment Spec In Lab Casey Jiménez MD MICROBIOLOGY - GEN ERAL ORDERABLES Performing Organization Address City/[facility]/ZIP Co de Phone Number [facility] [place] [address] * Fungus culture Cerebrospinal Fluid (05/03/2020 4:36 PM EDT) Fungus Culture No Fungus isolated [facility] Cerebrospinal fluid specimen (specimen) 05/03/2020 4:36 PM EDT 05/03/2020 5:06 PM EDT Narrative Resulting Agency Comment Spec In Lab Casey Jiménez MD MICROBIOLOGY - GEN ERAL ORDERABLES Performing Organization Address [facility] Co de Phone Number [facility] [place] [address] * CSF Culture (05/03/2020 4:36 PM EDT) Central Nervous System Culture No growth [facility] Gram Stain Cytocentrifuge Gram Stain performed No Neutrophils seen. No microorganisms seen. [facility] Cerebrospinal fluid specimen (specimen) 05/03/2020 4:36 PM EDT 05/03/2020 5:06 PM EDT Narrative Resulting Agency Comment Spec In Lab Casey Jiménez MD MICROBIOLOGY - GEN ERAL ORDERABLES Performing Organization Address [facility] de Phone Number [facility] [place] [address] * XR Chest One View (05/03/2020 1:59 PM EDT) Anatomical Region Laterality Modality Chest N/A Digital Radiogra phy Impressions 05/03/2020 2:02 PM EDT No acute cardiopulmonary pathology identified. Thank you for letting us participate in the care of this patient. For questions regarding this report, please contact the number below. ? Electronically signed by: Claritza Diane [facility] ([phone]), at 05/03/2020 2:02 PM Narrative 05/03/2020 2:02 PM EDT EXAMINATION: XR CHEST ONE VIEW CLINICAL HISTORY: Please evaluate for PNA, elevated wcc and rhonci TECHNIQUE: Portable AP chest radiograph on ??05/03/2020 at 1353 hours. COMPARISON: 04/28/2020. FINDINGS: Equipment in unchanged position. Lungs appear clear. Unchanged cardiomediastinal silhouette and vascular markings. No pneumothorax or pleural fluid is seen. No interval osseous findings. Procedure Note Claritza Diane MD - 05/03/2020 EXAMINATION: XR CHEST ONE VIEW CLINICAL HISTORY: Please evaluate for PNA, elevated wcc and rhonci TECHNIQUE: Portable AP chest radiograph on 05/03/2020 at 1353 hours. COMPARISON: 04/28/2020. FINDINGS: Equipment in unchanged position. Lungs appear clear. Unchanged cardiomediastinal silhouette and vascular markings. No pneumothorax orpleural fluid is seen. No interval osseous findings. IMPRESSION No acute cardiopulmonary pathology identified. Thank you for letting us participate in the care of this patient. Forquestions regarding this report, please contact the number below. Casey Jiménez MD IMG DX ORDERABLES * (ABNORMAL) BLOOD GAS 2 ARTERIAL (05/03/2020 1:06 PM EDT) pH, Arterial 7.40 7.35 - 7.45 [facility] PCO2, Arterial 42 35 - [address] [facility] PO2, Arterial 200(H) 85 - [address] [facility] Bicarbonate, Arterial 25.4 20.0 - 26.0 mmol/L [facility] Base Excess, Arterial 0.5 -3.0 - 3.0 mmol/L [facility] Hgb Blood Gas 13.7 13.7 - 16.5 gm/dL [facility] Oxyhemoglobin, Arterial 98.1(H) 94.0 - 97.0 % [facility] Carboxyhemoglob in, Arterial 0.4 % [facility] Comment: Nonsmokers: 0.5-1.5% COHB Smokers: Variable, but usually less than 10% Toxic: 20-30% COHB Lethal: Greater than 60% COHB Methemoglobin, Arterial 0.6 <=1.5 % [facility] Na Whole Blood 144 135 - 145 mmol/L [facility] K Whole Blood 3.8 3.5 - 5.0 mmol/L [facility] Comment: Please note: Patients with WBC >100,000 may have falsely elevated Potassium levels. Contact the Clinical Chemistry Laboratory if there are any questions. ICa Whole Blood 1.17 1.15 - 1.33 mmol/L [facility] Comment: Note: ??Total bilirubin higher than 20 mg/dL may lead to falsely low ionized calcium. CL Whole Blood 108(H) 98 - 107 mmol/L [facility] Gluc Whole Bld 162 65 - 199 mg/dL [facility] Comment:Diabetes: >=200 mg/d L plus symptoms. Lactate WB 1.1 0.5 - 2.2 mmol/L [facility] Blood specimen (specimen) 05/03/2020 1:06 PM EDT 05/03/2020 1:06 PM EDT Casey Jiménez MD POINT OF CARE TEST ORDERABLES Performing Organization Address City/[facility]/ZIP Co de Phone Number [facility] [place] [address] * Blood culture (05/03/2020 12:42 PM EDT) Blood Culture No growth at [address] [facility] Blood specimen (specimen) STRUCTURE OF RIGHT HAND / Unknown 05/03/2020 12:42 PM EDT 05/03/2020 2:00 PM EDT Narrative Resulting Agency Comment Spec In Lab Jana Snow APRN MICROBIOLOGY - BLO OD ORDERABLES Performing Organization Address City/[facility]/ZIP Co de Phone Number [facility] [place] [address] * Blood culture (05/03/2020 12:32 PM EDT) Blood Culture No growth at [address] [facility] Blood specimen (specimen) STRUCTURE OF LEFT THUMB / Unknown 05/03/2020 12:32 PM EDT 05/03/2020 1:59 PM EDT Narrative Resulting Agency Comment Spec In Lab Jana Snow SHAWN MICROBIOLOGY - BLO OD ORDERABLES [facility] [place] [address] * EEG awake, asleep, drowsy, routine (05/03/2020 11:58 AM EDT) Narrative Thor Marx MD - 05/03/2020 11:58 AM EDT Thor Marx MD ? 05/03/2020 ??6:40 PM [facility] Department of Neurology Routine Outpatient EEG Report Name of the Patient: ??Ollie Burnett Sr. Date of : ?1960 Date of Service: ? 05/03/2020 Referring physician: ?Lu Niño MD Interpreting physician: Thor Marx MD, Deon Presley MD BRIEF HISTORY: Ollie Burnett Sr. is a 60 y.o. year old patient with Right IPH with IVH, who is less responsive today. MEDICATIONS: Current Facility-Administered Medications Medication Dose Route Frequency Provider Last Rate Last Dose ? ? nicotine (NICODERM CQ) 21 mg/24 hr patch 21 mg ??1 patch Transdermal Daily Lu Niño MD ?? 21 mg at 05/03/20 0850 And ? ? nicotine (NICODERM CQ) 21 mg/24 hr patch Patch Verification ??1 patch Transdermal BID Lu Niño MD ? And ? ? nicotine (NICODERM CQ) 21 mg/24 hr patch Patch Removal ??1 patch Transdermal Daily Lu Niño MD ? enoxaparin (LOVENOX) injection 40 mg ??40 mg Subcutaneous QPM Lu Niño MD ?? 40 mg at 05/02/20 1637 ? ? free water bolus 200 mL ??200 mL Per NG tube 4 Times Daily Lu Niño MD ?? 200 mL at 05/03/20 0900 ? ? amLODIPine (Norvasc) tablet 10 mg ??10 mg Per NG tube Daily Jana Oneill APRN ?? 10 mg at 05/03/20 0850 ? ? folic acid (Folvite) tablet 1,000 mcg ??1 mg Per NG tube Daily Jana Oneill APRN ?? 1,000 mcg at 05/03/20 0850 ? ? lisinopriL (Prinivil;Zestril) tablet 40 mg ??40 mg Per NG tube Daily Jana Oneill APRN ?? 40 mg at 05/03/20 0850 ? ? modafiniL (Provigil) tablet 100 mg ??100 mg Per NG tube BID Jana Oneill APRN ?? 100 mg at 05/03/20 1149 ? ? propranolol (Inderal) (4 mg/mL) oral liquid 40 mg ??40 mg Per NG tube Q8H JOSE Jana Oneill APRN ?? 40 mg at 05/03/20 0530 ? ? thiamine (Vitamin B1) tablet 100 mg ??100 mg Per NG tube Daily Jana Oneill APRN ?? 100 mg at 05/03/20 0850 ? ? tube feeding diet ??1,080 mL Per NG tube Continuous Lynnette Khan APRN 45 mL/hr at 05/02/20 2139 1,080 mL at 05/02/20 2139 ? ? famotidine (Pepcid) tablet 40 mg ??40 mg Per NG tube Daily Lu Niño MD ?? 40 mg at 05/03/20 0850 ? ? albuteroL 90 mcg/actuation inhaler 2 puff ??2 puff Inhalation Q6H PRN Lu Niño MD ? multivitamin with minerals (THERA-M) tablet 1 tablet ??1 tablet Oral Daily Lu Niño MD ?? 1 tablet at 05/03/20 0850 ? ? labetalol (NORMODYNE,TRANDATE) injection 10-20 mg ??10-20 mg Intravenous Q15 Min PRN Lu Niño MD ?? 10 mg at 05/01/20 2202 METHODS: A 21 channel digitized electroencephalogram was performed in [place] [facility] The 10/20 international system of electrode placement was used and bipolar and referential electrode montages were recorded. ??In addition to EEG the patient was monitored for EKG and lateral/vertical eye movements. Video was recorded during the session. The duration of the recording was 73 minutes. DIE CUTTER DIAMOND'S REPORT: Performed by: CM Patient was not sleep deprived. Patient's mental state during recording was stable. Sleep was not attained. Photic stimulation was not performed. Hyperventilation was not performed. Effort was n/a Movement and other artifact was not significant Comments: ELECTROENCEPHALOGRAPHER'S REPORT: Background The background was a mixture of delta, beta, and to a lesser extent, theta and alpha. There was a very mild asymmetry with somewhat lower frequencies seen on the right hemisphere. There was moderate anterior-posterior gradient. Sleep Stage II sleep was not obtained. Hyperventilation Hyperventilation was not performed. Photic Stimulation Photic stimulation was not performed. Abnormal EEG Activity Occasional sharp waves at T4, rare sharp waves at T3. EKG EKG revealed normal sinus rhythm. PRIOR EEG: No previous EEG reports were available. INTERPRETATION: This EEG is abnormal due to right greater than left sharp waves, as well as diffuse slowing, more pronounced in the right hemisphere. CLINICAL CORRELATION: This EEG demonstrates focal cerebral dysfunction in the right hemisphere, with a cortical irritability and propensity for seizures in this region, consistent with known intraparenchymal hemorrhage location. There is also a diffuse cerebral dysfunction of non-specific etiology. No seizures seen. Neurology Attending I have personally reviewed the EEG, and I agree with the details as written. ?? The above report was formulated in discussion with me at the time of EEG reading, and I agree with it as documented. Thor Marx MD [place] [address] Pager: [phone], #[phone] Email: [email or web address] Deon Presley MD Clinical Neurophysiology Fellow Pager: [phone] 05/03/2020 Casey Jiménez MD NEUROLOGY ORDERABL ES * CT Head wo Contrast (Generic) (05/03/2020 10:07 AM EDT) Anatomical Region Laterality Modality Head Computed Tomogra phy Impressions 05/03/2020 10:12 AM EDT 1. ??Stable ventricular caliber following removal of the left extraventricular drain. 2. ??Stable intraventricular hemorrhage. Thank you for letting us participate in the care of this patient. For questions regarding this report, please contact the number below. ? Electronically signed by: Tiny Cervantes [facility] ([phone]), at 05/03/2020 10:12 AM Narrative 05/03/2020 10:12 AM EDT EXAMINATION: CT HEAD WO CONTRAST (GENERIC) CLINICAL HISTORY: Seizure, nontraumatic (Age > 41y) TECHNIQUE: CT head performed without intravenous contrast administration. COMPARISON: CT head 05/01/2020 FINDINGS: The left-sided extraventricular drain has been removed and there is a small amount of air within the temporal horn of the left lateral ventricle. Stable intraventricular hemorrhage within the lateral ventricles. The ventricular caliber remains mildly enlarged but is stable. No new intracranial hemorrhage, or evidence of large territorial infarct. Osseous structures are stable. Procedure Note Tiny Cervantes MD - 05/03/2020 EXAMINATION: CT HEAD WO CONTRAST (GENERIC) CLINICAL HISTORY: Seizure, nontraumatic (Age > 41y) TECHNIQUE: CT head performed without intravenous contrast administration. COMPARISON: CT head 05/01/2020 FINDINGS: The left-sided extraventricular drain has been removed and there is asmall amount of air within the temporal horn of the left lateral ventricle.Stable intraventricular hemorrhage within the lateral ventricles. Theventricular caliber remains mildly enlarged but is stable. No new intracranial hemorrhage, or evidence of large territorialinfarct. Osseous structures are stable. IMPRESSION 1. Stable ventricular caliber following removal of the leftextraventricular drain. 2. Stable intraventricular hemorrhage. Thank you for letting us participate in the care of this patient. Forquestions regarding this report, please contact the number below. Electronically signed by: Tiny Cervantes [facility] ([phone]),at 05/03/2020 10:12 AM Casey Jiménez MD IMG CT ORDERABLES * Lipid Panel (No Reflex) (05/03/2020 1:14 AM EDT) Cholesterol, Total 138 mg/dL [facility] Comment: Lower Risk: <200 mg/dL Average Risk: 200-239 mg/dL Higher Risk: >ux=679 mg/dL Triglyceride 150 mg/dL [facility] Comment: Average Risk/Lower Risk: <150 mg/dL Borderline High Risk: 150-199 mg/dL High Risk: 200-499 mg/dL Very High Risk: >ul=144 mg/dL HDL Cholesterol 30 mg/dL [facility] Comment: Males: ?? Higher Risk: <40 mg/dL Females: ?? HIgher Risk: <50 mg/dL LDL Cholesterol 78 mg/dL [facility] Comment: Lowest Risk: <100 mg/dL Lower Risk: 100-129 mg/dL Borderline High Risk: 130-159 mg/dL High Risk: 160-189 mg/dL Very High Risk: >ub=080 mg/dL Cholesterol/HDL Ratio 4.[address] [facility] Lipid Interpretation See Note [facility] Comment: Lipid management should be guided by a patient? s ASCVD risk, goals and preferences. ACC/AHA Guidelines recommend high intensity statin if clinical ASCVD or LDL greater than or equal to 190 mg/dL. http://Join [email or web address] [email or web address]/FEG-TEQ-Urbuqnbcm Adults aged 40-75 with LDL 70-189 mg/dL should have their 10 year ASCVD risk estimated with the ACC/AHA ASCVD risk quartz orientator http://tools.acc.org/CVKBP-Rtri-Pcbkwjnvm/ Statin should be discussed if risk greater [...] Lab Jana Snow APRN CHEMISTRY ORDERABL ES [facility] [place] [address] * Hemoglobin A1c (05/03/2020 1:14 AM EDT) Hemoglobin A1c 5.4 4.3 - 5.6 % [facility] Comment: Reference Range: 4.3 - 5.6% 5.7 - 6.4% - Increased Risk of Developing Diabetes Mellitus >= 6.5% - Consistent with diagnosis of Diabetes Mellitus In the absence of hyperglycemia (i.e. plasma glucose > 200 mg/dL) or classic symptoms of hyperglycemia a repeat measurement of HbA1c should be performed on a separate sample to confirm the diagnosis. Diagnosis and Classification of Diabetes Mellitus, Diabetes Care 2013; 36: Suppl. 1, X71-13 Estimated Average Glucose 107 mg/dL [facility] Comment: eAG equivalents for HbA1c percentages: HbA1c(%) ?eAG(mg/dL) 6.0 ?126 6.5 ?140 7.0 ?154 7.5 ?169 8.0 ?183 8.5 ?197 9.0 ?212 9.5 ?226 10.0 ? 240 Limitations: The eAG calculation has not been validated on women, individuals below 18 years old and above 70 years old, and individuals with hemoglobinopathies. Additional resources are available on the ADA website. Aiden CALZADA, Crystal J, Aide R, et al. ??Translating the A1C assay into estimated average glucose values. ??Diabetes Care 2008:31(8):7540-9377. Blood specimen (specimen) Venous Draw / Unknown 05/03/2020 1:14 AM EDT 05/03/2020 6:38 AM EDT Narrative Resulting Agency Comment Spec In Lab Jana Snow APRN CHEMISTRY ORDERABL ES [facility] [place] [address] * (ABNORMAL) Differential, Automated (05/03/2020 1:14 AM EDT) Neutrophil % 65.7 % [facility] Neutrophil Absolute 9.18(H) 1.70 - 6.10 x10(3)/mc L [facility] Lymph % 22.5 % [facility] Lymphocytes Abs 3.1 0.9 - 3.2 x10(3)/mc L [facility] Monocyte % 10.5 % [facility] Monocyte Abs 1.5(H) 0.3 - 0.9 x10(3)/mc L [facility] Eos % 0.4 % [facility] Eosinophils Abs 0.0 0.0 - 0.4 x10(3)/mc L [facility] Basophil % 0.4 % [facility] Baso Absolute 0.1 0.0 - 0.1 x10(3)/ L [facility] Immature Gran % 0.50 % [facility] Comment: Immature granulocytes(IG's)percentage and absolute count will include metamyelocytes, myelocytes, and promyelocytes. Blood smears from CBCs yielding IG's will be scanned manually for concordance. If this scan disagrees with the automated IG or if promyelocytes are noted, a manual differential will be performed. Immature Gran Absolute 0.07(H) 0.00 - 0.04 x10(3)/ L [facility] Blood specimen (specimen) 05/03/2020 1:14 AM EDT 05/03/2020 1:29 AM EDT Narrative Resulting Agency Comment Spec In Lab Hussein Lo MD HEMATOLOGY MARZENA PEDRAZA Performing Organization Address City/State/[facility] Co de Phone Number [facility] [place] [address] * (ABNORMAL) Hemogram (05/03/2020 1:14 AM EDT) White Blood Cell 14.0(H) 4.0 - 9.5 x10(3)/[facility] Red Blood Cell 3.80(L) 4.58 - 5.54 x10(6)/ L [facility] Hemoglobin 12.9(L) 13.7 - 16.5 gm/dL [facility] Hematocrit 38.9(L) 40.5 - 48.5 % [facility] Mean Cell Volume 102.4(H) 82.9 - 93.[address] [facility] Mean Cell Hemoglobin 33.9(H) 27.5 - 32.[address] [facility] Mean Cell Hemoglobin Concentration 33.2 32.0 - 35.7 gm/dL [facility] Platelet 441(H) 145 - 357 x10(3)/[facility] RDW Standard Deviation 51.2(H) 36.0 - 45.[address] [facility] RDW coefficient of variation 13.7 11.4 - 13.8 % [facility] Mean Platelet Volume 9.1 7.6 - 12.[address] [facility] NRBC% auto 0.0 % [facility] NRBC Absolute 0.000 0.000 - 0.000 x10(3)/mc L [facility] Blood specimen (specimen) 05/03/2020 1:14 AM EDT 05/03/2020 1:29 AM EDT Narrative Resulting Agency Comment Spec In Lab Hussein Lo MD HEMATOLOGY ORDE KEILA Performing Organization Address [facility]/ZIP Co de Phone Number [facility] [place] [address] * Phosphorus (05/03/2020 1:14 AM EDT) Phosphorus 3.8 2.5 - 4.5 mg/dL [facility] Blood specimen (specimen) 05/03/2020 1:14 AM EDT 05/03/2020 1:29 AM EDT Narrative Resulting Agency Comment Spec In Lab Jana Trinh MD CHEMISTRY ORDERABLES Performing Organization Address [facility] Co de Phone Number [facility] [place] [address] * (ABNORMAL) Basic Metabolic Panel (non-fasting) (05/03/2020 1:14 AM EDT) Glucose 155 65 - 199 mg/dL [facility] Comment:Diabetes: >=200 mg/d L plus symptoms Blood Urea Nitrogen 31(H) 10 - 20 mg/dL [facility] Creatinine 0.58(L) 0.80 - 1.50 mg/dL [facility] Sodium 144 135 - 145 mmol/L [facility] Potassium 3.7 3.5 - 5.0 mmol/L [facility] Comment: Please note: ??Patients with WBC >100,000 may have falsely elevated Potassium levels. ??For accurate Potassium quantification in these patients send serum separator tube (gold top) for subsequent determinations. ??Contact the Clinical Chemistry Laboratory if there are any questions. Chloride 106 98 - 107 mmol/L [facility] Carbon Dioxide 27 22 - 31 mmol/L [facility] Anion Gap 11 5 - 15 mmol/L [facility] Calcium 9.1 8.5 - 10.5 mg/dL [facility] Est Glomerular Filtration Rate 110 >=60 mL/min/1. 73 m?? [facility] Comment: The eGFR was calculated using the CKD-EPI equation. As with all creatinine based estimates of kidney function, eGFR values calculated with the CKD-EPI equation are not accurate in patients with acute kidney failure, extremes of body mass or the acutely ill. http://[facility]/[facility] eGFR 128 >=60 mL/min/1. 73 m?? [facility] Comment: The eGFR was calculated using the CKD-EPI equation. As with all creatinine based estimates of kidney function, eGFR values calculated with the CKD-EPI equation are not accurate in patients with acute kidney failure, extremes of body mass or the acutely ill. http://[facility]/[facility] Blood specimen (specimen) 05/03/2020 1:14 AM EDT 05/03/2020 1:29 AM EDT Narrative Resulting Agency Comment Spec In Lab Jana Trinh MD CHEMISTRY ORDERABLES [facility] [place] [address] * Magnesium (05/03/2020 1:14 AM EDT) Magnesium 0.91 0.69 - 1.07 mmol/L [facility] Blood specimen (specimen) 05/03/2020 1:14 AM EDT 05/03/2020 1:29 AM EDT Narrative Resulting Agency Comment Spec In Lab Jana Trinh MD CHEMISTRY ORDERABLES [facility] [place] [address] * Ammonia (05/02/2020 3:32 AM EDT) Ammonia 53 16 - 60 mcmol/L [facility] Blood specimen (specimen) 05/02/2020 3:32 AM EDT 05/02/2020 4:36 AM EDT Narrative Resulting Agency Comment Spec In Lab Casey Jiménez MD CHEMISTRY ORDERABL ES Performing Organization Address [facility] Co de Phone Number [facility] [place] [address] * (ABNORMAL) Differential, Automated (05/02/2020 3:32 AM EDT) Pathologist [facility] Neutrophil % 64.1 % [facility] Neutrophil Absolute 7.76(H) 1.70 - 6.10 x10(3)/mc L [facility] Lymph % 22.9 % [facility] Lymphocytes Abs 2.8 0.9 - 3.2 x10(3)/mc L [facility] Monocyte % 11.6 % [facility] Monocyte Abs 1.4(H) 0.3 - 0.9 x10(3)/mc L [facility] Eos % 0.3 % [facility] Eosinophils Abs 0.0 0.0 - 0.4 x10(3)/mc L [facility] Basophil % 0.4 % [facility] Baso Absolute 0.0 0.0 - 0.1 x10(3)/mc L [facility] Immature Gran % 0.70 % [facility] Comment: Immature granulocytes(IG's)percentage and absolute count will include metamyelocytes, myelocytes, and promyelocytes. Blood smears from CBCs yielding IG's will be scanned manually for concordance. If this scan disagrees with the automated IG or if promyelocytes are noted, a manual differential will be performed. Immature Gran Absolute 0.09(H) 0.00 - 0.04 x10(3)/ L [facility] Blood specimen (specimen) 05/02/2020 3:32 AM EDT 05/02/2020 3:43 AM EDT Narrative Resulting Agency Comment Spec In Lab Hussein Lo MD HEMATOLOGY MARZENA PEDRAZA [facility] [place] [place] [address] * (ABNORMAL) Hemogram (05/02/2020 3:32 AM EDT) White Blood Cell 12.1(H) 4.0 - 9.5 x10(3)/mc L [facility] Red Blood Cell 3.83(L) 4.58 - 5.54 x10(6)/[facility] Hemoglobin 12.8(L) 13.7 - 16.5 gm/dL [facility] Hematocrit 38.7(L) 40.5 - 48.5 % [facility] Mean Cell Volume 101.0(H) 82.9 - 93.[address] [facility] Mean Cell Hemoglobin 33.4(H) 27.5 - 32.[address] [facility] Mean Cell Hemoglobin Concentration 33.1 32.0 - 35.7 gm/dL [facility] Platelet 433(H) 145 - 357 x10(3)/ L [facility] RDW Standard Deviation 50.1(H) 36.0 - 45.[address] [facility] RDW coefficient of variation 13.6 11.4 - 13.8 % [facility] Mean Platelet Volume 9.0 7.6 - 12.[address] [facility] NRBC% auto 0.0 % [facility] NRBC Absolute 0.000 0.000 - 0.000 x10(3)/ L [facility] Blood specimen (specimen) 05/02/2020 3:32 AM EDT 05/02/2020 3:43 AM EDT Narrative Resulting Agency Comment Spec In Lab Hussein Lo MD HEMATOLOGY MARZENA PEDRAZA Performing Organization Address [facility] Co de Phone Number [facility] [place] [address] * Phosphorus (05/02/2020 3:32 AM EDT) Phosphorus 3.9 2.5 - 4.5 mg/dL [facility] Blood specimen (specimen) 05/02/2020 3:32 AM EDT 05/02/2020 3:43 AM EDT Narrative Resulting Agency Comment Spec In Lab Casey Jiménez MD CHEMISTRY ORDERABL ES Performing Organization Address [facility] de Phone Number [facility] [place] [address] * Magnesium (05/02/2020 3:32 AM EDT) Magnesium 0.96 0.69 - 1.07 mmol/L [facility] Blood specimen (specimen) 05/02/2020 3:32 AM EDT 05/02/2020 3:43 AM EDT Narrative Resulting Agency Comment Spec In Lab Casey Jiménez MD CHEMISTRY ORDERABL ES Performing Organization Address [facility] Co de Phone Number [facility] [place] [address] * (ABNORMAL) Basic Metabolic Panel (non-fasting) (05/02/2020 3:32 AM EDT) Glucose 179 65 - 199 mg/dL [facility] Comment:Diabetes: >=200 mg/d L plus symptoms Blood Urea Nitrogen 30(H) 10 - 20 mg/dL [facility] Creatinine 0.58(L) 0.80 - 1.50 mg/dL [facility] Sodium 147(H) 135 - 145 mmol/L [facility] Potassium 4.0 3.5 - 5.0 mmol/L [facility] Comment: Please note: ??Patients with WBC >100,000 may have falsely elevated Potassium levels. ??For accurate Potassium quantification in these patients send serum separator tube (gold top) for subsequent determinations. ??Contact the Clinical Chemistry Laboratory if there are any questions. Chloride 108(H) 98 - 107 mmol/L [facility] Carbon Dioxide 25 22 - 31 mmol/L [facility] Anion Gap 14 5 - 15 mmol/L [facility] Calcium 9.2 8.5 - 10.5 mg/dL [facility] Est Glomerular Filtration Rate 110 >=60 mL/min/1. 73 m?? [facility] Comment: The eGFR was calculated using the CKD-EPI equation. As with all creatinine based estimates of kidney function, eGFR values calculated with the CKD-EPI equation are not accurate in patients with acute kidney failure, extremes of body mass or the acutely ill. http://[facility] eGFR 128 >=60 mL/min/1. 73 m?? [facility] Comment: The eGFR was calculated using the CKD-EPI equation. As with all creatinine based estimates of kidney function, eGFR values calculated with the CKD-EPI equation are not accurate in patients with acute kidney failure, extremes of body mass or the acutely ill. http://[facility]/DHnkf Blood specimen (specimen) 05/02/2020 3:32 AM EDT 05/02/2020 3:43 AM EDT Narrative Resulting Agency Comment Spec In Lab Casey Jiménez MD CHEMISTRY ORDERABL ES [facility] [place] [address] * Lavender Tube HOLD (05/02/2020 1:40 AM EDT) Lavender Hold Sample in lab. [facility] Blood specimen (specimen) Venous Draw / Unknown 05/02/2020 1:40 AM EDT 05/02/2020 1:49 AM EDT Lu Niño MD HEMATOLOGY ORDERABLE S Performing Organization Address [facility] Co de Phone Number [facility] [place] [address] * TSH (05/01/2020 7:00 PM EDT) Thyroid Stimulating Hormone 1.66 0.27 - 4.20 mcIU/mL [facility] Blood specimen (specimen) 05/01/2020 7:00 PM EDT 05/01/2020 7:19 PM EDT Narrative Resulting Agency Comment Spec In Lab Jana Trinh MD CHEMISTRY ORDERABLES Performing Organization Address [facility] Co de Phone Number [facility] [place] [address] * Folate, serum (05/01/2020 7:00 PM EDT) Folate 18.7 4.8 - 24.2 ng/mL [facility] Blood specimen (specimen) 05/01/2020 7:00 PM EDT 05/01/2020 7:19 PM EDT Narrative Resulting Agency Comment Spec In Lab Jana Trinh MD CHEMISTRY ORDERABLES Performing Organization Address [facility] Co de Phone Number [facility] [place] [address] * (ABNORMAL) Vitamin B12 (05/01/2020 7:00 PM EDT) Vitamin B12 1,289(H) 232 - 1,245 pg/mL [facility] Blood specimen (specimen) 05/01/2020 7:00 PM EDT 05/01/2020 7:19 PM EDT Narrative Resulting Agency Comment Spec In Lab Jana Trinh MD CHEMISTRY ORDERABLES Performing Organization Address [facility]/ZIP Co de Phone Number [facility] [place] [address] * (ABNORMAL) Hepatic Function Panel (05/01/2020 7:00 PM EDT) [facility] Protein, Total 7.6 6.1 - 8.0 gm/dL [facility] Albumin 3.7 3.2 - 5.2 gm/dL [facility] Aspartate Aminotransferase 54(H) 0 - 39 unit/L [facility] Alanine Aminotransferase 93(H) 0 - 55 unit/L [facility] Alkaline Phosphatase 84 40 - 130 unit/L [facility] Bilirubin, Total 0.3 0.2 - 1.3 mg/dL [facility] Bilirubin, Direct 0.1 0.0 - 0.3 mg/dL [facility] Blood specimen (specimen) 05/01/2020 7:00 PM EDT 05/01/2020 7:19 PM EDT Narrative Resulting Agency Comment Spec In Lab Jana Trinh MD CHEMISTRY ORDERABLES Performing Organization Address [facility] Co de Phone Number [facility] [place] [address] * (ABNORMAL) Urinalysis Microscopic Exam (05/01/2020 6:58 PM EDT) [facility] RBC, Urine <1 0 - 3 /HPF [facility] WBC, Urine 1 0 - 3 /HPF [facility] Bacteria, Urine Occasional (A) None /HPF [facility] Squamous Epithelial Cells Raw Data, Urine 2 <=4 /HPF [facility] Hyaline Casts, Urine 2 0 - 2 /LPF [facility] Amorphous Crystals, Urine Many(A) None /HPF [facility] Urine specimen (specimen) 05/01/2020 6:58 PM EDT 05/01/2020 7:11 PM EDT Narrative Resulting Agency Comment Spec In Lab Jana Snow PITCH FILLER URINE ORDERABLES Performing Organization Address City/[facility]/ZIP Co de Phone Number [facility] [place] [address] * (ABNORMAL) Urinalysis with reflex Culture (05/01/2020 6:58 PM EDT) Glucose, Urine Dipstick Negative Negative mg/dL [facility] Protein, Urine Dipstick Trace(A) Negative mg/dL [facility] Bilirubin, Urine Dipstick Negative Negative mg/dL [facility] Comment: Clinical correlation required for positive Urine Bilirubin results as false positive may occur with some drugs and drug related products. If a false positive is suspected a serum total bilirubin should be considered if clinically indicated. Urobilinogen, Urine Dipstick Normal Normal mg/dL [facility] pH, Urn (dipstick) 8.5(H) 5.0 - 8.0 [facility] Blood, Urine Dipstick Negative Negative mg/dL [facility] Ketone, Urine Dipstick Negative Negative mg/dL [facility] Nitrite, Urine Dipstick Negative Negative [facility] Leukocytes, Urine Dipstick Negative Negative [facility] Appearance, Urine Dipstick Turbid(A) Clear [facility] Specific [place] Urine Automated 1.020 1.006 - 1.030 [facility] Color, Urine Dipstick Yellow Yellow [facility] Reflex to Culture No [facility] Urine specimen (specimen) 05/01/2020 6:58 PM EDT 05/01/2020 7:11 PM EDT Narrative Resulting Agency Comment Spec In Lab Jana Snow APRN URINE ORDERABLES Performing Organization Address City/[facility]/ZIP Co de Phone Number [facility] [place] [address] * Potassium (05/01/2020 12:35 PM EDT) Potassium 3.9 3.5 - 5.0 mmol/L [facility] Comment: Please note: ??Patients with WBC >100,000 may have falsely elevated Potassium levels. ??For accurate Potassium quantification in these patients send serum separator tube (gold top) for subsequent determinations. ??Contact the Clinical Chemistry Laboratory if there are any questions. Blood specimen (specimen) 05/01/2020 12:35 PM EDT 05/01/2020 1:05 PM EDT Narrative Resulting Agency Comment Spec In Lab Jana Trinh MD CHEMISTRY ORDERABLES [facility] [place] [address] * Duplex for DVT, arm, bilat (05/01/2020 10:31 AM EDT) VB Text Report Department: Vascular Surgery Lab Patient: [id number] (OLLIE BURNETT) CPT: 09389 ICD10: I82.B12;I82.613; I61.5 Referring Physician: JANA TRINH ?? Phone: Indications: bilateral arm swelling in patient with h/o ETOH and drug abuse, known ICH and Left leg DVT; ? UE DVT ICD10 Diagnosis Code: I82.B12, I82.613, I61.5 Findings: Right: Acute, superficial thrombus in the median cubital vein just distal to the antecubital fossa. The axillary, brachial, cephalic and basilic veins are patent and fully compressible with no evidence of thrombus. The internal jugular vein is patent and fully compressible with no evidence of thrombus. While compression maneuvers cannot be performed on the subclavian or innominate veins, there is no pulsed Doppler or color Doppler evidence to suggest thrombus in these veins. Left: Focal, non-occlusive deep venous thrombosis in the subclavian vein. Acute, superficial thrombus in the basilic vein of the upper arm. The axillary, brachial, and cephalic veins are patent and fully compressible with no evidence of thrombus. The internal jugular vein is patent and fully compressible with no evidence of thrombus. While compression maneuvers cannot be performed on the innominate vein, there is no pulsed Doppler or color Doppler evidence to suggest thrombus. Interpretation: Right: Acute, superficial thrombus in the median cubital vein just distal to the antecubital fossa. No evidence of upper extremity deep venous thrombus. No evidence of internal jugular vein thrombus. Left: Focal, non-occlusive deep venous thrombosis in the subclavian vein. Acute, superficial thrombus in the basilic vein of the upper arm. Comparison: ??No previous study in our vascular lab database for comparison. Notification: Dr. Rui Lockhart was informed of these preliminary findings. Electronically Signed by: RODRIGO ORDONEZ MD on 2020-05-06 01:49:11 PM [facility] VB Text Report End of Report [facility] 05/01/2020 10:3 1 AM EDT Jana Trinh MD VASCULAR ORDERABLES [facility] * CT Head wo Contrast (Generic) (05/01/2020 8:56 AM EDT) Anatomical Region Laterality Modality Head Computed Tomogra phy Impressions 05/01/2020 1:22 PM EDT 1. ??Improvement of intraventricular hemorrhage and roughly stable adjacent right intraparenchymal periventricular hemorrhage. 2. ??Similar appearance of right to left subfalcine herniation. 3. ??No new hemorrhage. I have personally reviewed the image(s) and the resident's interpretation and agree with the findings, Tiny Cervantes at 05/01/2020 1:22 PM Thank you for letting us participate in the care of this patient. For questions regarding this report, please contact the number below. ? Electronically signed by: Tiny Cervantes [facility] ([phone]), at 05/01/2020 1:22 PM Narrative 05/01/2020 1:22 PM EDT EXAMINATION: CT HEAD WO CONTRAST (GENERIC) CLINICAL HISTORY: Intracranial hemorrhage, follow up TECHNIQUE: CT head performed without intravenous contrast administration. COMPARISON: CT head without 04/27/2020 MRI 04/23/2020 FINDINGS: Unchanged left anterior approach ventricular drain is in place with tip terminating in the left foramen of Monro. Unchanged trace hemorrhage along the tract of the ventriculostomy tube. Decreased postprocedural air in the anterior horn of the left ventricle. Large amount of intraventricular hemorrhage greatest in the right lateral ventricle, has mildly decreased. Adjacent small amount of parenchymal hemorrhage is similar to the prior study. There is less volume of hemorrhage within the right lateral ventricle and the posterior horn of the left lateral ventricle. There is similar appearance of surrounding edema and unchanged 6 mm of [id number] midline shift. Similar appearance of ventriculomegaly at the lateral ventricles and third ventricle. No new areas of hemorrhage. No enlarging intracranial or extra-axial collections. No large territorial ischemic infarct. Unchanged No calvarial fractures. The paranasal sinuses and mastoid air cells are clear. Periodontal disease of multiple maxillary teeth. Procedure Note Tiny Cervantes MD - 05/01/2020 EXAMINATION: CT HEAD WO CONTRAST (GENERIC) CLINICAL HISTORY: Intracranial hemorrhage, follow up TECHNIQUE: CT head performed without intravenous contrast administration. COMPARISON: CT head without 04/27/2020 MRI 04/23/2020 FINDINGS: Unchanged left anterior approach ventricular drain is in place with tip terminating in the left foramen of Monro. Unchanged trace hemorrhage alongthe tract of the ventriculostomy tube. Decreased postprocedural air in theanterior horn of the left ventricle. Large amount of intraventricular hemorrhage greatest in the rightlateral ventricle, has mildly decreased. Adjacent small amount of parenchymalhemorrhage is similar to the prior study. There is less volume of hemorrhage within the right lateral ventricle andthe posterior horn of the left lateral ventricle. There is similar appearanceof surrounding edema and unchanged 6 mm of [id number] midline shift.Similar appearance of ventriculomegaly at the lateral ventricles and thirdventricle. No new areas of hemorrhage. No enlarging intracranial or extra-axial collections. No large territorial ischemic infarct. Unchanged Nocalvarial fractures. The paranasal sinuses and mastoid air cells are clear.Periodontal disease of multiple maxillary teeth. IMPRESSION 1. Improvement of intraventricular hemorrhage and roughly stable adjacentright intraparenchymal periventricular hemorrhage. 2. Similar appearance of right to left subfalcine herniation. 3. No new hemorrhage. I have personally reviewed the image(s) and the resident's interpretationand agree with the findings, Tiny Cervantes at 05/01/2020 1:22 PM Thank you for letting us participate in the care of this patient. Forquestions regarding this report, please contact the number below. Electronically signed by: Tiny Cervantes [facility] [place] ([phone]),at 05/01/2020 1:22 PM James Shah APRN IMG CT ORDERABLE S * Scan, Peripheral Blood (05/01/2020 12:37 AM EDT) Plat estimate Increased [facility] RBC Morphology Abnormal [facility] Macrocyte 1-5 /HPF [facility] Plat, Giant Less than 1 /HPF [facility] Blood specimen (specimen) 05/01/2020 12:37 AM EDT 05/01/2020 12:57 AM EDT Narrative Resulting Agency Comment Spec In Lab Dennis PA HEMATOLOGY ORDERA BLES [facility] [place] [address] * (ABNORMAL) Differential, Automated (05/01/2020 12:37 AM EDT) Neutrophil % 57.0 % [facility] Neutrophil Absolute 6.25(H) 1.70 - 6.10 x10(3)/mc L [facility] Lymph % 24.5 % [facility] Lymphocytes Abs 2.7 0.9 - 3.2 x10(3)/mc L [facility] Monocyte % 14.9 % [facility] Monocyte Abs 1.6(H) 0.3 - 0.9 x10(3)/[facility] Eos % 1.6 % [facility] Eosinophils Abs 0.2 0.0 - 0.4 x10(3)/[facility] Basophil % 0.5 % [facility] Baso Absolute 0.0 0.0 - 0.1 x10(3)/[facility] Immature Gran % 1.50 % [facility] Comment: Immature granulocytes(IG's)percentage and absolute count will include metamyelocytes, myelocytes, and promyelocytes. Blood smears from CBCs yielding IG's will be scanned manually for concordance. If this scan disagrees with the automated IG or if promyelocytes are noted, a manual differential will be performed. Immature Gran Absolute 0.16(H) 0.00 - 0.04 x10(3)/[facility] Blood specimen (specimen) 05/01/2020 12:37 AM EDT 05/01/2020 12:57 AM EDT Narrative Resulting Agency Comment Spec In Lab Dennis PA HEMATOLOGY ORDERA BLES [facility] [place] [address] * (ABNORMAL) Hemogram (05/01/2020 12:37 AM EDT) White Blood Cell 11.0(H) 4.0 - 9.5 x10(3)/[facility] Red Blood Cell 3.78(L) 4.58 - 5.54 x10(6)/[facility] Hemoglobin 12.6(L) 13.7 - 16.5 gm/dL [facility] Hematocrit 37.3(L) 40.5 - 48.5 % [facility] Mean Cell Volume 98.7(H) 82.9 - 93.[address] [facility] Mean Cell Hemoglobin 33.3(H) 27.5 - 32.[address] [facility] Mean Cell Hemoglobin Concentration 33.8 32.0 - 35.7 gm/dL [facility] Platelet 378(H) 145 - 357 x10(3)/mc L [facility] RDW Standard Deviation 46.7(H) 36.0 - 45.[address] [facility] RDW coefficient of variation 13.2 11.4 - 13.8 % [facility] Mean Platelet Volume 9.0 7.6 - 12.[address] [facility] NRBC% auto 0.0 % [facility] NRBC Absolute 0.000 0.000 - 0.000 x10(3)/mc L [facility] Blood specimen (specimen) 05/01/2020 12:37 AM EDT 05/01/2020 12:57 AM EDT Narrative Resulting Agency Comment Spec In Lab Dennis PA HEMATOLOGY ORDERA BLES [facility] [place] [address] * Phosphorus (05/01/2020 12:37 AM EDT) Phosphorus 3.5 2.5 - 4.5 mg/dL [facility] Blood specimen (specimen) 05/01/2020 12:37 AM EDT 05/01/2020 12:57 AM EDT Narrative Resulting Agency Comment Spec In Lab Jana Trinh MD CHEMISTRY ORDERABLES [facility] [place] [address] * Magnesium (05/01/2020 12:37 AM EDT) Magnesium 0.95 0.69 - 1.07 mmol/L [facility] Blood specimen (specimen) 05/01/2020 12:37 AM EDT 05/01/2020 12:57 AM EDT Narrative Resulting Agency Comment Spec In Lab Jana Trinh MD CHEMISTRY ORDERABLES [facility] [place] [address] * (ABNORMAL) Basic Metabolic Panel (non-fasting) (05/01/2020 12:37 AM EDT) Glucose 152 65 - 199 mg/dL [facility] Comment:Diabetes: >=200 mg/d L plus symptoms Blood Urea Nitrogen 25(H) 10 - 20 mg/dL [facility] Creatinine 0.61(L) 0.80 - 1.50 mg/dL [facility] Sodium 144 135 - 145 mmol/L [facility] Potassium 3.4(L) 3.5 - 5.0 mmol/L [facility] Comment: Please note: ??Patients with WBC >100,000 may have falsely elevated Potassium levels. ??For accurate Potassium quantification in these patients send serum separator tube (gold top) for subsequent determinations. ??Contact the Clinical Chemistry Laboratory if there are any questions. Chloride 104 98 - 107 mmol/L [facility] Carbon Dioxide 26 22 - 31 mmol/L [facility] Anion Gap 14 5 - 15 mmol/L [facility] Calcium 9.2 8.5 - 10.5 mg/dL [facility] Est Glomerular Filtration Rate 108 >=60 mL/min/1. 73 m?? [facility] Comment: The eGFR was calculated using the CKD-EPI equation. As with all creatinine based estimates of kidney function, eGFR values calculated with the CKD-EPI equation are not accurate in patients with acute kidney failure, extremes of body mass or the acutely ill. http://[facility]MCnkf eGFR 125 >=60 mL/min/1. 73 m?? [facility] Comment: The eGFR was calculated using the CKD-EPI equation. As with all creatinine based estimates of kidney function, eGFR values calculated with the CKD-EPI equation are not accurate in patients with acute kidney failure, extremes of body mass or the acutely ill. [email or web address]/[facility]MCnkf Blood specimen (specimen) 05/01/2020 12:37 AM EDT 05/01/2020 12:57 AM EDT Narrative Resulting Agency Comment Spec In Lab Jana Trinh MD CHEMISTRY ORDERABLES [facility] [place] [address] * (ABNORMAL) Differential, Automated (04/30/2020 12:13 AM EDT) Neutrophil % 70.5 % [facility] Neutrophil Absolute 7.22(H) 1.70 - 6.10 x10(3)/ L [facility] Lymph % 13.8 % [facility] Lymphocytes Abs 1.4 0.9 - 3.2 x10(3)/[facility] Monocyte % 12.8 % [facility] Monocyte Abs 1.3(H) 0.3 - 0.9 x10(3)/ L [facility] Eos % 1.3 % [facility] Eosinophils Abs 0.1 0.0 - 0.4 x10(3)/[facility] Basophil % 0.4 % [facility] Baso Absolute 0.0 0.0 - 0.1 x10(3)/[facility] Immature Gran % 1.20 % [facility] Comment: Immature granulocytes(IG's)percentage and absolute count will include metamyelocytes, myelocytes, and promyelocytes. Blood smears from CBCs yielding IG's will be scanned manually for concordance. If this scan disagrees with the automated IG or if promyelocytes are noted, a manual differential will be performed. Immature Gran Absolute 0.12(H) 0.00 - 0.04 x10(3)/mc L [facility] Blood specimen (specimen) 04/30/2020 12:13 AM EDT 04/30/2020 12:21 AM EDT Narrative Resulting Agency Comment Spec In Lab Dennis PA HEMATOLOGY ORDERA BLES [facility] [place] [address] * (ABNORMAL) Hemogram (04/30/2020 12:13 AM EDT) White Blood Cell 10.2(H) 4.0 - 9.5 x10(3)/[facility] Red Blood Cell 3.84(L) 4.58 - 5.54 x10(6)/[facility] Hemoglobin 12.9(L) 13.7 - 16.5 gm/dL [facility] Hematocrit 37.5(L) 40.5 - 48.5 % [facility] Mean Cell Volume 97.7(H) 82.9 - 93.1 [facility] LABORATORY Mean Cell Hemoglobin 33.6(H) 27.5 - 32.[address] [facility] Mean Cell Hemoglobin Concentration 34.4 32.0 - 35.7 gm/dL [facility] Platelet 329 145 - 357 x10(3)/[facility] LABORATORY RDW Standard Deviation 46.2(H) 36.0 - 45.0 [facility]ATORY RDW coefficient of variation 12.9 11.4 - 13.8 % [facility] Mean Platelet Volume 8.6 7.6 - 12.9 [facility] LABORATORY NRBC% auto 0.0 % [facility] NRBC Absolute 0.000 0.000 - 0.000 x10(3)/[facility] LABORATORY Blood specimen (specimen) 04/30/2020 12:13 AM EDT 04/30/2020 12:21 AM EDT Narrative Resulting Agency Comment Spec In Lab Dennis PA HEMATOLOGY ORDERA BLES [facility] [place] [place] [address] * Magnesium (04/30/2020 12:13 AM EDT) Pathologist [facility] Magnesium 0.85 0.69 - 1.07 mmol/L [facility] Blood specimen (specimen) 04/30/2020 12:13 AM EDT 04/30/2020 12:21 AM EDT Narrative Resulting Agency Comment Spec In Lab Jana Trinh MD CHEMISTRY ORDERABLES Performing Organization Address [facility]/ZIP Co de Phone Number [facility] [place] [place] [address] * (ABNORMAL) Basic Metabolic Panel (non-fasting) (04/30/2020 12:13 AM EDT) Pathologist [facility] Glucose 137 65 - 199 mg/dL [facility] Comment:Diabetes: >=200 mg/d L plus symptoms Blood Urea Nitrogen 18 10 - 20 mg/dL [facility] Creatinine 0.52(L) 0.80 - 1.50 mg/dL [facility] Sodium 138 135 - 145 mmol/L [facility] Potassium 3.9 3.5 - 5.0 mmol/L [facility] Comment: Please note: ??Patients with WBC >100,000 may have falsely elevated Potassium levels. ??For accurate Potassium quantification in these patients send serum separator tube (gold top) for subsequent determinations. ??Contact the Clinical Chemistry Laboratory if there are any questions. Chloride 101 98 - 107 mmol/L [facility] Carbon Dioxide 24 22 - 31 mmol/L [facility] Anion Gap 13 5 - 15 mmol/L [facility] Calcium 9.1 8.5 - 10.5 mg/dL [facility] Est Glomerular Filtration Rate 115 >=60 mL/min/1. 73 m?? [facility] Comment: The eGFR was calculated using the CKD-EPI equation. As with all creatinine based estimates of kidney function, eGFR values calculated with the CKD-EPI equation are not accurate in patients with acute kidney failure, extremes of body mass or the acutely ill. http://[facility] eGFR 133 >=60 mL/min/1. 73 m?? [facility] Comment: The eGFR was calculated using the CKD-EPI equation. As with all creatinine based estimates of kidney function, eGFR values calculated with the CKD-EPI equation are not accurate in patients with acute kidney failure, extremes of body mass or the acutely ill. http://[facility] Blood specimen (specimen) 04/30/2020 12:13 AM EDT 04/30/2020 12:21 AM EDT Narrative Resulting Agency Comment Spec In Lab Jana Trinh MD CHEMISTRY ORDERABLES Performing Organization Address [facility] Co de Phone Number [facility] [place] [place] [address] * Sodium (04/29/2020 3:47 PM EDT) Sodium 138 135 - 145 mmol/L [facility] Blood specimen (specimen) 04/29/2020 3:47 PM EDT 04/29/2020 3:52 PM EDT Narrative Resulting Agency Comment Spec In Lab Jana Trinh MD CHEMISTRY ORDERABLES Performing Organization Address [facility] Co de Phone Number [facility] [place] [place] [address] * Duplex Study for DVT, Bilat legs (04/29/2020 10:31 AM EDT) VB Text Report Department: Vascular Surgery Lab Patient: [id number] (OLLIE BURNETT) CPT: 62940 ICD10: I61.9;I82.532 Referring Physician: JANA TRINH ?? Phone: Indications: ??Fever ICD10 Diagnosis Code: I61.9, I82.532 Findings: RIGHT: Patent common femoral vein and popliteal vein with spontaneous, respirophasic Doppler waveforms that respond normally to augmentation maneuvers. The common femoral vein, saphenofemoral junction, femoral vein through the thigh and popliteal vein are fully compressible. Patent posterior tibial and peroneal veins with no evidence of thrombus. LEFT: Focal sub-acute to chronic non-occlusive popliteal vein thrombus. Patent common femoral vein and popliteal vein with spontaneous, respirophasic Doppler waveforms that respond normally to augmentation maneuvers. The common femoral vein, saphenofemoral junction and femoral vein through the thigh are fully compressible. Patent posterior tibial and peroneal veins with no evidence of thrombus. Interpretation: RIGHT: ??No evidence of lower extremity deep vein thrombosis. LEFT: Focal sub-acute to chronic non-occlusive lower extremity deep vein thrombosis. Comparison: ?? No previous study in our vascular lab database for comparison. Consuelo Sharp APRN was notified of the results. Electronically Signed by: RODRIGO ORDONEZ MD on 2020-05-02 04:15:28 PM [facility] VB Text Report End of Report [facility] 04/29/2020 10:3 1 AM EDT Jana Trinh MD VASCULAR ORDERABLES [facility] * (ABNORMAL) Differential, Automated (04/29/2020 12:19 AM EDT) Neutrophil % 61.4 % [facility] Neutrophil Absolute 5.86 1.70 - 6.10 x10(3)/mc L [facility] Lymph % 22.9 % [facility] Lymphocytes Abs 2.2 0.9 - 3.2 x10(3)/mc L [facility] Monocyte % 13.8 % [facility] Monocyte Abs 1.3(H) 0.3 - 0.9 x10(3)/mc L [facility] Eos % 0.4 % [facility] Eosinophils Abs 0.0 0.0 - 0.4 x10(3)/mc L [facility] Basophil % 0.3 % [facility] Baso Absolute 0.0 0.0 - 0.1 x10(3)/mc L [facility] Immature Gran % 1.20 % [facility] Comment: Immature granulocytes(IG's)percentage and absolute count will include metamyelocytes, myelocytes, and promyelocytes. Blood smears from CBCs yielding IG's will be scanned manually for concordance. If this scan disagrees with the automated IG or if promyelocytes are noted, a manual differential will be performed. Immature Gran Absolute 0.11(H) 0.00 - 0.04 x10(3)/mc L [facility] Blood specimen (specimen) 04/29/2020 12:19 AM EDT 04/29/2020 12:25 AM EDT Narrative Resulting Agency Comment Spec In Lab Dennis PA HEMATOLOGY ORDERA BLES [facility] [place] [address] * (ABNORMAL) Hemogram (04/29/2020 12:19 AM EDT) White Blood Cell 9.6(H) 4.0 - 9.5 x10(3)/ L [facility] Red Blood Cell 3.58(L) 4.58 - 5.54 x10(6)/mc L [facility] Hemoglobin 12.1(L) 13.7 - 16.5 gm/dL [facility] Hematocrit 35.2(L) 40.5 - 48.5 % [facility] Mean Cell Volume 98.3(H) 82.9 - 93.[address] [facility] Mean Cell Hemoglobin 33.8(H) 27.5 - 32.[address] [facility] Mean Cell Hemoglobin Concentration 34.4 32.0 - 35.7 gm/dL [facility] Platelet 264 145 - 357 x10(3)/mc L [facility] RDW Standard Deviation 45.7(H) 36.0 - 45.[address] [facility] RDW coefficient of variation 12.8 11.4 - 13.8 % [facility] Mean Platelet Volume 8.8 7.6 - 12.[address] [facility] NRBC% auto 0.0 % [facility] NRBC Absolute 0.000 0.000 - 0.000 x10(3)/mc L [facility] Blood specimen (specimen) 04/29/2020 12:19 AM EDT 04/29/2020 12:25 AM EDT Narrative Resulting Agency Comment Spec In Lab Dennis PA HEMATOLOGY ORDERA BLES Performing Organization Address [facility]/ZIP Co de Phone Number [facility] [place] [address] * Phosphorus (04/29/2020 12:19 AM EDT) Phosphorus 3.8 2.5 - 4.5 mg/dL [facility] Blood specimen (specimen) 04/29/2020 12:19 AM EDT 04/29/2020 12:25 AM EDT Narrative Resulting Agency Comment Spec In Lab Jana Trinh MD CHEMISTRY ORDERABLES Performing Organization Address [facility] Co de Phone Number [facility] [place] [place] [address] * Magnesium (04/29/2020 12:19 AM EDT) Magnesium 0.85 0.69 - 1.07 mmol/L [facility] Blood specimen (specimen) 04/29/2020 12:19 AM EDT 04/29/2020 12:25 AM EDT Narrative Resulting Agency Comment Spec In Lab Jana Trinh MD CHEMISTRY ORDERABLES Performing Organization Address [facility] Co de Phone Number [facility] [place] [place] [address] * (ABNORMAL) Basic Metabolic Panel (non-fasting) (04/29/2020 12:19 AM EDT) Glucose 179 65 - 199 mg/dL [facility] Comment:Diabetes: >=200 mg/d L plus symptoms Blood Urea Nitrogen 21(H) 10 - 20 mg/dL [facility] Creatinine 0.57(L) 0.80 - 1.50 mg/dL [facility] Sodium 134(L) 135 - 145 mmol/L [facility] Potassium 3.6 3.5 - 5.0 mmol/L [facility] Comment: Please note: ??Patients with WBC >100,000 may have falsely elevated Potassium levels. ??For accurate Potassium quantification in these patients send serum separator tube (gold top) for subsequent determinations. ??Contact the Clinical Chemistry Laboratory if there are any questions. Chloride 98 98 - 107 mmol/L [facility] Carbon Dioxide 23 22 - 31 mmol/L [facility] Anion Gap 13 5 - 15 mmol/L [facility] Calcium 8.8 8.5 - 10.5 mg/dL [facility] Est Glomerular Filtration Rate 111 >=60 mL/min/1. 73 m?? [facility] Comment: The eGFR was calculated using the CKD-EPI equation. As with all creatinine based estimates of kidney function, eGFR values calculated with the CKD-EPI equation are not accurate in patients with acute kidney failure, extremes of body mass or the acutely ill. http://[facility] eGFR 128 >=60 mL/min/1. 73 m?? [facility] Comment: The eGFR was calculated using the CKD-EPI equation. As with all creatinine based estimates of kidney function, eGFR values calculated with the CKD-EPI equation are not accurate in patients with acute kidney failure, extremes of body mass or the acutely ill. http://[facility] Blood specimen (specimen) 04/29/2020 12:19 AM EDT 04/29/2020 12:25 AM EDT Narrative Resulting Agency Comment Spec In Lab Jana Trinh MD CHEMISTRY ORDERABLES Performing Organization Address [facility] Co de Phone Number [facility] [place] [address] * (ABNORMAL) Sodium (04/28/2020 4:52 PM EDT) Sodium 134(L) 135 - 145 mmol/L [facility] Blood specimen (specimen) 04/28/2020 4:52 PM EDT 04/28/2020 4:57 PM EDT Narrative Resulting Agency Comment Spec In Lab Lynnette Khan PITCH FILLER CHEMISTRY ORDERAB LES Performing Organization Address [facility] Co de Phone Number [facility] [place] [address] * (ABNORMAL) Sodium (04/28/2020 10:53 AM EDT) Sodium 130(L) 135 - 145 mmol/L [facility] Blood specimen (specimen) 04/28/2020 10:53 AM EDT 04/28/2020 11:14 AM EDT Narrative Resulting Agency Comment Spec In Lab Lynnette Khan PITCH FILLER CHEMISTRY ORDERAB LES Performing Organization Address [facility] de Phone Number [facility] [place] [address] * XR Chest One View (04/28/2020 10:51 AM EDT) Anatomical Region Laterality Modality Chest N/A Digital Radiogra phy Impressions 04/28/2020 11:17 AM EDT Persistent mild increased lung markings RIGHT lower lung, especially when compared to study from 04/20/2020. Cannot exclude a small focus of pneumonia. Interval removal of previously noted endotracheal tube. Nasogastric tube replaced by Dobbhoff feeding tube. No other interval change. Thank you for letting us participate in the care of this patient. For questions regarding this report, please contact the number below. ? Electronically signed by: Hussein Jiménez [facility] ([phone]), at 04/28/2020 11:17 AM Narrative 04/28/2020 11:17 AM EDT EXAMINATION: XR CHEST ONE VIEW CLINICAL HISTORY: febrile, ?pneumonia TECHNIQUE: 1 view of the chest COMPARISON: 04/24/2020 and 04/23/2020 and 04/20/2020 FINDINGS: Persistent mild increased lung markings RIGHT lower lung, especially when compared to study from 04/20/2020. Cannot exclude a small focus of pneumonia. Interval removal of previously noted endotracheal tube. Nasogastric tube replaced by Dobbhoff feeding tube. No other interval change. Procedure Note Hussein Jiménez MD - 04/28/2020 EXAMINATION: XR CHEST ONE VIEW CLINICAL HISTORY: febrile, ?pneumonia TECHNIQUE: 1 view of the chest COMPARISON: 04/24/2020 and 04/23/2020 and 04/20/2020 FINDINGS: Persistent mild increased lung markings RIGHT lower lung, especiallywhen compared to study from 04/20/2020. Cannot exclude a small focus ofpneumonia. Interval removal of previously noted endotracheal tube. Nasogastric tube replaced by Dobbhoff feeding tube. No other interval change. IMPRESSION Persistent mild increased lung markings RIGHT lower lung, especiallywhen compared to study from 04/20/2020. Cannot exclude a small focus ofpneumonia. Interval removal of previously noted endotracheal tube. Nasogastric tube replaced by Dobbhoff feeding tube. No other interval change. Thank you for letting us participate in the care of this patient. Forquestions regarding this report, please contact the number below. Electronically signed by: Hussein Jiménez [facility]([phone]), at 04/28/2020 11:17 AM Jana Trinh MD IMG DX ORDERABLES * (ABNORMAL) Urinalysis Microscopic Exam (04/28/2020 10:06 AM EDT) RBC, Urine 2 0 - 3 /HPF [facility] WBC, Urine 1 0 - 3 /HPF [facility] Bacteria, Urine Rare(A) None /HPF [facility] Hyaline Casts, Urine 1 0 - 2 /LPF [facility] Urine specimen (specimen) 04/28/2020 10:06 AM EDT 04/28/2020 11:43 AM EDT Narrative Resulting Agency Comment Spec In Lab Lynnette Khan APRN URINE ORDERABLES [facility] [place] [address] * (ABNORMAL) Urinalysis with reflex Culture (04/28/2020 10:06 AM EDT) Glucose, Urine Dipstick Negative Negative mg/dL [facility] Protein, Urine Dipstick Trace(A) Negative mg/dL [facility] Bilirubin, Urine Dipstick Negative Negative mg/dL [facility] Comment: Clinical correlation required for positive Urine Bilirubin results as false positive may occur with some drugs and drug related products. If a false positive is suspected a serum total bilirubin should be considered if clinically indicated. Urobilinogen, Urine Dipstick Normal Normal mg/dL [facility] pH, Urn (dipstick) 8.0 5.0 - 8.0 [facility] Blood, Urine Dipstick Negative Negative mg/dL [facility] Ketone, Urine Dipstick Negative Negative mg/dL [facility] Nitrite, Urine Dipstick Negative Negative [facility] Leukocytes, Urine Dipstick Negative Negative [facility] Appearance, Urine Dipstick Clear Clear [facility] Specific [place] Urine Automated 1.019 1.006 - 1.030 [facility] Color, Urine Dipstick Yellow Yellow [facility] Reflex to Culture No [facility] Urine specimen (specimen) 04/28/2020 10:06 AM EDT 04/28/2020 11:43 AM EDT Narrative Resulting Agency Comment Spec In Lab Lynnette Cornellmont PITCH FILLER URINE ORDERABLES Performing Organization Address City/[facility] Co de Phone Number [facility] [place] [address] * Blood culture (04/28/2020 9:45 AM EDT) Blood Culture No growth at [address] [facility] Blood specimen (specimen) ANTECUBITAL REGION STRUCTURE / Unknown 04/28/2020 9:45 AM EDT 04/28/2020 11:12 AM EDT Narrative Resulting Agency Comment Spec In Lab Lynnette Louisa Khan PITCH FILLER MICROBIOLOGY - BL OOD ORDERABLES Performing Organization Address City/[facility] Co de Phone Number [facility] [place] [address] * Blood culture (04/28/2020 9:40 AM EDT) Blood Culture No growth at [address] [facility] Blood specimen (specimen) ANTECUBITAL REGION STRUCTURE / Unknown 04/28/2020 9:40 AM EDT 04/28/2020 11:06 AM EDT Narrative Resulting Agency Comment Spec In Lab Lynnette Cornellmont PITCH FILLER MICROBIOLOGY - BL OOD ORDERABLES Performing Organization Address City/[facility]/ZIP Co de Phone Number [facility] [place] [place] [address] * (ABNORMAL) Differential, Automated (04/28/2020 4:30 AM EDT) Neutrophil % 69.3 % [facility] Neutrophil Absolute 5.82 1.70 - 6.10 x10(3)/mc L [facility] Lymph % 18.3 % [facility] Lymphocytes Abs 1.5 0.9 - 3.2 x10(3)/ L [facility] Monocyte % 10.8 % [facility] Monocyte Abs 0.9 0.3 - 0.9 x10(3)/[facility] Eos % 0.6 % [facility] Eosinophils Abs 0.0 0.0 - 0.4 x10(3)/[facility] Basophil % 0.2 % [facility] Baso Absolute 0.0 0.0 - 0.1 x10(3)/[facility] Immature Gran % 0.80 % [facility] Comment: Immature granulocytes(IG's)percentage and absolute count will include metamyelocytes, myelocytes, and promyelocytes. Blood smears from CBCs yielding IG's will be scanned manually for concordance. If this scan disagrees with the automated IG or if promyelocytes are noted, a manual differential will be performed. Immature Gran Absolute 0.07(H) 0.00 - 0.04 x10(3)/[facility]OR[facility] Blood specimen (specimen) 04/28/2020 4:30 AM EDT 04/28/2020 4:38 AM EDT Narrative Resulting Agency Comment Spec In Lab Dennis PA HEMATOLOGY ORDERA BLES [facility] [place] [address] * (ABNORMAL) Hemogram (04/28/2020 4:30 AM EDT) White Blood Cell 8.4 4.0 - 9.5 x10(3)/[facility] Red Blood Cell 3.90(L) 4.58 - 5.54 x10(6)/ L [facility] Hemoglobin 13.1(L) 13.7 - 16.5 gm/dL [facility] Hematocrit 37.3(L) 40.5 - 48.5 % [facility] Mean Cell Volume 95.6(H) 82.9 - 93.[address] [facility] Mean Cell Hemoglobin 33.6(H) 27.5 - 32.[address] [facility] Mean Cell Hemoglobin Concentration 35.1 32.0 - 35.7 gm/dL [facility] Platelet 244 145 - 357 x10(3)/mc L [facility] RDW Standard Deviation 42.7 36.0 - 45.0 [facility] RDW coefficient of variation 12.3 11.4 - 13.8 % [facility] Mean Platelet Volume 8.6 7.6 - 12.[address] [facility] NRBC% auto 0.0 % [facility] NRBC Absolute 0.000 0.000 - 0.000 x10(3)/mc L [facility] Blood specimen (specimen) 04/28/2020 4:30 AM EDT 04/28/2020 4:38 AM EDT Narrative Resulting Agency Comment Spec In Lab Dennis PA HEMATOLOGY ORDERA BLES Performing Organization Address [facility]/ZIP Co de Phone Number [facility] [place] [address] * (ABNORMAL) Phosphorus (04/28/2020 4:30 AM EDT) Phosphorus 2.4(L) 2.5 - 4.5 mg/dL [facility] Blood specimen (specimen) 04/28/2020 4:30 AM EDT 04/28/2020 4:38 AM EDT Narrative Resulting Agency Comment Spec In Lab Jana Trinh MD CHEMISTRY ORDERABLES Performing Organization Address [facility]/ZIP Co de Phone Number [facility] [place] [address] * Magnesium (04/28/2020 4:30 AM EDT) Magnesium 0.91 0.69 - 1.07 mmol/L [facility] Blood specimen (specimen) 04/28/2020 4:30 AM EDT 04/28/2020 4:38 AM EDT Narrative Resulting Agency Comment Spec In Lab Jana Trinh MD CHEMISTRY ORDERABLES [facility] [place] [address] * (ABNORMAL) Basic Metabolic Panel (non-fasting) (04/28/2020 4:30 AM EDT) Glucose 149 65 - 199 mg/dL [facility] Comment:Diabetes: >=200 mg/d L plus symptoms Blood Urea Nitrogen 17 10 - 20 mg/dL [facility] Creatinine 0.43(L) 0.80 - 1.50 mg/dL [facility] Sodium 131(L) 135 - 145 mmol/L [facility] Potassium 4.1 3.5 - 5.0 mmol/L [facility] Comment: Please note: ??Patients with WBC >100,000 may have falsely elevated Potassium levels. ??For accurate Potassium quantification in these patients send serum separator tube (gold top) for subsequent determinations. ??Contact the Clinical Chemistry Laboratory if there are any questions. Chloride 98 98 - 107 mmol/L [facility] Carbon Dioxide 20(L) 22 - 31 mmol/L [facility] Anion Gap 13 5 - 15 mmol/L [facility] Calcium 8.8 8.5 - 10.5 mg/dL [facility] Comment:result rechecked-dunia Est Glomerular Filtration Rate 124 >=60 mL/min/1. 73 m?? [facility] Comment: The eGFR was calculated using the CKD-EPI equation. As with all creatinine based estimates of kidney function, eGFR values calculated with the CKD-EPI equation are not accurate in patients with acute kidney failure, extremes of body mass or the acutely ill. http://[facility] eGFR 144 >=60 mL/min/1. 73 m?? [facility] Comment: The eGFR was calculated using the CKD-EPI equation. As with all creatinine based estimates of kidney function, eGFR values calculated with the CKD-EPI equation are not accurate in patients with acute kidney failure, extremes of body mass or the acutely ill. http://[facility] Blood specimen (specimen) 04/28/2020 4:30 AM EDT 04/28/2020 4:38 AM EDT Narrative Resulting Agency Comment Spec In Lab Jana Trinh MD CHEMISTRY ORDERABLES Performing Organization Address City/[facility]/ZIP Co de Phone Number [facility] [place] [address] * (ABNORMAL) Sodium (04/27/2020 10:24 PM EDT) Sodium 133(L) 135 - 145 mmol/L [facility] Blood specimen (specimen) 04/27/2020 10:24 PM EDT 04/27/2020 10:50 PM EDT Narrative Resulting Agency Comment Spec In Lab Lynnette Khan APRN CHEMISTRY ORDERAB LES Performing Organization Address [facility] Co de Phone Number [facility] [place] [address] * CT Head wo Contrast (Generic) (04/27/2020 8:17 PM EDT) Anatomical Region Laterality Modality Head Computed Tomogra phy Impressions 04/27/2020 10:30 PM EDT 1. 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 Unchanged lateral ventriculomegaly with stable right to left midline shift. 2. ??Scattered punctate cortical infarcts corresponding to recent MR. No new large territorial infarct. I have personally reviewed the image(s) and the resident's interpretation and agree with the findings, Ewa Slade at 04/27/2020 10:30 PM Thank you for letting us participate in the care of this patient. For questions regarding this report, please contact the number below. ? Narrative 04/27/2020 10:30 PM EDT EXAMINATION: CT HEAD WO CONTRAST (GENERIC) CLINICAL HISTORY: Neuro deficit, acute, stroke suspected EVD in place, increased lethargy, decreased EVD output. TECHNIQUE: CT head performed without intravenous contrast administration. COMPARISON: MRI from April 23, 2020 CT head without contrast 04/22/2020 and 04/21/2020 FINDINGS: The left anterior approach external ventricular drain is in unchanged position with tip at the left foramen of Monro. Unchanged trace hemorrhage along the ventricular tract and small focus of postprocedural air at the anterior horn of the left lateral ventricle, with previously noted focus of air at the left anterior frontal lobe no longer visualized. 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 Grossly unchanged volume of hemorrhage within the lateral ventricles but with interim decompression and decreased hemorrhage within the third ventricle and redistribution of the hemorrhage within the fourth ventricle. Unchanged lateral ventriculomegaly. No interval change in right to left midline shift which measures 6 mm, previously 6 mm on recent MRI. No new acute intracranial hemorrhage or enlarging extra-axial collection. Scattered small areas with loss of lee-white white differentiation of the cortex corresponding to punctate cortical infarcts on MRI are noted. No large territory ischemic change. Procedure Note Ewa Slade MD - 04/27/2020 EXAMINATION: CT HEAD WO CONTRAST (GENERIC) CLINICAL HISTORY: Neuro deficit, acute, stroke suspected EVD in place, increased lethargy, decreased EVD output. TECHNIQUE: CT head performed without intravenous contrast administration. COMPARISON: MRI from April 23, 2020 CT head without contrast 04/22/2020 and 04/21/2020 FINDINGS: The left anterior approach external ventricular drain is in unchangedposition with tip at the left foramen of Monro. Unchanged trace hemorrhage alongthe ventricular tract and small focus of postprocedural air at the anteriorhorn of the left lateral ventricle, with previously noted focus of air at theleft anterior frontal lobe no longer visualized. 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 Grossly unchanged volume of hemorrhage withinthe lateral ventricles but with interim decompression and decreasedhemorrhage within the third ventricle and redistribution of the hemorrhage withinthe fourth ventricle. Unchanged lateral ventriculomegaly. No interval changein right to left midline shift which measures 6 mm, previously 6 mm on recentMRI. No new acute intracranial hemorrhage or enlarging extra-axialcollection. Scattered small areas with loss of lee-white white differentiation ofthe cortex corresponding to punctate cortical infarcts on MRI are noted. Nolarge territory ischemic change. IMPRESSION 1. 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 Unchanged lateral ventriculomegaly with stable rightto left midline shift. 2. Scattered punctate cortical infarcts corresponding to recent MR. Nonew large territorial infarct. I have personally reviewed the image(s) and the resident's interpretationand agree with the findings, Ewa Slade at 04/27/2020 10:30 PM Thank you for letting us participate in the care of this patient. Forquestions regarding this report, please contact the number below. Lynnette Khan APRN IMG CT ORDERABLES * (ABNORMAL) Sodium (04/27/2020 2:30 PM EDT) Sodium 133(L) 135 - 145 mmol/L [facility] Blood specimen (specimen) 04/27/2020 2:30 PM EDT 04/27/2020 2:37 PM EDT Narrative Resulting Agency Comment Spec In Lab Lynnette Khan APRN CHEMISTRY ORDERAB LES [facility] [place] [address] * Osmolality, urine, random (04/27/2020 6:58 AM EDT) Osmolality, Urine 447 50 - 1,200 mOsm/kg [facility] Urine specimen (specimen) 04/27/2020 6:58 AM EDT 04/27/2020 7:12 AM EDT Narrative Resulting Agency Comment Spec In Lab Jana Trinh MD URINE ORDERABLES [facility] [place] [address] * Sodium, urine, random (04/27/2020 6:58 AM EDT) Sodium, Urine 170 mmol/L [facility] Urine specimen (specimen) 04/27/2020 6:58 AM EDT 04/27/2020 7:08 AM EDT Narrative Resulting Agency Comment Spec In Lab Jana Trinh MD URINE ORDERABLES Performing Organization Address City/[facility]/ZIP Co de Phone Number [facility] [place] [address] * (ABNORMAL) Sodium (04/27/2020 6:35 AM EDT) Sodium 129(L) 135 - 145 mmol/L [facility] Blood specimen (specimen) 04/27/2020 6:35 AM EDT 04/27/2020 6:58 AM EDT Narrative Resulting Agency Comment Spec In Lab Jana Trinh MD CHEMISTRY ORDERABLES Performing Organization Address City/[facility]/ZIP Co de Phone Number [facility] [place] [address] * Osmolality (04/27/2020 2:15 AM EDT) Osmolality 276 275 - 295 mOsm/kg [facility] Blood specimen (specimen) Venous Draw / Unknown 04/27/2020 2:15 AM EDT 04/27/2020 2:37 AM EDT Narrative Resulting Agency Comment Spec In Lab Dennis PA CHEMISTRY ORDERAB LES Performing Organization Address City/[facility]/ZIP Co de Phone Number [facility] [place] [address] * Differential, Automated (04/27/2020 2:15 AM EDT) Neutrophil % 57.4 % [facility] Neutrophil Absolute 4.03 1.70 - 6.10 x10(3)/[facility] Lymph % 27.6 % [facility] Lymphocytes Abs 1.9 0.9 - 3.2 x10(3)/[facility] Monocyte % 12.4 % [facility] Monocyte Abs 0.9 0.3 - 0.9 x10(3)/[facility] Eos % 1.9 % [facility] Eosinophils Abs 0.1 0.0 - 0.4 x10(3)/[facility] Basophil % 0.3 % [facility] Baso Absolute 0.0 0.0 - 0.1 x10(3)/[facility] Immature Gran % 0.40 % [facility] Comment: Immature granulocytes(IG's)percentage and absolute count will include metamyelocytes, myelocytes, and promyelocytes. Blood smears from CBCs yielding IG's will be scanned manually for concordance. If this scan disagrees with the automated IG or if promyelocytes are noted, a manual differential will be performed. Immature Gran Absolute 0.03 0.00 - 0.04 x10(3)/[facility] Blood specimen (specimen) 04/27/2020 2:15 AM EDT 04/27/2020 2:26 AM EDT Narrative Resulting Agency Comment Spec In Lab Dennis PA HEMATOLOGY ORDERA BLES Performing Organization Address City/[facility]/ZIP Co de Phone Number [facility] [place] [address] * (ABNORMAL) Hemogram (04/27/2020 2:15 AM EDT) [facility] White Blood Cell 7.0 4.0 - 9.5 x10(3)/ L [facility] Red Blood Cell 3.37(L) 4.58 - 5.54 x10(6)/[facility] Hemoglobin 11.3(L) 13.7 - 16.5 gm/dL [facility] Hematocrit 33.0(L) 40.5 - 48.5 % [facility] Mean Cell Volume 97.9(H) 82.9 - 93.1 [facility] Mean Cell Hemoglobin 33.5(H) 27.5 - 32.[address] [facility] Mean Cell Hemoglobin Concentration 34.2 32.0 - 35.7 gm/dL [facility] Platelet 189 145 - 357 x10(3)/[facility] RDW Standard Deviation 44.3 36.0 - 45.0 [facility] RDW coefficient of variation 12.3 11.4 - 13.8 % [facility] Mean Platelet Volume 9.1 7.6 - 12.9 [facility] NRBC% auto 0.0 % [facility] NRBC Absolute 0.000 0.000 - 0.000 x10(3)/[facility] Blood specimen (specimen) 04/27/2020 2:15 AM EDT 04/27/2020 2:26 AM EDT Narrative Resulting Agency Comment Spec In Lab Dennis PA HEMATOLOGY ORDERA BLES [facility] [place] [address] * (ABNORMAL) Phosphorus (04/27/2020 2:15 AM EDT) [facility] Phosphorus 2.1(L) 2.5 - 4.5 mg/dL [facility] Blood specimen (specimen) 04/27/2020 2:15 AM EDT 04/27/2020 2:26 AM EDT Narrative Resulting Agency Comment Spec In Lab Jana Trinh MD CHEMISTRY ORDERABLES Performing Organization Address [facility] Co de Phone Number [facility] [place] [address] * Magnesium (04/27/2020 2:15 AM EDT) [facility] Magnesium 0.90 0.69 - 1.07 mmol/L [facility] Blood specimen (specimen) 04/27/2020 2:15 AM EDT 04/27/2020 2:26 AM EDT Narrative Resulting Agency Comment Spec In Lab Jana Trinh MD CHEMISTRY ORDERABLES Performing Organization Address [facility] Co de Phone Number [facility] [place] [address] * (ABNORMAL) Basic Metabolic Panel (non-fasting) (04/27/2020 2:15 AM EDT) [facility] Glucose 137 65 - 199 mg/dL [facility] Comment:Diabetes: >=200 mg/d L plus symptoms Blood Urea Nitrogen 12 10 - 20 mg/dL [facility] Creatinine 0.42(L) 0.80 - 1.50 mg/dL [facility] Sodium 133(L) 135 - 145 mmol/L [facility] Potassium 3.8 3.5 - 5.0 mmol/L [facility] Comment: Please note: ??Patients with WBC >100,000 may have falsely elevated Potassium levels. ??For accurate Potassium quantification in these patients send serum separator tube (gold top) for subsequent determinations. ??Contact the Clinical Chemistry Laboratory if there are any questions. Chloride 99 98 - 107 mmol/L [facility] Carbon Dioxide 23 22 - 31 mmol/L [facility] Anion Gap 11 5 - 15 mmol/L [facility] Calcium 8.0(L) 8.5 - 10.5 mg/dL [facility] Est Glomerular Filtration Rate 126 >=60 mL/min/1. 73 m?? [facility] Comment: The eGFR was calculated using the CKD-EPI equation. As with all creatinine based estimates of kidney function, eGFR values calculated with the CKD-EPI equation are not accurate in patients with acute kidney failure, extremes of body mass or the acutely ill. http://[facility] eGFR 146 >=60 mL/min/1. 73 m?? [facility] Comment: The eGFR was calculated using the CKD-EPI equation. As with all creatinine based estimates of kidney function, eGFR values calculated with the CKD-EPI equation are not accurate in patients with acute kidney failure, extremes of body mass or the acutely ill. http://[facility] Blood specimen (specimen) 04/27/2020 2:15 AM EDT 04/27/2020 2:26 AM EDT Narrative Resulting Agency Comment Spec In Lab Jana Trinh MD CHEMISTRY ORDERABLES [facility] [place] [address] * XR Abdomen 1 view (Generic) (04/26/2020 12:19 PM EDT) Anatomical Region Laterality Modality Abdomen N/A Digital Radiogra phy Impressions 04/26/2020 12:51 PM EDT 1. ??Enteric tube exchange, Dobbhoff tip, as above. 2. ??Prominent loops of air-filled bowel, supine only view. Thank you for letting us participate in the care of this patient. For questions regarding this report, please contact the number below. ? Narrative 04/26/2020 12:51 PM EDT EXAMINATION: XR ABDOMEN 1 VIEW (GENERIC) CLINICAL HISTORY: s/p DHT placement 60-year-old male TECHNIQUE: A single supine view of the upper abdomen. COMPARISON: 04/25/2020 FINDINGS: Exchange of enteric tube with Dobbhoff type catheter, wire remains in place, tip overlying the expected location of the gastric body. Multiple overlying leads. Air-filled loops of small bowel prominent are prominent, with air-filled loops of surrounding colon. Procedure Note Casey Grove MD - 04/26/2020 EXAMINATION: XR ABDOMEN 1 VIEW (GENERIC) CLINICAL HISTORY: s/p DHT placement 60-year-old male TECHNIQUE: A single supine view of the upper abdomen. COMPARISON: 04/25/2020 FINDINGS: Exchange of enteric tube with Dobbhoff type catheter, wire remains inplace, tip overlying the expected location of the gastric body. Multiple overlyingleads. Air-filled loops of small bowel prominent are prominent, with air-filledloops of surrounding colon. IMPRESSION 1. Enteric tube exchange, Dobbhoff tip, as above. 2. Prominent loops of air-filled bowel, supine only view. Thank you for letting us participate in the care of this patient. Forquestions regarding this report, please contact the number below. Jana Trinh MD IMG DX ORDERABLES * Potassium (04/26/2020 6:40 AM EDT) [facility] Signature Potassium 3.6 3.5 - 5.0 mmol/L [facility] Comment: Please note: ??Patients with WBC >100,000 may have falsely elevated Potassium levels. ??For accurate Potassium quantification in these patients send serum separator tube (gold top) for subsequent determinations. ??Contact the Clinical Chemistry Laboratory if there are any questions. Blood specimen (specimen) 04/26/2020 6:40 AM EDT 04/26/2020 6:50 AM EDT Narrative Resulting Agency Comment Spec In Lab Jana Trinh MD CHEMISTRY ORDERABLES [facility] [place] [address] * Differential, Automated (04/26/2020 1:50 AM EDT) Neutrophil % 67.1 % [facility] Neutrophil Absolute 5.71 1.70 - 6.10 x10(3)/[facility] Lymph % 23.3 % [facility] Lymphocytes Abs 2.0 0.9 - 3.2 x10(3)/[facility] Monocyte % 8.4 % [facility] Monocyte Abs 0.7 0.3 - 0.9 x10(3)/[facility] Eos % 0.9 % [facility] Eosinophils Abs 0.1 0.0 - 0.4 x10(3)/[facility] Basophil % 0.1 % [facility] Baso Absolute 0.0 0.0 - 0.1 x10(3)/[facility] Immature Gran % 0.20 % [facility] Comment: Immature granulocytes(IG's)percentage and absolute count will include metamyelocytes, myelocytes, and promyelocytes. Blood smears from CBCs yielding IG's will be scanned manually for concordance. If this scan disagrees with the automated IG or if promyelocytes are noted, a manual differential will be performed. Immature Gran Absolute 0.02 0.00 - 0.04 x10(3)/[facility] Blood specimen (specimen) 04/26/2020 1:50 AM EDT 04/26/2020 1:53 AM EDT Narrative Resulting Agency Comment Spec In Lab Dennis PA HEMATOLOGY ORDERA BLES Performing Organization Address City/[facility]/ZIP Co de Phone Number [facility] [place] [address] * (ABNORMAL) Hemogram (04/26/2020 1:50 AM EDT) White Blood Cell 8.5 4.0 - 9.5 x10(3)/ L [facility] Red Blood Cell 3.46(L) 4.58 - 5.54 x10(6)/mc L [facility] Hemoglobin 11.6(L) 13.7 - 16.5 gm/dL [facility] Hematocrit 33.8(L) 40.5 - 48.5 % [facility] Mean Cell Volume 97.7(H) 82.9 - 93.1 [facility] Mean Cell Hemoglobin 33.5(H) 27.5 - 32.[address] [facility] Mean Cell Hemoglobin Concentration 34.3 32.0 - 35.7 gm/dL [facility] Platelet 157 145 - 357 x10(3)/ L [facility] RDW Standard Deviation 44.9 36.0 - 45.0 [facility] RDW coefficient of variation 12.6 11.4 - 13.8 % [facility] Mean Platelet Volume 9.0 7.6 - 12.9 [facility] NRBC% auto 0.0 % [facility] NRBC Absolute 0.000 0.000 - 0.000 x10(3)/ L [facility] Blood specimen (specimen) 04/26/2020 1:50 AM EDT 04/26/2020 1:53 AM EDT Narrative Resulting Agency Comment Spec In Lab Dennis PA HEMATOLOGY ORDERA BLES Performing Organization Address City/[facility]/ZIP Co de Phone Number [facility] [place] [address] * Phosphorus (04/26/2020 1:50 AM EDT) Pathologist [facility] Phosphorus 3.1 2.5 - 4.5 mg/dL [facility] Blood specimen (specimen) 04/26/2020 1:50 AM EDT 04/26/2020 1:53 AM EDT Narrative Resulting Agency Comment Spec In Lab Jana Trinh MD CHEMISTRY ORDERABLES Performing Organization Address [facility]/State/ZIP Co de Phone Number [facility] [place] [address] * Magnesium (04/26/2020 1:50 AM EDT) [facility] Magnesium 0.78 0.69 - 1.07 mmol/L [facility] Blood specimen (specimen) 04/26/2020 1:50 AM EDT 04/26/2020 1:53 AM EDT Narrative Resulting Agency Comment Spec In Lab Jana Trinh MD CHEMISTRY ORDERABLES Performing Organization Address City/[facility]/ZIP Co de Phone Number [facility] [place] [address] * (ABNORMAL) Basic Metabolic Panel (non-fasting) (04/26/2020 1:50 AM EDT) Pathologist [facility] Glucose 105 65 - 199 mg/dL [facility] Comment:Diabetes: >=200 mg/d L plus symptoms Blood Urea Nitrogen 13 10 - 20 mg/dL [facility] Creatinine 0.43(L) 0.80 - 1.50 mg/dL [facility] Sodium 136 135 - 145 mmol/L [facility] Potassium 3.7 3.5 - 5.0 mmol/L [facility] Comment: Please note: ??Patients with WBC >100,000 may have falsely elevated Potassium levels. ??For accurate Potassium quantification in these patients send serum separator tube (gold top) for subsequent determinations. ??Contact the Clinical Chemistry Laboratory if there are any questions. Chloride 103 98 - 107 mmol/L [facility] Carbon Dioxide 25 22 - 31 mmol/L [facility] Anion Gap 8 5 - 15 mmol/L [facility] Calcium 7.9(L) 8.5 - 10.5 mg/dL [facility] Est Glomerular Filtration Rate 124 >=60 mL/min/1. 73 m?? [facility] Comment: The eGFR was calculated using the CKD-EPI equation. As with all creatinine based estimates of kidney function, eGFR values calculated with the CKD-EPI equation are not accurate in patients with acute kidney failure, extremes of body mass or the acutely ill. http://[facility] eGFR 144 >=60 mL/min/1. 73 m?? [facility] Comment: The eGFR was calculated using the CKD-EPI equation. As with all creatinine based estimates of kidney function, eGFR values calculated with the CKD-EPI equation are not accurate in patients with acute kidney failure, extremes of body mass or the acutely ill. http://[facility] Blood specimen (specimen) 04/26/2020 1:50 AM EDT 04/26/2020 1:53 AM EDT Narrative Resulting Agency Comment Spec In Lab Jana Trinh MD CHEMISTRY ORDERABLES Performing Organization Address City/State/[facility] Co de Phone Number [facility] [place] [address] * XR Abdomen 1 view (Generic) (04/25/2020 2:26 PM EDT) Anatomical Region Laterality Modality Abdomen N/A Digital Radiogra phy Impressions 04/25/2020 2:48 PM EDT Mildly dilated air-filled loops of small bowel with relative paucity of gas seen in the colon. Findings may represent a developing diffuse small bowel ileus, however, a distal small bowel obstruction is not excluded. Thank you for letting us participate in the care of this patient. For questions regarding this report, please contact the number below. ? Narrative 04/25/2020 2:48 PM EDT EXAMINATION: XR ABDOMEN 1 VIEW (GENERIC) CLINICAL HISTORY: acute abdominal distension, pain TECHNIQUE: Portable 15 degrees upright radiographs of the abdomen, 04/25/2020 at 1425 hours, total of 2 films. COMPARISON: Portable AP sitting upright chest radiograph 04/24/[address] chest, abdomen, and pelvis 04/20/2020 from [facility]. FINDINGS: Distal tip of enteric tube and side-port project over the expected region of the gastric fundus. There are multiple dilated air-filled loops of small bowel measuring up to approximately 38 mm in diameter. There is a paucity of gas seen in large bowel loops. No portal venous gas or visualized pneumatosis. Limited evaluation for intraperitoneal free air secondary to nearly recumbent imaging. Known aortoiliac calcified atherosclerosis. Imaged lung bases appear grossly clear. No visualized acute osseous abnormality. Procedure Note Pratima Tucker MD - 04/25/2020 EXAMINATION: XR ABDOMEN 1 VIEW (GENERIC) CLINICAL HISTORY: acute abdominal distension, pain TECHNIQUE: Portable 15 degrees upright radiographs of the abdomen, 04/25/2020 at 1425hours, total of 2 films. COMPARISON: Portable AP sitting upright chest radiograph 04/24/[address] chest, abdomen, and pelvis 04/20/2020 from [facility]. FINDINGS: Distal tip of enteric tube and side-port project over the expected regionof the gastric fundus. There are multiple dilated air-filled loops of smallbowel measuring up to approximately 38 mm in diameter. There is a paucity of gasseen in large bowel loops. No portal venous gas or visualized pneumatosis.Limited evaluation for intraperitoneal free air secondary to nearly recumbentimaging. Known aortoiliac calcified atherosclerosis. Imaged lung bases appeargrossly clear. No visualized acute osseous abnormality. IMPRESSION Mildly dilated air-filled loops of small bowel with relative paucity ofgas seen in the colon. Findings may represent a developing diffuse small bowelileus, however, a distal small bowel obstruction is not excluded. Thank you for letting us participate in the care of this patient. Forquestions regarding this report, please contact the number below. [place] [facility] IMG DX ORDERABLES * (ABNORMAL) BLOOD GAS 2 ARTERIAL (04/25/2020 2:09 PM EDT) pH, Arterial 7.48(H) 7.35 - 7.45 [facility] PCO2, Arterial 32(L) 35 - [address] [facility] PO2, Arterial 93 85 - [address] [facility] Bicarbonate, Arterial 23.2 20.0 - 26.0 mmol/L [facility] Base Excess, Arterial -0.3 -3.0 - 3.0 mmol/L [facility] Hgb Blood Gas 13.6(L) 13.7 - 16.5 gm/dL [facility] Oxyhemoglobin, Arterial 96.3 94.0 - 97.0 % [facility] Carboxyhemoglob in, Arterial 0.3 % [facility] Comment: Nonsmokers: 0.5-1.5% COHB Smokers: Variable, but usually less than 10% Toxic: 20-30% COHB Lethal: Greater than 60% COHB Methemoglobin, Arterial 0.6 <=1.5 % [facility] Na Whole Blood 132(L) 135 - 145 mmol/L [facility] K Whole Blood 3.9 3.5 - 5.0 mmol/L [facility] Comment: Please note: Patients with WBC >100,000 may have falsely elevated Potassium levels. Contact the Clinical Chemistry Laboratory if there are any questions. ICa Whole Blood 1.14(L) 1.15 - 1.33 mmol/L [facility] Comment: Note: ??Total bilirubin higher than 20 mg/dL may lead to falsely low ionized calcium. CL Whole Blood 104 98 - 107 mmol/L [facility] Gluc Whole Bld 131 65 - 199 mg/dL [facility] Comment:Diabetes: >=200 mg/d L plus symptoms. Lactate WB 1.2 0.5 - 2.2 mmol/L [facility] FIO2 Art 25 % [facility] PF Ratio Art 372 [facility] Temp Art 36.6 Celsius [facility] Blood specimen (specimen) 04/25/2020 2:09 PM EDT 04/25/2020 2:09 PM EDT Jana Trinh MD POINT OF CARE TEST O RDERABLES Performing Organization Address [facility] Co de Phone Number [facility] [place] [place] [address] * POCT Glucose (04/25/2020 1:43 PM EDT) Glucose, POC 140 65 - 199 mg/dL [facility] Comment: Supplemental ranges: <140 mg/dL before meals <180 mg/dL all other times of the day Blood specimen (specimen) 04/25/2020 1:43 PM EDT 04/25/2020 1:43 PM EDT Jana Trinh MD POINT OF CARE TEST O RDERAKEYSHAWN Performing Organization Address City/[facility]/ZIP Co de Phone Number [facility] [place] [place] [address] * (ABNORMAL) Differential, Automated (04/25/2020 1:10 AM EDT) Neutrophil % 78.8 % [facility] Neutrophil Absolute 8.88(H) 1.70 - 6.10 x10(3)/mc L [facility] Lymph % 10.0 % [facility] Lymphocytes Abs 1.1 0.9 - 3.2 x10(3)/ L [facility] Monocyte % 10.3 % [facility] Monocyte Abs 1.2(H) 0.3 - 0.9 x10(3)/ L [facility] Eos % 0.3 % [facility] Eosinophils Abs 0.0 0.0 - 0.4 x10(3)/[facility] Basophil % 0.2 % [facility] Baso Absolute 0.0 0.0 - 0.1 x10(3)/[facility] Immature Gran % 0.40 % [facility] Comment: Immature granulocytes(IG's)percentage and absolute count will include metamyelocytes, myelocytes, and promyelocytes. Blood smears from CBCs yielding IG's will be scanned manually for concordance. If this scan disagrees with the automated IG or if promyelocytes are noted, a manual differential will be performed. Immature Gran Absolute 0.05(H) 0.00 - 0.04 x10(3)/[facility] Blood specimen (specimen) 04/25/2020 1:10 AM EDT 04/25/2020 1:19 AM EDT Narrative Resulting Agency Comment Spec In Lab Dennis PA HEMATOLOGY ORDERA BLES [facility] [place] [place] [address] * (ABNORMAL) Hemogram (04/25/2020 1:10 AM EDT) White Blood Cell 11.3(H) 4.0 - 9.5 x10(3)/[facility] Red Blood Cell 3.54(L) 4.58 - 5.54 x10(6)/[facility] Hemoglobin 12.0(L) 13.7 - 16.5 gm/dL [facility] Hematocrit 34.8(L) 40.5 - 48.5 % [facility] Mean Cell Volume 98.3(H) 82.9 - 93.[address] [facility] Mean Cell Hemoglobin 33.9(H) 27.5 - 32.[address] [facility] Mean Cell Hemoglobin Concentration 34.5 32.0 - 35.7 gm/dL [facility] Platelet 141(L) 145 - 357 x10(3)/mc L [facility] RDW Standard Deviation 45.7(H) 36.0 - 45.0 [facility] RDW coefficient of variation 12.7 11.4 - 13.8 % [facility] Mean Platelet Volume 9.0 7.6 - 12.9 [facility] NRBC% auto 0.0 % [facility] NRBC Absolute 0.000 0.000 - 0.000 x10(3)/mc L [facility] Blood specimen (specimen) 04/25/2020 1:10 AM EDT 04/25/2020 1:19 AM EDT Narrative Resulting Agency Comment Spec In Lab Dennis PA HEMATOLOGY ORDERA BLES Performing Organization Address [facility]/ZIP Co de Phone Number [facility] [place] [place] [address] * (ABNORMAL) Phosphorus (04/25/2020 1:10 AM EDT) Phosphorus 2.1(L) 2.5 - 4.5 mg/dL [facility] Blood specimen (specimen) 04/25/2020 1:10 AM EDT 04/25/2020 1:19 AM EDT Narrative Resulting Agency Comment Spec In Lab Jana Trinh MD CHEMISTRY ORDERABLES Performing Organization Address City/[facility]/ZIP Co de Phone Number [facility] [place] [address] * Magnesium (04/25/2020 1:10 AM EDT) Magnesium 0.84 0.69 - 1.07 mmol/L [facility] Blood specimen (specimen) 04/25/2020 1:10 AM EDT 04/25/2020 1:19 AM EDT Narrative Resulting Agency Comment Spec In Lab Jana Trinh MD CHEMISTRY ORDERABLES [facility] [place] [place] [address] * (ABNORMAL) Basic Metabolic Panel (non-fasting) (04/25/2020 1:10 AM EDT) Glucose 200(H) 65 - 199 mg/dL [facility] Comment:Diabetes: >=200 mg/d L plus symptoms Blood Urea Nitrogen 14 10 - 20 mg/dL [facility] Creatinine 0.43(L) 0.80 - 1.50 mg/dL [facility] Sodium 138 135 - 145 mmol/L [facility] Potassium 3.7 3.5 - 5.0 mmol/L [facility] Comment: Please note: ??Patients with WBC >100,000 may have falsely elevated Potassium levels. ??For accurate Potassium quantification in these patients send serum separator tube (gold top) for subsequent determinations. ??Contact the Clinical Chemistry Laboratory if there are any questions. Chloride 104 98 - 107 mmol/L [facility] Carbon Dioxide 24 22 - 31 mmol/L [facility] Anion Gap 10 5 - 15 mmol/L [facility] Calcium 8.1(L) 8.5 - 10.5 mg/dL [facility] Est Glomerular Filtration Rate 124 >=60 mL/min/1. 73 m?? [facility] Comment: The eGFR was calculated using the CKD-EPI equation. As with all creatinine based estimates of kidney function, eGFR values calculated with the CKD-EPI equation are not accurate in patients with acute kidney failure, extremes of body mass or the acutely ill. http://[facility] eGFR 144 >=60 mL/min/1. 73 m?? [facility] Comment: The eGFR was calculated using the CKD-EPI equation. As with all creatinine based estimates of kidney function, eGFR values calculated with the CKD-EPI equation are not accurate in patients with acute kidney failure, extremes of body mass or the acutely ill. http://[facility]nkf Blood specimen (specimen) 04/25/2020 1:10 AM EDT 04/25/2020 1:19 AM EDT Narrative Resulting Agency Comment Spec In Lab Jana Trinh MD CHEMISTRY ORDERABLES Performing Organization Address [facility] Co de Phone Number [facility] [place] [address] * POCT Glucose (04/24/2020 11:33 AM EDT) Glucose, POC 164 65 - 199 mg/dL [facility] Comment: Supplemental ranges: <140 mg/dL before meals <180 mg/dL all other times of the day Blood specimen (specimen) 04/24/2020 11:33 AM EDT 04/24/2020 11:33 AM EDT Jana Trinh MD POINT OF CARE TEST O RDERABLES Performing Organization Address [facility] Co de Phone Number [facility] [place] [address] * Potassium (04/24/2020 11:30 AM EDT) Potassium 3.7 3.5 - 5.0 mmol/L [facility] Comment: Please note: ??Patients with WBC >100,000 may have falsely elevated Potassium levels. ??For accurate Potassium quantification in these patients send serum separator tube (gold top) for subsequent determinations. ??Contact the Clinical Chemistry Laboratory if there are any questions. Blood specimen (specimen) 04/24/2020 11:30 AM EDT 04/24/2020 11:41 AM EDT Narrative Resulting Agency Comment Spec In Lab Jana Trinh MD CHEMISTRY ORDERABLES Performing Organization Address [facility]/ZIP Co de Phone Number [facility] [place] [address] * POCT Glucose (04/24/2020 7:40 AM EDT) Glucose, POC 135 65 - 199 mg/dL [facility] Comment: Supplemental ranges: <140 mg/dL before meals <180 mg/dL all other times of the day Blood specimen (specimen) 04/24/2020 7:40 AM EDT 04/24/2020 7:40 AM EDT Jana Trinh MD POINT OF CARE TEST O RDERABLES Performing Organization Address [facility] Co de Phone Number [facility] [place] [address] * XR Chest One View (04/24/2020 5:35 AM EDT) Anatomical Region Laterality Modality Chest N/A Digital Radiogra phy Impressions 04/24/2020 9:09 AM EDT No developing infiltrates or congestive changes are seen Thank you for letting us participate in the care of this patient. For questions regarding this report, please contact the number below. ? Narrative 04/24/2020 9:09 AM EDT EXAMINATION: XR CHEST ONE VIEW CLINICAL HISTORY: Desat, tachy TECHNIQUE: 1 view of the chest COMPARISON: 04/23/2020 FINDINGS: Heart size is normal. Endotracheal tube remains in good position, nasogastric tube extends below the diaphragm. A left subclavian vein catheter with the tip in the upper superior vena cava is unchanged. Lungs and pleural spaces appear clear, no mediastinal widening is seen. Procedure Note Eagle Babcock MD - 04/24/2020 EXAMINATION: XR CHEST ONE VIEW CLINICAL HISTORY: Desat, tachy TECHNIQUE: 1 view of the chest COMPARISON: 04/23/2020 FINDINGS: Heart size is normal. Endotracheal tube remains in good position,nasogastric tube extends below the diaphragm. A left subclavian vein catheter with thetip in the upper superior vena cava is unchanged. Lungs and pleural spaces appear clear, no mediastinal widening is seen. IMPRESSION No developing infiltrates or congestive changes are seen Thank you for letting us participate in the care of this patient. Forquestions regarding this report, please contact the number below. James Shah PITCH FILLER IMG DX ORDERABLE S * (ABNORMAL) Differential, Automated (04/24/2020 2:15 AM EDT) Neutrophil % 69.5 % [facility] Neutrophil Absolute 7.00(H) 1.70 - 6.10 x10(3)/mc L [facility] Lymph % 19.0 % [facility] Lymphocytes Abs 1.9 0.9 - 3.2 x10(3)/mc L [facility] Monocyte % 10.7 % [facility] Monocyte Abs 1.1(H) 0.3 - 0.9 x10(3)/mc L [facility] Eos % 0.2 % [facility] Eosinophils Abs 0.0 0.0 - 0.4 x10(3)/mc L [facility] Basophil % 0.2 % [facility] Baso Absolute 0.0 0.0 - 0.1 x10(3)/mc L [facility] Immature Gran % 0.40 % [facility] Comment: Immature granulocytes(IG's)percentage and absolute count will include metamyelocytes, myelocytes, and promyelocytes. Blood smears from CBCs yielding IG's will be scanned manually for concordance. If this scan disagrees with the automated IG or if promyelocytes are noted, a manual differential will be performed. Immature Gran Absolute 0.04 0.00 - 0.04 x10(3)/mc L [facility] Blood specimen (specimen) 04/24/2020 2:15 AM EDT 04/24/2020 2:26 AM EDT Narrative Resulting Agency Comment Spec In Lab Dennis PA HEMATOLOGY ORDERA BLES [facility] [place] [address] * (ABNORMAL) Hemogram (04/24/2020 2:15 AM EDT) White Blood Cell 10.1(H) 4.0 - 9.5 x10(3)/mc L [facility] Red Blood Cell 3.69(L) 4.58 - 5.54 x10(6)/mc L [facility] Hemoglobin 12.3(L) 13.7 - 16.5 gm/dL [facility] Hematocrit 36.4(L) 40.5 - 48.5 % [facility] Mean Cell Volume 98.6(H) 82.9 - 93.[address] [facility] Mean Cell Hemoglobin 33.3(H) 27.5 - 32.[address] [facility] Mean Cell Hemoglobin Concentration 33.8 32.0 - 35.7 gm/dL [facility] Platelet 143(L) 145 - 357 x10(3)/mc L [facility] RDW Standard Deviation 45.6(H) 36.0 - 45.[address] [facility] RDW coefficient of variation 12.6 11.4 - 13.8 % [facility] Mean Platelet Volume 9.3 7.6 - 12.[address] [facility] NRBC% auto 0.0 % [facility] NRBC Absolute 0.000 0.000 - 0.000 x10(3)/mc L [facility] Blood specimen (specimen) 04/24/2020 2:15 AM EDT 04/24/2020 2:26 AM EDT Narrative Resulting Agency Comment Spec In Lab Dennis PA HEMATOLOGY ORDERA BLES [facility] [place] [address] * (ABNORMAL) Phosphorus (04/24/2020 2:15 AM EDT) Phosphorus 1.8(L) 2.5 - 4.5 mg/dL [facility] Blood specimen (specimen) 04/24/2020 2:15 AM EDT 04/24/2020 2:26 AM EDT Narrative Resulting Agency Comment Spec In Lab Jana Trinh MD CHEMISTRY ORDERABLES Performing Organization Address [facility] Co de Phone Number [facility] [place] [address] * Magnesium (04/24/2020 2:15 AM EDT) Magnesium 0.84 0.69 - 1.07 mmol/L [facility] Blood specimen (specimen) 04/24/2020 2:15 AM EDT 04/24/2020 2:26 AM EDT Narrative Resulting Agency Comment Spec In Lab Jana Trinh MD CHEMISTRY ORDERABLES Performing Organization Address [facility]/ZIP Co de Phone Number [facility] [place] [address] * (ABNORMAL) Basic Metabolic Panel (non-fasting) (04/24/2020 2:15 AM EDT) Glucose 163 65 - 199 mg/dL [facility] Comment:Diabetes: >=200 mg/d L plus symptoms Blood Urea Nitrogen 9(L) 10 - 20 mg/dL [facility] Creatinine 0.45(L) 0.80 - 1.50 mg/dL [facility] Sodium 138 135 - 145 mmol/L [facility] Potassium 3.4(L) 3.5 - 5.0 mmol/L [facility] Comment: Please note: ??Patients with WBC >100,000 may have falsely elevated Potassium levels. ??For accurate Potassium quantification in these patients send serum separator tube (gold top) for subsequent determinations. ??Contact the Clinical Chemistry Laboratory if there are any questions. Chloride 102 98 - 107 mmol/L [facility] Carbon Dioxide 26 22 - 31 mmol/L [facility] Anion Gap 10 5 - 15 mmol/L [facility] Calcium 8.1(L) 8.5 - 10.5 mg/dL [facility] Est Glomerular Filtration Rate 122 >=60 mL/min/1. 73 m?? [facility] Comment: The eGFR was calculated using the CKD-EPI equation. As with all creatinine based estimates of kidney function, eGFR values calculated with the CKD-EPI equation are not accurate in patients with acute kidney failure, extremes of body mass or the acutely ill. http://[facility] eGFR 142 >=60 mL/min/1. 73 m?? [facility] Comment: The eGFR was calculated using the CKD-EPI equation. As with all creatinine based estimates of kidney function, eGFR values calculated with the CKD-EPI equation are not accurate in patients with acute kidney failure, extremes of body mass or the acutely ill. http://[facility]f Blood specimen (specimen) 04/24/2020 2:15 AM EDT 04/24/2020 2:26 AM EDT Narrative Resulting Agency Comment Spec In Lab Jana Trinh MD CHEMISTRY ORDERAB[place] [address] * MRI Brain wwo Contrast (Generic) (04/23/2020 10:41 PM EDT) Anatomical Region Laterality Modality Head Magnetic Resonan ce Impressions 04/24/2020 6:27 AM EDT 1. ??Scattered punctate cortical and white matter acute infarcts, likely microembolic, RIGHT greater than LEFT. 2. ??Redemonstrated large amount of intraventricular hemorrhage dissecting from the RIGHT caudate head and globus pallidus, with persistent hydrocephalus and regional mass effect as described above. Thank you for letting us participate in the care of this patient. For questions regarding this report, please contact the number below. ? Narrative 04/24/2020 6:27 AM EDT EXAMINATION: MRI BRAIN WWO CONTRAST (GENERIC) CLINICAL HISTORY: Cerebral hemorrhage suspected Worsening left motor weakness, known right caudate hemorrhage and IVH TECHNIQUE: MRI of the brain was performed before and after the intravenous administration of 13cc Dotarem. COMPARISON: CT head April 22, 2020. MRI brain April 21, 2020. FINDINGS: Patient motion artifact degrades image quality of portions of the examination rendering suboptimal assessment; within these confines: New punctate foci of slow diffusion scattered throughout the RIGHT greater than LEFT cerebri which are predominantly cortical although a few white matter foci are noted on the RIGHT. Redemonstrated large amount of intraventricular hemorrhage, extending from the RIGHT caudate head and globus pallidus, casting the near entirety of the RIGHT lateral ventricle, third ventricle, fourth ventricle. Small amount of hemorrhage also noted within the LEFT lateral ventricular body and layering in the occipital horn. Redemonstrated leftward bowing of the septum pellucidum. Redemonstrated downward transtentorial herniation with effacement of the suprasellar cistern. LEFT frontal approach ventricular catheter redemonstrated. Ventricles appear similar in size/configuration, with similar mild periventricular edema. Suspected at least small amount of scattered subarachnoid hemorrhage on the motion degraded FLAIR images. Focal and patchy bihemispheric white matter T2/FLAIR hyperintensities are nonspecific but may be sequela of chronic microangiopathy although other etiologies are not excluded. No abnormal enhancement appreciated. Trace fluid scattered within the mastoid air cells. Bilateral subgaleal edema/fluid. Procedure Note Chang Rincon MD - 04/24/2020 EXAMINATION: MRI BRAIN WWO CONTRAST (GENERIC) CLINICAL HISTORY: Cerebral hemorrhage suspected Worsening left motor weakness, known right caudate hemorrhage and IVH TECHNIQUE: MRI of the brain was performed before and after the intravenousadministration of 13cc Dotarem. COMPARISON: CT head April 22, 2020. MRI brain April 21, 2020. FINDINGS: Patient motion artifact degrades image quality of portions of theexamination rendering suboptimal assessment; within these confines: New punctate foci of slow diffusion scattered throughout the RIGHT greaterthan LEFT cerebri which are predominantly cortical although a few white matterfoci are noted on the RIGHT. Redemonstrated large amount of intraventricular hemorrhage, extending fromthe RIGHT caudate head and globus pallidus, casting the near entirety of theRIGHT lateral ventricle, third ventricle, fourth ventricle. Small amount ofhemorrhage also noted within the LEFT lateral ventricular body and layering in the occipital horn. Redemonstrated leftward bowing of the septum pellucidum. Redemonstrateddownward transtentorial herniation with effacement of the suprasellar cistern.LEFT frontal approach ventricular catheter redemonstrated. Ventricles appearsimilar in size/configuration, with similar mild periventricular edema. Suspected at least small amount of scattered subarachnoid hemorrhage onthe motion degraded FLAIR images. Focal and patchy bihemispheric whitematter T2/FLAIR hyperintensities are nonspecific but may be sequela of chronic microangiopathy although other etiologies are not excluded. No abnormal enhancement appreciated. Trace fluid scattered within the mastoid air cells. Bilateral subgaleal edema/fluid. IMPRESSION 1. Scattered punctate cortical and white matter acute infarcts, likely microembolic, RIGHT greater than LEFT. 2. Redemonstrated large amount of intraventricular hemorrhage dissectingfrom the RIGHT caudate head and globus pallidus, with persistent hydrocephalusand regional mass effect as described above. Thank you for letting us participate in the care of this patient. Forquestions regarding this report, please contact the number below. Jana Trinh MD IMG MRI ORDERABLES * Blood culture (04/23/2020 5:20 PM EDT) Blood Culture No growth at [address] [facility] Blood specimen (specimen) 04/23/2020 5:20 PM EDT 04/23/2020 5:55 PM EDT Comment:R FA Narrative Resulting Agency Comment Spec In Lab Consuelo Sharp APRN MICROBIOLOGY - BLOOD ORDERABLES Performing Organization Address [facility]/[place] [address] * Blood culture (04/23/2020 5:20 PM EDT) Blood Culture No growth at [address] [facility] Blood specimen (specimen) 04/23/2020 5:20 PM EDT 04/23/2020 5:54 PM EDT Comment:RH Narrative Resulting Agency Comment Spec In Lab Consuelo Sharp APRN MICROBIOLOGY - BLOOD ORDERABLES Performing Organization Address [facility] [place] [address] * XR Chest One View (04/23/2020 4:38 PM EDT) Anatomical Region Laterality Modality Chest N/A Digital Radiogra phy Impressions 04/23/2020 4:42 PM EDT Minimal hazy airspace opacity at the right lung base, question aspiration pneumonitis or early/developing pneumonia. Thank you for letting us participate in the care of this patient. For questions regarding this report, please contact the number below. ? Electronically signed by: Claritza Diane [facility] ([phone]), at 04/23/2020 4:42 PM Narrative 04/23/2020 4:42 PM EDT EXAMINATION: XR CHEST ONE VIEW CLINICAL HISTORY: febrile TECHNIQUE: Portable AP chest radiograph on ??04/23/2020 at 1633 hours. COMPARISON: 04/20/2020 at 2314 hours. FINDINGS: Equipment in unchanged position. Mild new hazy airspace opacity at the right lung base. Left lung is clear. No pneumothorax seen. No definite pleural effusion. Unchanged cardiomediastinal silhouette and vascular markings. Procedure Note Claritza Diane MD - 04/23/2020 EXAMINATION: XR CHEST ONE VIEW CLINICAL HISTORY: febrile TECHNIQUE: Portable AP chest radiograph on 04/23/2020 at 1633 hours. COMPARISON: 04/20/2020 at 2314 hours. FINDINGS: Equipment in unchanged position. Mild new hazy airspace opacityat the right lung base. Left lung is clear. No pneumothorax seen. No definitepleural effusion. Unchanged cardiomediastinal silhouette and vascular markings. IMPRESSION Minimal hazy airspace opacity at the right lung base, question aspiration pneumonitis or early/developing pneumonia. Thank you for letting us participate in the care of this patient. Forquestions regarding this report, please contact the number below. Consuelo Sharp APRN IMG DX ORDERABLES * Urine Hold (04/23/2020 3:27 PM EDT) Hold, Urine Sample in lab. [facility] Urine specimen (specimen) Urine / Unknown 04/23/2020 3:27 PM EDT 04/23/2020 3:55 PM EDT Consuelo Sharp SHAWN URINE ORDERABLES [facility] [place] [address] * _Urinalysis with microscopic (04/23/2020 3:27 PM EDT) Glucose, Urine Dipstick Negative Negative mg/dL [facility] Protein, Urine Dipstick Negative Negative mg/dL [facility] Bilirubin, Urine Dipstick Negative Negative mg/dL [facility] Comment: Clinical correlation required for positive Urine Bilirubin results as false positive may occur with some drugs and drug related products. If a false positive is suspected a serum total bilirubin should be considered if clinically indicated. Urobilinogen, Urine Dipstick Normal Normal mg/dL [facility] pH, Urn (dipstick) 8.0 5.0 - 8.0 [facility] Blood, Urine Dipstick Negative Negative mg/dL [facility] Ketone, Urine Dipstick Negative Negative mg/dL [facility] Nitrite, Urine Dipstick Negative Negative [facility] Leukocytes, Urine Dipstick Negative Negative [facility] Appearance, Urine Dipstick Clear Clear [facility] Specific [place] Urine Automated 1.012 1.006 - 1.030 [facility] Color, Urine Dipstick Yellow Yellow [facility] RBC, Urine 1 0 - 3 /HPF [facility] WBC, Urine 1 0 - 3 /HPF [facility] Hyaline Casts, Urine 1 0 - 2 /LPF [facility] Urine specimen (specimen) 04/23/2020 3:27 PM EDT 04/23/2020 3:55 PM EDT Narrative Resulting Agency Comment Spec In Lab Consuelofanny Sharp PITCH FILLER URINE ORDERABLES Performing Organization Address City/[facility]/ZIP Co de Phone Number [facility] [place] [address] * CSF Cell Count 2nd count (04/23/2020 3:19 PM EDT) Tube # 2nd count Not Perf [facility] LABORATORY Comment:One tube sent, Shunt . RBC CSF CT #2 Not Perf [facility] Comment:One tube sent, Shunt . Cerebrospinal fluid specimen (specimen) Micro Spec / Unknown 04/23/2020 3:19 PM EDT 04/23/2020 4:06 PM EDT Narrative Resulting Agency Comment Spec In Lab Consuelo Janette Francisco BAKERN BODY FLUIDS AND STOO LS ORDERABLES Performing Organization Address City/[facility]/ZIP Co de Phone Number [facility] [place] [address] * (ABNORMAL) CSF Cell Count (04/23/2020 3:19 PM EDT) Tube # counted [address] [facility] AUTO NUC CSF CT 99(H) 0 - 5 /mcl [facility] Comment: If Nucleated CSF CT result equals Zero, no smear is made and no Differential is performed. If Nucleated CSF CT result is 1-5 / mcL, a smear is made and scanned but no results are reported unless abnormalities are noted. If Nucleated CSF CT result is 6 /mcL or greater, a smear is made and manual differential is performed and reported. Nucleated CSF CT results on a CSF fluid must be correlated with clinical condition. RBC CSF CT 9,200 /mcl [facility] Segmented Neutrophils, CSF 4 % [facility] Lymphocyte, CSF 94 % [facility] Macrophage CSF 2 % [facility] Cerebrospinal fluid specimen (specimen) Micro Spec / Unknown 04/23/2020 3:19 PM EDT 04/23/2020 4:06 PM EDT Narrative Resulting Agency Comment Spec In Lab Consuelofanny Sharp PITCH FILLER BODY FLUIDS AND STOO LS ORDERABLES Performing Organization Address City/[facility]/ZIP Co de Phone Number [facility] [place] [address] * CSF DESC 1 (04/23/2020 3:19 PM EDT) Tube Num CSF #[address] [facility] Comment:One tube sent, Shunt . Color, CSF Red Colorless [facility] Appearance, CSF Cloudy Clear [facility] Total Vol, CSF 6.[address] [facility] Cerebrospinal fluid specimen (specimen) Micro Spec / Unknown 04/23/2020 3:19 PM EDT 04/23/2020 4:06 PM EDT Narrative Resulting Agency Comment Spec In Lab Consuelofanny Sharp PITCH FILLER BODY FLUIDS AND STOO LS ORDERABLES Performing Organization Address [facility] Co de Phone Number [facility] [place] [address] * CSF Culture (04/23/2020 3:19 PM EDT) Central Nervous System Culture No growth at [address] [facility] Gram Stain Cytocentrifuge Gram Stain performed Neutrophils seen No microorganisms seen. [facility] Cerebrospinal fluid specimen (specimen) 04/23/2020 3:19 PM EDT 04/23/2020 4:15 PM EDT Comment:SHUNT Narrative Resulting Agency Comment Spec In Lab Consuelofanny Sharp PITCH FILLER MICROBIOLOGY - GENER AL ORDERABLES Performing Organization Address City/[facility]/ZIP Co de Phone Number [facility] [place] [address] * (ABNORMAL) Lower Respiratory Culture Tracheal Aspirate (04/23/2020 3:19 PM EDT) Lower Respiratory Culture Moderate Haemophilus influenzae : Beta-lactamase result predicts organism is likely resistant to ampicillin and penicillin. Further susceptibility testing performed by request. Few mixed bacterial morphotypes suggestive of normal upper respiratory filiberto including Rare Gram Negative Rods (A) [facility] Gram Stain Moderate Neutrophils seen No squamous epithelial cells seen Many small pleomorphic Gram Negative Rods seen Few mixed bacterial morphotypes suggestive of normal upper respiratory filiberto (A) [facility] Organism Haemophilus influenzae(A) [facility] Organism Gram Negative Rods(A) [facility] Organism small pleomorphic Gram Negative Rods(A) [facility] Specimen from trachea obtained by aspiration (specimen) 04/23/2020 3:19 PM EDT 04/23/2020 4:42 PM EDT Narrative Resulting Agency Comment Spec In Lab Consuelo Sharp APRN MICROBIOLOGY - GENER AL ORDERABLES Performing Organization Address [facility] Co de Phone Number [facility] [place] [address] * Ammonia (04/23/2020 2:00 PM EDT) Ammonia 38 16 - 60 mcmol/L [facility] Blood specimen (specimen) 04/23/2020 2:00 PM EDT 04/23/2020 2:21 PM EDT Narrative Resulting Agency Comment Spec In Lab Consuelo Sharp APRN CHEMISTRY ORDERABLES Performing Organization Address [facility] de Phone Number [facility] [place] [address] * Potassium (04/23/2020 10:00 AM EDT) Potassium 4.0 3.5 - 5.0 mmol/L [facility] Comment: Please note: ??Patients with WBC >100,000 may have falsely elevated Potassium levels. ??For accurate Potassium quantification in these patients send serum separator tube (gold top) for subsequent determinations. ??Contact the Clinical Chemistry Laboratory if there are any questions. Blood specimen (specimen) 04/23/2020 10:00 AM EDT 04/23/2020 10:08 AM EDT Narrative Resulting Agency Comment Spec In Lab Jana Trinh MD CHEMISTRY ORDERABLES Performing Organization Address [facility]/ZIP Co de Phone Number [facility] [place] [address] * (ABNORMAL) Differential, Automated (04/23/2020 3:50 AM EDT) Neutrophil % 74.5 % [facility] Neutrophil Absolute 6.83(H) 1.70 - 6.10 x10(3)/mc L [facility] Lymph % 15.9 % [facility] Lymphocytes Abs 1.5 0.9 - 3.2 x10(3)/mc L [facility] Monocyte % 8.8 % [facility] Monocyte Abs 0.8 0.3 - 0.9 x10(3)/mc L [facility] Eos % 0.5 % [facility] Eosinophils Abs 0.0 0.0 - 0.4 x10(3)/ L [facility] Basophil % 0.1 % [facility] Baso Absolute 0.0 0.0 - 0.1 x10(3)/mc L [facility] Immature Gran % 0.20 % [facility] Comment: Immature granulocytes(IG's)percentage and absolute count will include metamyelocytes, myelocytes, and promyelocytes. Blood smears from CBCs yielding IG's will be scanned manually for concordance. If this scan disagrees with the automated IG or if promyelocytes are noted, a manual differential will be performed. Immature Gran Absolute 0.02 0.00 - 0.04 x10(3)/mc L [facility] Blood specimen (specimen) 04/23/2020 3:50 AM EDT 04/23/2020 3:56 AM EDT Narrative Resulting Agency Comment Spec In Lab Jacob PA HEMATOLOGY ORDERABLE S Performing Organization Address City/[facility]/ZIP Co de Phone Number [facility] [place] [address] * (ABNORMAL) Hemogram (04/23/2020 3:50 AM EDT) White Blood Cell 9.2 4.0 - 9.5 x10(3)/mc L [facility] Red Blood Cell 3.43(L) 4.58 - 5.54 x10(6)/mc L [facility] Hemoglobin 11.7(L) 13.7 - 16.5 gm/dL [facility] Hematocrit 34.3(L) 40.5 - 48.5 % [facility] Mean Cell Volume 100.0(H) 82.9 - 93.1 [facility] Mean Cell Hemoglobin 34.1(H) 27.5 - 32.[address] [facility] Mean Cell Hemoglobin Concentration 34.1 32.0 - 35.7 gm/dL [facility] Platelet 124(L) 145 - 357 x10(3)/[facility]OR[facility] RDW Standard Deviation 47.5(H) 36.0 - 45.0 [facility] RDW coefficient of variation 13.0 11.4 - 13.8 % [facility] Mean Platelet Volume 9.3 7.6 - 12.9 [facility] NRBC% auto 0.0 % [facility] NRBC Absolute 0.000 0.000 - 0.000 x10(3)/[facility] Blood specimen (specimen) 04/23/2020 3:50 AM EDT 04/23/2020 3:56 AM EDT Narrative Resulting Agency Comment Spec In Lab Jacob PA HEMATOLOGY ORDERABLE S [facility] [place] [address] * (ABNORMAL) Phosphorus (04/23/2020 3:50 AM EDT) Phosphorus 1.2(Critic al) 2.5 - 4.5 mg/dL [facility] Comment:Called by: [facility], Read back by: saray hall, Date/Time:04/23/20 04:40. Blood specimen (specimen) 04/23/2020 3:50 AM EDT 04/23/2020 3:56 AM EDT Narrative Resulting Agency Comment Spec In Lab Jana Trinh MD CHEMISTRY ORDERABLES Performing Organization Address [facility] Co de Phone Number [facility] [place] [address] * Magnesium (04/23/2020 3:50 AM EDT) Magnesium 0.87 0.69 - 1.07 mmol/L [facility] Blood specimen (specimen) 04/23/2020 3:50 AM EDT 04/23/2020 3:56 AM EDT Narrative Resulting Agency Comment Spec In Lab Jana Trinh MD CHEMISTRY ORDERABLES Performing Organization Address [facility] Co de Phone Number [facility] [place] [address] * (ABNORMAL) Basic Metabolic Panel (non-fasting) (04/23/2020 3:50 AM EDT) Glucose 146 65 - 199 mg/dL [facility] Comment:Diabetes: >=200 mg/d L plus symptoms Blood Urea Nitrogen 10 10 - 20 mg/dL [facility] Creatinine 0.36(L) 0.80 - 1.50 mg/dL [facility] Sodium 140 135 - 145 mmol/L [facility] Potassium 3.8 3.5 - 5.0 mmol/L [facility] Comment: Please note: ??Patients with WBC >100,000 may have falsely elevated Potassium levels. ??For accurate Potassium quantification in these patients send serum separator tube (gold top) for subsequent determinations. ??Contact the Clinical Chemistry Laboratory if there are any questions. Chloride 107 98 - 107 mmol/L [facility] Carbon Dioxide 26 22 - 31 mmol/L [facility] Anion Gap 7 5 - 15 mmol/L [facility] Calcium 7.8(L) 8.5 - 10.5 mg/dL [facility] Est Glomerular Filtration Rate 134 >=60 mL/min/1. 73 m?? [facility] Comment: The eGFR was calculated using the CKD-EPI equation. As with all creatinine based estimates of kidney function, eGFR values calculated with the CKD-EPI equation are not accurate in patients with acute kidney failure, extremes of body mass or the acutely ill. http://[facility] eGFR 155 >=60 mL/min/1. 73 m?? [facility] Comment: The eGFR was calculated using the CKD-EPI equation. As with all creatinine based estimates of kidney function, eGFR values calculated with the CKD-EPI equation are not accurate in patients with acute kidney failure, extremes of body mass or the acutely ill. http://[facility] Blood specimen (specimen) 04/23/2020 3:50 AM EDT 04/23/2020 3:56 AM EDT Narrative Resulting Agency Comment Spec In Lab Jana Trinh MD CHEMISTRY ORDERABLES [facility] [place] [address] * (ABNORMAL) Potassium (04/22/2020 8:11 PM EDT) Potassium 3.0(Criti ju) 3.5 - 5.0 mmol/L [facility] Comment: Called by: clara, Read back by: saray hall, Date/Time:04/22/20 20:50. Please note: ??Patients with WBC >100,000 may have falsely elevated Potassium levels. ??For accurate Potassium quantification in these patients send serum separator tube (gold top) for subsequent determinations. ??Contact the Clinical Chemistry Laboratory if there are any questions. Blood specimen (specimen) 04/22/2020 8:11 PM EDT 04/22/2020 8:18 PM EDT Narrative Resulting Agency Comment Spec In Lab Jana Trinh MD CHEMISTRY ORDERABLES [facility] [place] [address] * CT Head wo Contrast (Generic) (04/22/2020 4:54 PM EDT) Anatomical Region Laterality Modality Head Computed Tomogra phy Impressions 04/22/2020 5:05 PM EDT No significant interval change. Thank you for letting us participate in the care of this patient. For questions regarding this report, please contact the number below. ? Electronically signed by: Beronica Sanchez [facility] [place] ([phone]), at 04/22/2020 5:05 PM Narrative 04/22/2020 5:05 PM EDT EXAMINATION: CT HEAD WO CONTRAST (GENERIC) CLINICAL HISTORY: Intracranial hemorrhage, follow up TECHNIQUE: CT Head was performed without contrast COMPARISON: CT head 04/21/2020. FINDINGS: The large right basal ganglia hemorrhage that decompresses into the ventricular system is not significantly changed in size. Blood continues to cast the lateral third and fourth ventricles with moderate dilatation of the lateral and third ventricles. Left frontal approach ventricular catheter is in place. Procedure Note Beronica Sanchez MD - 04/22/2020 EXAMINATION: CT HEAD WO CONTRAST (GENERIC) CLINICAL HISTORY: Intracranial hemorrhage, follow up TECHNIQUE: CT Head was performed without contrast COMPARISON: CT head 04/21/2020. FINDINGS: The large right basal ganglia hemorrhage that decompresses intothe ventricular system is not significantly changed in size. Blood continuesto cast the lateral third and fourth ventricles with moderate dilatation of thelateral and third ventricles. Left frontal approach ventricular catheter is inplace. IMPRESSION No significant interval change. Thank you for letting us participate in the care of this patient. Forquestions regarding this report, please contact the number below. Jana Trinh MD IMG CT ORDERABLES * ECHO COMPLETE (04/22/2020 1:23 PM EDT) EF 60 HEARTLAB SYSTEM Anatomical Region Laterality Modality Other 04/22/2020 Narrative 04/22/2020 1:52 PM EDT Procedure: ?Transthoracic Echocardiogram Patient: ?HORTENCIA Ceja ?(Age): 1960(60y) Med Rec#: ? [id number] ?Sex: ?M ? [place] [facility] [place]t / Wt: ??168(cm)/66(kg) Pt. Loc: ?ICU ? BSA: ?1.75 Study Date: ?? 04/22/2020 ?Pt. Type: Inpatient Tape: ? Referring: James Shah Reading: Beronica Wright ([id number]) Marketing Copywriter: Sharri Ibarra Can Tender: Salma Stevens Diagnosis: *Nontraumatic intracerebral hemorrhage, unspecified (I61.9) BP: ? 116/47 SUMMARY: 1. The left ventricular chamber size is normal. Left ventricular wall thickness is normal. There are no left ventricular segmental wall motion abnormalities. There is normal global left ventricular systolic function. ??Ejection fraction is estimated to be 60%. 2. The right ventricle is normal in size. Right ventricular global systolic function is normal. 3. There is no hemodynamically significant valve disease. 4. Pulmonary artery hypertension could not be assessed due to inadequate tricuspid regurgitation jet. 5. There is no evidence of a patent foramen ovale with agitated saline contrast. 6. See remainder of report for additional findings. Findings ? : Left Ventricle: ? The left ventricular chamber size is normal. ?Left ventricular wall thickness is normal. ?There is no evidence of LVOT obstruction. ?No ventricular septal defect is visualized. ?There is normal global left ventricular systolic function. ??Ejection fraction is estimated to be 60%. ?There are no left ventricular segmental wall motion abnormalities. ?Doppler assessment is consistent with normal left sided filling pressure. Left Atrium: ? The left atrium is normal in size. ?There is no evidence of a patent foramen ovale with agitated saline contrast. Right Ventricle: ? The right ventricle is normal in size. ?Right ventricular global systolic function is normal. ?Pulmonary artery hypertension could not be assessed due to inadequate tricuspid regurgitation jet. Right Atrium: ? The right atrium is probably normal in size. Aortic Valve: ? The aortic valve is probably tricuspid. ?Systolic excursion of the aortic valve is normal. ?There is no evidence of aortic valve stenosis. ?There is no evidence of aortic regurgitation. Mitral Valve: ? The mitral valve leaflets appear normal. ?There is trace mitral regurgitation present. Tricuspid Valve: ? The tricuspid valve appears normal in structure and function. Pulmonic Valve: ? The pulmonic valve appears normal. Pericardium: ? The pericardium appears normal and there is no evidence of a pericardial effusion. Aorta: ? The aortic root is normal in size. Pulmonary Artery: ? The main pulmonary artery is not well visualized. Venous: ? The inferior vena cava appears dilated. ?There is less than 50% respiratory change in the inferior vena cava dimension consistent with elevated right atrial pressure. Patient is mechanically vented Misc: ? Two-dimensional echo, spectral Doppler and color Doppler performed. Chambers 2D ?Value ?Units (Range) ? IVSd (2D) ? 0.91 ? cm ? LVPWd (2D) ?0.83 ? cm ? IVS:LVPW ratio (2D) 1.09 ? ratio ? RWT (2D) ?0.36 ? ratio ? RWT PW (2D) ? 0.35 ? ratio ? LVIDd (2D) ?4.83 ? cm ? LVIDs (2D) ?2.85 ? cm ? LVIDd (2D) index ?2.76 ? cm/m2 ? LVIDs (2D) index ?1.63 ? cm/m2 ? LV FS (2D) ?40.88 ?% ? EF Teichholz (2D) ?? 71.57 ?% ? Ao root diameter (2D3.13 ? cm (2.1 - 3.6) ? Volumes/Mass ?Value ?Units (Range) ? LA Area 4 CH ?21.1 ? cm2 (<21) ? LA ESV BP (A/L) inde30.06 ?ml/m2 ? LV mass (2D) ?143.14 ? g ? LV mass (2D) index ??81.79 ?g/m2 ? Diastolic/Systolic Function ?Value ?Units (Range) ? MV E-wave Vmax ?0.63 ? m/sec ? MV deceleration ijxj053.18 ? msec ? MV A-wave Vmax ?0.62 ? m/sec ? MV E:A ratio ?1.01 ? ratio ? LV septal e' Vmax ?? 0.1 ?m/sec ? LV lateral e' Vmax ??0.11 ? m/sec ? LV average e' Vmax ??0.11 ? m/sec ? LV E:e' septal ratio6.3 ?ratio ? LV E:e' lateral rati5.73 ? ratio ? LV average E:e' rati6 ?ratio ? Tricuspid Valve ?Value ?Units (Range) ? TR Vmax ? 1.81 ? m/sec ? TR peak gradient ?13.11 ?mmHg ? Wall Motion: Segment Name ?Rest ? Base-Anteroseptal ?? Normal ? Base-Anterior ? Normal ? Base-Anterolateral ??Normal ? Base-Posterolateral Normal ? Base-Inferior ? Normal ? Base-Inferoseptal ?? Normal ? Mid-Anteroseptal ?Normal ? Mid-Anterior ?Normal ? Mid-Anterolateral ?? Normal ? Mid-Posterolateral ??Normal ? Mid-Inferior ?Normal ? Mid-Inferoseptal ?Normal ? Calvin-Septal ? Normal ? Calvin-Anterior ? Normal ? Calvin-Lateral ?Normal ? Calvin-Inferior ? Normal ? Calvin-Tip ?Normal ? This report has been electronically signed by: Beronica Wright MD ? 04/22/2020 13:51:56 Images reviewed and interpretation verified [facility] Cardiac Ultrasound Laboratory Procedure Note Beronica Wright MD - 04/22/2020 Procedure: Transthoracic Echocardiogram Patient: HORTENCIA Ceja DOB(Age): 1960(60y) Med Rec#: [id number] Sex: M [place] [facility] [place]t / Wt: 168(cm)/66(kg) Pt. Loc: ICU BSA: 1.75 Study Date: 04/22/2020 Pt. Type: Inpatient Tape: Referring: James Shah Reading: Beronica Wright ([id number]) Marketing Copywriter: Sharri Ibarra Can Tender: Salma Stevens Diagnosis: *Nontraumatic intracerebral hemorrhage, unspecified (I61.9) BP: 116/47 SUMMARY: 1. The left ventricular chamber size is normal. Left ventricular wall thickness is normal. There are no left ventricular segmental wall motion abnormalities. There is normal global left ventricular systolic function. Ejection fraction is estimated to be 60%. 2. The right ventricle is normal in size. Right ventricular global systolic function is normal. 3. There is no hemodynamically significant valve disease. 4. Pulmonary artery hypertension could not be assessed due to inadequate tricuspid regurgitation jet. 5. There is no evidence of a patent foramen ovale with agitated saline contrast. 6. See remainder of report for additional findings. Findings : Left Ventricle: The left ventricular chamber size is normal. Left ventricular wall thickness is normal. There is no evidence of LVOT obstruction. No ventricular septal defect is visualized. There is normal global left ventricular systolic function. Ejection fraction is estimated to be 60%. There are no left ventricular segmental wall motion abnormalities. Doppler assessment is consistent with normal left sided filling pressure. Left Atrium: The left atrium is normal in size. There is no evidence of a patent foramen ovale with agitated saline contrast. Right Ventricle: The right ventricle is normal in size. Right ventricular global systolic function is normal. Pulmonary artery hypertension could not be assessed due to inadequate tricuspid regurgitation jet. Right Atrium: The right atrium is probably normal in size. Aortic Valve: The aortic valve is probably tricuspid. Systolic excursion of the aortic valve is normal. There is no evidence of aortic valve stenosis. There is no evidence of aortic regurgitation. Mitral Valve: The mitral valve leaflets appear normal. There is trace mitral regurgitation present. Tricuspid Valve: The tricuspid valve appears normal in structure and function. Pulmonic Valve: The pulmonic valve appears normal. Pericardium: The pericardium appears normal and there is no evidence of a pericardial effusion. Aorta: The aortic root is normal in size. Pulmonary Artery: The main pulmonary artery is not well visualized. Venous: The inferior vena cava appears dilated. There is less than 50% respiratory change in the inferior vena cava dimension consistent with elevated right atrial pressure. Patient is mechanically vented Misc: Two-dimensional echo, spectral Doppler and color Doppler performed. Chambers 2D Value Units (Range) IVSd (2D) 0.91 cm LVPWd (2D) 0.83 cm IVS:LVPW ratio (2D) 1.09 ratio RWT (2D) 0.36 ratio RWT PW (2D) 0.35 ratio LVIDd (2D) 4.83 cm LVIDs (2D) 2.85 cm LVIDd (2D) index 2.76 cm/m2 LVIDs (2D) index 1.63 cm/m2 LV FS (2D) 40.88 % EF Teichholz (2D) 71.57 % Ao root diameter (2D3.13 cm (2.1 - 3.6) Volumes/Mass Value Units (Range) LA Area 4 CH 21.1 cm2 (<21) LA ESV BP (A/L) inde30.06 ml/m2 LV mass (2D) 143.14 g LV mass (2D) index 81.79 g/m2 Diastolic/Systolic Function Value Units (Range) MV E-wave Vmax 0.63 m/sec MV deceleration uavg694.18 msec MV A-wave Vmax 0.62 m/sec MV E:A ratio 1.01 ratio LV septal e' Vmax 0.1 m/sec LV lateral e' Vmax 0.11 m/sec LV average e' Vmax 0.11 m/sec LV E:e' septal ratio6.3 ratio LV E:e' lateral rati5.73 ratio LV average E:e' rati6 ratio Tricuspid Valve Value Units (Range) TR Vmax 1.81 m/sec TR peak gradient 13.11 mmHg Wall Motion: Segment Name Rest Base-Anteroseptal Normal Base-Anterior Normal Base-Anterolateral Normal Base-Posterolateral Normal Base-Inferior Normal Base-Inferoseptal Normal Mid-Anteroseptal Normal Mid-Anterior Normal Mid-Anterolateral Normal Mid-Posterolateral Normal Mid-Inferior Normal Mid-Inferoseptal Normal Calvin-Septal Normal Calvin-Anterior Normal Calvin-Lateral Normal Calvin-Inferior Normal Calvin-Tip Normal This report has been electronically signed by: Beronica Wright MD 04/22/2020 13:51:56 Images reviewed and interpretation verified [facility] Cardiac Ultrasound [facility] James Shah APRN ECHO ORDERABLES * IR Arteriogram Cerebral (04/22/2020 11:01 AM EDT) Anatomical Region Laterality Modality X-Ray Angiograph y Impressions 05/20/2020 2:42 PM EDT : 1) No evidence of aneurysms, AVMs or AVFs. Attending attestations: I was present during the intra-service time as documented by the IR Nurse I was the attending physician supervising the medical assistant prn in the above care and I was present with the medical assistant prn for the entire procedure. Narrative 05/20/2020 2:42 PM EDT [facility] [place]BRAL [place]GRAPHY [place] PATIENT NAME: ? Ollie Burnett Sr. : ?1960 MRN: ?[id number] CASE DATE: ?04/22/2020 ATTENDING: ?Ronda Garrison MD ? ASSISTANTS: ? 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 POSTOPERATIVE DIAGNOSIS: Same PROCEDURE: Diagnostic cerebral angiography Radial artery ultrasound for arterial access TECHNIQUE: Selective catheterization and Angiogram: Left internal carotid artery (AP and Lat) Selective catheterization and angiogram: Left external carotid artery (AP and Lat) Selective catheterization and Angiogram: Right internal carotid artery (AP, Lat, and Oblique views) Selective catheterization and Angiogram: Right external carotid artery (AP and Lat) Selective catheterization and Angiogram: Right vertebral artery (AP and Lat) ANESTHETIC General anesthesia INDICATIONS: This 60 y.o. male with history of alcohol and Ritalin abuse was found to have right basal ganglia hemorrhage with intraventricular extension after he was found down. ??A diagnostic cerebral angiogram was offered to evaluate for any cerebrovascular abnormalities. ??Risks, benefits, and alternatives were discussed with the patient's family. ??They understood all risks and agreed to proceed with the procedure. DESCRIPTION OF PROCEDURE: The patient was brought to the interventional radiology suite and positioned on the angiography table. ??He was placed under general anesthesia by the anesthesiology team. ??Bilateral femoral regions and the right wrist were prepped and then sterilely draped. ??A timeout was performed. ??Using ultrasound guidance, the right radial artery was identified and accessed with a micropuncture kit. ??A 5Fr Glidesheath was then inserted without complication and connected to a constant heparinized drip. ??Spasmolytics were infused through the sheath to prevent vasospasm of the radial artery. A 5Fr Phillip-2 diagnostic catheter was advanced into the sheath over a 0.035 Glidewire. ??The catheter was brought over the aortic arch and the left CCA was selected. ??A roadmap was obtained and then the left internal carotid artery was selected. ??An angiogram was performed including AP and lateral views. ??The catheter was next positioned in the left ECA. ??An angiogram was performed to get AP and lateral views. The catheter was next pulled into the aortic arch and the right common carotid artery was selected. ??An angiogram was performed with biplane cranial views after selection of the right ICA. ??The catheter was next positioned in the right ECA and an angiogram was performed with biplane views. ??The catheter was next withdrawn to the right subclavian artery and then positioned in the right VA with roadmap guidance. ??Biplane angiography was performed. The diagnostic catheter was then completely withdrawn from the body. ??The right radial sheath was next removed while applying the TR band for compression. There were no complications during the procedure. The patient was stable throughout the procedure and brought to the recovery room at her neurologic baseline. FINDINGS: Left internal carotid artery angiogram: AP and lateral views of the intracranial ICA segment and its branches are of normal caliber and course. ??The MCA and MARGARET branches fill briskly. ??There is no early venous drainage. ??There are no aneurysms or AVM noted. Left external carotid artery angiogram: AP and lateral views show no early venous drainage. There is no evidence of any irregularity in the caliber of the ECA branches. Right internal carotid artery angiogram: ??AP and lateral views show the intracranial ICA segment and branches to have a normal course and caliber. The MCA and MARGARET branches fill briskly. ??There is no abnormality in the late arterial phase or stagnancy of any intracranial vessels. ??There is no evidence of any intradural aneurysms or early venous drainage to suggest fistulae or AVM. Right external carotid artery angiogram: AP and lateral biplane views show no evidence of any early venous drainage or fistulae. Right vertebral artery angiogram: Abhay and lateral views show normal arterial, capillary, and venous opacification. ??The right and left PICA origins as well as branches of the basilar artery fill normally. ??There is no evidence of any aneurysms, AVMs, or early venous drainage. Jana Trinh MD [facility] * (ABNORMAL) Differential, Automated (04/22/2020 12:50 AM EDT) Neutrophil % 80.3 % [facility] Neutrophil Absolute 6.21(H) 1.70 - 6.10 x10(3)/ L [facility] Lymph % 12.1 % [facility] Lymphocytes Abs 0.9 0.9 - 3.2 x10(3)/ L [facility] Monocyte % 7.2 % [facility] Monocyte Abs 0.6 0.3 - 0.9 x10(3)/ L [facility] Eos % 0.0 % [facility] Eosinophils Abs 0.0 0.0 - 0.4 x10(3)/ L [facility] Basophil % 0.1 % [facility] Baso Absolute 0.0 0.0 - 0.1 x10(3)/ L [facility] Immature Gran % 0.30 % [facility] Comment: Immature granulocytes(IG's)percentage and absolute count will include metamyelocytes, myelocytes, and promyelocytes. Blood smears from CBCs yielding IG's will be scanned manually for concordance. If this scan disagrees with the automated IG or if promyelocytes are noted, a manual differential will be performed. Immature Gran Absolute 0.02 0.00 - 0.04 x10(3)/mc L [facility] Blood specimen (specimen) 04/22/2020 12:50 AM EDT 04/22/2020 12:57 AM EDT Narrative Resulting Agency Comment Spec In Lab Jacob PA HEMATOLOGY ORDERABLE S [facility] [place] [address] * (ABNORMAL) Hemogram (04/22/2020 12:50 AM EDT) White Blood Cell 7.7 4.0 - 9.5 x10(3)/mc L [facility] Red Blood Cell 3.54(L) 4.58 - 5.54 x10(6)/mc L [facility] Hemoglobin 11.9(L) 13.7 - 16.5 gm/dL [facility] Hematocrit 35.7(L) 40.5 - 48.5 % [facility] Mean Cell Volume 100.8(H) 82.9 - 93.1 [facility] Mean Cell Hemoglobin 33.6(H) 27.5 - 32.[address] [facility] Mean Cell Hemoglobin Concentration 33.3 32.0 - 35.7 gm/dL [facility] Platelet 129(L) 145 - 357 x10(3)/mc L [facility] RDW Standard Deviation 47.5(H) 36.0 - 45.0 [facility] RDW coefficient of variation 12.7 11.4 - 13.8 % [facility] Mean Platelet Volume 9.3 7.6 - 12.9 [facility] NRBC% auto 0.0 % [facility] NRBC Absolute 0.000 0.000 - 0.000 x10(3)/ L [facility] Blood specimen (specimen) 04/22/2020 12:50 AM EDT 04/22/2020 12:57 AM EDT Narrative Resulting Agency Comment Spec In Lab Jacob AP HEMATOLOGY ORDERABLE S [facility] [place] [address] * (ABNORMAL) Hepatic Function Panel (04/22/2020 12:50 AM EDT) Protein, Total 5.9(L) 6.1 - 8.0 gm/dL [facility] Albumin 3.2 3.2 - 5.2 gm/dL [facility] Aspartate Aminotransferase 69(H) 0 - 39 unit/L [facility] Alanine Aminotransferase 84(H) 0 - 55 unit/L [facility] Alkaline Phosphatase 50 40 - 130 unit/L [facility] Bilirubin, Total 0.9 0.2 - 1.3 mg/dL [facility] Bilirubin, Direct 0.5(H) 0.0 - 0.3 mg/dL [facility] Blood specimen (specimen) 04/22/2020 12:50 AM EDT 04/22/2020 12:57 AM EDT Narrative Resulting Agency Comment Spec In Lab aJna Trinh MD CHEMISTRY ORDERABLES [facility] [place] [address] * (ABNORMAL) Phosphorus (04/22/2020 12:50 AM EDT) [facility] Phosphorus 1.9(L) 2.5 - 4.5 mg/dL [facility] Blood specimen (specimen) 04/22/2020 12:50 AM EDT 04/22/2020 12:57 AM EDT Narrative Resulting Agency Comment Spec In Lab Jana Trinh MD CHEMISTRY ORDERABLES [facility] [place] [address] * Magnesium (04/22/2020 12:50 AM EDT) Magnesium 0.86 0.69 - 1.07 mmol/L [facility] Blood specimen (specimen) 04/22/2020 12:50 AM EDT 04/22/2020 12:57 AM EDT Narrative Resulting Agency Comment Spec In Lab Jana Trinh MD CHEMISTRY ORDERABLES [facility] [place] [address] * (ABNORMAL) Basic Metabolic Panel (non-fasting) (04/22/2020 12:50 AM EDT) Glucose 189 65 - 199 mg/dL [facility] Comment:Diabetes: >=200 mg/d L plus symptoms Blood Urea Nitrogen 10 10 - 20 mg/dL [facility] Creatinine 0.54(L) 0.80 - 1.50 mg/dL [facility] Sodium 138 135 - 145 mmol/L [facility] Potassium 3.3(L) 3.5 - 5.0 mmol/L [facility] Comment: Please note: ??Patients with WBC >100,000 may have falsely elevated Potassium levels. ??For accurate Potassium quantification in these patients send serum separator tube (gold top) for subsequent determinations. ??Contact the Clinical Chemistry Laboratory if there are any questions. Chloride 103 98 - 107 mmol/L [facility] Carbon Dioxide 24 22 - 31 mmol/L [facility] Anion Gap 11 5 - 15 mmol/L [facility] Calcium 7.9(L) 8.5 - 10.5 mg/dL [facility] Est Glomerular Filtration Rate 113 >=60 mL/min/1. 73 m?? [facility] Comment: The eGFR was calculated using the CKD-EPI equation. As with all creatinine based estimates of kidney function, eGFR values calculated with the CKD-EPI equation are not accurate in patients with acute kidney failure, extremes of body mass or the acutely ill. http://[employer]/DHMCnkf eGFR 131 >=60 mL/min/1. 73 m?? [facility] Comment: The eGFR was calculated using the CKD-EPI equation. As with all creatinine based estimates of kidney function, eGFR values calculated with the CKD-EPI equation are not accurate in patients with acute kidney failure, extremes of body mass or the acutely ill. http://[employer]/DHMCnkf Blood specimen (specimen) 04/22/2020 12:50 AM EDT 04/22/2020 12:57 AM EDT Narrative Resulting Agency Comment Spec In Lab Jana Trinh MD CHEMISTRY ORDERABLES [facility] [place] [address] * MRI Brain wwo Contrast (Generic) (04/21/2020 2:19 PM EDT) Anatomical Region Laterality Modality Head Magnetic Resonan ce Impressions 04/21/2020 3:26 PM EDT Right basal ganglia parenchymal hemorrhage with intraventricular extension and ventricular enlargement. No evidence of underlying parenchymal enhancing mass. Thank you for letting us participate in the care of this patient. For questions regarding this report, please contact the number below. ? Electronically signed by: Obey Beauchamp MD, Radiology [place] ([phone]), at 04/21/2020 3:26 PM Narrative 04/21/2020 3:26 PM EDT EXAMINATION: MRI BRAIN WWO CONTRAST (GENERIC) CLINICAL HISTORY: Cerebral hemorrhage suspected New ICH/IVH. CTA grossly negative. R/O other etiology for spontaneous ICH TECHNIQUE: MRI of the brain was performed before and after the intravenous administration of 12cc Dotarem. COMPARISON: Head CT dated 04/21/2020 FINDINGS: There is evidence of parenchymal hemorrhage extending from the right caudate head/globus pallidus region with casting of the right lateral ventricle, dependent hemorrhage in the left lateral ventricle, and casting of the third and fourth ventricles. There is a evidence of ventriculomegaly which is similar to the most recent CT exam given differences in technique. There is downward transtentorial herniation with effacement of the suprasellar cistern. There is a ventricular drain arriving from the left with distal and projecting in the left lateral ventricle near the foramen of Aguilar. T2 hyperintensities are seen in the periventricular white matter, centrum semiovale and subcortical regions. There is evidence of subarachnoid blood with extensive increased signal intensity in the subarachnoid space on FLAIR sequence. There is T2 hyperintensity projecting in the radu bilaterally. Postcontrast exam demonstrates no evidence of mass or abnormal enhancement. Fluid signal projects in the right greater than left mastoid sinus and the frontal and lateral ethmoid air cells on the right. Procedure Note Obey Burger MD - 04/21/2020 EXAMINATION: MRI BRAIN WWO CONTRAST (GENERIC) CLINICAL HISTORY: Cerebral hemorrhage suspected New ICH/IVH. CTA grossly negative. R/O other etiology for spontaneousICH TECHNIQUE: MRI of the brain was performed before and after the intravenousadministration of 12cc Dotarem. COMPARISON: Head CT dated 04/21/2020 FINDINGS: There is evidence of parenchymal hemorrhage extending from the rightcaudate head/globus pallidus region with casting of the right lateral ventricle, dependent hemorrhage in the left lateral ventricle, and casting of thethird and fourth ventricles. There is a evidence of ventriculomegaly which is similar to the mostrecent CT exam given differences in technique. There is downward transtentorial herniation with effacement of thesuprasellar cistern. There is a ventricular drain arriving from the left with distal andprojecting in the left lateral ventricle near the foramen of Aguilar. T2 hyperintensities are seen in the periventricular white matter,centrum semiovale and subcortical regions. There is evidence of subarachnoid bloodwith extensive increased signal intensity in the subarachnoid space on FLAIR sequence. There is T2 hyperintensity projecting in the radu bilaterally. Postcontrast exam demonstrates no evidence of mass or abnormalenhancement. Fluid signal projects in the right greater than left mastoid sinus andthe frontal and lateral ethmoid air cells on the right. IMPRESSION Right basal ganglia parenchymal hemorrhage with intraventricular extensionand ventricular enlargement. No evidence of underlying parenchymal enhancingmass. Thank you for letting us participate in the care of this patient. Forquestions regarding this report, please contact the number below. Electronically signed by: Obey Beauchamp MD, [facility]([phone]), at 04/21/2020 3:26 PM Jana Trinh MD IM MRI ORDERABLES * CT Head wo Contrast (Generic) (04/21/2020 4:34 AM EDT) Anatomical Region Laterality Modality Head Computed Tomogra phy Impressions 04/21/2020 7:37 AM EDT No significant interval change appreciated. Preliminary report signed by: Yenny Ibarra at 04/21/2020 6:46 AM I have personally reviewed the image(s) and the resident's interpretation and agree with the findings, Chang Rincon at 04/21/2020 7:37 AM Thank you for letting us participate in the care of this patient. For questions regarding this report, please contact the number below. ? Narrative 04/21/2020 7:37 AM EDT EXAMINATION: CT HEAD WO CONTRAST (GENERIC) CLINICAL HISTORY: Subarachnoid hemorrhage, follow-up TECHNIQUE: CT head performed without intravenous contrast administration. COMPARISON: None FINDINGS: Similar position of left frontal approach ventriculostomy catheter, with tip near the foramen of Aguilar. Persistent hypoattenuation of the periventricular white matter consistent with transependymal edema. Ventricles appear similar in size/configuration. Persistent extensive hemorrhage within the RIGHT lateral ventricle, third ventricle and fourth ventricle, likely dissecting from caudate head hemorrhage. Slight redistribution of blood products with increased hemorrhage layering in the left occipital horn, and small amount in the body. Similar degree of leftward shift the septum pellucidum by approximately 4 mm. Procedure Note Chang Rincon MD - 04/21/2020 EXAMINATION: CT HEAD WO CONTRAST (GENERIC) CLINICAL HISTORY: Subarachnoid hemorrhage, follow-up TECHNIQUE: CT head performed without intravenous contrast administration. COMPARISON: None FINDINGS: Similar position of left frontal approach ventriculostomy catheter, withtip near the foramen of Aguilar. Persistent hypoattenuation of the periventricular white matter consistentwith transependymal edema. Ventricles appear similar in size/configuration. Persistent extensive hemorrhage within the RIGHT lateral ventricle,third ventricle and fourth ventricle, likely dissecting from caudate headhemorrhage. Slight redistribution of blood products with increased hemorrhage layeringin the left occipital horn, and small amount in the body. Similar degree of leftward shift the septum pellucidum by approximately 4mm. IMPRESSION No significant interval change appreciated. Preliminary report signed by: Yenny Ibarra at 04/21/2020 6:46 AM I have personally reviewed the image(s) and the resident's interpretationand agree with the findings, Chang Rincon at 04/21/2020 7:37 AM Thank you for letting us participate in the care of this patient. Forquestions regarding this report, please contact the number below. Jana Trinh MD [facility] [place]LES * Differential, Automated (04/21/2020 1:00 AM EDT) Neutrophil % 58.5 % [facility] Neutrophil Absolute 4.91 1.70 - 6.10 x10(3)/[facility] Lymph % 31.6 % [facility] Lymphocytes Abs 2.7 0.9 - 3.2 x10(3)/[facility] Monocyte % 9.4 % [facility] Monocyte Abs 0.8 0.3 - 0.9 x10(3)/[facility] Eos % 0.1 % [facility] Eosinophils Abs 0.0 0.0 - 0.4 x10(3)/[facility] Basophil % 0.2 % [facility] Baso Absolute 0.0 0.0 - 0.1 x10(3)/[facility] Immature Gran % 0.20 % [facility] Comment: Immature granulocytes(IG's)percentage and absolute count will include metamyelocytes, myelocytes, and promyelocytes. Blood smears from CBCs yielding IG's will be scanned manually for concordance. If this scan disagrees with the automated IG or if promyelocytes are noted, a manual differential will be performed. Immature Gran Absolute 0.02 0.00 - 0.04 x10(3)/[facility] Blood specimen (specimen) 04/21/2020 1:00 AM EDT 04/21/2020 1:12 AM EDT Narrative Resulting Agency Comment Spec In Lab Jacob PA HEMATOLOGY ORDERABLE S [facility] [place] [address] * (ABNORMAL) Hemogram (04/21/2020 1:00 AM EDT) White Blood Cell 8.4 4.0 - 9.5 x10(3)/mc L [facility] Red Blood Cell 4.07(L) 4.58 - 5.54 x10(6)/mc L [facility] Hemoglobin 14.0 13.7 - 16.5 gm/dL [facility] Hematocrit 39.9(L) 40.5 - 48.5 % [facility] Mean Cell Volume 98.0(H) 82.9 - 93.[address] [facility] Mean Cell Hemoglobin 34.4(H) 27.5 - 32.[address] [facility] Mean Cell Hemoglobin Concentration 35.1 32.0 - 35.7 gm/dL [facility] Platelet 147 145 - 357 x10(3)/mc L [facility] RDW Standard Deviation 45.7(H) 36.0 - 45.[address] [facility] RDW coefficient of variation 12.7 11.4 - 13.8 % [facility] Mean Platelet Volume 8.9 7.6 - 12.[address] [facility] NRBC% auto 0.0 % [facility] NRBC Absolute 0.000 0.000 - 0.000 x10(3)/mc L [facility] Blood specimen (specimen) 04/21/2020 1:00 AM EDT 04/21/2020 1:12 AM EDT Narrative Resulting Agency Comment Spec In Lab Jacob PA HEMATOLOGY ORDERABLE S [facility] [place] [address] * (ABNORMAL) BLOOD GAS 2 ARTERIAL (04/21/2020 1:00 AM EDT) pH, Arterial 7.34(L) 7.35 - 7.45 [facility] PCO2, Arterial 39 35 - [address] [facility] PO2, Arterial 226(H) 85 - [address] [facility] Bicarbonate, Arterial 20.5 20.0 - 26.0 mmol/L [facility] Base Excess, Arterial -5.3(L) -3.0 - 3.0 mmol/L [facility] Hgb Blood Gas 14.2 13.7 - 16.5 gm/dL [facility] Oxyhemoglobin, Arterial 98.2(H) 94.0 - 97.0 % [facility] Carboxyhemoglob in, Arterial 0.5 % [facility] Comment: Nonsmokers: 0.5-1.5% COHB Smokers: Variable, but usually less than 10% Toxic: 20-30% COHB Lethal: Greater than 60% COHB Methemoglobin, Arterial 0.5 <=1.5 % [facility] Na Whole Blood 136 135 - 145 mmol/L [facility] K Whole Blood 3.8 3.5 - 5.0 mmol/L [facility] Comment: Please note: Patients with WBC >100,000 may have falsely elevated Potassium levels. Contact the Clinical Chemistry Laboratory if there are any questions. ICa Whole Blood 1.14(L) 1.15 - 1.33 mmol/L [facility] Comment: Note: ??Total bilirubin higher than 20 mg/dL may lead to falsely low ionized calcium. CL Whole Blood 104 98 - 107 mmol/L [facility] Gluc Whole Bld 77 65 - 199 mg/dL [facility] Comment:Diabetes: >=200 mg/d L plus symptoms. Lactate WB 0.6 0.5 - 2.2 mmol/L [facility] FIO2 Art 50 % [facility] PF Ratio Art 452 [facility] Blood specimen (specimen) 04/21/2020 1:00 AM EDT 04/21/2020 1:00 AM EDT Jana Trinh MD POINT OF CARE TEST O RDERABLES Performing Organization Address City/[facility]/ZIP [place] [address] * (ABNORMAL) Iron and TIBC (04/21/2020 1:00 AM EDT) Iron 96 45 - 160 mcg/dL [facility] TIBC 201(L) 250 - 450 mcg/dL [facility] Iron Saturation 48 20 - 50 % [facility] Blood specimen (specimen) 04/21/2020 1:00 AM EDT 04/21/2020 1:12 AM EDT Narrative Resulting Agency Comment Spec In Lab Jana Trinh MD CHEMISTRY ORDERABLES [facility] [place] [address] * (ABNORMAL) Prothrombin Time (04/21/2020 1:00 AM EDT) Prothrombin Time 12.9(H) 9.4 - 12.[address] [facility] International Normalization Ratio 1.1 [facility] Comment: An INR <2.0 indicates adequate procoagulant activity for hemostasis in most patients without underlying bleeding disorders, though the INR may not adequately reflect hemostatic capacity in patients with liver disease and synthetic impairment. The recommended target INR range for therapeutic anticoagulation is 2.0 ? 3.0 for most applications, though lower and higher ranges may be appropriate depending on clinical circumstances. Blood specimen (specimen) 04/21/2020 1:00 AM EDT 04/21/2020 1:12 AM EDT Narrative Resulting Agency Comment Spec In Lab Jana Trinh MD HEMATOLOGY ORDERABLE S Performing Organization Address [facility]/ZIP Co de Phone Number [facility] [place] [address] * APTT (04/21/2020 1:00 AM EDT) Partial Thromboplastin Time 27 25 - [address] [facility] Comment: The PTT is NOT appropriate for heparin monitoring. Use the Anti-Xa level for heparin monitoring (HEP UFH) or LMWH monitoring (HEP LMW). A PTT less than 37 seconds generally indicates adequate hemostasis. Blood specimen (specimen) 04/21/2020 1:00 AM EDT 04/21/2020 1:12 AM EDT Narrative Resulting Agency Comment Spec In Lab Jana Trinh MD HEMATOLOGY ORDERABLE S Performing Organization Address City/[facility]/ZIP Co de Phone Number [facility] [place] [address] * (ABNORMAL) Hepatic Function Panel (04/21/2020 1:00 AM EDT) Protein, Total 6.6 6.1 - 8.0 gm/dL [facility] Albumin 3.5 3.2 - 5.2 gm/dL [facility] Aspartate Aminotransferase 102(H) 0 - 39 unit/L [facility] Alanine Aminotransferase 110(H) 0 - 55 unit/L [facility] Alkaline Phosphatase 62 40 - 130 unit/L [facility] Bilirubin, Total 0.5 0.2 - 1.3 mg/dL [facility] Bilirubin, Direct 0.2 0.0 - 0.3 mg/dL [facility] Blood specimen (specimen) 04/21/2020 1:00 AM EDT 04/21/2020 1:12 AM EDT Narrative Resulting Agency Comment Spec In Lab Jana Trinh MD CHEMISTRY ORDERABLES Performing Organization Address [facility]/ZIP Co de Phone Number [facility] [place] [address] * Phosphorus (04/21/2020 1:00 AM EDT) Phosphorus 3.9 2.5 - 4.5 mg/dL [facility] Blood specimen (specimen) 04/21/2020 1:00 AM EDT 04/21/2020 1:12 AM EDT Narrative Resulting Agency Comment Spec In Lab Jana Trinh MD CHEMISTRY ORDERABLES Performing Organization Address City/[facility]/ZIP Co de Phone Number [facility] [place] [id number] * Magnesium (04/21/2020 1:00 AM EDT) Magnesium 0.85 0.69 - 1.07 mmol/L [facility] Blood specimen (specimen) 04/21/2020 1:00 AM EDT 04/21/2020 1:12 AM EDT Narrative Resulting Agency Comment Spec In Lab Jana Trinh MD CHEMISTRY ORDERABLES Performing Organization Address City/[facility]/ZIP Co de Phone Number [facility] [place] [address] * (ABNORMAL) Basic Metabolic Panel (non-fasting) (04/21/2020 1:00 AM EDT) Glucose 89 65 - 199 mg/dL [facility] Comment:Diabetes: >=200 mg/d L plus symptoms Blood Urea Nitrogen 9(L) 10 - 20 mg/dL [facility] Creatinine 0.54(L) 0.80 - 1.50 mg/dL [facility] Sodium 141 135 - 145 mmol/L [facility] Potassium 4.1 3.5 - 5.0 mmol/L [facility] Comment: Please note: ??Patients with WBC >100,000 may have falsely elevated Potassium levels. ??For accurate Potassium quantification in these patients send serum separator tube (gold top) for subsequent determinations. ??Contact the Clinical Chemistry Laboratory if there are any questions. Chloride 105 98 - 107 mmol/L [facility] Carbon Dioxide 22 22 - 31 mmol/L [facility] Anion Gap 14 5 - 15 mmol/L [facility] Calcium 8.1(L) 8.5 - 10.5 mg/dL [facility] Est Glomerular Filtration Rate 113 >=60 mL/min/1. 73 m?? [facility] Comment: The eGFR was calculated using the CKD-EPI equation. As with all creatinine based estimates of kidney function, eGFR values calculated with the CKD-EPI equation are not accurate in patients with acute kidney failure, extremes of body mass or the acutely ill. http://[facility] eGFR 131 >=60 mL/min/1. 73 m?? [facility] Comment: The eGFR was calculated using the CKD-EPI equation. As with all creatinine based estimates of kidney function, eGFR values calculated with the CKD-EPI equation are not accurate in patients with acute kidney failure, extremes of body mass or the acutely ill. http://[facility] Blood specimen (specimen) 04/21/2020 1:00 AM EDT 04/21/2020 1:12 AM EDT Narrative Resulting Agency Comment Spec In Lab Jana Trinh MD CHEMISTRY ORDERABLES [facility] [place] [address] * XR Chest One View (04/20/2020 11:25 PM EDT) Anatomical Region Laterality Modality Chest N/A Digital Radiogra phy Impressions 04/21/2020 3:14 AM EDT Endotracheal tube terminates 6.9 cm above the liya. Preliminary report signed by: Yenny Ibarra at 04/21/2020 12:04 AM I have personally reviewed the image(s) and the resident's interpretation and agree with the findings, Chang Rincon at 04/21/2020 3:14 AM Thank you for letting us participate in the care of this patient. For questions regarding this report, please contact the number below. ? Narrative 04/21/2020 3:14 AM EDT EXAMINATION: XR CHEST ONE VIEW CLINICAL HISTORY: confirm ETT placement after re-positioning. TECHNIQUE: 1 view of the chest COMPARISON: Most recent chest radiograph 04/20/2020 at 2022. FINDINGS: Endotracheal tube tip terminates 6.9 cm cm above the liya. Left-sided PICC catheter tip terminates over the mid SVC. Enteric tube projects over the course of the esophagus with side port and tip projecting over the stomach. No confluent areas is opacity, or obvious pleural effusion, or large pneumothorax appreciated on this semirecumbent image. Cardiomediastinal contours appear within normal limits and without significant change appreciated. Procedure Note Chang Rincon MD - 04/21/2020 EXAMINATION: XR CHEST ONE VIEW CLINICAL HISTORY: confirm ETT placement after re-positioning. TECHNIQUE: 1 view of the chest COMPARISON: Most recent chest radiograph 04/20/2020 at 2022. FINDINGS: Endotracheal tube tip terminates 6.9 cm cm above the liya. Left-sidedPICC catheter tip terminates over the mid SVC. Enteric tube projects over thecourse of the esophagus with side port and tip projecting over the stomach. No confluent areas is opacity, or obvious pleural effusion, or large pneumothorax appreciated on this semirecumbent image. Cardiomediastinalcontours appear within normal limits and without significant change appreciated. IMPRESSION Endotracheal tube terminates 6.9 cm above the liya. Preliminary report signed by: Yenny Ibarra at 04/21/2020 12:04 AM I have personally reviewed the image(s) and the resident's interpretationand agree with the findings, Chang Rnicon at 04/21/2020 3:14 AM Thank you for letting us participate in the care of this patient. Forquestions regarding this report, please contact the number below. Jana Trinh MD IMG DX ORDERABLES * POCT Glucose (04/20/2020 10:46 PM EDT) Glucose, POC 87 65 - 199 mg/dL [facility] Comment: Supplemental ranges: <140 mg/dL before meals <180 mg/dL all other times of the day Blood specimen (specimen) 04/20/2020 10:46 PM EDT 04/20/2020 10:46 PM EDT Jana Trinh MD POINT OF CARE TEST O RDERABLES [facility] [place] [address] * CT Head wo Contrast (Generic) (04/20/2020 10:12 PM EDT) Anatomical Region Laterality Modality Head Computed Tomogra phy Impressions 04/21/2020 7:31 AM EDT 1. ??New left frontal approach ventriculostomy terminating near the foramen of Aguilar, with mildly decreased LEFT ventricular caliber. 2. ??Right caudate head hemorrhage with extensive intraventricular extension redemonstrated, with mildly decreased midline shift. Preliminary report signed by: Yenny Ibarra at 04/21/2020 7:25 AM I have personally reviewed the image(s) and the resident's interpretation and agree with the findings, Chang Rincon at 04/21/2020 7:31 AM Thank you for letting us participate in the care of this patient. For questions regarding this report, please contact the number below. ? Narrative 04/21/2020 7:31 AM EDT EXAMINATION: CT HEAD WO CONTRAST (GENERIC) CLINICAL HISTORY: Intracranial hemorrhage, follow up TECHNIQUE: CT head performed without intravenous contrast administration. COMPARISON: CT head 04/20/2020. FINDINGS: New left frontal approach ventriculostomy catheter with tip terminating just the left of midline in the body of the left lateral ventricle near the foramen of Monro. Mildly decreased LEFT ventricular caliber. Persistent increased hypoattenuation of the periventricular white matter consistent with transependymal edema. Similar distribution of right caudate head hemorrhage with intraventricular extension casting the near entirety of the RIGHT lateral ventricle, third ventricle, cerebral aqueduct, fourth ventricle, and fourth ventricular lateral apertures and small amount of LEFT lateral ventricle. Expanded right lateral ventricle with deviation of the intraventricular septum to the left proximally 4 mm, decreased from the comparison at which time it measured 6 mm. There is trace nondependent pneumocephalus overlying the LEFT frontal convexity anteriorly. Partial opacification of the RIGHT frontal sinus and ethmoid air cells. Secretions pooled in the posterior nasopharynx. Partially imaged enteric and endotracheal tubes. Included mastoid air cells appear well-aerated. Multiple dental caries again noted. Procedure Note Chang Rincon MD - 04/21/2020 EXAMINATION: CT HEAD WO CONTRAST (GENERIC) CLINICAL HISTORY: Intracranial hemorrhage, follow up TECHNIQUE: CT head performed without intravenous contrast administration. COMPARISON: CT head 04/20/2020. FINDINGS: New left frontal approach ventriculostomy catheter with tip terminatingjust the left of midline in the body of the left lateral ventricle near the foramenof Monro. Mildly decreased LEFT ventricular caliber. Persistent increased hypoattenuation of the periventricular white matter consistent with transependymal edema. Similar distribution of right caudate head hemorrhage withintraventricular extension casting the near entirety of the RIGHT lateral ventricle,third ventricle, cerebral aqueduct, fourth ventricle, and fourth ventricularlateral apertures and small amount of LEFT lateral ventricle. Expanded right lateral ventricle with deviation of the intraventricularseptum to the left proximally 4 mm, decreased from the comparison at which timeit measured 6 mm. There is trace nondependent pneumocephalus overlying the LEFT frontalconvexity anteriorly. Partial opacification of the RIGHT frontal sinus and ethmoid air cells. Secretions pooled in the posterior nasopharynx. Partially imaged entericand endotracheal tubes. Included mastoid air cells appear well-aerated. Multiple dental caries again noted. IMPRESSION 1. New left frontal approach ventriculostomy terminating near the foramenof Aguilar, with mildly decreased LEFT ventricular caliber. 2. Right caudate head hemorrhage with extensive intraventricularextension redemonstrated, with mildly decreased midline shift. Preliminary report signed by: Yenny Ibarra at 04/21/2020 7:25 AM I have personally reviewed the image(s) and the resident's interpretationand agree with the findings, Chang Rincon at 04/21/2020 7:31 AM Thank you for letting us participate in the care of this patient. Forquestions regarding this report, please contact the number below. Raul Krishnan MD IMG CT ORDERABLES * XR Chest One View (04/20/2020 8:28 PM EDT) Anatomical Region Laterality Modality Chest N/A Digital Radiogra phy Impressions 04/20/2020 8:54 PM EDT 1. ??Left central line with tip projecting at the expected location of the SVC. No apical left pneumothorax, evaluation for anterior inferior pneumothorax is limited since the lower left hemithorax is excluded from the imaged [id number]. It should be noted, that the patient was not imaged in a completely upright position. I have personally reviewed the image(s) and the resident's interpretation and agree with the findings, Stormy Gardiner at 04/20/2020 8:54 PM Thank you for letting us participate in the care of this patient. For questions regarding this report, please contact the number below. ? Electronically signed by: Stormy Gardiner [facility] ([phone]), at 04/20/2020 8:54 PM Narrative 04/20/2020 8:54 PM EDT EXAMINATION: XR CHEST ONE VIEW CLINICAL HISTORY: central line placement (as entered by ordering provider in the order requisition) TECHNIQUE: Portable AP view of the chest is suboptimal with exclusion of the left lower heart border and of the left lower chest and costophrenic angle from the imaged anatomy. COMPARISON: Chest radiograph dated 04/20/2020 at 1804 hours FINDINGS: Interval placement of left subclavian with tip projecting at the expected location of mid SVC. Evaluation for pneumothorax is somewhat limited since the entire left chest cavity is not occluded in the imaged anatomy. No definite apical pneumothorax, but an inferior anterior pneumothorax cannot be excluded, especially given that the patient was not completely upright for this study. ET tube is unchanged in position. Enteric tube courses below the inferior margin of the study. No right pleural effusion. No right dense consolidation. Incomplete evaluation of the cardiomediastinal silhouette due to exclusion of the left lateral and inferior border of the heart. Old right posterior rib fractures and cervical spinal fusion hardware are again noted. Procedure Note Stormy Gardiner MD - 04/20/2020 EXAMINATION: XR CHEST ONE VIEW CLINICAL HISTORY: central line placement (as entered by ordering providerin the order requisition) TECHNIQUE: Portable AP view of the chest is suboptimal with exclusion of the leftlower heart border and of the left lower chest and costophrenic angle from theimaged anatomy. COMPARISON: Chest radiograph dated 04/20/2020 at 1804 hours FINDINGS: Interval placement of left subclavian with tip projecting at theexpected location of mid SVC. Evaluation for pneumothorax is somewhat limited sincethe entire left chest cavity is not occluded in the imaged anatomy. Nodefinite apical pneumothorax, but an inferior anterior pneumothorax cannot beexcluded, especially given that the patient was not completely upright for thisstudy. ET tube is unchanged in position. Enteric tube courses below the inferiormargin of the study. No right pleural effusion. No right dense consolidation. Incompleteevaluation of the cardiomediastinal silhouette due to exclusion of the left [place] inferior border of the heart. Old right posterior rib fractures andcervical spinal fusion hardware are again noted. IMPRESSION 1. Left central line with tip projecting at the expected location of theSVC. No apical left pneumothorax, evaluation for anterior inferior pneumothoraxis limited since the lower left hemithorax is excluded from the imaged [id number]. It should be noted, that the patient was not imaged in a completely upright position. I have personally reviewed the image(s) and the resident's interpretationand agree with the findings, Stormy Gardiner at 04/20/2020 8:54 PM Thank you for letting us participate in the care of this patient. Forquestions regarding this report, please contact the number below. Electronically signed by: Stormy Gardiner [facility]([phone]), at 04/20/2020 8:54 PM Raul Krishnan MD [facility]LES * Troponin (04/20/2020 6:20 PM EDT) [facility] Troponin-T <0.01 0.00 - 0.00 ng/mL [facility] Comment: The 99th percentile for Troponin T is less than 0.01 ng/mL, any detectable cTnT concentration using this assay should be considered elevated. According to the third universal definition of myocardial infarction the following criteria with a clinical presentation consistent with acute myocardial ischemia meets the diagnosis for a myocardial infarction ([place]). Detection of a rise and/or fall of cTnT, with at least one value greater than the 99th percentile (> or = 0.01) and with at least one of the following ?? Symptoms of ischemia ?? New or presumed new significant AG-ceyaese-B wave (ST-T) changes or new left bundle branch block (LBBB) ?? Development of pathologic Q waves in the ECG ?? Imaging evidence of new loss of viable myocardium or new regional wall motion abnormality ?? Identification of an intracoronary thrombus by angiography or autopsy Samples for cTnT testing should be obtained serially upon first assessment and again 3 to 6 hours later. If the clinical suspicion is high and previous samples have been negative an additional sample may be indicated. Reference: Third [place] Definition of Myocardial Infarction. Journal of the [employer] College [employer] 2012;60:1581-98 Blood specimen (specimen) Venous Draw / Unknown 04/20/2020 6:20 PM EDT 04/20/2020 8:10 PM EDT Narrative Resulting Agency Comment Spec In Lab Jacob PA CHEMISTRY ORDERABLES [facility] [place] [address] * ABORH Recheck Status (04/20/2020 6:20 PM EDT) [facility] ABORH Type Recheck Completed [facility] Blood specimen (specimen) 04/20/2020 6:20 PM EDT 04/20/2020 6:59 PM EDT Narrative Resulting Agency Comment Spec In Lab Obey Moreno MD BLOOD BANK LAB ORDER PETER [facility] [place] [address] * Lee Tube Hold (04/20/2020 6:20 PM EDT) Lee Hold Sample in lab. [facility] Blood specimen (specimen) Venous Draw / Unknown 04/20/2020 6:20 PM EDT 04/20/2020 6:47 PM EDT Obey Moreno MD CHEMISTRY ORDERABLES Performing Organization Address City/[facility]/ZIP Co de Phone Number [facility] [place] [address] * Gold Tube HOLD (04/20/2020 6:20 PM EDT) [facility] Signature Gold Hold Sample in lab. [facility] Blood specimen (specimen) Venous Draw / Unknown 04/20/2020 6:20 PM EDT 04/20/2020 6:47 PM EDT Obey Moreno MD CHEMISTRY ORDERABLES Performing Organization Address City/[facility]/ZIP Co de Phone Number [facility] [place] [place] [address] * (ABNORMAL) Differential, Automated (04/20/2020 6:20 PM EDT) Neutrophil % 75.8 % [facility] Neutrophil Absolute 4.01 1.70 - 6.10 x10(3)/mc L [facility] Lymph % 18.9 % [facility] Lymphocytes Abs 1.0 0.9 - 3.2 x10(3)/mc L [facility] Monocyte % 4.7 % [facility] Monocyte Abs 0.2(L) 0.3 - 0.9 x10(3)/mc L [facility] Eos % 0.0 % [facility] Eosinophils Abs 0.0 0.0 - 0.4 x10(3)/[facility] Basophil % 0.2 % [facility] Baso Absolute 0.0 0.0 - 0.1 x10(3)/[facility] Immature Gran % 0.40 % [facility] Comment: Immature granulocytes(IG's)percentage and absolute count will include metamyelocytes, myelocytes, and promyelocytes. Blood smears from CBCs yielding IG's will be scanned manually for concordance. If this scan disagrees with the automated IG or if promyelocytes are noted, a manual differential will be performed. Immature Gran Absolute 0.02 0.00 - 0.04 x10(3)/[facility] Blood specimen (specimen) 04/20/2020 6:20 PM EDT 04/20/2020 6:46 PM EDT Narrative Resulting Agency Comment Spec In Lab Obey Moreno MD HEMATOLOGY ORDERABLE S Performing Organization Address City/State/[facility] Co de Phone Number [facility] [place] [address] * (ABNORMAL) Hemogram (04/20/2020 6:20 PM EDT) White Blood Cell 5.3 4.0 - 9.5 x10(3)/[facility] Red Blood Cell 3.70(L) 4.58 - 5.54 x10(6)/[facility] Hemoglobin 12.5(L) 13.7 - 16.5 gm/dL [facility] Hematocrit 36.5(L) 40.5 - 48.5 % [facility] Mean Cell Volume 98.6(H) 82.9 - 93.[address] [facility] Mean Cell Hemoglobin 33.8(H) 27.5 - 32.[address] [facility] Mean Cell Hemoglobin Concentration 34.2 32.0 - 35.7 gm/dL [facility] Platelet 133(L) 145 - 357 x10(3)/[facility] RDW Standard Deviation 45.1(H) 36.0 - 45.[address] [facility] RDW coefficient of variation 12.5 11.4 - 13.8 % [facility] Mean Platelet Volume 9.2 7.6 - 12.9 [facility] NRBC% auto 0.0 % [facility] NRBC Absolute 0.000 0.000 - 0.000 x10(3)/mc L [facility] Blood specimen (specimen) 04/20/2020 6:20 PM EDT 04/20/2020 6:46 PM EDT Narrative Resulting Agency Comment Spec In Lab Obey Moreno MD HEMATOLOGY ORDERABLE S [facility] [place] [address] * Antibody screen (04/20/2020 6:20 PM EDT) Ab Screen Interp Negative [facility] Expires at [id number] on: 04/23/2020 [facility] Blood specimen (specimen) 04/20/2020 6:20 PM EDT 04/20/2020 6:59 PM EDT Narrative Resulting Agency Comment Spec In Lab Obey Moreno MD BLOOD BANK LAB ORDER PETER [facility] [place] [address] * ABO/Rh Typing (04/20/2020 6:20 PM EDT) ABORH Type AB Pos [facility] Blood specimen (specimen) 04/20/2020 6:20 PM EDT 04/20/2020 6:59 PM EDT Narrative Resulting Agency Comment Spec In Lab Obey Moreno MD BLOOD BANK LAB ORDER PETER [facility] [place] [address] * (ABNORMAL) Hepatic Function Panel (04/20/2020 6:20 PM EDT) Pathologist [facility] Protein, Total 5.8(L) 6.1 - 8.0 gm/dL [facility] Albumin 3.3 3.2 - 5.2 gm/dL [facility] Aspartate Aminotransferase 107(H) 0 - 39 unit/L [facility] Alanine Aminotransferase 105(H) 0 - 55 unit/L [facility] Alkaline Phosphatase 53 40 - 130 unit/L [facility] Bilirubin, Total 0.7 0.2 - 1.3 mg/dL [facility] Bilirubin, Direct 0.3 0.0 - 0.3 mg/dL [facility] Blood specimen (specimen) 04/20/2020 6:20 PM EDT 04/20/2020 6:46 PM EDT Narrative Resulting Agency Comment Spec In Lab Raul Krishnan MD CHEMISTRY ORDERABLES Performing Organization Address [facility]/ZIP Co de Phone Number [facility] [place] [address] * APTT (04/20/2020 6:20 PM EDT) [facility] Partial Thromboplastin Time 28 25 - [address] [facility] Comment: The PTT is NOT appropriate for heparin monitoring. Use the Anti-Xa level for heparin monitoring (HEP UFH) or LMWH monitoring (HEP LMW). A PTT less than 37 seconds generally indicates adequate hemostasis. Blood specimen (specimen) 04/20/2020 6:20 PM EDT 04/20/2020 6:46 PM EDT Narrative Resulting Agency Comment Spec In Lab Raul Krishnan MD HEMATOLOGY ORDERABLE S Performing Organization Address City/[facility]/ZIP Co de Phone Number [facility] [place] [address] * (ABNORMAL) Prothrombin Time (04/20/2020 6:20 PM EDT) Prothrombin Time 14.3(H) 9.4 - 12.[address] [facility] International Normalization Ratio 1.2 [facility] Comment: An INR <2.0 indicates adequate procoagulant activity for hemostasis in most patients without underlying bleeding disorders, though the INR may not adequately reflect hemostatic capacity in patients with liver disease and synthetic impairment. The recommended target INR range for therapeutic anticoagulation is 2.0 ? 3.0 for most applications, though lower and higher ranges may be appropriate depending on clinical circumstances. Blood specimen (specimen) 04/20/2020 6:20 PM EDT 04/20/2020 6:46 PM EDT Narrative Resulting Agency Comment Spec In Lab Raul Krishnan MD HEMATOLOGY ORDERABLE S Performing Organization Address [facility] Co de Phone Number [facility] [place] [address] * Phosphorus (04/20/2020 6:20 PM EDT) Phosphorus 3.3 2.5 - 4.5 mg/dL [facility] Blood specimen (specimen) 04/20/2020 6:20 PM EDT 04/20/2020 6:46 PM EDT Narrative Resulting Agency Comment Spec In Lab Raul Krishnan MD CHEMISTRY ORDERABLES Performing Organization Address [facility] Co de Phone Number [facility] [place] [address] * Magnesium (04/20/2020 6:20 PM EDT) Magnesium 0.77 0.69 - 1.07 mmol/L [facility] Blood specimen (specimen) 04/20/2020 6:20 PM EDT 04/20/2020 6:46 PM EDT Narrative Resulting Agency Comment Spec In Lab Raul Krishnan MD CHEMISTRY ORDERABLES Performing Organization Address [facility] Co de Phone Number [facility] [place] [address] * (ABNORMAL) Basic Metabolic Panel (non-fasting) (04/20/2020 6:20 PM EDT) Glucose 92 65 - 199 mg/dL [facility] Comment:Diabetes: >=200 mg/d L plus symptoms Blood Urea Nitrogen 10 10 - 20 mg/dL [facility] Creatinine 0.51(L) 0.80 - 1.50 mg/dL [facility] Sodium 138 135 - 145 mmol/L [facility] Potassium 4.1 3.5 - 5.0 mmol/L [facility] Comment: Please note: ??Patients with WBC >100,000 may have falsely elevated Potassium levels. ??For accurate Potassium quantification in these patients send serum separator tube (gold top) for subsequent determinations. ??Contact the Clinical Chemistry Laboratory if there are any questions. Chloride 104 98 - 107 mmol/L [facility] Carbon Dioxide 21(L) 22 - 31 mmol/L [facility] Anion Gap 13 5 - 15 mmol/L [facility] Calcium 7.4(L) 8.5 - 10.5 mg/dL [facility] Est Glomerular Filtration Rate 116 >=60 mL/min/1. 73 m?? [facility] Comment: The eGFR was calculated using the CKD-EPI equation. As with all creatinine based estimates of kidney function, eGFR values calculated with the CKD-EPI equation are not accurate in patients with acute kidney failure, extremes of body mass or the acutely ill. [email or web address] eGFR 134 >=60 mL/min/1. 73 m?? [facility] Comment: The eGFR was calculated using the CKD-EPI equation. As with all creatinine based estimates of kidney function, eGFR values calculated with the CKD-EPI equation are not accurate in patients with acute kidney failure, extremes of body mass or the acutely ill. [email or web address] Blood specimen (specimen) 04/20/2020 6:20 PM EDT 04/20/2020 6:46 PM EDT Narrative Resulting Agency Comment Spec In Lab Raul Krishnan MD CHEMISTRY ORDERABLES [facility] [place] [address] * (ABNORMAL) Rapid Drug Screen w/o Confirmation, Urine (04/20/2020 6:10 PM EDT) Barbiturates Screen, Urine None Detected None Detected [facility] Comment: The barbiturate screen detects barbiturates at concentrations >200 ng/mL. Note: Not all barbiturates cross-react equally with antibody used in this screen. A ? Presumptive Positive? result indicates that the screening result was positive but has not yet been confirmed by a highly-specific method. As with any screen, occasional false positive results from cross-reacting substances may occur. Not for Medico-Legal Purposes. Benzodiazepines Screen, Urine Presumptive Pos(A) None Detected [facility] Comment: The benzodiazepines screen detects benzodiazepines at concentrations >100 ng/mL. Not all benzodiazepines cross-react equally with antibody used in this screen. Due to the low dosage of clonazepam, false negatives may be obtained due to low concentration of clonazepam metabolites. A ? Presumptive Positive? result indicates that the screening result was positive but has not yet been confirmed by a highly-specific method. As with any screen, occasional false positive results from cross-reacting substances may occur. Not for Medico-Legal Purposes. Cocaine Screen, Urine None Detected None Detected [facility] Comment: The cocaine metabolites screen detects benzoylecgonine (Cocaine Metabolite) at concentrations >150 ng/mL. A ? Presumptive Positive? result indicates that the screening result was positive but has not yet been confirmed by a highly-specific method. As with any screen, occasional false positive results from cross-reacting substances may occur. Not for Medico-Legal Purposes. Methadone Metabolites Screen, Urine None Detected None Detected [facility] Comment: The methadone metabolite screen detects EDDP (major methadone metabolite) at concentrations >100 ng/mL. A ? Presumptive Positive? result indicates that the screening result was positive but has not yet been confirmed by a highly-specific method. As with any screen, occasional false positive results from cross-reacting substances may occur. Not for Medico-Legal Purposes. Opiate Screen, Urine None Detected None Detected [facility] Comment: The opiates screen detects opiates at concentrations >300 ng/mL. Please note that oxycodone, oxymorphone, fentanyl, tramadol, and other synthetic opioids are not detected by the opiate screen. A ? Presumptive Positive? result indicates that the screening result was positive but has not yet been confirmed by a highly-specific method. As with any screen, occasional false positive results from cross-reacting substances may occur. Not for Medico-Legal Purposes. Cannabinoid Screen, Urine Presumptive Pos(A) None Detected [facility] Comment: The marijuana metabolites screen detects the THC metabolite (55-rwl-1-carboxy-delta 9-THC) at concentrations >20 ng/mL. A ? Presumptive Positive? result indicates that the screening result was positive but has not yet been confirmed by a highly-specific method. As with any screen, occasional false positive results from cross-reacting substances may occur. Not for Medico-Legal Purposes. Oxycodone Screen, Urine Presumptive Pos(A) None Detected [facility] Comment: The oxycodone screen detects oxycodone and oxymorphone at concentrations >100 ng/mL. A ? Presumptive Positive? result indicates that the screening result was positive but has not yet been confirmed by a highly-specific method. As with any screen, occasional false positive results from cross-reacting substances may occur. Not for Medico-Legal Purposes. Buprenorphine Screen, Urine None Detected None Detected [facility] Comment: The buprenorphine screen detects buprenorphine at concentrations >5 ng/mL. A ? Presumptive Positive? result indicates that the screening result was positive but has not yet been confirmed by a highly-specific method. As with any screen, occasional false positive results from cross-reacting substances may occur. Not for Medico-Legal Purposes. Fentanyl Screen, Urine Presumptive Pos(A) None Detected [facility] Comment: The fentanyl screen detects fentanyl at concentrations >2 ng/mL. A ? Presumptive Positive? result indicates that the screening result was positive but has not yet been confirmed by a highly-specific method. As with any screen, occasional false positive results from cross-reacting substances may occur. Not for Medico-Legal Purposes. Tricyclics Screen, Urine None Detected None Detected [facility] Comment: The tricyclics screen detects tricyclic antidepressants at concentrations >150 ng/mL. Not all tricyclics cross-react equally with the antibody used in this screen. A ? Presumptive Positive? result indicates that the screening result was positive but has not yet been confirmed by a highly-specific method. As with any screen, occasional false positive results from cross-reacting substances may occur. Not for Medico-Legal Purposes. Ethanol Screen, Urine None Detected None Detected [facility] Comment:This urine ethanol a ssay detects ethanol at concentrations >/= 100 mg/L. Amphetamines Screen, Urine None Detected None Detected [facility] Comment: The amphetamine screen detects d-amphetamine and d-methamphetamine at concentrations >300 ng/mL. A ? Presumptive Positive? result indicates that the screening result was positive but has not yet been confirmed by a highly-specific method. As with any screen, occasional false positive results from cross-reacting substances may occur. Not for Medico-Legal Purposes. Adulterants Screen, Urine None Detected None Detected [facility] Comment: No adulteration or dilution of this urine sample was detected. All urine samples submitted for urine drugs of abuse analysis are tested for creatinine concentration, pH, and for the presence of oxidants, nitrites, and chromate. Urine specimen (specimen) 04/20/2020 6:10 PM EDT 04/20/2020 6:44 PM EDT Narrative Resulting Agency Comment Spec In Lab Kike Paz MD CHEMISTRY ORDERABLES [facility] [place] [address] * Rapid Drug Screen, Urine (TIM Request) (04/20/2020 6:10 PM EDT) TIM Conf Requested No [facility] TIM Requested See Comment [facility] Comment:Refer to Rapid Drug Screen w/o Confirmation, Urine for results. Urine specimen (specimen) 04/20/2020 6:10 PM EDT 04/20/2020 6:44 PM EDT Narrative Resulting Agency Comment Spec In Lab Raul Krishnan MD URINE ORDERABLES [facility] [place] [address] * XR Chest One View (04/20/2020 6:09 PM EDT) Anatomical Region Laterality Modality Chest N/A Digital Radiogra phy Impressions 04/20/2020 6:12 PM EDT 1. ??An endotracheal tube remains in place with its tip approximately 6.5 cm above the liya. 2. ??No dense or confluent consolidation. Thank you for letting us participate in the care of this patient. For questions regarding this report, please contact the number below. ? Electronically signed by: Stormy Gardiner [facility] ([phone]), at 04/20/2020 6:12 PM Narrative 04/20/2020 6:12 PM EDT EXAMINATION: XR CHEST ONE VIEW CLINICAL HISTORY: Intubated, CXR for confirmation of tube depth after transportation. (as entered by ordering provider in the order requisition) TECHNIQUE: Portable AP view of the chest COMPARISON: Chest radiograph 04/20/2020. FINDINGS: There is an endotracheal tube with its tip projecting 6.5 cm above the liya. There are postoperative changes of spinal fusion of the lower cervical spine. The bilateral costophrenic angles are excluded from the imaged [id number], limiting evaluation of small pleural effusions. No large pleural collections. No pneumothorax. No dense consolidation. There are low lung volumes. Unchanged cardiac mediastinal hilar silhouettes. Old right rib fracture is noted.. Procedure Note Stormy Gardiner MD - 04/20/2020 EXAMINATION: XR CHEST ONE VIEW CLINICAL HISTORY: Intubated, CXR for confirmation of tube depth after transportation. (as entered by ordering provider in the orderrequisition) TECHNIQUE: Portable AP view of the chest COMPARISON: Chest radiograph 04/20/2020. FINDINGS: There is an endotracheal tube with its tip projecting 6.5 cm above thecarina. There are postoperative changes of spinal fusion of the lower cervicalspine. The bilateral costophrenic angles are excluded from the [id number], limiting evaluation of small pleural effusions. No large pleuralcollections. No pneumothorax. No dense consolidation. There are low lung volumes.Unchanged cardiac mediastinal hilar silhouettes. Old right rib fracture is noted.. IMPRESSION 1. An endotracheal tube remains in place with its tip approximately 6.5cm above the liya. 2. No dense or confluent consolidation. Thank you for letting us participate in the care of this patient. Forquestions regarding this report, please contact the number below. Electronically signed by: Stormy Gardiner [facility]([phone]), at 04/20/2020 6:12 PM Raul Krishnan MD IMG DX ORDERABLES * (ABNORMAL) BLOOD GAS 2 VENOUS (04/20/2020 6:09 PM EDT) pH, Venous 7.29(Criti ju) 7.32 - 7.42 [facility] PCO2, Venous 47 41 - [address] [facility] PO2, Venous 129(H) 25 - [address] [facility] Bicarbonate, Venous 22.1 mmol/L [facility] Base Excess, Venous -4.5 mmol/L [facility] Hgb Blood Gas 13.4(L) 13.7 - 16.5 gm/dL [facility] Oxyhemoglobin, Venous 96.6 % [facility] Carboxyhemoglob in, Venous 1.0 % [facility] Comment: Nonsmokers: 0.5-1.5% COHB Smokers: Variable, but usually less than 10% Toxic: 20-30% COHB Lethal: Greater than 60% COHB Methemoglobin, Venous 0.3 <=1.5 % [facility] Na Whole Blood 134(L) 135 - 145 mmol/L [facility] K Whole Blood 4.0 3.5 - 5.0 mmol/L [facility] Comment: Please note: Patients with WBC >100,000 may have falsely elevated Potassium levels. Contact the Clinical Chemistry Laboratory if there are any questions. ICa Whole Blood 1.10(L) 1.15 - 1.33 mmol/L [facility] Comment: Note: ??Total bilirubin higher than 20 mg/dL may lead to falsely low ionized calcium. CL Whole Blood 107 98 - 107 mmol/L [facility] Gluc Whole Bld 86 65 - 199 mg/dL [facility] Comment:Diabetes: >=200 mg/d L plus symptoms Lactate WB 1.2 0.5 - 2.2 mmol/L [facility] Blood Gas Source Venous [facility] Blood specimen (specimen) 04/20/2020 6:09 PM EDT 04/20/2020 6:09 PM EDT Raul Krishnan MD POINT OF CARE TEST O RDERABLES Performing Organization Address City/[facility]/ZIP Co de Phone Number [facility] [place] [address] * (ABNORMAL) Urinalysis Microscopic Exam (04/20/2020 6:08 PM EDT) RBC, Urine 48(H) 0 - 3 /HPF [facility] WBC, Urine 1 0 - 3 /HPF [facility] Squamous Epithelial Cells Raw Data, Urine 1 <=4 /HPF [facility] Urine specimen obtained via indwelling urinary catheter (specimen) 04/20/2020 6:08 PM EDT 04/20/2020 6:44 PM EDT Narrative Resulting Agency Comment Spec In Lab Kike Paz MD URINE ORDERABLES [facility] [place] [address] * (ABNORMAL) Urinalysis with reflex Culture (04/20/2020 6:08 PM EDT) [facility] Glucose, Urine Dipstick Negative Negative mg/dL [facility] Protein, Urine Dipstick Negative Negative mg/dL [facility] Bilirubin, Urine Dipstick Negative Negative mg/dL [facility] Comment: Clinical correlation required for positive Urine Bilirubin results as false positive may occur with some drugs and drug related products. If a false positive is suspected a serum total bilirubin should be considered if clinically indicated. Urobilinogen, Urine Dipstick Normal Normal mg/dL [facility] pH, Urn (dipstick) 5.5 5.0 - 8.0 [facility] Blood, Urine Dipstick Large(A) Negative mg/dL [facility] Ketone, Urine Dipstick 40(A) Negative mg/dL [facility] Nitrite, Urine Dipstick Negative Negative [facility] Leukocytes, Urine Dipstick Negative Negative [facility] Appearance, Urine Dipstick Clear Clear [facility] Specific [place] Urine Automated >=1.030(A) 1.006 - 1.030 [facility] Color, Urine Dipstick Yellow Yellow [facility] Reflex to Culture No [facility] Urine specimen obtained via indwelling urinary catheter (specimen) 04/20/2020 6:08 PM EDT 04/20/2020 6:44 PM EDT Narrative Resulting Agency Comment Spec In Lab Raul Krishnan MD URINE ORDERABLES [facility] [place] [address] * COVID-19 PCR (04/20/2020 6:08 PM EDT) [facility] SARS-CoV-2 RNA (Rapid) Not Detected Not Detected [facility] Comment: This result should be interpreted in combination with the clinical observations, patient history and epidemiological information. For testing of asymptomatic individuals, assay performance characteristics and clinical utility have not been evaluated. Testing for SARS-CoV-2 (Severe acute respiratory syndrome coronavirus 2, formerly known as 2019 novel coronavirus or 2019-nCoV) to aid in the diagnosis of COVID-19 is performed using the Simplexa COVID-19 Direct Assay by [employer] as authorized by the FDA issued Emergency Use Authorization (EUA). This assay is intended for In-vitro Diagnostic (IVD) use with nasopharyngeal swabs collected from individuals meeting the CDC criteria for testing. The assay is performed based on the instructions for use and additional guidance provided by the FDA. Testing is performed in the Microbiology Laboratory within the Department of Pathology and Laboratory Medicine at [facility], certified under the Clinical Laboratory Improvement Amendments of 1988 (CLIA), 42 U.S.C. ?? 263a, to perform high complexity tests. Assay performance has been verified according to clinical laboratory regulatory requirements. Test results are provided above. A result of Not Detected indicates that the viral RNA target is not present but does not preclude SARS-CoV-2 infection. False negative results may occur if a specimen is improperly collected, transported or handled; if amplification inhibitors are present; or if inadequate numbers of viral particles are present in the specimen. A result of Detected suggests a current or recent infection and the patient is presumed to be infected. Positive and negative predictive values for this test are highly dependent on disease prevalence. A result of Invalid is used when the inconclusive results are obtained due to the detection of only one of the viral genome regions targeted by this assay. Recollection or referral of testing to the [facility] or [facility] public health laboratory may be considered for specimens with indeterminate results. A result of Invalid indicates the inability to conclusively determine the presence or absence of SARS-CoV-2 RNA in the sample which can be due to a variety of factors. Recollection is recommended in the case of an invalid result. CDC COVID-19 criteria for testing on human specimens and clinical management guidance information are available at the CDC Coronavirus Disease 2019 (COVID-19) webpage under Information for Healthcare Professionals (https://www.cdc.gov/coronavirus/2019-ncov/hcp/index.html). SARS-CoV-2 Source [facility] Nasopharyngeal swab (specimen) 04/20/2020 6:08 PM EDT 04/20/2020 6:53 PM EDT Comment:Symptoms->COVID-19 S uspected Narrative Resulting Agency Comment Spec In Lab Raul Krishnan MD MICROBIOLOGY - GENER AL ORDERABLES [facility] [place] [address] * CT Angiogram [place] (04/20/2020 5:48 PM EDT) Anatomical Region Laterality Modality Neck, Head Computed Tomogra phy Impressions 04/20/2020 8:[address]: 1. 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 2. ??Supratentorial hydrocephalus and transependymal CSF flow. 3. ??Advanced dental caries and endodontal disease. CT angiogram of the [place]: 1. ??No aneurysm or evidence of AVM. 2. ??No large vessel occlusion. I Martín Cole discussed the result(s) over the phone with Dr. Obey Moreno of neurosurgery on 04/20/2020 5:54 PM and verified that (s)he understood these results. Preliminary report signed by: Martín Cole at 04/20/2020 6:20 PM I have personally reviewed the image(s) and the resident's interpretation and agree with the findings, Obye Beauchamp MD at 04/20/2020 8:04 PM Thank you for letting us participate in the care of this patient. For questions regarding this report, please contact the number below. ? Electronically signed by: Obey Beauchamp MD, Radiology [place] ([phone]), at 04/20/2020 8:04 PM Narrative 04/20/2020 8:04 PM EDT EXAMINATION: CT HEAD WO CONTRAST (GENERIC), CT ANGIOGRAM [place] CLINICAL HISTORY: Altered mental status TECHNIQUE: CT head performed without intravenous contrast administration.CT angiogram of the [place] was performed after administration intravenous contrast. 64 cc of Omnipaque 350 was administered. COMPARISON: Outside institution head CT 04/20/2020 at 1522 hours FINDINGS: HEAD CT: There is a 1.5 cm high attenuation intraparenchymal hemorrhage involving the right caudate head (axial series 2 image 22) with intraventricular extension of hemorrhage. There is extensive high attenuation blood products within the right lateral ventricle, crossing the foramen of Monro into the inferior left lateral ventricle with dependently layering blood products in the posterior ventricles. Blood products are present within the dilated third ventricle, cerebral aqueduct and fourth ventricle. The overall volume of intraparenchymal and intraventricular blood products is unchanged when compared to the earlier examination allowing for redistribution within the ventricular system. Unchanged ventriculomegaly. There is low-attenuation within the periventricular white matter, concerning for transependymal CSF flow in the setting of hydrocephalus. Basal cisterns are patent. Orbits are unremarkable. Endotracheal and enteric tube are present. Mucosal thickening of the anterior ethmoid sinuses. There are retained secretions within the posterior nasopharynx and oropharynx. Multiple sites of dental caries and advanced endodontal disease involving maxillary and mandibular teeth. Mastoid air cells are clear. No suspicious osseous lesions. No calvarial fracture. There is a 6 mm exophytic nodule within the left face (axial series 4 image 21). There is a 7 mm rounded nodule within the posterior superficial left parotid gland (axial series 3 image 17). CT ANGIOGRAM OF THE [place]: Mild narrowing of the bilateral cavernous ICAs due to atherosclerotic disease. Normal anterior cerebral arteries. Normal anterior communicating artery. Normal right and left middle cerebral arteries. Left posterior communicating artery is patent. The right posterior communicating artery is diminutive but patent. Normal posterior cerebral arteries. Normal basilar artery. Small caliber of the intradural vertebral arteries which are patent. No aneurysm. No evidence of arteriovenous malformation in the region of hemorrhage. Procedure Note Oeby Burger MD - 04/20/2020 EXAMINATION: CT HEAD WO CONTRAST (GENERIC), CT ANGIOGRAM [place] CLINICAL HISTORY: Altered mental status TECHNIQUE: CT head performed without intravenous contrast administration.CT angiogramof the [place] was performed after administration intravenouscontrast. 64 cc of Omnipaque 350 was administered. COMPARISON: Outside institution head CT 04/20/2020 at 1522 hours FINDINGS: HEAD CT: There is a 1.5 cm high attenuation intraparenchymal hemorrhage involvingthe right caudate head (axial series 2 image 22) with intraventricularextension of hemorrhage. There is extensive high attenuation blood products within theright lateral ventricle, crossing the foramen of Monro into the inferior leftlateral ventricle with dependently layering blood products in the posteriorventricles. Blood products are present within the dilated third ventricle, cerebralaqueduct and fourth ventricle. The overall volume of intraparenchymal and intraventricular blood products is unchanged when compared to theearlier examination allowing for redistribution within the ventricular system. Unchanged ventriculomegaly. There is low-attenuation within theperiventricular white matter, concerning for transependymal CSF flow in the setting of hydrocephalus. Basal cisterns are patent. Orbits are unremarkable. Endotracheal and enteric tube are present.Mucosal thickening of the anterior ethmoid sinuses. There are retained secretionswithin the posterior nasopharynx and oropharynx. Multiple sites of dental cariesand advanced endodontal disease involving maxillary and mandibular teeth.Mastoid air cells are clear. No suspicious osseous lesions. No calvarialfracture. There is a 6 mm exophytic nodule within the left face (axial series 4image 21). There is a 7 mm rounded nodule within the posterior superficial leftparotid gland (axial series 3 image 17). CT ANGIOGRAM OF THE [place]: Mild narrowing of the bilateral cavernous ICAs due to atheroscleroticdisease. Normal anterior cerebral arteries. Normal anterior communicating artery.Normal right and left middle cerebral arteries. Left posterior communicatingartery is patent. The right posterior communicating artery is diminutive butpatent. Normal posterior cerebral arteries. Normal basilar artery. Small caliberof the intradural vertebral arteries which are patent. No aneurysm. No evidence of arteriovenous malformation in the region of hemorrhage. IMPRESSION Head CT: 1. Right caudate intraparenchymal hemorrhage with intraventricularextension of blood products. 2. Supratentorial hydrocephalus and transependymal CSF flow. 3. Advanced dental caries and endodontal disease. CT angiogram of the [place]: 1. No aneurysm or evidence of AVM. 2. No large vessel occlusion. I Martín Cole discussed the result(s) over the phone with Dr.John Moreno of neurosurgery on 04/20/2020 5:54 PM and verified that (s)heunderstood these results. Preliminary report signed by: Martín Cole at 04/20/2020 6:20 PM I have personally reviewed the image(s) and the resident's interpretationand agree with the findings, Obey Beauchamp MD at 04/20/2020 8:04 PM Thank you for letting us participate in the care of this patient. Forquestions regarding this report, please contact the number below. Electronically signed by: Obey Beauchamp MD, [facility]([phone]), at 04/20/2020 8:04 PM Raul Krishnan MD IMG CT ORDERABLES * CT Head wo Contrast (Generic) (04/20/2020 5:48 PM EDT) Anatomical Region Laterality Modality Head Computed Tomogra phy Impressions 04/20/2020 8:[address]: 1. 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 2. ??Supratentorial hydrocephalus and transependymal CSF flow. 3. ??Advanced dental caries and endodontal disease. CT angiogram of the [place]: 1. ??No aneurysm or evidence of AVM. 2. ??No large vessel occlusion. I Martín Cole discussed the result(s) over the phone with Dr. Obey Moreno of neurosurgery on 04/20/2020 5:54 PM and verified that (s)he understood these results. Preliminary report signed by: Martín Cole at 04/20/2020 6:20 PM I have personally reviewed the image(s) and the resident's interpretation and agree with the findings, Obey Beauchamp MD at 04/20/2020 8:04 PM Thank you for letting us participate in the care of this patient. For questions regarding this report, please contact the number below. ? Electronically signed by: Obey Beauchamp MD, [facility] ([phone]), at 04/20/2020 8:04 PM Narrative 04/20/2020 8:04 PM EDT EXAMINATION: CT HEAD WO CONTRAST (GENERIC), CT ANGIOGRAM [place] CLINICAL HISTORY: Altered mental status TECHNIQUE: CT head performed without intravenous contrast administration.CT angiogram of the [place] was performed after administration intravenous contrast. 64 cc of Omnipaque 350 was administered. COMPARISON: Outside institution head CT 04/20/2020 at 1522 hours FINDINGS: HEAD CT: There is a 1.5 cm high attenuation intraparenchymal hemorrhage involving the right caudate head (axial series 2 image 22) with intraventricular extension of hemorrhage. There is extensive high attenuation blood products within the right lateral ventricle, crossing the foramen of Monro into the inferior left lateral ventricle with dependently layering blood products in the posterior ventricles. Blood products are present within the dilated third ventricle, cerebral aqueduct and fourth ventricle. The overall volume of intraparenchymal and intraventricular blood products is unchanged when compared to the earlier examination allowing for redistribution within the ventricular system. Unchanged ventriculomegaly. There is low-attenuation within the periventricular white matter, concerning for transependymal CSF flow in the setting of hydrocephalus. Basal cisterns are patent. Orbits are unremarkable. Endotracheal and enteric tube are present. Mucosal thickening of the anterior ethmoid sinuses. There are retained secretions within the posterior nasopharynx and oropharynx. Multiple sites of dental caries and advanced endodontal disease involving maxillary and mandibular teeth. Mastoid air cells are clear. No suspicious osseous lesions. No calvarial fracture. There is a 6 mm exophytic nodule within the left face (axial series 4 image 21). There is a 7 mm rounded nodule within the posterior superficial left parotid gland (axial series 3 image 17). CT ANGIOGRAM OF THE [place]: Mild narrowing of the bilateral cavernous ICAs due to atherosclerotic disease. Normal anterior cerebral arteries. Normal anterior communicating artery. Normal right and left middle cerebral arteries. Left posterior communicating artery is patent. The right posterior communicating artery is diminutive but patent. Normal posterior cerebral arteries. Normal basilar artery. Small caliber of the intradural vertebral arteries which are patent. No aneurysm. No evidence of arteriovenous malformation in the region of hemorrhage. Procedure Note Obey Burger MD - 04/20/2020 EXAMINATION: CT HEAD WO CONTRAST (GENERIC), CT ANGIOGRAM [place] CLINICAL HISTORY: Altered mental status TECHNIQUE: CT head performed without intravenous contrast administration.CT angiogramof the [place] was performed after administration intravenouscontrast. 64 cc of Omnipaque 350 was administered. COMPARISON: Outside institution head CT 04/20/2020 at 1522 hours FINDINGS: HEAD CT: There is a 1.5 cm high attenuation intraparenchymal hemorrhage involvingthe right caudate head (axial series 2 image 22) with intraventricularextension of hemorrhage. There is extensive high attenuation blood products within theright lateral ventricle, crossing the foramen of Monro into the inferior leftlateral ventricle with dependently layering blood products in the posteriorventricles. Blood products are present within the dilated third ventricle, cerebralaqueduct and fourth ventricle. The overall volume of intraparenchymal and intraventricular blood products is unchanged when compared to theearlier examination allowing for redistribution within the ventricular system. Unchanged ventriculomegaly. There is low-attenuation within theperiventricular white matter, concerning for transependymal CSF flow in the setting of hydrocephalus. Basal cisterns are patent. Orbits are unremarkable. Endotracheal and enteric tube are present.Mucosal thickening of the anterior ethmoid sinuses. There are retained secretionswithin the posterior nasopharynx and oropharynx. Multiple sites of dental cariesand advanced endodontal disease involving maxillary and mandibular teeth.Mastoid air cells are clear. No suspicious osseous lesions. No calvarialfracture. There is a 6 mm exophytic nodule within the left face (axial series 4image 21). There is a 7 mm rounded nodule within the posterior superficial leftparotid gland (axial series 3 image 17). CT ANGIOGRAM OF THE [place]: Mild narrowing of the bilateral cavernous ICAs due to atheroscleroticdisease. Normal anterior cerebral arteries. Normal anterior communicating artery.Normal right and left middle cerebral arteries. Left posterior communicatingartery is patent. The right posterior communicating artery is diminutive butpatent. Normal posterior cerebral arteries. Normal basilar artery. Small caliberof the intradural vertebral arteries which are patent. No aneurysm. No evidence of arteriovenous malformation in the region of hemorrhage. IMPRESSION Head CT: 1. Right caudate intraparenchymal hemorrhage with intraventricularextension of blood products. 2. Supratentorial hydrocephalus and transependymal CSF flow. 3. Advanced dental caries and endodontal disease. CT angiogram of the [place]: 1. No aneurysm or evidence of AVM. 2. No large vessel occlusion. I Martín Cole discussed the result(s) over the phone with Dr.John Moreno of neurosurgery on 04/20/2020 5:54 PM and verified that (s)heunderstood these results. Preliminary report signed by: Martín Cole at 04/20/2020 6:20 PM I have personally reviewed the image(s) and the resident's interpretationand agree with the findings, Obey Beauchamp MD at 04/20/2020 8:04 PM Thank you for letting us participate in the care of this patient. Forquestions regarding this report, please contact the number below. Electronically signed by: Obey Beauchamp MD, [facility]([phone]), at 04/20/2020 8:04 PM Raul Krishnan MD [facility] [place]LES * Film Library- Storage Only DX Chest (04/20/2020 5:01 PM EDT) Narrative [facility] - 04/20/2020 5:01 PM EDT This exam is auto-finalizing. It's purpose is for storage only. Jana Trinh MD [facility] [place]RARY ORD ERABLES [place], [place] * Film Library- Storage Only CT Chest Abdomen Pelvis (04/20/2020 4:16 PM EDT) Narrative [facility] - 04/20/2020 4:16 PM EDT This exam is auto-finalizing. It's purpose is for storage only. Jana Trinh MD [facility] [place]D ERABLES Performing Organization Address [facility] Co de Phone Number [place], [place] * Film Library- Storage Only CT Head And Spine (04/20/2020 4:15 PM EDT) Narrative [facility] - 04/20/2020 4:15 PM EDT This exam is auto-finalizing. It's purpose is for storage only. Jana Trinh MD [facility] [place] [place]D ERABLES Performing Organization Address 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 influenzae) DVT (deep venous thrombosis) LLE Acute venous embolism and thrombosis of unspecified deep vessels of lower extremity Superficial venous thrombosis of arm, bilateral documented in this encounter Admitting Diagnoses Diagnosis Intraventricular hemorrhage Intracerebral hemorrhage documented in this encounter Administered Medications Inactive Administered Medications - up to 3 most recent administrations Medication Order MAR Action Action Date Dose Rate Site acetaminophen (Tylenol) (32.02 mg/mL) oral liquid 1,000 mg 1,000 mg, Oral, EVERY 6 HOURS SCHEDULED, First dose on Wed04/29/20 at 0000, Until Discontinued, Maximum dose of acetaminophen is 4000 mg from all sources in 24 hours. Should be given concomitantly if other Analgesics are ordered., Routine Given 05/01/2020 5:36 AM EDT 1,000 mg Given 05/01/2020 12:15 AM EDT 1,000 mg Given 04/30/2020 5:20 PM EDT 1,000 mg acetaminophen (Tylenol) (32.02 mg/mL) oral liquid 1,000 mg 1,000 mg, Oral, EVERY 6 HOURS PRN, Starting on 05/03/20 at 1642, Until 05/05/20 at 1136, Pain, Fever, Maximum dose of acetaminophen is 4000 mg from all sources in 24 hours. Should be given concomitantly if other Analgesics are ordered., Routine Given 05/04/2020 1:50 AM EDT 1,000 mg acetaminophen (Tylenol) (32.02 mg/mL) oral liquid 1,000 mg 1,000 mg, Per NG tube, EVERY 8 HOURS PRN, Starting on 05/05/20 at 1145, Until 05/08/20 at 1223, Pain, Fever, Maximum dose of acetaminophen is 4000 mg from all sources in 24 hours. Should be given concomitantly if other Analgesics are ordered., Routine Given 05/07/2020 11:46 AM EDT 1,000 mg acetaminophen (Tylenol) (32.02 mg/mL) oral liquid 975 mg 975 mg, Per G Tube, EVERY 6 HOURS PRN, Starting on 04/20/20 at 2228, Until 04/28/20 at 2253, Pain, Fever, pain or temperature greater than 100 degrees F (measured by mouth), Should be given concomitantly if other Analgesics are ordered., Routine Given 04/28/2020 10:33 PM EDT 975 mg Given 04/28/2020 9:01 AM EDT 975 mg Given 04/27/2020 2:51 PM EDT 975 mg acetaminophen (Tylenol) tablet 500 mg 500 mg, Oral, EVERY 6 HOURS PRN, Starting on Wed05/08/20 at 1222, Until Wed05/10/20 at 1355, Pain, Maximum dose of acetaminophen is 4000 mg from all sources in 24 hours., Routine Given 05/09/2020 9:09 PM EDT 500 mg Given 05/08/2020 1:31 PM EDT 500 mg albuteroL 90 mcg/actuation inhaler 2 puff 2 puff, Inhalation, EVERY 6 HOURS PRN, Starting on Wed04/26/20 at 2326, Until Wed05/10/20 at 1355, Wheezing, Routine, Is there a contraindication to the patient receiving this medication as a nebulizer? Yes albuteroL 90 mcg/actuation inhaler 6 puff 6 puff, Inhalation, EVERY 6 HOURS PRN, Starting on Wed04/25/20 at 1216, Until Wed04/26/20 at 2326, Wheezing, Routine, Is there a contraindication to the patient receiving this medication as a nebulizer? Yes Given 04/25/2020 2:32 PM EDT 6 puffs albuteroL 90 mcg/actuation inhaler 1 dose, Starting on Wed04/25/20 at 1217, Until Wed04/25/20 at 1222, Tai Pineda (rt): cabinet override Given 04/25/2020 12:22 PM EDT 6 puffs amLODIPine (Norvasc) tablet 10 mg 10 mg, Oral, DAILY, First dose (after last modification) on Wed04/26/20 at 0900, Until Discontinued, Routine Given 05/02/2020 9:44 AM EDT 10 mg Given 05/01/2020 9:13 AM EDT 10 mg Given 04/30/2020 8:46 AM EDT 10 mg amLODIPine (Norvasc) tablet 10 mg 10 mg, Per NG tube, DAILY, First dose (after last modification) on Wed05/03/20 at 0900, Until Discontinued, Routine Given 05/08/2020 8:12 AM EDT 10 mg Given 05/07/2020 8:45 AM EDT 10 mg Given 05/06/2020 8:35 AM EDT 10 mg amLODIPine (Norvasc) tablet 10 mg 10 mg, Oral, DAILY, First dose on Wed05/09/20 at 0900, Until Discontinued, Routine Given 05/10/2020 8:40 AM EDT 10 mg Given 05/09/2020 8:51 AM EDT 10 mg amLODIPine (Norvasc) tablet 5 mg 5 mg, Oral, DAILY, First dose on Wed04/24/20 at 1130, Until Discontinued, Routine Given 04/25/2020 8:14 AM EDT 5 mg Given 04/24/2020 12:04 PM EDT 5 mg bisacodyL (Dulcolax) suppository 10 mg 10 mg, Rectal, DAILY PRN, Starting on 04/20/20 at 2228, Until Wed05/01/20 at 1028, Constipation, Administer if needed per patient's routine or if no bowel movement within 48 hours to achieve: (1) One bowel movement at least every 48 hours, AND (2) Without straining. If multiple PRN bowel medications ordered, start with magnesium hydroxide, then bisacodyl. Multiple medications may be given concomitantly for constipation., Routine Given 04/25/2020 2:41 PM EDT 10 mg ceFAZolin (Ancef) 2g in dextrose 5% 100 mL 2 g, Intravenous, ONCE, 1 dose, On 04/20/20 at 1804, Administer over 30 Minutes, Indication for (Active or Suspected): Sinusitis/Pharyngitis Given 04/20/2020 6:04 PM EDT 2 g 200 mL/hr cefTRIAXone (ROCEPHIN) 2 g vial attach to sodium chloride 0.9% 50 mL Mini-Bag Plus 2 g, Intravenous, EVERY 24 HOURS, 5 doses, First dose on [place] 04/25/20 at 1000, Last dose on Wed04/29/20 at 1000, Administer over 30 Minutes, Indication for (Active or Suspected): Pneumonia ([facility]) New Bag 04/28/2020 9:07 AM EDT 2 g 100 mL/hr New Bag 04/27/2020 9:35 AM EDT 2 g 100 mL/hr New Bag 04/26/2020 10:14 AM EDT 2 g 100 mL/hr cefTRIAXone (ROCEPHIN) 2 g vial attach to sodium chloride 0.9% 50 mL Mini-Bag Plus 2 g, Intravenous, EVERY 24 HOURS, 10 doses, First dose (after last modification) on Wed04/29/20 at 1000, Last dose on Wed05/08/20 at 1000, Administer over 30 Minutes, Indication for (Active or Suspected): Pneumonia ([facility]) New Bag 05/02/2020 9:46 AM EDT 2 g 100 mL/hr New Bag 05/01/2020 11:07 AM EDT 2 g 100 mL/hr New Bag 04/30/2020 10:01 AM EDT 2 g 100 mL/hr chlorhexidine (PERIDEX) 0.12 % oral solution 15 mL 15 mL, Oral, 2 TIMES DAILY, First dose on 04/20/20 at 2300, Until Discontinued, Swab oral cavity. Ventilator-associated pneumonia prophylaxis, Routine Given 04/26/2020 9:50 PM EDT 15 mLs Given 04/26/2020 8:24 AM EDT 15 mLs Given 04/25/2020 9:10 PM EDT 15 mLs dexmedetomidine (PRECEDEX) 4 mcg/mL (standard Adult & Pedi greater than 20kg) infusion (premix) 0-1.7 mcg/kg/hr ? 65.6 kg (0-27.88 mL/hr, rounded to 0-27.9 mL/hr), Intravenous, CONTINUOUS, Starting on 04/24/20 at 1615, Until 04/28/20 at 0752, Titrate to sedation level of RASS Goal (-)1 to 0 . Start at 0.4 mcg/kg/hr, adjust by 0.4 mcg/kg/hr every 15 minutes. Once stable, reassess patient every 30 minutes. Rate not to exceed 1.7 mcg/kg/hr. Change rate only after assessing and documenting RASS. Reassess sedation scores within 30 minutes after every rate change. If under sedated, increase rate by 0.4 mcg/kg/hr. If over sedated, hold sedative until target RASS (-)1 to 0 achieved and then restart at 50% of previous rate. Call oil house attendant if goal not achieved at maximum rate. If SAT is ordered and if patient meets criteria for Spontaneous Awakening Trial, titrate per protocol., Routine Rate/Dose Verify 04/27/2020 8:00 PM EDT 0.2 mcg/kg/hr 3.3 mL/hr Rate/Dose Change 04/27/2020 2:52 PM EDT 0.2 mcg/kg/hr 3.3 mL/hr Rate/Dose Change 04/27/2020 1:03 PM EDT 0.3 mcg/kg/hr 4.9 mL/hr enalaprilat (VASOTEC) injection 1.25 mg, Intravenous, Administer over 5 Minutes, EVERY 6 HOURS PRN, Starting on 04/20/20 at 2228, Until 04/29/20 at 0537, Hypertension, - Administer if inadequate blood pressure control in 30 minutes despite Labetalol. enalaprilat can be given with labetalol or nicardipine. - Give when SBP is greater than 160 mmHg or DBP greater than 90 mmHg., Routine Given 04/26/2020 11:31 AM EDT 1.25 mg Given 04/26/2020 3:36 AM EDT 1.25 mg enoxaparin (LOVENOX) injection 40 mg 40 mg, Subcutaneous, EVERY EVENING, First dose on [place] 05/02/20 at 1700, Until Discontinued, Routine Given 05/09/2020 5:21 PM EDT 40 mg Abdominal Tissue Given 05/08/2020 4:04 PM EDT 40 mg Ri ght Lower Quadrant Given 05/07/2020 5:53 PM EDT 40 mg famotidine (PEPCID) injection 20 mg 20 mg, Intravenous, EVERY 12 HOURS SCHEDULED (2 times per day), First dose on 04/20/20 at 2300, Until Discontinued Given 04/27/2020 9:00 PM EDT 20 mg Given 04/27/2020 8:31 AM EDT 20 mg Given 04/26/2020 9:50 PM EDT 20 mg famotidine (Pepcid) tablet 40 mg 40 mg, Per NG tube, DAILY, First dose on Wed04/28/20 at 0900, Until Discontinued, Routine Given 05/08/2020 8:11 AM EDT 40 mg Given 05/07/2020 8:43 AM EDT 40 mg Given 05/06/2020 8:35 AM EDT 40 mg famotidine (Pepcid) tablet 40 mg 40 mg, Oral, DAILY, First dose on [place] 05/09/20 at 0900, Until Discontinued, Routine Given 05/10/2020 8:39 AM EDT 40 mg Given 05/09/2020 8:51 AM EDT 40 mg fentaNYL (PF) 50mcg/mL injection 25 mcg, Intravenous, EVERY 30 MIN PRN, Starting on 04/20/20 at 2232, Until Wed05/01/20 at 1855, Pain, Routine Given 04/27/2020 7:41 PM EDT 25 mcg Given 04/25/2020 5:02 AM EDT 25 mcg fentaNYL (PF) 50mcg/mL injection 25 mcg, Intravenous, ONCE, 1 dose, On Wed04/24/20 at 0330, If medication ordered subcutaneously, do not administer more than 2 mL as a single injection., Routine Given 04/24/2020 3:21 AM EDT 25 mcg fentaNYL (PF) 50mcg/mL injection 25 mcg, Intravenous, ONCE, 1 dose, On Wed04/24/20 at 0345, If medication ordered subcutaneously, do not administer more than 2 mL as a single injection., Routine Given 04/24/2020 3:29 AM EDT 25 mcg fentaNYL 50 mcg/mL syringe 0-75 mcg/hr (0-1.5 mL/hr), Intravenous, CONTINUOUS, Starting on 04/21/20 at 2030, Until [place] 04/25/20 at 1532, Pain Scale Goal Less than or equal to 3 or to patient verbalized goal. Initial Infusion rate: 50 mcg/hour; Adjust hourly rate by 50% AND bolus 50% of new hourly rate every 15 minutes to achieve goal. Rate not to exceed 200 mcg/hr. Pain assessment every 15 minutes initially and reassess pain 15 minutes after each bolus given. Pain assessment MUST be documented prior to rate change. Rate/Dose Verify 04/23/2020 8:00 AM EDT 0 mcg/hr 0 mL/hr Rate/Dose Verify 04/22/2020 12:00 PM EDT 75 mcg/hr 1.5 mL /hr Rate/Dose Change 04/22/2020 8:54 AM EDT 75 mcg/hr 1.5 mL/ hr fludrocortisone (Florinef) tablet 100 mcg 100 mcg (0.1 mg), Oral, DAILY, First dose on Wed04/28/20 at 1200, Until Discontinued, Routine Given 04/30/2020 8:47 AM EDT 100 mcg Given 04/29/2020 8:45 AM EDT 100 mcg Given 04/28/2020 11:39 AM EDT 100 mcg folic acid (Folvite) tablet 1,000 mcg 1,000 mcg (1 mg), Oral, DAILY, First dose on Wed04/22/20 at 1300, Until Discontinued, Routine Given 05/02/2020 9:44 AM EDT 1,000 mcg Given 05/01/2020 9:13 AM EDT 1,000 mcg Given 04/30/2020 8:46 AM EDT 1,000 mcg folic acid (Folvite) tablet 1,000 mcg 1,000 mcg (1 mg), Per NG tube, DAILY, First dose (after last modification) on Wed05/03/20 at 0900, Until Discontinued, Routine Given 05/08/2020 8:13 AM EDT 1,000 mcg Given 05/07/2020 8:45 AM EDT 1,000 mcg Given 05/06/2020 8:36 AM EDT 1,000 mcg folic acid (Folvite) tablet 1,000 mcg 1,000 mcg (1 mg), Oral, DAILY, First dose (after last modification) on [place] 05/09/20 at 0900, Until Discontinued, Routine Given 05/10/2020 8:39 AM EDT 1,000 m cg Given 05/09/2020 8:51 AM EDT 1,000 mcg folic acid injection 1 mg 1 mg, Intravenous, DAILY, 3 doses, First dose on Wed04/21/20 at 0900, Last dose on Wed04/23/20 at 0900, Routine Given 04/22/2020 11:51 AM EDT 1 mg Given 04/21/2020 8:48 AM EDT 1 mg free water bolus 200 mL 200 mL, Per NG tube, 4 TIMES DAILY, First dose on [facility] 05/02/20 at 1015, Until Discontinued, Routine Given 05/03/2020 9:00 PM EDT 200 mLs Given 05/03/2020 5:00 PM EDT 200 mLs Given 05/03/2020 1:00 PM EDT 200 mLs free water bolus 300 mL 300 mL, Per NG tube, 4 TIMES DAILY, First dose (after last modification) on [facility] 05/04/20 at 0900, Until Discontinued, Routine Given 05/08/2020 8:15 AM EDT 300 mLs Given 05/07/2020 8:50 PM EDT 300 mLs Given 05/07/2020 5:53 PM EDT 300 mLs gadoterate meglumine (DOTAREM) 0.5 mmol/mL (376.9 mg/mL) injection 12.52 mL 12.52 mL (0.2 mL/kg/dose ? 62.6 kg), Intravenous, ONCE PRN, 1 dose, Starting on Wed04/21/20 at 1419, Until [place] 04/21/20 at 1419, Per Protocol, Radiology Contrast, Routine Given 04/21/2020 2:19 PM EDT 12 mLs gadoterate meglumine (DOTAREM) 0.5 mmol/mL (376.9 mg/mL) injection 13.12 mL 13.12 mL (0.2 mL/kg/dose ? 65.6 kg), Intravenous, ONCE PRN, 1 dose, Starting on Wed04/23/20 at 2207, Until Wed04/23/20 at 2222, Per Protocol, Radiology Contrast, Routine Given 04/23/2020 10:22 PM EDT 13 mLs heparin (Porcine) subcutaneous injection 5,000 Units 5,000 Units, Subcutaneous, EVERY 8 HOURS SCHEDULED, First dose on Wed04/23/20 at 1400, Until Discontinued, Routine Given 05/02/2020 6:04 AM EDT 5,000 Units Given 05/01/2020 9:05 PM EDT 5,000 Units Given 05/01/2020 3:18 PM EDT 5,000 Units hydrALAZINE (APRESOLINE) injection 5 mg 5 mg, Intravenous, EVERY 4 HOURS PRN, Starting on Wed04/26/20 at 2324, Until Wed04/29/20 at 0537, High Blood Pressure, SBP > 160, Routine Given 04/27/2020 8:32 PM EDT 5 mg iodixanoL (VISIPAQUE) 320 mg iodine/mL injection 300 mL 300 mL, Intra-arterial, ONCE PRN, 1 dose, Starting on Wed04/22/20 at 1100, Until Wed04/22/20 at 1000, Per Protocol, Routine Given 04/22/2020 10:00 AM EDT 200 m Ls iohexoL (OMNIPAQUE) 350 mg/mL solution 0-200 mL 0-200 mL, Intravenous, ONCE PRN, 1 dose, Starting on 04/20/20 at 1743, Until 04/20/20 at 1743, Per Protocol, Warning Vesicant/Irritant Medication , Radiology Contrast, Routine Given 04/20/2020 5:43 PM EDT 65 mLs ketorolac (TORADOL) injection 15 mg 15 mg, Intravenous, ONCE, 1 dose, On Wed05/07/20 at 1200, Routine Given 05/07/2020 8:52 PM EDT 15 mg labetalol (NORMODYNE,TRANDATE) injection 10-20 mg 10-20 mg, Intravenous, Administer over 2 Minutes, EVERY 15 MIN PRN, Starting on 04/20/20 at 2228, Until Wed05/10/20 at 1355, High Blood Pressure, - Administer for systolic blood pressure (SBP) greater than 160 mmHg. - Administer 10 mg over 2 minutes. May repeat every 15 minutes if SBP remains above goal. - If inadequate effect with 10 mg dose then increase dose to 20 mg for subsequent dosing every 15 minutes. - Dose not to exceed 300 mg per day. Hold if pulse is less than 50 beats per minute. If Labetalol does not satisfactorily control BP within 30 minutes, consider enalaprilat or niCARdipine., Routine Given 05/05/2020 4:04 AM EDT 20 mg Given 05/01/2020 10:02 PM EDT 10 mg Given 05/01/2020 5:58 AM EDT 10 mg levETIRAcetam (KEPPRA) 1,000 mg in sodium chloride (ISO-OSM) 100 mL 1,000 mg (1 g), Intravenous, at 400 mL/hr, ONCE, 1 dose, On 04/20/20 at 1940, Routine Given 04/20/2020 7:40 PM EDT 1,000 mg 400 mL /hr levETIRAcetam (KEPPRA) 500 mg in sodium chloride 0.82% 100 mL 500 mg, Intravenous, at 400 mL/hr, EVERY 12 HOURS SCHEDULED (2 times per day), First dose on 04/20/20 at 2315, Until Discontinued, Routine New Bag 04/28/2020 8:08 PM EDT 500 mg 400 mL/hr New Bag 04/28/2020 8:45 AM EDT 500 mg 400 mL/hr New Bag 04/27/2020 9:01 PM EDT 500 mg 400 mL/hr lidocaine (LIDODERM) 5 % patch 1 patch 1 patch, Transdermal, DAILY, First dose on [place] 05/09/20 at 1030, Until Discontinued, Apply patch(es) for 12 hours, and then remove for 12 hours For back pain, Routine Patch Applied 05/09/2020 12:18 PM EDT 1 patch 07- Back Lower (Left) lidocaine (XYLOCAINE) 10 mg/mL (1 %) injection 200 mg 200 mg, Subcutaneous, ONCE, 1 dose, On Wed05/03/20 at 1530, STAT Given 05/03/2020 3:30 PM EDT 200 mg lisinopriL (Prinivil;Zestril) tablet 10 mg 10 mg, Oral, DAILY, First dose on Wed04/26/20 at 0930, Until Discontinued, Routine Given 04/27/2020 8:31 AM EDT 10 mg Given 04/26/2020 10:17 AM EDT 10 mg lisinopriL (Prinivil;Zestril) tablet 10 mg 10 mg, Oral, ONCE, 1 dose, On 04/27/20 at 1030, Routine Given 04/27/2020 11:30 AM EDT 10 mg lisinopriL (Prinivil;Zestril) tablet 20 mg 20 mg, Oral, DAILY, First dose (after last modification) on Wed04/28/20 at 0900, Until Discontinued, Routine Given 05/02/2020 9:44 AM EDT 20 mg Given 05/01/2020 9:13 AM EDT 20 mg Given 04/30/2020 8:46 AM EDT 20 mg lisinopriL (Prinivil;Zestril) tablet 20 mg 20 mg, Oral, ONCE, 1 dose, On [place] 05/02/20 at 1030, Routine Given 05/02/2020 10:10 AM EDT 20 mg lisinopriL (Prinivil;Zestril) tablet 40 mg 40 mg, Per NG tube, DAILY, First dose (after last modification) on Wed05/03/20 at 0900, Until Discontinued, Routine Given 05/08/2020 8:13 AM EDT 40 mg Given 05/07/2020 8:44 AM EDT 40 mg Given 05/06/2020 8:36 AM EDT 40 mg lisinopriL (Prinivil;Zestril) tablet 40 mg 40 mg, Oral, DAILY, First dose (after last modification) on [place] 05/09/20 at 0900, Until Discontinued, Routine Given 05/10/2020 8:39 AM EDT 40 mg Given 05/09/2020 8:51 AM EDT 40 mg LORazepam (ATIVAN) injection 2 mg 2 mg, Intravenous, ONCE, 1 dose, On Wed05/03/20 at 1000, STAT Given 05/03/2020 11:48 AM EDT 2 mg magnesium hydroxide (Milk of Magnesia) (240 mg/mL) oral liquid 10 mL 10 mL, Oral, NIGHTLY PRN, Starting on 04/20/20 at 2228, Until [place] 04/25/20 at 1637, Constipation, Administer if needed per patient's routine or if no bowel movement within 48 hours to achieve: (1) One bowel movement at least every 48 hours, AND (2) Without straining. If multiple PRN bowel medications ordered, start with magnesium hydroxide, then bisacodyl. Multiple medications may be given concomitantly for constipation., Routine Given 04/24/2020 8:55 PM EDT 10 mLs magnesium hydroxide (Milk of Magnesia) (240 mg/mL) oral liquid 10 mL 10 mL, Oral, NIGHTLY, First dose (after last modification) on [place] 04/25/20 at 2100, Until Discontinued, Administer if needed per patient's routine or if no bowel movement within 48 hours to achieve: (1) One bowel movement at least every 48 hours, AND (2) Without straining. If multiple PRN bowel medications ordered, start with magnesium hydroxide, then bisacodyl. Multiple medications may be given concomitantly for constipation., Routine Given 04/30/2020 8:18 PM EDT 10 mLs Given 04/27/2020 9:01 PM EDT 10 mLs Given 04/26/2020 9:50 PM EDT 10 mLs magnesium sulfate 2 g in sterile water 50 mL 2 g, Intravenous, ONCE, 1 dose, On Wed04/23/20 at 0730, Administer over 120 Minutes, Minimum infusion duration is 2 hours. New Bag 04/23/2020 7:55 AM EDT 2 g 25 mL/hr magnesium sulfate 2 g in sterile water 50 mL 2 g, Intravenous, ONCE, 1 dose, On Wed04/26/20 at 0245, Administer over 120 Minutes, Minimum infusion duration is 2 hours. New Bag 04/26/2020 3:18 AM EDT 2 g 25 mL/hr magnesium sulfate 2 g in sterile water 50 mL 2 g, Intravenous, ONCE, 1 dose, On Wed04/29/20 at 0300, Administer over 120 Minutes, Minimum infusion duration is 2 hours. New Bag 04/29/2020 3:26 AM EDT 2 g 25 mL/hr magnesium sulfate 2 g in sterile water 50 mL 2 g, Intravenous, ONCE, 1 dose, On Wed05/07/20 at 0715, Administer over 120 Minutes New Bag 05/07/2020 8:41 AM EDT 2 g 25 mL/hr mannitol (50 grams and over) 100 g/500 mL (20%) infusion 65 g, Intravenous, ONCE, 1 dose, On Wed04/20/20 at 1818, Warning Vesicant/Irritant Medication New Bag 04/20/2020 6:18 PM EDT 65 g modafiniL (Provigil) tablet 100 mg 100 mg, Oral, DAILY, First dose on Wed05/01/20 at 1045, Until Discontinued, Routine Given 05/01/2020 11:17 AM EDT 100 mg modafiniL (Provigil) tablet 100 mg 100 mg, Oral, 2 TIMES DAILY, First dose on Wed05/01/20 at 1200, Until Discontinued, Routine Given 05/02/2020 6:04 AM EDT 100 mg modafiniL (Provigil) tablet 100 mg 100 mg, Per NG tube, 2 TIMES DAILY, First dose (after last modification) on Wed05/02/20 at 1200, Until Discontinued, Please give morning dose at 7AM, Routine Given 05/08/2020 12:17 PM EDT 100 mg Given 05/08/2020 5:11 AM EDT 100 mg Given 05/07/2020 11:46 AM EDT 100 mg modafiniL (Provigil) tablet 100 mg 100 mg, Oral, 2 TIMES DAILY, First dose (after last modification) on [place] 05/09/20 at 0700, Until Discontinued, Please give morning dose at 7AM, Routine Given 05/10/2020 6:58 AM EDT 100 mg Given 05/09/2020 12:18 PM EDT 100 mg Given 05/09/2020 8:51 AM EDT 100 mg multivitamin with minerals (THERA-M) tablet 1 tablet 1 tablet, Oral, DAILY, First dose on Wed04/21/20 at 0900, Until Discontinued, Routine Given 05/10/2020 8:40 AM EDT 1 tablet Given 05/09/2020 8:51 AM EDT 1 tablet Given 05/08/2020 8:16 AM EDT 1 tablet niCARdipine (CARDENE) 40 mg/200 mL infusion 1 dose, Starting on 04/20/20 at 1812, Until 04/20/20 at 1813, LORENA HIGHTOWER: cabinet override niCARdipine 0.2 mg/mL (standard Adult and Pedi greater than 20 kg) infusion 0-15 mg/hr (0-75 mL/hr), Intravenous, CONTINUOUS, Starting on 04/20/20 at 1818, Until [place] 04/25/20 at 0905, Titrate to SBP greater than 100 and less than 160 mmHg. Start at 5 mg/hour, titrate to maintain target SBP, adjust infusion rate by 2.5 mg/hour every 5 minutes to a maximum of 15 mg/hour. Rotate IV site every 12 hours, Routine New Bag 04/25/2020 3:00 AM EDT 5 mg/hr 25 mL/hr Rate/Dose Change 04/25/2020 1:08 AM EDT 5 mg/hr 25 mL/h r Rate/Dose Change 04/25/2020 1:00 AM EDT 10 mg/hr 50 mL/h r niCARdipine 0.2 mg/mL (standard Adult and Pedi greater than 20 kg) infusion 0-15 mg/hr (0-75 mL/hr), Intravenous, CONTINUOUS, Starting on Wed04/27/20 at 2200, Until 04/29/20 at 0537, Titrate to SBP 100-160 mmHg. Start at 5 mg/hour, titrate to maintain target SBP, adjust infusion rate by 2.5 mg/hour every 5 minutes to a maximum of 15 mg/hour. Rotate IV site every 12 hours, Routine New Bag 04/28/2020 9:01 PM EDT 5 mg/hr 25 mL/hr Rate/Dose Change 04/28/2020 8:01 AM EDT 5 mg/hr 25 mL/h r Rate/Dose Verify 04/28/2020 6:00 AM EDT 7.5 mg/hr 37.5 mL /hr nicotine (NICODERM CQ) 14 mg/24 hr patch 14 mg 14 mg (1 patch), Transdermal, Administer over 24 Hours, DAILY, 7 doses, First dose on Wed05/09/20 at 1030, Last dose on Wed05/15/20 at 0900, Routine Given 05/10/2020 8:40 AM EDT 14 mg 10- Arm Upper (Right ) Given 05/09/2020 10:26 AM EDT 14 mg 0 9- Arm Upper (Left) nicotine (NICODERM CQ) 14 mg/24 hr patch Patch Removal Transdermal, DAILY, 7 doses, First dose on Wed05/10/20 at 1015, Last dose on Wed05/16/20 at 0900, Remove nicotine 14 mg/24 hr patch nicotine (NICODERM CQ) 14 mg/24 hr patch Patch Verification Transdermal, 2 TIMES DAILY, 14 doses, First dose on Wed05/09/20 at 2215, Last dose on Wed05/16/20 at 0900, Verify nicotine 14 mg/24 hr patch. nicotine (NICODERM CQ) 21 mg/24 hr patch 21 mg 21 mg (1 patch), Transdermal, DAILY, First dose on Wed05/02/20 at 1015, Until Discontinued, Routine Patch Applied 05/08/2020 8:16 AM EDT 21 mg 04- Shoulder (Right) Patch Applied 05/07/2020 8:42 AM EDT 21 mg 03- Shoulder (Left) Patch Applied 05/06/2020 8:35 AM EDT 21 mg 10- Arm Upper (Right) nitroGLYcerin 100 mcg/mL intracoronary dilution 200 mcg 200 mcg, Intra-arterial, ONCE, 1 dose, On Wed04/22/20 at 0930, IA to be admin by MD during procedure; for radial cocktail., Angio/IR (Recovery-Hospital Unit), Routine Given 04/22/2020 9:30 AM EDT 200 mcg NORepinephrine 16 mcg/mL (standard ADULT and Pedi greater than 20 kg) infusion 0-100 mcg/min (0-375 mL/hr), Intravenous, CONTINUOUS, Starting on Wed04/22/20 at 1200, Until Wed04/25/20 at 0809, Titrate to keep MAP > 65. Start at 2 mcg/min and increase by 2 mcg/min every 3 minutes until goal reached. Do not exceed 200 mcg/min. Warning Vesicant/Irritant Medication, Routine Rate/Dose Change 04/25/2020 12:00 AM EDT 2 mcg/min 7.5 mL/hr New Bag 04/24/2020 10:44 PM EDT 5 mcg/min 18.8 mL/hr Rate/Dose Verify 04/23/2020 8:00 AM EDT 0 mcg/min 0 mL/hr PHENobarbitaL (LUMINAL) injection 192.4 mg 192.4 mg (rounded from 192.3 mg = 3 mg/kg/dose ? 64.1 kg [place] weight), Intravenous, at 17.8 mL/hr, Administer over 5 Minutes, EVERY 3 HOURS, 2 doses, First dose on Wed04/22/20 at 1600, Last dose on Wed04/22/20 at 1900, Administer as slow IV Push at at rate no more than 50 mg/minute. Hold for RASS Less than -1: Not fully alert, but has sustained (more than 10 seconds) awakening, with eye contact, to voice. Hold for HR Less than 60 bpm. Hold for SBP Less than 90 mmHg., Routine Given 04/22/2020 5:21 PM EDT 192.4 mg 17.8 mL/hr PHENobarbitaL (LUMINAL) injection 256.1 mg 256.1 mg (rounded from 256.4 mg = 4 mg/kg/dose ? 64.1 kg [place] weight), Intravenous, at 23.6 mL/hr, Administer over 5 Minutes, ONCE, 1 dose, On Wed04/22/20 at 1300, Administer as slow IV Push at at rate no more than 50 mg/minute. Hold for RASS Less than -1: Not fully alert, but has sustained (more than 10 seconds) awakening, with eye contact, to voice. Hold for HR Less than 60 bpm. Hold for SBP Less than 90 mmHg., Routine Given 04/22/2020 1:41 PM EDT 256.1 mg 23.6 mL/hr PHENobarbitaL (Luminal) tablet 24.3 mg 24.3 mg (rounded from 23.076 mg = 0.36 mg/kg/dose ? 64.1 kg [place] weight), Oral, 2 TIMES DAILY, 2 doses, First dose on Wed04/24/20 at 0900, Last dose on Wed04/24/20 at 2100, Hold for RASS Less than -1: Not fully alert,but has sustained (more than 10 seconds) awakening, with eye contact, to voice. Hold for HR Less than 60 bpm. Hold for SBP Less than 90 mmHg., Routine Given 04/24/2020 8:58 PM EDT 24.3 mg PHENobarbitaL (Luminal) tablet 48.6 mg 48.6 mg (rounded from 46.152 mg = 0.72 mg/kg/dose ? 64.1 kg [place] weight), Oral, 2 TIMES DAILY, 2 doses, First dose on Wed04/23/20 at 0530, Last dose on Wed04/23/20 at 2100, Hold for RASS Less than -1: Not fully alert,but has sustained (more than 10 seconds) awakening, with eye contact, to voice. Hold for HR Less than 60 bpm. Hold for SBP Less than 90 mmHg., Routine Given 04/23/2020 9:00 PM EDT 48.6 mg piperacillin-tazobactam (ZOSYN) 3.375 g vial attach to sodium chloride 0.9% 50 mL Mini-Bag Plus 3.375 g, Intravenous, EVERY 8 HOURS, First dose on Wed04/24/20 at 0330, Until Discontinued, Administer over 4 Hours, Warning Vesicant/Irritant Medication Do not administer or Y-site with lactated ringers., Indication for (Active or Suspected): Other (See comment) New Bag 04/25/2020 3:03 AM EDT 3.375 g 12.5 mL/hr New Bag 04/24/2020 6:47 PM EDT 3.375 g 12.5 mL/hr Ce ntral Line New Bag 04/24/2020 11:25 AM EDT 3.375 g 12.5 mL/hr piperacillin-tazobactam (ZOSYN) 3.375 g vial attach to sodium chloride 0.9% 50 mL Mini-Bag Plus 3.375 g, Intravenous, EVERY 8 HOURS, 19 doses, First dose on Wed05/04/20 at 0000, Last dose on Wed05/09/20 at 1930, Administer over 4 Hours, Warning Vesicant/Irritant Medication Do not administer or Y-site with lactated ringers., Indication for (Active or Suspected): Bacteremia/Sepsis New 05/09/2020 8:12 PM EDT 3.375 g 12.5 mL/hr 05/09/2020 12:18 PM EDT 3.375 g 12.5 mL/hr New 05/09/2020 3:28 AM EDT 3.375 g 12.5 mL/hr piperacillin-tazobactam (ZOSYN) 4.5 g vial attach to sodium chloride 0.9% 100 mL Mini-Bag Plus 4.5 g, Intravenous, ONCE, 1 dose, On Wed05/03/20 at 1745, Administer over 0.5 Hours, Warning Vesicant/Irritant Medication Do not administer or Y-site with lactated ringers., Indication for (Active or Suspected): Bacteremia/Sepsis New 05/03/2020 9:52 PM EDT 4.5 g 200 mL/hr polyethylene glycoL (Miralax) packet 17 g 17 g, Oral, DAILY, First dose (after last modification) on Wed04/25/20 at 1500, Until Discontinued, Routine Given 04/27/2020 8:32 AM EDT 17 g Given 04/26/2020 8:23 AM EDT 17 g Given 04/25/2020 2:41 PM EDT 17 g potassium bicarbonate (Effer-K) effervescent tablet 20-60 mEq 20-60 mEq, Per NG tube, EVERY 4 HOURS PRN, Starting on 04/24/20 at 1051, Until 05/01/20 at 1855, hypokalemia, For serum potassium: 3.9 - 4 mMol/L = 20 mEq. 3.6 - 3.8 mMol/L = 40 mEq. 3.3 - 3.5 mMol/L = 40 mEq. 2.8 - 3.2 mMol/L = 60 mEq. Less than 2.8 = Call physician, then begin potassium chloride replacement via central or peripheral IV route. See instructions for Potassium Protocol in online policies. DO NOT GIVE UNDILUTED MEDICATION TO PATIENT. Dissolve tablet completely in 3-4 ounces of cold water or juice. May further dilute if adverse GI effects occur., Routine Given 04/29/2020 2:06 AM EDT 40 mEq Given 04/26/2020 10:07 PM EDT 40 mEq Given 04/26/2020 8:25 AM EDT 40 mEq potassium bicarbonate (Effer-K) effervescent tablet 40 mEq 40 mEq, Oral, ONCE, 1 dose, On 05/05/20 at 1115, DO NOT GIVE UNDILUTED MEDICATION TO PATIENT. Dissolve tablet completely in 3-4 ounces of cold water or juice. May further dilute if adverse GI effects occur., Routine Given 05/05/2020 11:06 AM EDT 40 mEq potassium chloride 20 mEq in 100 mL 20 mEq, Intravenous, EVERY 1 HOUR PRN, Starting on 04/20/20 at 2232, Until 04/24/20 at 1101, Administer over 60 Minutes, hypokalemia, Administer 2 doses for a serum potassium (mMol/L) of 3.3 - 3.8 See instructions for Potassium Protocol in online policies. New Bag 04/24/2020 9:06 AM EDT 20 mEq 100 mL/hr New Bag 04/24/2020 7:39 AM EDT 20 mEq 100 mL/hr New Bag 04/23/2020 6:08 AM EDT 20 mEq 100 mL/hr potassium chloride 20 mEq in 100 mL 20 mEq, Intravenous, EVERY 1 HOUR PRN, Starting on 04/20/20 at 2232, Until Wed04/24/20 at 1101, Administer over 60 Minutes, hypokalemia, Administer 3 doses for a serum potassium (mMol/L) of 2.8 - 3.2 See instructions for Potassium Protocol in online policies. 04/23/2020 1:13 AM EDT 20 mEq 100 mL/hr 04/22/2020 11:26 PM EDT 20 mEq 100 mL/hr 04/22/2020 10:27 PM EDT 20 mEq 100 mL/hr potassium chloride ER (K-Dur/Klor-Con) tablet 40 mEq 40 mEq, Oral, ONCE, 1 dose, On Wed05/07/20 at 0715, 20 mEq tablet may be dissolved in water for administration, Routine Given 05/07/2020 8:45 AM EDT 40 mEq potassium phosphate 10 mMol in sodium chloride 0.9% 100 mL 10 mmol, Intravenous, ONCE, 1 dose, On Wed05/05/20 at 1300, Administer over 4 Hours, Administer over 4-6 hours 05/05/2020 12:42 PM EDT 10 mmol potassium phosphate 15 mMol in sodium chloride 0.9% 250 mL 15 mmol, Intravenous, ONCE, 1 dose, On Wed04/22/20 at 0245, Administer over 4 Hours, Administer over 4-6 hours 04/22/2020 3:38 AM EDT 15 mmol potassium phosphate 15 mMol in sodium chloride 0.9% 250 mL 15 mmol, Intravenous, EVERY 4 HOURS, 2 doses, First dose on Wed04/23/20 at 0530, Last dose on Wed04/23/20 at 0930, Administer over 4 Hours, Administer over 4-6 hours 04/23/2020 10:19 AM EDT 15 mmol 04/23/2020 6:08 AM EDT 15 mmol potassium, sodium phosphates (Neutra-Phos) 280-160-250 mg oral packet 3 g 3 g, Per NG tube, EVERY 4 HOURS SCHEDULED, 3 doses, First dose on Wed04/25/20 at 0400, Last dose on Wed04/25/20 at 1200, Reconstitute powder with 75 mL of water. Give 1 packet with full glass of water (240 mL). , Routine Given 04/25/2020 1:32 PM EDT 3 g Given 04/25/2020 8:14 AM EDT 3 g Given 04/25/2020 4:28 AM EDT 3 g potassium, sodium phosphates (Neutra-Phos) 280-160-250 mg oral packet 3 g 3 g, Per NG tube, EVERY 4 HOURS SCHEDULED, 3 doses, First dose on 04/27/20 at 0400, Last dose on 04/27/20 at 1200, Reconstitute powder with 75 mL of water. Give 1 packet with full glass of water (240 mL). , Routine Given 04/27/2020 11:31 AM EDT 3 g Given 04/27/2020 8:31 AM EDT 3 g Given 04/27/2020 4:19 AM EDT 3 g potassium, sodium phosphates (Neutra-Phos) 280-160-250 mg oral packet 3 g 3 g, Per NG tube, EVERY 4 HOURS SCHEDULED, 3 doses, First dose (after last reorder) on 04/28/20 at 0830, Last dose on 04/28/20 at 1600, Reconstitute powder with 75 mL of water. Give 1 packet with full glass of water (240 mL). , Routine Given 04/28/2020 3:33 PM EDT 3 g Given 04/28/2020 11:39 AM EDT 3 g Given 04/28/2020 8:44 AM EDT 3 g propofol (DIPRIVAN) 10 mg/mL bolus injection (Sedation) 3.1 mg (rounded from 3.13 mg = 50 mcg/kg ? 62.6 kg), Intravenous, ONCE, 1 dose, On 04/20/20 at 2122, STAT Given 04/20/2020 9:22 PM EDT 3.1 mg propofoL (DIPRIVAN) 10 mg/mL infusion 1 dose, Starting on 04/20/20 at 2229, Until 04/20/20 at 2253, Iveth Valencia: eusebioinet override propofol (DIPRIVAN) infusion 0-50 mcg/kg/min ? 62.6 kg (0-18.78 mL/hr, rounded to 0-18.8 mL/hr), Intravenous, CONTINUOUS, Starting on 04/20/20 at 2300, Until 04/23/20 at 0938, Titrate to sedation level of RASS Goal (-)1 to 0 . Start at 20 mcg/kg/min, adjust rate by 10 mcg/kg/min every 3 minutes. Once stable, reassess patient every 30 minutes. Rate not to exceed 50 mcg/kg/minute. Change rate only after assessing and documenting RASS. Reassess sedation scores within 30 minutes after every rate change. If under sedated, increase rate by 10 mcg/kg/min. If over sedated, hold sedative until target RASS (-)1 to 0 achieved and then restart at 50% of previous rate. Call oil house attendant if goal not achieved at maximum rate. If SAT is ordered and if patient meets criteria for Spontaneous Awakening Trial, titrate per protocol., Routine Rate/Dose Verify 04/23/2020 8:00 AM EDT 0 mcg/kg/min 0 mL/hr Rate/Dose Change 04/22/2020 12:39 PM EDT 15 mcg/kg/min 5.6 mL/hr Rate/Dose Verify 04/22/2020 12:00 PM EDT 30 mcg/kg/min 11. 3 mL/hr propranolol (Inderal) (4 mg/mL) oral liquid 20 mg 20 mg, Oral, 2 TIMES DAILY, First dose on Wed04/28/20 at 1200, Until Discontinued, Routine Given 04/28/2020 8:09 PM EDT 20 mg Given 04/28/2020 11:38 AM EDT 20 mg propranolol (Inderal) (4 mg/mL) oral liquid 20 mg 20 mg, Per NG tube, ONCE, 1 dose, On [place] 04/28/20 at 2315, Routine Given 04/28/2020 11:20 PM EDT 20 mg propranolol (Inderal) (4 mg/mL) oral liquid 40 mg 40 mg, Oral, EVERY 8 HOURS SCHEDULED, First dose (after last modification) on 04/29/20 at 0600, Until Discontinued, Routine Given 05/02/2020 6:03 AM EDT 40 mg Given 05/01/2020 9:05 PM EDT 40 mg Given 05/01/2020 3:57 PM EDT 40 mg propranolol (Inderal) (4 mg/mL) oral liquid 40 mg 40 mg, Per NG tube, EVERY 8 HOURS SCHEDULED, First dose (after last modification) on [place] 05/02/20 at 1400, Until Discontinued, Routine Given 05/08/2020 5:12 AM EDT 40 mg Given 05/07/2020 9:00 PM EDT 40 mg Given 05/07/2020 2:07 PM EDT 40 mg propranolol (Inderal) (4 mg/mL) oral liquid 40 mg 40 mg, Oral, EVERY 8 HOURS SCHEDULED, First dose (after last modification) on Wed05/08/20 at 1400, Until Discontinued, Routine Given 05/10/2020 6:32 AM EDT 40 mg Given 05/09/2020 10:23 PM EDT 40 mg Given 05/09/2020 2:47 PM EDT 40 mg protein powder 2 Scoop, Per NG tube, 2 TIMES DAILY, First dose on 04/29/20 at 1330, Until Discontinued, Routine Given 05/02/2020 9:00 AM EDT 2 Scoops Given 05/01/2020 9:00 PM EDT 2 Scoops Given 05/01/2020 9:00 AM EDT 2 Scoops senna-docusate (Pericolace) 8.6-50 mg per tablet 2 tablet 2 tablet, Oral, 2 TIMES DAILY, First dose on 04/20/20 at 2300, Until Discontinued, Administer to achieve 1 soft bowel movement daily without straining, Routine Given 04/30/2020 8:46 AM EDT 2 tablets Given 04/29/2020 9:00 PM EDT 2 tablets Given 04/28/2020 8:08 PM EDT 2 tablets senna-docusate (Pericolace) 8.6-50 mg per tablet 2 tablet 2 tablet, Per NG tube, DAILY PRN, Starting on Wed05/04/20 at 0713, Until Wed05/08/20 at 1224, Constipation, Routine Given 05/05/2020 6:29 AM EDT 2 tablets senna-docusate (Pericolace) 8.6-50 mg per tablet 2 tablet 2 tablet, Oral, DAILY PRN, Starting on Wed05/08/20 at 1224, Until Wed05/10/20 at 1355, Constipation, Routine sodium chloride 0.9 % (flush) flush 5 mL 5 mL, Intravenous, 2 TIMES DAILY, First dose on 04/20/20 at 2300, Until Discontinued, Routine Given 04/24/2020 9:09 AM EDT 5 mLs Given 04/23/2020 8:47 PM EDT 5 mLs Given 04/23/2020 9:31 AM EDT 5 mLs sodium chloride 0.9% 1,000 mL IV bolus Intravenous, ONCE, 1 dose, On Wed04/21/20 at 0700 [facility] 04/21/2020 6:58 AM EDT sodium chloride 0.9% 1,000 mL IV bolus Intravenous, ONCE, 1 dose, On Wed04/24/20 at 2300 [facility] 04/24/2020 10:47 PM EDT sodium chloride 0.9% 1,000 mL with adult multivitamin 10 mL, folic acid 1 mg, thiamine 100 mg infusion at 100 mL/hr, Intravenous, ONCE, 1 dose, On 05/04/20 at 1200 [facility] 05/04/2020 1:07 PM EDT 100 mL/hr sodium chloride 0.9% 500 mL IV bolus Intravenous, ONCE, 1 dose, On Wed04/21/20 at 0430 [facility] 04/21/2020 4:13 AM EDT sodium chloride 0.9% 500 mL IV bolus Intravenous, ONCE, 1 dose, On [place] 04/21/20 at 1230 [facility] 04/21/2020 12:04 PM EDT sodium chloride 0.9% 500 mL IV bolus Intravenous, ONCE, 1 dose, On 04/23/20 at 1700 [facility] 04/23/2020 4:40 PM EDT 999 mL/hr sodium chloride 0.9% 500 mL IV bolus Intravenous, ONCE, 1 dose, On 04/27/20 at 0330 [facility] 04/27/2020 3:32 AM EDT sodium chloride 0.9% infusion 75 mL/hr, Intravenous, CONTINUOUS, Starting on 04/20/20 at 2300, Until [place] 04/25/20 at 1639 [facility] 04/25/2020 6:38 AM EDT 75 mL/hr 75 mL/hr Rate/Dose Verify 04/23/2020 6:00 AM EDT 75 mL/hr 75 mL/h r Rate/Dose Verify 04/23/2020 4:00 AM EDT 75 mL/hr 75 mL/h r sodium chloride 0.9% infusion 75 mL/hr, Intravenous, CONTINUOUS, Starting on [place] 04/25/20 at 1700, Until 04/27/20 at 0825 Rate/Dose Verify 04/27/2020 6:00 AM EDT 75 mL/hr 75 mL/hr [facility] Bag 04/27/2020 4:24 AM EDT 75 mL/hr 75 mL/hr Rate/Dose Verify 04/27/2020 4:00 AM EDT 75 mL/hr 75 mL/h r sodium chloride 0.9% infusion 100 mL/hr, Intravenous, CONTINUOUS, Starting on Wed05/03/20 at 1415, Until Wed05/03/20 at 1713 New Bag 05/03/2020 2:14 PM EDT 100 mL/hr 100 mL/hr sodium chloride 0.9% infusion 100 mL/hr, Intravenous, CONTINUOUS, Starting on Wed05/03/20 at 1730, Until 05/04/20 at 0729 Continued Bag 05/03/2020 8:00 PM EDT 100 mL/hr 100 mL/hr New Bag 05/03/2020 6:01 PM EDT 100 mL/hr 100 mL/hr sodium chloride 0.9% infusion 100 mL/hr, Intravenous, CONTINUOUS, Starting on Wed05/04/20 at 0915, Until Wed05/04/20 at 1037 New Bag 05/04/2020 9:59 AM EDT 100 mL/hr 100 mL/hr thiamine (B-1) injection 100 mg 100 mg, Intravenous, DAILY, 3 doses, First dose on Wed04/21/20 at 0900, Last dose on Wed04/23/20 at 0900, Doses of 100 mg are to be administered as IV push over 5 minutes. Doses of 200 mg or more should be mixed in 50 mL 0.9% Sodium Chloride and infused over 30 minutes. Given 04/22/2020 11:49 AM EDT 100 mg Given 04/21/2020 8:49 AM EDT 100 mg thiamine (Vitamin B1) tablet 100 mg 100 mg, Oral, DAILY, First dose on Wed04/22/20 at 1300, Until Discontinued, Routine Given 05/02/2020 9:44 AM EDT 100 mg Given 05/01/2020 9:13 AM EDT 100 mg Given 04/30/2020 8:46 AM EDT 100 mg thiamine (Vitamin B1) tablet 100 mg 100 mg, Per NG tube, DAILY, First dose (after last modification) on Wed05/03/20 at 0900, Until Discontinued, Routine Given 05/08/2020 8:14 AM EDT 100 mg Given 05/07/2020 8:45 AM EDT 100 mg Given 05/06/2020 8:36 AM EDT 100 mg thiamine (Vitamin B1) tablet 100 mg 100 mg, Oral, DAILY, First dose (after last modification) on Wed05/09/20 at 0900, Until Discontinued, Routine Given 05/10/2020 8:40 AM EDT 100 mg Given 05/09/2020 10:26 AM EDT 100 mg tube feeding diet 1,200 mL, Per NG tube, CONTINUOUS, Starting on 04/21/20 at 1215, Until Wed04/23/20 at 0739, Administer flushes and check residuals per policy, Which tube feed product? Promote, Strength: FULL Strength, Initial Rate: (mL/hr): 10, Advance by: (mL): 10, Advance every: Q4H, Goal final rate: (mL/hr): 50, Do you want to Hold Tube Feed? No Rate/Dose Verify 04/23/2020 6:00 AM EDT 50 mL /hr Rate/Dose Verify 04/23/2020 4:00 AM EDT 50 mL/h r Rate/Dose Verify 04/23/2020 2:00 AM EDT 50 mL/h r tube feeding diet 1,700 mL, Per NG tube, CONTINUOUS, Starting on Wed04/23/20 at 0800, Until 04/29/20 at 1311, Administer flushes and check residuals per policy, Which tube feed product? Promote, Strength: FULL Strength, Initial Rate: (mL/hr): 10, Advance by: (mL): 10, Advance every: Q4H, Goal final rate: (mL/hr): 85, Do you want to Hold Tube Feed? No New Bag 04/29/2020 8:44 AM EDT 1,700 mLs New Bag 04/28/2020 3:35 PM EDT 1,700 mLs Rate/Dose Verify 04/28/2020 6:00 AM EDT 85 mL/h r tube feeding diet 900 mL, Per NG tube, CONTINUOUS, Starting on Wed04/29/20 at 1330, Until Wed05/02/20 at 1511, Administer flushes and check residuals per policy, Which tube feed product? Nutren 2.0, Strength: FULL Strength, Initial Rate: (mL/hr): 10, Advance by: (mL): 10, Advance every: Q4H, Goal final rate: (mL/hr): 45, Do you want to Hold Tube Feed? No New Bag 05/02/2020 1:25 AM EDT 900 mLs 45 mL/hr Rate/Dose Verify 05/01/2020 9:32 PM EDT 43 mL/h r Rate/Dose Change 05/01/2020 7:45 PM EDT 45 mL/h r tube feeding diet 1,080 mL, Per NG tube, at 45 mL/hr, CONTINUOUS, Starting on Wed05/02/20 at 1530, Until Wed05/05/20 at 1134, Administer flushes and check residuals per policy, Which tube feed product? Nutren 2.0, Goal final rate: (mL/hr): 45, Do you want to Hold Tube Feed? No New Bag 05/03/2020 10:31 PM EDT 1,080 mLs 45 mL/hr New Bag 05/02/2020 9:39 PM EDT 1,080 mLs 45 mL/hr Continued Bag 05/02/2020 3:30 PM EDT 1,080 mLs 45 mL/hr tube feeding diet 1,080 mL, Per NG tube, at 45 mL/hr, CONTINUOUS, Starting on Wed05/05/20 at 1200, Until Wed05/08/20 at 1224, Administer flushes and check residuals per policy, Which tube feed product? Nutren 2.0, Goal final rate: (mL/hr): 45, Additional Information (if any): Hold TFs during the day. Please reinitiate TFs at night if daily PO intake is low., Do you want to Hold Tube Feed? No New Bag 05/07/2020 9:02 PM EDT 1,080 mLs 45 mL/hr Valproate (Depakene) (50 mg/mL) oral liquid 500 mg 500 mg, Oral, EVERY 8 HOURS SCHEDULED, First dose on Wed04/28/20 at 2315, Until Discontinued, Routine Given 04/30/2020 1:38 PM EDT 500 mg Given 04/30/2020 6:21 AM EDT 500 mg Given 04/29/2020 10:09 PM EDT 500 mg vancomycin 1 g in 0.9 % sodium chloride 200 mL 1 g, Intravenous, at 200 mL/hr, EVERY 8 HOURS, First dose on Wed04/24/20 at 1200, Until Discontinued, Maximum infusion rate is 1 gram/hour. If flushing of the face, neck, upper body, arms, and/or back occurs decrease infusion rate by 50% to reduce the severity of symptoms. This medication may have an associated drug lab level. Please see MAR for scheduled level. Warning Vesicant/Irritant Medication , Routine New Bag 04/25/2020 4:28 AM EDT 1 g 200 mL/hr New Bag 04/24/2020 8:00 PM EDT 1 g 200 mL/hr New Bag 04/24/2020 12:04 PM EDT 1 g 200 mL/hr vancomycin 1.5 g in sodium chloride 0.9% 250 mL 1.5 g, Intravenous, at 166.7 mL/hr, ONCE, 1 dose, On Wed04/24/20 at 0400, Maximum infusion rate is 1 gram/hour. If flushing of the face, neck, upper body, arms, and/or back occurs decrease infusion rate by 50% to reduce the severity of symptoms. This medication may have an associated drug lab level. Please see MAR for scheduled level. Warning Vesicant/Irritant Medication , Routine New Bag 04/24/2020 4:10 AM EDT 1.5 g 166.7 mL/hr vancomycin 1.5 g in sodium chloride 0.9% 250 mL 1.5 g, Intravenous, at 166.7 mL/hr, ONCE, 1 dose, On Wed05/03/20 at 1745, Maximum infusion rate is 1 gram/hour. If flushing of the face, neck, upper body, arms, and/or back occurs decrease infusion rate by 50% to reduce the severity of symptoms. This medication may have an associated drug lab level. Please see MAR for scheduled level. Warning Vesicant/Irritant Medication , Routine New Bag 05/03/2020 6:01 PM EDT 1.5 g 166.7 mL/hr vancomycin 750 mg in 0.9% sodium chloride 150 mL 750 mg, Intravenous, at 200 mL/hr, EVERY 8 HOURS, First dose on Wed05/04/20 at 0200, Until Discontinued, Maximum infusion rate is 1 gram/hour. If flushing of the face, neck, upper body, arms, and/or back occurs decrease infusion rate by 50% to reduce the severity of symptoms. This medication may have an associated drug lab level. Please see MAR for scheduled level. Warning Vesicant/Irritant Medication , Routine New Bag 05/05/2020 9:28 AM EDT 750 mg 200 mL/hr New Bag 05/05/2020 2:40 AM EDT 750 mg 200 mL/hr New Bag 05/04/2020 5:47 PM EDT 750 mg 200 mL/hr verapamiL (ISOPTIN) injection 2.5 mg 2.5 mg, Intravenous, ONCE, 1 dose, On Wed04/22/20 at 0930, Administer over 2 Minutes, IA to be admin by MD during procedure; for radial cocktail., Angio/IR (Recovery-Hospital Unit) Given 04/22/2020 9:30 AM EDT 2.5 mg 30 mL/hr documented in this encounter Active and Recently Administered Medications Times are shown in EDT. Scheduled Medication Order 05/08/2020 05/09/2020 05/10/2020 amLODIPine (Norvasc) tablet 10 mg (CANCELED) 10 mg, Per NG tube, DAILY, First dose (after last modification) on Wed05/03/20 at 0900, Until Discontinued, Routine 0812 (Given - Provider: Miguel Mendez, ANNA) amLODIPine (Norvasc) tablet 10 mg 10 mg, Oral, DAILY, First dose on Wed05/09/20 at 0900, Until Discontinued, Routine 0851 (Given - Provider: Dai Davis, ANNA) 0840 (Given - Provider: Obey Restrepo, ANNA) enoxaparin (LOVENOX) injection 40 mg 40 mg, Subcutaneous, EVERY EVENING, First dose on Wed05/02/20 at 1700, Until Discontinued, Routine 1604 (Given - Provider: Shruthi Gross) 1721 (Given - Provider: Dai Davis, ANNA) famotidine (Pepcid) tablet 40 mg (CANCELED) 40 mg, Per NG tube, DAILY, First dose on Wed04/28/20 at 0900, Until Discontinued, Routine 0811 (Given - Provider: Miguel Mendez, ANNA) famotidine (Pepcid) tablet 40 mg 40 mg, Oral, DAILY, First dose on [place] 05/09/20 at 0900, Until Discontinued, Routine 0851 (Given - Provider: Dai Davis, RN) 0839 (Given - Provider: Obey Restrepo RN) folic acid (Folvite) tablet 1,000 mcg (CANCELED) 1,000 mcg (1 mg), Per NG tube, DAILY, First dose (after last modification) on Wed05/03/20 at 0900, Until Discontinued, Routine 0813 (Given - Provider: Miguel Mendez RN) folic acid (Folvite) tablet 1,000 mcg 1,000 mcg (1 mg), Oral, DAILY, First dose (after last modification) on [place] 05/09/20 at 0900, Until Discontinued, Routine 0851 (Given - Provider: Dai Davis RN)1300 (Not Given - Provider: Dai Davis RN - Reason: See comment - Comment: given this aM) 0839 (Given - Provider: Oeby Restrepo RN) free water bolus 300 mL (CANCELED) 300 mL, Per NG tube, 4 TIMES DAILY, First dose (after last modification) on Wed05/04/20 at 0900, Until Discontinued, Routine 0815 (Given - Provider: Miguel Mendez RN) lidocaine (LIDODERM) 5 % patch 1 patch 1 patch, Transdermal, DAILY, First dose on Wed05/09/20 at 1030, Until Discontinued, Apply patch(es) for 12 hours, and then remove for 12 hours For back pain, Routine 1218 (Patch Applied - Provider: Dai Davis RN) 0900 (Not Given - Provider: Obey Restrepo RN - Reason: Patient/family refused) lisinopriL (Prinivil;Zestril) tablet 40 mg (CANCELED) 40 mg, Per NG tube, DAILY, First dose (after last modification) on Wed05/03/20 at 0900, Until Discontinued, Routine 0813 (Given - Provider: Miguel Mendez RN) lisinopriL (Prinivil;Zestril) tablet 40 mg 40 mg, Oral, DAILY, First dose (after last modification) on [place] 05/09/20 at 0900, Until Discontinued, Routine 0851 (Given - Provider: Dai Davis RN) 0839 (Given - Provider: Obey Restrepo RN) modafiniL (Provigil) tablet 100 mg (CANCELED) 100 mg, Per NG tube, 2 TIMES DAILY, First dose (after last modification) on Wed05/02/20 at 1200, Until Discontinued, Please give morning dose at 7AM, Routine 0511 (Given - Provider: Zahra Panda RN)1217 (Given - Provider: Miguel Mendez RN) modafiniL (Provigil) tablet 100 mg 100 mg, Oral, 2 TIMES DAILY, First dose (after last modification) on Wed05/09/20 at 0700, Until Discontinued, Please give morning dose at 7AM, Routine 0851 (Given - Provider: Dai Davis, ANNA)1218 (Given - Provider: Dai Davis, ANNA) 0658 (Given - Provider: Scarlett Krishnan, ANNA)1200 (Due) multivitamin with minerals (THERA-M) tablet 1 tablet 1 tablet, Oral, DAILY, First dose on Wed04/21/20 at 0900, Until Discontinued, Routine 0816 (Given - Provider: Miguel Mendez RN) 0851 (Given - Provider: Dai Davis RN) 0840 (Given - Provider: Obey Restrepo RN) nicotine (NICODERM CQ) 14 mg/24 hr patch 14 mg(Linked Group 1) 14 mg (1 patch), Transdermal, Administer over 24 Hours, DAILY, 7 doses, First dose on Wed05/09/20 at 1030, Last dose on Wed05/15/20 at 0900, Routine 1026 (Given - Provider: Dai Davis RN) 0840 (Given - Provider: Obey Restrepo, ANNA) nicotine (NICODERM CQ) 14 mg/24 hr patch Patch Removal(Linked Group 1) Transdermal, DAILY, 7 doses, First dose on Wed05/10/20 at 1015, Last dose on Wed05/16/20 at 0900, Remove nicotine 14 mg/24 hr patch 1015 (Patch Removed - Provider: Obey Restrepo RN) nicotine (NICODERM CQ) 14 mg/24 hr patch Patch Verification(Linked Group 1) Transdermal, 2 TIMES DAILY, 14 doses, First dose on Wed05/09/20 at 2215, Last dose on Wed05/16/20 at 0900, Verify nicotine 14 mg/24 hr patch. 2215 (Patch (dose and location) verified - Provider: Scarlett Krishnan RN) 0900 (Patch (dose and location) verified - Provider: Obey Restrepo RN) nicotine (NICODERM CQ) 21 mg/24 hr patch 21 mg (CANCELED)(Linked Group 2) 21 mg (1 patch), Transdermal, DAILY, First dose on [place] 05/02/20 at 1015, Until Discontinued, Routine 0816 (Patch Applied - Provider: Miguel Mendez RN) 0900 (Not Given - Provider: Herrera Garcia RN - Reason: Per MD Order) piperacillin-tazobacta m (ZOSYN) 3.375 g vial attach to sodium chloride 0.9% 50 mL Mini-Bag Plus () 3.375 g, Intravenous, EVERY 8 HOURS, 19 doses, First dose on [facility] 05/04/20 at 0000, Last dose on [place] 05/09/20 at 1930, Administer over 4 Hours, Warning Vesicant/Irritant Medication Do not administer or Y-site with lactated ringers., Indication for (Active or Suspected): Bacteremia/Sepsis 0354 (New Bag - Provider: Zahra Panda RN)0754 (Stopped - Provider: Miguel Mendez RN)1224 (New Bag - Provider: Miguel Mendez RN)1624 (Stopped - Provider: Obey Restrepo, ANNA)1802 (Canceled Entry - Provider: Cassia Mariscal RN - Reason: Entered in Error)1833 (New Bag - Provider: Obey Restrepo RN)2233 (Stopped - Provider: Scarlett Krishnan RN) 0328 (New Bag - Provider: Scarlett Krishnan RN)0728 (Stopped - Provider: Dai Davis, ANNA)1218 (New Bag - Provider: Dai Davis, ANNA)1618 (Stopped - Provider: Dai Davis, RN)2011 (New Bag - Provider: Scarlett Krishnan, ANNA)2359 (Stopped - Provider: Scarlett Krishnan RN) propranolol (Inderal) (4 mg/mL) oral liquid 40 mg (CANCELED) 40 mg, Per NG tube, EVERY 8 HOURS SCHEDULED, First dose (after last modification) on [place] 05/02/20 at 1400, Until Discontinued, Routine 0512 (Given - Provider: Zahra Panda ANNA) propranolol (Inderal) (4 mg/mL) oral liquid 40 mg 40 mg, Oral, EVERY 8 HOURS SCHEDULED, First dose (after last modification) on Wed05/08/20 at 1400, Until Discontinued, Routine 1423 (Given - Provider: Shruthi Gross)2157 (Given - Provider: Scarlett Krishnan, ANNA) 0611 (Given - Provider: Scarlett Krishnan, ANNA)1447 (Given - Provider: Dai Davis, ANNA)2223 (Given - Provider: Scarlett Krishnan, ANNA) 0632 (Given - Provider: Scarlett Krishnan, ANNA) thiamine (Vitamin B1) tablet 100 mg (CANCELED) 100 mg, Per NG tube, DAILY, First dose (after last modification) on Wed05/03/20 at 0900, Until Discontinued, Routine 0814 (Given - Provider: Miguel Mendez RN) thiamine (Vitamin B1) tablet 100 mg 100 mg, Oral, DAILY, First dose (after last modification) on Wed05/09/20 at 0900, Until Discontinued, Routine 1026 (Given - Provider: Dai Davis, ANNA) 0840 (Given - Provider: Obey Restrepo RN) PRN Medication Order 05/08/2020 05/09/2020 05/10/2020 acetaminophen (Tylenol) tablet 500 mg 500 mg, Oral, EVERY 6 HOURS PRN, Starting on Wed05/08/20 at 1222, Until Wed05/10/20 at 1355, Pain, Maximum dose of acetaminophen is 4000 mg from all sources in 24 hours., Routine 1331 (Given - Provider: Miguel Mendez RN) 2109 (Given - Provider: Scarlett Krishnan, ANNA) albuteroL 90 mcg/actuation inhaler 2 puff 2 puff, Inhalation, EVERY 6 HOURS PRN, Starting on Wed04/26/20 at 2326, Until Wed05/10/20 at 1355, Wheezing, Routine, Is there a contraindication to the patient receiving this medication as a nebulizer? Yes labetalol (NORMODYNE,TRANDATE) injection 10-20 mg 10-20 mg, Intravenous, Administer over 2 Minutes, EVERY 15 MIN PRN, Starting on 04/20/20 at 2228, Until Wed05/10/20 at 1355, High Blood Pressure, - Administer for systolic blood pressure (SBP) greater than 160 mmHg. - Administer 10 mg over 2 minutes. May repeat every 15 minutes if SBP remains above goal. - If inadequate effect with 10 mg dose then increase dose to 20 mg for subsequent dosing every 15 minutes. - Dose not to exceed 300 mg per day. Hold if pulse is less than 50 beats per minute. If Labetalol does not satisfactorily control BP within 30 minutes, consider enalaprilat or niCARdipine., Routine senna-docusate (Pericolace) 8.6-50 mg per tablet 2 tablet 2 tablet, Oral, DAILY PRN, Starting on Wed05/08/20 at 1224, Until Wed05/10/20 at 1355, Constipation, Routine Linked Groups Order Group 1: nicotine (NICODERM CQ) 14 mg/24 hr patch 14 mgJump to med 14 mg (1 patch), Transdermal, Administer over 24 Hours, DAILY, 7 doses, First dose on Wed05/09/20 at 1030, Last dose on Wed05/15/20 at 0900, Routine And nicotine (NICODERM CQ) 14 mg/24 hr patch Patch VerificationJump to med Transdermal, 2 TIMES DAILY, 14 doses, First dose on Wed05/09/20 at 2215, Last dose on Wed05/16/20 at 0900, Verify nicotine 14 mg/24 hr patch. And nicotine (NICODERM CQ) 14 mg/24 hr patch Patch RemovalJump to med Transdermal, DAILY, 7 doses, First dose on Wed05/10/20 at 1015, Last dose on Wed05/16/20 at 0900, Remove nicotine 14 mg/24 hr patch Group 2: nicotine (NICODERM CQ) 21 mg/24 hr patch 21 mg (CANCELED)Jump to med 21 mg (1 patch), Transdermal, DAILY, First dose on Wed05/02/20 at 1015, Until Discontinued, Routine And nicotine (NICODERM CQ) 21 mg/24 hr patch Patch Verification (CANCELED) Transdermal, 2 TIMES DAILY, First dose on Wed05/02/20 at 2200, Until Discontinued, Verify nicotine 21 mg/24 hr patch And nicotine (NICODERM CQ) 21 mg/24 hr patch Patch Removal (CANCELED) Transdermal, DAILY, First dose on Wed05/03/20 at 1000, Until Discontinued, Remove nicotine 21 mg/24 hr patch documented in this encounter Additional Health Concerns Infection Onset Date Last Indicated Resolved Time Rule Out COVID-19 04/20/2020 04/20/2020 04/20/2020 9:54 PM EDT Haemophilus influenza 04/23/2020 04/23/20202019 2:47 PM EDT Haemophilus influenza 04/23/2020 04/23/20202019 9:51 AM EDT documented as of this encounter 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
--- OUTSIDE RECORDS SUMMARY | 2024-07-28 22:45 | XMS_ITS | Encounter Summary ---
Author Organization [facility] [place] [address] Care Team Providers Care Space Technologist Name Role Phone None Primary Care Provider Unavailabl e Reason for Visit * Auth/Cert Specialty Diagnoses / Procedures Referred By Contac t Referred To Contact Diagnoses Intraventricular hemorrhage patient found unresponsive Referral ID Status Reason Start Date Expiration Date Visits Re quested Visits Authorized [id number] 1 1 Encounter Details Date Type Department Care Team (Late st Contact Info) Description 04/22/2020 8:54 [place] [id number] Jarret Waddell MD [facility] [place] [address] Hussein Pierre CRNA [facility] [address] [place] [address] Anesthesia Record Procedure Summary Procedure Name Responsible Anesthesiologist Anesthesia Start Time Anesthesia Stop Time @TRANSCATHETER OCCLUSION/EMBOLIZATIO N FOR TUMOR DESTRUCTION (WRVU 20.12) Jarret Waddell MD 04/22/20 0854 04/22/20 1110 Events Date Time Event Comment 04/22/2020 0812 0854 AN Verify 0854 Start 0854 An Start Data 0857 An Induction 0859 Anesthesia Ready 1057 an stop data 1110 Recovery or ICU Handoff Bharati ent care was transferred to the destination unit staff after review of the patient's medical history, current anesthetic/surgical status and plan, according to the Provider Handoff Checklist. 1110 Stop Meds Name Total Rocuronium 50 mg PHENYLephrine 320 mcg ePHEDrine 5 mg propofol (DIPRIVAN) infusion 279.82 mg niCARdipine 0.2 mg/mL (standard Adult an d Pedi greater than 20 kg) infusion 2.21 mg fentaNYL 50 mcg/mL syringe 170 mcg Lactated Ringers 400 mL * Agents Name O2 Air N2O Sevoflurane (et) * Blood No blood administrations on file. Lines, Drains, and Airways Type Details Placement Removal ETT ETT Type: Cuffed; ET T Size: 7.5 mm; ETT Placement Verified By: Capnometry, Auscultation; Secured at Teeth: 23 cm; Removal Date: 04/26/20; Removal Time: 1225 04/20/20 1755 by 04/26/20 1225 by Tai Pineda RCP NG/OG Tube 04/20/20; 1800; center mouth; Taped; 04/26/20; 1344 04/20/20 1800 by Iveth Valencia RN 04/26/20 1344 by Abrahan Freed RN (RETIRED) Peripheral IV Line - Single Lumen 04/20/20; 1817; median cubital vein (antecubital fossa), left; 18 gauge; 04/26/20; 0400 04/20/20 1817 by Vivek Rascon RN 04/26/20 0400 by Sherita Lazcano RN (RETIRED) Peripheral IV Line - Single Lumen 04/20/20; 1831; median cubital vein (antecubital fossa), right; 18 gauge; removed inadvertently; 04/24/20; 1127 04/20/20 1831 by Vivek Rascon RN 04/24/20 1127 by Zane Gaviria RN EVD (External Ventricular Drain) 04/20/20; 1999; tragus of ear; 05/01/20; 1200 04/20/201999 by Iveth Valencia RN 05/01/201199 by Sherita Lazcano RN Arterial Line 04/20/20; 2047; radial artery, left; continuous blood pressure monitoring; MD Ambrosio; Sterile Prep, Sterile Gloves; no longer indicated; 04/25/20; 1502 04/20/202047 by Vivek Rascon RN 04/25/20 1502 by Zane Gaviria RN (RETIRED) Percutaneous Central Line - Triple Lumen 04/20/20; 2049; subclavian vein, left; Ultrasound Guidance; tolerated well, other (see comments) (pt sedated); Transducer; no longer indicated; 04/27/20; 0300 04/20/202049 by Vivek Rascon RN 04/27/20 030 by Harry Malloy RN External Catheter 04/21/20; 1823; external catheter applied; drainage bag to dependent drainage; 04/27/20; 1000 04/21/20 1823 by Samuel Gómez RN 04/27/20 1000 by Cecille Amaya RN Incision 04/22/20; 0938; wrist; non-laparascopic puncture; 04/25/20; 0320 04/22/20 0938 by Stormy Oliver RN 04/25/20 0320 by Sherita Lazcano RN documented in this encounter Social History Tobacco Use Types Packs/Day Years Used Date Smoking Tobacco: Every Day Smokeless Tobacco: Never Alcohol Use Standard Drinks/Week Comments Yes 0 (1 standard drink = 0.6 oz pur e alcohol) Sex and Gender Information Value Date Recorded Sex Assigned at Not on file Gender Identity Not on file Sexual Orientation Not on file documented as of this encounter OR Notes * Anesthesia Postprocedure Evaluation - Jarret Waddell MD - 04/22/2020 4:24 PM EDT Department of Anesthesiology Post-procedure Note Patient: Ollie Burnett Sr. Procedure Summary Date: 04/22/20 Room / Location: [facility] INTERVENTIONAL RADIOLOGY / [facility] Anesthesia Start: 0854 Anesthesia Stop: 1109 Procedure: @TRANSCATHETER OCCLUSION/EMBOLIZATION FOR TUMOR DESTRUCTION (N/A ) Diagnosis: (Spontaneous IPH, access for vascular lesion (DSA only)) Surgeon: Ronda Garrison MD Responsible Provider: Jarret Waddell MD Anesthesia Type: general ASA Status: 4 All Anesthesia Providers: Anesthesiologist: Jarret Waddell MD FORMULATION TECHNICIAN: Hussein Pierre CRNA Vitals Value Taken Time BP Temp Pulse 118 04/24/2020 8:22 AM Resp 26 04/24/2020 8:24 AM SpO2 98 % 04/24/2020 8:22 AM Pain Level Vitals shown include unvalidated device data. Patient Location: PACU/[facility] Level of Consciousness: Awake and Alert Pain Management: Satisfactory Analgesia PONV: None Cardiovascular Status: At Baseline and Hemodynamically Stable Respiratory Status: At Baseline and Room Air Postoperative Fluid Status: Intravascular EUvolemia Possible Anesthetic Complications: NONE apparent at time of evaluation Final Primary Anesthesia Type: General (The anesthetic type performed was the same as planned.) Comments: Jarret Waddell MD * Anesthesia Preprocedure Evaluation - Jarret Waddell MD - 04/22/2020 8:24 AM EDT Pre-Anesthesia Evaluation for: Ollie Burnett . a 60 y.o. male. Procedure(s): @TRANSCATHETER OCCLUSION/EMBOLIZATION FOR TUMOR DESTRUCTION Patient Active Problem List Diagnosis ??? Intraventricular hemorrhage History reviewed. No pertinent past medical history. History reviewed. No pertinent surgical history. Social History Tobacco Use ??? Smoking status: Not on file Substance Use Topics ??? Alcohol use: Not on file Social History Substance and Sexual Activity Drug Use Not on file No Known Allergies Medications: MAR and/or home medications have been reviewed. Physical Exam: Most Recent Vitals: 04/22/20 0635 BP: Pulse: Resp: 13 Temp: SpO2: 100% Body mass index is 23.35 kg/m??. Height: 168 cm (5' 6.14) Weight: 65.9 kg (145 lb 4.5 oz) Airway Assessment: Mallampati: (Unable to Assess) Cardiovascular Assessment: Rhythm: regular Pulmonary Assessment: (+) decreased breath sounds Dental Assessment: Misc Assessment: Patient is wearing No contact(s). IV access: Peripheral line Anesthesia Plan: ASA 4 general, with a(n) intravenous induction Brief HPI: This is a 60 y.o. male with R BG IPH with IVH leading to hydrocephalus s/p L EVD placement now to IR for TRANSCATHETER OCCLUSION/EMBOLIZATION FOR TUMOR DESTRUCTION with dr Garrison Patient Active Problem List: Intraventricular hemorrhage (I61.5) History reviewed. No pertinent past medical history. METS:>4 Cardiac Symptoms: EKG: ECHO: LABS: Lab Results Component Value Date HGB 11.9 (L) 04/22/2020 PLATELET 129 (L) 04/22/2020 INR 1.1 04/21/2020 NA 138 04/22/2020 K 3.3 (L) 04/22/2020 CREATININE 0.54 (L) 04/22/2020 Type and Screen: Lab Results Component Value Date ABORH AB Pos 04/20/2020 Past anesthetic problems: not known Previous airway notes (on eDH): NPO status: Reviewed and appropriate Anesthetic Plan: GA with preexisting ETT, zaira, piv Monitoring: Standard ASA monitors I have seen and examined the patient. I have reviewed the medical record and pertinent laboratory information. I have noted the major medical issues to include abcd. I have reviewed risks from minor to major as outlined in the anesthesia consent form. I have highlighted risks related to abcd. The patient acknowledged These risks and would like to proceed with the anesthesia plan. Region - Other Informed Consent: Plan discussed with FORMULATION TECHNICIAN. PAT Clinic Note documented in this encounter Plan of Treatment Not on file documented as of this encounter Visit Diagnoses Not on filedocumented in this encounter Administered Medications Inactive Administered Medications - up to 3 most recent administrations Medication Order MAR Action Action Date Dose Rate Site ePHEDrine 5 mg/mL multi-dose injection PRN, Starting on Wed04/22/20 at 0952, Until Wed04/22/20 at 1132, Anesthesia Intra-op, Routine Given 04/22/2020 9:52 AM EDT 5 mg fentaNYL 50 mcg/mL syringe 0-75 mcg/hr (0-1.5 [...] AM EDT 75 mcg/hr 1.5 mL/ hr lactated ringers infusion CONTINUOUS PRN, Starting on Wed04/22/20 at 0853, Until Wed04/22/20 at 1132, Anesthesia Intra-op New Bag 04/22/2020 8:53 AM EDT niCARdipine 0.2 mg/mL (standard Adult and Pedi [...] AM EDT 10 mg/hr 50 mL/h r PHENYLephrine in NS (PF) (ZOILA-SYNEPHRINE) 0.8 mg/10 mL (80 mcg/mL) multi-dose injection Syrg PRN, Starting on Wed04/22/20 at 0854, Until Wed04/22/20 at 1132, Anesthesia Intra-op, Routine Given 04/22/2020 9:43 AM EDT 160 mcg Given 04/22/2020 8:57 AM EDT 80 mcg Given 04/22/2020 8:54 AM EDT 80 mcg propofol (DIPRIVAN) infusion 0-50 mcg/kg/min ? 62.6 kg (0-18.78 mL/hr, rounded to 0-18.8 mL/hr), Intravenous, CONTINUOUS, Starting on 04/20/20 at 2300, Until Tu04/23/20 at 0938, Titrate to sedation level of [...] restart at 50% of previous rate. Call tank house supervisor if goal not achieved at maximum rate. If SAT is ordered and if patient meets criteria for Spontaneous Awakening Trial, titrate per protocol., Routine Rate/Dose Verify 04/23/2020 8:00 AM EDT 0 mcg/kg/min 0 mL/hr Rate/Dose Change 04/22/2020 12:39 PM EDT 15 mcg/kg/min 5.6 mL/hr Rate/Dose Verify 04/22/2020 12:00 PM EDT 30 mcg/kg/min 11. 3 mL/hr rocuronium (ZEMURON) multi-dose injection PRN, Starting on Wed04/22/20 at 0857, Until Wed04/22/20 at 1132, Anesthesia Intra-op, Routine Given 04/22/2020 9:22 AM EDT 30 mg Given 04/22/2020 8:57 AM EDT 20 mg documented in this encounter Care Teams Space Technologist Relationship Specialty Start Date End Date None None PCP - General 04/20/20 05/09/20 documented as of this encounter
--- OUTSIDE RECORDS SUMMARY | 2024-07-28 22:47 | XMS_ITS | Encounter Summary ---
Author Organization [facility] Address [address] [place] [address] Care Team Providers Care Cutting And Printing Machine Operator Name Role Phone Unavailable Primary Care Provider Unavailabl e Encounter Details Date Type Department Care Team (Late st Contact Info) Description 07/06/2020 Lab Requisition [facility] Pathology & Laboratory Medicine - [facility] [address], [place] [id number] Outr Resulting Lab, Provider Social History Tobacco Use Types Packs/Day Years Used Date Smoking Tobacco: Never Assessed Sex and Gender Information Value Date Recorded Sex Assigned at Not on file Gender Identity Not on file Sexual Orientation Not on file documented as of this encounter Plan of Treatment Not on file documented as of this encounter Procedures Procedure Name Priority Date/Time Associated Diagnosis Comments HIV 1/2 ANTIGEN AND ANTIBODY, 4TH GENERATION Routine 07/05/2020 11:50 EDT documented in this encounter Results * HIV 1/2 ANTIGEN AND ANTIBODY, 4TH GENERATION (07/05/2020 11:50 EDT) HIV 1 and 2 Antibody/p24 Antigen, 4th Generation Negative Negative 07/08/2020 10:29 EDT [facility] Comment: If acute HIV-1 infection is suspected in a high risk ??patient, submit plasma specimen for HIV-1 RNA quantitation test. Fourth Generation assay performed on the Siemens Centaur. Blood VENOUS BLOOD / Unknown 07/05/2020 11:50 EDT 07/07/2020 16:43 EDT Provider Outr Resulting Lab IMMUNOLOGY A ND SEROLOGY ORDERABLES [facility] [address] [place] [address] documented in this encounter Visit Diagnoses Not on filedocumented in this encounter
--- OUTSIDE RECORDS SUMMARY | 2024-07-28 22:47 | XMS_ITS | Encounter Summary ---
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 DESIGNER Pager: [phone] Speech-Language Pathology Inpatient Rehabilitation Medicine * Plan [...] Appropriate) 04/30/20 1800 05/01/20 1800 05/03/20 0715 Matias Fall Risk History of Falling -- [...] Control Outcome: Ongoing (Interventions Implemented as Appropriate) 05/03/20 0715 05/03/20 1800 Safety Interventions Isolation Precautions -- standard precautions [...] impairment;motor/sensory impairment * Plan of Care - Brenda Cole, PT - 05/03/2020 1:10 PM EDT 05/03/20 [...] Outcome: Ongoing (Interventions Implemented as Appropriate) 05/02/20 17205/02/201999 Coping/Psychosocial Plan Of Care Reviewed With -- [...] and ADLs]: Full Surveillance [continuous indirect monitoring]: tmai Patient-specific fall prevention interventions for sensory deficits provided, if applicable: CPG GOAL OUTCOME EVALUATION: Goal: Fall Prevention-Safe Patient Handling Outcome: Ongoing (Interventions Implemented as Appropriate) 04/30/20179905/01/20179905/02/20 1800 Matias Fall Risk History of Falling -- -- -- Secondary Diagnosis -- -- -- Ambulatory Aids -- -- -- Intravenous Therapy/Heparin/Saline Lock -- -- -- Gait/Transferring -- -- -- Mental Status -- -- -- Score -- -- -- OTHER Mtaias Fall Risk -- -- -- Restraint Interventions Safety Promotion/Fall Prevention -- -- -- Positioning Body Position -- -- -- Activity Activity Type -- -- activity adjusted per tolerance;bedrest Activity Assistance Provided -- assistance, 2 people -- Assistive Device Utilized mechanical lift -- -- 05/02/20199905/03/20 0400 Matias Fall Risk History of Falling 25 [...] Control Outcome: Ongoing (Interventions Implemented as Appropriate) 05/02/20199905/03/20 0400 Safety Interventions Isolation Precautions -- standard precautions [...] Appropriate) 04/30/20 1800 05/01/20 1800 05/02/20 0800 Polly Fall Risk History of Falling -- [...] Control Outcome: Ongoing (Interventions Implemented as Appropriate) 05/01/20210405/02/20 0800 Safety Interventions Isolation Precautions -- standard [...] Number PT: 4 Patient profile: Ollie Burnett Sr. is a [...] ETT on day of eval. Lives in [place], [place]. Live in a tiny room @ [...] care Precautions/Special Considerations: Lines: tube feeds with dobhoff, brewster, flexiseal, L & RUE IV lines, [...] no c/o's Vital Signs: HR=93 SpO2=95% RA RR=215/73 ?? Patient resting in bed when I [...] not very responsive today; sleepy. Assessment: Ollie Brenna Burnett Sr. was seen today for physical [...] Minutes, Physical Therapy: 44(TE-F x 3) LEONARD DELEON PT Pager: [phone] Physical Therapy Inpatient Rehabilitation Department * Consult [...] Discussed with RN: Susanna ? Please contact Maegan Gomes RN on pager [phone] or the wound care team at [phone] or pager [phone] with skin and wound care concerns or questions. * Plan of Care - Meaghan Preston, GRAPHIC DESIGNER - 05/02/2020 9:19 AM EDT Speech Therapy [...] Pt was seen today for a follow-up GRAPHIC DESIGNER visit. Pt reportedly has some periods when [...] Speech Language Pathology: 15 Meaghan Preston MA, [facility]-GRAPHIC DESIGNER Pager: [phone] Speech-Language Pathology Inpatient Rehabilitation Medicine * Plan of Care - Joan Domínguez RN - 05/02/2020 5:08 AM EDT Problem: Patient Care Overview Goal: Plan of Care Review Outcome: Ongoing (Interventions Implemented as Appropriate) 04/25/20 1822 04/30/20 2200 Coping/Psychosocial Plan Of Care Reviewed With -- [...] Implemented as Appropriate) 04/30/20 1800 05/01/20 1800 05/01/202104 Polly Fall Risk History of Falling -- [...] Device Utilized mechanical lift -- -- 05/01/20213305/02/20399 Polly Fall Risk History of Falling -- [...] -- -- * Plan of Care - Leonard Deleon, PT - 05/01/2020 10:10 AM EDT Physical [...] ETT on ventilatorday of eval. Lives in [place], [place]. Live in a tiny room @ [...] no c/o's Vital Signs: HR=80 SpO2=97% RA SY=414/81 ?? Patient resting in bed when I [...] Discharge Disposition: inpatient rehabilitation facility, swing bed, chcf facility when medically ready for hospital discharge. [...] Minutes, Physical Therapy: 30(TE-F x 2) LEONARD DELEON, PT Pager: [phone] Physical Therapy Inpatient Rehabilitation Department * Plan of Care - Alison Arevalo, OT - 05/01/2020 9:40 AM EDT Occupational [...] Total Evaluation Minutes, Occupational Therapy: 30 Pager: [phone] Alison Arevalo OT Occupational Therapy Rehabilitation Department * Plan of Care - Meaghan Preston, GRAPHIC DESIGNER - 04/30/2020 2:37 PM EDT Speech Therapy [...] oral care Pt will benefit from continued GRAPHIC DESIGNER services while hospitalized Speech Therapy Goals: (To be met by discharge) Pt will tolerate least restrictive diet without evidence of dysphagia / aspiration. Pt / caregiver will be independent with aspiration precautions, diet modifications, and safe swallowing strategies. Plan: Therapy Frequency: 1-3 times/wk , pls page GRAPHIC DESIGNER team if pt becomes more consistently alert Pt unable to give informed agreement with plan at this time due to decreased MS. Total Evaluation Minutes, Speech Language Pathology: 15 Thank you for this consult with this patient. Please feel free to page me with any questions or concerns. Meaghan Preston MA, [facility]-GRAPHIC DESIGNER Pager: [phone] Speech-Language Pathology Inpatient Rehabilitation Medicine * Plan of Care - Farzana Montgomery RN - 04/29/2020 7:35 PM EDT Problem: Patient Care Overview Goal: Plan of Care Review Outcome: Ongoing (Interventions Implemented as Appropriate) 04/25/20182104/28/201999 Coping/Psychosocial Plan Of Care Reviewed With -- [...] Review Outcome: Ongoing (Interventions Implemented as Appropriate) 04/25/20182104/28/201999 Coping/Psychosocial Plan Of Care Reviewed With -- [...] * Plan of Care - Meaghan Preston GRAPHIC DESIGNER - 04/29/2020 3:30 PM EDT Speech-Language Pathology [...] attempt PO trials. DHT is in place. GRAPHIC DESIGNER team will continue to monitor for readiness. Meaghan Preston MA [facility]-GRAPHIC DESIGNER Inpatient Rehabilitation Medicine pager:# [phone] * Plan of Care - Leonard Deleon PT - 04/29/2020 1:32 PM EDT Physical [...] ETT on ventilatorday of eval. Lives in [place], [place]. Live in a tiny room @ [...] bed >< chair. Subjective: I live in [place] There's no weak side. Objective: Patient seen for physical therapy and demonstrated the following: Pain: no c/o's Vital Signs: HR=70 SpO2=97% Ra QU=615/66 ?? Patient resting in bed when I [...] sure he'd retain. Assessment: Ollie Ceja Hortencia Dillon was seen today for physical therapy treatment [...] Discharge Disposition: inpatient rehabilitation facility, swing bed, chcf facility when medically ready for hospital discharge. [...] Minutes, Physical Therapy: 58(TE-F x 4) LEONARD DELEON, PT Pager: [phone] Physical Therapy Inpatient Rehabilitation Department * Plan of Care - Alison Arevalo, OT - 04/29/2020 10:59 AM EDT Occupational Therapy Treatment Note Treatment Number OT: 2 Patient Dx: Ollie Burnett SrTony is a 60 y.o. male with R [...] -remains extubated -lethargic Wednesday evening--stat head CT, and 4th appear open -left frontal EVD [...] Total Evaluation Minutes, Occupational Therapy: 40 Pager: [phone] Alison Arevalo OT Occupational Therapy Rehabilitation Department * Consult Note - Lu Niño MD - 04/29/2020 7:44 AM EDT Neurology Vascular Consult Note Patient name: Ollie Burnett . Date of : 1960 [...] Negative mcL Appearance UA Clear Clear Spec [place] UA 1.019 1.006 - 1.030 Color UA [...] - EVD management as per NSGY - PT/OT/GRAPHIC DESIGNER Protocol for Delirious Patients: - Orientation: ?- [...] PGY3 Neurology Resident 04/29/2020 Vascular Neurology Pager [phone] Standard [facility] Swallow Screen: This screen is to be [...] diet as medical provider deems appropriate. Consider GRAPHIC DESIGNER consult for full evaluation and diet recommendations. ??? If NO to any of the responses, stop immediately, keep patient NPO and notify physician. * Plan of Care - Celia Crowley RN - 04/28/2020 4:07 PM EDT Problem: Patient Care Overview Goal: Plan of Care Review Outcome: Ongoing (Interventions Implemented as Appropriate) 04/28/20 0800 Coping/Psychosocial Plan Of Care Reviewed With patient [...] Handling Outcome: Ongoing (Interventions Implemented as Appropriate) 04/26/20199904/28/2079904/28/20 1200 Polly Fall Risk History of Falling [...] Outcome: Ongoing (Interventions Implemented as Appropriate) 04/28/20 0804/28/20 1400 Safety Interventions Isolation Precautions -- standard [...] Pt remains on ventilator support, sedation increased. GRAPHIC DESIGNER will sign off at this point, please reconsult upon successful extubation. Thank you. Emelina Valdez MS, [facility]-GRAPHIC DESIGNER Inpatient Rehabilitation Medicine pager:# [phone] * Plan of Care - Zane Gaviria RN - 04/24/2020 6:03 PM EDT Problem: Patient Care Overview Goal: Plan of Care Review Outcome: Ongoing (Interventions Implemented as Appropriate) 04/24/20 1754 Coping/Psychosocial Plan Of Care Reviewed With patient [...] GOAL OUTCOME EVALUATION: * Consult Note - Selma Chairez LPN - 04/24/2020 12:22 PM EDT Images from the original note were not included. VAS into place IV. Spoke to RN regarding patient central line, sub clavian. It has some redness, however it looks irritated skin. Does look appear to be infected, no signs of drainage at this time. Patient has multiple areas of redness on his skin. * Plan of Care - Leonard Deleon PT - 04/24/2020 11:25 AM EDT Physical Therapy Evaluation Patient profile: Ollie Burnett is a 60 y.o. right handed male [...] Laterality Date ??? PRO PERM OCCLUSION/EMBOLIZATION, PERCUT, ACCORDION TUNER N/A 04/22/2020 @TRANSCATHETER OCCLUSION/EMBOLIZATION FOR TUMOR DESTRUCTION performed by Ronda Garrison MD at [facility] There are no active non-hospital problems to display for this patient. Social History: Info obtained from chart & SW note as patient non-verbal with ETT on ventilatorcurrently. Lives in [place], [place]. Live in a tiny room @ [...] today. Pain: no obvious signs Vital Signs: MC=403 SpO2=98% BP= 121/44 Vent: PS/CPAP 5/10/30% Mental [...] encouraged to wipe his face with facecloth: [id number] assist but he did hold cloth in [...] Discharge Disposition: inpatient rehabilitation facility, swing bed, chcf facility when medically ready for hospital discharge. Consult Recommendations: CM for d/c referrals Equipment needs: TBD @ rehab facility; ongoing Goals: To be achieved by 6-20-20: 1. Pt able to stay alert with [...] Physical Therapy: 40(EV) LEONARD DELEON, PT Pager: [phone] Physical Therapy Inpatient Rehabilitation Department * Plan of Care - Emelina Valdez, GRAPHIC DESIGNER - 04/24/2020 11:00 AM EDT Speech-Language Pathology Contact Note Pt remains on ventilator support, GRAPHIC DESIGNER will monitor for appropriateness. Please page if needed sooner. Emelina Valdez MS, CCC-GRAPHIC DESIGNER Inpatient Rehabilitation Medicine pager:# [phone] * Plan of Care - MickeyDarius eppersonie Eula, OT - 04/24/2020 10:45 AM EDT Occupational [...] Laterality Date ??? PRO PERM OCCLUSION/EMBOLIZATION, PERCUT, ACCORDION TUNER N/A 04/22/2020 @TRANSCATHETER OCCLUSION/EMBOLIZATION FOR TUMOR DESTRUCTION performed by Ronda Garrison MD at [facility] Social History: Patient lives in a boarding [...] been seen for occupational therapy evaluation. Ollie Burnett Sr. presents with the following performance skill deficits [...] planning. Total Evaluation Minutes, Occupational Therapy: 40 2017 OT Evaluation Code Rationale: ?? Diagnosis & [...] and measurable assessment of functional outcome. Pager: [phone] Alison Arevalo OT 04/25/2020 Occupational Therapy Rehabilitation [...] neurologic deterioration * Consult Note - Hussein Carnes, [facility] - 04/24/2020 3:50 AM EDT Clinical Pharmacist Note-Vanc Ollie Ceja Burnett Sr. [id number] 1960 Ollie Ceja Burnett SrTony is a 60 y.o. male who is [...] cm (5' 6.14) No results found for: HEAVENOTR Creatinine (mg/dL) Date Value 04/24/2020 0.45 (L) [...] have. Alternately, during off-hours you may call [phone] to contact a pharmacist. HUSSEIN CARNES RPH [...] nicardipine throughout shift (see MAR), 500cc bolus orwna2r for low MAP, daughter updated by phone. [...] documented. * Plan of Care - Leonard Deleon PT - 04/23/2020 1:27 PM EDT Physical Therapy Contact note I spoke with OT who spoke with QUALITY FACILITATOR in room, QUALITY FACILITATOR having difficulty arousing patient, team reports earlier he was responsive and passed SBT, possible extubation today. Plan to monitor and if appropriate tomorrow will plan to evaluate. Hospital day #3 after being found down with pgae HURT and found to have IVH, hydrocephalus: EVD placed. DSA yesterday didn't show any aneurysm or AVM and head CT stable, vEEG not showing seizures, on phenobarbital for ETOH withdrawals. Appreciate referral, continue to monitor his status, once he's able to participate will intervene. Pager #[phone] * Initial Assessments - Rachele Cole MSW - 04/23/2020 10:46 AM EDT Office of Care Management Initial Assessment KYE Kiran reviewed record and discussed patient with Care Team. Source of Information: Patient's daughter, Susanna [phone] Introduced self/reviewed role; services accepted. Reason for [...] wondering what patient's current brain function is. PULL TAB DEALER encouraged her to ask the team this [...] MEDICAID [place] Prescription Coverage: yes Preferred Pharmacy: [facility] Education Other: Primary Care Provider: None None Patient/Caregiver Goals of Treatment: Wake up and get better Potential Needs for Transition of Care: Rehab/SNF: yes, no choices obtained currently Home Health: no DME: no Dialysis: no Community Resources: ? Substance abuse resources (possible) and LT Medicaid Transportation: TBD Other: Anticipated Barriers to [...] needs once patient awake (referral for BIT, LTC Medicaid, etc) A member of the Care Management team will continue to monitor progress, follow for continuity of care and assist with transition of care planning. KYE Kiran Pager: [phone] * Plan of Care - Emelina Valdez GRAPHIC DESIGNER - 04/23/2020 9:09 AM EDT Speech-Language Pathology Contact Note Pt remains on ventilator support, passed SBT again this AM. GRAPHIC DESIGNER will hold assessment until successful extubation, please page if needed sooner. Emelina Valdez MS, [facility]-GRAPHIC DESIGNER Inpatient Rehabilitation Medicine pager:# [phone] * Plan of Care - Pratima Ward [...] to care for the patient. NCC provider andNeuro Sx at the bedside many times overnight to [...] Handling Outcome: Ongoing (Interventions Implemented as Appropriate) 04/22/20199904/23/20 0400 Matias Fall Risk History of Falling 25 [...] Control Outcome: Ongoing (Interventions Implemented as Appropriate) 04/22/20199904/23/20 040 Safety Interventions Isolation Precautions -- standard precautions maintained Infection Prevention -- environmental surveillance performed;rest/sleep promoted;single patient room provided Coping Strategies Supportive Measures positive reinforcement provided -- Goal: Discharge Needs Assessment Outcome: Ongoing (Interventions Implemented as Appropriate) 04/23/20 0547 Discharge Needs Assessment Concerns To Be Addressed care coordination/care conferences Goal: Interdisciplinary Rounds/Family Conf Outcome: Ongoing (Interventions Implemented as Appropriate) 04/23/20 0547 Interdisciplinary Rounds/Family Conf Participants patient;advanced practice nurse;nursing * Plan of Care - Zane Gaviria RN - 04/22/2020 7:03 PM EDT Problem: Patient Care Overview Goal: Plan of Care Review Outcome: Ongoing (Interventions Implemented as Appropriate) 04/22/20 4314 Coping/Psychosocial Plan Of Care Reviewed With patient [...] overnight. * Plan of Care - Leonard Deleon, PT - 04/22/2020 1:17 PM EDT Physical [...] of Care - Emelina Valdez SLP - 04/22/2020 9:12 AM EDT Speech-Language Pathology Contact Note Consult received, chart reviewed, pt remains on ventilator support and apparently scheduled for procedure in IR. Passed SBT this AM. GRAPHIC DESIGNER will monitor for appropriateness, please page if needed sooner. Emelina Valdez MS, [facility]-GRAPHIC DESIGNER Inpatient Rehabilitation Medicine pager:# [phone] * Plan of Care - Jayda Davis RN - 04/22/2020 7:46 AM EDT Problem: Patient Care Overview Goal: Plan of Care Review Outcome: Ongoing (Interventions Implemented as Appropriate) 04/21/20165304/21/201999 Coping/Psychosocial Plan Of Care Reviewed With -- [...] Review Outcome: Ongoing (Interventions Implemented as Appropriate) 04/21/201653 Coping/Psychosocial Plan Of Care Reviewed With patient;family [...] file Gets together: Not on file Attends quaker service: Not on file Active member of [...] RNA Not Detected Not Detected SARS-CoV-2 Source SOCIAL MEDIA CONTENT SPECIALIST Swab Urinalysis with reflex Culture Result Value Ref Range Glucose UA Negative Negative mg/dL Protein UA Negative Negative mg/dL Bilirubin UA Negative Negative mg/dL Urobilinogen UA Normal Normal mg/dL pH UA 5.5 5.0 - 8.0 Blood UA Large (A) Negative mg/dL Ketones UA 40 (A) Negative mg/dL Nitrite UA Negative Negative Leukocytes UA Negative Negative mcL Appearance UA Clear Clear Spec [place] UA >=1.030 (A) 1.006 - 1.030 Color [...] - EVD management as per NSGY - PT/OT/GRAPHIC DESIGNER Fanny Paz MD PGY3 Neurology Resident 04/21/2020 Vascular Neurology Pager [phone] Standard [facility] Swallow Screen: This screen is to be [...] diet as medical provider deems appropriate. Consider GRAPHIC DESIGNER consult for full evaluation and diet recommendations. [...] Equal pupils. R LE voluntary movements +. Matrix Plater to command. No significant vascular lesions on CTA. UDS + EVD pressure normal. Close neurologic monitoring. Thor Garcia MD Department of Neurology [facility] * Plan of Care - Meaghan Preston GRAPHIC DESIGNER - 04/21/2020 11:09 AM EDT Speech-Language Pathology Consult Note Order received. Pt remains on vent at this time. GRAPHIC DESIGNER team will continue to monitor. Meaghan Preston MA [facility]-GRAPHIC DESIGNER Inpatient Rehabilitation Medicine pager:# [phone] * Plan of Care - Iveth Valencia [...] required during toileting and ADLs]: Purposeful rounding, RN/HOME THEATER EXPERIENCE EXPERT assist Surveillance [continuous indirect monitoring]: Tami monitor [...] to the planned procedure. Hand Hygiene: The coiled coil inspector did perform hand hygiene prior to arterial [...] stored and uploaded to secure review platform (Plisten). I performed the following procedure(s): central venous [...] ANTIGEN Routine 05/03/2020 4:36 PM EDT HC ACCORDION TUNER CULTURE Routine 05/03/2020 4:36 PM EDT HC [...] 04/22/2020 11:01 AM EDT Perm Occlusion/Embolization , Percut, Merchandising Execution Manager ([id number]) 04/22/2020 8:54 AM EDT Spontaneous IPH, access [...] 04/20/2020 6:09 PM EDT RAPID COVID-19 PCR ([facility]) STAT 04/20/2020 6:08 PM EDT URINALYSIS MICROSCOPIC EXAM STAT 04/20/2020 6:08 PM EDT URINALYSIS WITH REFLEX CULTURE STAT 04/20/2020 6:[address] SQUAXIN OF [place] W CONTRAST STAT 04/20/2020 5:48 [...] 9:31 AM EDT) Neutrophil % 56.0 % [facility] Neutrophil Absolute 4.18 1.70 - 6.10 x10(3)/[facility] Lymph % 29.3 % [facility] Lymphocytes Abs 2.2 0.9 - 3.2 x10(3)/[facility] Monocyte % 11.0 % [facility] Monocyte Abs 0.8 0.3 - 0.9 x10(3)/[facility] Eos % 2.5 % [facility] Eosinophils Abs 0.2 0.0 - 0.4 x10(3)/[facility] Basophil % 0.7 % [facility] Baso Absolute 0.0 0.0 - 0.1 x10(3)/[facility] Immature Gran % 0.50 % [facility] Comment: Immature granulocytes(IG's)percentage and absolute count will include metamyelocytes, myelocytes, and promyelocytes. Blood smears from CBCs yielding IG's will be scanned manually for concordance. If this scan disagrees with the automated IG or if promyelocytes are noted, a manual differential will be performed. Immature Gran Absolute 0.04 0.00 - 0.04 x10(3)/[facility] Blood specimen (specimen) 05/09/2020 9:31 AM EDT 05/09/2020 10:01 AM EDT Narrative Resulting Agency Comment Spec In Lab Lu Niño MD HEMATOLOGY ORDERABLE S [facility] [place] [address] * (ABNORMAL) Hemogram (05/09/2020 9:31 AM EDT) White Blood Cell 7.5 4.0 - 9.5 x10(3)/ L [facility] Red Blood Cell 3.82(L) 4.58 - 5.54 x10(6)/ L [facility] Hemoglobin 12.9(L) 13.7 - 16.5 gm/dL [facility] Hematocrit 37.8(L) 40.5 - 48.5 % [facility] Mean Cell Volume 99.0(H) 82.9 - 93.1 fL [facility] Mean Cell Hemoglobin 33.8(H) 27.5 - 32.1 pg [facility] Mean Cell Hemoglobin Concentration 34.1 32.0 - 35.7 gm/dL [facility] Platelet 506(H) 145 - 357 x10(3)/ L [facility] RDW Standard Deviation 47.4(H) 36.0 - 45.0 fL [facility] RDW coefficient of variation 13.3 11.4 - 13.8 % [facility] Mean Platelet Volume 9.1 7.6 - 12.9 [facility] NRBC% auto 0.0 % [facility] NRBC Absolute 0.000 0.000 - 0.000 x10(3)/mc L [facility] Blood specimen (specimen) 05/09/2020 9:31 AM EDT 05/09/2020 10:01 AM EDT Narrative Resulting Agency Comment Spec In Lab Lu Niño MD HEMATOLOGY ORDERABLE S Performing Organization Address [facility] Co de Phone Number [facility] [place] [address] * (ABNORMAL) Hepatic Function Panel (05/09/2020 9:31 AM EDT) Protein, Total 6.8 6.1 - 8.0 gm/dL [facility] Albumin 3.2 3.2 - 5.2 gm/dL [facility] Aspartate Aminotransferase 73(H) 0 - 39 unit/L [facility] Alanine Aminotransferase 118(H) 0 - 55 unit/L [facility] Alkaline Phosphatase 90 40 - 130 unit/L [facility] Bilirubin, Total 0.5 0.2 - 1.3 mg/dL [facility] Bilirubin, Direct 0.2 0.0 - 0.3 mg/dL [facility] Blood specimen (specimen) 05/09/2020 9:31 AM EDT 05/09/2020 10:01 AM EDT Narrative Resulting Agency Comment Spec In Lab Casey Jiménez MD CHEMISTRY ORDERABL ES Performing Organization Address City/[facility]/ZIP Co de Phone Number [facility] [place] [address] * (ABNORMAL) Hepatic Function Panel (05/09/2020 5:29 AM EDT) Pathologist [facility] Protein, Total 7.1 6.1 - 8.0 gm/dL [facility] Albumin 3.3 3.2 - 5.2 gm/dL [facility] Aspartate Aminotransferase Not Perf 0 - 39 [facility] Comment: Unable to quantitate due to sample hemolysis. ??Sample redraw suggested. Called by: PHIL, Read back by: Herrera Garcia, Date/Time:05/09/20 07:46. Alanine Aminotransferase 122(H) 0 - 55 unit/L [facility] Alkaline Phosphatase 92 40 - 130 unit/L [facility] Bilirubin, Total 0.6 0.2 - 1.3 mg/dL [facility] Bilirubin, Direct 0.2 0.0 - 0.3 mg/dL [facility] Blood specimen (specimen) 05/09/2020 5:29 AM EDT 05/09/2020 6:54 AM EDT Narrative Resulting Agency Comment Spec In Lab Lynnette Khan MANUFACTURING DIRECTOR CHEMISTRY ORDERAB LES Performing Organization Address City/[facility]/ZIP Co de Phone Number [facility] [place] [address] * Phosphorus (05/09/2020 5:29 AM EDT) [facility] Phosphorus 2.8 2.5 - 4.5 mg/dL [facility] Blood specimen (specimen) 05/09/2020 5:29 AM EDT 05/09/2020 6:54 AM EDT Narrative Resulting Agency Comment Spec In Lab Lynnette Khan MANUFACTURING DIRECTOR CHEMISTRY ORDERAB LES Performing Organization Address City/[facility]/ZIP Co de Phone Number [facility] [place] [address] * Magnesium (05/09/2020 5:29 AM EDT) Pathologist [facility] Magnesium 0.85 0.69 - 1.07 mmol/L [facility] Blood specimen (specimen) 05/09/2020 5:29 AM EDT 05/09/2020 6:54 AM EDT Narrative Resulting Agency Comment Spec In Lab Lynnette Khan MANUFACTURING DIRECTOR CHEMISTRY ORDERAB LES [facility] [place] [address] * (ABNORMAL) Basic Metabolic Panel (non-fasting) (05/09/2020 5:29 AM EDT) Glucose Not Perf 65 - 199 [facility] Comment: Sample improperly processed prior to receipt. Diabetes: >=200 mg/dL plus symptoms Blood Urea Nitrogen 14 10 - 20 mg/dL [facility] Creatinine 0.53(L) 0.80 - 1.50 mg/dL [facility] Sodium 136 135 - 145 mmol/L [facility] Potassium 4.2 3.5 - 5.0 mmol/L [facility] Comment: Please note: ??Patients with WBC >100,000 may have falsely elevated Potassium levels. ??For accurate Potassium quantification in these patients send serum separator tube (gold top) for subsequent determinations. ??Contact the Clinical Chemistry Laboratory if there are any questions. Chloride 102 98 - 107 mmol/L [facility] Carbon Dioxide 21(L) 22 - 31 mmol/L [facility] Anion Gap 13 5 - 15 mmol/L [facility] Calcium 8.6 8.5 - 10.5 mg/dL [facility] Est Glomerular Filtration Rate 114 >=60 mL/min/1. 73 m?? [facility] Comment: The eGFR was calculated using the CKD-EPI equation. As with all creatinine based estimates of kidney function, eGFR values calculated with the CKD-EPI equation are not accurate in patients with acute kidney failure, extremes of body mass or the acutely ill. [email or web address] eGFR 132 >=60 mL/min/1. 73 m?? [facility] Comment: The eGFR was calculated using the CKD-EPI equation. As with all creatinine based estimates of kidney function, eGFR values calculated with the CKD-EPI equation are not accurate in patients with acute kidney failure, extremes of body mass or the acutely ill. [email or web address] Blood specimen (specimen) 05/09/2020 5:29 AM EDT 05/09/2020 6:54 AM EDT Narrative Resulting Agency Comment Spec In Lab Lynnette Khan MANUFACTURING DIRECTOR CHEMISTRY ORDERAB LES [facility] [place] [address] * Differential, Automated (05/08/2020 5:42 AM EDT) Neutrophil % 60.4 % [facility] Neutrophil Absolute 5.04 1.70 - 6.10 x10(3)/[facility] Lymph % 26.8 % [facility] Lymphocytes Abs 2.2 0.9 - 3.2 x10(3)/[facility] Monocyte % 9.2 % [facility] Monocyte Abs 0.8 0.3 - 0.9 x10(3)/[facility] Eos % 2.5 % [facility] Eosinophils Abs 0.2 0.0 - 0.4 x10(3)/[facility] Basophil % 0.6 % [facility] Baso Absolute 0.0 0.0 - 0.1 x10(3)/[facility] Immature Gran % 0.50 % [facility] Comment: Immature granulocytes(IG's)percentage and absolute count will include metamyelocytes, myelocytes, and promyelocytes. Blood smears from CBCs yielding IG's will be scanned manually for concordance. If this scan disagrees with the automated IG or if promyelocytes are noted, a manual differential will be performed. Immature Gran Absolute 0.04 0.00 - 0.04 x10(3)/[facility] Blood specimen (specimen) 05/08/2020 5:42 AM EDT 05/08/2020 5:52 AM EDT Narrative Resulting Agency Comment Spec In Lab Lynnette Khan MANUFACTURING DIRECTOR HEMATOLOGY ORDERA BLES [facility] [place] [address] * (ABNORMAL) Hemogram (05/08/2020 5:42 AM EDT) White Blood Cell 8.4 4.0 - 9.5 x10(3)/[facility] Red Blood Cell 3.76(L) 4.58 - 5.54 x10(6)/[facility] Hemoglobin 12.6(L) 13.7 - 16.5 gm/dL [facility] Hematocrit 37.2(L) 40.5 - 48.5 % [facility] Mean Cell Volume 98.9(H) 82.9 - 93.1 [facility] Mean Cell Hemoglobin 33.5(H) 27.5 - 32.1 pg [facility] Mean Cell Hemoglobin Concentration 33.9 32.0 - 35.7 gm/dL [facility] Platelet 468(H) 145 - 357 x10(3)/[facility]ATORY RDW Standard Deviation 47.8(H) 36.0 - 45.0 [facility] RDW coefficient of variation 13.2 11.4 - 13.8 % [facility] Mean Platelet Volume 9.1 7.6 - 12.9 [facility] NRBC% auto 0.0 % [facility] NRBC Absolute 0.000 0.000 - 0.000 x10(3)/ L [facility] Blood specimen (specimen) 05/08/2020 5:42 AM EDT 05/08/2020 5:52 AM EDT Narrative Resulting Agency Comment Spec In Lab Lynnette Louisa Khan MANUFACTURING DIRECTOR HEMATOLOGY ORDERA BLES Performing Organization Address City/[facility] Co de Phone Number [facility] [place] [address] * (ABNORMAL) Hepatic Function Panel (05/08/2020 5:42 AM EDT) Protein, Total 6.7 6.1 - 8.0 gm/dL [facility] Albumin 2.9(L) 3.2 - 5.2 gm/dL [facility] Aspartate Aminotransferase 88(H) 0 - 39 unit/L [facility] Alanine Aminotransferase 144(H) 0 - 55 unit/L [facility] Alkaline Phosphatase 94 40 - 130 unit/L [facility] Bilirubin, Total 0.6 0.2 - 1.3 mg/dL [facility] Bilirubin, Direct 0.2 0.0 - 0.3 mg/dL [facility] Blood specimen (specimen) 05/08/2020 5:42 AM EDT 05/08/2020 5:52 AM EDT Narrative Resulting Agency Comment Spec In Lab Lynnette Khan MANUFACTURING DIRECTOR CHEMISTRY ORDERAB LES Performing Organization Address [facility] Co de Phone Number [facility] [place] [address] * Phosphorus (05/08/2020 5:42 AM EDT) Phosphorus 2.8 2.5 - 4.5 mg/dL [facility] Blood specimen (specimen) 05/08/2020 5:42 AM EDT 05/08/2020 5:52 AM EDT Narrative Resulting Agency Comment Spec In Lab Lynnette Cornellmont MANUFACTURING DIRECTOR CHEMISTRY ORDERAB LES Performing Organization Address City/[facility]/ZIP Co de Phone Number [facility] [place] [address] * Magnesium (05/08/2020 5:42 AM EDT) Magnesium 0.87 0.69 - 1.07 mmol/L [facility] Blood specimen (specimen) 05/08/2020 5:42 AM EDT 05/08/2020 5:52 AM EDT Narrative Resulting Agency Comment Spec In Lab Lynnette Khan MANUFACTURING DIRECTOR CHEMISTRY ORDERAB LES [facility] [place] [address] * (ABNORMAL) Basic Metabolic Panel (non-fasting) (05/08/2020 5:42 AM EDT) Glucose 139 65 - 199 mg/dL [facility] Comment:Diabetes: >=200 mg/d L plus symptoms Blood Urea Nitrogen 18 10 - 20 mg/dL [facility] Creatinine 0.49(L) 0.80 - 1.50 mg/dL [facility] Sodium 137 135 - 145 mmol/L [facility] Potassium 3.7 3.5 - 5.0 mmol/L [facility] Comment: Please note: ??Patients with WBC >100,000 may have falsely elevated Potassium levels. ??For accurate Potassium quantification in these patients send serum separator tube (gold top) for subsequent determinations. ??Contact the Clinical Chemistry Laboratory if there are any questions. Chloride 103 98 - 107 mmol/L [facility] Carbon Dioxide 23 22 - 31 mmol/L [facility] Anion Gap 11 5 - 15 mmol/L [facility] Calcium 8.5 8.5 - 10.5 mg/dL [facility] Est Glomerular Filtration Rate 118 >=60 mL/min/1. 73 m?? [facility] Comment: The eGFR was calculated using the CKD-EPI equation. As with all creatinine based estimates of kidney function, eGFR values calculated with the CKD-EPI equation are not accurate in patients with acute kidney failure, extremes of body mass or the acutely ill. [email or web address] eGFR 137 >=60 mL/min/1. 73 m?? [facility] Comment: The eGFR was calculated using the CKD-EPI equation. As with all creatinine based estimates of kidney function, eGFR values calculated with the CKD-EPI equation are not accurate in patients with acute kidney failure, extremes of body mass or the acutely ill. [email or web address] Blood specimen (specimen) 05/08/2020 5:42 AM EDT 05/08/2020 5:52 AM EDT Narrative Resulting Agency Comment Spec In Lab Lynnetet Khan APRN CHEMISTRY ORDERAB LES [facility] [place] [address] * Differential, Automated (05/07/2020 4:42 AM EDT) Neutrophil % 63.7 % [facility] Neutrophil Absolute 4.65 1.70 - 6.10 x10(3)/[facility] Lymph % 23.0 % [facility] Lymphocytes Abs 1.7 0.9 - 3.2 x10(3)/[facility] Monocyte % 10.1 % [facility] Monocyte Abs 0.7 0.3 - 0.9 x10(3)/[facility] Eos % 2.3 % [facility] Eosinophils Abs 0.2 0.0 - 0.4 x10(3)/[facility] Basophil % 0.4 % [facility] Baso Absolute 0.0 0.0 - 0.1 x10(3)/[facility] Immature Gran % 0.50 % [facility] Comment: Immature granulocytes(IG's)percentage and absolute count will include metamyelocytes, myelocytes, and promyelocytes. Blood smears from CBCs yielding IG's will be scanned manually for concordance. If this scan disagrees with the automated IG or if promyelocytes are noted, a manual differential will be performed. Immature Gran Absolute 0.04 0.00 - 0.04 x10(3)/mcL [facility] Blood specimen (specimen) 05/07/2020 4:42 AM EDT 05/07/2020 5:03 AM EDT Narrative Resulting Agency Comment Spec In Lab Lynnette Khan MANUFACTURING DIRECTOR HEMATOLOGY ORDERA BLES [facility] [place] [address] * (ABNORMAL) Hemogram (05/07/2020 4:42 AM EDT) White Blood Cell 7.3 4.0 - 9.5 x10(3)/mc L [facility] Red Blood Cell 3.76(L) 4.58 - 5.54 x10(6)/mc L [facility] Hemoglobin 12.7(L) 13.7 - 16.5 gm/dL [facility] Hematocrit 37.6(L) 40.5 - 48.5 % [facility] Mean Cell Volume 100.0(H) 82.9 - 93.1 fL [facility] Mean Cell Hemoglobin 33.8(H) 27.5 - 32.1 pg [facility] Mean Cell Hemoglobin Concentration 33.8 32.0 - 35.7 gm/dL [facility] Platelet 471(H) 145 - 357 x10(3)/mc L [facility] RDW Standard Deviation 47.6(H) 36.0 - 45.0 [facility] RDW coefficient of variation 13.1 11.4 - 13.8 % [facility] Mean Platelet Volume 9.2 7.6 - 12.9 [facility] NRBC% auto 0.0 % [facility] NRBC Absolute 0.000 0.000 - 0.000 x10(3)/mc L [facility] Blood specimen (specimen) 05/07/2020 4:42 AM EDT 05/07/2020 5:03 AM EDT Narrative Resulting Agency Comment Spec In Lab Lynnette Khan MANUFACTURING DIRECTOR HEMATOLOGY ORDERA BLES Performing Organization Address [facility] Co de Phone Number [facility] [place] [address] * (ABNORMAL) Hepatic Function Panel (05/07/2020 4:42 AM EDT) Protein, Total 7.0 6.1 - 8.0 gm/dL [facility] Albumin 3.1(L) 3.2 - 5.2 gm/dL [facility] Aspartate Aminotransferase 151(H) 0 - 39 unit/L [facility] Alanine Aminotransferase 173(H) 0 - 55 unit/L [facility] Alkaline Phosphatase 89 40 - 130 unit/L [facility] Bilirubin, Total 0.8 0.2 - 1.3 mg/dL [facility] Bilirubin, Direct 0.3 0.0 - 0.3 mg/dL [facility] Blood specimen (specimen) 05/07/2020 4:42 AM EDT 05/07/2020 5:03 AM EDT Narrative Resulting Agency Comment Spec In Lab Lynnette Khan MANUFACTURING DIRECTOR CHEMISTRY ORDERAB LES Performing Organization Address [facility]/ZIP Co de Phone Number [facility] [place] [address] * Phosphorus (05/07/2020 4:42 AM EDT) Phosphorus 3.0 2.5 - 4.5 mg/dL [facility] Blood specimen (specimen) 05/07/2020 4:42 AM EDT 05/07/2020 5:03 AM EDT Narrative Resulting Agency Comment Spec In Lab Lynnette Khan MANUFACTURING DIRECTOR CHEMISTRY ORDERAB LES Performing Organization Address City/[facility]/ZIP Co de Phone Number [facility] [place] [address] * Magnesium (05/07/2020 4:42 AM EDT) Magnesium 0.81 0.69 - 1.07 mmol/L [facility] Blood specimen (specimen) 05/07/2020 4:42 AM EDT 05/07/2020 5:03 AM EDT Narrative Resulting Agency Comment Spec In Lab Lynnette Khan MANUFACTURING DIRECTOR CHEMISTRY ORDERAB LES Performing Organization Address [facility] Co de Phone Number [facility] [place] [address] * (ABNORMAL) Basic Metabolic Panel (non-fasting) (05/07/2020 4:42 AM EDT) Glucose 101 65 - 199 mg/dL [facility] Comment:Diabetes: >=200 mg/d L plus symptoms Blood Urea Nitrogen 18 10 - 20 mg/dL [facility] Creatinine 0.46(L) 0.80 - 1.50 mg/dL [facility] Sodium 138 135 - 145 mmol/L [facility] Potassium 3.4(L) 3.5 - 5.0 mmol/L [facility] Comment: Please note: ??Patients with WBC >100,000 may have falsely elevated Potassium levels. ??For accurate Potassium quantification in these patients send serum separator tube (gold top) for subsequent determinations. ??Contact the Clinical Chemistry Laboratory if there are any questions. Chloride 106 98 - 107 mmol/L [facility] Carbon Dioxide 23 22 - 31 mmol/L [facility] Anion Gap 9 5 - 15 mmol/L [facility] Calcium 8.5 8.5 - 10.5 mg/dL [facility] Est Glomerular Filtration Rate 121 >=60 mL/min/1. 73 m?? [facility] Comment: The eGFR was calculated using the CKD-EPI equation. As with all creatinine based estimates of kidney function, eGFR values calculated with the CKD-EPI equation are not accurate in patients with acute kidney failure, extremes of body mass or the acutely ill. [email or web address] eGFR 140 >=60 mL/min/1. 73 m?? [facility] Comment: The eGFR was calculated using the CKD-EPI equation. As with all creatinine based estimates of kidney function, eGFR values calculated with the CKD-EPI equation are not accurate in patients with acute kidney failure, extremes of body mass or the acutely ill. [email or web address] Blood specimen (specimen) 05/07/2020 4:42 AM EDT 05/07/2020 5:03 AM EDT Narrative Resulting Agency Comment Spec In Lab Lynnette Khan APRN CHEMISTRY ORDERAB LES Performing Organization Address City/State/[facility] Co de Phone Number [facility] [place] [phone] * Duplex Study for DVT, Bilat legs (05/06/2020 1:12 PM EDT) VB Text Report Department: Vascular Surgery Lab Patient: [id number] (OLLIE BURNETT) CPT: 40018 ICD10: I82.532;I82.402 Referring Physician: JANA ONEILL ?? [...] Report VASCUBASE 05/06/2020 1:12 PM EDT Jana Eula Snow MANUFACTURING DIRECTOR VASCULAR ORDERABLE S VASCUBASE * (ABNORMAL) Differential, Automated (05/06/2020 6:13 AM EDT) Neutrophil % 75.5 % [facility] Neutrophil Absolute 7.35(H) 1.70 - 6.10 x10(3)/mc L [facility] Lymph % 14.0 % [facility] Lymphocytes Abs 1.4 0.9 - 3.2 x10(3)/mc L [facility] Monocyte % 8.1 % [facility] Monocyte Abs 0.8 0.3 - 0.9 x10(3)/mc L [facility] Eos % 1.4 % [facility] Eosinophils Abs 0.1 0.0 - 0.4 x10(3)/mc L [facility] Basophil % 0.6 % [facility] Baso Absolute 0.1 0.0 - 0.1 x10(3)/mc L [facility] Immature Gran % 0.40 % [facility] Comment: Immature granulocytes(IG's)percentage and absolute count will include metamyelocytes, myelocytes, and promyelocytes. Blood smears from CBCs yielding IG's will be scanned manually for concordance. If this scan disagrees with the automated IG or if promyelocytes are noted, a manual differential will be performed. Immature Gran Absolute 0.04 0.00 - 0.04 x10(3)/ L [facility] Blood specimen (specimen) 05/06/2020 6:13 AM EDT 05/06/2020 6:18 AM EDT Narrative Resulting Agency Comment Spec In Lab Jana Snow MANUFACTURING DIRECTOR HEMATOLOGY ORDERAB LES [facility] [place] [address] * (ABNORMAL) Hemogram (05/06/2020 6:13 AM EDT) White Blood Cell 9.7(H) 4.0 - 9.5 x10(3)/[facility] Red Blood Cell 3.59(L) 4.58 - 5.54 x10(6)/[facility] Hemoglobin 12.0(L) 13.7 - 16.5 gm/dL [facility] Hematocrit 36.4(L) 40.5 - 48.5 % [facility] Mean Cell Volume 101.4(H) 82.9 - 93.1 fL [facility] Mean Cell Hemoglobin 33.4(H) 27.5 - 32.1 pg [facility] Mean Cell Hemoglobin Concentration 33.0 32.0 - 35.7 gm/dL [facility] Platelet 447(H) 145 - 357 x10(3)/[facility] LAB[facility]ORY RDW Standard Deviation 49.1(H) 36.0 - 45.0 [facility] RDW coefficient of variation 13.1 11.4 - 13.8 % [facility] Mean Platelet Volume 9.3 7.6 - 12.9 fL [facility] NRBC% auto 0.0 % [facility] NRBC Absolute 0.000 0.000 - 0.000 x10(3)/ L [facility] Blood specimen (specimen) 05/06/2020 6:13 AM EDT 05/06/2020 6:18 AM EDT Narrative Resulting Agency Comment Spec In Lab Jana Snow MANUFACTURING DIRECTOR HEMATOLOGY ORDERAB LES Performing Organization Address [facility] Co de Phone Number [facility] [place] [address] * (ABNORMAL) Hepatic Function Panel (05/06/2020 6:13 AM EDT) Protein, Total 6.7 6.1 - 8.0 gm/dL [facility] Albumin 3.0(L) 3.2 - 5.2 gm/dL [facility] Aspartate Aminotransferase 105(H) 0 - 39 unit/L [facility] Comment:result rechecked-dixie Alanine Aminotransferase 120(H) 0 - 55 unit/L [facility] Alkaline Phosphatase 75 40 - 130 unit/L [facility] Bilirubin, Total 0.8 0.2 - 1.3 mg/dL [facility] Bilirubin, Direct 0.3 0.0 - 0.3 mg/dL [facility] Blood specimen (specimen) 05/06/2020 6:13 AM EDT 05/06/2020 6:18 AM EDT Narrative Resulting Agency Comment Spec In Lab Lynnette Khan MANUFACTURING DIRECTOR CHEMISTRY ORDERAB LES Performing Organization Address [facility] de Phone Number [facility] [place] [address] * Phosphorus (05/06/2020 6:13 AM EDT) Phosphorus 2.8 2.5 - 4.5 mg/dL [facility] Blood specimen (specimen) 05/06/2020 6:13 AM EDT 05/06/2020 6:18 AM EDT Narrative Resulting Agency Comment Spec In Lab Lynnette Khan MANUFACTURING DIRECTOR CHEMISTRY ORDERAB LES Performing Organization Address [facility]/State/ZIP Co de Phone Number [facility] [place] [address] * Magnesium (05/06/2020 6:13 AM EDT) Magnesium 0.83 0.69 - 1.07 mmol/L [facility] Blood specimen (specimen) 05/06/2020 6:13 AM EDT 05/06/2020 6:18 AM EDT Narrative Resulting Agency Comment Spec In Lab Lynnette Khan MANUFACTURING DIRECTOR CHEMISTRY ORDERAB LES [facility] [place] [address] * (ABNORMAL) Basic Metabolic Panel (non-fasting) (05/06/2020 6:13 AM EDT) Pathologist [facility] Glucose 109 65 - 199 mg/dL [facility] Comment:Diabetes: >=200 mg/d L plus symptoms Blood Urea Nitrogen 17 10 - 20 mg/dL [facility] Creatinine 0.49(L) 0.80 - 1.50 mg/dL [facility] Sodium 143 135 - 145 mmol/L [facility] Potassium 3.4(L) 3.5 - 5.0 mmol/L [facility] Comment: Please note: ??Patients with WBC >100,000 may have falsely elevated Potassium levels. ??For accurate Potassium quantification in these patients send serum separator tube (gold top) for subsequent determinations. ??Contact the Clinical Chemistry Laboratory if there are any questions. Chloride 109(H) 98 - 107 mmol/L [facility] Carbon Dioxide 23 22 - 31 mmol/L [facility] Anion Gap 11 5 - 15 mmol/L [facility] Calcium 8.3(L) 8.5 - 10.5 mg/dL [facility] Est Glomerular Filtration Rate 118 >=60 mL/min/1. 73 m?? [facility] Comment: The eGFR was calculated using the CKD-EPI equation. As with all creatinine based estimates of kidney function, eGFR values calculated with the CKD-EPI equation are not accurate in patients with acute kidney failure, extremes of body mass or the acutely ill. [email or web address] eGFR 137 >=60 mL/min/1. 73 m?? [facility] Comment: The eGFR was calculated using the CKD-EPI equation. As with all creatinine based estimates of kidney function, eGFR values calculated with the CKD-EPI equation are not accurate in patients with acute kidney failure, extremes of body mass or the acutely ill. [email or web address] Blood specimen (specimen) 05/06/2020 6:13 AM EDT 05/06/2020 6:18 AM EDT Narrative Resulting Agency Comment Spec In Lab Lynnette Khan APRN CHEMISTRY ORDERAB LES Performing Organization Address [facility]/ZIP Co de Phone Number [facility] [place] [address] * Vancomycin, trough (05/05/2020 9:57 AM EDT) Pathologist [facility] Vancomycin, Trough 9.2 mg/L M [facility] Comment: Therapeutic range for complicated infections [...] Lab Casey Jiménez MD CHEMISTRY ORDERABL ES [facility] [place] [address] * (ABNORMAL) Differential, Automated (05/05/2020 6:19 AM EDT) Neutrophil % 75.8 % [facility] Neutrophil Absolute 10.16(H) 1.70 - 6.10 x10(3)/ L [facility] Lymph % 15.4 % [facility] Lymphocytes Abs 2.1 0.9 - 3.2 x10(3)/ L [facility] Monocyte % 7.2 % [facility] Monocyte Abs 1.0(H) 0.3 - 0.9 x10(3)/ L [facility] Eos % 0.9 % [facility] Eosinophils Abs 0.1 0.0 - 0.4 x10(3)/[facility] Basophil % 0.2 % [facility] Baso Absolute 0.0 0.0 - 0.1 x10(3)/[facility] Immature Gran % 0.50 % [facility] Comment: Immature granulocytes(IG's)percentage and absolute count will include metamyelocytes, myelocytes, and promyelocytes. Blood smears from CBCs yielding IG's will be scanned manually for concordance. If this scan disagrees with the automated IG or if promyelocytes are noted, a manual differential will be performed. Immature Gran Absolute 0.07(H) 0.00 - 0.04 x10(3)/ L [facility] Blood specimen (specimen) 05/05/2020 6:19 AM EDT 05/05/2020 6:46 AM EDT Narrative Resulting Agency Comment Spec In Lab Jana Eula Snow MANUFACTURING DIRECTOR HEMATOLOGY ORDERAB LES [facility] [place] [address] * (ABNORMAL) Hemogram (05/05/2020 6:19 AM EDT) Pathologist [facility] White Blood Cell 13.4(H) 4.0 - 9.5 x10(3)/ L [facility] Red Blood Cell 3.57(L) 4.58 - 5.54 x10(6)/mc L [facility] Hemoglobin 12.0(L) 13.7 - 16.5 gm/dL [facility] Hematocrit 37.0(L) 40.5 - 48.5 % [facility] Mean Cell Volume 103.6(H) 82.9 - 93.1 fL [facility] Mean Cell Hemoglobin 33.6(H) 27.5 - 32.1 pg [facility] Mean Cell Hemoglobin Concentration 32.4 32.0 - 35.7 gm/dL [facility] Platelet 389(H) 145 - 357 x10(3)/mc L [facility] RDW Standard Deviation 50.3(H) 36.0 - 45.0 [facility] RDW coefficient of variation 13.2 11.4 - 13.8 % [facility] Mean Platelet Volume 9.1 7.6 - 12.9 [facility] NRBC% auto 0.0 % [facility] NRBC Absolute 0.000 0.000 - 0.000 x10(3)/mc L [facility] Blood specimen (specimen) 05/05/2020 6:19 AM EDT 05/05/2020 6:46 AM EDT Narrative Resulting Agency Comment Spec In Lab Jana Snow APRN HEMATOLOGY ORDERAB LES Performing Organization Address City/State/[facility] Co de Phone Number [facility] [place] [address] * (ABNORMAL) Phosphorus (05/05/2020 6:19 AM EDT) Phosphorus 2.2(L) 2.5 - 4.5 mg/dL [facility] Blood specimen (specimen) 05/05/2020 6:19 AM EDT 05/05/2020 6:46 AM EDT Narrative Resulting Agency Comment Spec In Lab Lynnette C Erin MANUFACTURING DIRECTOR CHEMISTRY ORDERAB LES Performing Organization Address [facility]/ZIP Co de Phone Number [facility] [place] [address] * Magnesium (05/05/2020 6:19 AM EDT) [facility] Magnesium 0.87 0.69 - 1.07 mmol/L [facility] Blood specimen (specimen) 05/05/2020 6:19 AM EDT 05/05/2020 6:46 AM EDT Narrative Resulting Agency Comment Spec In Lab Lynnette Khan MANUFACTURING DIRECTOR CHEMISTRY ORDERAB LES Performing Organization Address [facility] de Phone Number [facility] [place] [address] * (ABNORMAL) Hepatic Function Panel (05/05/2020 6:19 AM EDT) [facility] Protein, Total 6.3 6.1 - 8.0 gm/dL [facility] Albumin 2.8(L) 3.2 - 5.2 gm/dL [facility] Aspartate Aminotransferase 53(H) 0 - 39 unit/L [facility] Alanine Aminotransferase 93(H) 0 - 55 unit/L [facility] Alkaline Phosphatase 70 40 - 130 unit/L [facility] Bilirubin, Total 0.5 0.2 - 1.3 mg/dL [facility] Bilirubin, Direct 0.1 0.0 - 0.3 mg/dL [facility] Blood specimen (specimen) 05/05/2020 6:19 AM EDT 05/05/2020 6:46 AM EDT Narrative Resulting Agency Comment Spec In Lab Lynnette Khan MANUFACTURING DIRECTOR CHEMISTRY ORDERAB LES Performing Organization Address [facility] Co de Phone Number [facility] [place] [address] * (ABNORMAL) Basic Metabolic Panel (non-fasting) (05/05/2020 6:19 AM EDT) Glucose 135 65 - 199 mg/dL [facility] Comment:Diabetes: >=200 mg/d L plus symptoms Blood Urea Nitrogen 22(H) 10 - 20 mg/dL [facility] Creatinine 0.45(L) 0.80 - 1.50 mg/dL [facility] Sodium 146(H) 135 - 145 mmol/L [facility] Potassium 3.2(L) 3.5 - 5.0 mmol/L [facility] Comment: Please note: ??Patients with WBC >100,000 may have falsely elevated Potassium levels. ??For accurate Potassium quantification in these patients send serum separator tube (gold top) for subsequent determinations. ??Contact the Clinical Chemistry Laboratory if there are any questions. Chloride 111(H) 98 - 107 mmol/L [facility] Carbon Dioxide 24 22 - 31 mmol/L [facility] Anion Gap 11 5 - 15 mmol/L [facility] Calcium 8.3(L) 8.5 - 10.5 mg/dL [facility] Est Glomerular Filtration Rate 122 >=60 mL/min/1. 73 m?? [facility] Comment: The eGFR was calculated using the CKD-EPI equation. As with all creatinine based estimates of kidney function, eGFR values calculated with the CKD-EPI equation are not accurate in patients with acute kidney failure, extremes of body mass or the acutely ill. http://[facility] eGFR 142 >=60 mL/min/1. 73 m?? [facility] Comment: The eGFR was calculated using the CKD-EPI equation. As with all creatinine based estimates of kidney function, eGFR values calculated with the CKD-EPI equation are not accurate in patients with acute kidney failure, extremes of body mass or the acutely ill. http://[facility] Blood specimen (specimen) 05/05/2020 6:19 AM EDT 05/05/2020 6:46 AM EDT Narrative Resulting Agency Comment Spec In Lab Lynnette Khan MANUFACTURING DIRECTOR CHEMISTRY ORDERAB LES Performing Organization Address [facility]/ZIP Co de Phone Number [facility] [place] [address] * Lactate, whole blood, send to lab ([facility]) (05/04/2020 10:41 AM EDT) [facility] Lactate WB 1.5 0.5 - 2.2 mmol/L [facility] Blood specimen (specimen) 05/04/2020 10:41 AM EDT 05/04/2020 10:46 AM EDT Narrative Resulting Agency Comment Spec In Lab Jana Snow MANUFACTURING DIRECTOR CHEMISTRY ORDERABL ES Performing Organization Address [facility] Co de Phone Number [facility] [place] [address] * Scan, Peripheral Blood (05/04/2020 2:05 AM EDT) [facility] Plat estimate Increased [facility] RBC Morphology Abnormal [facility] Macrocyte 6-10 /HPF [facility] Blood specimen (specimen) 05/04/2020 2:05 AM EDT 05/04/2020 2:33 AM EDT Narrative Resulting Agency Comment Spec In Lab Jana Snow MANUFACTURING DIRECTOR HEMATOLOGY ORDERAB LES Performing Organization Address [facility]/ZIP Co de Phone Number [facility] [place] [address] * (ABNORMAL) Differential, Automated (05/04/2020 2:05 AM EDT) [facility] Neutrophil % 74.4 % [facility] Neutrophil Absolute 11.86(H) 1.70 - 6.10 x10(3)/mc L [facility] Lymph % 15.8 % [facility] Lymphocytes Abs 2.5 0.9 - 3.2 x10(3)/mc L [facility] Monocyte % 8.5 % [facility] Monocyte Abs 1.4(H) 0.3 - 0.9 x10(3)/[facility] Eos % 0.1 % [facility] Eosinophils Abs 0.0 0.0 - 0.4 x10(3)/[facility] Basophil % 0.4 % [facility] Baso Absolute 0.1 0.0 - 0.1 x10(3)/[facility] Immature Gran % 0.80 % [facility] Comment: Immature granulocytes(IG's)percentage and absolute count will include metamyelocytes, myelocytes, and promyelocytes. Blood smears from CBCs yielding IG's will be scanned manually for concordance. If this scan disagrees with the automated IG or if promyelocytes are noted, a manual differential will be performed. Immature Gran Absolute 0.13(H) 0.00 - 0.04 x10(3)/[facility] Blood specimen (specimen) 05/04/2020 2:05 AM EDT 05/04/2020 2:33 AM EDT Narrative Resulting Agency Comment Spec In Lab Jana Snow APRN HEMATOLOGY ORDERAB LES [facility] [place] [address] * (ABNORMAL) Hemogram (05/04/2020 2:05 AM EDT) White Blood Cell 16.0(H) 4.0 - 9.5 x10(3)/[facility] Red Blood Cell 3.72(L) 4.58 - 5.54 x10(6)/[facility] Hemoglobin 12.6(L) 13.7 - 16.5 gm/dL [facility] Hematocrit 39.1(L) 40.5 - 48.5 % [facility] Mean Cell Volume 105.1(H) 82.9 - 93.1 fL [facility] Mean Cell Hemoglobin 33.9(H) 27.5 - 32.1 pg [facility] Mean Cell Hemoglobin Concentration 32.2 32.0 - 35.7 gm/dL [facility] Platelet 441(H) 145 - 357 x10(3)/mc L [facility] RDW Standard Deviation 53.4(H) 36.0 - 45.0 fL [facility] RDW coefficient of variation 13.8 11.4 - 13.8 % [facility] Mean Platelet Volume 9.2 7.6 - 12.9 fL [facility] NRBC% auto 0.0 % [facility] NRBC Absolute 0.000 0.000 - 0.000 x10(3)/mc L [facility] Blood specimen (specimen) 05/04/2020 2:05 AM EDT 05/04/2020 2:33 AM EDT Narrative Resulting Agency Comment Spec In Lab Jana Snow MANUFACTURING DIRECTOR HEMATOLOGY ORDERAB LES [facility] [place] [address] * Phosphorus (05/04/2020 2:05 AM EDT) Phosphorus 3.2 2.5 - 4.5 mg/dL [facility] Blood specimen (specimen) 05/04/2020 2:05 AM EDT 05/04/2020 2:33 AM EDT Narrative Resulting Agency Comment Spec In Lab Lynnette Khan MANUFACTURING DIRECTOR CHEMISTRY ORDERAB LES [facility] [place] [address] * Magnesium (05/04/2020 2:05 AM EDT) Magnesium 0.90 0.69 - 1.07 mmol/L [facility] Blood specimen (specimen) 05/04/2020 2:05 AM EDT 05/04/2020 2:33 AM EDT Narrative Resulting Agency Comment Spec In Lab Lynnette Khan MANUFACTURING DIRECTOR CHEMISTRY ORDERAB LES [facility] [place] [address] * (ABNORMAL) Basic Metabolic Panel (non-fasting) (05/04/2020 2:05 AM EDT) Glucose 186 65 - 199 mg/dL [facility] Comment:Diabetes: >=200 mg/d L plus symptoms Blood Urea Nitrogen 32(H) 10 - 20 mg/dL [facility] Creatinine 0.65(L) 0.80 - 1.50 mg/dL [facility] Sodium 148(H) 135 - 145 mmol/L [facility] Potassium 3.5 3.5 - 5.0 mmol/L [facility] Comment: Please note: ??Patients with WBC >100,000 may have falsely elevated Potassium levels. ??For accurate Potassium quantification in these patients send serum separator tube (gold top) for subsequent determinations. ??Contact the Clinical Chemistry Laboratory if there are any questions. Chloride 111(H) 98 - 107 mmol/L [facility] Carbon Dioxide 26 22 - 31 mmol/L [facility] Anion Gap 11 5 - 15 mmol/L [facility] Calcium 8.6 8.5 - 10.5 mg/dL [facility] Est Glomerular Filtration Rate 105 >=60 mL/min/1. 73 m?? [facility] Comment: The eGFR was calculated using the CKD-EPI equation. As with all creatinine based estimates of kidney function, eGFR values calculated with the CKD-EPI equation are not accurate in patients with acute kidney failure, extremes of body mass or the acutely ill. http://[facility] eGFR 122 >=60 mL/min/1. 73 m?? [facility] Comment: The eGFR was calculated using the CKD-EPI equation. As with all creatinine based estimates of kidney function, eGFR values calculated with the CKD-EPI equation are not accurate in patients with acute kidney failure, extremes of body mass or the acutely ill. [email or web address] Blood specimen (specimen) 05/04/2020 2:05 AM EDT 05/04/2020 2:33 AM EDT Narrative Resulting Agency Comment Spec In Lab Lynnette Khan MANUFACTURING DIRECTOR CHEMISTRY ORDERAB LES Performing Organization Address City/[facility]/ZIP Co de Phone Number [facility] [place] [address] * (ABNORMAL) Hepatic Function Panel (05/04/2020 2:05 AM EDT) Protein, Total 6.9 6.1 - 8.0 gm/dL [facility] Albumin 3.2 3.2 - 5.2 gm/dL [facility] Aspartate Aminotransferase 100(H) 0 - 39 unit/L [facility] Comment:result rechecked-dixie Alanine Aminotransferase 137(H) 0 - 55 unit/L [facility] Alkaline Phosphatase 76 40 - 130 unit/L [facility] Bilirubin, Total 0.8 0.2 - 1.3 mg/dL [facility] Bilirubin, Direct 0.3 0.0 - 0.3 mg/dL [facility] Blood specimen (specimen) 05/04/2020 2:05 AM EDT 05/04/2020 2:33 AM EDT Narrative Resulting Agency Comment Spec In Lab Jana Eula Snow MANUFACTURING DIRECTOR CHEMISTRY ORDERABL ES Performing Organization Address [facility]/ZIP Co de Phone Number [facility] [place] [address] * MRI Brain wo Contrast (05/03/2020 9:32 [...] assess for new infarcts / abnls (accession [id number]), 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 3-D [id number]-ws-[id number] MRA of the head is performed COMPARISON: [...] Please assessfor new infarcts / abnls (accession [id number]), Multiple embolic infarcts notedafter intraventricular hemorrhage, hx of drug abuse - question vasculitis vsother etiology (accession [id number]) TECHNIQUE: MRI of the brain performed without intravenous contrast administration.3-D entz-ty-yxsbof MRA of the head is performed COMPARISON: [...] via left frontal approach is surrounded by [id number] similar in extent to the area of [...] report, please contact the number below. 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 3-D luha-ko-iybyea MRA of the head is performed COMPARISON: [...] Please assessfor new infarcts / abnls (accession [id number]), Multiple embolic infarcts notedafter intraventricular hemorrhage, hx of drug abuse - question vasculitis vsother etiology (accession [id number]) TECHNIQUE: MRI of the brain performed without intravenous contrast administration.3-D zlrc-[id number] MRA of the head is performed COMPARISON: [...] via left frontal approach is surrounded by [id number] similar in extent to the area of [...] contact the number below. Electronically signed by: TON Garcia [facility]([phone]), at 05/04/2020 8:57 AM Jana Snow APRN IMG MRI ORDERABLES * Iron Stain, Body Fluid (05/03/2020 4:40 PM EDT) Iron Stain BF Type CSF [facility] Body Fluid Iron Stain, Fld See Comment [facility] Comment:Siderocytes Present Cerebrospinal fluid specimen (specimen) Other / Unknown 05/03/2020 4:40 PM EDT 05/03/2020 4:50 PM EDT Narrative Resulting Agency Comment Spec In Lab Joan Guadarrama MD HEMATOLOGY ORDERABL ES Performing Organization Address City/[facility]/ZIP Co de Phone Number [facility] [place] [address] * CSF Cell Count 2nd count (05/03/2020 4:40 PM EDT) Tube # 2nd count 1 [facility] RBC CSF CT #2 6000 /mcl [facility] Cerebrospinal fluid specimen (specimen) 05/03/2020 4:40 PM EDT 05/03/2020 4:50 PM EDT Narrative Resulting Agency Comment Spec In Lab Melissa Cohen MD BODY FLUIDS AND STOO LS ORDERABLES Performing Organization Address City/[facility]/ZIP Co de Phone Number [facility] [place] [address] * (ABNORMAL) CSF Cell Count (05/03/2020 4:40 PM EDT) Tube # counted 4 [facility] AUTO NUC CSF CT 26(H) 0 - 5 /mcl [facility] Comment: If Nucleated CSF CT result [...] clinical condition. RBC CSF CT 9,000 /mcl [facility] Segmented Neutrophils, CSF 2 % [facility] Lymphocyte, CSF 61 % [facility] Macrophage CSF 37 % [facility] Comment:Hemosiderin suspecte d-to be confirmed by iron stain. Total Cells, CSF 65 Cells [facility] Cerebrospinal fluid specimen (specimen) 05/03/2020 4:40 PM EDT 05/03/2020 4:50 PM EDT Narrative Resulting Agency Comment Spec In Lab Melissa Cohen MD BODY FLUIDS AND STOO LS ORDERABLES Performing Organization Address [facility] Co de Phone Number [facility] [place] [address] * CSF DESC 4 (05/03/2020 4:40 PM EDT) Tube Num CSF 4 4 [facility] Color, CSF 4 Red Colorless [facility] Appearance, CSF 4 Clear Clear [facility] Total Vol, CSF 4 3.0 mL [facility] Cerebrospinal fluid specimen (specimen) 05/03/2020 4:40 PM EDT 05/03/2020 4:50 PM EDT Narrative Resulting Agency Comment Spec In Lab Melissa Cohen MD BODY FLUIDS AND STOO LS ORDERABLES Performing Organization Address [facility] Co de Phone Number [facility] [place] [address] * CSF DESC 3 (05/03/2020 4:40 PM EDT) Tube Num CSF 3 3 [facility] Color, CSF 3 Red Colorless [facility] Appearance, CSF 3 Clear Clear [facility] Total Vol, CSF 3 3.0 mL [facility] Cerebrospinal fluid specimen (specimen) 05/03/2020 4:40 PM EDT 05/03/2020 4:50 PM EDT Narrative Resulting Agency Comment Spec In Lab Melissa Cohen MD BODY FLUIDS AND STOO LS ORDERABLES Performing Organization Address City/[facility]/ZIP Co de Phone Number [facility] [place] [address] * CSF DESC 2 (05/03/2020 4:40 PM EDT) Tube Num CSF #2 2 [facility] Color, CSF 2 Red-brown Colorless [facility] Appearance, CSF 2 Clear Clear [facility] Total Vol, CSF 2 3.8 mL [facility] Cerebrospinal fluid specimen (specimen) 05/03/2020 4:40 PM EDT 05/03/2020 4:50 PM EDT Narrative Resulting Agency Comment Spec In Lab Melissa Cohen MD BODY FLUIDS AND STOO LS ORDERABLES Performing Organization Address City/[facility] Co de Phone Number [facility] [place] [address] * CSF DESC 1 (05/03/2020 4:40 PM EDT) Tube Num CSF #1 1 [facility] Color, CSF Red Colorless [facility] Appearance, CSF Hazy Clear [facility] Total Vol, CSF 3.7 mL [facility] Cerebrospinal fluid specimen (specimen) 05/03/2020 4:40 PM EDT 05/03/2020 4:50 PM EDT Narrative Resulting Agency Comment Spec In Lab Melissa Cohen MD BODY FLUIDS AND STOO LS ORDERABLES [facility] [place] [address] * Body Fluid HOLD Cerebrospinal Fluid (05/03/2020 4:40 PM EDT) HOLD, FLD Sample in lab. [facility] Comment: Collection date/time has been modified to: 16:40:00. ??Previous collection date/time: 16:35:00. Corrected from Sample in lab. [NA] on 05/03/20 16:51:24 EDT by Adilia Joseph Body fluid specimen (specimen) 05/03/2020 4:40 PM EDT 05/03/2020 4:50 PM EDT Casey Jiménez MD BODY FLUIDS AND ST OOLS ORDERABLES Performing Organization Address [facility]/ZIP Co de Phone Number [facility] [place] [address] * Glucose Level CSF (05/03/2020 4:40 PM EDT) Glucose, CSF 77 mg/dL [facility] Comment:CSF at equilibrium e quals approximately 60-80% of plasma glucose. Cerebrospinal fluid specimen (specimen) 05/03/2020 4:40 PM EDT 05/03/2020 4:50 PM EDT Narrative Resulting Agency Comment Spec In Lab Casey Jiménez MD BODY FLUIDS AND ST OOLS ORDERABLES Performing Organization Address [facility] Co de Phone Number [facility] [place] [address] * Protein Level CSF (05/03/2020 4:40 PM EDT) Protein, CSF 43 15 - 45 mg/dL [facility] Comment: If CSF red cells are due to traumatic tap, the measured CSF Total Protein will be increased by approximately 1 mg/dL for every 1000 RBC/UL, assuming normal serum protein, hematocrit and peripheral RBC Xanthochromia Marked [facility] Cerebrospinal fluid specimen (specimen) 05/03/2020 4:40 PM EDT 05/03/2020 4:50 PM EDT Narrative Resulting Agency Comment Spec In Lab Casey Jiménez MD BODY FLUIDS AND ST OOLS ORDERABLES Performing Organization Address [facility]/ZIP Co de Phone Number [facility] [place] [address] * Enterovirus PCR, CSF (05/03/2020 4:36 PM EDT) ENTV PCR Negative Negative [facility] Cerebrospinal fluid specimen (specimen) 05/03/2020 4:36 PM EDT 05/03/2020 5:06 PM EDT Narrative Resulting Agency Comment Spec In Lab Casey Jiménez MD MICROBIOLOGY - GEN ERAL ORDERABLES Performing Organization Address City/[facility]/ZIP Co de Phone Number [facility] [place] [address] * Cryptococcal Antigen CSF ([facility]/CGP/APD) (05/03/2020 4:36 PM EDT) Cryptococcal Antigen, CSF Negative Negative [facility] Cerebrospinal fluid specimen (specimen) 05/03/2020 4:36 PM EDT 05/03/2020 5:35 PM EDT Narrative Resulting Agency Comment Spec In Lab Casey Jiménez MD MICROBIOLOGY - GEN ERAL ORDERABLES Performing Organization Address City/[facility]/ZIP Co de Phone Number [facility] [place] [address] * Fungus culture Cerebrospinal Fluid (05/03/2020 4:36 PM EDT) Fungus Culture No Fungus isolated [facility] Cerebrospinal fluid specimen (specimen) 05/03/2020 4:36 PM EDT 05/03/2020 5:06 PM EDT Narrative Resulting Agency Comment Spec In Lab Casey Jiménez MD MICROBIOLOGY - GEN ERAL ORDERABLES Performing Organization Address City/[facility]/ZIP Co de Phone Number [facility] [place] [address] * CSF Culture (05/03/2020 4:36 PM EDT) Central Nervous System Culture No growth [facility] Gram Stain Cytocentrifuge Gram Stain performed No Neutrophils seen. No microorganisms seen. [facility] Cerebrospinal fluid specimen (specimen) 05/03/2020 4:36 PM EDT 05/03/2020 5:06 PM EDT Narrative Resulting Agency Comment Spec In Lab Casey Jiménez MD MICROBIOLOGY - GEN ERAL ORDERABLES [facility] [address] [facility] [place] [address] * XR Chest One View (05/03/2020 1:59 PM EDT) Anatomical Region Laterality Modality Chest N/A Digital Radiogra phy Impressions 05/03/2020 2:02 PM EDT No acute cardiopulmonary pathology identified. Thank you for letting us participate in the care of this patient. For questions regarding this report, please contact the number below. ? Narrative 05/03/2020 2:02 PM EDT EXAMINATION: XR [...] EDT) pH, Arterial 7.40 7.35 - 7.45 [facility] PCO2, Arterial 42 35 - 45 mmHg [facility] PO2, Arterial 200(H) 85 - 104 mmHg [facility] Bicarbonate, Arterial 25.4 20.0 - 26.0 mmol/L [facility] Base Excess, Arterial 0.5 -3.0 - 3.0 mmol/L [facility] Hgb Blood Gas 13.7 13.7 - 16.5 gm/dL [facility] Oxyhemoglobin, Arterial 98.1(H) 94.0 - 97.0 % [facility] Carboxyhemoglob in, Arterial 0.4 % [facility] Comment: Nonsmokers: 0.5-1.5% COHB Smokers: Variable, but usually less than 10% Toxic: 20-30% COHB Lethal: Greater than 60% COHB Methemoglobin, Arterial 0.6 <=1.5 % [facility] Na Whole Blood 144 135 - 145 mmol/L [facility] K Whole Blood 3.8 3.5 - 5.0 mmol/L [facility] Comment: Please note: Patients with WBC >100,000 may have falsely elevated Potassium levels. Contact the Clinical Chemistry Laboratory if there are any questions. ICa Whole Blood 1.17 1.15 - 1.33 mmol/L [facility] Comment: Note: ??Total bilirubin higher than 20 mg/dL may lead to falsely low ionized calcium. CL Whole Blood 108(H) 98 - 107 mmol/L [facility] Gluc Whole Bld 162 65 - 199 mg/dL [facility] Comment:Diabetes: >=200 mg/d L plus symptoms. Lactate WB 1.1 0.5 - 2.2 mmol/L [facility] Blood specimen (specimen) 05/03/2020 1:06 PM EDT 05/03/2020 1:06 PM EDT Casey Jiménez MD POINT OF CARE TEST ORDERABLES Performing Organization Address City/[facility] Co de Phone Number [facility] [place] [address] * Blood culture (05/03/2020 12:42 PM EDT) Blood Culture No growth at 5 days. [facility] Blood specimen (specimen) STRUCTURE OF RIGHT HAND / Unknown 05/03/2020 12:42 PM EDT 05/03/2020 2:00 PM EDT Narrative Resulting Agency Comment Spec In Lab Jana Snow APRN MICROBIOLOGY - BLO OD ORDERABLES Performing Organization Address [facility] Co de Phone Number [facility] [place] [address] * Blood culture (05/03/2020 12:32 PM EDT) Blood Culture No growth at 5 days. [facility] Blood specimen (specimen) STRUCTURE OF LEFT THUMB / Unknown 05/03/2020 12:32 PM EDT 05/03/2020 1:59 PM EDT Narrative Resulting Agency Comment Spec In Lab Jana Snow APRN MICROBIOLOGY - BLO OD ORDERABLES Performing Organization Address [facility] Co de Phone Number [facility] [place] [address] * EEG awake, asleep, drowsy, routine (05/03/2020 11:58 AM EDT) Narrative Thor Marx MD - 05/03/2020 11:58 AM Thor Louise MD ? 05/03/2020 ??6:40 PM [facility] Department of Neurology Routine [...] Continuous Lynnette Khan APRN 45 mL/hr at 05/02/202138 1,080 mL at 05/02/20 2139 ? ? [...] was performed in the inpatient unit at [facility]. The 10/20 international system of electrode placement was used and bipolar and referential electrode montages were recorded. ??In addition to EEG the patient was monitored for EKG and lateral/vertical eye movements. Video was recorded during the session. The duration of the recording was 73 minutes. ELECTRIC METER REPAIRER HELPER'S REPORT: Performed by: CM Patient was not [...] documented. Thor Marx MD Department [place] [address] Pager: [phone], #[phone] Email: [email or web address] Deon Presley MD Clinical Neurophysiology Fellow Pager: [phone] 05/03/2020 Casey Jiménez MD NEUROLOGY ORDERABL ES [...] the number below. ? Electronically signed by: TON Monaco [facility] ([phone]), at 05/03/2020 10:12 AM Narrative 05/03/2020 10:12 [...] contact the number below. Electronically signed by: TON Monaco [facility] ([phone]),at 05/03/2020 10:12 AM Casey Jiménez MD IM CT ORDERABLES * Lipid Panel (No Reflex) (05/03/2020 1:14 AM EDT) Cholesterol, Total 138 mg/dL Janette [facility] Comment: Lower Risk: <200 mg/dL Average Risk: 200-239 mg/dL Higher Risk: >wk=163 mg/dL Triglyceride 150 mg/dL [facility] Comment: Average Risk/Lower Risk: <150 mg/dL Borderline High Risk: 150-199 mg/dL High Risk: 200-499 mg/dL Very High Risk: >gw=163 mg/dL HDL Cholesterol 30 mg/dL [facility] Comment: Males: ?? Higher Risk: <40 mg/dL Females: ?? HIgher Risk: <50 mg/dL LDL Cholesterol 78 mg/dL [facility] Comment: Lowest Risk: <100 mg/dL Lower Risk: 100-129 mg/dL Borderline High Risk: 130-159 mg/dL High Risk: 160-189 mg/dL Very High Risk: >fa=853 mg/dL Cholesterol/HDL Ratio 4.6 ratio [facility] Lipid Interpretation See Note [facility] Comment: Lipid management should be guided by a patient? s ASCVD risk, goals and preferences. ACC/AHA Guidelines recommend high intensity statin if clinical ASCVD or LDL greater than or equal to 190 mg/dL. http://[employer].com/KMU-DON-Ofkvkouuc Adults aged 40-75 with LDL 70-189 mg/dL should have their 10 year ASCVD risk estimated with the ACC/AHA ASCVD risk auto body repair estimator http://tools.acc.org/AJZOL-Ziiz-Lphkfeibf/ Statin should be discussed if risk greater [...] Agency Comment Spec In Lab Jana Snow MANUFACTURING DIRECTOR CHEMISTRY ORDERABL ES [facility] [place] [address] * Hemoglobin A1c (05/03/2020 1:14 AM EDT) Hemoglobin A1c 5.4 4.3 - 5.6 % [facility] Comment: Reference Range: 4.3 - [...] Mellitus, Diabetes Care 2013; 36: Suppl. 1, S67-88 Estimated Average Glucose 107 mg/dL [facility] Comment: eAG equivalents for HbA1c [...] into estimated average glucose values. ??Diabetes Care 2008:31(8):3872-2240. Blood specimen (specimen) Venous Draw / Unknown 05/03/2020 1:14 AM EDT 05/03/2020 6:38 AM EDT Narrative Resulting Agency Comment Spec In Lab Jana Snow MANUFACTURING DIRECTOR CHEMISTRY ORDERABL ES [facility] [place] [address] * (ABNORMAL) Differential, Automated (05/03/2020 1:14 AM EDT) Neutrophil % 65.7 % [facility] Neutrophil Absolute 9.18(H) 1.70 - 6.10 x10(3)/[facility] Lymph % 22.5 % [facility] Lymphocytes Abs 3.1 0.9 - 3.2 x10(3)/[facility] Monocyte % 10.5 % [facility] Monocyte Abs 1.5(H) 0.3 - 0.9 x10(3)/ L [facility] Eos % 0.4 % [facility] Eosinophils Abs 0.0 0.0 - 0.4 x10(3)/[facility] Basophil % 0.4 % [facility] Baso Absolute 0.1 0.0 - 0.1 x10(3)/[facility] Immature Gran % 0.50 % [facility] Comment: Immature granulocytes(IG's)percentage and absolute count will include metamyelocytes, myelocytes, and promyelocytes. Blood smears from CBCs yielding IG's will be scanned manually for concordance. If this scan disagrees with the automated IG or if promyelocytes are noted, a manual differential will be performed. Immature Gran Absolute 0.07(H) 0.00 - 0.04 x10(3)/ L [facility] Blood specimen (specimen) 05/03/2020 1:14 AM EDT 05/03/2020 1:29 AM EDT Narrative Resulting Agency Comment Spec In Lab Hussein Lo MD HEMATOLOGY MARZENA PEDRAZA Performing Organization Address City/[facility] Co de Phone Number [facility] [place] [address] * (ABNORMAL) Hemogram (05/03/2020 1:14 AM EDT) White Blood Cell 14.0(H) 4.0 - 9.5 x10(3)/[facility] Red Blood Cell 3.80(L) 4.58 - 5.54 x10(6)/[facility] Hemoglobin 12.9(L) 13.7 - 16.5 gm/dL [facility] Hematocrit 38.9(L) 40.5 - 48.5 % [facility] Mean Cell Volume 102.4(H) 82.9 - 93.1 [facility] Mean Cell Hemoglobin 33.9(H) 27.5 - 32.1 pg [facility] Mean Cell Hemoglobin Concentration 33.2 32.0 - 35.7 gm/dL [facility] Platelet 441(H) 145 - 357 x10(3)/[facility] RDW Standard Deviation 51.2(H) 36.0 - 45.0 [facility] RDW coefficient of variation 13.7 11.4 - 13.8 % [facility] Mean Platelet Volume 9.1 7.6 - 12.9 [facility] NRBC% auto 0.0 % [facility] NRBC Absolute 0.000 0.000 - 0.000 x10(3)/[facility] Blood specimen (specimen) 05/03/2020 1:14 AM EDT 05/03/2020 1:29 AM EDT Narrative Resulting Agency Comment Spec In Lab Hussein Lo MD HEMATOLOGY MARZENA PEDRAZA [facility] [place] [address] * Phosphorus (05/03/2020 1:14 AM EDT) Phosphorus 3.8 2.5 - 4.5 mg/dL [facility] Blood specimen (specimen) 05/03/2020 1:14 AM EDT 05/03/2020 1:29 AM EDT Narrative Resulting Agency Comment Spec In Lab Jana Trinh MD CHEMISTRY ORDERABLES Performing Organization Address [facility]/ZIP Co de Phone Number [facility] [place] [address] * (ABNORMAL) Basic Metabolic Panel (non-fasting) (05/03/2020 1:14 AM EDT) Glucose 155 65 - 199 mg/dL [facility] Comment:Diabetes: >=200 mg/d L plus symptoms Blood Urea Nitrogen 31(H) 10 - 20 mg/dL [facility] Creatinine 0.58(L) 0.80 - 1.50 mg/dL [facility] Sodium 144 135 - 145 mmol/L [facility] Potassium 3.7 3.5 - 5.0 mmol/L [facility] Comment: Please note: ??Patients with WBC >100,000 may have falsely elevated Potassium levels. ??For accurate Potassium quantification in these patients send serum separator tube (gold top) for subsequent determinations. ??Contact the Clinical Chemistry Laboratory if there are any questions. Chloride 106 98 - 107 mmol/L [facility] Carbon Dioxide 27 22 - 31 mmol/L [facility] Anion Gap 11 5 - 15 mmol/L [facility] Calcium 9.1 8.5 - 10.5 mg/dL [facility] Est Glomerular Filtration Rate 110 >=60 mL/min/1. 73 m?? [facility] Comment: The eGFR was calculated using the CKD-EPI equation. As with all creatinine based estimates of kidney function, eGFR values calculated with the CKD-EPI equation are not accurate in patients with acute kidney failure, extremes of body mass or the acutely ill. [email or web address]/DHMCnkf eGFR 128 >=60 mL/min/1. 73 m?? [facility] Comment: The eGFR was calculated using the CKD-EPI equation. As with all creatinine based estimates of kidney function, eGFR values calculated with the CKD-EPI equation are not accurate in patients with acute kidney failure, extremes of body mass or the acutely ill. http://[facility]f Blood specimen (specimen) 05/03/2020 1:14 AM EDT 05/03/2020 1:29 AM EDT Narrative Resulting Agency Comment Spec In Lab Jana Trinh MD CHEMISTRY ORDERABLES Performing Organization Address [facility] de Phone Number [facility] [place] [address] * Magnesium (05/03/2020 1:14 AM EDT) Magnesium 0.91 0.69 - 1.07 mmol/L [facility] Blood specimen (specimen) 05/03/2020 1:14 AM EDT 05/03/2020 1:29 AM EDT Narrative Resulting Agency Comment Spec In Lab Jana Trinh MD CHEMISTRY ORDERABLES Performing Organization Address [facility] Co de Phone Number [facility] [place] [address] * Ammonia (05/02/2020 3:32 AM EDT) Ammonia 53 16 - 60 mcmol/L [facility] Blood specimen (specimen) 05/02/2020 3:32 AM EDT 05/02/2020 4:36 AM EDT Narrative Resulting Agency Comment Spec In Lab Casey Jiménez MD CHEMISTRY ORDERABL ES Performing Organization Address [facility] Co de Phone Number [facility] [place] [address] * (ABNORMAL) Differential, Automated (05/02/2020 3:32 AM EDT) Pathologist [facility] Neutrophil % 64.1 % [facility] Neutrophil Absolute 7.76(H) 1.70 - 6.10 x10(3)/ L [facility] Lymph % 22.9 % [facility] Lymphocytes Abs 2.8 0.9 - 3.2 x10(3)/[facility] Monocyte % 11.6 % [facility] Monocyte Abs 1.4(H) 0.3 - 0.9 x10(3)/[facility] Eos % 0.3 % [facility] Eosinophils Abs 0.0 0.0 - 0.4 x10(3)/[facility] Basophil % 0.4 % [facility] Baso Absolute 0.0 0.0 - 0.1 x10(3)/[facility] Immature Gran % 0.70 % [facility] Comment: Immature granulocytes(IG's)percentage and absolute count will include metamyelocytes, myelocytes, and promyelocytes. Blood smears from CBCs yielding IG's will be scanned manually for concordance. If this scan disagrees with the automated IG or if promyelocytes are noted, a manual differential will be performed. Immature Gran Absolute 0.09(H) 0.00 - 0.04 x10(3)/ L [facility] Blood specimen (specimen) 05/02/2020 3:32 AM EDT 05/02/2020 3:43 AM EDT Narrative Resulting Agency Comment Spec In Lab Hussein Lo MD HEMATOLOGY MARZENA PEDRAZA [facility] [place] [address] * (ABNORMAL) Hemogram (05/02/2020 3:32 AM EDT) [facility] White Blood Cell 12.1(H) 4.0 - 9.5 x10(3)/[facility] Red Blood Cell 3.83(L) 4.58 - 5.54 x10(6)/ L [facility] Hemoglobin 12.8(L) 13.7 - 16.5 gm/dL [facility] Hematocrit 38.7(L) 40.5 - 48.5 % [facility] Mean Cell Volume 101.0(H) 82.9 - 93.1 fL [facility] Mean Cell Hemoglobin 33.4(H) 27.5 - 32.1 pg [facility] Mean Cell Hemoglobin Concentration 33.1 32.0 - 35.7 gm/dL [facility] Platelet 433(H) 145 - 357 x10(3)/[facility] RDW Standard Deviation 50.1(H) 36.0 - 45.0 [facility] RDW coefficient of variation 13.6 11.4 - 13.8 % [facility] Mean Platelet Volume 9.0 7.6 - 12.9 fL [facility] NRBC% auto 0.0 % [facility] NRBC Absolute 0.000 0.000 - 0.000 x10(3)/[facility] Blood specimen (specimen) 05/02/2020 3:32 AM EDT 05/02/2020 3:43 AM EDT Narrative Resulting Agency Comment Spec In Lab Hussein Lo MD HEMATOLOGY MARZENA PEDRAZA [facility] [place] [address] * Phosphorus (05/02/2020 3:32 AM EDT) Phosphorus 3.9 2.5 - 4.5 mg/dL [facility] Blood specimen (specimen) 05/02/2020 3:32 AM EDT 05/02/2020 3:43 AM EDT Narrative Resulting Agency Comment Spec In Lab Casey Jiménez MD CHEMISTRY ORDERABL ES Performing Organization Address [facility] Co de Phone Number [facility] [place] [address] * Magnesium (05/02/2020 3:32 AM EDT) Magnesium 0.96 0.69 - 1.07 mmol/L [facility] Blood specimen (specimen) 05/02/2020 3:32 AM EDT 05/02/2020 3:43 AM EDT Narrative Resulting Agency Comment Spec In Lab Casey Jiménez MD CHEMISTRY ORDERABL ES Performing Organization Address [facility] Co de Phone Number [facility] [place] [address] * (ABNORMAL) Basic Metabolic Panel (non-fasting) (05/02/2020 3:32 AM EDT) Pathologist [facility] Glucose 179 65 - 199 mg/dL [facility] Comment:Diabetes: >=200 mg/d L plus symptoms Blood Urea Nitrogen 30(H) 10 - 20 mg/dL [facility] Creatinine 0.58(L) 0.80 - 1.50 mg/dL [facility] Sodium 147(H) 135 - 145 mmol/L [facility] Potassium 4.0 3.5 - 5.0 mmol/L [facility] Comment: Please note: ??Patients with WBC >100,000 may have falsely elevated Potassium levels. ??For accurate Potassium quantification in these patients send serum separator tube (gold top) for subsequent determinations. ??Contact the Clinical Chemistry Laboratory if there are any questions. Chloride 108(H) 98 - 107 mmol/L [facility] Carbon Dioxide 25 22 - 31 mmol/L [facility] Anion Gap 14 5 - 15 mmol/L [facility] Calcium 9.2 8.5 - 10.5 mg/dL [facility] Est Glomerular Filtration Rate 110 >=60 mL/min/1. 73 m?? [facility] Comment: The eGFR was calculated using the CKD-EPI equation. As with all creatinine based estimates of kidney function, eGFR values calculated with the CKD-EPI equation are not accurate in patients with acute kidney failure, extremes of body mass or the acutely ill. http://[facility]nk[facility] eGFR 128 >=60 mL/min/1. 73 m?? [facility] Comment: The eGFR was calculated using the CKD-EPI equation. As with all creatinine based estimates of kidney function, eGFR values calculated with the CKD-EPI equation are not accurate in patients with acute kidney failure, extremes of body mass or the acutely ill. http://[facility] Blood specimen (specimen) 05/02/2020 3:32 AM EDT 05/02/2020 3:43 AM EDT Narrative Resulting Agency Comment Spec In Lab Casey Jiménez MD CHEMISTRY ORDERABL ES Performing Organization Address City/[facility]/ZIP Co de Phone Number [facility] [place] [address] * Lavender Tube HOLD (05/02/2020 1:40 AM EDT) Lavender Hold Sample in lab. [facility] Blood specimen (specimen) Venous Draw / Unknown 05/02/2020 1:40 AM EDT 05/02/2020 1:49 AM EDT Lu Niño MD HEMATOLOGY ORDERABLE S Performing Organization Address City/[facility]/ZIP Co de Phone Number [facility] [place] [address] * TSH (05/01/2020 7:00 PM EDT) Thyroid Stimulating Hormone 1.66 0.27 - 4.20 mcIU/mL [facility] Blood specimen (specimen) 05/01/2020 7:00 PM EDT 05/01/2020 7:19 PM EDT Narrative Resulting Agency Comment Spec In Lab Jana Trinh MD CHEMISTRY ORDERABLES Performing Organization Address [facility]/ZIP Co de Phone Number [facility] [place] [address] * Folate, serum (05/01/2020 7:00 PM EDT) Pathologist [facility] Folate 18.7 4.8 - 24.2 ng/mL [facility] Blood specimen (specimen) 05/01/2020 7:00 PM EDT 05/01/2020 7:19 PM EDT Narrative Resulting Agency Comment Spec In Lab Jana Trinh MD CHEMISTRY ORDERABLES Performing Organization Address [facility] Co de Phone Number [facility] [place] [address] * (ABNORMAL) Vitamin B12 (05/01/2020 7:00 PM EDT) Pathologist [facility] Vitamin B12 1,289(H) 232 - 1,245 pg/mL [facility] Blood specimen (specimen) 05/01/2020 7:00 PM EDT 05/01/2020 7:19 PM EDT Narrative Resulting Agency Comment Spec In Lab Jana Trinh MD CHEMISTRY ORDERABLES Performing Organization Address [facility] Co de Phone Number [facility] [place] [address] * (ABNORMAL) Hepatic Function Panel (05/01/2020 7:00 PM EDT) Pathologist [facility] Protein, Total 7.6 6.1 - 8.0 gm/dL [facility] Albumin 3.7 3.2 - 5.2 gm/dL [facility] Aspartate Aminotransferase 54(H) 0 - 39 unit/L [facility] Alanine Aminotransferase 93(H) 0 - 55 unit/L [facility] Alkaline Phosphatase 84 40 - 130 unit/L [facility] Bilirubin, Total 0.3 0.2 - 1.3 mg/dL [facility] Bilirubin, Direct 0.1 0.0 - 0.3 mg/dL [facility] Blood specimen (specimen) 05/01/2020 7:00 PM EDT 05/01/2020 7:19 PM EDT Narrative Resulting Agency Comment Spec In Lab Jana Trinh MD CHEMISTRY ORDERABLES Performing Organization Address [facility] Co de Phone Number [facility] [place] [address] * (ABNORMAL) Urinalysis Microscopic Exam (05/01/2020 6:58 PM EDT) RBC, Urine <1 0 - 3 /HPF [facility] WBC, Urine 1 0 - 3 /HPF [facility] Bacteria, Urine Occasional (A) None /HPF [facility] Squamous Epithelial Cells Raw Data, Urine 2 <=4 /HPF [facility] Hyaline Casts, Urine 2 0 - 2 /LPF [facility] Amorphous Crystals, Urine Many(A) None /HPF [facility] Urine specimen (specimen) 05/01/2020 6:58 PM EDT 05/01/2020 7:11 PM EDT Narrative Resulting Agency Comment Spec In Lab Jana Snow APRN URINE ORDERABLES Performing Organization Address [facility] Co de Phone Number [facility] [place] [address] * (ABNORMAL) Urinalysis with reflex Culture (05/01/2020 6:58 PM EDT) Glucose, Urine Dipstick Negative Negative mg/dL [facility] Protein, Urine Dipstick Trace(A) Negative mg/dL [facility] Bilirubin, Urine Dipstick Negative Negative mg/dL [facility] Comment: Clinical correlation required for positive Urine Bilirubin results as false positive may occur with some drugs and drug related products. If a false positive is suspected a serum total bilirubin should be considered if clinically indicated. Urobilinogen, Urine Dipstick Normal Normal mg/dL [facility] pH, Urn (dipstick) 8.5(H) 5.0 - 8.0 [facility] Blood, Urine Dipstick Negative Negative mg/dL [facility] Ketone, Urine Dipstick Negative Negative mg/dL [facility] Nitrite, Urine Dipstick Negative Negative [facility] Leukocytes, Urine Dipstick Negative Negative [facility] Appearance, Urine Dipstick Turbid(A) Clear [facility] Specific [place] Urine Automated 1.020 1.006 - 1.030 [facility] Color, Urine Dipstick Yellow Yellow [facility] Reflex to Culture No [facility] Urine specimen (specimen) 05/01/2020 6:58 PM EDT 05/01/2020 7:11 PM EDT Narrative Resulting Agency Comment Spec In Lab Jana Snow APRN URINE ORDERABLES Performing Organization Address [facility] Co de Phone Number [facility] [place] [address] * Potassium (05/01/2020 12:35 PM EDT) Potassium 3.9 3.5 - 5.0 mmol/L [facility] Comment: Please note: ??Patients with [...] Trinh MD CHEMISTRY ORDERABLES Performing Organization Address [facility]/ZIP Co de Phone Number [facility] [place] [address] * Duplex for DVT, arm, bilat (05/01/2020 10:31 AM EDT) VB Text Report Department: Vascular Surgery Lab Patient: [id number] (OLLIE BURNETT) CPT: 53777 ICD10: I82.B12;I82.613; I61.5 Referring Physician: JANA TRINH [...] please contact the number below. ? Narrative 05/01/2020 1:22 PM EDT EXAMINATION: CT [...] surrounding edema and unchanged 6 mm of qbbty-[id number] midline shift. Similar appearance of ventriculomegaly at [...] surrounding edema and unchanged 6 mm of tubcp-[id number] midline shift.Similar appearance of ventriculomegaly at the [...] number below. Electronically signed by: Tiny Cervantes [facility] ([phone]),at 05/01/2020 1:22 PM James Shah APRN IMG CT ORDERABLE S * Scan, Peripheral Blood (05/01/2020 12:37 AM EDT) Plat estimate Increased [facility] RBC Morphology Abnormal [facility] Macrocyte 1-5 /HPF [facility] Plat, Giant Less than 1 /HPF [facility] Blood specimen (specimen) 05/01/2020 12:37 AM EDT 05/01/2020 12:57 AM EDT Narrative Resulting Agency Comment Spec In Lab Dennis PA HEMATOLOGY ORDERA BLES [facility] [place] [address] * (ABNORMAL) Differential, Automated (05/01/2020 12:37 AM EDT) Neutrophil % 57.0 % [facility] Neutrophil Absolute 6.25(H) 1.70 - 6.10 x10(3)/mc L [facility] Lymph % 24.5 % [facility] Lymphocytes Abs 2.7 0.9 - 3.2 x10(3)/mc L [facility] Monocyte % 14.9 % [facility] Monocyte Abs 1.6(H) 0.3 - 0.9 x10(3)/mc L [facility] Eos % 1.6 % [facility] Eosinophils Abs 0.2 0.0 - 0.4 x10(3)/mc L [facility] Basophil % 0.5 % [facility] Baso Absolute 0.0 0.0 - 0.1 x10(3)/mc L [facility] Immature Gran % 1.50 % [facility] Comment: Immature granulocytes(IG's)percentage and absolute count will include metamyelocytes, myelocytes, and promyelocytes. Blood smears from CBCs yielding IG's will be scanned manually for concordance. If this scan disagrees with the automated IG or if promyelocytes are noted, a manual differential will be performed. Immature Gran Absolute 0.16(H) 0.00 - 0.04 x10(3)/ L [facility] Blood specimen (specimen) 05/01/2020 12:37 AM EDT 05/01/2020 12:57 AM EDT Narrative Resulting Agency Comment Spec In Lab Dennis PA HEMATOLOGY ORDERA BLES [facility] [place] [address] * (ABNORMAL) Hemogram (05/01/2020 12:37 AM EDT) White Blood Cell 11.0(H) 4.0 - 9.5 x10(3)/[facility] Red Blood Cell 3.78(L) 4.58 - 5.54 x10(6)/[facility] Hemoglobin 12.6(L) 13.7 - 16.5 gm/dL [facility] Hematocrit 37.3(L) 40.5 - 48.5 % [facility] Mean Cell Volume 98.7(H) 82.9 - 93.1 fL [facility] Mean Cell Hemoglobin 33.3(H) 27.5 - 32.1 pg [facility] Mean Cell Hemoglobin Concentration 33.8 32.0 - 35.7 gm/dL [facility] Platelet 378(H) 145 - 357 x10(3)/ L [facility] RDW Standard Deviation 46.7(H) 36.0 - 45.0 fL [facility] RDW coefficient of variation 13.2 11.4 - 13.8 % [facility] Mean Platelet Volume 9.0 7.6 - 12.9 [facility] NRBC% auto 0.0 % [facility] NRBC Absolute 0.000 0.000 - 0.000 x10(3)/ L [facility] Blood specimen (specimen) 05/01/2020 12:37 AM EDT 05/01/2020 12:57 AM EDT Narrative Resulting Agency Comment Spec In Lab Dennis PA HEMATOLOGY ORDERA BLES Performing Organization Address [facility] Co de Phone Number [facility] [place] [address] * Phosphorus (05/01/2020 12:37 AM EDT) Phosphorus 3.5 2.5 - 4.5 mg/dL [facility] Blood specimen (specimen) 05/01/2020 12:37 AM EDT 05/01/2020 12:57 AM EDT Narrative Resulting Agency Comment Spec In Lab Jana Trinh MD CHEMISTRY ORDERABLES Performing Organization Address [facility] de Phone Number [facility] [place] [address] * Magnesium (05/01/2020 12:37 AM EDT) Magnesium 0.95 0.69 - 1.07 mmol/L [facility] Blood specimen (specimen) 05/01/2020 12:37 AM EDT 05/01/2020 12:57 AM EDT Narrative Resulting Agency Comment Spec In Lab Jana Trinh MD CHEMISTRY ORDERABLES Performing Organization Address [facility] Co de Phone Number [facility] [place] [address] * (ABNORMAL) Basic Metabolic Panel (non-fasting) (05/01/2020 12:37 AM EDT) Glucose 152 65 - 199 mg/dL [facility] Comment:Diabetes: >=200 mg/d L plus symptoms Blood Urea Nitrogen 25(H) 10 - 20 mg/dL [facility] Creatinine 0.61(L) 0.80 - 1.50 mg/dL [facility] Sodium 144 135 - 145 mmol/L [facility] Potassium 3.4(L) 3.5 - 5.0 mmol/L [facility] Comment: Please note: ??Patients with WBC >100,000 may have falsely elevated Potassium levels. ??For accurate Potassium quantification in these patients send serum separator tube (gold top) for subsequent determinations. ??Contact the Clinical Chemistry Laboratory if there are any questions. Chloride 104 98 - 107 mmol/L [facility] Carbon Dioxide 26 22 - 31 mmol/L [facility] Anion Gap 14 5 - 15 mmol/L [facility] Calcium 9.2 8.5 - 10.5 mg/dL [facility] Est Glomerular Filtration Rate 108 >=60 mL/min/1. 73 m?? [facility] Comment: The eGFR was calculated using the CKD-EPI equation. As with all creatinine based estimates of kidney function, eGFR values calculated with the CKD-EPI equation are not accurate in patients with acute kidney failure, extremes of body mass or the acutely ill. [email or web address]ER[facility] eGFR 125 >=60 mL/min/1. 73 m?? [facility] Comment: The eGFR was calculated using the CKD-EPI equation. As with all creatinine based estimates of kidney function, eGFR values calculated with the CKD-EPI equation are not accurate in patients with acute kidney failure, extremes of body mass or the acutely ill. [email or web address] Blood specimen (specimen) 05/01/2020 12:37 AM EDT 05/01/2020 12:57 AM EDT Narrative Resulting Agency Comment Spec In Lab Jana Trinh MD CHEMISTRY ORDERABLES [facility] [place] [address] * (ABNORMAL) Differential, Automated (04/30/2020 12:13 AM EDT) Neutrophil % 70.5 % [facility] Neutrophil Absolute 7.22(H) 1.70 - 6.10 x10(3)/[facility] Lymph % 13.8 % [facility] Lymphocytes Abs 1.4 0.9 - 3.2 x10(3)/[facility] Monocyte % 12.8 % [facility] Monocyte Abs 1.3(H) 0.3 - 0.9 x10(3)/[facility] Eos % 1.3 % [facility] Eosinophils Abs 0.1 0.0 - 0.4 x10(3)/[facility] Basophil % 0.4 % [facility] Baso Absolute 0.0 0.0 - 0.1 x10(3)/[facility] Immature Gran % 1.20 % [facility] Comment: Immature granulocytes(IG's)percentage and absolute count will include metamyelocytes, myelocytes, and promyelocytes. Blood smears from CBCs yielding IG's will be scanned manually for concordance. If this scan disagrees with the automated IG or if promyelocytes are noted, a manual differential will be performed. Immature Gran Absolute 0.12(H) 0.00 - 0.04 x10(3)/[facility] Blood specimen (specimen) 04/30/2020 12:13 AM EDT 04/30/2020 12:21 AM EDT Narrative Resulting Agency Comment Spec In Lab Dennis PA HEMATOLOGY ORDERA BLES [facility] [place] [address] * (ABNORMAL) Hemogram (04/30/2020 12:13 AM EDT) White Blood Cell 10.2(H) 4.0 - 9.5 x10(3)/[facility] Red Blood Cell 3.84(L) 4.58 - 5.54 x10(6)/[facility] Hemoglobin 12.9(L) 13.7 - 16.5 gm/dL [facility] Hematocrit 37.5(L) 40.5 - 48.5 % [facility] Mean Cell Volume 97.7(H) 82.9 - 93.1 [facility] Mean Cell Hemoglobin 33.6(H) 27.5 - 32.1 pg [facility] Mean Cell Hemoglobin Concentration 34.4 32.0 - 35.7 gm/dL [facility] Platelet 329 145 - 357 x10(3)/mc L [facility] RDW Standard Deviation 46.2(H) 36.0 - 45.0 [facility] RDW coefficient of variation 12.9 11.4 - 13.8 % [facility] Mean Platelet Volume 8.6 7.6 - 12.9 [facility] NRBC% auto 0.0 % [facility] NRBC Absolute 0.000 0.000 - 0.000 x10(3)/mc L [facility] Blood specimen (specimen) 04/30/2020 12:13 AM EDT 04/30/2020 12:21 AM EDT Narrative Resulting Agency Comment Spec In Lab Dennis PA HEMATOLOGY ORDERA BLES Performing Organization Address City/[facility]/ZIP Co de Phone Number [facility] [place] [address] * Magnesium (04/30/2020 12:13 AM EDT) Magnesium 0.85 0.69 - 1.07 mmol/L [facility] Blood specimen (specimen) 04/30/2020 12:13 AM EDT 04/30/2020 12:21 AM EDT Narrative Resulting Agency Comment Spec In Lab Jana Trihn MD CHEMISTRY ORDERABLES [facility] [place] [address] * (ABNORMAL) Basic Metabolic Panel (non-fasting) (04/30/2020 12:13 AM EDT) Glucose 137 65 - 199 mg/dL [facility] Comment:Diabetes: >=200 mg/d L plus symptoms Blood Urea Nitrogen 18 10 - 20 mg/dL [facility] Creatinine 0.52(L) 0.80 - 1.50 mg/dL [facility] Sodium 138 135 - 145 mmol/L [facility] Potassium 3.9 3.5 - 5.0 mmol/L [facility] Comment: Please note: ??Patients with WBC >100,000 may have falsely elevated Potassium levels. ??For accurate Potassium quantification in these patients send serum separator tube (gold top) for subsequent determinations. ??Contact the Clinical Chemistry Laboratory if there are any questions. Chloride 101 98 - 107 mmol/L [facility] Carbon Dioxide 24 22 - 31 mmol/L [facility] Anion Gap 13 5 - 15 mmol/L [facility] Calcium 9.1 8.5 - 10.5 mg/dL [facility] Est Glomerular Filtration Rate 115 >=60 mL/min/1. 73 m?? [facility] Comment: The eGFR was calculated using the CKD-EPI equation. As with all creatinine based estimates of kidney function, eGFR values calculated with the CKD-EPI equation are not accurate in patients with acute kidney failure, extremes of body mass or the acutely ill. [email or web address] eGFR 133 >=60 mL/min/1. 73 m?? [facility] Comment: The eGFR was calculated using the CKD-EPI equation. As with all creatinine based estimates of kidney function, eGFR values calculated with the CKD-EPI equation are not accurate in patients with acute kidney failure, extremes of body mass or the acutely ill. [email or web address] Blood specimen (specimen) 04/30/2020 12:13 AM EDT 04/30/2020 12:21 AM EDT Narrative Resulting Agency Comment Spec In Lab Jana Trinh MD CHEMISTRY ORDERABLES Performing Organization Address City/[facility]/ZIP Co de Phone Number [facility] [place] [address] * Sodium (04/29/2020 3:47 PM EDT) Sodium 138 135 - 145 mmol/L [facility] Blood specimen (specimen) 04/29/2020 3:47 PM EDT 04/29/2020 3:52 PM EDT Narrative Resulting Agency Comment Spec In Lab Jana Trinh MD CHEMISTRY ORDERABLES Performing Organization Address [facility] Co de Phone Number [facility] [place] [address] * Duplex Study for DVT, Bilat legs (04/29/2020 10:31 AM EDT) VB Text Report Department: Vascular Surgery Lab Patient: [id number] (OLLIE BURNETT) CPT: 02458 ICD10: I61.9;I82.532 Referring Physician: JANA TRINH ?? [...] our vascular lab database for comparison. Consuelo Young MANUFACTURING DIRECTOR was notified of the results. Electronically Signed by: RODRIGO ORDONEZ MD on 2020-05-02 04:15:28 PM [facility] VB Text Report End of Report [facility] 04/29/2020 10:3 1 AM EDT Jana Trinh MD VASCULAR ORDERABLES [facility] * (ABNORMAL) Differential, Automated (04/29/2020 12:19 AM EDT) Neutrophil % 61.4 % [facility] Neutrophil Absolute 5.86 1.70 - 6.10 x10(3)/[facility] Lymph % 22.9 % [facility] Lymphocytes Abs 2.2 0.9 - 3.2 x10(3)/[facility] Monocyte % 13.8 % [facility] Monocyte Abs 1.3(H) 0.3 - 0.9 x10(3)/ L [facility] Eos % 0.4 % [facility] Eosinophils Abs 0.0 0.0 - 0.4 x10(3)/[facility] Basophil % 0.3 % [facility] Baso Absolute 0.0 0.0 - 0.1 x10(3)/[facility] Immature Gran % 1.20 % [facility] Comment: Immature granulocytes(IG's)percentage and absolute count will include metamyelocytes, myelocytes, and promyelocytes. Blood smears from CBCs yielding IG's will be scanned manually for concordance. If this scan disagrees with the automated IG or if promyelocytes are noted, a manual differential will be performed. Immature Gran Absolute 0.11(H) 0.00 - 0.04 x10(3)/ L [facility] Blood specimen (specimen) 04/29/2020 12:19 AM EDT 04/29/2020 12:25 AM EDT Narrative Resulting Agency Comment Spec In Lab Dennis PA HEMATOLOGY ORDERA BLES [facility] [place] [address] * (ABNORMAL) Hemogram (04/29/2020 12:19 AM EDT) White Blood Cell 9.6(H) 4.0 - 9.5 x10(3)/mc L [facility] Red Blood Cell 3.58(L) 4.58 - 5.54 x10(6)/mc L [facility] Hemoglobin 12.1(L) 13.7 - 16.5 gm/dL [facility] Hematocrit 35.2(L) 40.5 - 48.5 % [facility] Mean Cell Volume 98.3(H) 82.9 - 93.1 [facility] Mean Cell Hemoglobin 33.8(H) 27.5 - 32.1 pg [facility] Mean Cell Hemoglobin Concentration 34.4 32.0 - 35.7 gm/dL [facility] Platelet 264 145 - 357 x10(3)/[facility] RDW Standard Deviation 45.7(H) 36.0 - 45.0 [facility] RDW coefficient of variation 12.8 11.4 - 13.8 % [facility] Mean Platelet Volume 8.8 7.6 - 12.9 [facility] NRBC% auto 0.0 % [facility] NRBC Absolute 0.000 0.000 - 0.000 x10(3)/[facility] Blood specimen (specimen) 04/29/2020 12:19 AM EDT 04/29/2020 12:25 AM EDT Narrative Resulting Agency Comment Spec In Lab Dennis PA HEMATOLOGY ORDERA BLES Performing Organization Address City/[facility]/ZIP Co de Phone Number [facility] [place] [address] * Phosphorus (04/29/2020 12:19 AM EDT) Phosphorus 3.8 2.5 - 4.5 mg/dL [facility] Blood specimen (specimen) 04/29/2020 12:19 AM EDT 04/29/2020 12:25 AM EDT Narrative Resulting Agency Comment Spec In Lab Jana Trinh MD CHEMISTRY ORDERABLES Performing Organization Address City/[facility]/ZIP Co de Phone Number [facility] [place] [address] * Magnesium (04/29/2020 12:19 AM EDT) Pathologist [facility] Magnesium 0.85 0.69 - 1.07 mmol/L [facility] Blood specimen (specimen) 04/29/2020 12:19 AM EDT 04/29/2020 12:25 AM EDT Narrative Resulting Agency Comment Spec In Lab Jana Trinh MD CHEMISTRY ORDERABLES Performing Organization Address City/[facility]/ZIP Co de Phone Number [facility] [place] [address] * (ABNORMAL) Basic Metabolic Panel (non-fasting) (04/29/2020 12:19 AM EDT) Glucose 179 65 - 199 mg/dL [facility] Comment:Diabetes: >=200 mg/d L plus symptoms Blood Urea Nitrogen 21(H) 10 - 20 mg/dL [facility] Creatinine 0.57(L) 0.80 - 1.50 mg/dL [facility] Sodium 134(L) 135 - 145 mmol/L [facility] Potassium 3.6 3.5 - 5.0 mmol/L [facility] Comment: Please note: ??Patients with WBC >100,000 may have falsely elevated Potassium levels. ??For accurate Potassium quantification in these patients send serum separator tube (gold top) for subsequent determinations. ??Contact the Clinical Chemistry Laboratory if there are any questions. Chloride 98 98 - 107 mmol/L [facility] Carbon Dioxide 23 22 - 31 mmol/L [facility] Anion Gap 13 5 - 15 mmol/L [facility] Calcium 8.8 8.5 - 10.5 mg/dL [facility] Est Glomerular Filtration Rate 111 >=60 mL/min/1. 73 m?? [facility] Comment: The eGFR was calculated using the CKD-EPI equation. As with all creatinine based estimates of kidney function, eGFR values calculated with the CKD-EPI equation are not accurate in patients with acute kidney failure, extremes of body mass or the acutely ill. http://[facility]ERnkf eGFR 128 >=60 mL/min/1. 73 m?? [facility] Comment: The eGFR was calculated using the CKD-EPI equation. As with all creatinine based estimates of kidney function, eGFR values calculated with the CKD-EPI equation are not accurate in patients with acute kidney failure, extremes of body mass or the acutely ill. [email or web address] Blood specimen (specimen) 04/29/2020 12:19 AM EDT 04/29/2020 12:25 AM EDT Narrative Resulting Agency Comment Spec In Lab Jana Trinh MD CHEMISTRY ORDERABLES Performing Organization Address City/[facility]/ZIP Co de Phone Number [facility] [place] [address] * (ABNORMAL) Sodium (04/28/2020 4:52 PM EDT) Sodium 134(L) 135 - 145 mmol/L [facility] Blood specimen (specimen) 04/28/2020 4:52 PM EDT 04/28/2020 4:57 PM EDT Narrative Resulting Agency Comment Spec In Lab Lynnette Khan APRN CHEMISTRY ORDERAB LES Performing Organization Address City/[facility]/ZIP Co de Phone Number [facility] [place] [address] * (ABNORMAL) Sodium (04/28/2020 10:53 AM EDT) Sodium 130(L) 135 - 145 mmol/L [facility] Blood specimen (specimen) 04/28/2020 10:53 AM EDT 04/28/2020 11:14 AM EDT Narrative Resulting Agency Comment Spec In Lab Lynnette Khan MANUFACTURING DIRECTOR CHEMISTRY ORDERAB LES [facility] [address] [place] [address] * XR Chest One View (04/28/2020 10:51 [...] please contact the number below. ? Narrative 04/28/2020 11:17 AM EDT EXAMINATION: XR [...] RBC, Urine 2 0 - 3 /HPF [facility] WBC, Urine 1 0 - 3 /HPF [facility] Bacteria, Urine Rare(A) None /HPF [facility] Hyaline Casts, Urine 1 0 - 2 /LPF [facility] Urine specimen (specimen) 04/28/2020 10:06 AM EDT 04/28/2020 11:43 AM EDT Narrative Resulting Agency Comment Spec In Lab Lynnette Khan APRN URINE ORDERABLES [facility] [place] [address] * (ABNORMAL) Urinalysis with reflex Culture (04/28/2020 10:06 AM EDT) Glucose, Urine Dipstick Negative Negative mg/dL [facility] Protein, Urine Dipstick Trace(A) Negative mg/dL [facility] Bilirubin, Urine Dipstick Negative Negative mg/dL [facility] Comment: Clinical correlation required for positive Urine Bilirubin results as false positive may occur with some drugs and drug related products. If a false positive is suspected a serum total bilirubin should be considered if clinically indicated. Urobilinogen, Urine Dipstick Normal Normal mg/dL [facility] pH, Urn (dipstick) 8.0 5.0 - 8.0 [facility] Blood, Urine Dipstick Negative Negative mg/dL [facility] Ketone, Urine Dipstick Negative Negative mg/dL [facility] Nitrite, Urine Dipstick Negative Negative [facility] Leukocytes, Urine Dipstick Negative Negative [facility] Appearance, Urine Dipstick Clear Clear [facility] Specific [place] Urine Automated 1.019 1.006 - 1.030 [facility] Color, Urine Dipstick Yellow Yellow [facility] Reflex to Culture No [facility] Urine specimen (specimen) 04/28/2020 10:06 AM EDT 04/28/2020 11:43 AM EDT Narrative Resulting Agency Comment Spec In Lab Lynnette Khan APRN URINE ORDERABLES [facility] [place] [address] * Blood culture (04/28/2020 9:45 AM EDT) Blood Culture No growth at 5 days. [facility] Blood specimen (specimen) ANTECUBITAL REGION STRUCTURE / Unknown 04/28/2020 9:45 AM EDT 04/28/2020 11:12 AM EDT Narrative Resulting Agency Comment Spec In Lab Lynnette Khan APRN MICROBIOLOGY - BL OOD ORDERABLES [facility] [place] [address] * Blood culture (04/28/2020 9:40 AM EDT) Pathologist [facility] Blood Culture No growth at 5 days. [facility] Blood specimen (specimen) ANTECUBITAL REGION STRUCTURE / Unknown 04/28/2020 9:40 AM EDT 04/28/2020 11:06 AM EDT Narrative Resulting Agency Comment Spec In Lab Lynnette Khan APRN MICROBIOLOGY - BL OOD ORDERABLES Performing Organization Address City/[facility] Co de Phone Number [facility] [place] [address] * (ABNORMAL) Differential, Automated (04/28/2020 4:30 AM EDT) Pathologist [facility] Neutrophil % 69.3 % [facility] Neutrophil Absolute 5.82 1.70 - 6.10 x10(3)/mc L [facility] Lymph % 18.3 % [facility] Lymphocytes Abs 1.5 0.9 - 3.2 x10(3)/mc L [facility] Monocyte % 10.8 % [facility] Monocyte Abs 0.9 0.3 - 0.9 x10(3)/mc L [facility] Eos % 0.6 % [facility] Eosinophils Abs 0.0 0.0 - 0.4 x10(3)/mc L [facility] Basophil % 0.2 % [facility] Baso Absolute 0.0 0.0 - 0.1 x10(3)/mc L [facility] Immature Gran % 0.80 % [facility] Comment: Immature granulocytes(IG's)percentage and absolute count will include metamyelocytes, myelocytes, and promyelocytes. Blood smears from CBCs yielding IG's will be scanned manually for concordance. If this scan disagrees with the automated IG or if promyelocytes are noted, a manual differential will be performed. Immature Gran Absolute 0.07(H) 0.00 - 0.04 x10(3)/ L [facility] Blood specimen (specimen) 04/28/2020 4:30 AM EDT 04/28/2020 4:38 AM EDT Narrative Resulting Agency Comment Spec In Lab Dennis PA HEMATOLOGY ORDERA BLES [facility] [place] [address] * (ABNORMAL) Hemogram (04/28/2020 4:30 AM EDT) White Blood Cell 8.4 4.0 - 9.5 x10(3)/[facility] LABORATORY Red Blood Cell 3.90(L) 4.58 - 5.54 x10(6)/mc L [facility] Hemoglobin 13.1(L) 13.7 - 16.5 gm/dL [facility] Hematocrit 37.3(L) 40.5 - 48.5 % [facility] Mean Cell Volume 95.6(H) 82.9 - 93.1 fL [facility] Mean Cell Hemoglobin 33.6(H) 27.5 - 32.1 pg [facility] Mean Cell Hemoglobin Concentration 35.1 32.0 - 35.7 gm/dL [facility] Platelet 244 145 - 357 x10(3)/ L [facility] RDW Standard Deviation 42.7 36.0 - 45.0 [facility] LABORATORY RDW coefficient of variation 12.3 11.4 - 13.8 % [facility] Mean Platelet Volume 8.6 7.6 - 12.9 [facility] LABORATORY NRBC% auto 0.0 % [facility] NRBC Absolute 0.000 0.000 - 0.000 x10(3)/mc L [facility] Blood specimen (specimen) 04/28/2020 4:30 AM EDT 04/28/2020 4:38 AM EDT Narrative Resulting Agency Comment Spec In Lab Dennis PA HEMATOLOGY ORDERA BLES Performing Organization Address City/[facility]/ZIP Co de Phone Number [facility] [place] [address] * (ABNORMAL) Phosphorus (04/28/2020 4:30 AM EDT) Phosphorus 2.4(L) 2.5 - 4.5 mg/dL [facility] Blood specimen (specimen) 04/28/2020 4:30 AM EDT 04/28/2020 4:38 AM EDT Narrative Resulting Agency Comment Spec In Lab Jana Trinh MD CHEMISTRY ORDERABLES Performing Organization Address [facility]/ZIP Co de Phone Number [facility] [place] [address] * Magnesium (04/28/2020 4:30 AM EDT) Magnesium 0.91 0.69 - 1.07 mmol/L [facility] Blood specimen (specimen) 04/28/2020 4:30 AM EDT 04/28/2020 4:38 AM EDT Narrative Resulting Agency Comment Spec In Lab Jana Trinh MD CHEMISTRY ORDERABLES Performing Organization Address [facility]/ZIP Co de Phone Number [facility] [place] [address] * (ABNORMAL) Basic Metabolic Panel (non-fasting) (04/28/2020 4:30 AM EDT) Glucose 149 65 - 199 mg/dL [facility] Comment:Diabetes: >=200 mg/d L plus symptoms Blood Urea Nitrogen 17 10 - 20 mg/dL [facility] Creatinine 0.43(L) 0.80 - 1.50 mg/dL [facility] Sodium 131(L) 135 - 145 mmol/L [facility] Potassium 4.1 3.5 - 5.0 mmol/L [facility] Comment: Please note: ??Patients with WBC >100,000 may have falsely elevated Potassium levels. ??For accurate Potassium quantification in these patients send serum separator tube (gold top) for subsequent determinations. ??Contact the Clinical Chemistry Laboratory if there are any questions. Chloride 98 98 - 107 mmol/L [facility] Carbon Dioxide 20(L) 22 - 31 mmol/L [facility] Anion Gap 13 5 - 15 mmol/L [facility] Calcium 8.8 8.5 - 10.5 mg/dL [facility] Comment:result rechecked- Est Glomerular Filtration Rate 124 >=60 mL/min/1. 73 m?? [facility] Comment: The eGFR was calculated using the CKD-EPI equation. As with all creatinine based estimates of kidney function, eGFR values calculated with the CKD-EPI equation are not accurate in patients with acute kidney failure, extremes of body mass or the acutely ill. [email or web address] eGFR 144 >=60 mL/min/1. 73 m?? [facility] Comment: The eGFR was calculated using the CKD-EPI equation. As with all creatinine based estimates of kidney function, eGFR values calculated with the CKD-EPI equation are not accurate in patients with acute kidney failure, extremes of body mass or the acutely ill. [email or web address] Blood specimen (specimen) 04/28/2020 4:30 AM EDT 04/28/2020 4:38 AM EDT Narrative Resulting Agency Comment Spec In Lab Jana Trinh MD CHEMISTRY ORDERABLES [facility] [place] [address] * (ABNORMAL) Sodium (04/27/2020 10:24 PM EDT) Sodium 133(L) 135 - 145 mmol/L [facility] Blood specimen (specimen) 04/27/2020 10:24 PM EDT 04/27/2020 10:50 PM EDT Narrative Resulting Agency Comment Spec In Lab Lynnette Louisa Khan MANUFACTURING DIRECTOR CHEMISTRY ORDERAB LES [facility] [place] [address] * CT Head wo Contrast (Generic) (04/27/2020 [...] EDT) Sodium 133(L) 135 - 145 mmol/L [facility] Blood specimen (specimen) 04/27/2020 2:30 PM EDT 04/27/2020 2:37 PM EDT Narrative Resulting Agency Comment Spec In Lab Lynnette Khan APRN CHEMISTRY ORDERAB LES Performing Organization Address City/[facility]/ZIP Co de Phone Number [facility] [place] [address] * Osmolality, urine, random (04/27/2020 6:58 AM EDT) Osmolality, Urine 447 50 - 1,200 mOsm/kg [facility] Urine specimen (specimen) 04/27/2020 6:58 AM EDT 04/27/2020 7:12 AM EDT Narrative Resulting Agency Comment Spec In Lab Jana Trinh MD URINE ORDERABLES Performing Organization Address [facility]/ZIP Co de Phone Number [facility] [place] [address] * Sodium, urine, random (04/27/2020 6:58 AM EDT) Sodium, Urine 170 mmol/L [facility] Urine specimen (specimen) 04/27/2020 6:58 AM EDT 04/27/2020 7:08 AM EDT Narrative Resulting Agency Comment Spec In Lab Jana Trinh MD URINE ORDERABLES Performing Organization Address [facility]/ZIP Co de Phone Number [facility] [place] [address] * (ABNORMAL) Sodium (04/27/2020 6:35 AM EDT) [facility] Sodium 129(L) 135 - 145 mmol/L [facility] Blood specimen (specimen) 04/27/2020 6:35 AM EDT 04/27/2020 6:58 AM EDT Narrative Resulting Agency Comment Spec In Lab Jana Trinh MD CHEMISTRY ORDERABLES Performing Organization Address [facility] Co de Phone Number [facility] [place] [address] * Osmolality (04/27/2020 2:15 AM EDT) [facility] Osmolality 276 275 - 295 mOsm/kg [facility] Blood specimen (specimen) Venous Draw / Unknown 04/27/2020 2:15 AM EDT 04/27/2020 2:37 AM EDT Narrative Resulting Agency Comment Spec In Lab Dennis PA CHEMISTRY ORDERAB LES Performing Organization Address City/[facility]/ZIP Co de Phone Number [facility] [place] [address] * Differential, Automated (04/27/2020 2:15 AM EDT) [facility] Neutrophil % 57.4 % [facility] Neutrophil Absolute 4.03 1.70 - 6.10 x10(3)/[facility] LABORATORY Lymph % 27.6 % [facility] Lymphocytes Abs 1.9 0.9 - 3.2 x10(3)/[facility] LABORATORY Monocyte % 12.4 % [facility] Monocyte Abs 0.9 0.3 - 0.9 x10(3)/[facility] LABORATORY Eos % 1.9 % [facility] Eosinophils Abs 0.1 0.0 - 0.4 x10(3)/[facility] LABORATORY Basophil % 0.3 % [facility] Baso Absolute 0.0 0.0 - 0.1 x10(3)/[facility] LABORATORY Immature Gran % 0.40 % [facility] Comment: Immature granulocytes(IG's)percentage and absolute count will include metamyelocytes, myelocytes, and promyelocytes. Blood smears from CBCs yielding IG's will be scanned manually for concordance. If this scan disagrees with the automated IG or if promyelocytes are noted, a manual differential will be performed. Immature Gran Absolute 0.03 0.00 - 0.04 x10(3)/[facility] LABORATORY Blood specimen (specimen) 04/27/2020 2:15 AM EDT 04/27/2020 2:26 AM EDT Narrative Resulting Agency Comment Spec In Lab Dennis PA HEMATOLOGY ORDERA BLES [facility] [place] [address] * (ABNORMAL) Hemogram (04/27/2020 2:15 AM EDT) White Blood Cell 7.0 4.0 - 9.5 x10(3)/[facility] LABORATORY Red Blood Cell 3.37(L) 4.58 - 5.54 x10(6)/[facility] LABORATORY Hemoglobin 11.3(L) 13.7 - 16.5 gm/dL [facility] Hematocrit 33.0(L) 40.5 - 48.5 % [facility] Mean Cell Volume 97.9(H) 82.9 - 93.1 fL [facility] Mean Cell Hemoglobin 33.5(H) 27.5 - 32.1 pg [facility] Mean Cell Hemoglobin Concentration 34.2 32.0 - 35.7 gm/dL [facility] Platelet 189 145 - 357 x10(3)/mc L [facility] RDW Standard Deviation 44.3 36.0 - 45.0 [facility] LABORATORY RDW coefficient of variation 12.3 11.4 - 13.8 % [facility] Mean Platelet Volume 9.1 7.6 - 12.9 [facility] LABORATORY NRBC% auto 0.0 % [facility] NRBC Absolute 0.000 0.000 - 0.000 x10(3)/mc L [facility] Blood specimen (specimen) 04/27/2020 2:15 AM EDT 04/27/2020 2:26 AM EDT Narrative Resulting Agency Comment Spec In Lab Dennis PA HEMATOLOGY ORDERA BLES [facility] [place] [address] * (ABNORMAL) Phosphorus (04/27/2020 2:15 AM EDT) Phosphorus 2.1(L) 2.5 - 4.5 mg/dL [facility] Blood specimen (specimen) 04/27/2020 2:15 AM EDT 04/27/2020 2:26 AM EDT Narrative Resulting Agency Comment Spec In Lab Jana Trinh MD CHEMISTRY ORDERABLES [facility] [place] [address] * Magnesium (04/27/2020 2:15 AM EDT) Magnesium 0.90 0.69 - 1.07 mmol/L [facility] Blood specimen (specimen) 04/27/2020 2:15 AM EDT 04/27/2020 2:26 AM EDT Narrative Resulting Agency Comment Spec In Lab Jana Trinh MD CHEMISTRY ORDERABLES [facility] [place] [address] * (ABNORMAL) Basic Metabolic Panel (non-fasting) (04/27/2020 2:15 AM EDT) Glucose 137 65 - 199 mg/dL [facility] Comment:Diabetes: >=200 mg/d L plus symptoms Blood Urea Nitrogen 12 10 - 20 mg/dL [facility] Creatinine 0.42(L) 0.80 - 1.50 mg/dL [facility] Sodium 133(L) 135 - 145 mmol/L [facility] Potassium 3.8 3.5 - 5.0 mmol/L [facility] Comment: Please note: ??Patients with WBC >100,000 may have falsely elevated Potassium levels. ??For accurate Potassium quantification in these patients send serum separator tube (gold top) for subsequent determinations. ??Contact the Clinical Chemistry Laboratory if there are any questions. Chloride 99 98 - 107 mmol/L [facility] Carbon Dioxide 23 22 - 31 mmol/L [facility] Anion Gap 11 5 - 15 mmol/L [facility] Calcium 8.0(L) 8.5 - 10.5 mg/dL [facility] Est Glomerular Filtration Rate 126 >=60 mL/min/1. 73 m?? [facility] Comment: The eGFR was calculated using the CKD-EPI equation. As with all creatinine based estimates of kidney function, eGFR values calculated with the CKD-EPI equation are not accurate in patients with acute kidney failure, extremes of body mass or the acutely ill. [email or web address] eGFR 146 >=60 mL/min/1. 73 m?? [facility] Comment: The eGFR was calculated using the CKD-EPI equation. As with all creatinine based estimates of kidney function, eGFR values calculated with the CKD-EPI equation are not accurate in patients with acute kidney failure, extremes of body mass or the acutely ill. [email or web address] Blood specimen (specimen) 04/27/2020 2:15 AM EDT 04/27/2020 2:26 AM EDT Narrative Resulting Agency Comment Spec In Lab Jana Trinh MD CHEMISTRY ORDERABLES [facility] [place] [address] * XR Abdomen 1 view (Generic) (04/26/2020 [...] ORDERABLES * Potassium (04/26/2020 6:40 AM EDT) Pathologist [facility] Potassium 3.6 3.5 - 5.0 mmol/L [facility] Comment: Please note: ??Patients with [...] In Lab Jana Trinh MD CHEMISTRY ORDERABLES [facility] [place] [address] * Differential, Automated (04/26/2020 1:50 AM EDT) Neutrophil % 67.1 % [facility] Neutrophil Absolute 5.71 1.70 - 6.10 x10(3)/mcL [facility] Lymph % 23.3 % [facility] Lymphocytes Abs 2.0 0.9 - 3.2 x10(3)/[facility] LABORATORY Monocyte % 8.4 % [facility] Monocyte Abs 0.7 0.3 - 0.9 x10(3)/[facility] LABORATORY Eos % 0.9 % [facility] Eosinophils Abs 0.1 0.0 - 0.4 x10(3)/[facility] LABORATORY Basophil % 0.1 % [facility] Baso Absolute 0.0 0.0 - 0.1 x10(3)/[facility] LABORATORY Immature Gran % 0.20 % [facility] Comment: Immature granulocytes(IG's)percentage and absolute count will include metamyelocytes, myelocytes, and promyelocytes. Blood smears from CBCs yielding IG's will be scanned manually for concordance. If this scan disagrees with the automated IG or if promyelocytes are noted, a manual differential will be performed. Immature Gran Absolute 0.02 0.00 - 0.04 x10(3)/[facility] LABORATORY Blood specimen (specimen) 04/26/2020 1:50 AM EDT 04/26/2020 1:53 AM EDT Narrative Resulting Agency Comment Spec In Lab Dennis PA HEMATOLOGY ORDERA BLES [facility] [place] [address] * (ABNORMAL) Hemogram (04/26/2020 1:50 AM EDT) White Blood Cell 8.5 4.0 - 9.5 x10(3)/[facility] LABORATORY Red Blood Cell 3.46(L) 4.58 - 5.54 x10(6)/[facility] LABORATORY Hemoglobin 11.6(L) 13.7 - 16.5 gm/dL [facility] Hematocrit 33.8(L) 40.5 - 48.5 % [facility] Mean Cell Volume 97.7(H) 82.9 - 93.1 fL [facility] Mean Cell Hemoglobin 33.5(H) 27.5 - 32.1 pg [facility] Mean Cell Hemoglobin Concentration 34.3 32.0 - 35.7 gm/dL [facility] Platelet 157 145 - 357 x10(3)/mc L [facility] RDW Standard Deviation 44.9 36.0 - 45.0 fL [facility] RDW coefficient of variation 12.6 11.4 - 13.8 % [facility] Mean Platelet Volume 9.0 7.6 - 12.9 fL [facility] NRBC% auto 0.0 % [facility] NRBC Absolute 0.000 0.000 - 0.000 x10(3)/mc L [facility] Blood specimen (specimen) 04/26/2020 1:50 AM EDT 04/26/2020 1:53 AM EDT Narrative Resulting Agency Comment Spec In Lab Dennis PA HEMATOLOGY ORDERA BLES Performing Organization Address [facility]/ZIP Co de Phone Number [facility] [place] [address] * Phosphorus (04/26/2020 1:50 AM EDT) Phosphorus 3.1 2.5 - 4.5 mg/dL [facility] Blood specimen (specimen) 04/26/2020 1:50 AM EDT 04/26/2020 1:53 AM EDT Narrative Resulting Agency Comment Spec In Lab Jana Trinh MD CHEMISTRY ORDERABLES Performing Organization Address [facility]/ZIP Co de Phone Number [facility] [place] [address] * Magnesium (04/26/2020 1:50 AM EDT) Magnesium 0.78 0.69 - 1.07 mmol/L [facility] Blood specimen (specimen) 04/26/2020 1:50 AM EDT 04/26/2020 1:53 AM EDT Narrative Resulting Agency Comment Spec In Lab Jana Trinh MD CHEMISTRY ORDERABLES [facility] [place] [address] * (ABNORMAL) Basic Metabolic Panel (non-fasting) (04/26/2020 1:50 AM EDT) Glucose 105 65 - 199 mg/dL [facility] Comment:Diabetes: >=200 mg/d L plus symptoms Blood Urea Nitrogen 13 10 - 20 mg/dL [facility] Creatinine 0.43(L) 0.80 - 1.50 mg/dL [facility] Sodium 136 135 - 145 mmol/L [facility] Potassium 3.7 3.5 - 5.0 mmol/L [facility] Comment: Please note: ??Patients with WBC >100,000 may have falsely elevated Potassium levels. ??For accurate Potassium quantification in these patients send serum separator tube (gold top) for subsequent determinations. ??Contact the Clinical Chemistry Laboratory if there are any questions. Chloride 103 98 - 107 mmol/L [facility] Carbon Dioxide 25 22 - 31 mmol/L [facility] Anion Gap 8 5 - 15 mmol/L [facility] Calcium 7.9(L) 8.5 - 10.5 mg/dL [facility] Est Glomerular Filtration Rate 124 >=60 mL/min/1. 73 m?? [facility] Comment: The eGFR was calculated using the CKD-EPI equation. As with all creatinine based estimates of kidney function, eGFR values calculated with the CKD-EPI equation are not accurate in patients with acute kidney failure, extremes of body mass or the acutely ill. [email or web address] eGFR 144 >=60 mL/min/1. 73 m?? [facility] Comment: The eGFR was calculated using the CKD-EPI equation. As with all creatinine based estimates of kidney function, eGFR values calculated with the CKD-EPI equation are not accurate in patients with acute kidney failure, extremes of body mass or the acutely ill. [email or web address] Blood specimen (specimen) 04/26/2020 1:50 AM EDT 04/26/2020 1:53 AM EDT Narrative Resulting Agency Comment Spec In Lab Jana Trinh MD CHEMISTRY ORDERABLES [facility] [place] [address] * XR Abdomen 1 view (Generic) (04/25/2020 [...] CT chest, abdomen, and pelvis 04/20/[address] [facility]. FINDINGS: Distal tip of enteric tube [...] CT chest, abdomen, and pelvis 04/20/2020 from [facility]. FINDINGS: Distal tip of enteric [...] please contact the number below. [place] MANUFACTURING DIRECTOR IMG DX ORDERABLES * (ABNORMAL) BLOOD GAS 2 ARTERIAL (04/25/2020 2:09 PM EDT) pH, Arterial 7.48(H) 7.35 - 7.45 [facility] PCO2, Arterial 32(L) 35 - 45 mmHg [facility] PO2, Arterial 93 85 - 104 mmHg [facility] Bicarbonate, Arterial 23.2 20.0 - 26.0 mmol/L [facility] Base Excess, Arterial -0.3 -3.0 - 3.0 mmol/L [facility] Hgb Blood Gas 13.6(L) 13.7 - 16.5 gm/dL [facility] Oxyhemoglobin, Arterial 96.3 94.0 - 97.0 % [facility] Carboxyhemoglob in, Arterial 0.3 % [facility] Comment: Nonsmokers: 0.5-1.5% COHB Smokers: Variable, but usually less than 10% Toxic: 20-30% COHB Lethal: Greater than 60% COHB Methemoglobin, Arterial 0.6 <=1.5 % [facility] Na Whole Blood 132(L) 135 - 145 mmol/L [facility] K Whole Blood 3.9 3.5 - 5.0 mmol/L [facility] Comment: Please note: Patients with WBC >100,000 may have falsely elevated Potassium levels. Contact the Clinical Chemistry Laboratory if there are any questions. ICa Whole Blood 1.14(L) 1.15 - 1.33 mmol/L [facility] Comment: Note: ??Total bilirubin higher than 20 mg/dL may lead to falsely low ionized calcium. CL Whole Blood 104 98 - 107 mmol/L [facility] Gluc Whole Bld 131 65 - 199 mg/dL [facility] Comment:Diabetes: >=200 mg/d L plus symptoms. Lactate WB 1.2 0.5 - 2.2 mmol/L [facility] FIO2 Art 25 % [facility] PF Ratio Art 372 [facility] Temp Art 36.6 Celsius [facility] Blood specimen (specimen) 04/25/2020 2:09 PM EDT 04/25/2020 2:09 PM EDT Jana Trinh MD POINT OF CARE TEST O RDERABLES Performing Organization Address City/[facility]/ZIP Co de Phone Number [facility] [place] [address] * POCT Glucose (04/25/2020 1:43 PM EDT) Pathologist [facility] Glucose, POC 140 65 - 199 mg/dL [facility] Comment: Supplemental ranges: <140 mg/dL before meals <180 mg/dL all other times of the day Blood specimen (specimen) 04/25/2020 1:43 PM EDT 04/25/2020 1:43 PM EDT Jana Trinh MD POINT OF CARE TEST O RDERAKEYSHAWN Performing Organization Address City/[facility]/ZIP Co de Phone Number [facility] [place] [address] * (ABNORMAL) Differential, Automated (04/25/2020 1:10 AM EDT) [facility] Neutrophil % 78.8 % [facility] Neutrophil Absolute 8.88(H) 1.70 - 6.10 x10(3)/mc L [facility] Lymph % 10.0 % [facility] Lymphocytes Abs 1.1 0.9 - 3.2 x10(3)/mc L [facility] Monocyte % 10.3 % [facility] Monocyte Abs 1.2(H) 0.3 - 0.9 x10(3)/mc L [facility] Eos % 0.3 % [facility] Eosinophils Abs 0.0 0.0 - 0.4 x10(3)/mc L [facility] Basophil % 0.2 % [facility] Baso Absolute 0.0 0.0 - 0.1 x10(3)/mc L [facility] Immature Gran % 0.40 % [facility] Comment: Immature granulocytes(IG's)percentage and absolute count will include metamyelocytes, myelocytes, and promyelocytes. Blood smears from CBCs yielding IG's will be scanned manually for concordance. If this scan disagrees with the automated IG or if promyelocytes are noted, a manual differential will be performed. Immature Gran Absolute 0.05(H) 0.00 - 0.04 x10(3)/ L [facility] Blood specimen (specimen) 04/25/2020 1:10 AM EDT 04/25/2020 1:19 AM EDT Narrative Resulting Agency Comment Spec In Lab Dennis PA HEMATOLOGY ORDERA BLES [facility] [place] [address] * (ABNORMAL) Hemogram (04/25/2020 1:10 AM EDT) White Blood Cell 11.3(H) 4.0 - 9.5 x10(3)/ L [facility] Red Blood Cell 3.54(L) 4.58 - 5.54 x10(6)/mc L [facility] Hemoglobin 12.0(L) 13.7 - 16.5 gm/dL [facility] Hematocrit 34.8(L) 40.5 - 48.5 % [facility] Mean Cell Volume 98.3(H) 82.9 - 93.1 fL [facility] Mean Cell Hemoglobin 33.9(H) 27.5 - 32.1 pg [facility] Mean Cell Hemoglobin Concentration 34.5 32.0 - 35.7 gm/dL [facility] Platelet 141(L) 145 - 357 x10(3)/ L [facility] RDW Standard Deviation 45.7(H) 36.0 - 45.0 fL [facility] RDW coefficient of variation 12.7 11.4 - 13.8 % [facility] Mean Platelet Volume 9.0 7.6 - 12.9 fL [facility] NRBC% auto 0.0 % [facility] NRBC Absolute 0.000 0.000 - 0.000 x10(3)/mc L [facility] Blood specimen (specimen) 04/25/2020 1:10 AM EDT 04/25/2020 1:19 AM EDT Narrative Resulting Agency Comment Spec In Lab Dennis PA HEMATOLOGY ORDERA BLES [facility] [place] [address] * (ABNORMAL) Phosphorus (04/25/2020 1:10 AM EDT) Phosphorus 2.1(L) 2.5 - 4.5 mg/dL [facility] Blood specimen (specimen) 04/25/2020 1:10 AM EDT 04/25/2020 1:19 AM EDT Narrative Resulting Agency Comment Spec In Lab Jana Trinh MD CHEMISTRY ORDERABLES Performing Organization Address [facility] Co de Phone Number [facility] [place] [address] * Magnesium (04/25/2020 1:10 AM EDT) Magnesium 0.84 0.69 - 1.07 mmol/L [facility] Blood specimen (specimen) 04/25/2020 1:10 AM EDT 04/25/2020 1:19 AM EDT Narrative Resulting Agency Comment Spec In Lab Jana Trinh MD CHEMISTRY ORDERABLES Performing Organization Address [facility] Co de Phone Number [facility] [place] [address] * (ABNORMAL) Basic Metabolic Panel (non-fasting) (04/25/2020 1:10 AM EDT) Glucose 200(H) 65 - 199 mg/dL [facility] Comment:Diabetes: >=200 mg/d L plus symptoms Blood Urea Nitrogen 14 10 - 20 mg/dL [facility] Creatinine 0.43(L) 0.80 - 1.50 mg/dL [facility] Sodium 138 135 - 145 mmol/L [facility] Potassium 3.7 3.5 - 5.0 mmol/L [facility] Comment: Please note: ??Patients with WBC >100,000 may have falsely elevated Potassium levels. ??For accurate Potassium quantification in these patients send serum separator tube (gold top) for subsequent determinations. ??Contact the Clinical Chemistry Laboratory if there are any questions. Chloride 104 98 - 107 mmol/L [facility] Carbon Dioxide 24 22 - 31 mmol/L [facility] Anion Gap 10 5 - 15 mmol/L [facility] Calcium 8.1(L) 8.5 - 10.5 mg/dL [facility] Est Glomerular Filtration Rate 124 >=60 mL/min/1. 73 m?? [facility] Comment: The eGFR was calculated using the CKD-EPI equation. As with all creatinine based estimates of kidney function, eGFR values calculated with the CKD-EPI equation are not accurate in patients with acute kidney failure, extremes of body mass or the acutely ill. [email or web address] eGFR 144 >=60 mL/min/1. 73 m?? [facility] Comment: The eGFR was calculated using the CKD-EPI equation. As with all creatinine based estimates of kidney function, eGFR values calculated with the CKD-EPI equation are not accurate in patients with acute kidney failure, extremes of body mass or the acutely ill. [email or web address] Blood specimen (specimen) 04/25/2020 1:10 AM EDT 04/25/2020 1:19 AM EDT Narrative Resulting Agency Comment Spec In Lab Jana Trinh MD CHEMISTRY ORDERABLES [facility] [place] [address] * POCT Glucose (04/24/2020 11:33 AM EDT) Glucose, POC 164 65 - 199 mg/dL [facility] Comment: Supplemental ranges: <140 mg/dL before meals <180 mg/dL all other times of the day Blood specimen (specimen) 04/24/2020 11:33 AM EDT 04/24/2020 11:33 AM EDT Jana Trinh MD POINT OF CARE TEST O RDERABLES Performing Organization Address [facility] Co de Phone Number [facility] [place] [address] * Potassium (04/24/2020 11:30 AM EDT) Potassium 3.7 3.5 - 5.0 mmol/L [facility] Comment: Please note: ??Patients with [...] Trinh MD CHEMISTRY ORDERABLES Performing Organization Address [facility] Co de Phone Number [facility] [place] [address] * POCT Glucose (04/24/2020 7:40 AM EDT) Glucose, POC 135 65 - 199 mg/dL [facility] Comment: Supplemental ranges: <140 mg/dL before meals <180 mg/dL all other times of the day Blood specimen (specimen) 04/24/2020 7:40 AM EDT 04/24/2020 7:40 AM EDT Jana Trinh MD POINT OF CARE TEST O RDERABLES [facility] [place] [address] * XR Chest One View (04/24/2020 5:35 [...] report, please contact the number below. James Eliza Sajielena SHAWN IMG DX ORDERABLE S * (ABNORMAL) Differential, Automated (04/24/2020 2:15 AM EDT) Neutrophil % 69.5 % [facility] Neutrophil Absolute 7.00(H) 1.70 - 6.10 x10(3)/ L [facility] Lymph % 19.0 % [facility] Lymphocytes Abs 1.9 0.9 - 3.2 x10(3)/[facility] Monocyte % 10.7 % [facility] Monocyte Abs 1.1(H) 0.3 - 0.9 x10(3)/[facility] Eos % 0.2 % [facility] Eosinophils Abs 0.0 0.0 - 0.4 x10(3)/[facility] Basophil % 0.2 % [facility] Baso Absolute 0.0 0.0 - 0.1 x10(3)/[facility] Immature Gran % 0.40 % [facility] Comment: Immature granulocytes(IG's)percentage and absolute count will include metamyelocytes, myelocytes, and promyelocytes. Blood smears from CBCs yielding IG's will be scanned manually for concordance. If this scan disagrees with the automated IG or if promyelocytes are noted, a manual differential will be performed. Immature Gran Absolute 0.04 0.00 - 0.04 x10(3)/ L [facility] Blood specimen (specimen) 04/24/2020 2:15 AM EDT 04/24/2020 2:26 AM EDT Narrative Resulting Agency Comment Spec In Lab Dennis PA HEMATOLOGY ORDERA BLES [facility] [place] [address] * (ABNORMAL) Hemogram (04/24/2020 2:15 AM EDT) [facility] White Blood Cell 10.1(H) 4.0 - 9.5 x10(3)/[facility] Red Blood Cell 3.69(L) 4.58 - 5.54 x10(6)/[facility] Hemoglobin 12.3(L) 13.7 - 16.5 gm/dL [facility] Hematocrit 36.4(L) 40.5 - 48.5 % [facility] Mean Cell Volume 98.6(H) 82.9 - 93.1 fL [facility] Mean Cell Hemoglobin 33.3(H) 27.5 - 32.1 pg [facility] Mean Cell Hemoglobin Concentration 33.8 32.0 - 35.7 gm/dL [facility] Platelet 143(L) 145 - 357 x10(3)/[facility] RDW Standard Deviation 45.6(H) 36.0 - 45.0 [facility] RDW coefficient of variation 12.6 11.4 - 13.8 % [facility] Mean Platelet Volume 9.3 7.6 - 12.9 [facility] NRBC% auto 0.0 % [facility] NRBC Absolute 0.000 0.000 - 0.000 x10(3)/[facility] Blood specimen (specimen) 04/24/2020 2:15 AM EDT 04/24/2020 2:26 AM EDT Narrative Resulting Agency Comment Spec In Lab Dennis PA HEMATOLOGY ORDERA BLES [facility] [place] [address] * (ABNORMAL) Phosphorus (04/24/2020 2:15 AM EDT) [facility] Phosphorus 1.8(L) 2.5 - 4.5 mg/dL [facility] Blood specimen (specimen) 04/24/2020 2:15 AM EDT 04/24/2020 2:26 AM EDT Narrative Resulting Agency Comment Spec In Lab Jana Trinh MD CHEMISTRY ORDERABLES Performing Organization Address [facility]/ZIP Co de Phone Number [facility] [place] [address] * Magnesium (04/24/2020 2:15 AM EDT) [facility] Magnesium 0.84 0.69 - 1.07 mmol/L [facility] Blood specimen (specimen) 04/24/2020 2:15 AM EDT 04/24/2020 2:26 AM EDT Narrative Resulting Agency Comment Spec In Lab Jana Trinh MD CHEMISTRY ORDERABLES Performing Organization Address [facility] Co de Phone Number [facility] [place] [address] * (ABNORMAL) Basic Metabolic Panel (non-fasting) (04/24/2020 2:15 AM EDT) [facility] Glucose 163 65 - 199 mg/dL [facility] Comment:Diabetes: >=200 mg/d L plus symptoms Blood Urea Nitrogen 9(L) 10 - 20 mg/dL [facility] Creatinine 0.45(L) 0.80 - 1.50 mg/dL [facility] Sodium 138 135 - 145 mmol/L [facility] Potassium 3.4(L) 3.5 - 5.0 mmol/L [facility] Comment: Please note: ??Patients with WBC >100,000 may have falsely elevated Potassium levels. ??For accurate Potassium quantification in these patients send serum separator tube (gold top) for subsequent determinations. ??Contact the Clinical Chemistry Laboratory if there are any questions. Chloride 102 98 - 107 mmol/L [facility] Carbon Dioxide 26 22 - 31 mmol/L [facility] Anion Gap 10 5 - 15 mmol/L [facility] Calcium 8.1(L) 8.5 - 10.5 mg/dL [facility] Est Glomerular Filtration Rate 122 >=60 mL/min/1. 73 m?? [facility] Comment: The eGFR was calculated using the CKD-EPI equation. As with all creatinine based estimates of kidney function, eGFR values calculated with the CKD-EPI equation are not accurate in patients with acute kidney failure, extremes of body mass or the acutely ill. [email or web address] eGFR 142 >=60 mL/min/1. 73 m?? [facility] Comment: The eGFR was calculated using the CKD-EPI equation. As with all creatinine based estimates of kidney function, eGFR values calculated with the CKD-EPI equation are not accurate in patients with acute kidney failure, extremes of body mass or the acutely ill. [email or web address] Blood specimen (specimen) 04/24/2020 2:15 AM EDT 04/24/2020 2:26 AM EDT Narrative Resulting Agency Comment Spec In Lab Jana Trinh MD CHEMISTRY ORDERABLES Performing Organization Address City/State/[facility] Co de Phone Number [facility] [place] [address] * MRI Brain wwo Contrast (Generic) (04/23/2020 [...] the number below. ? Electronically signed by: TON Hobson [facility] ([phone]), at 04/24/2020 6:27 AM Narrative 04/24/2020 6:27 AM EDT EXAMINATION: MRI [...] contact the number below. Jana Trinh MD IM MRI ORDERABLES * Blood culture (04/23/2020 5:20 PM EDT) Blood Culture No growth at 5 days. [facility] Blood specimen (specimen) 04/23/2020 5:20 PM EDT 04/23/2020 5:55 PM EDT Comment:R FA Narrative Resulting Agency Comment Spec In Lab Consuelo M Francisco ESCOBAR MICROBIOLOGY - BLOOD ORDERABLES Performing Organization Address [facility] Co de Phone Number [facility] [place] [address] * Blood culture (04/23/2020 5:20 PM EDT) Blood Culture No growth at 5 days. [facility] Blood specimen (specimen) 04/23/2020 5:20 PM EDT 04/23/2020 5:54 PM EDT Comment:RH Narrative Resulting Agency Comment Spec In Lab Consuelo Sharp SHAWN MICROBIOLOGY - BLOOD ORDERABLES Performing Organization Address [facility] de Phone Number [facility] [place] [address] * XR Chest One View (04/23/2020 4:38 PM EDT) Anatomical Region Laterality Modality Chest N/A Digital Radiogra phy Impressions 04/23/2020 4:42 PM EDT Minimal hazy airspace opacity at the right lung base, question aspiration pneumonitis or early/developing pneumonia. Thank you for letting us participate in the care of this patient. For questions regarding this report, please contact the number below. ? Narrative 04/23/2020 4:42 PM EDT EXAMINATION: XR [...] PM EDT) Hold, Urine Sample in lab. [facility] Urine specimen (specimen) Urine / Unknown 04/23/2020 3:27 PM EDT 04/23/2020 3:55 PM EDT Consuelo Sharp APRN URINE ORDERABLES [facility] [place] [address] * _Urinalysis with microscopic (04/23/2020 3:27 PM EDT) Glucose, Urine Dipstick Negative Negative mg/dL [facility] Protein, Urine Dipstick Negative Negative mg/dL [facility] Bilirubin, Urine Dipstick Negative Negative mg/dL [facility] Comment: Clinical correlation required for positive Urine Bilirubin results as false positive may occur with some drugs and drug related products. If a false positive is suspected a serum total bilirubin should be considered if clinically indicated. Urobilinogen, Urine Dipstick Normal Normal mg/dL [facility] pH, Urn (dipstick) 8.0 5.0 - 8.0 [facility] Blood, Urine Dipstick Negative Negative mg/dL [facility] Ketone, Urine Dipstick Negative Negative mg/dL [facility] Nitrite, Urine Dipstick Negative Negative [facility] Leukocytes, Urine Dipstick Negative Negative [facility] Appearance, Urine Dipstick Clear Clear [facility] Specific [place] Urine Automated 1.012 1.006 - 1.030 [facility] Color, Urine Dipstick Yellow Yellow [facility] RBC, Urine 1 0 - 3 /HPF [facility] WBC, Urine 1 0 - 3 /HPF [facility] Hyaline Casts, Urine 1 0 - 2 /LPF [facility] Urine specimen (specimen) 04/23/2020 3:27 PM EDT 04/23/2020 3:55 PM EDT Narrative Resulting Agency Comment Spec In Lab Consuelo Sharp APRN URINE ORDERABLES [facility] [place] [address] * CSF Cell Count 2nd count (04/23/2020 3:19 PM EDT) Tube # 2nd count Not Perf [facility] Comment:One tube sent, Shunt . RBC CSF CT #2 Not Perf [facility] Comment:One tube sent, Shunt . Cerebrospinal fluid specimen (specimen) Micro Spec / Unknown 04/23/2020 3:19 PM EDT 04/23/2020 4:06 PM EDT Narrative Resulting Agency Comment Spec In Lab Consuelo Sharp MANUFACTURING DIRECTOR BODY FLUIDS AND STOO LS ORDERABLES Performing Organization Address [facility] Co de Phone Number [facility] [place] [address] * (ABNORMAL) CSF Cell Count (04/23/2020 3:19 PM EDT) Tube # counted 1 [facility] AUTO NUC CSF CT 99(H) 0 - 5 /mcl [facility] Comment: If Nucleated CSF CT result [...] clinical condition. RBC CSF CT 9,200 /mcl [facility] Segmented Neutrophils, CSF 4 % [facility] Lymphocyte, CSF 94 % [facility] Macrophage CSF 2 % [facility] Cerebrospinal fluid specimen (specimen) Micro Spec / Unknown 04/23/2020 3:19 PM EDT 04/23/2020 4:06 PM EDT Narrative Resulting Agency Comment Spec In Lab Consuelo Sharp MANUFACTURING DIRECTOR BODY FLUIDS AND STOO LS ORDERABLES Performing Organization Address [facility] Co de Phone Number [facility] [place] [address] * CSF DESC 1 (04/23/2020 3:19 PM EDT) Tube Num CSF #1 Not Perf [facility] Comment:One tube sent, Shunt . Color, CSF Red Colorless [facility] Appearance, CSF Cloudy Clear [facility] Total Vol, CSF 6.0 mL [facility] Cerebrospinal fluid specimen (specimen) Micro Spec / Unknown 04/23/2020 3:19 PM EDT 04/23/2020 4:06 PM EDT Narrative Resulting Agency Comment Spec In Lab Consuelo Sharp APRN BODY FLUIDS AND STOO LS ORDERABLES Performing Organization Address [facility] Co de Phone Number [facility] [place] [address] * CSF Culture (04/23/2020 3:19 PM EDT) Central Nervous System Culture No growth at 10 days [facility] Gram Stain Cytocentrifuge Gram Stain performed Neutrophils seen No microorganisms seen. [facility] Cerebrospinal fluid specimen (specimen) 04/23/2020 3:19 PM EDT 04/23/2020 4:15 PM EDT Comment:SHUNT Narrative Resulting Agency Comment Spec In Lab Consuelo Sharp APRN MICROBIOLOGY - GENER AL ORDERABLES Performing Organization Address [facility] Co de Phone Number [facility] [place] [address] * (ABNORMAL) Lower Respiratory Culture Tracheal Aspirate (04/23/2020 3:19 PM EDT) Lower Respiratory Culture Moderate Haemophilus influenzae : Beta-lactamase result predicts organism is likely resistant to ampicillin and penicillin. Further susceptibility testing performed by request. Few mixed bacterial morphotypes suggestive of normal upper respiratory filiberto including Rare Gram Negative Rods (A) [facility] Gram Stain Moderate Neutrophils seen No squamous epithelial cells seen Many small pleomorphic Gram Negative Rods seen Few mixed bacterial morphotypes suggestive of normal upper respiratory filiberto (A) [facility] Organism Haemophilus influenzae(A) [facility] Organism Gram Negative Rods(A) [facility] Organism small pleomorphic Gram Negative Rods(A) [facility] Specimen from trachea obtained by aspiration (specimen) 04/23/2020 3:19 PM EDT 04/23/2020 4:42 PM EDT Narrative Resulting Agency Comment Spec In Lab Consuelo Sharp APRN MICROBIOLOGY - GENER AL ORDERABLES Performing Organization Address City/[facility]/ZIP Co de Phone Number [facility] [place] [address] * Ammonia (04/23/2020 2:00 PM EDT) [facility] Ammonia 38 16 - 60 mcmol/L [facility] Blood specimen (specimen) 04/23/2020 2:00 PM EDT 04/23/2020 2:21 PM EDT Narrative Resulting Agency Comment Spec In Lab Consuelo Sharp APRN CHEMISTRY ORDERABLES Performing Organization Address [facility]/ZIP Co de Phone Number [facility] [place] [address] * Potassium (04/23/2020 10:00 AM EDT) [facility] Potassium 4.0 3.5 - 5.0 mmol/L [facility] Comment: Please note: ??Patients with [...] Trinh MD CHEMISTRY ORDERABLES Performing Organization Address City/[facility]/ZIP Co de Phone Number [facility] [place] [address] * (ABNORMAL) Differential, Automated (04/23/2020 3:50 AM EDT) Pathologist [facility] Neutrophil % 74.5 % [facility] Neutrophil Absolute 6.83(H) 1.70 - 6.10 x10(3)/mc L [facility] Lymph % 15.9 % [facility] Lymphocytes Abs 1.5 0.9 - 3.2 x10(3)/mc L [facility] Monocyte % 8.8 % [facility] Monocyte Abs 0.8 0.3 - 0.9 x10(3)/[facility] Eos % 0.5 % [facility] Eosinophils Abs 0.0 0.0 - 0.4 x10(3)/[facility] Basophil % 0.1 % [facility] Baso Absolute 0.0 0.0 - 0.1 x10(3)/[facility] Immature Gran % 0.20 % [facility] Comment: Immature granulocytes(IG's)percentage and absolute count will include metamyelocytes, myelocytes, and promyelocytes. Blood smears from CBCs yielding IG's will be scanned manually for concordance. If this scan disagrees with the automated IG or if promyelocytes are noted, a manual differential will be performed. Immature Gran Absolute 0.02 0.00 - 0.04 x10(3)/[facility] Blood specimen (specimen) 04/23/2020 3:50 AM EDT 04/23/2020 3:56 AM EDT Narrative Resulting Agency Comment Spec In Lab Jacob PA HEMATOLOGY ORDERABLE S [facility] [place] [address] * (ABNORMAL) Hemogram (04/23/2020 3:50 AM EDT) White Blood Cell 9.2 4.0 - 9.5 x10(3)/[facility] Red Blood Cell 3.43(L) 4.58 - 5.54 x10(6)/ L [facility] Hemoglobin 11.7(L) 13.7 - 16.5 gm/dL [facility] Hematocrit 34.3(L) 40.5 - 48.5 % [facility] Mean Cell Volume 100.0(H) 82.9 - 93.1 fL [facility] Mean Cell Hemoglobin 34.1(H) 27.5 - 32.1 pg [facility] Mean Cell Hemoglobin Concentration 34.1 32.0 - 35.7 gm/dL [facility] Platelet 124(L) 145 - 357 x10(3)/mc L [facility] RDW Standard Deviation 47.5(H) 36.0 - 45.0 fL [facility] RDW coefficient of variation 13.0 11.4 - 13.8 % [facility] Mean Platelet Volume 9.3 7.6 - 12.9 fL [facility] NRBC% auto 0.0 % [facility] NRBC Absolute 0.000 0.000 - 0.000 x10(3)/mc L [facility] Blood specimen (specimen) 04/23/2020 3:50 AM EDT 04/23/2020 3:56 AM EDT Narrative Resulting Agency Comment Spec In Lab Jacob PA HEMATOLOGY ORDERABLE S Performing Organization Address City/[facility]/ZIP Co de Phone Number [facility] [place] [address] * (ABNORMAL) Phosphorus (04/23/2020 3:50 AM EDT) Phosphorus 1.2(Critic al) 2.5 - 4.5 mg/dL [facility] Comment:Called by: [facility], Read back by: saray hall, Date/Time:04/23/20 04:40. Blood specimen (specimen) 04/23/2020 3:50 AM EDT 04/23/2020 3:56 AM EDT Narrative Resulting Agency Comment Spec In Lab Jana Trinh MD CHEMISTRY ORDERABLES Performing Organization Address City/[facility]/ZIP Co de Phone Number [facility] [place] [address] * Magnesium (04/23/2020 3:50 AM EDT) Magnesium 0.87 0.69 - 1.07 mmol/L [facility] Blood specimen (specimen) 04/23/2020 3:50 AM EDT 04/23/2020 3:56 AM EDT Narrative Resulting Agency Comment Spec In Lab Jana Trinh MD CHEMISTRY ORDERABLES [facility] [place] [address] * (ABNORMAL) Basic Metabolic Panel (non-fasting) (04/23/2020 3:50 AM EDT) Glucose 146 65 - 199 mg/dL [facility] Comment:Diabetes: >=200 mg/d L plus symptoms Blood Urea Nitrogen 10 10 - 20 mg/dL [facility] Creatinine 0.36(L) 0.80 - 1.50 mg/dL [facility] Sodium 140 135 - 145 mmol/L [facility] Potassium 3.8 3.5 - 5.0 mmol/L [facility] Comment: Please note: ??Patients with WBC >100,000 may have falsely elevated Potassium levels. ??For accurate Potassium quantification in these patients send serum separator tube (gold top) for subsequent determinations. ??Contact the Clinical Chemistry Laboratory if there are any questions. Chloride 107 98 - 107 mmol/L [facility] Carbon Dioxide 26 22 - 31 mmol/L [facility] Anion Gap 7 5 - 15 mmol/L [facility] Calcium 7.8(L) 8.5 - 10.5 mg/dL [facility] Est Glomerular Filtration Rate 134 >=60 mL/min/1. 73 m?? [facility] Comment: The eGFR was calculated using the CKD-EPI equation. As with all creatinine based estimates of kidney function, eGFR values calculated with the CKD-EPI equation are not accurate in patients with acute kidney failure, extremes of body mass or the acutely ill. [email or web address] eGFR 155 >=60 mL/min/1. 73 m?? [facility] Comment: The eGFR was calculated using the CKD-EPI equation. As with all creatinine based estimates of kidney function, eGFR values calculated with the CKD-EPI equation are not accurate in patients with acute kidney failure, extremes of body mass or the acutely ill. [email or web address] Blood specimen (specimen) 04/23/2020 3:50 AM EDT 04/23/2020 3:56 AM EDT Narrative Resulting Agency Comment Spec In Lab Jana Trinh MD CHEMISTRY ORDERABLES Performing Organization Address [facility] de Phone Number [facility] [place] [address] * (ABNORMAL) Potassium (04/22/2020 8:11 PM EDT) [facility] Signature Potassium 3.0(Criti ju) 3.5 - 5.0 mmol/L [facility] Comment: Called by: clara, Read [...] Trinh MD CHEMISTRY ORDERABLES Performing Organization Address [facility] Co de Phone Number [facility] [place] [address] * CT Head wo Contrast (Generic) (04/22/2020 4:54 PM EDT) Anatomical Region Laterality Modality Head Computed Tomogra phy Impressions 04/22/2020 5:05 PM EDT No significant interval change. Thank you for letting us participate in the care of this patient. For questions regarding this report, please contact the number below. ? Narrative 04/22/2020 5:05 PM EDT EXAMINATION: CT [...] * ECHO COMPLETE (04/22/2020 1:23 PM EDT) Pathologist [facility] EF 60 HEART[employer] SYSTEM Anatomical Region Laterality Modality Other 04/22/2020 Narrative 04/22/2020 1:52 PM EDT Procedure: ?Transthoracic Echocardiogram Patient: ?BURNETT OLLIE R ?(Age): 1960(60y) Med Rec#: ? [id number] ?Sex: ?M ? Site Loc: ? [facility] [place] ?Ht / Wt: ??168(cm)/66(kg) Pt. Loc: ?ICU ? BSA: ?1.75 Study Date: ?? 04/22/2020 ?Pt. Type: Inpatient Tape: ? Referring: James Shah Reading: Beronica Wright ([id number]) Benefits Counselor: Sharri Ibarra Political Anthropologist: Salma Stevens Diagnosis: *Nontraumatic intracerebral hemorrhage, unspecified [...] Vmax ?0.63 ? m/sec ? MV deceleration tfdt549.18 ? msec ? MV A-wave Vmax ?0.62 [...] ? Mid-Inferior ?Normal ? Mid-Inferoseptal ?Normal ? [place]-Septal ? Normal ? [place]-Anterior ? Normal ? [place]-Lateral ?Normal ? [place]-Inferior ? Normal ? [place]-Tip ?Normal ? This report has been electronically signed by: Beronica Wright MD ? 04/22/2020 13:51:56 Images reviewed and interpretation verified [facility] Cardiac [facility]trasound [facility] Procedure Note Beronica Wright MD - 04/22/2020 Procedure: Transthoracic Echocardiogram Patient: HORTENCIA Ceja (Age): 1960(60y) Med Rec#: [id number] Sex: M Site Loc: [facility] Ht / Wt: 168(cm)/66(kg) Pt. Loc: ICU BSA: 1.75 Study Date: 04/22/2020 Pt. Type: Inpatient Tape: Referring: James Shah Reading: Beronica Wright ([id number]) Benefits Counselor: Sharri Ibarra Political Anthropologist: Salma Stevens Diagnosis: *Nontraumatic intracerebral hemorrhage, unspecified [...] MV E-wave Vmax 0.63 m/sec MV deceleration [id number] msec MV A-wave Vmax 0.62 m/sec MV [...] Normal Mid-Posterolateral Normal Mid-Inferior Normal Mid-Inferoseptal Normal [place]-Septal Normal [place]-Anterior Normal [place]-Lateral Normal [place]-Inferior Normal [place]-Tip Normal This report has been electronically signed by: Beronica Wright MD 04/22/2020 13:51:56 Images reviewed and interpretation verified [facility] Cardiac [facility]ound [facility] James Shah APRN ECHO ORDERABLES * IR Arteriogram Cerebral (04/22/2020 11:01 AM EDT) Anatomical Region Laterality Modality X-Ray Angiograph y Impressions 05/20/2020 2:42 PM EDT : 1) No evidence of aneurysms, AVMs or AVFs. Attending attestations: I was present during the intra-service time as documented by the IR Nurse I was the attending physician supervising the mobile unit assistant in the above care and I was present with the mobile unit assistant for the entire procedure. Narrative 05/20/2020 2:42 PM EDT [facility] CEREBRAL ANGIOGRAPHY NOTE PATIENT NAME: ? Ollie Burnett Sr. : ?1960 MRN: ?[id number] CASE DATE: ?04/22/2020 ATTENDING: ?Ronda Garrison MD [...] or early venous drainage. Jana Trinh MD G IR ORDERABLES * (ABNORMAL) Differential, Automated (04/22/2020 12:50 AM EDT) Neutrophil % 80.3 % [facility] Neutrophil Absolute 6.21(H) 1.70 - 6.10 x10(3)/mc L [facility] Lymph % 12.1 % [facility] Lymphocytes Abs 0.9 0.9 - 3.2 x10(3)/[facility] Monocyte % 7.2 % [facility] Monocyte Abs 0.6 0.3 - 0.9 x10(3)/[facility] Eos % 0.0 % [facility] Eosinophils Abs 0.0 0.0 - 0.4 x10(3)/[facility] Basophil % 0.1 % [facility] Baso Absolute 0.0 0.0 - 0.1 x10(3)/[facility] Immature Gran % 0.30 % [facility] Comment: Immature granulocytes(IG's)percentage and absolute count will include metamyelocytes, myelocytes, and promyelocytes. Blood smears from CBCs yielding IG's will be scanned manually for concordance. If this scan disagrees with the automated IG or if promyelocytes are noted, a manual differential will be performed. Immature Gran Absolute 0.02 0.00 - 0.04 x10(3)/[facility] Blood specimen (specimen) 04/22/2020 12:50 AM EDT 04/22/2020 12:57 AM EDT Narrative Resulting Agency Comment Spec In Lab Jacob PA HEMATOLOGY ORDERABLE S Performing Organization Address City/State/[facility] Co de Phone Number [facility] [place] [address] * (ABNORMAL) Hemogram (04/22/2020 12:50 AM EDT) White Blood Cell 7.7 4.0 - 9.5 x10(3)/[facility] Red Blood Cell 3.54(L) 4.58 - 5.54 x10(6)/[facility] Hemoglobin 11.9(L) 13.7 - 16.5 gm/dL [facility] Hematocrit 35.7(L) 40.5 - 48.5 % [facility] Mean Cell Volume 100.8(H) 82.9 - 93.1 fL [facility] Mean Cell Hemoglobin 33.6(H) 27.5 - 32.1 pg [facility] Mean Cell Hemoglobin Concentration 33.3 32.0 - 35.7 gm/dL [facility] Platelet 129(L) 145 - 357 x10(3)/mc L [facility] RDW Standard Deviation 47.5(H) 36.0 - 45.0 fL [facility] RDW coefficient of variation 12.7 11.4 - 13.8 % [facility] Mean Platelet Volume 9.3 7.6 - 12.9 [facility] NRBC% auto 0.0 % [facility] NRBC Absolute 0.000 0.000 - 0.000 x10(3)/mc L [facility] Blood specimen (specimen) 04/22/2020 12:50 AM EDT 04/22/2020 12:57 AM EDT Narrative Resulting Agency Comment Spec In Lab Jacob PA HEMATOLOGY ORDERABLE S [facility] [place] [address] * (ABNORMAL) Hepatic Function Panel (04/22/2020 12:50 AM EDT) Protein, Total 5.9(L) 6.1 - 8.0 gm/dL [facility] Albumin 3.2 3.2 - 5.2 gm/dL [facility] Aspartate Aminotransferase 69(H) 0 - 39 unit/L [facility] Alanine Aminotransferase 84(H) 0 - 55 unit/L [facility] Alkaline Phosphatase 50 40 - 130 unit/L [facility] Bilirubin, Total 0.9 0.2 - 1.3 mg/dL [facility] Bilirubin, Direct 0.5(H) 0.0 - 0.3 mg/dL [facility] Blood specimen (specimen) 04/22/2020 12:50 AM EDT 04/22/2020 12:57 AM EDT Narrative Resulting Agency Comment Spec In Lab Jana Trinh MD CHEMISTRY ORDERABLES Performing Organization Address City/[facility]/ZIP Co de Phone Number [facility] [place] [address] * (ABNORMAL) Phosphorus (04/22/2020 12:50 AM EDT) Phosphorus 1.9(L) 2.5 - 4.5 mg/dL [facility] Blood specimen (specimen) 04/22/2020 12:50 AM EDT 04/22/2020 12:57 AM EDT Narrative Resulting Agency Comment Spec In Lab Jana Trinh MD CHEMISTRY ORDERABLES Performing Organization Address City/[facility]/ZIP Co de Phone Number [facility] [place] [address] * Magnesium (04/22/2020 12:50 AM EDT) Magnesium 0.86 0.69 - 1.07 mmol/L [facility] Blood specimen (specimen) 04/22/2020 12:50 AM EDT 04/22/2020 12:57 AM EDT Narrative Resulting Agency Comment Spec In Lab Jana Trinh MD CHEMISTRY ORDERABLES Performing Organization Address City/[facility]/ZIP Co de Phone Number [facility] [place] [address] * (ABNORMAL) Basic Metabolic Panel (non-fasting) (04/22/2020 12:50 AM EDT) Glucose 189 65 - 199 mg/dL [facility] Comment:Diabetes: >=200 mg/d L plus symptoms Blood Urea Nitrogen 10 10 - 20 mg/dL [facility] Creatinine 0.54(L) 0.80 - 1.50 mg/dL [facility] Sodium 138 135 - 145 mmol/L [facility] Potassium 3.3(L) 3.5 - 5.0 mmol/L [facility] Comment: Please note: ??Patients with WBC >100,000 may have falsely elevated Potassium levels. ??For accurate Potassium quantification in these patients send serum separator tube (gold top) for subsequent determinations. ??Contact the Clinical Chemistry Laboratory if there are any questions. Chloride 103 98 - 107 mmol/L [facility] Carbon Dioxide 24 22 - 31 mmol/L [facility] Anion Gap 11 5 - 15 mmol/L [facility] Calcium 7.9(L) 8.5 - 10.5 mg/dL [facility] Est Glomerular Filtration Rate 113 >=60 mL/min/1. 73 m?? [facility] Comment: The eGFR was calculated using the CKD-EPI equation. As with all creatinine based estimates of kidney function, eGFR values calculated with the CKD-EPI equation are not accurate in patients with acute kidney failure, extremes of body mass or the acutely ill. [email or web address] eGFR 131 >=60 mL/min/1. 73 m?? [facility] Comment: The eGFR was calculated using the CKD-EPI equation. As with all creatinine based estimates of kidney function, eGFR values calculated with the CKD-EPI equation are not accurate in patients with acute kidney failure, extremes of body mass or the acutely ill. [email or web address] Blood specimen (specimen) 04/22/2020 12:50 AM EDT 04/22/2020 12:57 AM EDT Narrative Resulting Agency Comment Spec In Lab Jana Trinh MD CHEMISTRY ORDERABLES [facility] [place] [address] * MRI Brain wwo Contrast (Generic) (04/21/2020 [...] contact the number below. ? Narrative 04/21/2020 3:26 PM EDT EXAMINATION: MRI [...] Jana Trinh MD IMG MRI ORDERABLES * CT Head wo Contrast [...] Jana Trinh MD IMG CT ORDERABLES * Differential, Automated (04/21/2020 1:00 AM EDT) Neutrophil % 58.5 % [facility] Neutrophil Absolute 4.91 1.70 - 6.10 x10(3)/[facility] LAB[facility] Lymph % 31.6 % [facility] Lymphocytes Abs 2.7 0.9 - 3.2 x10(3)/[facility] Monocyte % 9.4 % [facility] Monocyte Abs 0.8 0.3 - 0.9 x10(3)/[facility] Eos % 0.1 % [facility] Eosinophils Abs 0.0 0.0 - 0.4 x10(3)/[facility] Basophil % 0.2 % [facility] Baso Absolute 0.0 0.0 - 0.1 x10(3)/[facility] Immature Gran % 0.20 % [facility] Comment: Immature granulocytes(IG's)percentage and absolute count will include metamyelocytes, myelocytes, and promyelocytes. Blood smears from CBCs yielding IG's will be scanned manually for concordance. If this scan disagrees with the automated IG or if promyelocytes are noted, a manual differential will be performed. Immature Gran Absolute 0.02 0.00 - 0.04 x10(3)/[facility] Blood specimen (specimen) 04/21/2020 1:00 AM EDT 04/21/2020 1:12 AM EDT Narrative Resulting Agency Comment Spec In Lab Jacob PA HEMATOLOGY ORDERABLE S [facility] [place] [address] * (ABNORMAL) Hemogram (04/21/2020 1:00 AM EDT) White Blood Cell 8.4 4.0 - 9.5 x10(3)/[facility] Red Blood Cell 4.07(L) 4.58 - 5.54 x10(6)/[facility] Hemoglobin 14.0 13.7 - 16.5 gm/dL [facility] Hematocrit 39.9(L) 40.5 - 48.5 % [facility] Mean Cell Volume 98.0(H) 82.9 - 93.1 [facility] Mean Cell Hemoglobin 34.4(H) 27.5 - 32.1 pg [facility] Mean Cell Hemoglobin Concentration 35.1 32.0 - 35.7 gm/dL [facility] Platelet 147 145 - 357 x10(3)/[facility] RDW Standard Deviation 45.7(H) 36.0 - 45.0 [facility] RDW coefficient of variation 12.7 11.4 - 13.8 % [facility] Mean Platelet Volume 8.9 7.6 - 12.9 [facility] NRBC% auto 0.0 % [facility] NRBC Absolute 0.000 0.000 - 0.000 x10(3)/[facility] Blood specimen (specimen) 04/21/2020 1:00 AM EDT 04/21/2020 1:12 AM EDT Narrative Resulting Agency Comment Spec In Lab Jacob PA HEMATOLOGY ORDERABLE S [facility] [place] [address] * (ABNORMAL) BLOOD GAS 2 ARTERIAL (04/21/2020 1:00 AM EDT) pH, Arterial 7.34(L) 7.35 - 7.45 [facility] PCO2, Arterial 39 35 - 45 mmHg [facility] PO2, Arterial 226(H) 85 - 104 mmHg [facility] Bicarbonate, Arterial 20.5 20.0 - 26.0 mmol/L [facility] Base Excess, Arterial -5.3(L) -3.0 - 3.0 mmol/L [facility] Hgb Blood Gas 14.2 13.7 - 16.5 gm/dL [facility] Oxyhemoglobin, Arterial 98.2(H) 94.0 - 97.0 % [facility] Carboxyhemoglob in, Arterial 0.5 % [facility] Comment: Nonsmokers: 0.5-1.5% COHB Smokers: Variable, but usually less than 10% Toxic: 20-30% COHB Lethal: Greater than 60% COHB Methemoglobin, Arterial 0.5 <=1.5 % [facility] Na Whole Blood 136 135 - 145 mmol/L [facility] K Whole Blood 3.8 3.5 - 5.0 mmol/L [facility] Comment: Please note: Patients with WBC >100,000 may have falsely elevated Potassium levels. Contact the Clinical Chemistry Laboratory if there are any questions. ICa Whole Blood 1.14(L) 1.15 - 1.33 mmol/L [facility] Comment: Note: ??Total bilirubin higher than 20 mg/dL may lead to falsely low ionized calcium. CL Whole Blood 104 98 - 107 mmol/L [facility] Gluc Whole Bld 77 65 - 199 mg/dL [facility] Comment:Diabetes: >=200 mg/d L plus symptoms. Lactate WB 0.6 0.5 - 2.2 mmol/L [facility] FIO2 Art 50 % [facility] PF Ratio Art 452 [facility] Blood specimen (specimen) 04/21/2020 1:00 AM EDT 04/21/2020 1:00 AM EDT Jana Trinh MD POINT OF CARE TEST O RDERABLES Performing Organization Address [facility] Co de Phone Number [facility] [place] [address] * (ABNORMAL) Iron and TIBC (04/21/2020 1:00 AM EDT) Iron 96 45 - 160 mcg/dL [facility] TIBC 201(L) 250 - 450 mcg/dL [facility] Iron Saturation 48 20 - 50 % [facility] Blood specimen (specimen) 04/21/2020 1:00 AM EDT 04/21/2020 1:12 AM EDT Narrative Resulting Agency Comment Spec In Lab Jana Trinh MD CHEMISTRY ORDERABLES Performing Organization Address [facility] de Phone Number [facility] [place] [address] * (ABNORMAL) Prothrombin Time (04/21/2020 1:00 AM EDT) Prothrombin Time 12.9(H) 9.4 - 12.5 sec [facility] International Normalization Ratio 1.1 [facility] Comment: An INR <2.0 indicates [...] Resulting Agency Comment Spec In Lab Jana rTinh MD HEMATOLOGY ORDERABLE S Performing Organization Address [facility] Co de Phone Number [facility] [place] [address] * APTT (04/21/2020 1:00 AM EDT) Partial Thromboplastin Time 27 25 - 37 sec [facility] Comment: The PTT is NOT appropriate for heparin monitoring. Use the Anti-Xa level for heparin monitoring (HEP UFH) or LMWH monitoring (HEP LMW). A PTT less than 37 seconds generally indicates adequate hemostasis. Blood specimen (specimen) 04/21/2020 1:00 AM EDT 04/21/2020 1:12 AM EDT Narrative Resulting Agency Comment Spec In Lab Jana Trinh MD HEMATOLOGY ORDERABLE S Performing Organization Address [facility] Co de Phone Number [facility] [place] [address] * (ABNORMAL) Hepatic Function Panel (04/21/2020 1:00 AM EDT) Pathologist [facility] Protein, Total 6.6 6.1 - 8.0 gm/dL [facility] Albumin 3.5 3.2 - 5.2 gm/dL [facility] Aspartate Aminotransferase 102(H) 0 - 39 unit/L [facility] Alanine Aminotransferase 110(H) 0 - 55 unit/L [facility] Alkaline Phosphatase 62 40 - 130 unit/L [facility] Bilirubin, Total 0.5 0.2 - 1.3 mg/dL [facility] Bilirubin, Direct 0.2 0.0 - 0.3 mg/dL [facility] Blood specimen (specimen) 04/21/2020 1:00 AM EDT 04/21/2020 1:12 AM EDT Narrative Resulting Agency Comment Spec In Lab Jana Trinh MD CHEMISTRY ORDERABLES [facility] [place] [address] * Phosphorus (04/21/2020 1:00 AM EDT) Pathologist [facility] Phosphorus 3.9 2.5 - 4.5 mg/dL [facility] Blood specimen (specimen) 04/21/2020 1:00 AM EDT 04/21/2020 1:12 AM EDT Narrative Resulting Agency Comment Spec In Lab Jana Trinh MD CHEMISTRY ORDERABLES Performing Organization Address [facility]/ZIP Co de Phone Number [facility] [place] [address] * Magnesium (04/21/2020 1:00 AM EDT) [facility] Magnesium 0.85 0.69 - 1.07 mmol/L [facility] Blood specimen (specimen) 04/21/2020 1:00 AM EDT 04/21/2020 1:12 AM EDT Narrative Resulting Agency Comment Spec In Lab Jana Trinh MD CHEMISTRY ORDERABLES Performing Organization Address [facility]/ZIP Co de Phone Number [facility] [place] [address] * (ABNORMAL) Basic Metabolic Panel (non-fasting) (04/21/2020 1:00 AM EDT) Pathologist [facility] Glucose 89 65 - 199 mg/dL [facility] Comment:Diabetes: >=200 mg/d L plus symptoms Blood Urea Nitrogen 9(L) 10 - 20 mg/dL [facility] Creatinine 0.54(L) 0.80 - 1.50 mg/dL [facility] Sodium 141 135 - 145 mmol/L [facility] Potassium 4.1 3.5 - 5.0 mmol/L [facility] Comment: Please note: ??Patients with WBC >100,000 may have falsely elevated Potassium levels. ??For accurate Potassium quantification in these patients send serum separator tube (gold top) for subsequent determinations. ??Contact the Clinical Chemistry Laboratory if there are any questions. Chloride 105 98 - 107 mmol/L [facility] Carbon Dioxide 22 22 - 31 mmol/L [facility] Anion Gap 14 5 - 15 mmol/L [facility] Calcium 8.1(L) 8.5 - 10.5 mg/dL [facility] Est Glomerular Filtration Rate 113 >=60 mL/min/1. 73 m?? [facility] Comment: The eGFR was calculated using the CKD-EPI equation. As with all creatinine based estimates of kidney function, eGFR values calculated with the CKD-EPI equation are not accurate in patients with acute kidney failure, extremes of body mass or the acutely ill. [email or web address] eGFR 131 >=60 mL/min/1. 73 m?? [facility] Comment: The eGFR was calculated using the CKD-EPI equation. As with all creatinine based estimates of kidney function, eGFR values calculated with the CKD-EPI equation are not accurate in patients with acute kidney failure, extremes of body mass or the acutely ill. [email or web address] Blood specimen (specimen) 04/21/2020 1:00 AM EDT 04/21/2020 1:12 AM EDT Narrative Resulting Agency Comment Spec In Lab Jana Trinh MD CHEMISTRY ORDERABLES Performing Organization Address City/State/[facility] Co de Phone Number [facility] [place] [address] * XR Chest One View (04/20/2020 11:25 [...] * POCT Glucose (04/20/2020 10:46 PM EDT) [facility] Signature Glucose, POC 87 65 - 199 mg/dL [facility] Comment: Supplemental ranges: <140 mg/dL before meals <180 mg/dL all other times of the day Blood specimen (specimen) 04/20/2020 10:46 PM EDT 04/20/2020 10:46 PM EDT Jana Trinh MD POINT OF CARE TEST O RDERABLES [facility] [place] [address] * CT Head wo Contrast (Generic) (04/20/2020 [...] the number below. ? Electronically signed by: TON Hobson [facility] ([phone]), at 04/21/2020 7:31 AM Narrative 04/21/2020 7:31 AM EDT EXAMINATION: CT [...] left hemithorax is excluded from the imaged [id number]. It should be noted, that the patient was not imaged in a completely upright position. I have personally reviewed the image(s) and the resident's interpretation and agree with the findings, Stormy Gardiner at 04/20/2020 8:54 PM Thank you for letting us participate in the care of this patient. For questions regarding this report, please contact the number below. ? Narrative 04/20/2020 8:54 PM EDT EXAMINATION: XR [...] left hemithorax is excluded from the imaged [id number]. It should be noted, that the patient was not imaged in a completely upright position. I have personally reviewed the image(s) and the resident's interpretationand agree with the findings, Stormy Gardiner at 04/20/2020 8:54 PM Thank you for letting us participate in the care of this patient. Forquestions regarding this report, please contact the number below. Raul Krishnan MD IMG DX ORDERABLES * Troponin (04/20/2020 6:20 PM EDT) Troponin-T <0.01 0.00 - 0.00 ng/mL [facility] Comment: The 99th percentile for Troponin T is less than 0.01 ng/mL, any detectable cTnT concentration using this assay should be considered elevated. According to the third universal definition of myocardial infarction the following criteria with a clinical presentation consistent with acute myocardial ischemia meets the diagnosis for a myocardial infarction (OR). Detection of a rise and/or fall of cTnT, with at least one value greater than the 99th percentile (> or = 0.01) and with at least one of the following ?? Symptoms of ischemia ?? New or presumed new significant [id number] wave (ST-T) changes or new left bundle [...] additional sample may be indicated. Reference: Third [place] Definition of Myocardial Infarction. Journal of the [employer] 2012;60:1581-98 Blood specimen (specimen) Venous Draw / Unknown 04/20/2020 6:20 PM EDT 04/20/2020 8:10 PM EDT Narrative Resulting Agency Comment Spec In Lab Jacob PA CHEMISTRY ORDERABLES Performing Organization Address City/[facility]/ZIP Co de Phone Number [facility] [place] [address] * ABORH Recheck Status (04/20/2020 6:20 PM EDT) ABORH Type Recheck Completed [facility] Blood specimen (specimen) 04/20/2020 6:20 PM EDT 04/20/2020 6:59 PM EDT Narrative Resulting Agency Comment Spec In Lab Obey Moreno MD BLOOD BANK LAB ORDER PETER Performing Organization Address City/[facility]/ZIP Co de Phone Number [facility] [place] [address] * Lee Tube Hold (04/20/2020 6:20 PM EDT) Lee Hold Sample in lab. [facility] Blood specimen (specimen) Venous Draw / Unknown 04/20/2020 6:20 PM EDT 04/20/2020 6:47 PM EDT Obey Moreno MD CHEMISTRY ORDERABLES Performing Organization Address City/[facility]/ZIP Co de Phone Number [facility] [place] [address] * Gold Tube HOLD (04/20/2020 6:20 PM EDT) Pathologist [facility] Gold Hold Sample in lab. [facility] Blood specimen (specimen) Venous Draw / Unknown 04/20/2020 6:20 PM EDT 04/20/2020 6:47 PM EDT Obey Moreno MD CHEMISTRY ORDERABLES [facility] [place] [address] * (ABNORMAL) Differential, Automated (04/20/2020 6:20 PM EDT) [facility] Neutrophil % 75.8 % [facility] Neutrophil Absolute 4.01 1.70 - 6.10 x10(3)/mc L [facility] Lymph % 18.9 % [facility] Lymphocytes Abs 1.0 0.9 - 3.2 x10(3)/ L [facility] Monocyte % 4.7 % [facility] Monocyte Abs 0.2(L) 0.3 - 0.9 x10(3)/ L [facility] Eos % 0.0 % [facility] Eosinophils Abs 0.0 0.0 - 0.4 x10(3)/ L [facility] Basophil % 0.2 % [facility] Baso Absolute 0.0 0.0 - 0.1 x10(3)/mc L [facility] Immature Gran % 0.40 % [facility] Comment: Immature granulocytes(IG's)percentage and absolute count will include metamyelocytes, myelocytes, and promyelocytes. Blood smears from CBCs yielding IG's will be scanned manually for concordance. If this scan disagrees with the automated IG or if promyelocytes are noted, a manual differential will be performed. Immature Gran Absolute 0.02 0.00 - 0.04 x10(3)/mc L [facility] Blood specimen (specimen) 04/20/2020 6:20 PM EDT 04/20/2020 6:46 PM EDT Narrative Resulting Agency Comment Spec In Lab Obey Moreno MD HEMATOLOGY ORDERABLE S [facility] [place] [address] * (ABNORMAL) Hemogram (04/20/2020 6:20 PM EDT) White Blood Cell 5.3 4.0 - 9.5 x10(3)/mc L [facility] Red Blood Cell 3.70(L) 4.58 - 5.54 x10(6)/mc L [facility] Hemoglobin 12.5(L) 13.7 - 16.5 gm/dL [facility] Hematocrit 36.5(L) 40.5 - 48.5 % [facility] Mean Cell Volume 98.6(H) 82.9 - 93.1 fL [facility] Mean Cell Hemoglobin 33.8(H) 27.5 - 32.1 pg [facility] Mean Cell Hemoglobin Concentration 34.2 32.0 - 35.7 gm/dL [facility] Platelet 133(L) 145 - 357 x10(3)/mc L [facility] RDW Standard Deviation 45.1(H) 36.0 - 45.0 fL [facility] RDW coefficient of variation 12.5 11.4 - 13.8 % [facility] Mean Platelet Volume 9.2 7.6 - 12.9 [facility] LABORATORY NRBC% auto 0.0 % [facility] NRBC Absolute 0.000 0.000 - 0.000 x10(3)/mc L [facility] Blood specimen (specimen) 04/20/2020 6:20 PM EDT 04/20/2020 6:46 PM EDT Narrative Resulting Agency Comment Spec In Lab Obey Moreno MD HEMATOLOGY ORDERABLE S [facility] [place] [address] * Antibody screen (04/20/2020 6:20 PM EDT) Ab Screen Interp Negative [facility] Expires at [id number] on: 04/23/2020 [facility] Blood specimen (specimen) 04/20/2020 6:20 PM EDT 04/20/2020 6:59 PM EDT Narrative Resulting Agency Comment Spec In Lab Obey Moreno MD BLOOD BANK LAB ORDER PETER Performing Organization Address City/[facility]/ZIP Co de Phone Number [facility] [place] [address] * ABO/Rh Typing (04/20/2020 6:20 PM EDT) ABORH Type AB Pos [facility] Blood specimen (specimen) 04/20/2020 6:20 PM EDT 04/20/2020 6:59 PM EDT Narrative Resulting Agency Comment Spec In Lab Obey Moreno MD BLOOD BANK LAB ORDER PETER Performing Organization Address City/[facility]/ZIP Co de Phone Number [facility] [place] [address] * (ABNORMAL) Hepatic Function Panel (04/20/2020 6:20 PM EDT) Pathologist [facility] Protein, Total 5.8(L) 6.1 - 8.0 gm/dL [facility] Albumin 3.3 3.2 - 5.2 gm/dL [facility] Aspartate Aminotransferase 107(H) 0 - 39 unit/L [facility] Alanine Aminotransferase 105(H) 0 - 55 unit/L [facility] Alkaline Phosphatase 53 40 - 130 unit/L [facility] Bilirubin, Total 0.7 0.2 - 1.3 mg/dL [facility] Bilirubin, Direct 0.3 0.0 - 0.3 mg/dL [facility] Blood specimen (specimen) 04/20/2020 6:20 PM EDT 04/20/2020 6:46 PM EDT Narrative Resulting Agency Comment Spec In Lab Raul Krishnan MD CHEMISTRY ORDERABLES Performing Organization Address [facility] Co de Phone Number [facility] [place] [address] * APTT (04/20/2020 6:20 PM EDT) Partial Thromboplastin Time 28 25 - 37 sec [facility] Comment: The PTT is NOT appropriate for heparin monitoring. Use the Anti-Xa level for heparin monitoring (HEP UFH) or LMWH monitoring (HEP LMW). A PTT less than 37 seconds generally indicates adequate hemostasis. Blood specimen (specimen) 04/20/2020 6:20 PM EDT 04/20/2020 6:46 PM EDT Narrative Resulting Agency Comment Spec In Lab Raul Krishnan MD HEMATOLOGY ORDERABLE S Performing Organization Address [facility] Co de Phone Number [facility] [place] [address] * (ABNORMAL) Prothrombin Time (04/20/2020 6:20 PM EDT) Prothrombin Time 14.3(H) 9.4 - 12.5 sec [facility] International Normalization Ratio 1.2 [facility] Comment: An INR <2.0 indicates [...] MD HEMATOLOGY ORDERABLE S Performing Organization Address City/[facility]/ZIP Co de Phone Number [facility] [place] [address] * Phosphorus (04/20/2020 6:20 PM EDT) Pathologist [facility] Phosphorus 3.3 2.5 - 4.5 mg/dL [facility] Blood specimen (specimen) 04/20/2020 6:20 PM EDT 04/20/2020 6:46 PM EDT Narrative Resulting Agency Comment Spec In Lab Raul Krishnan MD CHEMISTRY ORDERABLES Performing Organization Address [facility] Co de Phone Number [facility] [place] [address] * Magnesium (04/20/2020 6:20 PM EDT) [facility] Magnesium 0.77 0.69 - 1.07 mmol/L [facility] Blood specimen (specimen) 04/20/2020 6:20 PM EDT 04/20/2020 6:46 PM EDT Narrative Resulting Agency Comment Spec In Lab Raul Krishnan MD CHEMISTRY ORDERABLES Performing Organization Address [facility] Co de Phone Number [facility] [place] [address] * (ABNORMAL) Basic Metabolic Panel (non-fasting) (04/20/2020 6:20 PM EDT) Pathologist [facility] Glucose 92 65 - 199 mg/dL [facility] Comment:Diabetes: >=200 mg/d L plus symptoms Blood Urea Nitrogen 10 10 - 20 mg/dL [facility] Creatinine 0.51(L) 0.80 - 1.50 mg/dL [facility] Sodium 138 135 - 145 mmol/L [facility] Potassium 4.1 3.5 - 5.0 mmol/L [facility] Comment: Please note: ??Patients with WBC >100,000 may have falsely elevated Potassium levels. ??For accurate Potassium quantification in these patients send serum separator tube (gold top) for subsequent determinations. ??Contact the Clinical Chemistry Laboratory if there are any questions. Chloride 104 98 - 107 mmol/L [facility] Carbon Dioxide 21(L) 22 - 31 mmol/L [facility] Anion Gap 13 5 - 15 mmol/L [facility] Calcium 7.4(L) 8.5 - 10.5 mg/dL [facility] Est Glomerular Filtration Rate 116 >=60 mL/min/1. 73 m?? [facility] Comment: The eGFR was calculated using the CKD-EPI equation. As with all creatinine based estimates of kidney function, eGFR values calculated with the CKD-EPI equation are not accurate in patients with acute kidney failure, extremes of body mass or the acutely ill. [email or web address]AVERnkf eGFR 134 >=60 mL/min/1. 73 m?? [facility] Comment: The eGFR was calculated using the CKD-EPI equation. As with all creatinine based estimates of kidney function, eGFR values calculated with the CKD-EPI equation are not accurate in patients with acute kidney failure, extremes of body mass or the acutely ill. [email or web address] Blood specimen (specimen) 04/20/2020 6:20 PM EDT 04/20/2020 6:46 PM EDT Narrative Resulting Agency Comment Spec In Lab Raul Krishnan MD CHEMISTRY ORDERABLES [facility] [place] [address] * (ABNORMAL) Rapid Drug Screen w/o Confirmation, Urine (04/20/2020 6:10 PM EDT) Barbiturates Screen, Urine None Detected None Detected [facility] Comment: The barbiturate screen detects [...] Benzodiazepines Screen, Urine Presumptive Pos(A) None Detected [facility] Comment: The benzodiazepines screen detects [...] Cocaine Screen, Urine None Detected None Detected [facility] Comment: The cocaine metabolites screen detects benzoylecgonine (Cocaine Metabolite) at concentrations >150 ng/mL. A ? Presumptive Positive? result indicates that the screening result was positive but has not yet been confirmed by a highly-specific method. As with any screen, occasional false positive results from cross-reacting substances may occur. Not for Medico-Legal Purposes. Methadone Metabolites Screen, Urine None Detected None Detected [facility] Comment: The methadone metabolite screen detects EDDP (major methadone metabolite) at concentrations >100 ng/mL. A ? Presumptive Positive? result indicates that the screening result was positive but has not yet been confirmed by a highly-specific method. As with any screen, occasional false positive results from cross-reacting substances may occur. Not for Medico-Legal Purposes. Opiate Screen, Urine None Detected None Detected [facility] Comment: The opiates screen detects [...] Cannabinoid Screen, Urine Presumptive Pos(A) None Detected [facility] Comment: The marijuana metabolites screen detects the THC metabolite (54-vdo-1-carboxy-delta 9-THC) at concentrations >20 ng/mL. A ? Presumptive Positive? result indicates that the screening result was positive but has not yet been confirmed by a highly-specific method. As with any screen, occasional false positive results from cross-reacting substances may occur. Not for Medico-Legal Purposes. Oxycodone Screen, Urine Presumptive Pos(A) None Detected [facility] Comment: The oxycodone screen detects oxycodone and oxymorphone at concentrations >100 ng/mL. A ? Presumptive Positive? result indicates that the screening result was positive but has not yet been confirmed by a highly-specific method. As with any screen, occasional false positive results from cross-reacting substances may occur. Not for Medico-Legal Purposes. Buprenorphine Screen, Urine None Detected None Detected [facility] Comment: The buprenorphine screen detects buprenorphine at concentrations >5 ng/mL. A ? Presumptive Positive? result indicates that the screening result was positive but has not yet been confirmed by a highly-specific method. As with any screen, occasional false positive results from cross-reacting substances may occur. Not for Medico-Legal Purposes. Fentanyl Screen, Urine Presumptive Pos(A) None Detected [facility] Comment: The fentanyl screen detects fentanyl at concentrations >2 ng/mL. A ? Presumptive Positive? result indicates that the screening result was positive but has not yet been confirmed by a highly-specific method. As with any screen, occasional false positive results from cross-reacting substances may occur. Not for Medico-Legal Purposes. Tricyclics Screen, Urine None Detected None Detected [facility] Comment: The tricyclics screen detects [...] Ethanol Screen, Urine None Detected None Detected [facility] Comment:This urine ethanol a ssay detects ethanol at concentrations >/= 100 mg/L. Amphetamines Screen, Urine None Detected None Detected [facility] Comment: The amphetamine screen detects d-amphetamine and d-methamphetamine at concentrations >300 ng/mL. A ? Presumptive Positive? result indicates that the screening result was positive but has not yet been confirmed by a highly-specific method. As with any screen, occasional false positive results from cross-reacting substances may occur. Not for Medico-Legal Purposes. Adulterants Screen, Urine None Detected None Detected [facility] Comment: No adulteration or dilution of this urine sample was detected. All urine samples submitted for urine drugs of abuse analysis are tested for creatinine concentration, pH, and for the presence of oxidants, nitrites, and chromate. Urine specimen (specimen) 04/20/2020 6:10 PM EDT 04/20/2020 6:44 PM EDT Narrative Resulting Agency Comment Spec In Lab Kike Paz MD CHEMISTRY ORDERABLES Performing Organization Address [facility] Co de Phone Number [facility] [place] [address] * Rapid Drug Screen, Urine (TIM Request) (04/20/2020 6:10 PM EDT) TIM Conf Requested No [facility] TIM Requested See Comment [facility] Comment:Refer to Rapid Drug Screen w/o Confirmation, Urine for results. Urine specimen (specimen) 04/20/2020 6:10 PM EDT 04/20/2020 6:44 PM EDT Narrative Resulting Agency Comment Spec In Lab Raul Krishnan MD URINE ORDERABLES Performing Organization Address [facility] Co de Phone Number [facility] [place] [address] * XR Chest One View (04/20/2020 6:09 [...] please contact the number below. ? Narrative 04/20/2020 6:12 PM EDT EXAMINATION: XR [...] costophrenic angles are excluded from the imaged [id number], limiting evaluation of small pleural effusions. No [...] bilateral costophrenic angles are excluded from the [id number], limiting evaluation of small pleural effusions. No [...] the number below. Raul Krishnan MD IMG DX ORDERABLES * (ABNORMAL) BLOOD GAS 2 VENOUS (04/20/2020 6:09 PM EDT) pH, Venous 7.29(Criti ju) 7.32 - 7.42 [facility] PCO2, Venous 47 41 - 51 mmHg [facility] PO2, Venous 129(H) 25 - 40 mmHg [facility] Bicarbonate, Venous 22.1 mmol/L [facility] Base Excess, Venous -4.5 mmol/L [facility] Hgb Blood Gas 13.4(L) 13.7 - 16.5 gm/dL [facility] Oxyhemoglobin, Venous 96.6 % [facility] Carboxyhemoglob in, Venous 1.0 % [facility] Comment: Nonsmokers: 0.5-1.5% COHB Smokers: Variable, but usually less than 10% Toxic: 20-30% COHB Lethal: Greater than 60% COHB Methemoglobin, Venous 0.3 <=1.5 % [facility] Na Whole Blood 134(L) 135 - 145 mmol/L [facility] K Whole Blood 4.0 3.5 - 5.0 mmol/L [facility] Comment: Please note: Patients with WBC >100,000 may have falsely elevated Potassium levels. Contact the Clinical Chemistry Laboratory if there are any questions. ICa Whole Blood 1.10(L) 1.15 - 1.33 mmol/L [facility] Comment: Note: ??Total bilirubin higher than 20 mg/dL may lead to falsely low ionized calcium. CL Whole Blood 107 98 - 107 mmol/L [facility] Gluc Whole Bld 86 65 - 199 mg/dL [facility] Comment:Diabetes: >=200 mg/d L plus symptoms Lactate WB 1.2 0.5 - 2.2 mmol/L [facility] Blood Gas Source Venous [facility] Blood specimen (specimen) 04/20/2020 6:09 PM EDT 04/20/2020 6:09 PM EDT Raul Krishnan MD POINT OF CARE TEST O RDERABLES Performing Organization Address [facility] Co de Phone Number [facility] [place] [address] * (ABNORMAL) Urinalysis Microscopic Exam (04/20/2020 6:08 PM EDT) RBC, Urine 48(H) 0 - 3 /HPF [facility] WBC, Urine 1 0 - 3 /HPF [facility] Squamous Epithelial Cells Raw Data, Urine 1 <=4 /HPF [facility] Urine specimen obtained via indwelling urinary catheter (specimen) 04/20/2020 6:08 PM EDT 04/20/2020 6:44 PM EDT Narrative Resulting Agency Comment Spec In Lab Kike Paz MD URINE ORDERABLES Performing Organization Address [facility] Co de Phone Number [facility] [place] [address] * (ABNORMAL) Urinalysis with reflex Culture (04/20/2020 6:08 PM EDT) Glucose, Urine Dipstick Negative Negative mg/dL [facility] Protein, Urine Dipstick Negative Negative mg/dL [facility] Bilirubin, Urine Dipstick Negative Negative mg/dL [facility] Comment: Clinical correlation required for positive Urine Bilirubin results as false positive may occur with some drugs and drug related products. If a false positive is suspected a serum total bilirubin should be considered if clinically indicated. Urobilinogen, Urine Dipstick Normal Normal mg/dL [facility] pH, Urn (dipstick) 5.5 5.0 - 8.0 [facility] Blood, Urine Dipstick Large(A) Negative mg/dL [facility] Ketone, Urine Dipstick 40(A) Negative mg/dL [facility] Nitrite, Urine Dipstick Negative Negative [facility] Leukocytes, Urine Dipstick Negative Negative [facility] Appearance, Urine Dipstick Clear Clear [facility] Specific [place] Urine Automated >=1.030(A) 1.006 - 1.030 [facility] Color, Urine Dipstick Yellow Yellow [facility] Reflex to Culture No [facility] Urine specimen obtained via indwelling urinary catheter (specimen) 04/20/2020 6:08 PM EDT 04/20/2020 6:44 PM EDT Narrative Resulting Agency Comment Spec In Lab Raul Krishnan MD URINE ORDERABLES [facility] [place] [address] * COVID-19 PCR (04/20/2020 6:08 PM EDT) SARS-CoV-2 RNA (Rapid) Not Detected Not Detected [facility] Comment: This result should be [...] using the Simplexa COVID-19 Direct Assay by [email or web address] as authorized by the FDA issued Emergency [...] Department of Pathology and Laboratory Medicine at [facility], certified under the Clinical Laboratory Improvement Amendments [...] Recollection or referral of testing to the [facility] or [facility] laboratory may be considered for specimens with [...] Information for Healthcare Professionals (https://www.cdc.gov/coronavirus/2019-ncov/hcp/index.html). SARS-CoV-2 Source SOCIAL [employer]IA CONTENT SPECIALIST Sw[facility] Nasopharyngeal swab (specimen) 04/20/2020 6:08 PM EDT 04/20/2020 6:53 PM EDT Comment:Symptoms->COVID-19 S uspected Narrative Resulting Agency Comment Spec In Lab Raul Krishnan MD MICROBIOLOGY - GENER AL ORDERABLES [facility] [place] [address] * CT Angiogram [place] (04/20/2020 5:48 PM EDT) Anatomical Region Laterality Modality Neck, Head Computed Tomogra phy Impressions 04/20/2020 8:[address]: 1. 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 2. ??Supratentorial hydrocephalus and transependymal CSF flow. 3. ??Advanced dental caries and endodontal disease. CT angiogram of the [place]: 1. ??No aneurysm or evidence [...] please contact the number below. ? Narrative 04/20/2020 8:04 PM EDT EXAMINATION: CT HEAD WO CONTRAST (GENERIC), CT ANGIOGRAM [place] CLINICAL HISTORY: Altered mental status TECHNIQUE: CT head performed without intravenous contrast administration.CT angiogram of the [place] was performed after administration intravenous [...] [address] ANGIOGRAM OF THE [place]: Mild narrowing of the bilateral [...] CT HEAD WO CONTRAST (GENERIC), CT ANGIOGRAM [place] CLINICAL HISTORY: Altered mental status TECHNIQUE: CT head performed without intravenous contrast administration.CT angiogramof the [place] was performed after administration intravenouscontrast. [...] [address] ANGIOGRAM OF THE [place]: Mild narrowing of the bilateral [...] and endodontal disease. CT angiogram of [place]: 1. No aneurysm or evidence [...] contact the number below. Raul Krishnan MD IM CT ORDERABLES * CT Head wo Contrast (Generic) (04/20/2020 5:48 PM EDT) Anatomical Region Laterality Modality Head Computed Tomogra phy Impressions 04/20/2020 8:[address]: 1. 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 2. ??Supratentorial hydrocephalus and transependymal CSF flow. 3. ??Advanced dental caries and endodontal disease. CT angiogram of [place]: 1. ??No aneurysm or evidence [...] please contact the number below. ? Narrative 04/20/2020 8:04 PM EDT EXAMINATION: CT HEAD WO CONTRAST (GENERIC), CT ANGIOGRAM [place] CLINICAL HISTORY: Altered mental status TECHNIQUE: CT head performed without intravenous contrast administration.CT angiogram of the [place] was performed after administration intravenous [...] [address] ANGIOGRAM OF THE [place]: Mild narrowing of the bilateral [...] CT HEAD WO CONTRAST (GENERIC), CT ANGIOGRAM [place] CLINICAL HISTORY: Altered mental status TECHNIQUE: CT head performed without intravenous contrast administration.CT angiogramof the [place] was performed after administration intravenouscontrast. [...] [address] ANGIOGRAM OF THE [place]: Mild narrowing of the bilateral [...] and endodontal disease. CT angiogram of the [place]: 1. No aneurysm or evidence [...] contact the number below. Raul Krishnan MD [facility] [place] ORDERABLES * Film Library- Storage Only DX Chest (04/20/2020 5:01 PM EDT) Narrative [facility] - 04/20/2020 5:01 PM EDT This exam is auto-finalizing. It's purpose is for storage only. Jana Trinh MD [facility] FILM LIBRARY ORD ERABLES Performing Organization Address [facility] de Phone Number [place], [place] * Film Library- Storage Only CT Chest Abdomen Pelvis (04/20/2020 4:16 PM EDT) Narrative [facility] - 04/20/2020 4:16 PM EDT This exam is auto-finalizing. It's purpose is for storage only. Jana Trinh MD [facility] FILM [employer] ORD [employer] Performing Organization Address [facility] Co de Phone Number [place], [place] * Film Library- Storage Only CT Head And Spine (04/20/2020 4:15 PM EDT) Narrative [facility] - 04/20/2020 4:15 PM EDT This exam is auto-finalizing. It's purpose is for storage only. Jana Trinh MD IM FILM LIBRARY ORD ERABLES [facility] [place], [place] documented in this encounter Visit Diagnoses Not on filedocumented in this encounter Admitting Diagnoses Diagnosis Intraventricular hemorrhage Intracerebral hemorrhage documented in this encounter Administered Medications Inactive Administered Medications - up to 3 most recent administrations Medication Order MAR Action Action Date Dose Rate Site acetaminophen (Tylenol) tablet 500 mg 500 mg, [...] receiving this medication as a nebulizer? Yes amLODIPine (Norvasc) tablet 10 mg 10 mg, Oral, DAILY, First dose on Wed05/09/20 at 0900, Until Discontinued, Routine Given 05/10/2020 8:40 AM EDT 10 mg Given 05/09/2020 8:51 AM EDT 10 mg enoxaparin (LOVENOX) injection 40 mg 40 mg, Subcutaneous, EVERY EVENING, First dose on [place] 05/02/20 at 1700, Until Discontinued, Routine Given 05/09/2020 5:21 PM EDT 40 mg Abdominal Tissue Given 05/08/2020 4:04 PM EDT 40 mg Ri ght Lower Quadrant Given 05/07/2020 5:53 PM EDT 40 mg famotidine (Pepcid) tablet 40 mg 40 mg, Oral, DAILY, First dose on Wed05/09/20 at 0900, Until Discontinued, Routine Given 05/10/2020 8:39 AM EDT 40 mg Given 05/09/2020 8:51 AM EDT 40 mg folic acid (Folvite) tablet 1,000 mcg 1,000 mcg (1 mg), Oral, DAILY, First dose (after last modification) on Wed05/09/20 at 0900, Until Discontinued, Routine Given 05/10/2020 8:39 AM EDT 1,000 m cg Given 05/09/2020 8:51 AM EDT 1,000 mcg labetalol (NORMODYNE,TRANDATE) injection 10-20 mg 10-20 mg, [...] consider enalaprilat or niCARdipine., Routine Given 05/05/2020 4:0 4 AM EDT 20 mg Given 05/01/2020 10:02 PM EDT 10 mg Given 05/01/2020 5:58 AM EDT 10 mg lidocaine (LIDODERM) 5 % patch 1 patch 1 patch, Transdermal, DAILY, First dose on [facility] 05/09/20 at 1030, Until Discontinued, Apply patch(es) for 12 hours, and then remove for 12 hours For back pain, Routine Patch Applied 05/09/2020 12:18 PM EDT 1 patch 07- Back Lower (Left) lisinopriL (Prinivil;Zestril) tablet 40 mg 40 mg, Oral, DAILY, First dose (after last modification) on [facility] 05/09/20 at 0900, Until Discontinued, Routine Given 05/10/2020 8:39 AM EDT 40 mg Given 05/09/2020 8:51 AM EDT 40 mg modafiniL (Provigil) tablet 100 mg 100 mg, Oral, 2 TIMES DAILY, First dose (after last modification) on [facility] 05/09/20 at 0700, Until Discontinued, Please give [...] Given 05/08/2020 8:16 AM EDT 1 tablet nicotine (NICODERM CQ) 14 mg/24 hr patch [...] 0900, Verify nicotine 14 mg/24 hr patch. propranolol (Inderal) (4 mg/mL) oral liquid 40 mg 40 mg, Oral, EVERY 8 HOURS SCHEDULED, First dose (after last modification) on Wed05/08/20 at 1400, Until Discontinued, Routine Given 05/10/2020 6:32 AM EDT 40 mg Given 05/09/2020 10:23 PM EDT 40 mg Given 05/09/2020 2:47 PM EDT 40 mg senna-docusate (Pericolace) 8.6-50 mg per tablet 2 tablet 2 tablet, Oral, DAILY PRN, Starting on Wed05/08/20 at 1224, Until Wed05/10/20 at 1355, Constipation, Routine thiamine (Vitamin B1) tablet 100 mg 100 mg, Oral, DAILY, First dose (after last modification) on Wed05/09/20 at 0900, Until Discontinued, Routine Given 05/10/2020 8:40 AM EDT 100 mg Given 05/09/2020 10:26 AM EDT 100 mg documented in this encounter Active and Recently Administered Medications Times are shown in EDT. Scheduled Medication Order 05/08/2020 05/09/2020 05/10/2020 amLODIPine (Norvasc) tablet 10 mg (CANCELED) 10 mg, Per NG tube, DAILY, First dose (after last modification) on Wed05/03/20 at 0900, Until Discontinued, Routine 0812 (Given - Provider: Miguel Mendez RN) amLODIPine (Norvasc) tablet 10 mg 10 mg, Oral, DAILY, First dose on [place] 05/09/20 at 0900, Until Discontinued, Routine 0851 (Given - Provider: Dai Davis RN) 0840 (Given - Provider: Obey Restrepo RN) enoxaparin (LOVENOX) injection 40 mg 40 mg, Subcutaneous, EVERY EVENING, First dose on [place] 05/02/20 at 1700, Until Discontinued, Routine 1604 (Given - Provider: Shruthi Gross) 1721 (Given - Provider: Dai Davis RN) famotidine (Pepcid) tablet 40 mg (CANCELED) 40 mg, Per NG tube, DAILY, First dose on Wed04/28/20 at 0900, Until Discontinued, Routine 0811 (Given - Provider: Miguel Mendez RN) famotidine (Pepcid) tablet 40 mg 40 mg, Oral, DAILY, First dose on [place] 05/09/20 at 0900, Until Discontinued, Routine 0851 (Given - Provider: Dai Davis RN) 0839 (Given - Provider: Obey Restrepo, ANNA) folic acid (Folvite) tablet 1,000 mcg (CANCELED) [...] given this aM) 0839 (Given - Provider: Obey Restrepo, RN) free water bolus 300 mL (CANCELED) [...] Until Discontinued, Routine 0851 (Given - Provider: aDi Davis RN) 0839 (Given - Provider: Obey Restrepo, ANNA) modafiniL (Provigil) tablet 100 mg (CANCELED) 100 mg, Per NG tube, 2 TIMES DAILY, First dose (after last modification) on [place] 05/02/20 at 1200, Until Discontinued, Please give morning dose at 7AM, Routine 0511 (Given - Provider: Zahra Panda RN)1217 (Given - Provider: Miguel Mendez RN) modafiniL (Provigil) tablet 100 mg 100 mg, Oral, 2 TIMES DAILY, First dose (after last modification) on [facility] 05/09/20 at 0700, Until Discontinued, Please give morning dose at 7AM, Routine 0851 (Given - Provider: Dai Davis RN)1218 (Given - Provider: Dai Davis RN) 0658 (Given - Provider: Scarlett Krishnan RN)1200 (Due) multivitamin with minerals (THERA-M) tablet 1 tablet 1 tablet, Oral, DAILY, First dose on Wed04/21/20 at 0900, Until Discontinued, Routine 0816 (Given - Provider: Miguel Mendez RN) 0851 (Given - Provider: Dai Davis, ANNA) 0840 (Given - Provider: Obey Restrepo, ANNA) nicotine (NICODERM CQ) 14 mg/24 hr patch 14 mg(Linked Group 1) 14 mg (1 patch), Transdermal, Administer over 24 Hours, DAILY, 7 doses, First dose on Wed05/09/20 at 1030, Last dose on Wed05/15/20 at 0900, Routine 1026 (Given - Provider: Dai Davis, [...] on Wed05/02/20 at 1015, Until Discontinued, Routine 0816 (Patch Applied - Provider: Miguel Mendez RN) 0900 (Not Given - Provider: Herrera Garcia RN - Reason: Per MD Order) piperacillin-tazobacta m (ZOSYN) 3.375 g vial attach to sodium chloride 0.9% 50 mL Mini-Bag Plus () 3.375 g, Intravenous, EVERY 8 HOURS, 19 doses, First dose on 05/04/20 at 0000, Last dose on [place] 05/09/20 at 1930, Administer over 4 Hours, Warning Vesicant/Irritant Medication Do not administer or Y-site with lactated ringers., Indication for (Active or Suspected): Bacteremia/Sepsis 0354 (New Bag - Provider: Zahra Panda RN)0754 (Stopped - Provider: Miguel Mendez RN)1224 (New Bag - Provider: Miguel Mendez RN)1624 (Stopped - Provider: Obey Restrepo, NANA)1802 (Canceled Entry - Provider: Cassia Mariscal RN - Reason: Entered in Error)1833 (New Bag - Provider: Obey Restrepo RN)2233 (Stopped - Provider: Scarlett Krishnan RN) 0328 (New Bag - Provider: Scarlett Krishnan RN)0728 (Stopped - Provider: Dai Davis, ANNA)1218 (New Bag - Provider: Dai Davis RN)1618 (Stopped - Provider: Dai Davis RN)2012 (New Bag - Provider: Scarlett Krishnan RN)2359 (Stopped - Provider: Scarlett Krishnan, ANNA) propranolol (Inderal) (4 mg/mL) oral liquid 40 mg (CANCELED) 40 mg, Per NG tube, EVERY 8 HOURS SCHEDULED, First dose (after last modification) on [place] 05/02/20 at 1400, Until Discontinued, Routine 0512 (Given - Provider: Zahra Panda RN) propranolol (Inderal) (4 mg/mL) oral liquid 40 mg 40 mg, Oral, EVERY 8 HOURS SCHEDULED, First dose (after last modification) on Wed05/08/20 at 1400, Until Discontinued, Routine 1423 (Given - Provider: Shruthi Gross)2157 (Given - Provider: Scarlett Krishnan, ANNA) 0611 (Given - Provider: Scarlett Krishnan RN)1447 (Given - Provider: Dai Davis RN)2223 (Given - Provider: Scarlett Krishnan, ANNA) 0632 (Given - Provider: Scarlett Krishnan RN) thiamine (Vitamin B1) tablet 100 mg (CANCELED) 100 mg, Per NG tube, DAILY, First dose (after last modification) on 05/03/20 at 0900, Until Discontinued, Routine 0814 (Given - Provider: Miguel Mendez, ANNA) thiamine (Vitamin B1) tablet 100 mg 100 mg, Oral, DAILY, First dose (after last modification) on [place] 05/09/20 at 0900, Until Discontinued, Routine 1026 (Given - Provider: Dai Davis, RN) 0840 (Given - Provider: Obey Restrepo RN) PRN Medication Order 05/08/2020 05/09/2020 05/10/2020 acetaminophen (Tylenol) tablet 500 mg 500 mg, Oral, EVERY 6 HOURS PRN, Starting on Wed05/08/20 at 1222, Until Wed05/10/20 at 1355, Pain, Maximum dose of acetaminophen is 4000 mg from all sources in 24 hours., Routine 1331 (Given - Provider: Miguel Mendez RN) 2109 (Given - Provider: Scarlett Krishnan RN) albuteroL 90 mcg/actuation inhaler 2 puff 2 [...] documented as of this encounter Care Teams Disability Representative Relationship Specialty Start Date End Date None None PCP - General 04/20/20 05/09/20 documented as of this encounter
--- OUTSIDE RECORDS SUMMARY | 2024-07-28 22:47 | XMS_ITS | Encounter Summary ---
Author Organization [facility] Address [facility] [place] [address] Care Team Providers Care Paper Wood Cutter Name Role Phone None Primary Care Provider Unavailabl e Encounter Details Date Type Department Care Team (Latest Contact Info) Description 04/20/2020 4:25 PM EDT - 04/20/2020 5:23 PM EDT Hospital [place] [phone] Zuhair De La Garza MD [facility] [place] [address] Discharge Disposition: Home Social History Tobacco Use Types Packs/Day Years Used Date Smoking Tobacco: Never Assessed Sex and Gender Information Value Date Recorded Sex Assigned at Not on file Gender Identity Not on file Sexual Orientation Not on file documented as of this encounter Medications at Time of Discharge Medication Sig Dispensed Refills Start Date End Date acetaminophen (Tylenol) 500 mg Tablet Take 1 [...] 1 tablet by mouth daily. 05/10/2020 05/31/2020 hydroCODone-acetamino phen (VICODIN) 5-500 mg per tablet 1-2 Tablet(s), PO, Q8H 10/12/200104/22 acetaminophen (TYLENOL) 325 mg tablet 325m-2 Tablet(s), PO, Q4-6H,PRN 08/11/2001 05/10/2020 silver sulfADIAZINE (SILVADENE) 1 % cream 1 Appl(s), Top, BID 08/11/2001 05/10/2020 documented as of this encounter Plan of Treatment Not on file documented as of this encounter Visit Diagnoses Not on filedocumented in this encounter Care Teams Paper Wood Cutter Relationship Specialty Start Date End Date None None PCP - General 04/20/20 05/09/20 documented as of this encounter
--- OUTSIDE RECORDS SUMMARY | 2024-07-28 22:47 | XMS_ITS | Encounter Summary ---
Author Organization [facility] Address [facility] [place] [address] Care Team Providers Care J2Ee Java Developer Name Role Phone None Primary Care Provider Unavailabl e Encounter Details Date Type Department Care Team (Late st Contact Info) Description 04/20/2020 Telephone [place] [address] Obey Moreno MD [facility] [place] [address] Social History Tobacco Use Types Packs/Day Years Used Date Smoking Tobacco: Never Assessed Sex and Gender Information Value Date Recorded Sex Assigned at Not on file Gender Identity Not on file Sexual Orientation Not on file documented as of this encounter Miscellaneous Notes * Telephone Encounter - Obey Moreno MD - 04/20/2020 3:39 PM EDT OSH: [facility] Provider: Linden Hendrickson See H&P from same date. documented in this encounter Plan of Treatment Not on file documented as of this encounter Visit Diagnoses Not on filedocumented in this encounter Additional Health Concerns Infection Onset Date Last Indicated Resolved Time Rule Out COVID-19 04/20/2020 04/20/2020 04/20/2020 9:54 PM EDT documented as of this encounter Care Teams J2Ee Java Developer Relationship Specialty Start Date End Date None None PCP - General 04/20/20 05/09/20 documented as of this encounter
--- OUTSIDE RECORDS SUMMARY | 2024-07-28 22:47 | XMS_ITS | Encounter Summary ---
Author Organization [facility] Address [facility] [place] [address] Care Team Providers Care Business Management Professor Name Role Phone None Primary Care Provider Unavailabl e Encounter Details Date Type Department Care Team (Late st Contact Info) Description 04/20/2020 4:20 PM EDT Ancillary Procedure [place] [phone] Social History Tobacco Use Types Packs/Day Years Used Date Smoking Tobacco: Never Assessed Sex and Gender Information Value Date Recorded Sex Assigned at Not on file Gender Identity Not on file Sexual Orientation Not on file documented as of this encounter Plan of Treatment Not on file documented as of this encounter Procedures Procedure Name Priority Date/Time Associated Diagnosis Comments FILM LIBRARY STORAGE ONLY CT HEAD AND SPINE STAT 04/20/2020 4:15 PM EDT documented in this encounter Results * Film Library- Storage Only CT Head And Spine (04/20/2020 4:15 PM EDT) Narrative [facility] - 04/20/2020 4:15 PM EDT This exam is auto-finalizing. It's purpose is for storage only. Jana Pruett MD G FILM LIBRARY ORD ERABLES [place], [place] documented in this encounter Visit Diagnoses Not on filedocumented in this encounter Care Teams Business Management Professor Relationship Specialty Start Date End Date None None PCP - General 04/20/20 05/09/20 documented as of this encounter
--- OUTSIDE RECORDS SUMMARY | 2024-07-28 22:47 | XMS_ITS | Encounter Summary ---
Author Organization [facility] Address [address] [place] [address] Care Team Providers Care Backhoe Operator Name Role Phone Unavailable Primary Care Provider Unavailabl e Encounter Details Date Type Department Care Team (Late st Contact Info) Description 03/09/2023 Lab Requisition [facility] Pathology & Laboratory Medicine - [facility] [address] [place] [address] Outr Resulting Lab, Provider Social History Tobacco Use Types Packs/Day Years Used Date Smoking Tobacco: Never Assessed Interpersonal Safety Answer Date Record ed Physically Hurt Never 10/15/2020 Verbally Threaten Not on file 10/15/2020 Sex and Gender Information Value Date Recorded Sex Assigned at Not on file Gender Identity Not on file Sexual Orientation Not on file documented as of this encounter Plan of Treatment Not on file documented as of this encounter Procedures Procedure Name Priority Date/Time Associated Diagnosis Comments HCV RNA DETECT QUANT Today 03/08/2023 11:30 EDT HEPATITIS C AB W REFLEX TO HCV RNA BY PCR Routine 03/08/2023 11:30 EDT documented in this encounter Results * (ABNORMAL) HCV RNA DETECT QUANT (03/08/2023 11:30 EDT) HCV RNA Qualitative Detected( A) Undetected 03/10/2023 12:03 EDT [facility] HCV RNA Quantitative 64,700(H) Undetected IU/mL 03/10/2023 12:03 EDT [facility] Blood VENOUS BLOOD / Unknown 03/08/2023 11:30 EDT 03/09/2023 17:35 EDT Narrative [facility] - 03/10/2023 12:03 EDT The quantification range of this assay is 15 IU/mL to 100,000,000 IU/mL. Testing was performed using the Rajat HCV test ([employer] with the rajat [id number] System. Provider Outr Resulting Lab CHEMISTRY & BLOOD GAS ORDERABLES Performing Organization Address City/[facility]/ZIP Co de Phone Number [facility] [address] [place] [address] * (ABNORMAL) HEPATITIS C AB W REFLEX TO HCV RNA BY PCR (03/08/2023 11:30 EDT) Hep C Antibody Reactive(A ) Negative 03/09/2023 21:00 EDT [facility] Comment: Supplemental testing for HCV RNA is ordered to rule out active HCV infection. Blood VENOUS BLOOD / Unknown 03/08/2023 11:30 EDT 03/09/2023 17:35 EDT Provider Outr Resulting Lab CHEMISTRY & BLOOD GAS ORDERABLES Performing Organization Address [facility] Co de Phone Number [facility] [address] [place] [address] documented in this encounter Visit Diagnoses Not on filedocumented in this encounter
--- OUTSIDE RECORDS SUMMARY | 2024-07-28 22:47 | XMS_ITS | Clinical Summary ---
Author Organization [facility] Address [address] [place] [address] Care Team Providers Care Mortgage Loan Assistant Name Role Phone Unavailable Primary Care Provider Unavailabl e Social History Tobacco Use Types Packs/Day Years Used Date Smoking Tobacco: Never Assessed Interpersonal Safety Answer Date Record ed Physically Hurt Never 10/15/2020 Verbally Threaten Not on file 10/15/2020 Sex and Gender Information Value Date Recorded Sex Assigned at Not on file Gender Identity Not on file Sexual Orientation Not on file Plan of Treatment Health Maintenance Due Date Last Done Comments RSV Immunization ( o r 60+ Years) (1 - 1-dose 60+ series) 2019 COVID-19 Vaccine (2022- season) 2023 Fall Risk Screening 02/29/2024 Hepatitis C Screen Completed 03/08/2023, 0 03/08/2023, 07/05/2020 Procedures Procedure Name Priority Date/Time Associated Diagnosis Comments HEPATITIS C AB W REFLEX TO HCV RNA BY PCR Routine 03/08/2023 11:30 EDT from Last 3 Months or Most Recently Relevant to Health Maintenance Results * (ABNORMAL) HEPATITIS C AB W REFLEX TO HCV RNA BY PCR (03/08/2023 11:30 EDT) Hep C Antibody Reactive(A ) Negative 03/09/2023 21:00 EDT [facility] Comment: Supplemental testing for HCV RNA is ordered to rule out active HCV infection. Blood VENOUS BLOOD / Unknown 03/08/2023 11:30 EDT 03/09/2023 17:35 EDT Provider Outr Resulting Lab CHEMISTRY & BLOOD GAS ORDERABLES [facility] [address] [place] [address] from Last 3 Months or Most Recently Relevant to Health Maintenance
--- OUTSIDE RECORDS SUMMARY | 2024-07-28 22:47 | XMS_ITS | Encounter Summary ---
Author Organization [facility] Address [address] [place] [address] Care Team Providers Care Axle Polisher Name Role Phone Unavailable Primary Care Provider Unavailabl e Encounter Details Date Type Department Care Team (Late st Contact Info) Description 07/06/2020 Lab Requisition [facility] Pathology & Laboratory Medicine - [facility] [address] [place] [address] Outr Resulting Lab, Provider Social History Tobacco [...] Associated Diagnosis Comments HCV RNA DETECT QUANT Routine 07/05/2020 11:50 EDT HEPATITIS A ANTIBODY IGM Today 07/05/2020 11:50 EDT HEPATITIS A TOTAL ANTIBODY W REFLEX Routine 07/05/2020 11:50 EDT HEPATITIS B SURFACE ANTIBODY Routine 07/05/2020 11:50 EDT HEPATITIS B SURFACE ANTIGEN Routine 07/05/2020 11:50 EDT documented in this encounter Results * HEPATITIS A ANTIBODY IGM (07/05/2020 11:50 EDT) Hepatitis A Antibody, IgM Negative Negative 07/08/2020 14:24 EDT [facility] Blood VENOUS BLOOD / Unknown 07/05/2020 11:50 EDT 07/07/2020 16:43 EDT Narrative [facility] - 07/08/2020 14:24 EDT The results of this assay can be falsely lowered due to the consumption of Biotin. Provider Outr Resulting Lab CHEMISTRY & BLOOD GAS ORDERABLES Performing Organization Address [facility] de Phone Number [facility] [address] [place] [phone] * (ABNORMAL) HCV RNA DETECT QUANT (07/05/2020 11:50 EDT) HCV RNA Qualitative Detected( A) Undetected 07/08/2020 13:39 EDT [facility] HCV RNA Quantitative 10,719(H) Undetected IU/mL 07/08/2020 13:39 EDT [facility] Blood VENOUS BLOOD / Unknown 07/05/2020 11:50 EDT 07/07/2020 16:43 EDT Narrative [facility] - 07/08/2020 13:39 EDT The quantification range of this assay is 15 IU/mL to 100,000,000 IU/mL. ??Testing was performed on the WEND[employer] Ampliprep/WENDY TaqMan HCV v2.0 ([employer] Provider Outr Resulting Lab CHEMISTRY & BLOOD GAS ORDERABLES Performing Organization Address [facility] de Phone Number [facility] [address] [place] [phone] * HEPATITIS B SURFACE ANTIBODY (07/05/2020 11:50 EDT) Hep B Surface Ab, Quantitative <3.1 See Note mIU/mL 07/08/2020 9:07 EDT [facility] Comment: Reference Range for Hep B Surface Ab, Quant: Positive: >= 10.0 mIU/mL Negative: ??< 10.0 mIU/mL Patient is presumed to not be immune to infection with Hepatitis B Virus. Hep B Surface Ab, Qualitative Negative See Note 07/08/2020 9:07 EDT [facility] Comment: Reference Range for Hep B Surface Ab, Qual: Unvaccinated: ??Negative Vaccinated: ??Positive Blood VENOUS BLOOD / Unknown 07/05/2020 11:50 EDT 07/07/2020 16:43 EDT Provider Outr Resulting Lab CHEMISTRY & BLOOD GAS ORDERABLES Performing Organization Address City/[facility]/ZIP Co de Phone Number [facility] [address] [place] [address] * HEPATITIS B SURFACE ANTIGEN (07/05/2020 11:50 EDT) Hep B Surface Ag Negative Negative 07/08/2020 9:16 EDT [facility] Blood VENOUS BLOOD / Unknown 07/05/2020 11:50 EDT 07/07/2020 16:43 EDT Provider Outr Resulting Lab CHEMISTRY & BLOOD GAS ORDERABLES Performing Organization Address [facility] de Phone Number [facility] [address] [place] [address] * (ABNORMAL) HEPATITIS A TOTAL ANTIBODY W REFLEX (07/05/2020 11:50 EDT) Hepatitis A Antibody, Total Positive(A ) Negative 07/08/2020 10:32 EDT [facility] Blood VENOUS BLOOD / Unknown 07/05/2020 11:50 EDT 07/07/2020 16:43 EDT Narrative [facility] - 07/08/2020 10:32 EDT The result of this assay can be falsely elevated (Positive) due to the consumption of Biotin. Provider Outr Resulting Lab CHEMISTRY & BLOOD GAS ORDERABLES Performing Organization Address [facility] Co de Phone Number [facility] [address] [place] [address] documented in this encounter Visit Diagnoses Not on filedocumented in this encounter
--- OUTSIDE RECORDS SUMMARY | 2024-07-28 22:47 | XMS_ITS | Encounter Summary ---
Author Organization [facility] Address [facility] [place] [address] Care Team Providers Care Rigging Up Worker Name Role Phone None Primary Care Provider Unavailabl e Encounter Details Date Type Department Care Team (Late st Contact Info) Description 04/20/2020 5:05 PM EDT Ancillary Procedure [place] [phone] Social History Tobacco Use Types Packs/Day Years [...] Associated Diagnosis Comments FILM LIBRARY STORAGE ONLY DX CHEST STAT 04/20/2020 5:01 PM EDT documented in this encounter Results * Film Library- Storage Only DX Chest (04/20/2020 5:01 PM EDT) Narrative [facility] - 04/20/2020 5:01 PM EDT This exam is auto-finalizing. It's purpose is for storage only. Jana Pruett MD IMG FILM LIBRARY ORD ERABLES [place], [place] documented in this encounter Visit Diagnoses Not on filedocumented in this encounter Care Teams Rigging Up Worker Relationship Specialty Start Date End Date None None PCP - General 04/20/20 05/09/20 documented as of this encounter
--- OUTSIDE RECORDS SUMMARY | 2024-07-28 22:47 | XMS_ITS | Encounter Summary ---
Author Organization [facility] Address [facility] [place] [address] Care Team Providers Care Groundskeeping Maintenance Name Role Phone None Primary Care Provider Unavailabl e Encounter Details Date Type Department Care Team (Late st Contact Info) Description 04/20/2020 4:25 PM EDT Ancillary [place] [phone] Social History Tobacco Use Types Packs/Day Years [...] Diagnosis Comments FILM LIBRARY STORAGE ONLY CT CHEST ABDOMEN PELVIS STAT 04/20/2020 4:16 PM EDT documented in this encounter Results * Film Library- Storage Only CT Chest Abdomen Pelvis (04/20/2020 4:16 PM EDT) Narrative [facility] - 04/20/2020 4:16 PM EDT This exam is auto-finalizing. It's purpose is for storage only. Jana Pruett MD G FILM LIBRARY ORD ERABLES [place], [place] documented in this encounter Visit Diagnoses Not on filedocumented in this encounter Care Teams Groundskeeping Maintenance Relationship Specialty Start Date End Date None None PCP - General 04/20/20 05/09/20 documented as of this encounter
--- OUTSIDE RECORDS SUMMARY | 2024-07-28 22:47 | XMS_ITS | Referral Summary ---
Author Organization [facility] Address [address] [place] [address] Care Team Providers Care Wood Pole Treater Name Role Phone Unavailable Primary Care Provider [...] Orientation Not on file Plan of Treatment Not on file Procedures Procedure Name Priority Date/Time Associated Diagnosis Comments HEPATITIS C AB W REFLEX TO HCV RNA BY PCR Routine 03/08/2023 11:30 EDT from Last 3 Months or Most Recently Relevant to Health Maintenance Results * (ABNORMAL) HEPATITIS C AB W REFLEX TO HCV RNA BY PCR (03/08/2023 11:30 EDT) Hep C Antibody Reactive(A ) Negative 03/09/2023 21:00 EDT [facility] Comment: Supplemental testing for HCV RNA is ordered to rule out active HCV infection. Blood VENOUS BLOOD / Unknown 03/08/2023 11:30 EDT 03/09/2023 17:35 EDT Provider Outr Resulting Lab CHEMISTRY & BLOOD GAS ORDERABLES [facility] [address] [place] [address] from Last 3 Months or Most Recently Relevant to Health Maintenance
[2024-07-28 22:48] LABS: Source Nasopharynx
[2024-07-28] MEDS: Droperidol 5 MG/2 ML VIAL 2.5 MG IVP (23:33)
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
[2024-07-28 23:46] LABS: Troponin I 6 ng/L (4-76)
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
[2024-07-29] VITALS (82 sets, daily range): BP systolic 126–202; BP diastolic 69–132; PULSE 77–102; RESP 5–25; O2SAT 90–99
--- NOTE | 2024-07-29 00:23 | DI.VRAD_ITS ---
PROCEDURE INFORMATION: Exam: CT Chest With Contrast; Diagnostic Exam date and time: 07/28/2024 11:29 PM Age: 64 years old Clinical indication: Injury or trauma; Fall; Generalized; Blunt trauma (contusions or hematomas); Injury date: 07/28/24; Injury details: Trauma; Unknown TECHNIQUE: Imaging protocol: Diagnostic computed tomography of the chest with contrast. 3D rendering (Not supervised by radiologist): MIP and/or 3D reconstructed images were created by the technologist. Radiation optimization: All CT scans at this facility use at least one of these dose optimization techniques: automated exposure control; mA and/or kV adjustment per patient size (includes targeted exams where dose is matched to clinical indication); or iterative reconstruction. Contrast material: OMNIPAQUE 350; Contrast volume: 100 ml; Contrast route: INTRAVENOUS (IV); COMPARISON: CT CHEST/ABD/PEL W 04/20/2020 3:27 PM FINDINGS: Lungs: Motion artifact in the lungs. Moderate pulmonary emphysema. A few scattered tiny pulmonary nodules. Follow-up as per institutional protocol. Scattered microatelectasis. Pleural spaces: No pneumothorax. No pleural effusion. Heart: Mild cardiomegaly. Lymph nodes: No enlarged lymph nodes. Vasculature: No aortic aneurysm. Bones/joints: Cervical spine fixation hardware is intact as imaged. There are nonacute rib deformities, mostly chronic, left lateral 11th rib fracture near the costochondral junction is probably lung subacute. Chronic midthoracic compression deformity. Soft tissues: No suspicious lesions. IMPRESSION: 1. No acute findings. 2. Incidental findings as described. PROCEDURE INFORMATION: Exam: CT Abdomen And Pelvis With Contrast Exam date and time: 07/28/2024 11:29 PM Age: 64 years old Clinical indication: Injury or trauma; Fall; Generalized; Blunt trauma (contusions or hematomas); Injury date: 07/28/24; Injury details: Trauma; Unknown TECHNIQUE: Imaging protocol: Computed tomography of the abdomen and pelvis with contrast. 3D rendering (Not supervised by radiologist): MIP and/or 3D reconstructed images were created by the technologist. Radiation optimization: All CT scans at this facility use at least one of these dose optimization techniques: automated exposure control; mA and/or kV adjustment per patient size (includes targeted exams where dose is matched to clinical indication); or iterative reconstruction. Contrast material: OMNIPAQUE 350; Contrast volume: 100 ml; Contrast route: INTRAVENOUS (IV); COMPARISON: CT CHEST/ABD/PEL W 04/20/2020 3:27 PM FINDINGS: Liver: Macronodular liver is most consistent with cirrhosis. No hepatic masses. Gallbladder and biliary ducts: No calcified stones. No gross ductal dilation. Pancreas: No ductal dilation. No mass . Spleen: No splenomegaly or suspicious lesions. Adrenal glands: No suspicious mass. Kidneys and ureters: No hydronephrosis. No masses. Stomach and bowel: Moderate colonic stool burden. No colitis or diverticular disease. Small bowel feces sign and small bowel suggest dysmotility. No mechanical obstruction. Appendix: No evidence of appendicitis. Intraperitoneal space: No free air. No significant fluid collection. Vasculature: Atherosclerosis. No aortic aneurysm. Lymph nodes: No significantly enlarged lymph nodes. Urinary bladder: The urinary bladder is distended. No urinary bladder wall thickening. Reproductive: Moderate prostatic enlargement. Bones/joints: Chronic deformities of L2 and L5. No acute fracture or subluxation. Soft tissues: No suspicious lesions. IMPRESSION: 1. No acute findings. 2. Incidental findings as described. Dictated and Authenticated by: Lulu Lua MD. Ordering:CYNTHIA Gamble MD
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
[2024-07-29 01:52] LABS: Bilirubin Negative (Negative); Blood Trace-lysed (Negative); Clarity Clear (Clear); Glucose Negative (Negative); Ketones Negative (Negative); Leukocyte Esterase Negative (Negative); Nitrite Negative (Negative); Urobilinogen 0.2 mg/dL (Up to 0.2); pH 6.5 (5-8)
[2024-07-29 01:56] LABS: Bacteria Rare HPF (Negative); C & S Indicated? No; Casts Negative LPF (Negative); Crystals Negative HPF (Negative); Epithelial Cells Negative HPF (Negative); Mucus Negative (Negative); RBC 0-2 HPF (0-2); WBC Negative HPF (0-5)
[2024-07-29] MEDS: LORazepam 2 MG/ML VIAL 1 MG IM (02:01)
[2024-07-29 02:02] LABS: *AMPHETAMINES SCREEN URINE Negative (Negative); *BARBITURATES SCREEN URINE Negative (Negative); *BENZODIAZEPINES SCREEN URINE Negative (Negative); Cannabinoids THC Negative (Negative); Cocaine Screen,Urine Positive (Negative); METHADONE URINE SCREEN Negative (Negative); OPIATES URINE SCREEN Negative (Negative); Tricyclic Antidepressants Negative (Negative)
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
== END 2024-07-29 12:27 | disposition home or self-care (01) ==
PROVIDERS: Physician Assistant; Emergency Provider Emergency Medicine; PCP Physician Assistant
DX: F10.120 Alcohol abuse with intoxication, uncomplicated (principal); E87.1 Hypo-osmolality and hyponatremia; F17.200 Nicotine dependence, unspecified, uncomplicated; Z78.1 Physical restraint status; Y90.8 Blood alcohol level of 240 mg/100 ml or more; Z86.73 Personal history of transient ischemic attack (TIA), and cerebral infarction without residual deficits; S09.90XA Unspecified injury of head, initial encounter; W22.09XA Striking against other stationary object, initial encounter; Y93.89 Activity, other specified; Y92.89 Other specified places as the place of occurrence of the external cause
CPT/HCPCS: 00123; 74177; 80048; 80076; 80307; 82550; 83690; 84145; 87637; 93005; 96365; 96366; 96372; 96375; 99285; 70450; 71260; 72125; 80320; 81003; 81015; 82140; 83605; 83735; 84484; 85025; 93010; J1790; J2060; J3411; J3475; J3490

== ENCOUNTER 2025-08-01 11:17 | Inpatient (IN) | payer MEDICARE, MEDICAID, SELFPAY ==
--- NOTE | 2025-08-01 11:15 | RT.EKG_ITS ---
APPROVED REPORT Exam: Resting ECG Reason for Exam: Weakness Patient Location: E HR:101 bpm ECG Measurements Heart Rate 101 AXIS HI 135 P 86 QRSd 90 QRS 7 QT 354 T 63 QTc 459 Conclusion Sinus tachycardia...rate> 99
[2025-08-01 11:25] VITALS: BP 156/79; PULSE 100; RESP 16; TEMP 36.6; O2SAT 100
--- NOTE | 2025-08-01 11:30 | DI.CT_ITS ---
Exam(s) CT BRAIN NECK CTA EXAM: CT BRAIN NECK CTA CLINICAL HISTORY: aphasia, onset two weeks ago. TECHNIQUE: Imaging Protocol: Axial CT angiography was performed with multi- slice acquisition and multi-planar and MIP reconstructions. CONTRAST MATERIAL: Intravenous: Omnipaque 350 Contrast volume:70 ml COMPARISON: CT CT HEAD CERVICAL SPINE WO from 07/28/2024 FINDINGS: CT Head W/O and W contrast: Ventricles and Extra axial spaces: Normal in size and morphology for the patient's age. Hemorrhage: None. Cerebral parenchyma: No evidence of acute infarct or mass. Stable white matter changes of microvascular disease. Midline shift: None. Brainstem/Cerebellum: No acute findings.. Calvarium: Normal. Visualized Paranasal sinuses/Mastoids: Clear. Soft Tissues: Unremarkable. Enhancement: Normal. Venous sinuses are patent. CTA Brain W: Internal Carotid Arteries: Right: No aneurysm, occlusion or significant stenosis. Left: No aneurysm, occlusion or significant stenosis. Middle Cerebral Arteries: Right: No aneurysm, occlusion or significant stenosis. Left: No aneurysm, occlusion or significant stenosis. Anterior Cerebral Arteries: Right: No aneurysm, occlusion or significant stenosis. Left: No aneurysm, occlusion or significant stenosis. Posterior cerebral Arteries: Right: No aneurysm, occlusion or significant stenosis. Left: No aneurysm, occlusion or significant stenosis. Vertebral Arteries: Right: No aneurysm, occlusion or significant stenosis. Left: No aneurysm, occlusion or significant stenosis. Basilar Artery: No aneurysm, occlusion or significant stenosis. CTA Neck W: Visualized aorta: Unremarkable. Visualized pulmonary arteries: Unremarkable. Subclavian arteries: Unremarkable. Common Carotid: Mild calcifications along the course of the vessel, greatest arm at the bulb. Right: No dissection, occlusion or significant stenosis. Left: no dissection, occlusion or significant stenosis. External Carotid: Right: No dissection, occlusion or significant stenosis. Left: No dissection, occlusion or significant stenosis. Internal Carotid: Right: Calcification proximally without significant stenosis. No dissection, occlusion or significant stenosis. Left: Heavy calcification proximally causing approximate 60-70 stenosis. No dissection. Vertebral Artery: Right: No dissection, occlusion or significant stenosis. Left: No dissection, occlusion or significant stenosis. Lung Apices: No acute findings. Emphysematous changes. Bones: No acute abnormality. Anterior fusion hardware at C6-7. Degenerative changes at more superior levels. Poor dentition. Multiple periapical lucencies. Soft Tissues: Normal. IMPRESSION: 1. CTA brain: Normal CTA examination of the [place]. 2. Head CT: No acute abnormality. 3. CTA neck: Heavy calcification at the left common carotid bulb causing approximately 60-70 percent stenosis. No evidence of occlusion or dissection. RADIATION DOSE DELIVERED: 2,127.85mGy.cm Total DLP DATA REPOSITORY: All CT scans at this facility are submitted to the National Radiology Data Registry (NRDR) Dose Index Registry (DIR) with the [employer] ([employer]). RADIATION OPTIMIZATION: All CT scans at this facility use at least one of these dose optimization techniques: automated exposure control; mA and/or kV adjustment per patient size (includes targeted exams where dose is matched to clinical indication); or iterative reconstruction.
[2025-08-01 11:57] LABS: HCT 33.4 % (40.0-50.0); HGB 11.4 g/dL (13.5-17.5); MCH 36.7 pg (27.0-33.0); MCHC 34.1 % (32.0-36.0); MCV 107 fL (80-95); MPV 9.8 fL (8.0-11.0); Platelet Count 238 10^3/uL (130-400); RBC 3.11 10^6/uL (4.36-5.78); RDW 17.2 % (11.8-14.1); RDW-SD 67.2 fL; WBC 9.48 10^3/uL (4.4-10.8)
[2025-08-01 12:09] LABS: Abs Immature Grans 0.00 10^3/uL (0.0-0.06); Immature Grans % 0.0 %; Macrocytosis 2+
[2025-08-01 12:30] LABS: ALT 86 U/L (16-63); AST 417 U/L (15-37); Albumin 2.6 g/dL (3.4-5.0); Alkaline Phosphatase 205 U/L (46-116); Anion Gap 8.0 mmol/L (3-11); BUN 22 mg/dL (7-18); Bilirubin, Total 4.6 mg/dL (0.2-1.0); CO2 26.0 mmol/L (21.0-32.0); Calcium 9.4 mg/dL (8.5-10.1); Chloride 102 mmol/L (98-107); Estimated GFR 74.04 (mL/min/1.73m2); Glucose 115 mg/dL (74-106); Lipase 33 U/L (<78); Magnesium 2.0 mg/dL (1.8-2.4); NT-proBNP 1503 pg/mL (<300); Potassium 4.4 mmol/L (3.5-5.1); Sodium 136 mmol/L (136-145); TSH (W/Ref FT4) 8.23 uIU/mL (0.36-3.74); Total Protein 7.6 g/dL (6.4-8.2)
[2025-08-01 12:31] LABS: Troponin I 421 ng/L (<or=76)
[2025-08-01] MEDS: Normal Saline - Diluent 50 ML VIAL IJ (12:32)
[2025-08-01] MEDS: Omnipaque 350 MG/ML 100 ML BTL IJ (12:33)
[2025-08-01] MEDS: Normal Saline Flush 10 ML SYR IVP ×2 (12:33→20:42)
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
[2025-08-01 13:17] LABS: Bilirubin, Direct 3.5 mg/dL (0.0-0.2); Creatine Kinase 51 U/L (39-308)
[2025-08-01 13:49] VITALS: BP 138/74; PULSE 103; RESP 18; O2SAT 100
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
[2025-08-01 14:30] LABS: Ammonia 12 umol/L (11-32)
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
[2025-08-01 15:28] VITALS: BP 131/75; PULSE 103; RESP 16; TEMP 36.4; O2SAT 99
[2025-08-01 16:06] VITALS: BP 131/75; PULSE 103; RESP 16; TEMP 36.4; O2SAT 99
--- NOTE | 2025-08-01 16:31 | NUR.NOTE ---
Nursing Note: Patient is alert, oriented to self and place only. He is unwilling or unable to participate with admission process. Family, who were present in ED have not come to bedside for review of history or insight to patient symptoms. Patient became annoyed with this screen writer, telling me go away, I'm not doing nothing. He did allow for some of the assessment process such as listening to his lungs and putting on monitoring coordinator, but resisted to be weighed or answer questions. Once in hospital attire, he basically went to sleep.
[2025-08-01 20:04] LABS: Cannabinoids THC Negative (Negative); METHADONE URINE SCREEN Negative (Negative)
[2025-08-01] MEDS: LORazepam 1 MG TAB PO/SL (21:48)
[2025-08-02 06:29] LABS: HCT 32.0 % (40.0-50.0); HGB 11.1 g/dL (13.5-17.5); MCH 37.1 pg (27.0-33.0); MCHC 34.7 % (32.0-36.0); MPV 9.6 fL (8.0-11.0); Platelet Count 243 10^3/uL (130-400); RBC 2.99 10^6/uL (4.36-5.78); RDW 16.4 % (11.8-14.1); RDW-SD 64.2 fL; WBC 9.68 10^3/uL (4.4-10.8)
[2025-08-02 07:01] LABS: INR 1.4 (0.9-1.1); Prothrombin Time 13.9 sec (9.1-11.1)
[2025-08-02 07:03] LABS: Creatine Kinase 54 U/L (39-308)
[2025-08-02 07:05] LABS: ALT 74 U/L (16-63); AST 422 U/L (15-37); Albumin 2.3 g/dL (3.4-5.0); Alkaline Phosphatase 180 U/L (46-116); Anion Gap 9.7 mmol/L (3-11); BUN 20 mg/dL (7-18); Bilirubin, Total 4.8 mg/dL (0.2-1.0); CO2 23.3 mmol/L (21.0-32.0); Calcium 9.2 mg/dL (8.5-10.1); Chloride 103 mmol/L (98-107); Estimated GFR 83.01 (mL/min/1.73m2); Glucose 87 mg/dL (74-106); Magnesium 2.0 mg/dL (1.8-2.4); Potassium 4.1 mmol/L (3.5-5.1); Sodium 136 mmol/L (136-145); Total Protein 6.9 g/dL (6.4-8.2)
[2025-08-02 07:11] LABS: Troponin I 511 ng/L (<or=76)
[2025-08-02 07:55] LABS: MCV 107 fL (80-95)
[2025-08-02 08:20] VITALS: BP 120/64; PULSE 93; RESP 16; TEMP 36.3; O2SAT 99
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
[2025-08-02] MEDS: LORazepam 1 MG TAB PO/SL (10:07)
--- NOTE | 2025-08-02 15:47 | PT.INNT ---
PT Notes Visit Reasons: TIA (cardiology) Patient was approach for PT evaluation . He was not arousable in bed. Nursing reports he was given Ativan in anticipation of testing/imaging this afternoon. Will reattempt on 08/03/2025.
--- NOTE | 2025-08-02 16:41 | CHAPLAIN ---
Ollie was sleeping when I visited. I spoke with Cassandra, who said she is a friend and an ex. I explained my role and offered support.
[2025-08-02] MEDS: QUEtiapine 25 MG TAB PO (16:58)
[2025-08-02] MEDS: OLANZapine 10 MG VIAL 5 MG IM (18:00)
[2025-08-02 19:22] VITALS: BP 132/76; PULSE 114; RESP 16; TEMP 36.6; O2SAT 99
[2025-08-02] MEDS: traZODone 50 MG TAB PO (20:03)
--- NOTE | 2025-08-02 20:08 | PGE_ITS ---
Date of Service Date of service: 08/02/25 Time of Service: 15:00 Assessment and Plan Assessment and plan (1) Acute metabolic encephalopathy: Status: Acute Assessment and plan: 2-3 weeks of worsening mentation with lethargy Labs not suggestive of hepatic encephalopathy, ammonia is within normal limits Chronic hepatic disease evident in LFTs CT/CTA head remarkable only for left common carotid 60-70% stenosis, will not work up acutely Unable to complete MRI and echocardiogram due to patient refusal. He was combative, striking staff. Cancelled those tests. Requested PT evaluation. He is clearly not independent and is not safe ambulating. Challenging assessment as he is agitated and violent with interventions. He does not permit IV placement Will hold benzodiazepines due to excessive somnolence Starting quetiapine and trazodone with prn olanzapine Hopefully he will be calm and cooperative for PT, neuro assessment and placement assessment (2) Elevated troponin: Status: Acute Assessment and plan: Troponin 421->511, will trend Echocardiogram refused EKG unremarkable other than mild tachycardia (3) Carotid stenosis, left: Status: Acute Assessment and plan: Noted as above (4) Alcohol dependence: Status: Acute Assessment and plan: EtOH level below measurable threshold UDS positive for cocaine Used benzodiazepines for agitation today No withdrawal protocol at this time as he does not apparently use any substance daily (5) Lactic acidosis: Status: Acute Assessment and plan: VBG lactic acid elevated 2.8, no evidence of infection, renal disease Possibly due to hepatic failure Will trend (6) History of intracranial hemorrhage: Status: Acute Assessment and plan: - Noted Subjective Subjective Interval history since last seen: Patient is somnolent, slumped in bed. Friend Dianne at bedside. Daughter on the phone. Patient was combative and abusive during MRI and echocardiogram attempt. Exam Narrative Exam Narrative: General: This is a somnolent, chronically-ill appearing man in no acute distress HEENT: Normocephalic, atraumatic CV: RRR Resp: CTAB Abd: soft, NTND MSK: voluntary motion x4 Neuro: Somnolent, rousable Objective Last Vital Signs Temp 36.6 C 08/02/25 19:22 Pulse 114 H 08/02/25 19:22 Resp 16 08/02/25 19:22 BP 132/76 08/02/25 19:22 Pulse Ox 99 08/02/25 19:22 Laboratory Results - last 24 hr 08/02/25 06:06 WBC 9.68 RBC 2.99 L Hgb 11.1 L Hct 32.0 L MCV 107 H MCH 37.1 H MCHC 34.7 RDW 16.4 H Plt Count 243 MPV 9.6 PT 13.9 H INR 1.4 H Sodium 136 Potassium 4.1 Chloride 103 Carbon Dioxide 23.3 Anion Gap 9.7 BUN 20 H Creatinine 1.0 Est GFR (CKD-EPI 2020) 83.01 Glucose 87 Calcium 9.2 Magnesium 2.0 Total Bilirubin 4.8 H AST 422 H ALT 74 H Alkaline Phosphatase 180 H Creatine Kinase 54 Troponin I 511 H* Total Protein 6.9 Albumin 2.3 L PAWSS Have you Been Recently Intoxicated or Drunk Within the Last 30 days?: Unable to Obtain Have you Ever Experienced Previous Episodes of Alcohol Withdrawal?: Unable to Obtain Have you ever Experienced Withdrawal Seizures?: Unable to Obtain Have you ever Experienced Delirium Tremens(DT)s?: Unable to Obtain Have you ever undergone Alcohol Rehabilitation Treatment (i.e, inpt ot outpatient treatment programs)?: Unable to Obtain Have you ever Experienced Blackouts?: Unable to Obtain Have you ever Combined Alcohol with other Downers within the last 90 days?: Unable to Obtain Have you ever Combined Alcohol with any other Substance of Abuse during the last 90 days?: Unable to Obtain Positive Blood Alcohol level on Presentation? [PCS.BAL]: Unable to Obtain Evidence of Increased Autonomic Activity (i.e. HR>120, tremor, sweating, agitation, nausea)?: Unable to Obtain Time Spent with Patient Time Spent with Patient: 35-49 minutes Time was spent: preparing to see the patient(eg.review tests), obtaining and/or reviewing separately otained hiistory, ordering medications,tests, procedures, referring, communicating with other health home care and home health aides teacher, indepentently interpreting results, counseling the patient and care coordination
[2025-08-03] MEDS: QUEtiapine 25 MG TAB PO ×4 (00:18→23:52)
[2025-08-03 06:40] LABS: HCT 30.4 % (40.0-50.0); HGB 10.3 g/dL (13.5-17.5); MCH 36.9 pg (27.0-33.0); MCHC 33.9 % (32.0-36.0); MCV 109 fL (80-95); MPV 9.6 fL (8.0-11.0); Platelet Count 244 10^3/uL (130-400); RBC 2.79 10^6/uL (4.36-5.78); RDW 17.6 % (11.8-14.1); RDW-SD 70.1 fL; WBC 10.11 10^3/uL (4.4-10.8)
[2025-08-03 06:42] LABS: ALT 73 U/L (16-63); AST 519 U/L (15-37); Albumin 2.2 g/dL (3.4-5.0); Alkaline Phosphatase 159 U/L (46-116); Anion Gap 13.4 mmol/L (3-11); BUN 37 mg/dL (7-18); Bilirubin, Total 4.7 mg/dL (0.2-1.0); CO2 20.6 mmol/L (21.0-32.0); Calcium 8.6 mg/dL (8.5-10.1); Chloride 103 mmol/L (98-107); Estimated GFR 43.91 (mL/min/1.73m2); Glucose 85 mg/dL (74-106); Magnesium 2.0 mg/dL (1.8-2.4); Potassium 4.8 mmol/L (3.5-5.1); Sodium 137 mmol/L (136-145); Total Protein 6.6 g/dL (6.4-8.2)
[2025-08-03 07:09] LABS: Troponin I 744 ng/L (<or=76)
[2025-08-03 07:38] VITALS: BP 153/66; PULSE 106; RESP 16; TEMP 36.6; O2SAT 97
[2025-08-03 11:08] LABS: Troponin I 799 ng/L (<or=76)
--- NOTE | 2025-08-03 15:35 | PT.INNT ---
PT Notes Visit Reasons: TIA (cardiology) Spoke with daughter Susanna, son Gallo, and Anna jose Aguilar about patient's status. Patient was independent with all mobility ADL performance without device and was receiving meals on wheels since his CVA about 5 years ago. Daughter Susanna did his grocery shopping ans he has not been able to drive over 5 years now. Patient remains somnolent and unble to follow instructions. He is not appropriate for physical therapy at this time. crew caller PT will be appriased of patient's condition. Will attmept another evalaution once levle of alertness improves. Family interview was done from 3:20 to 3:33. No charge ws billed for this session.
--- NOTE | 2025-08-03 16:12 | PDOC.ANES ---
Date of service: 08/03/25 Time of Service: 16:12 Anesthesia Note Report Anesthesia Note: Consulted by Hospitalist in regards to placement of venous access by ANES. Midline preferred or PIV. At bedside discussed with family. Noted good peripheral veins in right forearm. US exam of right upper extremity yielded significant venous options for midline. Decided to place 20G PIV. Good result, bandaged and secured. Discussed with hospitalist. Floor RN Roge to wrap PIV.
[2025-08-03] MEDS: Normal Saline 500 ML 1000 ML IV (16:18)
--- NOTE | 2025-08-03 17:06 | STREC_ITS ---
Date of service: 08/03/25 Time of Service: 17:10 Speech Therapy Recommendations Report ST Recommendations: Reason for non-treatment note: Consult received and chart reviewed. Per discussion with hospitalist, patient has been combative earlier, unable to tolerate imaging/workup thus far, and is now somnolent and not able to maintain alertness to participate in PT/JAVASCRIPT FRONT END DEVELOPER evaluations. Hospitalist suspects undocumented swallowing difficulty may be partially contributing to overall decreasing functional status, but requesting that JAVASCRIPT FRONT END DEVELOPER check back in with care team on Wednesday to see if he is appropriate for JAVASCRIPT FRONT END DEVELOPER evaluation at that time. JAVASCRIPT FRONT END DEVELOPER will attempt to evaluate swallow function next week once alertness improves/as indicated.
--- NOTE | 2025-08-03 17:06 | PDOC.STREC ---
Date of service: 08/03/25 Time of Service: 17:10 Speech Therapy Recommendations Report ST Recommendations: Reason for non-treatment note: Consult received and chart reviewed. Per discussion with hospitalist, patient has been combative earlier, unable to tolerate imaging/workup thus far, and is now somnolent and not able to maintain alertness to participate in PT/NUTS AND BOLTS ASSEMBLER evaluations. Hospitalist suspects undocumented swallowing difficulty may be partially contributing to overall decreasing functional status, but requesting that NUTS AND BOLTS ASSEMBLER check back in with care team on Wednesday to see if he is appropriate for NUTS AND BOLTS ASSEMBLER evaluation at that time. NUTS AND BOLTS ASSEMBLER will attempt to evaluate swallow function next week once alertness improves/as indicated.
--- NOTE | 2025-08-03 17:15 | PGE_ITS ---
Date of Service Date of service: 08/03/25 Time of Service: 08:00 Assessment and Plan Assessment and plan (1) Acute metabolic encephalopathy: Status: Acute Assessment and plan: 2-3 weeks of worsening mentation with lethargy Labs not suggestive of hepatic encephalopathy, ammonia is within normal limits Chronic hepatic disease evident in LFTs CT/CTA head remarkable only for left common carotid 60-70% stenosis, will not work up acutely Unable to complete MRI and echocardiogram due to patient refusal. He was combative, striking staff. Cancelled those tests. Requested PT evaluation. He is clearly not independent and is not safe ambulating. Challenging assessment as he is agitated and violent with interventions. He does not permit IV placement Will hold benzodiazepines due to excessive somnolence Starting quetiapine and trazodone with prn olanzapine Hopefully he will be calm and cooperative for PT, neuro assessment and placement assessment Sept 12 Patient remains altered and unable to communicate. He is not swallowing without effort and is unable to hold a container to serve himself. No behavior problems today after starting seroquel and trazodone. No zyprexa needed nor given. Lengthy discussion at bedside with patient's son, daughter and daughter in law, with ex-/partner on the phone. Until 3 weeks ago, he had been drinking heavily, daily. 3 weeks ago he became to weak to get up for supply. Until 3 weeks ago, family reports he had been independent, coherent, and at his normal level of function. However, family reports that patient has not eaten much for a long time due to trouble swallowing. Will chew to get the flavor and spit it out. Family reports that when his friends visit he uses drugs with them. Family reports that [place] where peaceful sleep is unlikely. Discussed likelyhood of longstanding dementia, malnutrition, sleep deficit, dehydration. Line placement has been unsuccessful. Requested help from anesthesia, who were able to place a 20g PIV and he has been started on IV fluids. Plan is to maintain hydration and work to assess mentation. Wednesday MRI and echo, then teleneurology and speech therapy. (2) Elevated troponin: Status: Acute Assessment and plan: Troponin 421->511, will trend Echocardiogram refused EKG unremarkable other than mild tachycardia (3) Carotid stenosis, left: Status: Acute Assessment and plan: Noted as above (4) Alcohol dependence: Status: Acute Assessment and plan: EtOH level below measurable threshold UDS positive for cocaine Used benzodiazepines for agitation today No withdrawal protocol at this time as he does not apparently use any substance daily (5) Lactic acidosis: Status: Acute Assessment and plan: VBG lactic acid elevated 2.8, no evidence of infection, renal disease Possibly due to hepatic failure Will trend (6) History of intracranial hemorrhage: Status: Acute Assessment and plan: - Noted Subjective Subjective Interval history since last seen: Patient is somnolent, slumped in bed. In the afternoon he was interacting with his family, smiling. Poor verbal communication but some recognizable speech. Exam Narrative Exam Narrative: General: This is a somnolent, chronically-ill appearing man in no acute distress HEENT: Normocephalic, atraumatic CV: RRR Resp: CTAB Abd: soft, NTND MSK: voluntary motion x4 Neuro: Somnolent, rousable. Some response to interaction, smiles when his family members talk to him Objective Last Vital Signs Temp 36.6 C 08/03/25 07:38 Pulse 106 H 08/03/25 07:38 Resp 16 08/03/25 07:38 BP 153/66 H 08/03/25 07:38 Pulse Ox 97 08/03/25 07:38 Laboratory Results - last 24 hr 08/03/25 08/03/25 06:12 10:32 WBC 10.11 RBC 2.79 L Hgb 10.3 L Hct 30.4 L MCV 109 H MCH 36.9 H MCHC 33.9 RDW 17.6 H Plt Count 244 MPV 9.6 VBG Lactate 2.3 H* Sodium 137 Potassium 4.8 Chloride 103 Carbon Dioxide 20.6 L Anion Gap 13.4 H BUN 37 H Creatinine 1.7 H Est GFR (CKD-EPI 2020) 43.91 Glucose 85 Calcium 8.6 Magnesium 2.0 Total Bilirubin 4.7 H AST 519 H ALT 73 H Alkaline Phosphatase 159 H Troponin I 744 H* 799 H* Total Protein 6.6 Albumin 2.2 L PAWSS Have you Been Recently Intoxicated or Drunk Within the Last 30 days?: Unable to Obtain Have you Ever Experienced Previous Episodes of Alcohol Withdrawal?: Unable to Obtain Have you ever Experienced Withdrawal Seizures?: Unable to Obtain Have you ever Experienced Delirium Tremens(DT)s?: Unable to Obtain Have you ever undergone Alcohol Rehabilitation Treatment (i.e, inpt ot outpatient treatment programs)?: Unable to Obtain Have you ever Experienced Blackouts?: Unable to Obtain Have you ever Combined Alcohol with other Downers within the last 90 days?: Unable to Obtain Have you ever Combined Alcohol with any other Substance of Abuse during the last 90 days?: Unable to Obtain Positive Blood Alcohol level on Presentation? [PCS.BAL]: Unable to Obtain Evidence of Increased Autonomic Activity (i.e. HR>120, tremor, sweating, agitation, nausea)?: Unable to Obtain Time Spent with Patient Time Spent with Patient: 35-49 minutes Time was spent: preparing to see the patient(eg.review tests), obtaining and/or reviewing separately otained hiistory, ordering medications,tests, procedures, referring, communicating with other health care information associate, indepentently interpreting results, counseling the patient and care coordination
--- NOTE | 2025-08-03 17:15 | PDOC.CMPRO ---
Date of service: 08/03/25 Time of Service: 17:15 Care Management Progress Note Progress Note Text Progress Note Text: CM has met with Ollie and his family a few times today. Ollie is not making a lot of progress, but this afternoon an IV was able to be inserted and Ollie now has IVF running and he will also receive thiamine supplementation through his IV. Ollie does appear to understand some small commands and questions, but is not verbal. His daughter and son were present for most of the day and were able to have a meeting with Ollie's provider. Family stated to CM that they do not want him to go to a residential, and that Ollie's ex has offered to take him in and care for him at her home. MRI and echo will be attempted again on Monday 08/06. Discharge Potential Discharge Needs: Imaging/labs (MRI and echo) and PCP F/U Appt Anticipated Barriers to Discharge: Medical Status Patient/Family Education Needs: Review discharge instructions, discuss Ask Me Three Transportation: Other (dependent on progress) Plan: Ollie's discharge plan is still not determined. Much depends on his progress. If he goes to his ex-'s home, he will need new HH services, likely RN, PT/OT and MACHINE TOOL OPERATOR. CM plans to talk with Ollie's daughter on Wednesday and get permission for CO[facility] referral for senior care Medicaid application. He will also need to f/u with his PCP. CM will continue to follow. Social Determinants of Health Screening Will the Patient Participate in the Screening?: Declined to provide Do you worry about having a steady place to live?: choose not to answer In the past 12 months, have you had to go without electric, gas, oil or water in your home?: choose not to answer Has lack of transportation kept you from medical appointments or from doing things needed for daily living?: choose not to answer Has anyone in your life made you feel unsafe or unsupported?: choose not to answer Do you speak a language other than [place] at home?: No Comments: Pt is refusing to participate in admission process. He reports I'm not doing anything when asked to step on standing scale Health Related Social Needs Health related social needs: material hardship(utilities) (Z59.12) Health related social needs details: unable to assess
[2025-08-03] MEDS: DEXTROSE 5%-0.9% SALINE 1,000 ML 125 ML IV (17:17)
[2025-08-03] MEDS: Lidocaine 5% Patch 1 PATCH TP (18:16)
[2025-08-03] MEDS: THIAMINE 500 MG in Normal Saline 100 ML 200 MG IVPB (18:17)
[2025-08-03 19:33] VITALS: BP 168/89; PULSE 102; RESP 16; TEMP 37.3; O2SAT 97
[2025-08-03] MEDS: traZODone 50 MG TAB PO (19:47)
[2025-08-03] MEDS: Normal Saline Flush 10 ML SYR IVP (21:37)
[2025-08-03 23:52] VITALS: BP 155/69
[2025-08-04] MEDS: DEXTROSE 5%-0.9% SALINE 1,000 ML 125 ML IV ×3 (00:48→17:33)
[2025-08-04] MEDS: THIAMINE 500 MG in Normal Saline 100 ML 200 MG IVPB ×3 (02:11→17:54)
[2025-08-04] MEDS: Patch Removal 1 EACH TP (05:50)
[2025-08-04 06:50] LABS: HCT 29.6 % (40.0-50.0); HGB 10.0 g/dL (13.5-17.5); MCH 36.2 pg (27.0-33.0); MCHC 33.8 % (32.0-36.0); MCV 107 fL (80-95); MPV 9.9 fL (8.0-11.0); Platelet Count 237 10^3/uL (130-400); RBC 2.76 10^6/uL (4.36-5.78); RDW 17.7 % (11.8-14.1); RDW-SD 69.0 fL
[2025-08-04 07:04] LABS: WBC 10.00 10^3/uL (4.4-10.8)
[2025-08-04 07:16] LABS: ALT 86 U/L (16-63); AST 598 U/L (15-37); Albumin 2.1 g/dL (3.4-5.0); Alkaline Phosphatase 141 U/L (46-116); Anion Gap 9.2 mmol/L (3-11); BUN 34 mg/dL (7-18); Bilirubin, Total 4.6 mg/dL (0.2-1.0); CO2 21.8 mmol/L (21.0-32.0); Calcium 8.2 mg/dL (8.5-10.1); Chloride 108 mmol/L (98-107); Estimated GFR 55.43 (mL/min/1.73m2); Glucose 169 mg/dL (74-106); Magnesium 2.2 mg/dL (1.8-2.4); Potassium 3.9 mmol/L (3.5-5.1); Sodium 139 mmol/L (136-145); Total Protein 6.5 g/dL (6.4-8.2)
[2025-08-04 08:27] VITALS: BP 166/74; PULSE 99; RESP 16; TEMP 36.5; O2SAT 99
--- NOTE | 2025-08-04 14:36 | PT.INNT ---
PT Notes Visit Reasons: TIA (cardiology) Patient remains somnolent and unble to follow instructions. He is not appropriate for physical therapy at this time. Will attmept another evalaution once levle of alertness improves. Will attempt initial evaluation 08/05/2025 .
[2025-08-04 15:16] LABS: Ammonia 62 umol/L (11-32)
--- NOTE | 2025-08-04 16:30 | RT.EKG_ITS ---
APPROVED REPORT Exam: Resting ECG Reason for Exam: status trop leak Patient Location: I HR:101 bpm ECG Measurements Heart Rate 101 AXIS OR 144 P 75 QRSd 88 QRS -26 QT 369 T 64 QTc 479 Conclusion Sinus tachycardia...rate> 99 Probable left atrial enlargement...P >50mS, <-0.10mV V1 Borderline left axis deviation...QRS axis (-15,-29) Anteroseptal infarct, age indeterminate...Q >35mS, T neg, V1-V2
[2025-08-04 16:37] LABS: Troponin I 1016 ng/L (<or=76)
[2025-08-04] MEDS: Lidocaine 5% Patch 1 PATCH TP (17:24)
[2025-08-04] MEDS: QUEtiapine 25 MG TAB PO (17:25)
[2025-08-04] MEDS: Acetaminophen 325 MG TAB 650 MG PO (18:44)
--- NOTE | 2025-08-04 19:12 | PGE_ITS ---
Date of Service Date of service: 08/04/25 Time of Service: 08:00 Assessment and Plan Assessment and plan (1) Acute metabolic encephalopathy: Status: Acute Assessment and plan: 2-3 weeks of worsening mentation with lethargy Labs not suggestive of hepatic encephalopathy, ammonia is within normal limits Chronic hepatic disease evident in LFTs CT/CTA head remarkable only for left common carotid 60-70% stenosis, will not work up acutely Unable to complete MRI and echocardiogram due to patient refusal. He was combative, striking staff. Cancelled those tests. Requested PT evaluation. He is clearly not independent and is not safe ambulating. Challenging assessment as he is agitated and violent with interventions. He does not permit IV placement Will hold benzodiazepines due to excessive somnolence Starting quetiapine and trazodone with prn olanzapine Hopefully he will be calm and cooperative for PT, neuro assessment and placement assessment Aug 03 Patient remains altered and unable to communicate. He is not swallowing without effort and is unable to hold a container to serve himself. No behavior problems today after starting seroquel and trazodone. No zyprexa needed nor given. Lengthy discussion at bedside with patient's son, daughter and daughter in law, with ex-/partner on the phone. Until 3 weeks ago, he had been drinking heavily, daily. 3 weeks ago he became to weak to get up for supply. Until 3 weeks ago, family reports he had been independent, coherent, and at his normal level of function. However, family reports that patient has not eaten much for a long time due to trouble swallowing. Will chew to get the flavor and spit it out. Family reports that when his friends visit he uses drugs with them. Family reports that [place] neighborhood where peaceful sleep is unlikely. Discussed likelyhood of longstanding dementia, malnutrition, sleep deficit, dehydration. Line placement has been unsuccessful. Requested help from anesthesia, who were able to place a 20g PIV and he has been started on IV fluids. Plan is to maintain hydration and work to assess mentation. Wednesday MRI and echo, then teleneurology and speech therapy. Aug 04 - Ammonia level is elevated, but will defer lactulose until he has had some nutrition - Troponin still trending up. EKG showing low voltage but otherwise NSR. - Late afternoon patient able to speak fairly clearly to his son and he was laughing - Started spoonfuls of ice cream. Continue D5NS and daily labs. IV is intact. (2) Elevated troponin: Status: Acute Assessment and plan: Troponin 421->511, will trend Echocardiogram refused EKG unremarkable other than mild tachycardia (3) Carotid stenosis, left: Status: Acute Assessment and plan: Noted as above (4) Alcohol dependence: Status: Acute Assessment and plan: EtOH level below measurable threshold UDS positive for cocaine Used benzodiazepines for agitation today No withdrawal protocol at this time as he does not apparently use any substance daily (5) Lactic acidosis: Status: Acute Assessment and plan: VBG lactic acid elevated 2.8, no evidence of infection, renal disease Possibly due to hepatic failure Will trend (6) History of intracranial hemorrhage: Status: Acute Assessment and plan: - Noted Subjective Subjective Interval history since last seen: Mr. Burnett was somnolent and barely rouseable to sternal rub in the morning. With family present he became more alert and interactive. Code discussion: patient clearly said Hell no! when asked if he wanted CPR or to breathe through a tube. Discussed with 4 family members at bedside and his wishes are supported. Exam Narrative Exam Narrative: General: This is a somnolent, chronically-ill appearing man in no acute distress HEENT: Normocephalic, atraumatic CV: RRR Resp: CTAB Abd: soft, NTND MSK: voluntary motion x4 Neuro: Somnolent, rousable. Some response to interaction, smiles when his family members talk to him Objective Last Vital Signs Temp 36.5 C 08/04/25 08:27 Pulse 99 H 08/04/25 08:27 Resp 16 08/04/25 08:27 BP 166/74 H 08/04/25 08:27 Pulse Ox 99 08/04/25 08:27 Laboratory Results - last 24 hr 08/04/25 08/04/25 08/04/25 06:22 14:55 16:00 WBC 10.00 RBC 2.76 L Hgb 10.0 L Hct 29.6 L MCV 107 H MCH 36.2 H MCHC 33.8 RDW 17.7 H Plt Count 237 MPV 9.9 Sodium 139 Potassium 3.9 Chloride 108 H Carbon Dioxide 21.8 Anion Gap 9.2 BUN 34 H Creatinine 1.4 H Est GFR (CKD-EPI 2020) 55.43 Glucose 169 H Calcium 8.2 L Magnesium 2.2 Total Bilirubin 4.6 H AST 598 H ALT 86 H Alkaline Phosphatase 141 H Ammonia 62 H Troponin I 1016 H* Cancelled Total Protein 6.5 Albumin 2.1 L Add-On Test Request 08/04/25 Unknown WBC RBC Hgb Hct MCV MCH MCHC RDW Plt Count MPV Sodium Potassium Chloride Carbon Dioxide Anion Gap BUN Creatinine Est GFR (CKD-EPI 2020) Glucose Calcium Magnesium Total Bilirubin AST ALT Alkaline Phosphatase Ammonia Troponin I Total Protein Albumin Add-On Test Request done PAWSS Have you Been Recently Intoxicated or Drunk Within the Last 30 days?: Unable to Obtain Have you Ever Experienced Previous Episodes of Alcohol Withdrawal?: Unable to Obtain Have you ever Experienced Withdrawal Seizures?: Unable to Obtain Have you ever Experienced Delirium Tremens(DT)s?: Unable to Obtain Have you ever undergone Alcohol Rehabilitation Treatment (i.e, inpt ot outpatient treatment programs)?: Unable to Obtain Have you ever Experienced Blackouts?: Unable to Obtain Have you ever Combined Alcohol with other Downers within the last 90 days?: Unable to Obtain Have you ever Combined Alcohol with any other Substance of Abuse during the last 90 days?: Unable to Obtain Positive Blood Alcohol level on Presentation? [PCS.BAL]: Unable to Obtain Evidence of Increased Autonomic Activity (i.e. HR>120, tremor, sweating, agitation, nausea)?: Unable to Obtain Time Spent with Patient Time Spent with Patient: 35-49 minutes Time was spent: preparing to see the patient(eg.review tests), obtaining and/or reviewing separately otained hiistory, ordering medications,tests, procedures, referring, communicating with other health urgent care physician, indepentently interpreting results, counseling the patient and care coordination
[2025-08-04] MEDS: traZODone 50 MG TAB PO (19:45)
[2025-08-04 20:09] VITALS: BP 145/69; PULSE 100; RESP 18; TEMP 37.3; O2SAT 97
[2025-08-05] MEDS: DEXTROSE 5%-0.9% SALINE 1,000 ML 125 ML IV ×3 (01:09→18:36)
[2025-08-05] MEDS: THIAMINE 500 MG in Normal Saline 100 ML 200 MG IVPB ×3 (01:10→17:26)
--- NOTE | 2025-08-05 09:21 | NUR.NOTE ---
Access chart to reconcile EKG orders with EKG's in [facility]. Duplicate order cancelled. Nursing Note:
[2025-08-05] MEDS: QUEtiapine 25 MG TAB PO ×2 (09:47→15:18)
[2025-08-05] MEDS: Normal Saline Flush 10 ML SYR IVP (09:48)
[2025-08-05] MEDS: Patch Removal 1 EACH TP (09:57)
--- NOTE | 2025-08-05 14:57 | PT.INNT ---
PT Notes Visit Reasons: TIA (cardiology) Patient remains somnolent and unble to follow instructions. He is not appropriate for physical therapy at this time. Will attmept another evalaution once levle of alertness improves. Will attempt initial evaluation 08/06/2025 .
[2025-08-05] MEDS: Acetaminophen 325 MG TAB 650 MG PO (15:18)
[2025-08-05] MEDS: Lidocaine 5% Patch 1 PATCH TP (17:27)
[2025-08-05 20:23] VITALS: BP 150/76; PULSE 99; RESP 18; TEMP 36.9; O2SAT 100
--- NOTE | 2025-08-05 23:00 | PGE_ITS ---
Date of Service Date of service: 08/05/25 Time of Service: 08:00 Assessment and Plan Assessment and plan (1) Acute metabolic encephalopathy: Status: Acute Assessment and plan: 2-3 weeks of worsening mentation with lethargy Labs not suggestive of hepatic encephalopathy, ammonia is within normal limits Chronic hepatic disease evident in LFTs CT/CTA head remarkable only for left common carotid 60-70% stenosis, will not work up acutely Unable to complete MRI and echocardiogram due to patient refusal. He was combative, striking staff. Cancelled those tests. Requested PT evaluation. He is clearly not independent and is not safe ambulating. Challenging assessment as he is agitated and violent with interventions. He does not permit IV placement Will hold benzodiazepines due to excessive somnolence Starting quetiapine and trazodone with prn olanzapine Hopefully he will be calm and cooperative for PT, neuro assessment and placement assessment Aug 03 Patient remains altered and unable to communicate. He is not swallowing without effort and is unable to hold a container to serve himself. No behavior problems today after starting seroquel and trazodone. No zyprexa needed nor given. Lengthy discussion at bedside with patient's son, daughter and daughter in law, with ex-/partner on the phone. Until 3 weeks ago, he had been drinking heavily, daily. 3 weeks ago he became to weak to get up for supply. Until 3 weeks ago, family reports he had been independent, coherent, and at his normal level of function. However, family reports that patient has not eaten much for a long time due to trouble swallowing. Will chew to get the flavor and spit it out. Family reports that when his friends visit he uses drugs with them. Family reports that he lives in a dangerous neighborhood where peaceful sleep is unlikely. Discussed likelyhood of longstanding dementia, malnutrition, sleep deficit, dehydration. Line placement has been unsuccessful. Requested help from anesthesia, who were able to place a 20g PIV and he has been started on IV fluids. Plan is to maintain hydration and work to assess mentation. Wednesday MRI and echo, then teleneurology and speech therapy. Aug 04 - Ammonia level is elevated, but will defer lactulose until he has had some nutrition - Troponin still trending up. EKG showing low voltage but otherwise NSR. - Late afternoon patient able to speak fairly clearly to his son and he was laughing - Started spoonfuls of ice cream. Continue D5NS and daily labs. IV is intact. Aug 05 - Improving mentation - Continue IV hydration, PO intake as tolerated - Awaiting MRI and echo Wednesday, need teleneuro followup - Will repeat labs for after MRI and echo Wednesday to minimize morning disruptions (2) Elevated troponin: Status: Acute Assessment and plan: Troponin 421->511, will trend Echocardiogram refused EKG unremarkable other than mild tachycardia (3) Carotid stenosis, left: Status: Acute Assessment and plan: Noted as above (4) Alcohol dependence: Status: Acute Assessment and plan: EtOH level below measurable threshold UDS positive for cocaine No withdrawal protocol at this time as he does not apparently use any substance daily Per family report, last drink likely 3 weeks prior to arrival (5) Lactic acidosis: Status: Acute Assessment and plan: VBG lactic acid elevated 2.8, no evidence of infection, renal disease Possibly due to hepatic failure Will trend (6) History of intracranial hemorrhage: Status: Acute Assessment and plan: - Noted Subjective Subjective Interval history since last seen: Mr Burnett is better today, more responsive and his speech is clearer. Seems better rested. Eating spoonfuls of ice cream, needs assistance, too weak to lift spoon. Family at bedside throughout the day. Exam Narrative Exam Narrative: General: This is a chronically-ill appearing man in no acute distress HEENT: Normocephalic, atraumatic CV: RRR Resp: CTAB Abd: soft, NTND MSK: voluntary motion x4 Neuro: Awake, alert to self. Speech is difficult to understand with some exceptions that are clear. Objective Last Vital Signs Temp 36.9 C 08/05/25 20:23 Pulse 99 H 08/05/25 20:23 Resp 18 08/05/25 20:23 BP 150/76 H 08/05/25 20:23 Pulse Ox 100 08/05/25 20:23 PAWSS Have you Been Recently Intoxicated or Drunk Within the Last 30 days?: Unable to Obtain Have you Ever Experienced Previous Episodes of Alcohol Withdrawal?: Unable to Obtain Have you ever Experienced Withdrawal Seizures?: Unable to Obtain Have you ever Experienced Delirium Tremens(DT)s?: Unable to Obtain Have you ever undergone Alcohol Rehabilitation Treatment (i.e, inpt ot outpatient treatment programs)?: Unable to Obtain Have you ever Experienced Blackouts?: Unable to Obtain Have you ever Combined Alcohol with other Downers within the last 90 days?: Unable to Obtain Have you ever Combined Alcohol with any other Substance of Abuse during the last 90 days?: Unable to Obtain Positive Blood Alcohol level on Presentation? [PCS.BAL]: Unable to Obtain Evidence of Increased Autonomic Activity (i.e. HR>120, tremor, sweating, agitation, nausea)?: Unable to Obtain Time Spent with Patient Time Spent with Patient: 25-34 minutes Time was spent: preparing to see the patient(eg.review tests), obtaining and/or reviewing separately otained hiistory, ordering medications,tests, procedures, referring, communicating with other health respiratory care assistant, indepentently interpreting results, counseling the patient and care coordination
[2025-08-06] MEDS: THIAMINE 500 MG in Normal Saline 100 ML 200 MG IVPB ×2 (01:09→10:16)
[2025-08-06] MEDS: DEXTROSE 5%-0.9% SALINE 1,000 ML 125 ML IV ×2 (01:58→12:13)
--- NOTE | 2025-08-06 07:30 | DI.MRI_ITS ---
Exam(s) MR BRAIN WO EXAM: MR BRAIN WO CLINICAL HISTORY: CVA TECHNIQUE: Multiplanar multisequence MRI of the brain was performed. COMPARISON: CT CT HEAD CERVICAL SPINE WO from 07/28/[address] BRAIN NECK CTA from 08/01/2025 FINDINGS: The examination is limited due to patient motion artifact. VENTRICLES AND EXTRA AXIAL SPACES: Normal in size and morphology for the patient's age. MIDLINE SHIFT: None. CEREBRAL PARENCHYMA: There are several areas of restricted diffusion present. Areas of restricted diffusion are seen in the left cerebral hemisphere and both the left and right cerebrum. The largest area is seen in the right occipital lobe. However there is involvement seen in the left aspect of the corpus callosum, the right frontal lobe and the parietal lobes bilaterally. The findings are consistent with multiple infarcts. There are multiple areas of hyperintense signal seen in the white matter on the FLAIR and T2 weighted images consistent with chronic microvascular ischemic disease. There is a linear tract in the left frontal lobe heading to the anterior horn of the left lateral ventricle which may represent a prior shunt tube. There is a corresponding calvarial chapo hole present. HEMORRHAGE: None. BRAINSTEM/CEREBELLUM: Normal. CALVARIUM: Normal. VISUALIZED PARANASAL SINUSES/MASTOIDS:Clear. [place]: Normal flow void. PITUITARY GLAND: Unremarkable. OTHER FINDINGS: None. IMPRESSION: 1. Bilateral areas of restricted diffusion consistent with multifocal infarcts. This may be secondary to multiple emboli. 2. Chronic microvascular ischemic disease. DATA REPOSITORY:
[2025-08-06 07:58] VITALS: BP 155/75; PULSE 112; RESP 17; TEMP 37.2; O2SAT 93
[2025-08-06 08:15] LABS: INR 1.6 (0.9-1.1); Prothrombin Time 15.5 sec (9.1-11.1)
[2025-08-06 08:29] LABS: ALT 79 U/L (16-63); AST 504 U/L (15-37); Albumin 1.8 g/dL (3.4-5.0); Alkaline Phosphatase 138 U/L (46-116); Anion Gap 11.2 mmol/L (3-11); BUN 16 mg/dL (7-18); Bilirubin, Total 6.7 mg/dL (0.2-1.0); CO2 20.8 mmol/L (21.0-32.0); Calcium 8.5 mg/dL (8.5-10.1); Chloride 114 mmol/L (98-107); Estimated GFR 94.19 (mL/min/1.73m2); Glucose 142 mg/dL (74-106); Potassium 3.5 mmol/L (3.5-5.1); Sodium 146 mmol/L (136-145); Total Protein 6.6 g/dL (6.4-8.2)
[2025-08-06] MEDS: QUEtiapine 25 MG TAB PO ×2 (09:08→17:53)
[2025-08-06] MEDS: Patch Removal 1 EACH TP (09:12)
--- NOTE | 2025-08-06 11:50 | PDOC.CMPRO ---
Date of service: 08/06/25 Time of Service: 11:50 Care Management Progress Note Progress Note Text Progress Note Text: Ollie was sitting up in the bed when CM met with him today. Daughter, Susanna and friend, Cassandra were both present. By all reports, Ollie is making some very small improvements. He is more responsive, and was noted to give a chuckle this morning in response to something said in conversation. Ollie was able to have his brain MRI and echocardiogram today. Provider note states that MRI was consistent with an embolic stroke, and echo was without focal findings. He also had an PRODUCTION LINE MANAGER consult today. Teleneuro f/u has been ordered as well. He has yet to be able to participate in PT. CM sent a referral to the [place] [facility] this morning, with permission, to help with applying to [facility]. Susanna is aware she will be contacted to help with financials and such. Palliative consult was also ordered. When CM spoke with Susanna and Cassandra this morning, we discussed the possibility of Ollie being discharged to Cassandra's house. She feels that she has the room and ability to care for him. Susanna, when Cassandra left the room, stated that she and her brother are on board with this plan, but want to speak to Cassandra privately regarding some personal issues, before the decision is finalized. CM encouraged Susanna to do so sooner rather than later. Discharge Potential Discharge Needs: PCP F/U Appt Anticipated Barriers to Discharge: Medical Status Patient/Family Education Needs: Review discharge instructions, discuss Ask Me Three Transportation: Other (dependent on progress) Plan: Ollie's discharge plan is still a bit uncertain, but he will likely discharge to [facility] with the supports of family and HH. CM will continue to follow closely. Social Determinants of Health Screening Will the Patient Participate in the Screening?: Declined to provide Do you worry about having a steady place to live?: choose not to answer In the past 12 months, have you had to go without electric, gas, oil or water in your home?: choose not to answer Has lack of transportation kept you from medical appointments or from doing things needed for daily living?: choose not to answer Has anyone in your life made you feel unsafe or unsupported?: choose not to answer Do you speak a language other than [place] at home?: No Comments: Pt is refusing to participate in admission process. He reports I'm not doing anything when asked to step on standing scale Health Related Social Needs Health related social needs: material hardship(utilities) (Z59.12) Health related social needs details: unable to assess
--- NOTE | 2025-08-06 12:38 | NUR.NOTE ---
Nursing Note: Documentation by Stormy Umanzor, RACHEL student reviewed
[2025-08-06 12:39] LABS: Abs Immature Grans 0.04 10^3/uL (0.0-0.06); HCT 32.2 % (40.0-50.0); HGB 10.8 g/dL (13.5-17.5); INR 1.6 (0.9-1.1); Immature Grans % 0.2 %; MCH 37.6 pg (27.0-33.0); MCHC 33.5 % (32.0-36.0); MPV 9.9 fL (8.0-11.0); Platelet Count 211 10^3/uL (130-400); Prothrombin Time 15.9 sec (9.1-11.1); RBC 2.87 10^6/uL (4.36-5.78); RDW 18.6 % (11.8-14.1); RDW-SD 76.7 fL; WBC 16.71 10^3/uL (4.4-10.8)
[2025-08-06 12:42] LABS: MCV 112 fL (80-95)
[2025-08-06 12:47] LABS: Ammonia 39 umol/L (11-32)
[2025-08-06] MEDS: LORazepam 20 MG/10 ML VIAL IVP (12:57)
[2025-08-06 12:58] LABS: Macrocytosis 2+
[2025-08-06 13:06] LABS: ALT 76 U/L (16-63); AST 477 U/L (15-37); Albumin 1.7 g/dL (3.4-5.0); Alkaline Phosphatase 127 U/L (46-116); Anion Gap 10.8 mmol/L (3-11); BUN 16 mg/dL (7-18); Bilirubin, Total 6.1 mg/dL (0.2-1.0); CO2 20.2 mmol/L (21.0-32.0); Calcium 8.4 mg/dL (8.5-10.1); Chloride 115 mmol/L (98-107); Estimated GFR 97.61 (mL/min/1.73m2); Glucose 125 mg/dL (74-106); Potassium 3.7 mmol/L (3.5-5.1); Sodium 146 mmol/L (136-145); Total Protein 6.2 g/dL (6.4-8.2)
--- NOTE | 2025-08-06 14:39 | W.SPSTE ---
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 Head CT showed no acute findings. MRI completed today (after this evaluation) revealed 1. Bilateral areas of restricted diffusion consistent with multifocal infarcts. This may be secondary to multiple emboli. 2. Chronic microvascular ischemic disease. Ollie has been taking very limited PO since admission in the setting of confusion/agitation/somnolence. He became more alert over the weekend and has been doing small sips of water and a bit of ice cream. MI[employer]OSOFT DYNAMICS MANAGER ARCHITECT IMPRESSIONS & RECOMMENDATIONS: Today's evaluation somewhat limited due to competing medical needs (labs/leaving for MRI). Ollie was more alert today. While his eyes remained closed for majority of session he was able to open his eyes when prompted and communicate with this clinician with short phrases. Dysarthria is severe and intelligibility was approximately 70%, though Ollie used frequent humor/sarcasm and indicated orientation to self/family. Swallow initiation is delayed and overall his swallow is weak but he was able to tolerate small amounts of puree and thin liquids. With final sip of thin liquid, significant productive cough occurred suspicious for aspiration, though strong cough noted. Anticipate distraction/high volume of people in room (simultaneously receiving Ativan/preparing to leave for MRI) may have contributed as well. Overall he is a very high risk for developing aspiration pneumonia, though risk can be mitigated with precautions and diet modifications below. Will monitor indications for MBSS. Please use low threshold to discontinue diet/place patient NPO if demonstrating frequent s/s aspiration. FURTHER MI[employer]OS[employer]FT DYNAMICS MANAGER ARCHITECT SERVICES: Patient to be followed while on unit. Diet Recommendations: SOLIDS- L4 Puree solids LIQUIDS - L0 Thin Liquids - SMALL SINGLE SIP, PINCH STRAW MEDICATIONS - crushed in puree SUPERVISION - 1:1 assist STRATEGIES: Low threshold to discontinue PO/NPO if signs of aspiration appreciated such as wet cough/wet voice [place] upright 90 degrees for all PO and at least 30 min after Oral care before/after meals Small/slow bites and sips SUBJECTIVE: Patient received awake & agreeable to evaluation Pain Reported? N/A Baseline Swallow Function: Per MD notes family reported he has not eaten much for a long time due to trouble swallowing and would chew to get flavor and then spit food out. When this clinician asked family about this today, they denied baseline dysphagia and said he was eating donuts prior to admission without difficulty. PO Trials Assessed: IDDSI 0 Thin Liquids - via straw with pinch IDDSI 4 Puree Solid - mashed potatoes with gravy, pureed meat Oral Mechanism Examination: Dentition is sparse/poor. Oral mucosa is dry. Cranial Nerve Assessment: Unable to assess Oral Phase Findings: Required verbal prompts to open/close mouth, suck straw, swallow, etc Difficulty with bolus manipulation Difficulty with a-p transport Only min residue, no pocketing Pharyngeal Phase Findings: Delayed swallow initiation Reduced hyolaryngeal elevation/excursion Significant wet cough after last sip of thin liquid, not previously appreciated with prior trials ASSESSMENT: Further MI[employer]OS[employer] DYNAM[employer] MANAGER ARCHITECT Services indicated. Patient to be followed while on unit. Recommendation at Discharge: To be determined Suggested Referrals: N/A Recommended Procedures: Will monitor need for MBSS Education Provided to: Patient, Family (spouse, dtr), nsg Topics Addressed: MI[employer]OS[employer] DYNAM[employer] MANAGER ARCHITECT findings, risk for aspiration pneumonia vs risk for disuse atrophy, aspiration precautions PLAN: Frequency: 3-4x/week for 1-2 weeks Goals: Case Packer Goals: Patient will remain free from aspiration-related illness, malnutrition, and dehydration. Short Term Goals: Patient will tolerate Puree Diet and Thin liquids without overt s/s aspiration across 2/2 visits. Patient will tolerate PO trials for consideration of diet upgrade without overt s/s aspiration across 2/2 visits. MI[employer]OS[employer] DYNAM[employer] MANAGER ARCHITECT CPT Code: 47950 Clinical Swallowing Evaluation TOTAL TIME: 20 Minutes (12:00-12:10, 12:45-12:55)
[2025-08-06 14:53] LABS: Troponin I 537 ng/L (<or=76)
--- NOTE | 2025-08-06 16:15 | PGE_ITS ---
Date of Service Date of service: 08/06/25 Time of Service: 16:15 Assessment and Plan Assessment and plan (1) Acute metabolic encephalopathy: Status: Acute Assessment and plan: 2-3 weeks of worsening mentation with lethargy Labs not suggestive of hepatic encephalopathy, ammonia initially within normal limits Chronic hepatic disease evident in LFTs CT/CTA head remarkable only for left common carotid 60-70% stenosis, will not work up acutely Unable to complete MRI and echocardiogram due to patient refusal on admission. He was combative, striking staff. Challenging assessment as he is agitated and violent with interventions. He does not permit IV placement Jul 12 Patient remains altered and unable to communicate. He is not swallowing without effort and is unable to hold a container to serve himself. No behavior problems after starting seroquel and trazodone. No zyprexa needed nor given. Lengthy discussion at bedside with patient's son, daughter and daughter in law, with ex-/partner on the phone. Until 3 weeks ago, he had been drinking heavily, daily. 3 weeks ago he became to weak to get up for supply. Until 3 weeks ago, family reports he had been independent, coherent, and at his normal level of function. However, family reports that patient has not eaten much for a long time due to trouble swallowing. Will chew to get the flavor and spit it out. Family reports that when his friends visit he uses drugs with them. Family reports that [place] dangerous neighborhood where peaceful sleep is unlikely. Discussed likelyhood of longstanding dementia, malnutrition, sleep deficit, dehydration. Line placement has been unsuccessful. Requested help from anesthesia, who were able to place a 20g PIV and he has been started on IV fluids. Plan is to maintain hydration and work to assess mentation. Aug 04 - Ammonia level is elevated, but deferred lactulose until he has had some nutrition - Troponin still trending up. EKG showing low voltage but otherwise NSR. - Late afternoon patient able to speak fairly clearly to his son and he was laughing - Started spoonfuls of ice cream. Continued D5NS and daily labs. IV is intact. Jul 14 - Improving mentation - Continue IV hydration, PO intake as tolerated Jul 15 - MRI showed new multifocal ischmia, c/w embolic stroke. - needed sedation with lorazepam, which complicates current evaluation. - f/u teleneuro - palliative care also consulted. (2) Elevated troponin: Status: Acute Assessment and plan: Troponin 421->max 1016 08/04 -> 537. He has not had chest pain. Echocardiogram without focal findings 08/06. EKG unremarkable other than mild tachycardia In setting of cocaine use and CVA. (3) Carotid stenosis, left: Status: Acute Assessment and plan: Noted as above, no acute intervention (4) Alcohol dependence: Status: Acute Assessment and plan: EtOH level below measurable threshold UDS positive for cocaine, h/o polysubstance abuse No withdrawal protocol at this time as he does not apparently use any substance daily Per family report, last drink likely 3 weeks prior to arrival (5) Lactic acidosis: Status: Acute Assessment and plan: VBG lactic acid elevated 2.8, no evidence of infection, renal disease Possibly due to hepatic failure slight trend down 08/03. (6) History of intracranial hemorrhage: Status: Acute Assessment and plan: - Noted, complicates anticoagulation (7) Alcoholic cirrhosis: Status: Acute Assessment and plan: H/o alcohol use disorder and hep C apprently never treated. Labs c/w decompensated cirrhosis vs alcoholic hepatitis, possible acute on chronic liver failure Hepatitis panel not done recently, will order as recent HAV in region Get u/s with doppler to identify cirrhosis, Mendez Bunch Continue supportive care (8) Acute cerebrovascular accident (CVA): Status: Acute Assessment and plan: as above. I talked with teleneurology. They recommended ASA rectal for now. Statin contraindicated with acute on chroinc liver failure Consider repeat echo since low quality, but no anticoagulation with no clot seen. PT and speech already ordered. Subjective Subjective Patient reports: denies diarrhea, vomiting or fever Interval history since last seen: Events: MRI this morning, required sedation with 1mg lorazepam (hit tech at first MRI attempt) He is still sedated after his MRI. Is not responding to questions, vocalizes non-specifically with exam. Exam Narrative Exam Narrative: General: This is a chronically-ill appearing man in no acute distress HEENT: Normocephalic, atraumatic, icteric. CV: RRR, no murmur Resp: CTAB, normal effort Abd: soft, NTND, +BS. I don't appreciate fluid wave or shifting dullness Neuro: Somnolent, moving extremities symmetrically Objective Last Vital Signs Temp 37.2 C 08/06/25 07:58 Pulse 112 H 08/06/25 07:58 Resp 17 08/06/25 07:58 BP 155/75 H 08/06/25 07:58 Pulse Ox 93 08/06/25 07:58 Laboratory Results - last 24 hr 08/06/25 08/06/25 07:55 12:17 WBC 16.71 H RBC 2.87 L Hgb 10.8 L Hct 32.2 L MCV 112 H D MCH 37.6 H MCHC 33.5 RDW 18.6 H Plt Count 211 MPV 9.9 Immature Gran % 0.2 Neutrophils % 89.1 Lymphocytes % 5.4 Monocytes % 4.5 Eosinophils % 0.1 Basophils % Not Applicable Absolute Neutrophils 14.89 H Absolute Lymphocytes 0.90 L Absolute Monocytes 0.75 Absolute Eosinophils 0.02 Absolute Basophils Not Applicable RBC Morphology See Below Macrocytosis 2+ PT 15.5 H 15.9 H INR 1.6 H 1.6 H Sodium 146 H 146 H Potassium 3.5 3.7 Chloride 114 H 115 H Carbon Dioxide 20.8 L 20.2 L Anion Gap 11.2 H 10.8 BUN 16 16 Creatinine 0.9 0.8 Est GFR (CKD-EPI 2020) 94.19 97.61 Glucose 142 H 125 H Calcium 8.5 8.4 L Total Bilirubin 6.7 H 6.1 H AST 504 H 477 H ALT 79 H 76 H Alkaline Phosphatase 138 H 127 H Ammonia 39 H Troponin I 537 H* Total Protein 6.6 6.2 L Albumin 1.8 L 1.7 L PAWSS Have you Been Recently Intoxicated or Drunk Within the Last 30 days?: Unable to Obtain Have you Ever Experienced Previous Episodes of Alcohol Withdrawal?: Unable to Obtain Have you ever Experienced Withdrawal Seizures?: Unable to Obtain Have you ever Experienced Delirium Tremens(DT)s?: Unable to Obtain Have you ever undergone Alcohol Rehabilitation Treatment (i.e, inpt ot outpatient treatment programs)?: Unable to Obtain Have you ever Experienced Blackouts?: Unable to Obtain Have you ever Combined Alcohol with other Downers within the last 90 days?: Unable to Obtain Have you ever Combined Alcohol with any other Substance of Abuse during the last 90 days?: Unable to Obtain Positive Blood Alcohol level on Presentation? [PCS.BAL]: Unable to Obtain Evidence of Increased Autonomic Activity (i.e. HR>120, tremor, sweating, agitation, nausea)?: Unable to Obtain Time Spent with Patient Time Spent with Patient: >50 minutes Time was spent: preparing to see the patient(eg.review tests), obtaining and/or reviewing separately otained hiistory, ordering medications,tests, procedures, referring, communicating with other health early breastfeeding care specialist, indepentently interpreting results, counseling the patient and care coordination
--- NOTE | 2025-08-06 16:33 | PT.INNT ---
PT Notes Visit Reasons: TIA (cardiology) PT Consultation placed on 08/02/2025. Attempts have been made x 5 days however pt has been somnolent, unable to participate in PT assessment. recommend PT Consult to be discontinued until level of alertness improves. Awaiting results of the MRI and then Teleneurology prior to ReConsult for PT.
[2025-08-06] MEDS: PHYTONADIONE 10 MG in Normal Saline 50 ML 200 MG IVPB (17:11)
[2025-08-06] MEDS: Lidocaine 5% Patch 1 PATCH TP (17:11)
[2025-08-06] MEDS: Aspirin 300 MG SUPP PR (17:56)
[2025-08-06] MEDS: POTASSIUM CHLORIDE/D5-0.45NACL 1,000 ML 100 MEQ IV (18:42)
[2025-08-06 19:21] VITALS: BP 155/76; PULSE 109; RESP 20; TEMP 36.8; O2SAT 92
--- NOTE | 2025-08-07 | DI.US_ITS ---
Exam(s) US ABDOMEN EXAM: US ABDOMEN CLINICAL HISTORY: liver failure, etoh. Cirrhosis? Budd Chiari? TECHNIQUE: Ultrasound abdomen performed using standard protocol. COMPARISON: CT CT CHEST/ABD/PEL W from 07/28/[address] THORACIC LUMBAR SPINE REC from 07/28/2024 FINDINGS: ABDOMINAL AORTA AND IVC: Visualized portions normal caliber. PANCREAS: Normal where visualized. LIVER: The liver has a nodular contour. There is a coarsened echotexture. Hepatopetal flow in the Portal Vein. No evidence of a hepatic mass. The liver measures 20.4cm long. There is a prominent left lobe of the liver. GALLBLADDER:No evidence of cholelithiasis. There is diffuse thickening of the wall of the gallbladder up to 1 cm. This likely is secondary to the poor liver function and ascites. No pericholecystic fluid identified. There is some sludge seen within the gallbladder. BILIARY SYSTEM: Common bile duct measures < 7 mm. No intrahepatic biliary ductal dilation. CHASE'S SIGN: Negative. KIDNEYS: Kidneys are symmetric in size. No evidence of renal calculi. No evidence of hydronephrosis. No renal mass or cyst identified. SPLEEN: Not enlarged. 11.6 cm. ASCITES: There is a small to moderate amount of ascites in the abdomen. IMPRESSION: 1. The liver is enlarged with a nodular contour and coarsened echo texture. The findings can be seen with hepatic cirrhosis. 2. Small to moderate amount of abdominal ascites. 3. Diffuse thickening of the wall of the gallbladder which is likely secondary to the decreased liver function and ascites. Cholecystitis cannot be entirely excluded. 4. Upper limits of normal size spleen. DATA REPOSITORY:
--- NOTE | 2025-08-07 | DI.RAD_ITS ---
Exam(s) XR PORTABLE CHEST AP EXAM: XR PORTABLE CHEST AP CLINICAL HISTORY: cough, hypoxia. TECHNIQUE: 2D digital imaging was performed. COMPARISON: Chest x-ray 04/20/2020 FINDINGS: Single AP portable view. Heart size normal. The mediastinum is not widened. There is a prominent area of infiltrate in the right lower lobe and right pleural effusion. There is mild infiltrate in the left lower lobe. No obvious left pleural effusion. Plate in the lower cervical spine is again noted. IMPRESSION: Prominent area of right lower lobe infiltrate. Also lesser amount of infiltrate in left lower lobe. Right pleural effusion noted. DATA REPOSITORY: RADIATION DOSE DELIVERED:
[2025-08-07] MEDS: POTASSIUM CHLORIDE/D5-0.45NACL 1,000 ML 100 MEQ IV ×2 (06:38→17:22)
[2025-08-07 07:34] VITALS: BP 138/74; PULSE 90; RESP 20; TEMP 36.6; O2SAT 91
[2025-08-07 08:04] LABS: HCT 34.5 % (40.0-50.0); HGB 11.3 g/dL (13.5-17.5); MCH 37.2 pg (27.0-33.0); MCHC 32.8 % (32.0-36.0); MCV 114 fL (80-95); MPV 10.4 fL (8.0-11.0); Platelet Count 219 10^3/uL (130-400); RBC 3.04 10^6/uL (4.36-5.78); RDW 19.1 % (11.8-14.1); RDW-SD 79.6 fL; WBC 11.70 10^3/uL (4.4-10.8)
[2025-08-07] MEDS: Aspirin E.C. 81 MG TABEC PO (08:20)
[2025-08-07] MEDS: QUEtiapine 25 MG TAB PO (08:20)
[2025-08-07] MEDS: Patch Removal 1 EACH TP (08:21)
[2025-08-07] MEDS: Normal Saline Flush 10 ML SYR IVP (08:21)
[2025-08-07 08:33] LABS: ALT 67 U/L (16-63); AST 421 U/L (15-37); Albumin 1.6 g/dL (3.4-5.0); Alkaline Phosphatase 123 U/L (46-116); Bilirubin, Direct 5.2 mg/dL (0.0-0.2); Bilirubin, Total 6.3 mg/dL (0.2-1.0); Total Protein 6.3 g/dL (6.4-8.2)
[2025-08-07 09:08] LABS: INR 1.4 (0.9-1.1); Prothrombin Time 13.9 sec (9.1-11.1)
--- NOTE | 2025-08-07 16:23 | PDOC.CMPRO ---
Date of service: 08/07/25 Time of Service: 16:23 Care Management Progress Note Progress Note Text Progress Note Text: Ollie is not making much progress. He is minimally responsive to voice, although on occasion he does appear to be understanding what is said. Dr. Shipley was in to see the family today and spoke of Ollie's poor chances of recovery. Unfortunately, while Dr. Shipley was trying to discuss Ollie's condition, Ollie's son was talking with his sister and stated that he did not trust this hospital or it's providers. Dr. Shipley asked what he could do - family would like more often VS checks, but also seem frustrated that Ollie is not really improving. Dr. Shipley also ordered a CXR, which was done to r/o aspiration pneumonia. CM spoke with Susanna, Ollie's daughter and [facility], she seems to understand what Dr. Shipley was saying, her dad may not make further improvements. Family has promised ollie that he would not be put in a alf, and they are trying to figure out arrangements for caregiving. Palliative care will be in tomorrow to address goals of care and introduce hospice. COA was also in today and spoke with family regarding Choices for Care. Application was signed by Susanna who is POA. COA will flower buncher or picker from later in the week. Discharge Potential Discharge Needs: PCP F/U Appt Anticipated Barriers to Discharge: Medical Status Patient/Family Education Needs: Review discharge instructions, discuss Ask Me Three Transportation: EMS Plan: Ollie's plan is still uncertain. His family has been strongly encouraged by CM to have the hard discussions and talk about what they would like for their dad. Palliative care will be in tomorrow for consult. CM will continue to follow. Social Determinants of Health Screening Will the Patient Participate in the Screening?: Declined to provide Do you worry about having a steady place to live?: choose not to answer In the past 12 months, have you had to go without electric, gas, oil or water in your home?: choose not to answer Has lack of transportation kept you from medical appointments or from doing things needed for daily living?: choose not to answer Has anyone in your life made you feel unsafe or unsupported?: choose not to answer Do you speak a language other than Marshallese at home?: No Comments: Pt is refusing to participate in admission process. He reports I'm not doing anything when asked to step on standing scale Health Related Social Needs Health related social needs: material hardship(utilities) (Z59.12) Health related social needs details: unable to assess
--- NOTE | 2025-08-07 16:27 | PDOC.STREC ---
Date of service: 08/07/25 Time of Service: 16:27 Speech Therapy Recommendations Report ST Recommendations: CAPACITOR REPAIRER attempting to contact patient x2 this date, but RN reporting he is too somnolent, unrousable since morning, not maintaining level of alertness appropriate for PO intake or for PO medication delivery. RN does note that with tsp thin liquids this morning, patient without s/sx aspiration. Does note wet cough occasionally at baseline, suspicious for inadequate secretion management ISO decreased alertness. Recommend to maintain PO recommendations as per yesterday's swallow eval, only provide PO if patient is adequately alert: Diet Recommendations: SOLIDS- L4 Puree solids LIQUIDS - L0 Thin Liquids - SMALL SINGLE SIP, PINCH STRAW MEDICATIONS - crushed in puree SUPERVISION - 1:1 assist STRATEGIES: Low threshold to discontinue PO/NPO if signs of aspiration appreciated such as wet cough/wet voice immediately following PO [place] upright 90 degrees for all PO and at least 30 min after Oral care before/after meals Small/slow bites and sips
--- NOTE | 2025-08-07 17:15 | W.PM.PROGNOT ---
Date of Service Date of service: 08/07/25 Time of Service: 17:15 Assessment and Plan Assessment and plan (1) Acute metabolic encephalopathy: Status: Acute Assessment and plan: 2-3 weeks of worsening mentation with lethargy Labs not suggestive of hepatic encephalopathy, ammonia initially within normal limits Chronic hepatic disease evident in LFTs CT/CTA head remarkable only for left common carotid 60-70% stenosis, will not work up acutely Unable to complete MRI and echocardiogram due to patient refusal on admission. He was combative, striking staff. Challenging assessment as he is agitated and violent with interventions. He does not permit IV placement Jul 12 Patient remains altered and unable to communicate. He is not swallowing without effort and is unable to hold a container to serve himself. No behavior problems after starting seroquel and trazodone. No zyprexa needed nor given. Lengthy discussion at bedside with patient's son, daughter and daughter in law, with ex-/partner on the phone. Until 3 weeks ago, he had been drinking heavily, daily. 3 weeks ago he became to weak to get up for supply. Until 3 weeks ago, family reports he had been independent, coherent, and at his normal level of function. However, family reports that patient has not eaten much for a long time due to trouble swallowing. Will chew to get the flavor and spit it out. Family reports that when his friends visit he uses drugs with them. Family reports that he [place] in a dangerous neighborhood where peaceful sleep is unlikely. Discussed likelyhood of longstanding dementia, malnutrition, sleep deficit, dehydration. Difficult IV, but started Aug 04 - Ammonia level is elevated, but deferred lactulose until he has had some nutrition - Troponin still trending up. EKG showing low voltage but otherwise NSR. - Late afternoon patient able to speak fairly clearly to his son and he was laughing - Started spoonfuls of ice cream. Continued D5NS and daily labs. IV is intact. Jul 14 - Improving mentation - Continue IV hydration, PO intake as tolerated Jul 15 - MRI showed new multifocal ischemia, c/w embolic stroke. - needed sedation with lorazepam, which complicates current evaluation. - f/u teleneuro - palliative care also consulted. Jul 16 - MS still worse than 08/04- since lorazepam. Try to resume lactulose to treat encephalopathy. - stop AM quetiapine, just in evening to help sleep - check VBG with next blood draw, but down this is hypercarbia as no history of this (2) Elevated troponin: Status: Acute Assessment and plan: Troponin 421->max 1016 08/04 -> 537. He has not had chest pain. Echocardiogram without focal findings 08/06. EKG unremarkable other than mild tachycardia In setting of cocaine use and CVA. Follow again in AM 08/08 (3) Carotid stenosis, left: Status: Acute Assessment and plan: Noted as above, no acute intervention (4) Alcohol dependence: Status: Acute Assessment and plan: EtOH level below measurable threshold UDS positive for cocaine, h/o polysubstance abuse No withdrawal protocol at this time as he does not apparently use any substance daily Per family report, last drink likely 3 weeks prior to arrival, but he was a heavy drinker. (5) Lactic acidosis: Status: Acute Assessment and plan: VBG lactic acid elevated 2.8, no evidence of infection, renal disease Possibly due to hepatic failure slight trend down 08/03. (6) Alcoholic cirrhosis: Status: Acute Assessment and plan: H/o alcohol use disorder and hep C apprently never treated. Labs c/w decompensated cirrhosis vs alcoholic hepatitis, possible acute on chronic liver failure Hepatitis panel not done recently, will order as recent HAV in region Get u/s with doppler to identify cirrhosis, Mendez Bunch Continue supportive care (7) Acute cerebrovascular accident (CVA): Status: Acute Assessment and plan: as above. D/w with teleneurology. They recommended ASA rectal for now. Statin contraindicated with acute on chronic liver failure Consider repeat echo since low quality, but no anticoagulation with no clot seen. PT and speech ordered. Resume telemetry monitoring (8) Aspiration pneumonia: Status: Acute Assessment and plan: CXR and history c/w likely aspiration Treat with amp/sulbactam and doxycycline for now Albuterol/ipratropium prn Seen by BLUEPRINT CUTTER, now aspiration precautions (9) Discharge planning issues: Status: Acute Assessment and plan: I discussed poor prognosis with family with liver failure and recurrent stroke. They agreed, but then son/daughter became upset that we weren't being more aggressive with care. They did confirm DNR/DNI, need [facility]ice discussed, but after their concerns we tabled this for now. They absolutely don't want SNF. Subjective Subjective Patient reports: denies diarrhea, vomiting or fever Interval history since last seen: Events: No further events, still somnolent, minimally responsive but he does swallow some oral medications/food Family concerned that he seems to be breathing heavier. They checked his oxygen and it was 87% (per vitals 91% but this lower than previous 98%). They understand he is very sick, but they feel like we should be doing more to treat him. Exam Narrative Exam Narrative: General: This is a chronically-ill appearing man in no acute distress, still somnolent, does respond to touch/voice but doesn't follow commands HEENT: Normocephalic, atraumatic, icteric. CV: RRR, no murmur Resp: Breath sounds more course, no focal rales or wheeze. some increase in respiratory effort Abd: soft, NTND, +BS. I don't appreciate fluid wave or shifting dullness Neuro: Somnolent, moving extremities symmetrically Objective Last Vital Signs Temp 36.6 C 08/07/25 07:34 Pulse 90 08/07/25 07:34 Resp 20 08/07/25 07:34 BP 138/74 08/07/25 07:34 Pulse Ox 91 L 08/07/25 07:34 Laboratory Results - last 24 hr 08/07/25 08/07/25 08/07/25 07:50 08:30 08:45 WBC 11.70 H RBC 3.04 L Hgb 11.3 L Hct 34.5 L MCV 114 H MCH 37.2 H MCHC 32.8 RDW 19.1 H Plt Count 219 MPV 10.4 PT 13.9 H INR Cancelled 1.4 H Total Bilirubin 6.3 H Conjugated Bilirubin 5.2 H AST 421 H ALT 67 H Alkaline Phosphatase 123 H Total Protein 6.3 L Albumin 1.6 L PAWSS Have you Been Recently Intoxicated or Drunk Within the Last 30 days?: Unable to Obtain Have you Ever Experienced Previous Episodes of Alcohol Withdrawal?: Unable to Obtain Have you ever Experienced Withdrawal Seizures?: Unable to Obtain Have you ever Experienced Delirium Tremens(DT)s?: Unable to Obtain Have you ever undergone Alcohol Rehabilitation Treatment (i.e, inpt ot outpatient treatment programs)?: Unable to Obtain Have you ever Experienced Blackouts?: Unable to Obtain Have you ever Combined Alcohol with other Downers within the last 90 days?: Unable to Obtain Have you ever Combined Alcohol with any other Substance of Abuse during the last 90 days?: Unable to Obtain Positive Blood Alcohol level on Presentation? [PCS.BAL]: Unable to Obtain Evidence of Increased Autonomic Activity (i.e. HR>120, tremor, sweating, agitation, nausea)?: Unable to Obtain Time Spent with Patient Time Spent with Patient: >50 minutes Time was spent: preparing to see the patient(eg.review tests), obtaining and/or reviewing separately otained hiistory, ordering medications,tests, procedures, referring, communicating with other health home health care coordinator, indepentently interpreting results, counseling the patient and care coordination
[2025-08-07] MEDS: Lidocaine 5% Patch 1 PATCH TP (17:17)
[2025-08-07] MEDS: AMPICILLIN/SULBACTAM 3 GM in Normal Saline 100 ML IVPB (17:57)
[2025-08-07] MEDS: DOXYCYCLINE 100 MG in Normal Saline 100 ML IVPB (18:34)
[2025-08-07 19:42] LABS: MRSA PCR Negative (Negative)
[2025-08-07 19:48] VITALS: BP 146/83; PULSE 110; RESP 18; TEMP 36.6; O2SAT 93
[2025-08-07] MEDS: Lactulose 20 GM/30 ML CUP 200 GM PO (23:53)
[2025-08-08] MEDS: AMPICILLIN/SULBACTAM 3 GM in Normal Saline 100 ML IVPB ×5 (01:01→23:43)
[2025-08-08] MEDS: Normal Saline Flush 10 ML SYR IVP ×2 (01:02→19:39)
[2025-08-08 05:30] VITALS: O2SAT 88
[2025-08-08 05:45] VITALS: O2SAT 94
[2025-08-08] MEDS: DOXYCYCLINE 100 MG in Normal Saline 100 ML IVPB ×2 (05:45→18:11)
[2025-08-08 07:11] LABS: BE (Venous) -7 mmol/L (-2-3); HCO3 (Venous) 18 mmol/L (23-28); O2 Sat (Venous) 77 %; TCO2 (Venous) 17 mmol/L (24-29); pCO2 (Venous) 28 mmHg (41-51); pO2 (Venous) 44 mmHg
[2025-08-08 07:47] LABS: HCT 31.6 % (40.0-50.0); HGB 10.5 g/dL (13.5-17.5); MCH 36.8 pg (27.0-33.0); MCHC 33.2 % (32.0-36.0); MCV 111 fL (80-95); MPV 10.1 fL (8.0-11.0); Platelet Count 211 10^3/uL (130-400); RBC 2.85 10^6/uL (4.36-5.78); RDW 19.6 % (11.8-14.1); RDW-SD 78.8 fL
[2025-08-08 07:55] LABS: ALT 60 U/L (16-63); AST 333 U/L (15-37); Albumin 1.5 g/dL (3.4-5.0); Alkaline Phosphatase 116 U/L (46-116); Anion Gap 11.9 mmol/L (3-11); BUN 26 mg/dL (7-18); Bilirubin, Total 6.5 mg/dL (0.2-1.0); CO2 19.1 mmol/L (21.0-32.0); Calcium 8.3 mg/dL (8.5-10.1); Chloride 117 mmol/L (98-107); Estimated GFR 94.19 (mL/min/1.73m2); Glucose 118 mg/dL (74-106); Potassium 4.0 mmol/L (3.5-5.1); Sodium 148 mmol/L (136-145); Total Protein 6.1 g/dL (6.4-8.2)
[2025-08-08 07:58] LABS: Troponin I 519 ng/L (<or=76)
--- NOTE | 2025-08-08 09:00 | NUR.NOTE ---
Accessed Pt chart to print a face sheet for [employer]. I then faxed it to them.
[2025-08-08 09:31] LABS: WBC 11.62 10^3/uL (4.4-10.8)
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
[2025-08-08] MEDS: Patch Removal 1 EACH TP (11:08)
[2025-08-08 11:59] LABS: Hepatitis A Antibody IgM Negative (Negative); Hepatitis C Ab w Rflx HCV PCR Reactive (Negative)
[2025-08-08] MEDS: POTASSIUM CHLORIDE/D5-0.45NACL 1,000 ML 100 MEQ IV (13:58)
--- NOTE | 2025-08-08 16:14 | PDOC.CMPRO ---
Date of service: 08/08/25 Time of Service: 16:14 Care Management Progress Note Progress Note Text Progress Note Text: Ollie has been more alert today. He has tried to talk, is using his arms more, and has had much more awake time. Yesterday he was started on antibiotics for an aspiration pneumonia, and his trazadone and seroquel were changed to night time only. Susanna and Cassandra were present for a palliative care consult today. They will meet with Palliative again on Wednesday, and are leaning on taking Ollie home to Katlin's house with hospice supports. CF application was faxed by CM to [place] [facility] today as well. Discharge Potential Discharge Needs: PCP F/U Appt Anticipated Barriers to Discharge: None Identified Patient/Family Education Needs: Review discharge instructions, discuss Ask Me Three Transportation: EMS Plan: Ollie will likely discharge home on hospice services. He will live with Katlin, with the additional supports of his children. He will f/u with the hospice provider and continue per his plan of care. CM will continue to follow. Social Determinants of Health Screening Will the Patient Participate in the Screening?: Declined to provide Do you worry about having a steady place to live?: choose not to answer In the past 12 months, have you had to go without electric, gas, oil or water in your home?: choose not to answer Has lack of transportation kept you from medical appointments or from doing things needed for daily living?: choose not to answer Has anyone in your life made you feel unsafe or unsupported?: choose not to answer Do you speak a language other than Romanian at home?: No Comments: Pt is refusing to participate in admission process. He reports I'm not doing anything when asked to step on standing scale Health Related Social Needs Health related social needs: material hardship(utilities) (Z59.12) Health related social needs details: unable to assess Anticipated HH Services Anticipated HH Services at Discharge [facility] Needed, Hospice.
--- NOTE | 2025-08-08 16:36 | PGE_ITS ---
Date of Service Date of service: 08/08/25 Time of Service: 16:36 Assessment and Plan Assessment and plan (1) Acute cerebrovascular accident (CVA): Status: Acute Assessment and plan: Multifocal ischemic stroke that is new. This is the main cause for MS changes that led to his presentation. D/w with teleneurology. They recommended aspirin. Statin contraindicated with acute on chronic liver failure Consider repeat echo since low quality, but no anticoagulation with no clot seen. PT and speech ordered. Resumed telemetry monitoring (2) Acute metabolic encephalopathy: Status: Acute Assessment and plan: He has remained encephalopathic since admssion, related to stroke as above. Ammonia also elevated with decompensated liver disease, so we are trying to treat with some lactulose rectally to see if this helps his mental status. Some waxing/waning could be element of hepatic encephalopathy, but also could be the effect of sedating medations including lorazepam before his MRI 08/06 Managing agitiation with quetiapine, stopped AM dose 08/07 as was too sedating. 2-3 weeks of worsening mentation with lethargy VBG not c/w hypercarbia contributing (3) Carotid stenosis, left: Status: Acute Assessment and plan: Noted as above, no acute intervention (4) Alcohol dependence: Status: Acute Assessment and plan: EtOH level below measurable threshold on admission. UDS positive for cocaine, h/o polysubstance abuse, he does use cocaine/crack reg ularly No withdrawal noted Per family report, last drink likely 3 weeks prior to arrival, but he was a heavy drinker. (5) Lactic acidosis: Status: Acute Assessment and plan: VBG lactic acid elevated 2.8, no evidence of infection, renal disease Possibly due to hepatic failure, has not resolved. (6) Alcoholic cirrhosis: Status: Acute Assessment and plan: H/o alcohol use disorder and hep C apprently never treated. Labs c/w decompensated cirrhosis vs alcoholic hepatitis, possible acute on chronic liver failure Hepatitis panel not done recently, negative other than known HCV Got u/s, asked for doppler to identify cirrhosis, Budd Chiari. Cirrhosis noted but not vascular report Continue supportive care (7) Aspiration pneumonia: Status: Acute Assessment and plan: CXR and history c/w likely aspiration noted 08/07 Treatment started with amp/sulbactam and doxycycline for now Albuterol/ipratropium prn Seen by VOCATIONAL TRAINER, now aspiration precautions, getting minimal to no PO now. (8) Elevated troponin: Status: Acute Assessment and plan: Troponin 421->max 1016 08/04 -> 519. He has not had chest pain, but not clearing troponins. Echocardiogram without focal findings 08/06. EKG unremarkable other than mild tachycardia In setting of cocaine use and CVA. On ASA, can't get statin for now. (9) Discharge planning issues: Status: Acute Assessment and plan: I discussed poor prognosis with family with liver failure and recurrent stroke. They agreed, but then son/daughter became upset that we weren't being more aggressive with care 08/07 Daughter and patient did confirm DNR/DNI, COLST done by Mariangel Rush palliative, who saw the patient with his daughter today Hospice discussed, but after their concerns we tabled this for now. They absolutely don't want SNF. He may end up getting end of life care here. (10) Hypernatremia: Status: Acute Assessment and plan: Not able to eat. Change fluids to D5 1/4NS and increase rate for now. Subjective Subjective Patient reports: voiding w/o difficulty; denies diarrhea, vomiting or fever Interval history since last seen: Events: Given one dose of rectal lactulose Morning quetiapine stopped Started on amp/sulbactam for aspiration Tele resumed and O2 montitoring. Not hypoxic. No events on tele Per family more interactive today. Mouth is dry, they are using swab, but hasn't been able to eat. He responds with short answers to some direct questions. They feels like breathing is a little better. Exam Narrative Exam Narrative: General: Thin, chronically-ill appearing man in no acute distress, more alert, opens eyes are frequently gesturing like he is smoking an imaginary pipe HEENT: Normocephalic, atraumatic, icteric. MM dry CV: RRR, no murmur Resp: Breath sounds slightly course, no focal rales or wheeze. normal respiratory effort Abd: soft, NTND, +BS. I don't appreciate fluid wave or shifting dullness Neuro: Less somnolent but still not fully alert, moving extremities symmetrically Objective Last Vital Signs Temp 36.6 C 08/07/25 19:48 Pulse 110 H 08/07/25 19:48 Resp 18 08/07/25 19:48 BP 146/83 H 08/07/25 19:48 Pulse Ox 94 08/08/25 05:45 Laboratory Results - last 24 hr 08/04/25 08/07/25 08/08/25 06:22 18:05 07:04 WBC 11.62 H RBC 2.85 L Hgb 10.5 L Hct 31.6 L MCV 111 H MCH 36.8 H MCHC 33.2 RDW 19.6 H Plt Count 211 MPV 10.1 VBG pH 7.42 H VBG pCO2 28 L VBG pO2 44 VBG HCO3 18 L VBG Total CO2 17 L VBG O2 Saturation 77 VBG Base Excess -7 L VBG Lactate 3.1 H* Sodium 148 H Potassium 4.0 Chloride 117 H Carbon Dioxide 19.1 L Anion Gap 11.9 H BUN 26 H Creatinine 0.9 Est GFR (CKD-EPI 2020) 94.19 Glucose 118 H Calcium 8.3 L Total Bilirubin 6.5 H AST 333 H ALT 60 Alkaline Phosphatase 116 Troponin I 519 H* Total Protein 6.1 L Albumin 1.5 L Hepatitis A IgM Ab Negative Hep Bs Antigen Negative Hep B Core Total Ab Negative Hepatitis C Antibody Reactive A MRSA (TEM-PCR) Negative PAWSS Have you Been Recently Intoxicated or Drunk Within the Last 30 days?: Unable to Obtain Have you Ever Experienced Previous Episodes of Alcohol Withdrawal?: Unable to Obtain Have you ever Experienced Withdrawal Seizures?: Unable to Obtain Have you ever Experienced Delirium Tremens(DT)s?: Unable to Obtain Have you ever undergone Alcohol Rehabilitation Treatment (i.e, inpt ot outpatient treatment programs)?: Unable to Obtain Have you ever Experienced Blackouts?: Unable to Obtain Have you ever Combined Alcohol with other Downers within the last 90 days?: Unable to Obtain Have you ever Combined Alcohol with any other Substance of Abuse during the last 90 days?: Unable to Obtain Positive Blood Alcohol level on Presentation? [PCS.BAL]: Unable to Obtain Evidence of Increased Autonomic Activity (i.e. HR>120, tremor, sweating, agitation, nausea)?: Unable to Obtain Time Spent with Patient Time Spent with Patient: >50 minutes Time was spent: preparing to see the patient(eg.review tests), obtaining and/or reviewing [facility], ordering medications,tests, procedures, referring, communicating with other health director long term care, indepentently i nterpreting results, counseling the patient and care coordination
[2025-08-08 16:43] VITALS: BP 157/84; PULSE 117; RESP 32; TEMP 36.7; O2SAT 96
[2025-08-08] MEDS: Lidocaine 5% Patch 1 PATCH TP (18:12)
[2025-08-08] MEDS: DEXTROSE IV (19:20)
[2025-08-08] MEDS: [UNRECOGNIZED DRUG - OTHER] IV (19:20)
[2025-08-08 23:18] VITALS: BP 151/87; PULSE 106; RESP 16; TEMP 37.4; O2SAT 93
[2025-08-09] MEDS: DEXTROSE IV ×2 (03:50→14:00)
[2025-08-09] MEDS: [UNRECOGNIZED DRUG - OTHER] IV ×2 (03:50→14:00)
[2025-08-09] MEDS: AMPICILLIN/SULBACTAM 3 GM in Normal Saline 100 ML IVPB ×3 (05:27→19:02)
[2025-08-09] MEDS: DOXYCYCLINE 100 MG in Normal Saline 100 ML IVPB ×2 (06:07→19:51)
[2025-08-09 07:05] LABS: INR 1.5 (0.9-1.1); Prothrombin Time 14.4 sec (9.1-11.1)
[2025-08-09 07:31] LABS: ALT 55 U/L (16-63); AST 309 U/L (15-37); Albumin 1.5 g/dL (3.4-5.0); Alkaline Phosphatase 108 U/L (46-116); Anion Gap 8.8 mmol/L (3-11); BUN 27 mg/dL (7-18); Bilirubin, Total 6.3 mg/dL (0.2-1.0); CO2 22.2 mmol/L (21.0-32.0); Calcium 8.5 mg/dL (8.5-10.1); Chloride 116 mmol/L (98-107); Estimated GFR 94.19 (mL/min/1.73m2); Glucose 119 mg/dL (74-106); Potassium 3.5 mmol/L (3.5-5.1); Sodium 147 mmol/L (136-145); Total Protein 6.3 g/dL (6.4-8.2)
[2025-08-09 08:09] VITALS: BP 142/71; PULSE 101; RESP 16; TEMP 36.6; O2SAT 94
[2025-08-09] MEDS: Aspirin E.C. 81 MG TABEC PO (09:26)
[2025-08-09] MEDS: Lactulose 20 GM/30 ML CUP PO ×3 (09:27→19:50)
[2025-08-09] MEDS: Normal Saline Flush 10 ML SYR IVP ×2 (09:28→19:50)
--- NOTE | 2025-08-09 10:18 | PDOC.CMPRO ---
Date of service: 08/09/25 Time of Service: 10:18 Care Management Progress Note Progress Note Text Progress Note Text: Ollie was lying in bed when CM attempted to meet with him; he appeared to be sleeping, so CM elected not to wake him. CM spoke with his primary RN, who reported that his family members had been visiting through out the day and placed significant pressure on staff to get him out of bed. This request did not happen, as the patient does not appear to be medically able and requires a PT evaluation prior to mobilization. TH RN also noted that the family continues to express strong hope that Ollie will rally, though there have also been discussions regarding a possible transition to [facility] on hospice. Palliative consult is planned for tomorrow to review goals of care and next steps. CM will follow and support discharge planning needs, once discharge plan has been identified. Discharge Potential Discharge Needs: PCP F/U Appt Anticipated Barriers to Discharge: Medical Status Patient/Family Education Needs: Review discharge instructions, discuss Ask Me Three Transportation: EMS Plan: Ollie will likely discharge home on hospice services via EMS. He will live with Katlin, with the additional supports of his children. He will f/u with the hospice provider and continue per his plan of care. CM will continue to follow. Social Determinants of Health Screening Will the Patient Participate in the Screening?: Declined to provide Do you worry about having a steady place to live?: choose not to answer In the past 12 months, have you had to go without electric, gas, oil or water in your home?: choose not to answer Has lack of transportation kept you from medical appointments or from doing things needed for daily living?: choose not to answer Has anyone in your life made you feel unsafe or unsupported?: choose not to answer Do you speak a language other than Romanian at home?: No Comments: Pt is refusing to participate in admission process. He reports I'm not doing anything when asked to step on standing scale Health Related Social Needs Health related social needs: material hardship(utilities) (Z59.12) Health related social needs details: unable to assess
[2025-08-09 11:26] LABS: HCV RNA Detection Quantitative 445000 IU/mL (Undetected); HCV RNA Qualitative Detected (Undetected)
[2025-08-09] MEDS: Lactulose 20 GM/30 ML CUP 200 GM PR (11:37)
--- NOTE | 2025-08-09 12:46 | CHAPLAIN ---
Yesterday I visited with Ollie's neighbor who said she has been helping to take care of Ollie. Ollie was asleep. Friends and family members have been visiting and medical staff are meeting with family members to discuss the goals of care for Ollie. I will continue to visit.
[2025-08-09] MEDS: Enoxaparin 40 MG/0.4 ML SYR SC (13:28)
[2025-08-09] MEDS: Patch Removal 1 EACH TP (14:43)
--- NOTE | 2025-08-09 16:26 | STREC_ITS ---
Date of service: 08/09/25 Time of Service: 16:00 Speech Therapy Recommendations Report ST Recommendations: BLACK AND WHITE PRINTER OPERATOR attempted, patient too somnolent to participate. Per nursing, very limited PO intake with staff but family is providing PO while visiting. Per PT, patient is most alert in the morning.
[2025-08-09] MEDS: Lidocaine 5% Patch 1 PATCH TP (19:03)
[2025-08-09] MEDS: QUEtiapine 25 MG TAB PO (19:03)
[2025-08-09] MEDS: traZODone 50 MG TAB PO (19:51)
[2025-08-09 20:40] VITALS: PULSE 55; RESP 18; TEMP 36.7; O2SAT 92
--- NOTE | 2025-08-09 21:25 | PGE_ITS ---
Date of Service Date of service: 08/09/25 Time of Service: 21:25 Assessment and Plan Assessment and plan (1) Acute cerebrovascular accident (CVA): Status: Acute Assessment and plan: Multifocal ischemic stroke that is new. This is the main cause for MS changes that led to his presentation. D/w with teleneurology. They recommended aspirin. Statin contraindicated with acute on chronic liver failure Consider repeat echo since low quality, but no anticoagulation with no clot seen. PT and speech ordered. Resumed telemetry monitoring (2) Acute metabolic encephalopathy: Status: Acute Assessment and plan: He has remained encephalopathic since admssion, related to stroke as above. Ammonia also elevated with decompensated liver disease, so we are trying to treat with some lactulose rectally to see if this helps his mental status. Some waxing/waning could be element of hepatic encephalopathy, but also could be the effect of sedating medations including lorazepam before his MRI 08/06 Managing agitiation with quetiapine, stopped AM dose 08/07 as was too sedating. 2-3 weeks of worsening mentation with lethargy VBG not c/w hypercarbia contributing He does not seem to be responding to lactulose. I am afraid likelyhood of improvement is small at this point (3) Carotid stenosis, left: Status: Acute Assessment and plan: Noted as above, no acute intervention (4) Alcohol dependence: Status: Acute Assessment and plan: EtOH level below measurable threshold on admission. UDS positive for cocaine, h/o polysubstance abuse, he does use cocaine/crack regularly No withdrawal noted Per family report, last drink likely 3 weeks prior to arrival, but he was a heavy drinker prior to that. (5) Lactic acidosis: Status: Acute Assessment and plan: VBG lactic acid elevated 2.8, no evidence of infection, renal disease Possibly due to hepatic failure, has not resolved. (6) Alcoholic cirrhosis: Status: Acute Assessment and plan: H/o alcohol use disorder and hep C apprently never treated. Labs c/w decompensated cirrhosis vs alcoholic hepatitis causing acute on chronic liver failure Hepatitis panel not done recently, negative other than known HCV Got u/s, asked for doppler to identify cirrhosis, Budd Chiari. Cirrhosis noted but no vascular report Continue supportive care, though unfortunately there hasn't been improvement with supportive care (7) Aspiration pneumonia: Status: Acute Assessment and plan: CXR and history c/w likely aspiration noted 08/07 Treatment started with amp/sulbactam and doxycycline 08/07. Albuterol/ipratropium prn. Has not been hypoxic Seen by [facility], now aspiration precautions, still getting minimal to no PO now. (8) Elevated troponin: Status: Acute Assessment and plan: Troponin 421->max 1016 08/04 -> 519. He has not had chest pain, but not clearing troponins. Echocardiogram without focal findings 08/06. EKG unremarkable other than mild tachycardia In setting of cocaine use and CVA. On ASA, can't get statin for now. (9) Discharge planning issues: Status: Acute Assessment and plan: Have discussed poor prognosis with family with liver failure and recurrent strok e. They agreed, but then son/daughter became upset that we weren't being more aggressive with care 08/07 Daughter and patient did confirm DNR/DNI, COLST done by Mariangel Rush palliative, who saw the patient with his daughter today Hospice discussed, but after their concerns we tabled this for now. They absolutely don't want SNF. He may end up getting end of life care here. I am concerned we are approaching futility at this point. (10) Hypernatremia: Status: Acute Assessment and plan: Not able to eat. Changed fluids to D5 1/4NS and increase rate 08/08, now improving. Subjective Subjective Patient reports: denies diarrhea, vomiting or fever Interval history since last seen: No changes, no new concerns per family or nursing. Exam Narrative Exam Narrative: General: Thin, chronically-ill appearing man in no acute distress, more alert, opens eyes to voice, gesturing like he is smoking an imaginary pipe HEENT: Normocephalic, atraumatic, icteric. MM dry CV: RRR, no murmur Resp: Breath sounds slightly course, no focal rales or wheeze. normal respirat ory effort Abd: soft, NTND, +BS. I don't appreciate fluid wave or shifting dullness Neuro: Less somnolent but still not fully alert, moving extremities symmetrically Objective Last Vital Signs Temp 36.7 C 08/09/25 20:40 Pulse 55 L 08/09/25 20:40 Resp 18 08/09/25 20:40 BP 142/71 H 08/09/25 08:09 Pulse Ox 92 08/09/25 20:40 Laboratory Results - last 24 hr 08/04/25 08/09/25 06:22 06:32 PT 14.4 H INR 1.5 H Sodium 147 H Potassium 3.5 Chloride 116 H Carbon Dioxide 22.2 Anion Gap 8.8 BUN 27 H Creatinine 0.9 Est GFR (CKD-EPI 2020) 94.19 Glucose 119 H Calcium 8.5 Total Bilirubin 6.3 H AST 309 H ALT 55 Alkaline Phosphatase 108 Total Protein 6.3 L Albumin 1.5 L HCV RNA Qual (PCR) Detected A Hepatitis C RNA Quant [id number] H PAWSS Have you Been Recently Intoxicated or Drunk Within the Last 30 days?: Unable to Obtain Have you Ever Experienced Previous Episodes of Alcohol Withdrawal?: Unable to Obtain Have you ever Experienced Withdrawal Seizures?: Unable to Obtain Have you ever Experienced Delirium Tremens(DT)s?: Unable to Obtain Have you ever undergone Alcohol Rehabilitation Treatment (i.e, inpt ot outpatient treatment programs)?: Unable to Obtain Have you ever Experienced Blackouts?: Unable to Obtain Have you ever Combined Alcohol with other Downers within the last 90 days?: Unable to Obtain Have you ever Combined Alcohol with any other Substance of Abuse during the last 90 days?: Unable to Obtain Positive Blood Alcohol level on Presentation? [PCS.BAL]: Unable to Obtain Evidence of Increased Autonomic Activity (i.e. HR>120, tremor, sweating, agitation, nausea)?: Unable to Obtain Time Spent with Patient Time Spent with Patient: 35-49 minutes Time was spent: preparing to see the patient(eg.review tests), obtaining and/or reviewing separately otained hiistory, ordering medications,tests, procedures, referring, communicating with other health healthcare network pricing consultant, indepentently interpreting results, counseling the patient and care coordination
--- NOTE | 2025-08-10 01:16 | W.PM.DDS ---
Date of service: 08/09/25 Time of Service: 23:00 Discharge Plan Disposition Patient Disposition: Discharge Details Reason For Visit: Encephalopathy Admit Date/Time: 08/01/25 13:45 Admit Provider: Marshall Alves Attending Provider: Marshall Alves Primary Care Provider: Kevin Smith Hospital Course Hospital Course: Admitted on 08/01/25 for encephalopathy and weakness On or about 08/06/25 had a deterioration in condition and was diagnosed with a CVA. Between the and the , pt's condition steadily declined. Per note reviewed from palliative care: 08/08/25 plans reviewed today: continue goal of return to previous baseline, transition to [facility] now and EOL in hospital, discharge home on hospice. Pt on 07/1925 at 2120. Discharge Data Cause of : Respiratory arrest Discharge Date/Time-TO BE ENTERED AT DEPARTURE: 08/10/25 01:12 Discharge Sum: Prov Provider Primary care physician: Kevin Smith Admitting clinician: Marshall Alves Attending physician on admission: Obey Shipley Consults: 08/01/25 13:27 [facility] [place] TeleNeurology Consult [CONS] Routine Reason for Consult(Time Sensitive): Other, please specify Specify other Reason for Time Sensitive Consult: stroke vs encephalopathy Consult is: Time Sensitive History of Present Illness: 2 weeks of aphasia, weakness, remote history stroke Images: Images are done Has DI been notified to push images to [facility] [place]: Yes 08/03/25 10:14 Speech Therapy Consult [CONS] Routine Consulting Provider: [facility] Speech Langauge Pathology Type of Consult: Swallow Check all that apply: High Risk choke/asp/PNA Other Reason for Consult: ? choking on water 08/06/25 12:53 Palliative Care Consult [CONS] Routine Consultation Status:: Follow-up needed Clarification:: Manage/follow per spec. Reason for consult:: alcoholic cirrhosis, encephalopathy, heart disease 08/06/25 16:02 [facility] [place] TeleNeurology Consult [CONS] Routine Reason for Consult(Non-Time Sensitive): W/TLKW>24hrs Consult is: Non-Time Sensitive History of Present Illness: follow up, MRI showing multifocal stroke c/w emboli, h/o spont ICH Images: Images are done Has DI been notified to push images to [facility] [place]: Yes 08/09/25 11:04 Physical Therapy Consult [CONS] Routine Consulting Provider: Juan Del Cid,InPatient Priority: Urgent Reason for Urgent Priority: Fall Safety Assessment Safety Consult for D/C Pronouncing clinician: Jacob Boss Discharge Sum: Diag PCOD Cause of : Respiratory arrest Contributing Factors (1) Acute cerebrovascular accident (CVA): (2) Acute metabolic encephalopathy: (3) Carotid stenosis, left: (4) Alcohol dependence: (5) Lactic acidosis: (6) Alcoholic cirrhosis: (7) Aspiration pneumonia: (8) Elevated troponin: (9) Discharge planning issues: (10) Hypernatremia: Discharge Sum: Summary Date and Time Admission Date: 08/01/25 Date of : 08/09/25 Time of : 21:20 Summary Details: Admitted on 08/01/25 for encephalopathy and weakness On or about 08/06/25 had a deterioration in condition and was diagnosed with a CVA. Between the and the , pt's condition steadily declined. Per note reviewed from palliative care: 08/08/25 plans reviewed today: continue goal of return to previous baseline, transition to [facility] now and EOL in hospital, discharge home on hospice. Pt on 07/1925 at 2120. Additional Data Attending Physician: Obey Shipley Was code activated?: No soft work wrapper examiner notified?: Yes
== END 2025-08-10 01:12 | disposition expired | DRG 64 ==
LOC: ER 13:46 → MS 15:23
PROVIDERS: Nurse Practitioner Family; Admitting Provider Family Medicine; Emergency Provider Physician Assistant; PCP Physician Assistant; Responsible Provider Family Medicine; Visit Provider Family Medicine
DX: I63.49 Cerebral infarction due to embolism of other cerebral artery (principal); G93.41 Metabolic encephalopathy; J69.0 Pneumonitis due to inhalation of food and vomit; K72.00 Acute and subacute hepatic failure without coma; E87.21 Acute metabolic acidosis; E87.0 Hyperosmolality and hypernatremia; R74.8 Abnormal levels of other serum enzymes; I65.22 Occlusion and stenosis of left carotid artery; F10.20 Alcohol dependence, uncomplicated; B19.20 Unspecified viral hepatitis C without hepatic coma; Z86.73 Personal history of transient ischemic attack (TIA), and cerebral infarction without residual deficits; R47.1 Dysarthria and anarthria; F17.210 Nicotine dependence, cigarettes, uncomplicated; I10 Essential (primary) hypertension; J44.9 Chronic obstructive pulmonary disease, unspecified; K21.9 Gastro-esophageal reflux disease without esophagitis; R13.10 Dysphagia, unspecified; E78.9 Disorder of lipoprotein metabolism, unspecified; F12.90 Cannabis use, unspecified, uncomplicated; F15.99 Other stimulant use, unspecified with unspecified stimulant-induced disorder; F14.90 Cocaine use, unspecified, uncomplicated; K70.30 Alcoholic cirrhosis of liver without ascites; Z66 Do not resuscitate; K72.10 Chronic hepatic failure without coma; Z51.5 Encounter for palliative care
CPT/HCPCS: 00123; 36415; 70496; 70498; 80053; 80076; 80307; 82550; 82805; 83690; 85027; 86704; 86709; 86803; 87340; 87522; 87641; 92610; 93005; 96372; 99285; J1650; 70551; 71045; 76700; 80320; 82140; 82248; 83605; 83735; 83880; 84439; 84443; 84484; 85025; 85610; 93010; 93306; 99222; 99231; 99232; 99233; J0295; J2003; J2060; J2359; J3411; J3430; J3490; J7042